=== PATIENT | female | born 1970 | race Caucasian/White ===

== ENCOUNTER 2018-10-23 14:30 | Emergency (ER) | payer MEDICAID, SELFPAY ==
[2018-10-23 14:30] VITALS: BP 123/98; PULSE 107; RESP 16; TEMP 37.1; O2SAT 98; BMI 29.2
--- NOTE | 2018-10-23 15:08 | RAD_ITS ---
STUDY: X-RAY - LEFT RADIUS AND ULNA REASON FOR EXAM: Female, 48 years old. Left forearm pain TECHNIQUE: 2 view(s) of the forearm. COMPARISON: None. FINDINGS: There is no demonstrated soft tissue swelling. Normal visualized radius. Normal visualized ulna. RAD/Forearm 2 Views IMPRESSION: Normal x-ray examination of the radius and ulna. Electronically Signed: Jerome Wisdom MD at 15:33 EST , Service support ,
--- NOTE | 2018-10-23 15:11 | ED.DCSUM_ITS ---
- ER Visit Summary Date of Service: 10/23/18 Chief Complaint: [Pain to left arm] History of Present Illness: The patient is a 48 F [presents the emergency department complaint of pain in her left arm that started about 2 weeks ago. Patient denies any trauma. 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 Patient is right-hand dominant. Patient has been seen by primary care physician and has x-rays ordered however she is been busy and unable to follow through with getting those done. Patient complains of pain starting at the elbow and alexia radiating towards the wrist. She denies any fevers.] Physical Examination: [HEENT-PERRLA, EOMI. Cranial nerves II through XII grossly intact. TMs clear. Mucous membranes moist. No adenopathy. Cardiovascular-regular rate and rhythm without murmur or ectopy Lungs-clear to auscultation, chest wall stable without crepitus or subcu emphysema Abdomen-normoactive bowel sounds, soft, nontender, no rebound or rigidity, no peritoneal signs. Extremities-intact ?4, normal range of motion, normal pulses. Left elbow-no erythema or warmth noted. No effusion noted. He has good range of motion flexion extension. Patient has pain with pronation and supination over the radial head. 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 Normal sensation.] Test Results: [X-rays of the left forearm and left elbow were obtained which were negative for fracture or bony lesions.] Emergency Department Course and Treatment: [Patient was given a sling] Treatment Plan: [Patient given a prescription for [place] and advised to follow-up with primary care physician within next 3-5 days.] Disposition: [Discharged home in stable condition] Impression: [Epicondylitis left elbow] This note was generated with [employer] dictation software. It may contain incorrect words, spelling, and punctuation that were not noted in review of the chart prior to signing Pain to the ED Disposition - Plan for ED Patient: Instructions: ED Epicondylitis Lateral Elbow Prescriptions: Hydrocodone Bitart/Apap 5-325 [[place] 5MG-325MG] 1 tab PO Q4H PRN PRN 2 Days #14 tab PRN Reason: Pain Referrals: Gabriel Alcantara DO [Primary Care Provider] - 3-5 Days
--- NOTE | 2018-10-23 15:19 | DCINST.ED_ITS ---
ED Disposition - Plan for ED Patient: Instructions: ED Epicondylitis Lateral Elbow Prescriptions: Hydrocodone Bitart/Apap 5-325 [[place] 5MG-325MG] 1 tab PO Q4H PRN PRN 2 Days #14 tab PRN Reason: Pain Referrals: Gabriel Alcantara DO [Primary Care Provider] - 3-5 Days
--- NOTE | 2018-10-23 15:20 | RAD_ITS ---
STUDY: X-RAY - LEFT ELBOW REASON FOR EXAM: Female, 48 years old. Left elbow pain TECHNIQUE: 3 view(s) of the elbow. COMPARISON: None. FINDINGS: Normal visualized humerus, radius and ulna. Normal radiocapitellar and ulnotrochlear articulations. The soft tissue structures are unremarkable. RAD/Elbow min 3 Views IMPRESSION: Normal x-ray examination of the elbow. Electronically Signed: Jerome Wisdom MD at 15:32 EST , Service support ,
[2018-10-23 15:45] VITALS: PULSE 94; RESP 17; O2SAT 97
== END 2018-10-23 15:46 | disposition home or self-care (01) ==
LOC: ED 15:18
PROVIDERS: Emergency Provider Emergency Medicine; Family Provider Student in an Organized Health Care Education/Training Program; PCP Student in an Organized Health Care Education/Training Program
DX: M77.12 Lateral epicondylitis, left elbow (principal); E78.00 Pure hypercholesterolemia, unspecified; E03.9 Hypothyroidism, unspecified; F32.9 Major depressive disorder, single episode, unspecified; Z72.0 Tobacco use; Z79.899 Other long term (current) drug therapy
CPT/HCPCS: 73080; 73090; 99283

== ENCOUNTER 2018-11-27 18:28 | Emergency (ER) | payer MEDICAID, SELFPAY ==
[2018-11-27 18:29] VITALS: BP 98/56; PULSE 92; RESP 16; TEMP 36.4; O2SAT 97; BMI 26.9
--- NOTE | 2018-11-27 19:01 | ED.VISSUMM ---
- ER Visit Summary Date of Service: 11/27/18 Chief Complaint: [place] eye History of Present Illness: The patient is a 48 F with pinkeye. Symptoms started yesterday. Patient reports red and irritated eyes as well as a goopy discharge. She does not wear contact lenses. Denies vision changes or systemic symptoms. Physical Examination: Patient has bilateral conjunctival injection and purulence, worse on the right. Pupils normal. Extraocular motion normal. Extraocular structures normal. Skin normal. Test Results: None Emergency Department Course and Treatment: Emycin ointment 4x a day for 5 days. Follow up with ophtho as needed. Treatment Plan: As above Disposition: Discharge Impression: 1. Bilateral conjunctivitis This note was generated with [employer] dictation software. It may contain incorrect words, spelling, and punctuation that were not noted in review of the chart prior to signing ED Disposition - Plan for ED Patient: Referrals: Gabriel Alcantara DO [Primary Care Provider] -
--- NOTE | 2018-11-27 19:04 | ED.DCSUM_ITS ---
- ER Visit Summary Date of Service: 11/27/18 Chief Complaint: [place] eye History of Present Illness: The patient is a 48 F with pinkeye. Symptoms started yesterday. Patient reports red and irritated eyes as well as a goopy discharge. She does not wear contact lenses. Denies vision changes or systemic symptoms. Physical Examination: Patient has bilateral conjunctival injection and purulence, worse on the right. Pupils normal. Extraocular motion normal. Extraocular structures normal. Skin normal. Test Results: None Emergency Department Course and Treatment: Emycin ointment 4x a day for 5 days. Follow up with ophtho as needed. Treatment Plan: As above Disposition: Discharge Impression: 1. Bilateral conjunctivitis This note was generated with [employer] dictation software. It may contain incorrect words, spelling, and punctuation that were not noted in review of the chart prior to signing ED Disposition - Plan for ED Patient: Referrals: Gabriel Alcantara DO [Primary Care Provider] -
--- NOTE | 2018-11-27 19:04 | ED.DEP ---
ED Disposition - Plan for ED Patient: Instructions: ED Conjunctivitis Bacterial Referrals: Gabriel Alcantara DO [Primary Care Provider] -
[2018-11-27] MEDS: Erythromycin Base 1 OPTH.TUBE 1 APPLIC EACH EYE (19:14)
== END 2018-11-27 19:15 | disposition home or self-care (01) ==
PROVIDERS: Emergency Provider Emergency Medicine; Family Provider Student in an Organized Health Care Education/Training Program; PCP Student in an Organized Health Care Education/Training Program
DX: H10.9 Unspecified conjunctivitis (principal); Z72.0 Tobacco use
CPT/HCPCS: 99282

== ENCOUNTER 2019-01-10 13:56 | Emergency (ER) | payer MEDICAID, SELFPAY ==
[2019-01-10 13:58] VITALS: BP 109/72; PULSE 61; RESP 16; TEMP 36.8; O2SAT 98; BMI 26.7
--- NOTE | 2019-01-10 14:58 | ED.VIS.GEN ---
History of Present Illness Chief Complaint: Upper Extremity Injury Informant: Patient Onset: Today Context: Sudden Onset Timing: Continuous Quality: Pain near the left scapular spine Location: Left scapular spine Current Severity: Mild Maximum Severity: Moderate Worsened by: Nothing per patient Relieved by: Better if she lies on it Associated Symptoms: No respiratory, cardiac or neurologic symptoms. Narrative: Patient is a middle-age woman who presents with acute onset of left scapular pain that started at 0500. She denies trauma. She denies cough, shortness of breath, difficulty breathing or pleuritic pain. She denies chest discomfort, orthopnea or PND. She denies history of PE or DVT. She denies leg pain, swelling or discoloration. She believes she may have pulled a muscle. She presents because she did not get relief after one ibuprofen tablet. She is a smoker. Prior similar symptoms: No Recent Illness/Hospitalization: No Past Medical History - Allergies and Home Meds Allergies/Adverse Reactions: Allergies Penicillins Allergy (Verified 01/10/19 14:00) Unknown adhesive tape Adverse Reaction (Verified 01/10/19 14:00) Rash Primary Care Physician: Gabriel Alcantara DO [Primary Care Provider] - Prior records reviewed: Yes - Medical history of depression, hypertension, hypercholesterolemia and hypot Surgical History: noncontributory Lives: Alone Smoking Status: Current every day smoker Alcohol: None Review of Systems General: Denies: Chills, Fever, Malaise, Subjective, Sweats, Weight loss, - ENT: Denies: Bilateral ear pain, Rhinorrhea, Sore throat Cardiovascular: Denies: Chest pain, Palpitations, Heart racing, -, - Respiratory: Denies: Dyspnea, Cough, Dyspnea on exertion Genitourinary: Denies: Dysuria, Hematuria, Frequency Musculoskeletal: Reports: Back pain, - - Reports she has history of tennis elbow on the left side and is wondering if it traveled up to her back.. Denies: Myalgias, Arthralgias, Neck pain, Swelling, Extremity Pain Skin: Denies: Rash, Wounds Neurological: Denies: Weakness, Parasthesia, Numbness Hematologic: Denies: Easy bruising, Easy bleeding Physical Exam Vital Signs/Narrative: Vital Signs Temp Pulse Resp BP Pulse Ox 01/10/19 13:58 98.2 F 61 16 109/72 98 Inital Vital Signs reviewed: Yes General: Well nourished, Well developed, No Acute Distress Head: Normocephalic, Atraumatic Eyes: Perrl, EOMI. Negative for: Pale conjunctiva, Scleral icterus, - ENT: Moist mucous membranes, No rhinorrhea Neck: Supple, Nontender, No lymphadenopathy, No JVD, - Cardiovascular: Regular rate, Regular rhythm, No murmurs, Normal S1, Normal S2 Respiratory: No distress, CTA bilaterally Back: Normal Inspection, - - There is pain to palpation medial aspect of the left scapula near this scapular spine.. Negative for: Nontender, CVA tenderness, Spinal tenderness Extremities: Nontender, No edema, - - Is no pain the patient of the shoulder, elbow, wrist or hand.. Negative for: Tenderness, Edema Skin: Normal color, No rash, No Trauma. Negative for: Cyanosis, Jaundice Neurological: Alert, Oriented x3, Cranial nerves II-XII grossly intact, Normal Strength, Normal Sensation, Normal DTR - Biceps, brachialis and triceps reflex are 1+. Excellent, median, radial and ulnar function are intact. Psychological: Normal affect Diagnostic/Tx/Re-eval - Medical Decision Making With reproducible pain and exacerbation with certain movements will treat as muscular pain. Patient's been instructed that her pain will not be alleviated after 1 ibuprofen. She will need to take ibuprofen for several days. Since pain is not pleuritic or exertional doubt pulmonary embolus, doubt cardiac etiology. There is no evidence of trauma. Will treat with anti-inflammatories since there is no contraindication. ED Disposition - Plan for ED Patient: Disposition: Home or Assisted Living Diagnosis: Upper back pain on left side Instructions: ED Spasm Back No Trauma Referrals: Gabriel Alcantara DO [Primary Care Provider] - 3-5 Days if not improving Additional Instructions: Apply ice 20 to 30 minutes per application 6-8 times a day. Take 1 ibuprofen tablet every 8 hours for the next 3 to 5 days. If no improvement follow-up with your primary care physician Dr. Alcantara.
[2019-01-10] MEDS: Ibuprofen 600 MG Tablet 800 MG PO (15:14)
== END 2019-01-10 15:15 | disposition home or self-care (01) ==
PROVIDERS: Emergency Provider Emergency Medicine; Family Provider Student in an Organized Health Care Education/Training Program; PCP Student in an Organized Health Care Education/Training Program
DX: M54.6 Pain in thoracic spine (principal); F17.200 Nicotine dependence, unspecified, uncomplicated
CPT/HCPCS: 99283

== ENCOUNTER 2019-10-10 15:10 | Emergency (ER) | payer MEDICAID, SELFPAY ==
[2019-10-10 15:12] VITALS: BP 120/79; PULSE 89; RESP 18; TEMP 36.6; O2SAT 97; BMI 29.6
--- NOTE | 2019-10-10 15:24 | ED.DCSUM_ITS ---
- ER Visit Summary Date of Service: 10/10/19 Chief Complaint: [Rash History of Present Illness: The patient is a 49 F [presents with a rash that started 3 days ago. Patient states that she woke up with itching to her chest. The rash is now on her wrists also. The rash is pruritic. She denies any new soaps or detergents. She denies any new medications. She denies recent illness. Patient has been to different friends homes but apparently none of them have bed bugs. Patient has had bedbugs in the past.] Physical Examination: [HEENT-PERRLA, EOMI. Cranial nerves II through XII grossly intact. TMs clear. Mucous membranes moist. No adenopathy. Cardiovascular-regular rate and rhythm without murmur or ectopy Lungs-clear to auscultation, chest wall stable without crepitus or subcu emphysema Abdomen-normoactive bowel sounds, soft, nontender, no rebound or rigidity, no p eritoneal signs. Skin exam-patient does have a erythematous papular rash over the central chest that is excoriated areas and inflamed. Patient also has similar-appearing rash on both volar wrists and on some of her fingers. Extremities-intact ?4, normal range of motion, normal pulses, atraumatic] Test Results: [None indicated] Emergency Department Course and Treatment: [We will start on prednisone.] Treatment Plan: [We will be treated with prednisone due to the inflammatory nature of the rash. Patient also will be treated with Elimite as I cannot rule out scabies.] Disposition: [Discharged home in stable condition. 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 It may contain incorrect words, spelling, and punctuation that were not noted in review of the chart prior to signing ED Disposition - Plan for ED Patient: Referrals: Gabriel Alcantara DO [Primary Care Provider] -
--- NOTE | 2019-10-10 15:27 | ED.DEP ---
ED Disposition - Plan for ED Patient: Instructions: Scabies, DERMATITIS, Non-Specific Prescriptions: Prednisone [Deltasone] 20 mg PO BID #10 tab Prescription Printed Permethrin [Elimite] 60 gm TP DAILY #1 cream..g. Prescription Printed Referrals: Gabriel Alcantara DO [Primary Care Provider] - 5-7 Days Villa Guevara MD [STAFF PHYSICIAN] - 5-7 Days
[2019-10-10] MEDS: predniSONE 20 MG Tablet 40 MG PO (16:00)
[2019-10-10 16:01] VITALS: PULSE 80; RESP 16; O2SAT 99
== END 2019-10-10 16:01 | disposition home or self-care (01) ==
LOC: ED 15:33
PROVIDERS: Emergency Provider Emergency Medicine; PCP Student in an Organized Health Care Education/Training Program
DX: L30.9 Dermatitis, unspecified (principal); Z72.0 Tobacco use
CPT/HCPCS: 99283

== ENCOUNTER 2019-12-23 09:32 | Emergency (ER) | payer MEDICAID, SELFPAY ==
[2019-12-23 09:34] VITALS: BP 135/67; PULSE 103; RESP 17; TEMP 36.8; O2SAT 98; BMI 30.1
--- NOTE | 2019-12-23 09:58 | ED.VIS.GEN ---
History of Present Illness Informant: Patient Onset: Weeks - 1 week Context: Gradual Onset Timing: Continuous Quality: inflamed Location: labia Current Severity: Mild Maximum Severity: Mild Worsened by: palpation Relieved by: nothing Associated Symptoms: denies Narrative: 49 year old female resents because she has a cyst on her labia. She noticed it a week ago. Had some mild bleeding. No drainage of purulent material. No fevers. No abdominal pain vomiting or diarrhea and no history of similar Prior similar symptoms: No Recent Illness/Hospitalization: No <Bereket Costello - Last Filed: 12/23/19 10:02> <Bhanu Vallejo - Last Filed: 12/23/19 15:14> Chief Complaint: Female C/O Past Medical History Prior records reviewed: Yes Past Medical History: None Surgical History: noncontributory Lives: Alone Smoking Status: Current every day smoker Alcohol: None Drugs: None <Bereket Costello - Last Filed: 12/23/19 10:02> <Bhanu Vallejo - Last Filed: 12/23/19 15:14> - Allergies and Home Meds Allergies/Adverse Reactions: Allergies Penicillins Allergy (Verified 12/23/19 09:34) Unknown adhesive tape Adverse Reaction (Verified 12/23/19 09:34) Rash Primary Care Physician: Gabriel Alcantara DO [Primary Care Provider] - Review of Systems All systems negative except as indicated General: Denies: Chills, Fever, Malaise Eyes: Denies: Visual changes - bilaterally, Blurred Vision - bilaterally, Diplopia ENT: Denies: Rhinorrhea, Sore throat Cardiovascular: Denies: Chest pain, Palpitations, Heart racing Respiratory: Denies: Dyspnea, Cough, Sputum Gastrointestinal: Denies: Abdominal pain, Nausea, Vomiting Genitourinary: Denies: Dysuria, Hematuria, Frequency Musculoskeletal: Denies: Myalgias, Arthralgias, Neck pain, Back pain Skin: Reports: Abscess. Denies: Rash, Abrasions, Wounds Neurological: Denies: Headache, Weakness, Parasthesia Psych: Denies: Depression, Anxiety <Bereket Costello - Last Filed: 12/23/19 10:02> Physical Exam Vital Signs/Narrative: Vital Signs Temp Pulse Resp BP Pulse Ox 12/23/19 09:34 98.2 F 103 H 17 135/67 H 98 Inital Vital Signs reviewed: Yes General: Well nourished, Well developed, No Acute Distress Head: Normocephalic, Atraumatic Eyes: Perrl, EOMI ENT: Moist mucous membranes Neck: Supple, Nontender, No lymphadenopathy, No JVD Cardiovascular: Regular rate, Regular rhythm, No murmurs Respiratory: No distress, CTA bilaterally, Chest nontender Abdomen: Soft, Nontender, Nondistended, Normal bowel sounds, No masses : - - Noninflamed or infected cyst on the left labia. No surrounding infection. No drainage or redness or abnormal skin changes Back: Nontender, Normal Inspection Extremities: Nontender, No edema Skin: Normal color, No rash, No Trauma Neurological: Alert, Oriented x3 Psychological: Normal affect, Normal Mood <Bereket Costello - Last Filed: 12/23/19 10:02> Diagnostic/Tx/Re-eval - Medical Decision Making Patient has a small cyst that is not infected or inflamed. She was reassured. Discussed proper wound care. Warm compresses were advised. Close follow-up with her doctor. She requested a prescription for Flagyl intravaginal which was provided. She declines an actual speculum exam. <Bereket Costello - Last Filed: 12/23/19 10:02> - Medical Decision Making Patient was seen with me. I did a [id number] examination with the patient. Patient presents with labial cyst. Patient states that she scratched it the other day and noted some bleeding from it. Currently, the patient denies any bleeding. Patient denies any fevers or chills. Patient admits to some dysuria but she thinks that is related to the scratched area. Patient states she has had a similar episode in the past and was given a prescription for Flagyl vaginal cream. Vital signs are stable. Patient is afebrile. Patient is in no acute distress. Oral mucosa is pink and moist. Heart was regular rate and rhythm. Lungs are clear and equal bilaterally. Abdomen is soft and nontender. Cranial nerves II through XII are intact. There are no focal motor or sensory deficits noted. Patient was given a prescription for Flagyl vaginal cream. Patient was instructed to follow-up with her primary care physician in 5 to 7 days. Patient understood and was agreeable with the plan. All questions were answered. <Bhanu Vallejo - Last Filed: 12/23/19 15:14> ED Disposition <Bereket Costello - Last Filed: 12/23/19 10:02> <Bhanu Vallejo - Last Filed: 12/23/19 15:14> - Plan for ED Patient: Disposition: Home or Assisted Living Diagnosis: Labial cyst Instructions: ED Bartholins Cyst No Infec Prescriptions: Mupirocin [Bactroban] 1 applic TOPICAL TID #1 tube Transmission Status: Received by [facility] [address] metroNIDAZOLE 0.75% [Metrogel Vaginal] 70 applic TOPICAL DAILY #1 tube Transmission Status: Received by [facility] [id number] Referrals: Gabriel Alcantara DO [Primary Care Provider] -
== END 2019-12-23 10:05 | disposition home or self-care (01) ==
LOC: ED 10:03
PROVIDERS: Emergency Provider Physician Assistant Medical; PCP Student in an Organized Health Care Education/Training Program
DX: N90.7 Vulvar cyst (principal); F17.200 Nicotine dependence, unspecified, uncomplicated
CPT/HCPCS: 99282

== ENCOUNTER → 2020-03-26 | Outpatient (CLI) | payer MEDICAID, SELFPAY ==
[2020-02-08 11:11] VITALS: BMI 30.1
--- NOTE | 2020-03-26 11:50 | NM_ITS ---
CLINICAL: 50-year-old female with reported history of right upper quadrant abdominal pain and nausea. RADIONUCLIDE HEPATOBILIARY SCINTIGRAPHY COMPARISON: None available FINDINGS: Following the intravenous administration of 5.4 mCi of 99m Tc Mebrofenin, hepatobiliary images reveal: 1. Relatively prompt and homogeneous radiopharmaceutical concentration is noted by a normal sized liver. No parenchymal defects are identified. 2. Gallbladder activity is identified at 15 minutes post radiopharmaceutical administration. 3. Small intestinal tract is observed at 10 minutes following tracer injection. 4. Washout of the radiopharmaceutical by the hepatic parenchyma appears qualitatively normal. Cholecystokinin (0.02 ug/kg) was administered intravenously over a 30-minute period. The post CCK gallbladder ejection fraction calculated at 20 minutes following Cholecystokinin administration was noted to be 9.0 % (normal greater than 35%). SD/Hepatobilliary Img w/Pharm Int IMPRESSION: 1. ABNORMAL 99m Tc Mebrofenin hepatobiliary imaging examination with Cholecystokinin. A. A gallbladder ejection fraction calculated to be less than 35% following the administration of Cholecystokinin is consistent with the presence of functional hepatobiliary disease (gallbladder and/or sphincter of Oddi dyskinesia) and/or organic hepatobiliary disease (chronic acalculous cholecystitis and/or cystic duct syndrome) in patients with intermediate to high pretest probabilities of hepatobiliary illness. (Addison Montenegro et al, Journal of Nuclear Medicine 32:1695, 1991). Electronically Signed: Travis Simpson DO at 22:43 EDT Tel , Service support ,
== END | disposition home or self-care (01) ==
PROVIDERS: PCP Student in an Organized Health Care Education/Training Program
DX: R10.11 Right upper quadrant pain (principal); R11.2 Nausea with vomiting, unspecified
CPT/HCPCS: 78227; A9537; J2805

== ENCOUNTER 2020-05-11 11:47 | Emergency (ER) | payer MEDICAID, SELFPAY ==
[2020-02-08 11:11] VITALS: BMI 30.1
[2020-05-11 11:49] VITALS: BP 150/124; PULSE 111; RESP 18; TEMP 36.9; O2SAT 98; BMI 30.8
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
--- NOTE | 2020-05-11 13:37 | ED.VISSUMM ---
- ER Visit Summary Date of Service: 05/11/20 Chief Complaint: Medication refill History of Present Illness: The patient is a 50 F who presents for medication refill. She has a history of depression and anxiety and takes Effexor and trazodone. She denies any suicidal or homicidal thoughts. She has been staying with her sister. She is able to take care of herself. She follows with the counseling center. Physical Examination: Afebrile and vital signs unremarkable except for heart rate of 111. Heart regular. Lungs clear. Abdomen soft. Skin appears normal. Patient is alert and oriented. Cranial nerves grossly intact. Good strength and sensation. Normal gait. Test Results: None performed Emergency Department Course and Treatment: We contacted the counseling center. The patient has prescriptions for Effexor and trazodone. They were recently refilled. She has 5 refills. On further discussion with the patient, she believes they are not strong enough and is requesting something stronger to help with her depression symptoms. We spoke with Britt at the counseling center. Apparently the patient had been staying there in the residential portion. She was evicted for inappropriate behavior with another female. She was recently started on her medications on April 19. They did not want to change her medications, but they want her to continue on the same medications and the same dosages. She is to do this until her appointment on 23 May. If she would like to be seen sooner, she should call to be on the cancellation list. Patient is not suicidal or homicidal. She exhibits forward thinking. She is alert and oriented. The social media intern agrees. Counseling center agrees. Patient will be discharged. After the patient was discharged, social work spoke to the patient's sister. She had mentioned something about inappropriate contact with a minor yesterday evening. On further discussion with the patient's sister, the patient was at a bar with several other people including the minor and the minors mother. There was no physical contact or inappropriate or illegal contact. Please see the social workers note for complete details. There is no indication to call law enforcement or child protective services. Treatment Plan: As above Disposition: Discharge Impression: Medication refill, history of mood disorder This note was generated with [employer] software. It may contain incorrect words, spelling, and punctuation that were not noted in review of the chart prior to signing ED Disposition - Plan for ED Patient: Disposition: Home or Assisted Living Instructions: ED Depression Referrals: Counseling,Center [GROUP OF PHYSICIANS] -
--- NOTE | 2020-05-11 13:40 | ED.DEP ---
ED Disposition - Plan for ED Patient: Instructions: ED Depression Referrals: Counseling,Center [GROUP OF PHYSICIANS] -
--- NOTE | 2020-05-11 13:49 | ED.RN ---
DISCHARGE INSTRUCTIONS GIVEN TO AND REVIEWED WITH PATIENT, PATIENT DENIES QUESTIONS OR CONCERNS AND VOICES UNDERSTANDING OF DISCHARGE INSTRUCTIONS. PT AMBULATES OUT OF ROOM WITHOUT DIFFICULTY.
--- NOTE | 2020-05-11 21:00 | ED.RN ---
[facility] called and asked out discharge medications. looking at patient records patient was not given any medications. Taggs made aware.
== END 2020-05-11 13:49 | disposition home or self-care (01) ==
PROVIDERS: Emergency Provider Emergency Medicine; PCP Student in an Organized Health Care Education/Training Program
DX: F41.9 Anxiety disorder, unspecified (principal); F32.9 Major depressive disorder, single episode, unspecified; Z76.0 Encounter for issue of repeat prescription; J44.9 Chronic obstructive pulmonary disease, unspecified; Z72.0 Tobacco use; E78.00 Pure hypercholesterolemia, unspecified; Z79.51 Long term (current) use of inhaled steroids; Z79.899 Other long term (current) drug therapy
CPT/HCPCS: 99284

== ENCOUNTER 2020-06-05 06:28 | Emergency (ER) | payer MEDICAID, SELFPAY ==
[2020-06-05 06:32] VITALS: BP 112/66; PULSE 76; RESP 16; TEMP 36.5; O2SAT 97; BMI 28.8
--- NOTE | 2020-06-05 06:57 | ED.VIS.GEN ---
History of Present Illness Chief Complaint: Other, Pain/Inj Narrative: Patient presenting for evaluation secondary to neck pain. Patient reports that she has intermittently been dealing with neck pain for quite some time now. She is under the care of a chiropractor for this. She typically sees him every . Patient states that her last chiropractic manipulation was on last week since Thursday she has been dealing with intermittent neck spasms. Patient reports that this typically occurs on the left side of her neck. Patient states that she was going to try to see if she could call her chiropractor to move up the appointment from until today, but she was continuing to have these paroxysms of pain so she decided come to the emergency department. Patient denies any presence of fevers. She denies any numbness or weakness or radiation of the pain to the arms. No recent injections or surgeries, no history of IV drug abuse. No fevers chills night sweats or unintended weight loss. View of systems otherwise negative. Past Medical History - Allergies and Home Meds Allergies/Adverse Reactions: Allergies Penicillins Allergy (Verified 06/05/20 06:30) Unknown adhesive tape Adverse Reaction (Verified 06/05/20 06:30) Rash Primary Care Physician: Gabriel Alcantara DO [Primary Care Provider] - Past Medical History: - - Schizophrenia, chronic neck pain Surgical History: noncontributory Smoking Status: Current every day smoker Review of Systems All systems negative except as indicated General: Denies: Chills, Fever, Sweats Eyes: Denies: Visual changes - bilaterally, Diplopia ENT: Denies: Rhinorrhea, Sore throat Cardiovascular: Denies: Chest pain, Palpitations Respiratory: Denies: Dyspnea, Cough, Dyspnea on exertion Gastrointestinal: Denies: Abdominal pain, Nausea, Vomiting, Diarrhea, Melena, Hematochezia Genitourinary: Denies: Dysuria, Hematuria, Frequency Musculoskeletal: Reports: Neck pain Skin: Denies: Rash, Wounds Neurological: Denies: Headache, Weakness, Numbness Physical Exam Vital Signs/Narrative: Vital Signs Temp Pulse Resp BP Pulse Ox 06/05/20 06:32 97.7 F L 76 16 112/66 97 Inital Vital Signs reviewed: Yes General: Well nourished, Well developed, No Acute Distress Head: Normocephalic, Atraumatic Eyes: Perrl, EOMI ENT: Moist mucous membranes, No rhinorrhea Neck: Supple, Nontender, - - Tenderness to palpation over the patient's left trapezius and sternocleidomastoid, no midline tenderness, normal range of motion. No carotid bruits. Cardiovascular: Regular rate, Regular rhythm, No murmurs Respiratory: No distress, CTA bilaterally, Chest nontender Abdomen: Soft, Nontender, Nondistended, Normal bowel sounds Back: Nontender, Normal Inspection Extremities: Nontender, No edema Skin: Normal color, No rash Neurological: Alert, Oriented x3, Cranial nerves II-XII grossly intact, Normal Strength, Normal Sensation, - - 5 out of 5 strength at shoulder elbow wrist and hand with normal sensation over all dermatomes, 2+ brachioradialis biceps and triceps reflexes. Psychological: Normal affect, Normal Mood Diagnostic/Tx/Re-eval - Medical Decision Making Patient is presenting with a history and physical consistent with neck spasms. She has a normal neurologic exam. I do not believe that imaging or laboratory work-up is indicated. Patient will be treated with a lidocaine patch in the emergency department, she will be discharged with a course of the same as well as Flexeril. She is instructed to follow-up with her chiropractor. ED Disposition - Plan for ED Patient: Disposition: Home or Assisted Living Diagnosis: Neck muscle spasm Instructions: ED SPASM Muscle Prescriptions: cycloBENZAPRine HCl [Flexeril] 10 mg PO TID PRN #20 tab PRN Reason: Muscle Spasm Prescription Printed Lidocaine [Lidoderm] 1 ea TP DAILY #10 adh..patch Prescription Printed Referrals: Gabriel Alcantara DO [Primary Care Provider] - As Needed
[2020-06-05] MEDS: Lidocaine 5% Patch 1 PATCH TOPICAL (07:19)
[2020-06-05 07:24] VITALS: PULSE 80; RESP 17; O2SAT 96
== END 2020-06-05 07:26 | disposition home or self-care (01) ==
PROVIDERS: Emergency Provider Emergency Medicine; PCP Student in an Organized Health Care Education/Training Program
DX: M62.838 Other muscle spasm (principal); M54.2 Cervicalgia; G89.29 Other chronic pain; F20.9 Schizophrenia, unspecified; F17.200 Nicotine dependence, unspecified, uncomplicated; Z79.899 Other long term (current) drug therapy
CPT/HCPCS: 99281

== ENCOUNTER 2021-02-05 15:50 | Emergency (ER) | payer MEDICAID, SELFPAY ==
[2021-02-05 15:50] VITALS: BP 109/73; PULSE 89; RESP 15; TEMP 36.8; O2SAT 98; BMI 31.1
--- NOTE | 2021-02-05 16:22 | ED.VIS.LOWEX ---
HPI History of Present Illness Chief Complaint: Lower Extremity Injury Informant: patient Narrative Narrative: Patient has left foot pain. She stepped in a hole yesterday. She has pain on the lateral part of the foot there is worse with movement and with walking. No previous fractures. She took Tylenol today which did help with the pain. She did notice some minimal swelling yesterday. [facility] Medical History (Updated 02/05/21 @ 17:[address] Isaiah Chavez MD) Asthma Back problem COPD (chronic obstructive pulmonary disease) Frequent headaches Hearing problem High cholesterol Thyroid cancer Home Medications levothyroxine 125 mcg PO DAILY 07/01/16 [History Last Taken Unknown] atorvastatin 40 mg PO DAILY 02/10/17 [History Last Taken Unknown] venlafaxine 75 mg PO BID 02/10/17 [History Last Taken Unknown] ciclesonide 160 mcg/actuation aerosol inhaler 1 puff INHALATION DAILY 02/09/20 [History Last Taken Unknown] oxybutynin chloride 10 mg tablet,extended release 24 hr 10 mg PO DAILY 02/09/20 [History Last Taken Unknown] cyclobenzaprine 10 mg PO TID PRN #20 tab 06/05/20 [Rx Last Taken Unknown] lidocaine 1 ea TP DAILY #10 adh..patch 06/05/20 [Rx Last Taken Unknown] quetiapine 50 mg PO QHS 06/05/20 [History Last Taken Unknown] Allergy/AdvReac Type Severity Reaction Status Date / Time Penicillins Allergy Unknown Verified 06/05/20 06:30 adhesive tape AdvReac Rash Verified 06/05/20 06:30 Family History Mother Anxiety and depression Brother AIDS (acquired immune deficiency syndrome) Surgical History History of bilateral breast reduction surgery Social History Smoking Status: Current every day smoker alcohol intake: never substance use type: does not use additional social history: DOES TAKE ASPIRIN DOES TAKE IBUPROFEN ROS ROS ED Constitutional Constitutional ED: Denies chills or fever(s) Eyes Eyes: Denies blurry vision, change in vision or diplopia ENT ENT ED: Denies ear pain, rhinorrhea or sore throat Cardiovascular Cardiovascular: Denies chest pain or palpitations Respiratory/Chest Respiratory/Chest: Denies cough, dyspnea or sputum Gastrointestinal Gastrointestinal: Denies abdominal pain, diarrhea, nausea or vomiting Genitourinary Genitourinary ED: Denies dysuria, hematuria or urinary frequency Musculoskeletal Musculoskeletal: Reports other Details: Left foot pain Integumentary Denies change in pigmentation or rash Neurologic Neurologic: Denies headache(s), numbness or weakness Psychiatric Psychiatric: Denies anxiety or depression Endocrine Endocrinology: Denies polydipsia or polyuria EXAM Physical Exam Const Vital Signs: 02/05/21 15:50 Temperature 98.3 F Temperature Source Temporal Pulse Rate 89 Respiratory Rate 15 Blood Pressure 109/73 Blood Pressure Mean 85 Pulse Ox 98 Oxygen Delivery Method Room Air Positive well nourished and well developed General Appearance ED: well developed HEENT normocephalic and atraumatic Eyes PERRL Extremity Extremity Narrative: Left foot is tender at the base of the fifth metatarsal. No swelling noted. No calcaneal or malleoli or tenderness. She has limited range of motion secondary to pain. She has a 2+ DP pulse. Neuro oriented x3 and CN's II-XII intact bilaterally Sensorium / Orientation: alert Motor Exam: strength 5/5 throughout Psych mental status grossly normal Skin Rashes: no rashes MDM MDM MDM Narrative Medical decision making narrative: Foot x-ray is obtained and shows no fractures. Patient will use ice and NSAIDs at home. Radiography Diagnostic Testing: Radiology Impression Foot X-Ray 02/05/21 16:35 IMPRESSION: Normal x-ray examination of the foot. Electronically Signed: Harish Moran MD at 17:31 EDT , Service support , Discharge Plan Triage Chief Complaint: Lower Extremity Injury ED Provider: Isaiah Chavez Dx/Rx/DC Orders Clinical Impression: Sprain of foot, left Instructions: ED Foot Sprain Prescriptions: No Action oxybutynin chloride 10 mg tablet extended release 24hr 10 mg PO DAILY RF: 0 Alvesco 160 mcg/actuation HFA aerosol inhaler 1 puff INHALATION DAILY RF: 0 levothyroxine 50 MCG tablet 125 mcg PO DAILY RF: 0 atorvastatin 40 MG tablet 40 mg PO DAILY RF: 0 venlafaxine 75 MG tablet 75 mg PO BID RF: 0 quetiapine 50 MG tablet 50 mg PO QHS RF: 0 cyclobenzaprine 10 MG tablet 10 mg PO TID PRN (Reason: Muscle Spasm) Qty: 20 RF: 0 lidocaine 1 EACH adhesive patch,medicated 1 ea TP DAILY Qty: 10 RF: 0 Primary Care Provider: Gabriel Alcantara Referrals: Gabriel Alcantara DO [Primary Care Provider] - Disposition Disposition: Home, self care
--- NOTE | 2021-02-05 16:35 | RAD_ITS ---
STUDY: X-RAY - LEFT FOOT CLINICAL: Female, 50 years old. fall in hole, foot pain TECHNIQUE: 3 view(s) of the foot. COMPARISON: None. FINDINGS: No visualized fracture. Normal talus, calcaneus, and tarsal bones. Normal visualized subtalar, talonavicular, calcaneocuboid, tarsal and tarsometatarsal articulations. Normal metatarsi. Normal metatarsophalangeal joint of the great toe. Normal tibial and fibular sesamoid bones. Normal interphalangeal joint of the great toe. Normal phalanges of the great toe. Normal second through fifth metatarsophalangeal joints. Normal interphalangeal joints and phalanges of the lesser toes. The soft tissue structures are unremarkable. RAD/Foot min 3 Views IMPRESSION: Normal x-ray examination of the foot. Electronically Signed: Harish Moran MD at 17:31 EDT , Service support ,
== END 2021-02-05 17:50 | disposition home or self-care (01) ==
PROVIDERS: Emergency Provider Emergency Medicine; PCP Student in an Organized Health Care Education/Training Program
DX: S93.602A Unspecified sprain of left foot, initial encounter (principal); J44.9 Chronic obstructive pulmonary disease, unspecified; E78.00 Pure hypercholesterolemia, unspecified; F17.200 Nicotine dependence, unspecified, uncomplicated; Z79.899 Other long term (current) drug therapy; X58.XXXA Exposure to other specified factors, initial encounter; Y93.89 Activity, other specified; Y92.89 Other specified places as the place of occurrence of the external cause; Y99.8 Other external cause status
CPT/HCPCS: 73630; 99282

== ENCOUNTER 2021-07-04 12:29 | Day surgery (SDC) | payer MEDICAID, SELFPAY ==
[2021-07-03 12:05] LABS: Hematocrit 41.3 % (37-47); Hemoglobin 13.2 g/dL (12.0-15.0); Mean Corpuscular Hgb 26.6 pg (27.0-32.0); Mean Corpuscular Volume 83.1 fL (81-99); Mean Platelet Vol. 12.7 fl (6.2-12.0); Platelet Count 165 K/mm3 (150-450); RBC Distribution Width CV 12.8 % (11.6-14.6); RBC Distribution Width SD 38.5 fl (35.1-43.9); Red Blood Count 4.97 M/mm3 (4.2-5.4); White Blood Count 3.8 K/mm3 (4.4-11.0)
--- NOTE | 2021-07-04 | EMB_PTH ---
PATIENT: KEVIN DIANE [place] [facility] [place][id number] AGE/SX: 51/F ROOM: RE07/04/[address]: Dr. Meagan Gonzales DO : 1970 BED: DIS: 07/04/2021 SPEC #: [id number] RECD: 07/05/21 09:52 STATUS: DEJUAN ELDON #: [id number] FLORINA: 07/04/21 00:[address]: Meagan Gonzales DEPT: SURGICAL PATHOLOGY RECD BY: Miguel Ray ENTERED: 07/05/21 09:53 SP TYPE: ENDOM BX/C ISMAEL DR: Dr. Gabriel Alcantara DO Tissues: Endometrium, NOS Procedures: Surgery Specimen Level IV HEADER OPERATION: Hysteroscopy, dilation and curettage PRE-OP DIAGNOSIS: Cystic changes with endometrium on US, postmenopausal bleeding TISSUE SUBMITTED: Endometrial curettings MICROSCOPIC DIAGNOSIS Endometrial curettings: Strips of benign endometrial epithelium and superficial fragments of benign endometrial tissue. Fragments of benign ecto- and endocervical epithelium, blood and mucous. See comment. DOMI:homero 07/08/2021 COMMENT The specimen predominantly consists of benign ecto- and endocervical epithelium, blood and mucous. Correlation with clinical findings and appropriate follow up are necessary. MICROSCOPIC DESCRIPTION Slides are reviewed. GROSS DESCRIPTION Received in fixative is one container labeled with the patient's name and designated endometrial curettings. The specimen consists of multiple fragments of hemorrhagic soft tissue that in aggregate measure 1.5 x 0.5 x 0.1 cm. The specimen is totally submitted in one cassette. / DOMI:homero 07/05/21 TC:4 CPT: 90034
[2021-07-04 13:03] VITALS: BP 103/60; PULSE 61; RESP 16; TEMP 36.5; O2SAT 98; BMI 28.9
[2021-07-04 13:07] LABS: Internal QC Validated? YES +Cl - CLEAR BKGD; Pregnancy, Urine Negative Negative
[2021-07-04] MEDS: Lactated Ringers 1,000 ML 15 ML IV ×2 (13:10→15:00)
--- NOTE | 2021-07-04 15:02 | PCM.DC ---
Discharge Instructions Diet Discharge Diet: No restrictions Activity Discharge Activity: May Drive (After 24 hours) and May Shower Return to work on:: 07/08/21 May resume sexual activity in: 1 week (No tampons, intercourse, hot tubs, tub baths, pools for 1 week) Weight Bearing Status: Weight bearing as tolerated Lifting Restrictions: None Dressing / Incision Call your doctor if you observe: Fever of 101 or Higher, Coldness, Increased Pain, Numbness or Tingling, Change in Color, Inability to urinate, Inability to have a bowel movement, Using more than 1 pad per hour, Shortness of breath, Dizziness, Fainting spells, Swelling in the ankles, Chest pain, Increased palpitations (irregular heartbeat), Calf discomfort and Uncontrolled pain Follow Up Care Please Follow Up With: Christian When: 1 week Test Results: Test results from this visit will be discussed in further detail at your follow-up appointment, if applicable. Discharge Plan Admission Attending Provider: Meagan Gonzales Primary Care Provider: Gabriel Alcantara Discharge Orders/Prescriptions Prescriptions: Continued oxybutynin chloride 10 mg tablet extended release 24hr 10 mg PO DAILY RF: 0 Alvesco 160 mcg/actuation HFA aerosol inhaler 1 puff INHALATION DAILY RF: 0 levothyroxine 50 MCG tablet 125 mcg PO DAILY RF: 0 atorvastatin 40 MG tablet 40 mg PO DAILY RF: 0 venlafaxine 75 MG tablet 75 mg PO BID RF: 0 quetiapine 50 MG tablet 50 mg PO QHS RF: 0 cyclobenzaprine 10 MG tablet 10 mg PO TID PRN (Reason: Muscle Spasm) Qty: 20 RF: 0 lansoprazole 15 mg Capsule,Delayed Release(Dr/Ec) 15 mg PO DAILY RF: 0 budesonide-formoterol [Symbicort] 160-4.5 mcg/actuation Hfa Aerosol Inhaler 1 puff INHALATION Q12H RF: 0 Linzess 145 mcg Capsule 145 mcg PO QODAY RF: 0 Referrals / Follow Up: Gabriel Alcantara DO [Primary Care Provider] - Disposition Disposition (needs filled in before D/C Order can be placed): Home, Self Care
--- NOTE | 2021-07-04 15:52 | OP.PCM_ITS ---
Problems Associated Problem List Diagnoses (1) PMB (postmenopausal bleeding): Report of Operation Date of Procedure: 07/04/21 Pre-Operative Diagnosis: PMB, thickened endometrium on pelvic ultrasound Post-Operative Diagnosis: As above, atrophic cervix, cervical stenosis, retroflexed uterus Surgery/Procedure Performed:: Attempted hysteroscopy D&C Description of Surgical Findings:: Narrow introitus and atrophic cervix noted. No descent of uterus and cervix. Significant cervical stenosis noted as well as a retroflexed uterus. Surgeon: Christian restaurant supervisor: None Type of Anesthesia: MAC Special Medications: None Specimen's removed: Endometrial curettings Drains: None Estimated Blood Loss (mL): < 50 cc Fluids Replaced: 0 cc fluid deficit Description of Procedure: The patient was taken to the operating room where MAC anesthesia was found to be adequate. She was prepped and draped in the dorsal lithotomy position using yellowfin stirrups. Visualization was poor with multiple retractors due to atrophy, a narrow introitus, and no uterine descent. A medium size speculum was placed for good visualization of the cervix. The cervix was atrophic and flush with the vagina. The anterior lip of the cervix was attempted to be grasped with a single-tooth tenaculum as well as an Allis clamp, but the tissue was atrophic and the instruments would pull through the anterior lip of the cervix. The 3-0 [address] was used to place a single interrupted stitch through the anterior lip of the cervix for traction. The cervix was stenotic and dilation was performed. The uterus was noted to be severely retroflexed. The hysteroscope was unable to be placed. Attempted to place the hysteroscope and dilate further using Bethel dissection- the cervical canal was dilated but on unable to make the turn posteriorly to enter into the uterine cavity. Hysteroscope was removed. The uterus sounded to 6 cm. No perforation noted and the fundus was palpated with the uterine sound. A sharp curettage was performed for a small amount of tissue. Endometrial curettings were sent to pathology for review. All instruments were removed from the vagi na. Bleeding was static. Instrument, sponge, needle counts were correct. Diagnostic was performed. Patient was taken to the prep room in stable condition. Grafts/Implants Used: None Procedure Start Time: 15:21 Procedure Stop Time: 15:51 Complications None Admit VTE Documentation VTE Present on Admission: No VTE Mechan Device Prophylaxis: SCD's VTE Pharm Prophylaxis ordered?: No
[2021-07-04 16:05] VITALS: BP 103/60; BP 120/96; PULSE 69; RESP 16; TEMP 35.9; O2SAT 99
[2021-07-04 16:10] VITALS: BP 103/60; BP 125/61; PULSE 62; RESP 18; O2SAT 95
[2021-07-04 16:15] VITALS: BP 103/60; BP 124/68; PULSE 50; RESP 18; O2SAT 97
[2021-07-04 16:20] VITALS: BP 103/60; BP 111/67; PULSE 50; RESP 18; TEMP 36.1; O2SAT 96
[2021-07-04 17:14] VITALS: BP 102/68; BP 103/60; PULSE 55; RESP 16; TEMP 36.8; O2SAT 97
== END 2021-07-04 17:17 | disposition home or self-care (01) ==
LOC: SDC 12:29 → AC 12:30
PROVIDERS: PCP Student in an Organized Health Care Education/Training Program; Referring Provider Obstetrics & Gynecology; Visit Provider Obstetrics & Gynecology
PROC: 0UDB8ZZ Extraction of Endometrium, Via Natural or Artificial Opening Endoscopic (ICD-10-PCS; CPT 58558; principal; 2021-07-04 13:45)
DX: N95.0 Postmenopausal bleeding (principal); R93.89 Abnormal findings on diagnostic imaging of other specified body structures; N88.2 Stricture and stenosis of cervix uteri; N88.8 Other specified noninflammatory disorders of cervix uteri; J45.909 Unspecified asthma, uncomplicated; F32.A Depression, unspecified; K21.9 Gastro-esophageal reflux disease without esophagitis; E78.2 Mixed hyperlipidemia; E66.9 Obesity, unspecified; E03.9 Hypothyroidism, unspecified; F17.210 Nicotine dependence, cigarettes, uncomplicated; Z68.29 Body mass index [BMI] 29.0-29.9, adult; Z79.51 Long term (current) use of inhaled steroids; Z79.899 Other long term (current) drug therapy
CPT/HCPCS: 00952; 58558; 36415; 81025; 85027; 86850; 86900; 86901; 87426; 88305; C9803; J7120

== ENCOUNTER 2021-09-13 15:02 | Emergency (ER) | payer MEDICAID, SELFPAY ==
[2021-09-13 15:02] VITALS: BP 127/73; PULSE 79; RESP 16; TEMP 36.3; O2SAT 97; BMI 31.7
--- NOTE | 2021-09-13 15:18 | EX.ED.GENINJ ---
HPI History of Present Illness Chief Complaint: Fall Informant: patient Onset/Context/Timing Onset: Today Mechanism/Context: Fall Location of pain/injuries: - (Right ribs) Quality of Pain: Aching Current Severity: Mild Maximum Severity: Mild Narrative Narrative: Patient presents after fall in her shower and striking her right ribs. Patient states she slipped as she was stepping over the edge of the tub. She grabbed a bar but still hit her right ribs against the edge of the shower/tub. Patient denies striking her head or loss of consciousness. She has pain along the lateral portion of her right ribs. She denies shortness of breath. [facility] Medical History (Updated 09/13/21 @ 15:[address] Randi Rebollar MD) Alcohol use Anxiety Arthritis Asthma Back pain Bipolar disorder Bite from insect Complete edentulism, class III COPD (chronic obstructive pulmonary disease) Depression Diarrhea Easy bruising Frequent headaches Gastric reflux Hearing problem High cholesterol History of irregular heartbeat Injury of head and neck Leg cramps Loss of hearing Marijuana use Schizophrenia Shortness of breath on exertion Smoker Syncope Thyroid disease Wears glasses Home Medications levothyroxine 125 mcg PO DAILY 07/01/16 [History Last Taken Unknown] atorvastatin 40 mg PO DAILY 02/10/17 [History Last Taken Unknown] venlafaxine 75 mg PO BID 02/10/17 [History Last Taken Unknown] ciclesonide 160 mcg/actuation aerosol inhaler 1 puff INHALATION DAILY 02/09/20 [History Last Taken Unknown] oxybutynin chloride 10 mg tablet,extended release 24 hr 10 mg PO DAILY 02/09/20 [History Last Taken Unknown] cyclobenzaprine 10 mg PO TID PRN #20 tab 06/05/20 [Rx Last Taken Unknown] quetiapine 50 mg PO QHS 06/05/20 [History Last Taken Unknown] Linzess 145 mcg PO QODAY 07/02/21 [History Last Taken Unknown] budesonide-formoterol [Symbicort] 1 puff INHALATION Q12H 07/02/21 [History Last Taken Unknown] lansoprazole 15 mg PO DAILY 07/02/21 [History Last Taken Unknown] Allergy/AdvReac Type Severity Reaction Status Date / Time Penicillins Allergy Unknown Verified 09/13/21 15:06 adhesive tape AdvReac Rash Verified 09/13/21 15:06 bee venom protein (honey bee) AdvReac RED RAISED Verified 09/13/21 15:06 SKIN Family History Mother Anxiety and depression Brother AIDS (acquired immune deficiency syndrome) Surgical History History of bilateral breast reduction surgery Hx laparoscopic cholecystectomy Hx of breast biopsy Hx of colonoscopy Social History Smoking Status: Current every day smoker tobacco type: cigarettes alcohol intake: never substance use type: does not use additional social history: DOES TAKE ASPIRIN DOES TAKE IBUPROFEN ROS ROS ED Constitutional Constitutional ED: Denies chills or fever(s) Eyes Eyes: Denies change in vision ENT ENT ED: Denies sore throat Cardiovascular Cardiovascular: Reports chest pain Respiratory/Chest Respiratory/Chest: Denies cough or dyspnea Gastrointestinal Gastrointestinal: Denies abdominal pain, diarrhea, nausea or vomiting Genitourinary Genitourinary ED: Denies dysuria Musculoskeletal Musculoskeletal: Denies back pain Integumentary Denies rash Neurologic Neurologic: Denies headache(s) or weakness Allergic/Immunologic Allergic/Immunologic ED: Denies urticaria EXAM Physical Exam Const Vital Signs: 09/13/21 15:02 09/13/21 15:16 Temperature 97.3 F L Temperature Source Temporal Pulse Rate 79 Respiratory Rate 16 Respiratory Effort Normal Non-Labored Respiratory Depth Normal Respiratory Pattern Normal Blood Pressure 127/73 H Blood Pressure Mean 91 Pulse Ox 97 Oxygen Delivery Method Room Air Room Air Positive well nourished and well developed General Appearance ED: well developed HEENT atraumatic Eyes PERRL and EOMs intact bilaterally Neck full ROM Chest Wall Chest Narrative: Mild tenderness along the right lateral chest wall. No crepitus. Small area of bruising noted. Resp normal respiratory effort and clear to auscultation bilaterally Cardio regular rhythm Rate: regular rate GI non-tender Palpation: soft Extremity normal to inspection Neuro oriented x3 Sensorium / Orientation: alert Psych mental status grossly normal Skin Skin Narrative: Ecchymosis as noted above. MDM MDM MDM Narrative Medical decision making narrative: Right rib series with chest x-ray obtained. Treatment and Re-Evaluation Comments:: Rib x-rays from interpretation but no acute fracture. No evidence of pneumothorax. No subcutaneous air. Patient be discharged with instructions to continue supportive care. Discharge Plan Triage Chief Complaint: Fall ED Provider: Randi Rebollar Dx/Rx/DC Orders Clinical Impression: Contusion of rib on right side Instructions: ED Contusion, Rib Prescriptions: No Action oxybutynin chloride 10 mg tablet extended release 24hr 10 mg PO DAILY RF: 0 Alvesco 160 mcg/actuation HFA aerosol inhaler 1 puff INHALATION DAILY RF: 0 levothyroxine 50 MCG tablet 125 mcg PO DAILY RF: 0 atorvastatin 40 MG tablet 40 mg PO DAILY RF: 0 venlafaxine 75 MG tablet 75 mg PO BID RF: 0 quetiapine 50 MG tablet 50 mg PO QHS RF: 0 cyclobenzaprine 10 MG tablet 10 mg PO TID PRN (Reason: Muscle Spasm) Qty: 20 RF: 0 lansoprazole 15 mg Capsule,Delayed Release(Dr/Ec) 15 mg PO DAILY RF: 0 budesonide-formoterol [Symbicort] 160-4.5 mcg/actuation Hfa Aerosol Inhaler 1 puff INHALATION Q12H RF: 0 Linzess 145 mcg Capsule 145 mcg PO QODAY RF: 0 Primary Care Provider: Gabriel Alcantara Referrals: Gabriel Alcantara DO [Primary Care Provider] - 1-2 Weeks Disposition Disposition: Home, Self Care
--- NOTE | 2021-09-13 15:25 | RAD_ITS ---
STUDY: X-RAY - UNILATERAL RIBS ( RIGHT ) WITH CHEST REASON FOR EXAM: Female, 51 years old. Injury TECHNIQUE - RIBS: 2 view(s) of the ribs. TECHNIQUE - CHEST: Single PA view of the chest. COMPARISON: Comparison is made with prior chest radiograph dated 04/08/2015. FINDINGS - RIBS: Normal visualized ribs without a demonstrated fracture. FINDINGS - CHEST: The lungs are clear and expanded. There is no demonstrated pleural abnormality. Normal size heart. Normal mediastinum and gt. Normal visualized pulmonary arteries. Normal visualized aortic arch and descending thoracic aorta. Normal visualized thoracic spine. Normal visualized ribs, clavicles, and shoulders. There is no demonstrated abnormality of the visualized soft tissue structures of the upper abdomen. RAD/Ribs Uni Min 3V w/PA Chest IMPRESSION: RIBS: Normal x-ray examination of the ribs. CHEST: Normal x-ray examination of the chest. Electronically Signed: Carlos Lennon MD at 15:40 EST , Service support ,
== END 2021-09-13 15:52 | disposition home or self-care (01) ==
PROVIDERS: Emergency Provider Emergency Medicine; PCP Student in an Organized Health Care Education/Training Program; Visit Provider Emergency Medicine
DX: S20.211A Contusion of right front wall of thorax, initial encounter (principal); F17.210 Nicotine dependence, cigarettes, uncomplicated; W01.0XXA Fall on same level from slipping, tripping and stumbling without subsequent striking against object, initial encounter
CPT/HCPCS: 71101; 99282

== ENCOUNTER 2021-11-04 19:51 | Emergency (ER) | payer MEDICAID, SELFPAY ==
[2021-11-04 19:52] VITALS: BP 142/82; PULSE 75; RESP 16; TEMP 36.2; O2SAT 98; BMI 31.7
--- NOTE | 2021-11-04 20:58 | EKG12_ITS ---
Test Reason : ABDOMINAL PAIN Blood Pressure : / mmHG Vent. Rate : 056 BPM Atrial Rate : 056 BPM P-R Int : 146 ms QRS Dur : 072 ms QT Int : 466 ms P-R-T Axes : 042 058 056 degrees QTc Int : 449 ms Sinus bradycardia Otherwise normal ECG Confirmed by SHERRELL MORRIS, RANDA ([id number]), editor map TONYA PAULA ([id number]) on 11/07/2021 10:02:39 AM Referred By: DR DELEON Confirmed By:RANDA WYNNE MD
--- NOTE | 2021-11-04 21:00 | EDS_ITS ---
HPI History of Present Illness Chief Complaint: Abd Pain Informant: patient Narrative Narrative: Patient's triage note says chest pain worried about pancreatic cancer. However, patient clearly shows that her pain is in the lower left chest and will radiate up This is been going on for between 1 or 2 weeks. It is worse if she coughs. She has no change in appetite. She has no jaundice. No back or flank pain. No change in bowel habits or bowel stool color. She has no pleuritic pain. She states she was treated about 3 weeks ago for bronchitis. She was given unknown antibiotics and prednisone. She was coughing a lot but the coughing is getting better now. She has her inhalers. Her wheezing is lessening. She has never had a DVT or PE. Her brother might of had a DVT. She has no travel surgery or immobilization. She has no leg pain or swelling. [facility] Medical History Alcohol use Anxiety Arthritis Asthma Back pain Bipolar disorder Bite from insect Complete edentulism, class III COPD (chronic obstructive pulmonary disease) Depression Diarrhea Easy bruising Frequent headaches Gastric reflux Hearing problem High cholesterol History of irregular heartbeat Injury of head and neck Leg cramps Loss of hearing Marijuana use Schizophrenia Shortness of breath on exertion Smoker Syncope Thyroid disease Wears glasses Home Medications levothyroxine 125 mcg PO DAILY 07/01/16 [History Last Taken Unknown] atorvastatin 40 mg PO DAILY 02/10/17 [History Last Taken Unknown] venlafaxine 75 mg PO BID 02/10/17 [History Last Taken Unknown] ciclesonide 160 mcg/actuation aerosol inhaler 1 puff INHALATION DAILY 02/09/20 [History Last Taken Unknown] oxybutynin chloride 10 mg tablet,extended release 24 hr 10 mg PO DAILY 02/09/20 [History Last Taken Unknown] cyclobenzaprine 10 mg PO TID PRN #20 tab 06/05/20 [Rx Last Taken Unknown] quetiapine [Seroquel] 50 mg PO QHS 06/05/20 [History Last Taken Unknown] Linzess 145 mcg PO QODAY 07/02/21 [History Last Taken Unknown] budesonide-formoterol [Symbicort] 1 puff INHALATION Q12H 07/02/21 [History Last Taken Unknown] lansoprazole [Prevacid 24Hr] 15 mg PO DAILY 07/02/21 [History Last Taken Unknown] cholecalciferol (vitamin D3) [Vitamin D3] 25 mcg PO DAILY 11/04/21 [History Last Taken Unknown] Allergy/AdvReac Type Severity Reaction Status Date / Time Penicillins Allergy Unknown Verified 11/04/21 19:53 adhesive tape AdvReac Rash Verified 11/04/21 19:53 bee venom protein (honey bee) AdvReac RED RAISED Verified 11/04/21 19:53 SKIN Family History Mother Anxiety and depression Brother AIDS (acquired immune deficiency syndrome) Surgical History History of bilateral breast reduction surgery Hx laparoscopic cholecystectomy Hx of breast biopsy Hx of colonoscopy Social History Smoking Status: Current every day smoker tobacco type: cigarettes alcohol intake: never substance use type: does not use additional social history: DOES TAKE ASPIRIN DOES TAKE IBUPROFEN ROS ROS ED Constitutional Constitutional ED: Denies chills or fever(s) Eyes Eyes: Denies blurry vision ENT ENT ED: Denies rhinorrhea or sore throat Cardiovascular Cardiovascular: Denies palpitations or racing heartbeat Respiratory/Chest Respiratory/Chest: Reports cough; Denies dyspnea or sputum Gastrointestinal Gastrointestinal: Denies abdominal pain, constipation, diarrhea, melena, nausea or vomiting Genitourinary Genitourinary ED: Denies dysuria Musculoskeletal Musculoskeletal: Denies arthralgias, back pain, myalgias or neck pain Integumentary Denies rash Neurologic Neurologic: Denies headache(s) or weakness Psychiatric Psychiatric: Reports anxiety and depression Endocrine Endocrinology: Denies polydipsia or polyuria Allergic/Immunologic Allergic/Immunologic ED: Denies urticaria EXAM Physical Exam Const Vital Signs: 11/04/21 19:52 11/04/21 21:31 Temperature 97.2 F L Temperature Source Temporal Pulse Rate 75 52 L Respiratory Rate 16 18 Blood Pressure 142/82 H Blood Pressure Mean 102 Pulse Ox 98 Oxygen Delivery Method Room Air Positive well nourished HEENT Negative for trauma or tenderness Eyes Eyes Narrative: No icterus seen at all General Eye ED: Negative for pale conjunctiva or scleral icterus Neck no JVD Chest Wall inspection of chest normal Chest Narrative: Mild left chest wall tenderness. No crepitance. No subcu air. Resp normal respiratory effort Resp Narrative: Patient has a wheeze only with forced expiration. No wheezing with normal breathing. She does not feel short of breath. Effort and Inspection: Negative for pain with movement Auscultation: wheezes; Negative for rales or rhonchi Cardio regular rate and regular rhythm GI normal to inspection, nondistended, normoactive bowel sounds and non-tender GI Narrative: Abdomen is soft, nontender. There is no mass. No epigastric or left upper quadrant tenderness. No CVA tenderness. No distended veins. No rashes Palpation: soft Back/Spine no CVA tenderness Extremity normal to inspection Extremity Narrative: No edema, cords, asymmetry, tenderness along the deep venous system or distended veins. General Extremety ED: Negative for edema or tenderness General Extremity: Negative for edema Neuro Sensorium / Orientation: alert Psych mental status grossly normal Skin no rashes or lesions noted General Skin Exam: Negative for jaundice MDM MDM MDM Narrative Medical decision making narrative: Chest x-ray shows no acute process. Patient's electrolytes liver function tests are all normal except for alk phos at 162. Lipase is normal. Troponin is negative. D-dimer is negative. CBC is negative. I think patient's okay to go home. She likely has discomfort from frequent coughing. This is improving. I explained that she can have outpatient CT or ultrasound if she is concerned about pancreatic cancer. However, her symptoms do not match this and there is no clinical indication of that at this time. We do not need to do that acutely. She should follow up with her primary physician regardless of recent resolution of her symptoms. Lab Data Attestation: I reviewed the patient's lab results. Labs: Laboratory Results - last 24 hr 11/04/21 11/04/21 11/04/21 20:45 20:45 21:03 WBC 9.3 RBC 5.08 Hgb 14.3 Hct 43.8 MCV 86.2 MCH 28.1 MCHC 32.6 RDW Std Deviation 44.0 H RDW Coeff of Luis 14.1 Plt Count 233 MPV 12.0 Immature Gran % (Auto) 0.300 Neut % (Auto) 48.4 Lymph % (Auto) 45.0 H Miner % (Auto) 4.7 Eos % (Auto) 1.3 Baso % (Auto) 0.3 Absolute Neuts (auto) 4.5 Absolute Lymphs (auto) 4.20 Nucleated RBC % 0 D-Dimer Quant (PE/DVT) 0.31 Sodium 139 Potassium 3.5 Chloride 106 Carbon Dioxide 28.0 Anion Gap 5 BUN 7 Creatinine 0.98 Estim Creat Clear Calc 78.07 Est GFR (MDRD) Af Amer 77 Est GFR (MDRD) Non-Af 64 BUN/Creatinine Ratio 7.1 L Glucose 93 Calcium 9.4 Total Bilirubin 0.40 AST 31 ALT 30 Alkaline Phosphatase 162 H Troponin I High Sens 8 Total Protein 7.1 Albumin 3.6 Globulin 3.5 Albumin/Globulin Ratio 1.0 Lipase 90 Radiography Diagnostic Testing: Clinical Impression(s) from Imaging Studies Chest X-Ray 11/04/21 21:12 IMPRESSION: 1. No radiographic evidence of acute cardiopulmonary disease. Electronically Signed: Lawson Schwartz DO at 22:16 EDT , EKG Initial EKG: Comments: EKG done for left-sided chest pain read by me shows sinus rhythm with slightly bradycardic rate at 58. No ectopy. No acute ST elevation or depression. Mild nonspecific changes. UT interval, QRS duration and QTc normal. Discharge Plan Triage Chief Complaint: Abd Pain ED Provider: Shen Mcginnis Dx/Rx/DC Orders Clinical Impression: Left-sided chest wall pain Instructions: ED Chest Pain, Uncertain Cause Prescriptions: No Action oxybutynin chloride 10 mg tablet extended release 24hr 10 mg PO DAILY RF: 0 Alvesco 160 mcg/actuation HFA aerosol inhaler 1 puff INHALATION DAILY RF: 0 levothyroxine 50 MCG tablet 125 mcg PO DAILY RF: 0 atorvastatin 40 MG tablet 40 mg PO DAILY RF: 0 venlafaxine 75 MG tablet 75 mg PO BID RF: 0 quetiapine [Seroquel] 50 MG tablet 50 mg PO QHS RF: 0 cyclobenzaprine 10 MG tablet 10 mg PO TID PRN (Reason: Muscle Spasm) Qty: 20 RF: 0 lansoprazole [Prevacid 24Hr] 15 mg Capsule,Delayed Release(Dr/Ec) 15 mg PO DAILY RF: 0 budesonide-formoterol [Symbicort] 160-4.5 mcg/actuation Hfa Aerosol Inhaler 1 puff INHALATION Q12H RF: 0 Linzess 145 mcg Capsule 145 mcg PO QODAY RF: 0 cholecalciferol (vitamin D3) [Vitamin D3] 25 mcg (1,000 unit) Tablet,Chewable 25 mcg PO DAILY RF: 0 Primary Care Provider: Gabriel Alcantara Referrals: Gabriel Alcantara DO [Primary Care Provider] - 3-5 Days Disposition Disposition: Home, Self Care
--- NOTE | 2021-11-04 21:12 | RAD_ITS ---
INDICATION: cough EXAMINATION/TECHNIQUE: X-RAY - XR Chest 1 View COMPARISON: Chest x-ray 09/13/2021. FINDINGS: LINES/DEVICES: None. LUNGS: Symmetric normal lung volumes. No airspace opacity or abnormal interstitial pattern. No nodule or mass. No pleural effusion or pneumothorax. MEDIASTINUM AND CARDIOVASCULAR STRUCTURES: Normal size and contour of the cardiomediastinal silhouette. No evidence of pulmonary vascular congestion. BONES AND SOFT TISSUES: No abnormality within limits of the exam. RAD/Chest 1 View (Portable) IMPRESSION: 1. No radiographic evidence of acute cardiopulmonary disease. Electronically Signed: Lawson Schwartz DO at 22:16 EDT ,
[2021-11-04 21:19] LABS: Absolute Neutrophil Count 4.5 X10^3/uL (2.0-7.7); Basophil# 0.03 X10^3/uL; Basophil% 0.3 % (0-1); Eosinophil# 0.12 X10^3/uL; Eosinophils% 1.3 % (0-5); Hematocrit 43.8 % (37-47); Hemoglobin 14.3 g/dL (12.0-15.0); Mean Corp Hgb Conc 32.6 g/dL (32-36); Mean Corpuscular Hgb 28.1 pg (27.0-32.0); Mean Corpuscular Volume 86.2 fL (81-99); Monocyte# 0.44 X10^3/uL; Monocyte% 4.7 % (0-10); NRBC Flagged by Analyzer 0 % (0-5); Neutrophil # 4.51 X10^3/uL (2.7-7.7); Neutrophil % 48.4 % (47-70); Platelet Count 233 K/mm3 (150-450); RBC Distribution Width CV 14.1 % (11.6-14.6); Red Blood Count 5.08 M/mm3 (4.2-5.4); White Blood Count 9.3 K/mm3 (4.4-11.0)
[2021-11-04 21:26] LABS: D-Dimer Quantitative (DVT/PE) 0.31 FEU/ug/m (0.27-0.49)
[2021-11-04] MEDS: Ipratropium/Albuterol Sulfate 3 ML AMPUL.NEB INHALATION (21:29)
[2021-11-04 21:31] VITALS: PULSE 52; RESP 18
[2021-11-04 21:31] LABS: AST(SGOT) 31 U/L (15-37); Alanine Aminotransfer ALT/SGPT 30 U/L (13-56); Albumin, Serum 3.6 g/dL (3.2-5.0); Alkaline Phosphatase 162 U/L (45-117); Anion Gap 5 (5-15); BUN 7 mg/dL (7-18); BUN/Creat Ratio 7.1 RATIO (10-20); Calcium,Total 9.4 mg/dL (8.5-10.1); Chloride 106 mmol/L (98-107); Creatinine, Serum 0.98 mg/dL (0.55-1.02); EST Glomerular Filtration Rate 64 mL/min (>60); Est Glom Filt Rate - Afr Amer 77 mL/min (>60); Estimated Creatinine Clearance 78.07 ml/min; Globulin 3.5 g/dL (2.2-4.2); Glucose 93 mg/dL (74-106); Lipase 90 U/L (73-393); Potassium 3.5 mmol/L (3.5-5.1); Protein, Total 7.1 g/dL (6.4-8.2); Sodium Level 139 mmol/L (136-145); Troponin-I HS 8 pg/mL (3.0-54.0)
== END 2021-11-04 22:32 | disposition home or self-care (01) ==
PROVIDERS: Emergency Provider Emergency Medicine; PCP Student in an Organized Health Care Education/Training Program; Visit Provider Emergency Medicine
DX: R07.89 Other chest pain (principal); J44.9 Chronic obstructive pulmonary disease, unspecified; F31.9 Bipolar disorder, unspecified; F41.9 Anxiety disorder, unspecified; E78.00 Pure hypercholesterolemia, unspecified; K21.9 Gastro-esophageal reflux disease without esophagitis; F17.210 Nicotine dependence, cigarettes, uncomplicated; Z79.899 Other long term (current) drug therapy
CPT/HCPCS: 71045; 80053; 83690; 84484; 85025; 85379; 93005; 94640; 99283; A4216

== ENCOUNTER 2021-12-19 16:11 | Emergency (ER) | payer MEDICAID, SELFPAY ==
[2021-12-19 16:12] VITALS: BP 142/78; PULSE 98; RESP 16; TEMP 36.6; O2SAT 98; BMI 30.1
--- NOTE | 2021-12-19 16:37 | EDS_ITS ---
HPI History of Present Illness Chief Complaint: Dizziness Informant: patient Onset/Context/Timing Onset: Today and Hours Context: Gradual Onset Timing: Continuous Current Severity: Gone Maximum Severity: Mild Narrative Narrative: 51-year-old female history of anxiety, COPD, bipolar and hypothyroidism. States that taking her psychiatric medications today she did not have much on her stomach. Said she felt lightheaded. She then later today within the last couple hours ate a cheese steak sandwich and says she feels much better now. She denies any headache or chest pain. She denies any abdominal pain. Last night she had 1 episode of vomiting. No diarrhea. No fever. No melena. States she feels much better currently. No dysuria. Prior similar symptoms: Yes Recent Illness/Hospitalization: No PFSH PFSH Medical History Alcohol use Anxiety Arthritis Asthma Back pain Bipolar disorder Bite from insect Complete edentulism, class III COPD (chronic obstructive pulmonary disease) Depression Diarrhea Easy bruising Frequent headaches Gastric reflux Hearing problem High cholesterol History of irregular heartbeat Injury of head and neck Leg cramps Loss of hearing Marijuana use Schizophrenia Shortness of breath on exertion Smoker Syncope Thyroid disease Wears glasses Home Medications levothyroxine 125 mcg PO DAILY 07/01/16 [History Last Taken Unknown] atorvastatin 40 mg PO DAILY 02/10/17 [History Last Taken Unknown] venlafaxine 75 mg PO BID 02/10/17 [History Last Taken Unknown] ciclesonide 160 mcg/actuation aerosol inhaler 1 puff INHALATION DAILY 02/09/20 [History Last Taken Unknown] oxybutynin chloride 10 mg tablet,extended release 24 hr 10 mg PO DAILY 02/09/20 [History Last Taken Unknown] cyclobenzaprine 10 mg PO TID PRN #20 tab 06/05/20 [Rx Last Taken Unknown] quetiapine [Seroquel] 50 mg PO QHS 06/05/20 [History Last Taken Unknown] Linzess 145 mcg PO QODAY 07/02/21 [History Last Taken Unknown] budesonide-formoterol [Symbicort] 1 puff INHALATION Q12H 07/02/21 [History Last Taken Unknown] lansoprazole [Prevacid 24Hr] 15 mg PO DAILY 07/02/21 [History Last Taken Un known] cholecalciferol (vitamin D3) [Vitamin D3] 25 mcg PO DAILY 11/04/21 [History Last Taken Unknown] Allergy/AdvReac Type Severity Reaction Status Date / Time Penicillins Allergy Unknown Verified 12/19/21 16:15 adhesive tape AdvReac Rash Verified 12/19/21 16:15 bee venom protein (honey bee) AdvReac RED RAISED Verified 12/19/21 16:15 SKIN Family History Mother Anxiety and depression Brother AIDS (acquired immune deficiency syndrome) Surgical History History of bilateral breast reduction surgery Hx laparoscopic cholecystectomy Hx of breast biopsy Hx of colonoscopy Social History Smoking Status: Current every day smoker tobacco type: cigarettes alcohol intake: never substance use type: does not use additional social history: DOES TAKE ASPIRIN DOES TAKE IBUPROFEN ROS ROS ED ROS Narrative Vomiting x1 last night. Review of Systems ROS Unobtainable: Denies due to encephalopathy Constitutional Constitutional ED: Denies chills or fever(s) Eyes Eyes: Denies change in vision ENT ENT ED: Denies ear pain, rhinorrhea or sore throat Cardiovascular Cardiovascular: Denies chest pain or palpitations Respiratory/Chest Respiratory/Chest: Denies cough or dyspnea Gastrointestinal Gastrointestinal: Reports nausea and vomiting; Denies abdominal pain or diarrhea Genitourinary Genitourinary ED: Denies dysuria or hematuria Musculoskeletal Musculoskeletal: Denies arthralgias or myalgias Integumentary Denies rash Neurologic Neurologic: Denies headache(s) Psychiatric Psychiatric: Denies depression Endocrine Endocrinology: Denies polyuria Allergic/Immunologic Allergic/Immunologic ED: Denies urticaria EXAM Physical Exam Narrative Exam Narrative: 51-year-old female no acute distress. Vital signs stable afebrile. H EENT exam unremarkable. Neck nontender. Lungs clear to auscultation bilaterally. Heart regular rhythm no murmur. Abdomen soft, nontender, nondistended normal bowel sounds no peritoneal signs. Moving all 4 extremities. Nontender no edema. Normal range of motion. Back nontender. Neurologic exam normal. NIH 0. 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 Bilateral fingertip to nose. Dorsi plantarflexion intact. Awake alert. Answering questions following commands. No facial droop. Normal speech. Get up out of bed and ambulate about the room without any difficulty. Const Vital Signs: 12/19/21 16:12 Temperature 98 F Temperature Source Temporal Pulse Rate 98 Respiratory Rate 16 Blood Pressure 142/78 H Blood Pressure Mean 99 Pulse Ox 98 Oxygen Delivery Method Room Air Positive well nourished, well developed and obese; Negative for cachectic, contractures or unkempt General Appearance ED: well developed and NAD; Negative for unkempt, cachectic, contractures, cyanotic, diaphoretic or pallor Nutritional Appearance: obese; Negative for cachectic HEENT Reports moist mucous membranes Negative for trauma or tenderness Eyes PERRL and EOMs intact bilaterally General Eye ED: Negative for pale conjunctiva or scleral icterus Neck no lymphadenopathy, supple and no JVD General: Negative for tenderness Chest Wall inspection of chest normal and palpation of chest normal Resp normal respiratory effort and clear to auscultation bilaterally Effort and Inspection: Negative for pain with movement Auscultation: Negative for rales, rhonchi or wheezes Cardio regular rate, regular rhythm, S1 normal heart sound, S2 normal heart sound and no murmurs GI normal to inspection, nondistended, normoactive bowel sounds, non-tender, non- distended and no masses Inspection: Negative for abdominal distention Auscultation: normoactive bowel sounds Palpation: soft; Negative for tender, guarding or rebound tenderness present Back/Spine no CVA tenderness General Back: Negative for CVA tenderness Cervical Spine: Negative for cervical spine tenderness Thoracic Spine / Upper Back: Negative for thoracic spinal tenderness Extremity normal to inspection General Extremety ED: Negative for edema or tenderness General Extremity: Negative for edema Neuro oriented x3 and CN's II-XII intact bilaterally Sensorium / Orientation: alert; Negative for orientation impaired, lethargic or stuporous Motor Exam: strength 5/5 throughout; Negative for general weakness Psych mental status grossly normal Appearance: Negative for unkempt Mood & Affect: Negative for depressed or tearful Skin no rashes or lesions noted and no wounds General Skin Exam: Negative for elasticity normal, jaundice or pallor MDM MDM MDM Narrative Medical decision making narrative: 51-year-old female with lightheadedness that resolved after she ate. Exam is normal. Her vital signs are normal. I do not think she needs any testing. She is comfortable being discharged to home. Discharge Plan Triage Chief Complaint: Dizziness ED Provider: Miguel Arechiga Dx/Rx/DC Orders Clinical Impression: Dizziness, History of bipolar disorder Instructions: ED Dizziness, Uncertain Cause Prescriptions: No Action oxybutynin chloride 10 mg tablet extended release 24hr 10 mg PO DAILY RF: 0 Alvesco 160 mcg/actuation HFA aerosol inhaler 1 puff INHALATION DAILY RF: 0 levothyroxine 50 MCG tablet 125 mcg PO DAILY RF: 0 atorvastatin 40 MG tablet 40 mg PO DAILY RF: 0 venlafaxine 75 MG tablet 75 mg PO BID RF: 0 quetiapine [Seroquel] 50 MG tablet 50 mg PO QHS RF: 0 cyclobenzaprine 10 MG tablet 10 mg PO TID PRN (Reason: Muscle Spasm) Qty: 20 RF: 0 lansoprazole [Prevacid 24Hr] 15 mg Capsule,Delayed Release(Dr/Ec) 15 mg PO DAILY RF: 0 budesonide-formoterol [Symbicort] 160-4.5 mcg/actuation Hfa Aerosol Inhaler 1 puff INHALATION Q12H RF: 0 Linzess 145 mcg Capsule 145 mcg PO QODAY RF: 0 cholecalciferol (vitamin D3) [Vitamin D3] 25 mcg (1,000 unit) Tablet,Chewable 25 mcg PO DAILY RF: 0 Primary Care Provider: Gabriel Alcantara Referrals: Gabriel Alcantara DO [Primary Care Provider] - 3-5 Days if not improving Activity Restrictions/Additional Instructions: Follow-up with your doctor if not improving. Make sure to drink plenty of flu ids a day and eat throughout the day. Disposition Disposition: Home, Self Care
== END 2021-12-19 16:55 | disposition home or self-care (01) ==
LOC: ED 16:51
PROVIDERS: Emergency Provider Emergency Medicine; PCP Student in an Organized Health Care Education/Training Program; Visit Provider Emergency Medicine
DX: R42 Dizziness and giddiness (principal); J44.9 Chronic obstructive pulmonary disease, unspecified; F31.9 Bipolar disorder, unspecified; F41.9 Anxiety disorder, unspecified; E78.00 Pure hypercholesterolemia, unspecified; E03.9 Hypothyroidism, unspecified; Z79.899 Other long term (current) drug therapy; M19.90 Unspecified osteoarthritis, unspecified site; K21.9 Gastro-esophageal reflux disease without esophagitis; Z79.890 Hormone replacement therapy
CPT/HCPCS: 99282

== ENCOUNTER 2022-01-10 11:29 | Emergency (ER) | payer MEDICAID, SELFPAY ==
[2022-01-10 11:31] VITALS: BP 147/110; PULSE 99; RESP 18; TEMP 37.1; O2SAT 95; BMI 30.2
== END 2022-01-10 11:45 | disposition left against medical advice (07) ==
LOC: ED 12:49
PROVIDERS: PCP Student in an Organized Health Care Education/Training Program
DX: R06.02 Shortness of breath (principal); Z53.21 Procedure and treatment not carried out due to patient leaving prior to being seen by health care provider

== ENCOUNTER 2022-02-27 13:41 | Emergency (ER) | payer MEDICAID, SELFPAY ==
[2022-02-27 13:42] VITALS: BP 126/56; PULSE 89; RESP 16; TEMP 36; O2SAT 98; BMI 27.6
--- NOTE | 2022-02-27 13:45 | RAD_ITS ---
STUDY: X-RAY - RIGHT ANKLE REASON FOR EXAM: Female, 51 years old. INJURY TECHNIQUE: 3 view(s) of the ankle. COMPARISON: Right ankle x-ray dated February 22, 2015 FINDINGS: Normal visualized distal tibia and fibula. Normal medial and lateral malleoli. Normal tibiotalar articulation and ankle mortise. Normal visualized talus and calcaneus. The visualized subtalar, talonavicular, calcaneocuboid and tarsal articulations are normal. There is no demonstrated fracture. The soft tissue structures are unremarkable. RAD/Ankle min 3 Views IMPRESSION: Normal x-ray examination of the ankle. Electronically Signed: Harish Moran MD at 14:38 EDT ,
--- NOTE | 2022-02-27 13:54 | EDS_ITS ---
HPI <BISMARK Hansen - Last Filed: 02/27/22 14:12> History of Present Illness Chief Complaint: Lower Extremity Injury Narrative Narrative: Prior to arrival patient tripped on uneven sidewalk and rolled her right ankle. She caught her self with her hands and knees. No head injury. There is swelling and pain over the lateral ankle but she is able to ambulate. PFSH <BISMARK Hansen - Last Filed: 02/27/22 14:12> [facility] Medical History Alcohol use Anxiety Arthritis Asthma Back pain Bipolar disorder Bite from insect Complete edentulism, class III COPD (chronic obstructive pulmonary disease) Depression Diarrhea Easy bruising Frequent headaches Gastric reflux Hearing problem High cholesterol History of irregular heartbeat Injury of head and neck Leg cramps Loss of hearing Marijuana use Schizophrenia Shortness of breath on exertion Smoker Syncope Thyroid disease Wears glasses Home Medications levothyroxine 50 mcg tablet 125 mcg PO DAILY 07/01/16 [History Last Taken Unknown] atorvastatin 40 mg tablet 40 mg PO DAILY 02/10/17 [History Last Taken Unknown] venlafaxine 75 mg tablet 75 mg PO BID 02/10/17 [History Last Taken Unknown] ciclesonide 160 mcg/actuation aerosol inhaler (Alvesco) 1 puff inhalation DAILY 02/09/20 [History Last Taken Unknown] oxybutynin chloride 10 mg tablet,extended release 24 hr 10 mg PO DAILY 02/09/20 [History Last Taken Unknown] cyclobenzaprine 10 mg tablet 10 mg PO TID PRN Muscle Spasm #20 tabs 06/05/20 [Rx Last Taken Unknown] quetiapine 50 mg tablet (Seroquel) 50 mg PO QHS 06/05/20 [History Last Taken Unknown] budesonide-formoterol HFA 160 mcg-4.5 mcg/actuation aerosol inhaler (Symbicort) 1 puff inhalation Q12H 07/02/21 [History Last Taken Unknown] lansoprazole 15 mg capsule,delayed release (Prevacid 24Hr) 15 mg PO DAILY 07/02/21 [History Last Taken Unknown] linaclotide 145 mcg capsule (Linzess) 145 mcg PO QODAY 07/02/21 [History Last Taken Unknown] cholecalciferol (vitamin D3) 25 mcg (1,000 unit) chewable tablet (Vitamin D3) 25 mcg PO DAILY 11/04/21 [History Last Taken Unknown] Allergy/AdvReac Type Severity Reaction Status Date / Time Penicillins Allergy Unknown Verified 01/10/22 11:31 adhesive tape AdvReac Rash Verified 01/10/22 11:31 bee venom protein (honey bee) AdvReac RED RAISED Verified 01/10/22 11:31 SKIN Family History Mother Anxiety and depression Brother AIDS (acquired immune deficiency syndrome) Surgical History History of bilateral breast reduction surgery Hx laparoscopic cholecystectomy Hx of breast biopsy Hx of colonoscopy Social History Smoking Status: Current every day smoker tobacco type: cigarettes alcohol intake: never substance use type: does not use additional social history: DOES TAKE ASPIRIN DOES TAKE IBUPROFEN ROS <BISMARK Hansen - Last Filed: 02/27/22 14:12> ROS ED ROS Narrative Constitutional: Negative for fever, chills, malaise. Eyes: Negative for visual change. ENT: Negative for sore throat, ear pain, rhinorrhea. CVS: Negative for palpitations, chest pain, syncope. Respiratory: Negative for shortness of breath, cough, orthopnea. GI: Negative for abdominal pain, nausea, vomiting, diarrhea, constipation, melena, hematochezia. : Negative for dysuria, hematuria or frequency. Neuro: Negative for headache, motor/sensory dysfunction. Skin: Negative for rash, abscess, or wound. Musc: Positive for ankle pain, swelling, trauma. Heme: Negative for easy bruising, bleeding, lymphadenopathy. EXAM <BISMARK Hansen - Last Filed: 02/27/22 14:12> Physical Exam Narrative Exam Narrative: CONST: Patient sitting in no acute distress. EYES: Normal inspection. NECK: Normal inspection. RESP: No respiratory distress, CTAB. CVS: Regular rate and rhythm, no murmur, no gallop. Back: Normal inspection, no CVA tenderness. SKIN: Color normal, no rash, warm, dry, intact. EXTREMITIES: Soft tissue swelling and tenderness over right lateral malleolus and ATFL, no deformity or crepitus. No tenderness of proximal fibula medial ankle or foot. Full range of motion, 2+ DP pulse, normal sensation. Achilles intact. NEURO: Oriented x4. PSYCH: Normal affect. Const Vital Signs: 02/27/22 13:42 Temperature 96.8 F L Temperature Source Temporal Pulse Rate 89 Respiratory Rate 16 Blood Pressure 126/56 H Blood Pressure Mean 79 Pulse Ox 98 Oxygen Delivery Method Room Air <Dr. Abhinav Crawford DO - Last Filed: 02/27/22 14:12> Physical Exam Const Vital Signs: 02/27/22 13:42 Temperature 96.8 F L Temperature Source Temporal Pulse Rate 89 Respiratory Rate 16 Blood Pressure 126/56 H Blood Pressure Mean 79 Pulse Ox 98 Oxygen Delivery Method Room Air MDM <BISMARK Hansen - Last Filed: 02/27/22 14:12> [facility] Narrative Medical decision making narrative: Patient rolled her right ankle and has soft tissue swelling and tenderness over the lateral malleolus. No other tenderness of the leg or foot, neurovascularly intact. X-ray shows no fracture or dislocation. Patient requested an Abraham wrap and is able to ambulate and we discussed RICE protocol and she was discharged in stable condition. 1. Right ankle pain 2. Right ankle sprain Radiography Diagnostic Testing: ED attending interpretation of right ankle shows no fracture or dislocation. <Dr. Abhinav Crawford, - Last Filed: 02/27/22 14:12> [facility] Narrative Medical decision making narrative: Patient rolled her right ankle and has soft tissue swelling and tenderness over the lateral malleolus. No other tenderness of the leg or foot, neurovascularly intact. X-ray shows no fracture or dislocation. Patient requested an Abraham wrap and is able to ambulate and we discussed RICE protocol and she was discharged in stable condition. 1. Right ankle pain 2. Right ankle sprain I performed a history and physical examination of the patient and discussed management plan with the physician staff physical therapy assistant. I reviewed the physician staff physical therapy assistant's note and agree with the documented findings and plan of care. Patient has pain and mild swelling to the lateral malleolus. No fifth metatarsal pain no fibular head pain no tibial shaft pain. Achilles is intact. My interpretation of plain films of the x-ray of the ankle is no acute fracture. Abhinav Crawford DO MS Discharge Plan Triage Chief Complaint: Lower Extremity Injury ED Midlevel Provider: Audrey Abebe ED Provider: Abhinav Crawford Dx/Rx/DC Orders Clinical Impression: Right ankle sprain Instructions: ED Ankle Sprain (Adult) Prescriptions: No Action oxybutynin chloride 10 mg tablet extended release 24hr 10 mg PO DAILY Alvesco 160 mcg/actuation HFA aerosol inhaler 1 puff INHALATION DAILY levothyroxine 50 MCG tablet 125 mcg PO DAILY atorvastatin 40 MG tablet 40 mg PO DAILY venlafaxine 75 MG tablet 75 mg PO BID quetiapine [Seroquel] 50 MG tablet 50 mg PO QHS cyclobenzaprine 10 MG tablet 10 mg PO TID PRN (Reason: Muscle Spasm) Qty: 20 0RF lansoprazole [Prevacid 24Hr] 15 mg Capsule,Delayed Release(Dr/Ec) 15 mg PO DAILY budesonide-formoterol [Symbicort] 160-4.5 mcg/actuation Hfa Aerosol Inhaler 1 puff INHALATION Q12H Linzess 145 mcg Capsule 145 mcg PO QODAY cholecalciferol (vitamin D3) [Vitamin D3] 25 mcg (1,000 unit) Tablet,Chewable 25 mcg PO DAILY Primary Care Provider: Gabriel Alcantara Referrals: Gabriel Alcantara DO [Primary Care Provider] - Activity Restrictions/Additional Instructions: You have an ankle sprain. Rest, ice, and elevate your leg and take tylenol or ibuprofen as needed. Disposition Disposition: Home, Self Care
[2022-02-27] MEDS: Ibuprofen 400 MG Tablet 800 MG PO (14:29)
== END 2022-02-27 14:30 | disposition home or self-care (01) ==
PROVIDERS: Emergency Provider Emergency Medicine; PCP Student in an Organized Health Care Education/Training Program; Visit Provider Emergency Medicine
DX: S93.401A Sprain of unspecified ligament of right ankle, initial encounter (principal); J44.9 Chronic obstructive pulmonary disease, unspecified; E78.00 Pure hypercholesterolemia, unspecified; S13.4XXA Sprain of ligaments of cervical spine, initial encounter; X58.XXXA Exposure to other specified factors, initial encounter; Y93.9 Activity, unspecified; Y99.9 Unspecified external cause status; Y92.480 Sidewalk as the place of occurrence of the external cause; E07.9 Disorder of thyroid, unspecified; Z79.899 Other long term (current) drug therapy; Z79.890 Hormone replacement therapy; K21.9 Gastro-esophageal reflux disease without esophagitis; F17.210 Nicotine dependence, cigarettes, uncomplicated
CPT/HCPCS: 72050; 73610; 99283

== ENCOUNTER 2022-02-27 14:41 | Outpatient (CLI) | payer MEDICAID, SELFPAY ==
--- NOTE | 2022-02-27 14:50 | RAD_ITS ---
EXAM: XR CERVICAL SPINE, 4 OR 5 VIEWS CLINICAL INDICATION: CERVICAL STRAIN TECHNIQUE: Frontal, lateral and bilateral oblique views of the cervical spine. This report was created using [employer] report generation technology. COMPARISON: None. FINDINGS: VERTEBRAE: Unremarkable. Preserved vertebral body height. No acute fracture. No spondylolisthesis. Preservation of the normal cervical lordosis. No significant facet arthropathy. DISC SPACES: Unremarkable. Disc spaces are maintained. SOFT TISSUES: Unremarkable. No prevertebral soft tissue widening. LUNG APICES: Clear. RAD/Cerv Spine 4 or 5 Views IMPRESSION: No evidence of acute fracture or spondylolisthesis. Electronically Signed: Joseph Lyons MD at 15:31 EDT ,
== END 2022-02-27 23:59 | disposition home or self-care (01) ==
LOC: RAD 14:44
PROVIDERS: PCP Student in an Organized Health Care Education/Training Program; Referring Provider Chiropractor; Visit Provider Chiropractor
DX: S13.4XXA Sprain of ligaments of cervical spine, initial encounter (principal); J44.9 Chronic obstructive pulmonary disease, unspecified; S93.401A Sprain of unspecified ligament of right ankle, initial encounter; E78.00 Pure hypercholesterolemia, unspecified; E07.9 Disorder of thyroid, unspecified; X58.XXXA Exposure to other specified factors, initial encounter; K21.9 Gastro-esophageal reflux disease without esophagitis; F17.210 Nicotine dependence, cigarettes, uncomplicated; Z79.899 Other long term (current) drug therapy; Z79.890 Hormone replacement therapy; Y92.480 Sidewalk as the place of occurrence of the external cause
CPT/HCPCS: 72050

== ENCOUNTER 2022-11-28 20:08 | Emergency (ER) | payer MEDICAID, SELFPAY ==
[2022-11-28 20:08] VITALS: BP 142/83; PULSE 103; RESP 15; TEMP 36.3; O2SAT 97; BMI 29.5
[2022-11-28 20:21] VITALS: BP 110/70; PULSE 98; RESP 16; TEMP 36.2; O2SAT 99
[2022-11-28] MEDS: Ondansetron ODT 4 MG Tablet PO (20:39)
--- NOTE | 2022-11-28 20:50 | EDS_ITS ---
HPI History of Present Illness Chief Complaint: Nausea/Vomiting Informant: patient Onset/Context/Timing Onset: Today Narrative Narrative: Patient presents secondary to nausea and vomiting today. She states has been in retirement for the past 29 days. She had no cigarettes or marijuana while she was in retirement. This morning after getting out of retirement she smoked several cigarettes and smoked marijuana. She states now anytime she tries to eat she vomits. [facility] Medical History Alcohol use Anxiety Arthritis Asthma Back pain Bipolar disorder Bite from insect Complete edentulism, class III COPD (chronic obstructive pulmonary disease) Depression Diarrhea Easy bruising Frequent headaches Gastric reflux Hearing problem High cholesterol History of irregular heartbeat Injury of head and neck Leg cramps Loss of hearing Marijuana use Schizophrenia Shortness of breath on exertion Smoker Syncope Thyroid disease Wears glasses Home Medications levothyroxine 50 mcg tablet 125 mcg PO DAILY 07/01/16 [History Last Taken Unknown] atorvastatin 40 mg tablet 40 mg PO DAILY 02/10/17 [History Last Taken Unknown] venlafaxine 75 mg tablet 75 mg PO BID 02/10/17 [History Last Taken Unknown] ciclesonide 160 mcg/actuation aerosol inhaler (Alvesco) 1 puff inhalation DAILY 02/09/20 [History Last Taken Unknown] oxybutynin chloride 10 mg tablet,extended release 24 hr 10 mg PO DAILY 02/09/20 [History Last Taken Unknown] cyclobenzaprine 10 mg tablet 10 mg PO TID PRN Muscle Spasm #20 tabs 06/05/20 [Rx Last Taken Unknown] quetiapine 50 mg tablet (Seroquel) 50 mg PO QHS 06/05/20 [History Last Taken Unknown] budesonide-formoterol HFA 160 mcg-4.5 mcg/actuation aerosol inhaler (Symbicort) 1 puff inhalation Q12H 07/02/21 [History Last Taken Unknown] lansoprazole 15 mg capsule,delayed release (Prevacid 24Hr) 15 mg PO DAILY 07/02/21 [History Last Taken Unknown] cholecalciferol (vitamin D3) 25 mcg (1,000 unit) chewable tablet (Vitamin D3) 25 mcg PO DAILY 11/04/21 [History Last Taken Unknown] Allergy/AdvReac Type Severity Reaction Status Date / Time Penicillins Allergy Unknown Verified 11/28/22 20:12 adhesive tape AdvReac Rash Verified 11/28/22 20:12 bee venom protein (honey bee) AdvReac RED RAISED Verified 11/28/22 20:12 SKIN Family History Mother Anxiety and depression Brother AIDS (acquired immune deficiency syndrome) Surgical History History of bilateral breast reduction surgery Hx laparoscopic cholecystectomy Hx of breast biopsy Hx of colonoscopy Social History Smoking Status: Current every day smoker tobacco type: cigarettes alcohol intake: never substance use type: does not use additional social history: DOES TAKE ASPIRIN DOES TAKE IBUPROFEN ROS ROS ED Constitutional Constitutional ED: Denies chills or fever(s) Eyes Eyes: Denies change in vision or discharge from eye(s) ENT ENT ED: Denies discharge from eye(s), rhinorrhea or sore throat Cardiovascular Cardiovascular: Denies chest pain or palpitations Respiratory/Chest Respiratory/Chest: Denies cough or dyspnea Gastrointestinal Gastrointestinal: Reports nausea and vomiting; Denies abdominal pain or diarrhea Genitourinary Genitourinary ED: Denies dysuria Musculoskeletal Musculoskeletal: Denies back pain or extremity pain Integumentary Denies Abrasions or rash Neurologic Neurologic: Denies headache(s) or weakness Psychiatric Psychiatric: Denies anxiety or depression Allergic/Immunologic Allergic/Immunologic ED: Denies lip swelling or urticaria EXAM Physical Exam Const Vital Signs: 11/28/22 20:08 11/28/22 20:21 Temperature 97.4 F L 97.1 F L Temperature Source Temporal Temporal Pulse Rate 103 H 98 Respiratory Rate 15 16 Blood Pressure 142/83 H 110/70 Blood Pressure Mean 102 83 Pulse Ox 97 99 Oxygen Delivery Method Room Air Room Air Positive well nourished and well developed General Appearance ED: well developed HEENT Reports normocephalic and head/scalp atraumatic Eyes PERRL and EOMs intact bilaterally Neck supple Chest Wall inspection of chest normal and palpation of chest normal Resp normal respiratory effort and clear to auscultation bilaterally Cardio regular rate and regular rhythm GI normal to inspection, nondistended, normoactive bowel sounds Palpation: soft Extremity normal to inspection Neuro oriented x3 and no sensory deficits noted Sensorium / Orientation: alert Motor Exam: strength 5/5 throughout Psych mental status grossly normal Skin no rashes or lesions noted MDM MDM MDM Narrative Medical decision making narrative: Patient was given oral Zofran for nausea. Patient was seen ambulating to the restroom in the back nicole. She never returned to her room. Nursing staff states that she eloped from the emergency room. Discharge Plan Triage Chief Complaint: Nausea/Vomiting ED Provider: Randi Rebollar Dx/Rx/DC Orders Clinical Impression: Vomiting Prescriptions: No Action oxybutynin chloride 10 mg tablet extended release 24hr 10 mg PO DAILY Alvesco 160 mcg/actuation HFA aerosol inhaler 1 puff INHALATION DAILY levothyroxine 50 MCG tablet 125 mcg PO DAILY atorvastatin 40 MG tablet 40 mg PO DAILY venlafaxine 75 MG tablet 75 mg PO BID quetiapine [Seroquel] 50 MG tablet 50 mg PO QHS cyclobenzaprine 10 MG tablet 10 mg PO TID PRN (Reason: Muscle Spasm) Qty: 20 0RF lansoprazole [Prevacid 24Hr] 15 mg Capsule,Delayed Release(Dr/Ec) 15 mg PO DAILY budesonide-formoterol [Symbicort] 160-4.5 mcg/actuation Hfa Aerosol Inhaler 1 puff INHALATION Q12H cholecalciferol (vitamin D3) [Vitamin D3] 25 mcg (1,000 unit) Tablet,Chewable 25 mcg PO DAILY Primary Care Provider: Gabriel Alcantara Referrals: Gabriel Alcantara DO [Primary Care Provider] - Disposition Disposition: Elopement Discharge Date/Time: 11/28/22 21:53
== END 2022-11-28 21:53 | disposition left against medical advice (07) ==
PROVIDERS: Emergency Provider Emergency Medicine; PCP Student in an Organized Health Care Education/Training Program; Visit Provider Emergency Medicine
DX: R11.2 Nausea with vomiting, unspecified (principal); J44.9 Chronic obstructive pulmonary disease, unspecified; E78.00 Pure hypercholesterolemia, unspecified; F17.210 Nicotine dependence, cigarettes, uncomplicated
CPT/HCPCS: 99283

== ENCOUNTER → 2024-05-11 | Outpatient (CLI) | payer MEDICAID, SELFPAY ==
[2024-05-11 13:11] LABS: Amphetamine Urine VISTA NEGATIVE (<1000 ng/mL); Barbiturate Urine VISTA NEGATIVE (< 200 ng/mL); Benzodiazepine Urine VISTA NEGATIVE (< 200 ng/mL); Cocaine Urine VISTA NEGATIVE (< 300 ng/mL); Ecstacy Urine VISTA NEGATIVE (< 500 ng/mL); Methadone Urine VISTA NEGATIVE (< 300 ng/mL); PCP Urine VISTA NEGATIVE (< 25 ng/mL); THC Urine VISTA POSITIVE (< 50 ng/mL); Vista UDS pH Range 5
== END | disposition home or self-care (01) ==
LOC: LAB 11:12
PROVIDERS: PCP Student in an Organized Health Care Education/Training Program; Referring Provider Psychiatry & Neurology Psychiatry; Visit Provider Psychiatry & Neurology Psychiatry
DX: F19.10 Other psychoactive substance abuse, uncomplicated (principal)
CPT/HCPCS: 80307

== ENCOUNTER 2025-04-13 21:35 | Emergency (ER) | payer MEDICAID, SELFPAY ==
[2025-04-13 21:35] VITALS: BP 136/81; PULSE 93; RESP 18; TEMP 36.7; O2SAT 99; BMI 30.5
[2025-04-13 21:47] VITALS: BP 138/81; PULSE 93; RESP 18; TEMP 36.7; O2SAT 99
--- OUTSIDE RECORDS SUMMARY | 2025-04-13 22:07 | XMS RPT_ITS | CCD ---
Author Organization [facility] Care Team Providers Care Inseam Leveler Name Role Phone Gabriel Alcantara DO Primary Care Provider Dorothea Ibanez NP Primary Care Provider Gabriel Alcantara DO Primary Care Provider DOROTHEA MEJIA~[id number] GILBERT Attending Unavailable DOROTHEA MEJIA~[id number] GILBERT Primary Care Unavailable DOROTHEA MEJIA~[id number] GILBERT Attending Unavailable DOROTHEA MEJIA~[id number] GILBERT Primary Care Unavailable DOROTHEA MEJIA~[id number] GILBERT Primary Care Unavailable DOROTHEA MEJIA~[id number] GILBERT Attending Unavailable Gabriel Alcantara DO Primary Care Provider Astreika, Vera Referring Unavailable Zeb, Vera Attending Unavailable Gabriel Alcantara Primary Care Unavailable Delarosa CORPORATE CONSULTANT.Miranda NIETO Unavailable Felix CORPORATE CONSULTANT.Stefan NIETO Unavailable Delarosa CORPORATE CONSULTANT.Miranda NIETO Unavailable Taylor CORPORATE CONSULTANT.Georgie NIETO Unavailable SELF Referring Unavailable GABRIEL ALCANTARA Attending Unavailable GABRIEL ALCANTARA Primary Care Unavailable GABRIEL ALCANTARA Referring Unavailable QUINTON GABRIEL Mark Primary Care Unavailable FELIX, STEFAN Attending Unavailable GABRIEL ALCANTARA L Primary Care Unavailable QUINTON GABRIEL L Primary Care Unavailable FELIX, STEFAN Attending Unavailable SELF Referring Unavailable QUINTON GABRIEL L Primary Care Unavailable FELIX, STEFAN Attending Unavailable SELF Referring Unavailable QUINTON GABRIEL L Primary Care Unavailable STEFAN WASHINGTON Referring Unavailable GABRIEL ALCANTARA Primary Care Unavailable GABRIEL ALCANTARA Primary Care Unavailable MARY SUBRAMANIAN Attending Unavailable GABRIEL ALCANTARA Primary Care Unavailable ОЛЬГА WHITAKER Attending Unavailable GABRIEL ALCANTARA Primary Care Unavailable Allergies Allergy Classification Reported Allergen(s) Allergy Type Date of Onset Reaction(s) Facility (20 sources) Adhesive Tape; Translations: [ADHESIVE TAPE (ROSINS)] Propensity to adverse reactions 02-02-20 10 [facility] Work Phone: (20 sources) Niacin; Translations: [NIACIN (ANTIHYPERLIPIDEMIC) ] Drug Allergy 12-23-19 06 [facility] Work Phone: (20 sources) Penicillins; Translations: [PENICILLINS] Propensity to adverse reactions 11-09-19 08 [facility] Work Phone: (20 sources) Sulfamethoxazole / Trimethoprim; Translations: [SULFAMETHOXAZOLE-TR IMETHOPRIM] Drug Allergy 03-09-20 07 [facility] Work Phone: (20 sources) Bee Venom Protein (Honey Bee); Translations: [BEE VENOM PROTEIN (HONEY BEE)] Drug Allergy 04-23-20 20 Itching [facility] (6 sources) Adhesive Tape; Translations: [adhesive tape] Propensity to adverse reactions 12-20-19 22 [facility] (20 sources) Penicillins Propensity to adverse reactions 11-09-19 08 [facility] Work Phone: (1 source) Penicillins Allergy to substance 11-29-19 23 Unknown [facility] (1 source) Penicillins Drug allergy (disorder) 12-13-19 23 [facility] (1 source) bee venom protein (honey bee) Drug allergy (disorder) 12-13-19 23 [facility] Repository (12 sources) Penicillins Propensity to adverse reactions 11-09-19 08 [facility] Work Phone: Medications Current Medications Medication Drug Class(es) Dates Sig (Normalized) Sig (Original) acetylcysteine 600 mg oral capsule (20 sources) Antidote, Mucolytic, Antidote for Acetaminophen Overdose Start: 08-04-2023 take 1 capsule by mouth twice daily acetylcysteine (NAC) 600 mg capsule Take 1 capsule by mouth two times a day. 180 capsule 3 08/04/2023 Active Comment on above: Take 1 capsule by mo uth two times a day. albuterol 0.83 mg/ml inhalation solution (20 sources) beta2-Adrenergic Agonist Start: 12-07-2023 End: 10-28-2024 albuterol (PROVENTIL) 2.5 mg /3 mL (0.083 %) nebulizer solution Indications: COPD with chronic bronchitis (HCC) Use 3 mL via nebulizer every 4 hours as needed for wheezing/shortness of breath. Use over 5-15minutes. 90 mL 2 10/28/2024 Active Start: 12-11-2022 End: 03-23-2024 take 2.5 mg by inhalation every eight hours as needed albuterol (PROVENTIL) 2.5 mg /3 mL (0.083 %) nebulizer solution Use 3 mL via nebulizer three times daily as needed for wheezing/shortness of breath. OVER 5-15 MINUTES. FOR WHEEZING AND SHORTNESS OF BREATH. 60 mL 1 12/11/2022 03/23/2024 Discontinued Start: 08-04-2022 take 2 puff(s) by in halation twice daily as needed albuterol (VENTOLIN HFA) 90 mcg/Actuation inhaler Indications: Panlobular emphysema Take 2 Puffs by inhalation Twice a day as needed. 1 Each 2 08/04/2022 Active Start: 01-09-2022 End: 12-04-2023 take 2.5 mg by inhalation every four hours as needed albuterol (PROVENTIL) 2.5 mg /3 mL (0.083 %) nebulizer solution Use 3 mL via nebulizer every 4 hours as needed for wheezing/shortness of breath. Use over 5-15minutes. 30 Vial 5 01/09/2022 12/04/2023 Discontinued Start: 01-09-2022 End: 12-08-2022 take 2.5 mg by inhalation every eight hours as needed albuterol (PROVENTIL) 2.5 mg /3 mL (0.083 %) nebulizer solution Use 3 mL via nebulizer three times daily as needed for wheezing/shortness of breath. OVER 5-15 MINUTES. FOR WHEEZING AND SHORTNESS OF BREATH. 60 Vial 3 01/09/2022 12/08/2022 Discontinued Start: 03-04-2021 End: 03-23-2024 take 2 puff(s) by inhalation every four hours as needed for wheezing albuterol HFA (VENTOLIN HFA) 90 mcg/actuation inhaler INHALE 2 PUFFS EVERY FOUR HOURS NEEDED FOR WHEEZING/SHORTNESS OF BREATH 18 g 5 03/23/2024 Active Comment on above: INHALE 2 PUFFS EVERY FOUR HOURS NEEDED FOR WHEEZING/SHORTNESS OF BREATH Use 3 mL via nebuliz er three times daily as needed for wheezing/shortness of breath. OVER 5-15 MINUTES. FOR WHEEZING AND SHORTNESS OF BREATH. Use 3 mL via nebuliz er every 4 hours as needed for wheezing/shortness of breath. Use over 5-15minutes. atorvastatin 40 mg oral tablet (20 sources) HMG-CoA Reductase Inhibitor Start: take 1 tablet by mouth once daily at bedtime atorvastatin (LIPITOR) 40 mg tablet Take 1 tablet by mouth daily at bedtime. 30 tablet 11 02/22/2025 Active Start: 02-10-2017 End: 02-20-2025 take 1 tablet by mouth once daily at bedtime atorvastatin (LIPITOR) 40 mg tablet Take 1 tablet by mouth daily at bedtime. 30 tablet 03/23/2024 02/20/2025 Discontinued Comment on above: Take 1 tablet by beltran once daily. benzonatate 100 mg oral capsule (2 sources) Non-narcotic Antitussive Start: 10-24-19 End: 11-23-19 take 1 capsule by mouth every eight hours as needed for cough and cough benzonatate (TESSALON PERLES) 100 mg capsule Indications: Cough Take 1 capsule by mouth three times daily as needed for cough. 90 capsule 0 10/23/2021 11/22/2021 Active Comment on above: Take 1 capsule by mo [facility] three times daily as needed for cough. Budesonide / formoterol (20 sources) Corticosteroid, beta2-Adrenergic Agonist Start: 01-28-20 25 take 2 puff(s) by inhalation twice daily budesonide-formoter ol (SYMBICORT) 160-4.5 mcg/actuation inhaler Indications: COPD with chronic bronchitis (HCC) Inhale 2 puffs as instructed two times a day. 10.2 g 3 01/27/2025 Active Start: 09-07-2024 End: 01-27-2025 take 2 puff(s) by inhalation twice daily budesonide-formoterol (SYMBICORT) 160-4.5 mcg/actuation inhaler Indications: COPD with chronic bronchitis (HCC) Inhale 2 Puffs as instructed two times a day. 10.2 g 3 09/07/2024 01/27/2025 Discontinued Start: 09-07-2024 take 2 puff(s) by in halation twice daily budesonide-formoterol (SYMBICORT) 160-4.5 mcg/actuation inhaler Indications: COPD with chronic bronchitis (HCC) Inhale 2 Puffs as instructed two times a day. 10.2 g 3 09/07/2024 Active Start: 03-23-2024 End: 09-07-2024 take 2 puff(s) by inhalation twice daily budesonide-formoterol (SYMBICORT) 160-4.5 mcg/actuation inhaler Indications: COPD with chronic bronchitis (HCC) Inhale 2 Puffs as instructed two times a day. 10.2 g 3 03/23/2024 09/07/2024 Discontinued Start: 03-23-2024 take 2 puff(s) by in halation twice daily budesonide-formoterol (SYMBICORT) 160-4.5 mcg/actuation inhaler Indications: COPD with chronic bronchitis (HCC) Inhale 2 Puffs as instructed two times a day. 10.2 g 3 03/23/2024 Active Start: 02-17-2024 End: 03-23-2024 take 2 puff(s) by inhalation twice daily budesonide-formoterol (SYMBICORT) 160-4.5 mcg/actuation inhaler Indications: COPD with chronic bronchitis (HCC) Inhale 2 Puffs as instructed two times a day. 10.2 g 3 02/17/2024 03/23/2024 Discontinued Start: 02-17-2024 take 2 puff(s) by in halation twice daily budesonide-formoterol (SYMBICORT) 160-4.5 mcg/actuation inhaler Indications: COPD with chronic bronchitis (HCC) Inhale 2 Puffs as instructed two times a day. 10.2 g 3 02/17/2024 Active Start: 08-04-2022 take 2 puff(s) by in halation twice daily Budesonide-Formoterol (SYMBICORT 160-4.5 MCG) 160-4.5 mcg/Actuation inhaler Indications: Panlobular emphysema Take 2 Puffs by inhalation Twice a day. 1 Each 3 08/04/2022 Active Start: 05-21-2022 End: 02-17-2024 take 2 puff(s) by inhalation twice daily budesonide-formoterol (SYMBICORT) 160-4.5 mcg/actuation inhaler Indications: COPD with chronic bronchitis (HCC) Inhale 2 Puffs as instructed twice daily. 10.2 g 3 05/21/2022 02/17/2024 Discontinued Start: 05-21-2022 take 2 puff(s) by in halation twice daily budesonide-formoterol (SYMBICORT) 160-4.5 mcg/actuation inhaler Indications: COPD with chronic bronchitis Inhale 2 Puffs as instructed twice daily. 10.2 g 3 05/21/2022 Active Start: 05-21-2022 take 2 puff(s) by in halation twice daily budesonide-formoterol (SYMBICORT) 160-4.5 mcg/actuation inhaler Indications: COPD with chronic bronchitis (HCC) Inhale 2 Puffs as instructed twice daily. 10.2 g 3 05/21/2022 Active Start: 01-01-2022 End: 05-21-2022 take 2 puff(s) by inhalation twice daily budesonide-formoterol (SYMBICORT) 160-4.5 mcg/actuation inhaler Indications: COPD with chronic bronchitis (HCC) Inhale 2 Puffs as instructed twice daily. 10.2 g 3 01/01/2022 05/21/2022 Discontinued Start: 01-01-2022 take 2 puff(s) by in halation twice daily budesonide-formoterol (SYMBICORT) 160-4.5 mcg/actuation inhaler Indications: COPD with chronic bronchitis (HCC) Inhale 2 Puffs as instructed twice daily. 10.2 g 3 01/01/2022 Active Start: 07-02-2021 take 1 puff(s) by in halation every twelve hours Budesonide-Formoterol (Symbicort) 160-4.5 mcg/actuation Hfa Aerosol Inhaler Active 1 PUFF INHALATION Q12H July 02, 2021 10:31am Start: 07-02-2021 take 1 puff(s) by in halation every twelve hours Budesonide-Formoterol (Symbicort) 160-4.5 mcg/actuation Hfa Aerosol Inhaler Active 1 PUFF INHALATION Q12H July 02, 2021 1:00am Start: 03-04-2021 End: 12-31-2021 take 2 puff(s) by inhalation twice daily budesonide-formoterol (SYMBICORT) 160-4.5 mcg/actuation inhaler Indications: COPD with chronic bronchitis (HCC) Inhale 2 Puffs as instructed twice daily. 10.2 g 3 03/04/2021 12/31/2021 Discontinued Start: 03-04-2021 take 2 puff(s) by in halation twice daily budesonide-formoterol (SYMBICORT) 160-4.5 mcg/actuation inhaler Indications: COPD with chronic bronchitis (HCC) Inhale 2 Puffs as instructed twice daily. 10.2 g 3 03/04/2021 Active Comment on above: Inhale 2 Puffs as in structed twice daily. cholecalciferol 0.125 mg oral capsule (20 sources) Vitamin D Start: 11-05-19 take 1 tablet by mouth once daily Cholecalciferol (Vitamin D3) (Vitamin D3) 25 mcg (1,000 unit) Tablet,Chewable Active 25 MCG PO DAILY November 04, 2021 12:00am Start: 09-25-2021 End: 05-23-2025 take 1 capsule by mouth once daily Cholecalciferol, Vitamin D3, 125 mcg (5,000 unit) cap Take 1 capsule by mouth once daily. 30 capsule 2 02/22/2025 05/23/2025 Active Comment on above: Take 1 capsule by [facility] once daily. 60 actuat ciclesonide 0.16 mg/actuat metered dose inhaler (5 sources) Start: 2019 take 1 puff(s) by inhalation once daily Ciclesonide (Alvesco) 160 mcg/actuation HFA aerosol inhaler Active 1 PUFF INHALATION DAILY February 09, 2020 12:00am ciprofloxacin 500 mg oral tablet (1 source) Quinolone Antimicrobial Start: 2024 End: 2024 take 1 tablet by mouth twice daily ciprofloxacin HCl (CIPRO) 500 mg tablet Indications: Burning with urination , Pelvic pain , Lower abdominal pain , Microscopic hematuria , Proteinuria, unspecified type , Acute cystitis with hematuria Take 1 tablet by mouth two times a day for 7 days. 14 tablet 04/06/2025 04/13/2025 Active cyclobenzaprine hydrochloride 10 mg oral tablet (5 sources) Muscle Relaxant Start: 2019 take 10 mg by mouth three times daily Cyclobenzaprine Active 10 MG PO THREE TIMES A DAY June 05, 2020 12:00am estradiol 0.1 mg/ml vaginal cream (5 sources) Estrogen Start: 2024 estradiol (ESTRACE) 0.01 % (0.1 mg/gram) vaginal cream Use 1 g vaginally three times a week. 42.5 g 2 03/07/2025 Active hydrocortisone 0.025 mg/mg topical ointment (7 sources) Corticosteroid Start: 2024 hydrocortisone 2.5 % ointment Indications: Prurigo nodularis Apply to affected areas on face twice daily M-F. Take weekends off. 28.35 g 2 01/12/2025 Active lansoprazole 15 mg delayed release oral capsule (20 sources) Proton Pump Inhibitor Start: 2024 take 2 capsules by mouth once daily lansoprazole (PREVACID) 15 mg capsule Take 2 capsules by mouth once daily. 60 capsule 11 02/22/2025 Active Start: 07-02-2021 take 1 capsule by mo uth once daily Lansoprazole (Prevacid 24hr) 15 mg Capsule,Delayed Release(Dr/Ec) Active 15 MG PO DAILY July 02, 2021 1:00am Start: 03-04-2021 End: 02-20-2025 take 2 capsules by mouth once daily lansoprazole (PREVACID) 15 mg capsule Take 2 capsules by mouth once daily. 60 capsule 03/23/2024 02/20/2025 Discontinued Comment on above: Take 2 capsules by m outh once daily. levothyroxine sodium 0.125 mg oral tablet (20 sources) l-Thyroxine Start: 12-12-19 End: 09-13-19 take 1 tablet by mouth every week for thyroid dysfunction, then take 0.5 tablet by mouth every week for thyroid dysfunction levothyroxine (SYNTHROID) 125 mcg tablet Indications: Well adult exam , Other specified hypothyroidism Take 1 tablet by mouth 6 days per week and a half tablet by mouth 1 day per week. Take on empty stomach. For Thyroid 30 tablet 5 09/13/2024 Active Start: 08-04-2022 take 1 tablet by beltran th once daily levothyroxine (SYNTHROID) 125 mcg tablet Indications: Other specified hypothyroidism Take 1 Tablet by mouth Once Daily. 30 Tablet 3 08/04/2022 Active Start: 09-23-2021 End: 12-08-2022 take 1 tablet by mouth every week for thyroid dysfunction, then take 0.5 tablet by mouth every week for thyroid dysfunction levothyroxine (SYNTHROID) 125 mcg tablet Indications: Other specified hypothyroidism , Well adult exam Take 1 tablet by mouth 6 days per week and a half tablet by mouth 1 day per week. Take on empty stomach. For Thyroid 30 tablet 3 03/05/2022 06/11/2022 Discontinued Start: 07-01-2016 take 125 ug by mouth once mary y Levothyroxine Active 125 MCG PO DAILY July 01, 2016 1:00am Comment on above: Take 1 tablet by beltran th 6 days per week and a half tablet by mouth 1 day per week. Take on empty stomach. For Thyroid methylPREDNISolone (1 source) Corticosteroid Start: 2022 End: 2022 methylPREDNISolone (MEDROL, ELISEO,) 4 mg Dose-Pack Indications: Subacute cough , SOB (shortness of breath) Follow dosing instructions, take with food. 21 tablet 0 02/17/2023 02/23/2023 Active Comment on above: Follow dosing instru ctions, take with food. metroNIDAZOLE 500 mg oral tablet (10 sources) Nitroimidazole Antimicrobial Start: 2022 End: 2022 take 1 tablet by mouth twice daily metroNIDAZOLE (FLAGYL) 500 mg tablet Indications: Bacterial vaginitis Take 1 tablet by mouth twice daily for 7 days. 14 tablet 0 12/08/2022 12/15/2022 Active Start: 11-13-2021 End: 11-20-2021 take 1 tablet by mouth every twelve hours metroNIDAZOLE (FLAGYL) 500 mg tablet Indications: BV (bacterial vaginosis) , Trichomonas infection Take 1 tablet by mouth every 12 hours for 7 days. 14 tablet 0 11/13/2021 11/20/2021 Active Start: 11-12-2021 End: 11-13-2021 take 1 tablet by mouth twice daily metroNIDAZOLE (FLAGYL) 500 mg tablet Take 1 tablet by mouth twice daily for 7 days. 14 tablet 0 11/12/2021 11/13/2021 Discontinued Start: 12-23-2019 End: 02-09-2020 Metronidazole Discontinued 7 0 APPLIC TOPICAL DAILY 1 December 23, 2019 12:00am February 09, 2020 10:52am 1 applicatorful daily for 5 days Comment on above: Take 1 tablet by beltran th every 12 hours for 7 days. Take 1 tablet by beltran th twice daily for 7 days. mupirocin 0.02 mg/mg topical ointment (4 sources) RNA Synthetase Inhibitor Antibacterial Start: 4 End: 4 mupirocin (BACTROBAN) 2 % ointment Indications: Abrasion, elbow w/o infection Apply 1 application to affected area once daily for 5 days. 22 g 04/08/2024 04/13/2024 Active naproxen 500 mg oral tablet (2 sources) Nonsteroidal Anti-inflammatory Drug Start: 3 End: 3 take 1 tablet by mouth twice daily as needed for pain naproxen (NAPROSYN) 500 mg tablet Indications: Left wrist pain Take 1 tablet by mouth twice daily as needed (for pain/inflammation). Take with food. 30 tablet 0 04/22/2023 05/22/2023 Active Comment on above: Take 1 tablet by beltran th twice daily as needed (for pain/inflammation). Take with food. Nebulizer and Compressor For Neb (20 sources) Start: 5 Nebulizer and Compressor For Neb Indications: COPD with chronic bronchitis (HCC) , Acute cough 1 Each every 4 hours as needed. 1 Each 11/16/2024 Active Start: 09-13-2024 End: 11-16-2024 Nebulizer and Compressor For Neb Indications: COPD with chronic bronchitis (HCC) , Acute cough 1 Each every 4 hours as needed. 1 Each 09/13/2024 11/16/2024 Discontinued Start: 09-13-2024 Nebulizer and Compressor For Neb Indications: COPD with chronic bronchitis (HCC) , Acute cough 1 Each every 4 hours as needed. 1 Each 09/13/2024 Active Start: 02-04-2023 End: 09-13-2024 Nebulizer and Compressor For Neb Indications: Acute cough , COPD with chronic bronchitis (HCC) 1 Each every 4 hours as needed. 1 Each 02/04/2023 09/13/2024 Discontinued Start: 02-04-2023 Nebulizer and Compressor For Neb Indications: Acute cough , COPD with chronic bronchitis (HCC) 1 Each every 4 hours as needed. 1 Each 02/04/2023 Active Start: 02-04-2023 Nebulizer and Compressor For Neb Indications: Acute cough , COPD with chronic bronchitis 1 Each every 4 hours as needed. 1 Each 0 02/04/2023 Active Start: 02-04-2023 Nebulizer and Compressor For Neb Indications: Acute cough , COPD with chronic bronchitis (HCC) 1 Each every 4 hours as needed. 1 Each 0 02/04/2023 Active Comment on above: 1 Each every 4 hours as needed. nystatin [id number] unt/ml oral suspension (5 sources) Polyene Antifungal Start: 02-14-20 End: 02-28-20 take 5 mL by mouth four times daily, then take 5 mL by mouth four times daily nystatin (MYCOSTATIN) 100,000 unit/mL suspension Take 5 mL by mouth four times daily for 14 days. SWISH AND SWALLOW 5 mL 4 TIMES PER DAY. 280 mL 0 02/13/2022 02/27/2022 Active Comment on above: Take 5 mL by mouth f our times daily for 14 days. SWISH AND SWALLOW 5 mL 4 TIMES PER DAY. 24 hr oxybutynin chloride 10 mg extended release oral tablet (20 sources) Cholinergic Muscarinic Antagonist Start: 02-09-20 End: 03-21-20 take 1 tablet by mouth once daily oxybutynin ER (DITROPAN XL) 10 mg 24 hr tablet Take 1 tablet by mouth once daily. 30 tablet 11 03/21/2025 Active Comment on above: TAKE 1 TABLET BY BELTRAN TH DAILY Take 1 tablet by beltran th once daily. polyethylene glycol 3350 [id number] mg / potassium chloride 2970 mg / sodium bicarbonate 6740 mg / sodium chloride 5860 mg / sodium sulfate 74851 mg powder for oral solution (1 source) Osmotic Laxative Start: 03-07-20 End: 03-07-20 peg 3350-Electrolytes (GOLYTELY) 236-22.74-6.74 -5.86 gram suspension Indications: Screening for colon cancer Take 4,000 mL by mouth one time only for 1 dose. Refer to printed prep instructions from your provider. 4000 mL 03/07/2025 03/07/2025 Active QUEtiapine 50 mg oral tablet (20 sources) Atypical Antipsychotic Start: 06-05-20 take 1 tablet by mouth at bedtime Quetiapine (Seroquel) 50 MG tablet Active 50 MG PO AT BEDTIME June 05, 2020 12:00am Comment on above: Take 50 mg by mouth twice daily. 10 actuat tiotropium 0.0025 mg/actuat inhalation spray (20 sources) Anticholinergic Start: 08-10-20 End: 11-05-19 take 2 puff(s) by mouth once daily tiotropium bromide (SPIRIVA RESPIMAT) 2.5 mcg/actuation inhaler Indications: COPD with chronic bronchitis (HCC) INHALE TWO PUFFS BY MOUTH EVERY DAY 4 g 3 11/04/2024 Active Start: 12-11-2022 End: 03-25-2023 take 2 puff(s) by mouth once daily tiotropium bromide (SPIRIVA RESPIMAT) 2.5 mcg/actuation inhaler Indications: COPD with chronic bronchitis (HCC) INHALE TWO PUFFS BY MOUTH EVERY DAY 4 g 3 12/11/2022 03/25/2023 Discontinued Start: 08-04-2022 take 2 puff(s) by in halation once daily tiotropium bromide (SPIRIVA RESPIMAT) 2.5 mcg/actuation inhaler Indications: Panlobular emphysema Take 2 Puffs by inhalation Once Daily. 1 Each 2 08/04/2022 Active Start: 02-27-2022 End: 12-08-2022 take 2 puff(s) by mouth once daily SPIRIVA RESPIMAT 2.5 mcg/actuation inhaler Indications: COPD with chronic bronchitis (HCC) INHALE TWO PUFFS BY MOUTH EVERY DAY 4 g 3 02/27/2022 06/16/2022 Discontinued Start: 11-08-2021 End: 02-27-2022 take 2 puff(s) by inhalation once daily tiotropium bromide (SPIRIVA RESPIMAT) 2.5 mcg/actuation inhaler Indications: COPD with chronic bronchitis (HCC) Inhale 2 Puffs as instructed once daily. 4 g 3 11/08/2021 02/27/2022 Discontinued Start: 10-23-2018 End: 02-09-2020 take 1 puff(s) by inhalation once daily Tiotropium [place] Discontinued 1 PUFF INHALATION DAILY October 23, 2018 1:00am February 09, 2020 10:58am Comment on above: Inhale 2 Puffs as in structed once daily. INHALE TWO PUFFS BY MOUTH EVERY DAY triamcinolone acetonide 1 mg/ml topical cream (20 sources) Corticosteroid Start: 01-12-2025 triamcinolone acetonide (KENALOG) 0.1 % cream Indications: Prurigo nodularis Apply to affected area on extremities twice daily Thursday-Thursday. Take weekends off. Do not use on face, armpits, neck, or groin. 80 g 3 01/12/2025 Active Start: 08-04-2023 End: 09-13-2024 triamcinolone acetonide (NAHOMI ALOG) 0.1 % cream Apply to affected areas twice daily up to 5 days per week, as needed for itching. Do not apply to face, armpits or groin. 453.6 g 1 08/04/2023 09/13/2024 Discontinued Comment on above: Apply to affected ar eas twice daily up to 5 days per week, as needed for itching. Do not apply to face, armpits or groin. Completed/Discontinued Medications Medication Drug Class(es) Dates Sig (Normalized) Sig (Original) acetaminophen 325 mg / HYDROcodone bitartrate 5 mg oral tablet (5 sources) Opioid Agonist Start: 10-23-2018 End: 10-25-2018 take 1 tablet by mouth every four hours as needed Hydrocodone-Acetami nophen Discontinued 1 TABLET PO EVERY 4 HOURS NEEDED 14 2 October 23, 2018 1:00am October 25, 2018 1:11am Arm Brace (WRIST BRACE LARGE) misc (20 sources) Start: 04-22-2023 End: 09-13-2024 Arm Brace (WRIST BRACE LARGE) [facility] [place] Indications: Left wrist pain 1 Each once daily. At bedtime 1 Each 04/22/2023 09/13/2024 Discontinued Start: 04-22-[address] Brace (WRI ST BRACE LARGE) misc Indications: Left wrist pain 1 Each once daily. At bedtime 1 Each 04/22/2023 Active Start: 04-22-[address]23 [address] Brace (WRI [facility] BRACE LARGE) misc Indications: Left wrist pain 1 Each once daily. At bedtime 1 Each 0 04/22/2023 Active Comment on above: 1 Each once daily. A t bedtime azithromycin 500 mg oral tablet (2 sources) Macrolide Antimicrobial Start: 11-12-19 End: 11-12-19 take 2 tablets by mouth once azithromycin (ZITHROMAX) 500 mg tablet Take 2 tablets by mouth one time only for 1 dose. 2 tablet 0 11/11/2021 11/11/2021 Discontinued (Duplicate Entry) Start: 11-11-2021 End: 11-11-2021 azithromycin 1,000 mg tab(s) (ZITHROMAX) Comment on above: Take 2 tablets by mo uth one time only for 1 dose. betamethasone 0.5 mg/ml / clotrimazole 10 mg/ml topical cream (15 sources) Azole Antifungal, Corticosteroid Start: 12-31-2022 End: 08-04-2023 clotrimazole-betamethas one (LOTRISONE) cream Indications: Lesion, skin Apply to affected area twice daily. 15 g 1 12/31/2022 08/04/2023 Discontinued Comment on above: Apply to affected ar ea twice daily. cefTRIAXone 500 mg injection (1 source) Cephalosporin Antibacterial Start: 11-11-2021 End: 11-11-2021 cefTRIAXone 500 mg intramuscular injection (ROCEPHIN) COMPOUNDED PRESCRIPTION (20 sources) Start: 10-18-2018 End: 09-13-2024 COMPOUNDED PRESCRIPTION Nebulizer Machine Dx: Asthma 493 1 Device 10/18/2018 09/13/2024 Discontinued Start: 10-18-2018 COMPOUNDED PRE SCRIPTION Nebulizer Machine Dx: Asthma 493 1 Device 10/18/2018 Active Start: 10-18-2018 COMPOUNDED PRE SCRIPTION Nebulizer Machine Dx: Asthma 493 1 Device 0 10/18/2018 Active Comment on above: Nebulizer Machine Dx : Asthma 493 doxycycline hyclate 100 mg oral tablet (2 sources) Tetracycline-class Drug Start: 2022 End: 2022 take 1 tablet by mouth twice daily doxycycline (VIBRA-TABS) 100 mg tablet Indications: Subacute cough , SOB (shortness of breath) Take 1 tablet by mouth twice daily for 10 days. 20 tablet 0 02/17/2023 02/27/2023 Comment on above: Take 1 tablet by beltran th twice daily for 10 days. 2 ml dupilumab 150 mg/ml auto-injector (20 sources) Interleukin-4 Receptor alpha Antagonist Start: 2022 End: 2024 inject 300 mg by subcutaneous injection every other week dupilumab (DUPIXENT PEN) 300 mg/2 mL pen injection Indications: Prurigo nodularis Inject 300mg (1 pen) subcutaneously every 2 weeks. 4 mL 5 01/12/2025 04/06/2025 Discontinued Comment on above: Inject 600 mg (2 pen s) for first dose (day 1), then 300 mg (1 pen) every 2 weeks (on day 15 and every 2 weeks thereafter) fluticasone propionate 0.05 mg/actuat metered dose nasal spray (20 sources) Corticosteroid Start: 2020 End: 2024 take 2 spray(s) by mouth once daily fluticasone (FLONASE) 50 mcg/actuation nasal spray Indications: Non-recurrent acute serous otitis media of both ears Use 2 Sprays in each nostril once daily. Rinse mouth after use. 1 Bottle 11 03/04/2021 09/13/2024 Discontinued Comment on above: Use 2 Sprays in each nostril once daily. Rinse mouth after use. hydrOXYzine hydrochloride 25 mg oral tablet (20 sources) Antihistamine Start: 2019 End: 2024 take 1 tablet by mouth every six hours as needed hydrOXYzine HCl (ATARAX) 25 mg tablet Indications: Dermatitis Take 1 tablet by mouth every 6 hours as needed for Itching/Rash. 60 tablet 2 05/28/2020 09/13/2024 Discontinued Comment on above: Take 1 tablet by beltran th every 6 hours as needed for Itching/Rash. ibuprofen 800 mg oral tablet (20 sources) Nonsteroidal Anti-inflammatory Drug Start: 2022 End: 2024 take 1 tablet by mouth every eight hours as needed ibuprofen (MOTRIN) 800 mg tablet Take 1 tablet by mouth every 8 hours as needed for pain. 30 tablet 5 12/11/2022 11/04/2024 Discontinued (Course of therapy completed) Start: 03-04-2021 End: 12-08-2022 take 1 tablet by mouth every eight hours as needed ibuprofen (MOTRIN) 800 mg tablet Take 1 tablet by mouth every 8 hours as needed (mild to moderate pain). 30 tablet 3 01/02/2022 04/23/2022 Discontinued Comment on above: Take 1 tablet by beltran th every 8 hours as needed (mild to moderate pain). TAKE ONE TABLET BY M OUTH EVERY 8 HOURS NEEDED FOR mild TO moderate pain Take 1 tablet by beltran th every 8 hours as needed for pain. iv contrast (will be provided with radiology test) (3 sources) Start: 12-04-2021 End: 12-05-2021 iv contrast (will be provided with radiology test) Indications: Fatty (change of) liver, not elsewhere classified , Abnormal liver ultrasound , Elevated LFTs MRI Liver Inject, intravenously, once for 1 dose. No IV access, insert saline lock prior to the beginning of sedation, infusion, injection of imaging exam. Discontinue saline lock post exam. If Pt. has a central line or IVAD, may access for administration according to line specific nursing protocol. Once exam is complete flush line and de-access according to line specific nursing protocol in the MR contrast administration guidelines link. 1 Each 0 12/04/2021 12/05/2021 Start: 12-04-2021 End: 12-05-2021 iv contrast (will be provide d with radiology test) Indications: Fatty (change of) liver, not elsewhere classified , Abnormal liver ultrasound , Elevated LFTs MRI Liver Inject, intravenously, once for 1 dose. No IV access, insert saline lock prior to the beginning of sedation, infusion, injection of imaging exam. Discontinue saline lock post exam. If Pt. has a central line or IVAD, may access for administration according to line specific nursing protocol. Once exam is complete flush line and de-access according to line specific nursing protocol in the MR contrast administration guidelines link. 1 Each 0 12/04/2021 12/05/2021 Active Comment on above: MRI Liver Inject, in travenously, once for 1 dose. No IV access, insert saline lock prior to the beginning of sedation, infusion, injection of imaging exam. Discontinue saline lock post exam. If Pt. has a central line or IVAD, may access for administration according to line specific nursing protocol. Once exam is complete flush line and de-access according to line specific nursing protocol in the MR contrast administration guidelines link. L. acidophilus-L. rhamnosus 15 billion cell cap (20 sources) Start: End: take 1 capsule by mouth once daily L. acidophilus-L. rhamnosus 15 billion cell cap Take 1 capsule by mouth once daily. Keep in the refrigerator. 30 capsule 11 05/13/2021 11/04/2024 Discontinued (Discontinued by Patient) Start: 05-13-2021 take 1 capsule by mo ut once daily L. acidophilus-L. rhamnosus 15 billion cell cap Take 1 capsule by mouth once daily. Keep in the refrigerator. 30 capsule 11 05/13/2021 Active Comment on above: Take 1 capsule by mo ut once daily. Keep in the refrigerator. linaclotide 0.145 mg oral capsule (20 sources) Guanylate Cyclase-C Agonist Start: 09-17-19 22 End: 04-21-20 23 take 1 capsule by mouth once daily, then take 6 capsules by mouth in the morning linaclotide (LINZESS) 145 mcg capsule Indications: Other constipation Take 1 capsule by mouth DAILY (6 AM). 30 capsule 5 09/17/2021 04/21/2023 Discontinued Start: 07-02-2021 take 1 capsule by mo uth every other day Linaclotide (Linzess) 145 mcg Capsule Active 145 MCG PO EVERY OTHER DAY July 02, 2021 1:00am Comment on above: Take 1 capsule by mo ut DAILY (6 AM). miSOPROStol 0.2 mg oral tablet (4 sources) Prostaglandin E1 Analog Start: 05-23-20 21 miSOPROStol (CYTOTEC) 200 mcg tablet Indications: PMB (postmenopausal bleeding) Insert 2 tablets vaginally night prior to procedure and 2 tablets morning of procedure. Each dose should be in vagina for 6-8 hours. 4 tablet 0 06/17/2021 Active Comment on above: Insert 2 tablets vag inally night prior to procedure and 2 tablets morning of procedure. Each dose should be in vagina for 6-8 hours. nitrofurantoin, macrocrystals 25 mg / nitrofurantoin, monohydrate 75 mg oral capsule (8 sources) Nitrofuran Antibacterial Start: 11-05-19 End: 11-10-19 take 1 capsule by mouth twice daily nitrofurantoin monohydrate and macrocrystal (MACROBID) 100 mg capsule Indications: Urinary frequency Take 1 capsule by mouth two times a day for 5 days. 10 capsule 11/04/2024 11/09/2024 Start: 04-08-2024 End: 04-15-2024 take 1 capsule by mouth twice daily at mealtime nitrofurantoin monohydrate and macrocrystal (MACROBID) 100 mg capsule Indications: Dysuria Take 1 capsule by mouth two times a day with meals for 7 days. 14 capsule 04/08/2024 04/15/2024 Active Start: 10-28-2023 End: 11-04-2023 take 1 capsule by mouth twice daily at mealtime nitrofurantoin monohydrate and macrocrystal (MACROBID) 100 mg capsule Indications: UTI symptoms Take 1 capsule by mouth two times a day with meals for 7 days. 14 capsule 0 10/28/2023 11/04/2023 Active Start: 07-20-2023 End: 07-27-2023 take 1 capsule by mouth twice daily at mealtime nitrofurantoin monohydrate and macrocrystal (MACROBID) 100 mg capsule Indications: Acute cystitis with hematuria Take 1 capsule by mouth two times a day with meals for 7 days. 14 capsule 0 07/20/2023 07/27/2023 Active Comment on above: Take 1 capsule by nh ut two times a day with meals for 7 days. permethrin 50 mg/ml topical cream (5 sources) Pyrethroid Start: End: Permethrin Discontinued 60 GM TP DAILY October 10, 2019 1:00am February 09, 2020 10:55am apply to entire body over night and repeat in 24 hrs phenazopyridine hydrochloride 200 mg oral tablet (20 sources) Start: End: take 1 tablet by mouth three times daily as needed phenazopyridine (PYRIDIUM) 200 mg tablet Indications: UTI symptoms Take 1 tablet by mouth three times a day as needed. 21 tablet 10/28/2023 09/13/2024 Discontinued Comment on above: Take 1 tablet by beltran three times a day as needed. polyethylene glycol 3350 97126 mg powder for oral solution (20 sources) Osmotic Laxative Start: End: take 1 dose by mouth once daily as needed polyethylene glycol 3350 (MIRALAX) 17 gram/dose powder Indications: Other constipation Take 17 g by mouth as needed. Take 1 dose daily PO 595 g 1 03/04/2021 09/13/2024 Discontinued Comment on above: Take 17 g by mouth a s needed. Take 1 dose daily PO predniSONE 20 mg oral tablet (5 sources) Start: End: take 20 mg by mouth twice daily at mealtime Prednisone Discontinued 20 MG PO TWICE A DAY October 10, 2019 1:00am February 09, 2020 10:56am With food 24 hr venlafaxine 75 mg extended release oral capsule (20 sources) Serotonin and Norepinephrine Reuptake Inhibitor Start: End: take 1 capsule by mouth twice daily venlafaxine ER (EFFEXOR XR) 75 mg 24 hr capsule Take 1 capsule by mouth twice daily. 60 capsule 3 03/04/2021 09/13/2024 Discontinued Start: 02-09-2020 End: 02-09-2020 take 75 mg by mouth once daily Venlafaxine Discontinue d 75 MG PO DAILY February 09, 2020 12:00am February 09, 2020 11:08am Start: 02-10-2017 take 75 mg by mouth twice daily Venlafaxine Active 75 MG PO TWICE A DAY February 10, 2017 12:00am Comment on above: Take 1 capsule by mo [facility] twice daily. Problems Active Problems Problem Classification Problem Date Documented Da te Episodic/Chronic Abdominal pain (20 sources) Upper abdominal pain; Translations: [Right upper quadrant pain] Onset: 4 Resolved: 7 Episodic Allergic reactions (5 sources) Eruption due to drug; Translations: [Generalized skin eruption due to drugs and medicaments taken internally] 02-11-2017 Episodic Asthma (20 sources) Unspecified asthma, uncomplicated; Translations: [Asthma, unspecified type, unspecified] Onset: 6 Resolved: 3 01-22-2006 Chronic Chronic obstructive pulmonary disease and bronchiectasis (20 sources) Emphysematous bronchitis; Translations: [Chronic obstructive pulmonary disease, unspecified] Onset: 2 Chronic Chronic obstructive pulmonary disease and bronchiectasis (1 source) Chronic obstructive pulmonary disease and bronchiectasis; Translations: [COPD with chronic bronchitis (HCC)] Onset: 3 Conditions associated with dizziness or vertigo (5 sources) Dizziness; Translations: [Dizziness and giddiness] 12-27-2021 Episodic Disorders of lipid metabolism (20 sources) Dyslipidemia; Translations: [Hyperlipidemia, unspecified] Onset: 5 04-25-2015 Chronic Esophageal disorders (1 source) Gastroesophageal reflux disease; Translations: [Gastro-esophageal reflux disease without esophagitis] Chronic Genitourinary symptoms and ill-defined conditions (20 sources) Genuine stress incontinence; Translations: [Stress incontinence (female) (male)] Onset: 2 Chronic Genitourinary symptoms and ill-defined conditions (20 sources) Urinary symptoms ; Translations: [Unspecified symptoms and signs involving the genitourinary system] Onset: 7 03-12-2017 Episodic Inflammatory diseases of female pelvic organs (2 sources) Bacterial vaginosis; Translations: [Acute vaginitis] Episodic Menopausal disorders (5 sources) Postmenopausal bleeding; Translations: [Postmenopausal bleeding] 07-04-2021 Chronic Miscellaneous mental health disorders (1 source) Primary insomnia; Translations: [Primary insomnia] Onset: 2 08-04-2022 Chronic Mood disorders (20 sources) Dysthymia; Translations: [Dysthymic disorder] Onset: 2 05-20-2019 Chronic Mycoses (2 sources) Candidiasis of mouth; Translations: [Candidal stomatitis] Episodic Neoplasms of unspecified nature or uncertain behavior (5 sources) Neoplasm of skin of breast; Translations: [Neoplasm of unspecified behavior of bone, soft tissue, and skin] 06-05-2020 Episodic Nonspecific chest pain (5 sources) Chest wall pain; Translations: [Other chest pain] 11-12-2021 Episodic Nutritional deficiencies (20 sources) Vitamin D deficiency; Translations: [Vitamin D deficiency, unspecified] Onset: 2 11-27-2021 Chronic Osteoarthritis (1 source) Inflammation of joint of foot; Translations: [Primary osteoarthritis, unspecified ankle and foot] 04-21-2023 Chronic Other connective tissue disease (5 sources) Muscle spasm of cervical muscle of neck; Translations: [Other muscle spasm] 06-06-2020 Episodic Other connective tissue disease (2 sources) Pain in left foot; Translations: [Pain in left foot] Episodic Other connective tissue disease (1 source) Pain in right foot; Translations: [Pain in right foot] Episodic Other connective tissue disease (1 source) Dysfunction of posterior tibial tendon; Translations: [Posterior tibial tendinitis, unspecified leg] 04-21-2023 Episodic Other female genital disorders (6 sources) Pain in female genitalia on intercourse; Translations: [Unspecified dyspareunia] Onset: 5 03-07-2025 Chronic Other female genital disorders (1 source) Pruritus of vagina; Translations: [Other specified noninflammatory disorders of vagina] Episodic Other female genital disorders (1 source) Vaginal discharge; Translations: [Other specified noninflammatory disorders of vagina] Episodic Other female genital disorders (5 sources) Labial cyst; Translations: [Vulvar cyst] 12-24-2019 Episodic Other female genital disorders (1 source) Disorder of female genital organs; Translations: [Unspecified condition associated with female genital organs and menstrual cycle] Episodic Other gastrointestinal disorders (1 source) Dysphagia; Translations: [Dysphagia, unspecified] Episodic Other inflammatory condition of skin (16 sources) Prurigo nodularis; Translations: [Prurigo nodularis] 08-04-2023 Episodic Other liver diseases (1 source) Steatosis of liver; Translations: [Fatty (change of) liver, not elsewhere classified] Chronic Other lower respiratory disease (5 sources) Dyspnea; Translations: [Shortness of breath] Episodic Other lower respiratory disease (1 source) Multiple nodules of lung; Translations: [Other nonspecific abnormal finding of lung field] Episodic Other lower respiratory disease (4 sources) Cough; Translations: [Acute cough] Episodic Other lower respiratory disease (2 sources) Cough; Translations: [Acute cough] 09-13-2024 Episodic Other nervous system disorders (2 sources) Paresthesia of hand ; Translations: [Anesthesia of skin] Episodic Other non-traumatic joint disorders (1 source) Arthralgia of the ankle and/or foot; Translations: [Pain in unspecified ankle and joints of unspecified foot] 04-21-2023 Episodic Other non-traumatic joint disorders (1 source) Pain of left wrist; Translations: [Pain in left wrist] 04-22-2023 Episodic Other nutritional; endocrine; and metabolic disorders (6 sources) Overweight in adulthood with body mass index of 25 or more but less than 30; Translations: [Overweight] Onset: 5 03-07-2025 Episodic Other screening for suspected conditions (not mental disorders or infectious disease) (18 sources) Ultrasonography of liver abnormal; Translations: [Abnormal findings on diagnostic imaging of liver and biliary tract] Onset: 5 Episodic Other skin disorders (2 sources) Foot callus; Translations: [Corns and callosities] Episodic Other skin disorders (2 sources) Lesion of face; Translations: [Disorder of the skin and subcutaneous tissue, unspecified] Episodic Other skin disorders (2 sources) Skin lesion; Translations: [Disorder of the skin and subcutaneous tissue, unspecified] Episodic Residual codes; unclassified (7 sources) Postmenopausal state; Translations: [Asymptomatic menopausal state] Onset: 5 03-07-2025 Episodic Residual codes; unclassified (1 source) Asymptomatic menopausal state; Translations: [Asymptomatic postmenopausal status] Onset: 5 Episodic Substance-related disorders (7 sources) Smoker; Translations: [Nicotine dependence, unspecified, uncomplicated] Onset: 4 Chronic Superficial injury; contusion (6 sources) Contusion of rib; Translations: [Contusion of right front wall of thorax, initial encounter] 09-21-2021 Episodic Thyroid disorders (20 sources) Hypothyroidism; Translations: [Hypothyroidism, unspecified] Onset: 5 07-25-2015 Chronic Unclassified (3 sources) Patient encounter status 03-07-2025 Unclassified (1 source) Acute cough; Translations: [Acute cough] Onset: 5 Urinary tract infections (20 sources) Acute cystitis; Translations: [Acute cystitis with hematuria] Onset: 4 Resolved: 7 07-20-2023 Episodic Past or Other Problems Problem Classification Problem Date Documented Date Episodic/Chronic Diabetes mellitus without complication (20 sources) Impaired fasting glycemia; Translations: [Impaired fasting glucose] Onset: 01-22-2023 02-19-2023 Episodic Heart valve disorders (20 sources) Heart murmur; Translations: [Cardiac murmur, unspecified] Onset: 04-25-2015 04-25-2015 Episodic Immunizations and screening for infectious disease (4 sources) At risk of sexually transmitted infection ; Translations: [Contact with and (suspected) exposure to infections with a predominantly sexual mode of transmission] Onset: 09-13-2024 Episodic Malaise and fatigue (20 sources) Fatigue; Translations: [Other fatigue] Onset: 02-17-2023 Episodic Nonmalignant breast conditions (20 sources) Hypertrophy of breast; Translations: [Hypertrophy of breast] Onset: 12-17-2009 Resolved: 06-21-2013 06-21-2013 Episodic Other connective tissue disease (20 sources) Pain in left arm; Translations: [Pain in left arm] Onset: 10-25-2018 10-25-2018 Episodic Other infections; including parasitic (20 sources) Infection by Trichomonas; Translations: [Trichomoniasis, unspecified] Onset: 11-27-2021 Episodic Other inflammatory condition of skin (1 source) Prurigo nodularis; Translations: [Prurigo nodularis] Onset: 09-13-2024 Episodic Other liver diseases (20 sources) Alkaline phosphatase raised; Translations: [Abnormal levels of other serum enzymes] Onset: 11-27-2021 11-27-2021 Episodic Other nutritional; endocrine; and metabolic disorders (20 sources) Obesity; Translations: [Obesity, unspecified] Onset: 12-22-2005 Resolved: 03-28-2013 03-28-2013 Chronic Other nutritional; endocrine; and metabolic disorders (20 sources) Body mass index 30+ - obesity; Translations: [Obesity, unspecified] Onset: 03-28-2013 Resolved: 03-12-2017 03-12-2017 Chronic Other nutritional; endocrine; and metabolic disorders (20 sources) Cholesterol level - finding; Translations: [Lipoprotein deficiency] Onset: 03-30-2013 Resolved: 03-12-2017 03-12-2017 Chronic Residual codes; unclassified (20 sources) Tobacco user; Translations: [Tobacco use] Onset: 08-04-2013 08-04-2013 Episodic Residual codes; unclassified (20 sources) Tobacco use and exposure - finding; Translations: [Tobacco use] Onset: 08-04-2013 Episodic Screening and history of mental health and substance abuse codes (7 sources) H/O: manic depressive disorder; Translations: [Personal history of other mental and behavioral disorders] Onset: 09-13-2024 12-27-2021 Episodic Spondylosis; intervertebral disc disorders; other back problems (20 sources) Neck pain; Translations: [Cervicalgia] Onset: 08-04-2013 Resolved: 03-12-2017 02-22-2019 Episodic Sprains and strains (20 sources) Sprain of foot; Translations: [Unspecified sprain of left foot, initial encounter] Onset: 09-20-2007 Resolved: 09-30-2012 03-07-2022 Episodic Substance-related disorders (20 sources) Marijuana user; Translations: [Cannabis use, unspecified, uncomplicated] Onset: 02-17-2023 Episodic Unclassified (1 source) Acute cough 11-16-2024 Results Test Name Value Interpretation Reference Range Facil ity Bacteria Ur Culton Bacteria identified Cx Nom (U) ORGANISM ID: 1 10,000 -<50,000 CFU/ml Normal urogenital juan Normal [facility] Comment on above: Performed By: #### 6 30-4 #### [facility] CLIA [id number] [address] [place] [address] [place] CNOVon 04-06-2025 CNOV Office Visit (FAMPWS ) KEVIN POST ([id number]) 1970 F Date Time Provider Department 04/06/25 10:40 AM STEFAN WASHINGTON During your visit today, we recorded the following information about you: Temperature Pulse Blood pressure Weight 98.1 degrees 90/minute 124/82 65.9 kg Stefan Washington APRN.CNP 04/06/2025 3:21 PM Signed 04/06/2025 Recording using ambient AI software for draft documentation of the visit was discussed with the patient/authorized pharmacy sales representative; all questions welcomed and answered. Patient/authorized pharmacy sales representative agreed to proceed HPI: Kevin Post is a 55-year-old female presenting for evaluation of abdominal pain and weight loss. Abdominal Pain: - Reports belly ache but does not provide further details. Weight Loss: - Lost 14 lbs since the beginning of the year. - Actively trying to lose weight, but states, It doesn't feel like it though. Urinary Tract Infection: - Recent UTI diagnosis. Social History: - Celebrated 55rd birthday recently; plans to have a green party on the . - Has a boyfriend, Avery, for almost 3 months. - Avery has a history of methamphetamine use and legal issues but has been clean for 3 years. - Kevin smokes marijuana occasionally with Avery. 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 - Reports a history of family trauma and legal issues involving siblings. PAST MEDICAL HISTORY Diagnosis Date Abdominal pain, other specified site 10/13/2013 Asthma since early twenties Depressive disorder, not elsewhere classified Counseling center, Dr. Mancuso GERD (gastroesophageal reflux disease) IFG (impaired fasting glucose) 01/2023 Low back pain 08/04/2013 Marijuana use 06/2016 Mixed hyperlipidemia Hyperlipidemia Obesity (BMI 30-39.9) 03/28/2013 Thoracic back pain 08/04/2013 Unspecified hypothyroidism UTI (lower urinary tract infection) 05/04/2014 Current Outpatient Medications on File Prior to Visit Medication Sig oxybutynin ER (DITROPAN XL) 10 mg 24 hr tablet Take 1 tablet by mouth once daily. estradiol (ESTRACE) 0.01 % (0.1 mg/gram) vaginal cream Use 1 g vaginally three times a week. lansoprazole (PREVACID) 15 mg capsule Take 2 capsules by mouth once daily. atorvastatin (LIPITOR) 40 mg tablet Take 1 tablet by mouth daily at bedtime. Cholecalciferol, Vitamin D3, 125 mcg (5,000 unit) cap Take 1 capsule by mouth once daily. budesonide-formoterol (SYMBICORT) 160-4.5 mcg/actuation inhaler Inhale 2 puffs as instructed two times a day. hydrocortisone 2.5 % ointment Apply to affected areas on face twice daily -. Take weekends off. triamcinolone acetonide (KENALOG) 0.1 % cream Apply to affected area on extremities twice daily Thursday-Thursday. Take weekends off. Do not use on face, armpits, neck, or groin. Nebulizer and Compressor For Neb 1 Each every 4 hours as needed. tiotropium bromide (SPIRIVA RESPIMAT) 2.5 mcg/actuation inhaler INHALE TWO PUFFS BY MOUTH EVERY DAY albuterol (PROVENTIL) 2.5 mg /3 mL (0.083 %) nebulizer solution Use 3 mL via nebulizer every 4 hours as needed for wheezing/shortness of breath. Use over 5-15minutes. levothyroxine (SYNTHROID) 125 mcg tablet Take 1 tablet by mouth 6 days per week and a half tablet by mouth 1 day per week. Take on empty stomach. For Thyroid albuterol HFA (VENTOLIN HFA) 90 mcg/actuation inhaler INHALE 2 PUFFS EVERY FOUR HOURS NEEDED FOR WHEEZING/SHORTNESS OF BREATH acetylcysteine (NAC) 600 mg capsule Take 1 capsule by mouth two times a day. QUEtiapine (SEROQUEL) 50 mg tablet Take 50 mg by mouth twice daily. No current facility-administered medications on file prior to visit. Review of Systems: Gastrointestinal: (+) abdominal pain Physical Exam: BP 124/82 (BP Site: Left Arm, BP Position: Sitting, BP Cuff Size: Regular Adult) Pulse 90 Temp 36.7 ?C (98.1 ?F) Wt 65.9 kg (145 lb 3.2 oz) LMP 06/21/2018 SpO2 98% BMI 29.33 kg/m? GENERAL: NAD, alert and oriented, disheveled SKIN: unremarkable, no rash or skin lesions. HEAD: normocephalic LUNGS: Clear to auscultation bilaterally, no wheezes/rhonchi/rales . HEART: Regular rate and rhythm, no murmurs. No ectopy. EXTREMITIES: Normal, No deformities, No skin discoloration, No edema. NEURO: Awake, alert and oriented x3, cranial nerves II-XII grossly intact, normal gait, no involuntary motions ABDOMEN: WNL Diagnostics Reviewed: Labs: - Urinalysis: Positive for infection, consistent with a urinary tract infection Assessment/Plan: 1. Acute cystitis with hematuria (N30.01) 2. Burning with urination (R30.0) 3. Pelvic pain (R10.2) 4. Lower abdominal pain (R10.30) 5. Microscopic hematuria (R31.29) 6. Proteinuria, unspecified type (R80.9) - Acute cystitis with hematuria confirmed; associated symptoms include burning with urination, pelvic pain, and lower abdominal pain. (more content not included)... Normal [facility] UA DIP, URINE (POC)on 2024 BILIRUBIN UA (POCT) Negative Negative [facility] CLARITY UA (POCT) Clear [facility] COLOR UA (POCT) Yellow [facility] GLUCOSE UA (POCT) Negative Negative mg/dL [facility] Hemoglobin Ql (U) Moderate Abnormal Negative [facility] Interpretation and review of laboratory results Abnormal [facility] KETONE UA (POCT) Negative Negative mg/dL [facility] LEUKOCYTES UA (POCT) Negative Negative [facility] NITRITE UA (POCT) Negative Negative [facility] PH UA (POCT) 5.5 4.5 - 8.0 [facility] Protein Ql (U) 30 mg/dL Abnormal Negative [facility] SPECIFIC GRAVITY UA (POCT) 1.020 1.005 - 1.030 [facility] UROBILINOGEN UA (POCT) 0.2 Normal E.U./dL [facility] Location:Formerly [facility], [address] [place] [address], [place], [address] [facility] POINT OF CARE [facility] CNPLulú 03-16-2025 CNPN Telephone (FAMPWS) KEVIN POST ([id number]) 1970 F Date Time Provider Department 03/16/25 GABRIEL ALCANTARAPCAIRRA During your visit today, we recorded the following information about you: Hattie Miranda LPN 03/16/2025 9:51 AM Signed Patient calling asking for her lab results. Aware PCP is out of the office this week. Please advise Latest Ref Rng 03/13/2025 WBC 3.70 - 11.00 k/uL 8.67 RBC 3.90 - 5.20 m/uL 5.51 (H) Hemoglobin 11.5 - 15.5 g/dL 15.3 Hematocrit 36.0 - 46.0 % 46.6 (H) MCV 80.0 - 100.0 fL 84.6 MCH 26.0 - 34.0 pg 27.8 MCHC 30.5 - 36.0 g/dL 32.8 RDW-CV 11.5 - 15.0 % 15.8 (H) Platelet Count 150 - 400 k/uL 213 MPV 9.0 - 12.7 fL 12.2 Neut% % 50.6 Abs Neut (ANC) 1.45 - 7.50 k/uL 4.38 Lymph% % 42.4 Abs Lymph 1.00 - 4.00 k/uL 3.68 [place]% % 5.2 Abs [place] <0.87 k/uL 0.45 Eosin% % 0.7 Abs Eosin <0.46 k/uL 0.06 Baso% % 0.8 Abs Baso <0.11 k/uL 0.07 Immature Gran % % 0.3 IMMATURE GRANS (ABS) <0.10 k/uL 0.03 NRBC /100 WBC 0.0 Absolute nRBC <0.01 k/uL <0.01 DTYPE Auto Protein, Total 6.3 - 8.0 g/dL 7.2 Albumin 3.9 - 4.9 g/dL 4.3 Calcium 8.5 - 10.2 mg/dL 9.7 Bilirubin, Total 0.2 - 1.3 mg/dL 0.3 Alkaline Phosphatase 34 - 123 U/L 175 (H) AST 13 - 35 U/L 27 ALT 7 - 38 U/L 17 Glucose 74 - 99 mg/dL 129 (H) BUN 7 - 21 mg/dL 14 Creatinine 0.58 - 0.96 mg/dL 0.94 Sodium 136 - 144 mmol/L 142 Potassium 3.7 - 5.1 mmol/L 3.7 Chloride 98 - 107 mmol/L 106 CO2 22 - 30 mmol/L 22 Anion Gap 8 - 15 mmol/L 14 eGFR >=60 mL/min/1.73m? 73 Hemoglobin A1C 4.3 - 5.6 % 5.8 (H) Estimated Average Glucose mg/dL 120 TSH 0.270 - 4.200 mIU/L 48.300 (H) Legend: (H) High Miranda Delarosa APRN.VINEYARDIST 03/16/2025 10:07 AM Signed Refer to other telephone encounter that I just sent. Closing this one. Thank you, Miranda Delarosa APRN.VINEYARDIST Allergies As of Date: 03/16/2025 Noted Allergy Reaction ADHESIVE TAPE (ROSINS) 02/01/2010 2 - Rash BACTRIM DS (SULFAMETHOXAZOLE-TRI M*03/09/2007 4 - Hives BEE VENOM PROTEIN (HONEY BEE) 04/23/2020 9 - Itching NIASPAN (NIACIN (ANTIHYPERLIPIDEM*08/2005 4 - Hives PENICILLINS 11/09/2007 2 - Rash Date Reviewed: 03/07/2025 Reviewed by: Rafia Valadez LPN - Fully Assessed Reason for Visit: Results, Lab [1201] Prescriptions as of 03/16/2025 - estradiol (ESTRACE) 0.01 % (0.1 mg/gram) vaginal cream Use 1 g vaginally three times a week. - lansoprazole (PREVACID) 15 mg capsule Take 2 capsules by mouth once daily. - atorvastatin (LIPITOR) 40 mg tablet Take 1 tablet by mouth daily at bedtime. - Cholecalciferol, Vitamin D3, 125 mcg (5,000 unit) cap Take 1 capsule by mouth once daily. - budesonide-formoterol (SYMBICORT) 160-4.5 mcg/actuation inhaler Inhale 2 puffs as instructed two times a day. - dupilumab (DUPIXENT PEN) 300 mg/2 mL pen injection Inject 300mg (1 pen) subcutaneously every 2 weeks. - hydrocortisone 2.5 % ointment Apply to affected areas on face twice daily M-F. Take weekends off. - triamcinolone acetonide (KENALOG) 0.1 % cream Apply to affected area on extremities twice daily Thursday-Thursday. Take weekends off. Do not use on face, armpits, neck, or groin. - Nebulizer and Compressor For Neb 1 Each every 4 hours as needed. - tiotropium bromide (SPIRIVA RESPIMAT) 2.5 mcg/actuation inhaler INHALE TWO PUFFS BY MOUTH EVERY DAY - albuterol (PROVENTIL) 2.5 mg /3 mL (0.083 %) nebulizer solution Use 3 mL via nebulizer every 4 hours as needed for wheezing/shortness of breath. Use over 5-15minutes. - levothyroxine (SYNTHROID) 125 mcg tablet Take 1 tablet by mouth 6 days per week and a half tablet by mouth 1 day per week. Take on empty stomach. For Thyroid - albuterol HFA (VENTOLIN HFA) 90 mcg/actuation inhaler INHALE 2 PUFFS EVERY FOUR HOURS NEEDED FOR WHEEZING/SHORTNESS OF BREATH - oxybutynin ER (DITROPAN XL) 10 mg 24 hr tablet Take 1 tablet by mouth once daily. - acetylcysteine (NAC) 600 mg capsule Take 1 capsule by mouth two times a day. - QUEtiapine (SEROQUEL) 50 mg tablet Take 50 mg by mouth twice daily. Meds Comments as of 07/15/2016: Problem List As Of Date 03/16/2025 Noted Resolved Hypothyroidism [E03.9] Dysthymia [F34.1] OBESITY [E66.9] 12/22/2005 03/28/2013 ASTHMA UNSPECIFIED [J45.909] 01/22/2006 Sprain of ankle, unspecified site [S93.409A] 09/20/2007 09/30/2012 Hypertrophy of breast [N62] 12/17/2009 06/21/2013 Extrinsic asthma, unspecified [J45.909] 04/08/2010 03/28/2013 Obesity (BMI 30-39.9) [E66.9] 03/28/2013 03/12/2017 Low HDL (under 40) [E78.6] 03/30/2013 03/12/2017 Tobacco use [Z72.0] 08/04/2013 Thoracic back pain [M54.6] 08/04/2013 03/12/2017 Low back pain [M54.50] 08/04/2013 03/12/2017 Abdominal pain, other specified site [R10.9] 10/13/2013 03/12/2017 UTI (lower urinary tract infection) [N39.0] 05/04/2014 03/12/2017 Heart murmur [R01.1] 04/25/2015 Dyslipidemia [E78.5] (more content not included)... Normal [facility] CBC W Auto Differential pane l (Bld)on 03-13-2025 Basophils (Bld) [#/Vol] 0.07 10*3/uL Normal <0.11 [facility] Comment on above: Order Comment: Speci men Type: BLOOD SPECIMENOrdering Facility: [facility] Address: [address] [place] [address] Performed By: #### 6 30-4 #### [facility] CLIA [id number] [address] [place] [address] [place] Basophils/100 WBC (Bld) 0.8 % Normal [facility] Comment on above: Order Comment: Speci men Type: BLOOD SPECIMENOrdering Facility: [facility] Address: [address] [place] [address] Performed By: #### 6 30-4 #### [facility] CLIA [id number] [address] [place] [address] [place] Differential cell count method Nom (Bld) Auto Normal [facility] Comment on above: Order Comment: Speci men Type: BLOOD SPECIMENOrdering Facility: [facility] Address: [address] [place] [address] Performed By: #### 6 30-4 #### [facility] CLIA [id number] [address] [place] [address] [place] Eosinophils (Bld) [#/Vol] 0.06 10*3/uL Normal <0.46 [facility] Comment on above: Order Comment: Speci men Type: BLOOD SPECIMENOrdering Facility: [facility] Address: [address] [place] [address] Performed By: #### 6 30-4 #### [facility] CLIA [id number] [address] [place] [address] [place] Eosinophils/100 WBC (Bld) 0.7 % Normal [facility] Comment on above: Order Comment: Speci men Type: BLOOD SPECIMENOrdering Facility: [facility] Address: [address] [place] [address] Performed By: #### 6 30-4 #### [facility] CLIA [id number] [address] [place] [address] [place] Erythrocyte distribution width (RBC) [Ratio] 15.8 % High 11.5-15.0 [facility] Comment on above: Order Comment: Speci men Type: BLOOD SPECIMENOrdering Facility: [facility] Address: [address] [place] [address] Performed By: #### 6 30-4 #### [facility] CLIA [id number] [address] [place] [address] [place] Hematocrit (Bld) [Volume fraction] 46.6 % High 36.0-46.0 [facility] Comment on above: Order Comment: Speci men Type: BLOOD SPECIMENOrdering Facility: [facility] Address: [address] [place] [address] Performed By: #### 6 30-4 #### [facility] CLIA [id number] [address] [place] [address] [place] Hemoglobin (Bld) [Mass/Vol] 15.3 g/dL Normal 11.5-15.5 [facility] Comment on above: Order Comment: Speci men Type: BLOOD SPECIMENOrdering Facility: [facility] Address: [address] [place] [address] Performed By: #### 6 30-4 #### [facility] CLIA [id number] [address] [id number] [address] [place] Immature granulocytes (Bld) [#/Vol] 0.03 10*3/uL Normal <0.10 [facility] Comment on above: Order Comment: Speci men Type: BLOOD SPECIMENOrdering Facility: [facility] Address: [address] [place] [address] Performed By: #### 6 30-4 #### [facility] CLIA [id number] [address] [place] [address] [place] Immature granulocytes/100 WBC (Bld) 0.3 % Normal [facility] Comment on above: Order Comment: Speci men Type: BLOOD SPECIMENOrdering Facility: [facility] Address: [address] [place] [address] Performed By: #### 6 30-4 #### [facility] CLIA [id number] [address] [place] [address] [place] Lymphocytes (Bld) [#/Vol] 3.68 10*3/uL Normal 1.00-4.00 [facility] Comment on above: Order Comment: Speci men Type: BLOOD SPECIMENOrdering Facility: [facility] Address: [address] [place] [address] Performed By: #### 6 30-4 #### [facility] CLIA [id number] [address] [place] [address] [place] Lymphocytes/100 WBC (Bld) 42.4 % Normal [facility] Comment on above: Order Comment: Speci men Type: BLOOD SPECIMENOrdering Facility: [facility] Address: [address] [place] [address] Performed By: #### 6 30-4 #### [facility] CLIA [id number] [address] [place] [address] [place] MCH (RBC) [Entitic mass] 27.8 pg Normal 26.0-34.0 [facility] Comment on above: Order Comment: Speci men Type: BLOOD SPECIMENOrdering Facility: [facility] Address: [address] [place] [address] Performed By: #### 6 30-4 #### [facility] CLIA [id number] [address] [place] [address] [place] MCHC (RBC) [Mass/Vol] 32.8 g/dL Normal 30.5-36.0 [facility] Comment on above: Order Comment: Speci men Type: BLOOD SPECIMENOrdering Facility: [facility] Address: [address] [place] [address] Performed By: #### 6 30-4 #### [facility] CLIA [id number] [address] [place] [address] [place] MCV (RBC) [Entitic vol] 84.6 fL Normal 80.0-100.0 [facility] Comment on above: Order Comment: Speci men Type: BLOOD SPECIMENOrdering Facility: [facility] Address: [address] [place] [address] Performed By: #### 6 30-4 #### [facility] CLIA [id number] [address] [place] [address] [place] Monocytes (Bld) [#/Vol] 0.45 10*3/uL Normal <0.87 [facility] Comment on above: Order Comment: Speci men Type: BLOOD SPECIMENOrdering Facility: [facility] Address: [address] [place] [address] Performed By: #### 6 30-4 #### [facility] CLIA [id number] [address] [place] [address] [place] Monocytes/100 WBC (Bld) 5.2 % Normal [facility] Comment on above: Order Comment: Speci men Type: BLOOD SPECIMENOrdering Facility: [facility] Address: [address] [place] [address] Performed By: #### 6 30-4 #### [facility] CLIA [id number] [address] [place] [address] [place] Neutrophils (Bld) [#/Vol] 4.38 10*3/uL Normal 1.45-7.50 [facility] Comment on above: Order Comment: Speci men Type: BLOOD SPECIMENOrdering Facility: [facility] Address: [address] [place] [address] Performed By: #### 6 30-4 #### [facility] CLIA [id number] [address] [place] [address] [place] Neutrophils/100 WBC (Bld) 50.6 % Normal [facility] Comment on above: Order Comment: Speci men Type: BLOOD SPECIMENOrdering Facility: [facility] Address: [address] [place] [address] Performed By: #### 6 30-4 #### [facility] CLIA [id number] [address] [place] [address] [place] Nucleated RBC (Bld) [#/Vol] 10*3/uL Normal <0.01 [facility] Comment on above: Order Comment: Speci men Type: BLOOD SPECIMENOrdering Facility: [facility] Address: [address] [place] [address] Performed By: #### 6 30-4 #### [facility] CLIA [id number] [address] [place] [address] [place] Nucleated RBC/100 WBC (Bld) [Ratio] 0.0 /100 WBC Normal [facility] Comment on above: Order Comment: Speci men Type: BLOOD SPECIMENOrdering Facility: [facility] Address: [address] [place] [address] Performed By: #### 6 30-4 #### [facility] CLIA [id number] [address] [place] [address] [place] Platelet mean volume (Bld) [Entitic vol] 12.2 fL Normal 9.0-12.7 [facility] Comment on above: Order Comment: Speci men Type: BLOOD SPECIMENOrdering Facility: [facility] Address: [address] [place] [address] Performed By: #### 6 30-4 #### [facility] CLIA [id number] [address] [place] [address] [place] Platelets (Bld) [#/Vol] 213 10*3/uL Normal 150-400 [facility] Comment on above: Order Comment: Speci men Type: BLOOD SPECIMENOrdering Facility: [facility] Address: [address] [place] [address] Performed By: #### 6 30-4 #### [facility] CLIA [id number] [address] [place] [address] [place] RBC (Bld) [#/Vol] 5.51 10*6/uL High 3.90-5.20 [facility] Comment on above: Order Comment: Speci men Type: BLOOD SPECIMENOrdering Facility: [facility] Address: [address] [place] [address] Performed By: #### 6 30-4 #### [facility] CLIA [id number] [address] [place] [address] [place] WBC (Bld) [#/Vol] 8.67 10*3/uL Normal 3.70-11.00 [facility] Comment on above: Order Comment: Speci men Type: BLOOD SPECIMENOrdering Facility: [facility] Address: [address] [place] [address] Performed By: #### 6 30-4 #### [facility] CLIA [id number] [address] [place] [address] [place] Comprehensive metabolic 2000 panelon 03-13-2025 Albumin [Mass/Vol] 4.3 g/dL Normal 3.9-4.9 [facility] Comment on above: Order Comment: Speci men Type: BLOOD SPECIMENOrdering Facility: [facility] Address: [address] [place] [address] Performed By: #### 6 30-4 #### [facility] CLIA [id number] [address] [place] [address] [place] ALP [Catalytic activity/Vol] 175 U/L High 34-123 [facility] Comment on above: Order Comment: Speci men Type: BLOOD SPECIMENOrdering Facility: [facility] Address: [address] [place] [address] Performed By: #### 6 30-4 #### [facility] CLIA [id number] [address] [place] [address] [place] ALT [Catalytic activity/Vol] 17 U/L Normal 7-38 [facility] Comment on above: Order Comment: Speci men Type: BLOOD SPECIMENOrdering Facility: [facility] Address: [address] [place] [address] Performed By: #### 6 30-4 #### [facility] CLIA [id number] [address] [place] [address] [place] Anion gap [Moles/Vol] 14 mmol/L Normal 8-15 [facility] Comment on above: Order Comment: Speci men Type: BLOOD SPECIMENOrdering Facility: [facility] Address: [address] [place] [address] Performed By: #### 6 30-4 #### [facility] CLIA [id number] [address] [place] [address] [place] AST [Catalytic activity/Vol] 27 U/L Normal 13-35 [facility] Comment on above: Order Comment: Speci men Type: BLOOD SPECIMENOrdering Facility: [facility] Address: [address] [place] [address] Performed By: #### 6 30-4 #### [facility] CLIA [id number] [address] [place], [place] [id number] [place] Bilirubin [Mass/Vol] 0.3 mg/dL Normal 0.2-1.3 [facility] Comment on above: Order Comment: Speci men Type: BLOOD SPECIMENOrdering Facility: [facility] Address: [address] [place] [address] Performed By: #### 6 30-4 #### [facility] CLIA [id number] [address] [place] [address] [place] Calcium [Mass/Vol] 9.7 mg/dL Normal 8.5-10.2 [facility] Comment on above: Order Comment: Speci men Type: BLOOD SPECIMENOrdering Facility: [facility] Address: [address] [place] [address] Performed By: #### 6 30-4 #### [facility] CLIA [id number] [address] [place] [address] [place] Chloride [Moles/Vol] 106 mmol/L Normal 98-107 [facility] Comment on above: Order Comment: Speci men Type: BLOOD SPECIMENOrdering Facility: [facility] Address: [address] [place] [address] Performed By: #### 6 30-4 #### [facility] CLIA [id number] [address] [place] [address] [place] CO2 [Moles/Vol] 22 mmol/L Normal 22-30 [facility] Comment on above: Order Comment: Speci men Type: BLOOD SPECIMENOrdering Facility: [facility] Address: [address] [place] [address] Performed By: #### 6 30-4 #### [facility] CLIA [id number] [address] [place], [place] [address] [place] Creatinine [Mass/Vol] 0.94 mg/dL Normal 0.58-0.96 [facility] Comment on above: Order Comment: Speci men Type: BLOOD SPECIMENOrdering Facility: [facility] Address: [address] [place], [place] [id number] Performed By: #### 6 30-4 #### [facility] CLIA [id number] [address] [place] [address] [place] eGFRcr SerPlBld CKD-EPI 2020 73 mL/min/1.73m??? Normal >=60 [facility] Comment on above: Order Comment: Damon abarca Type: BLOOD SPECIMENOrdering Facility: [facility] Address: [address] [place] [address] Result Comment: Opal mated Glomerular Filtration Rate (eGFR) is calculated using the 2020 CKD-EPI creatinine equation. This equation utilizes serum creatinine, sex, and age as parameters. The creatinine assay has traceable calibration to isotope dilution-mass spectrometry. Refer to KDIGO guidelines for clinical interpretation. In patients with unstable renal function, e.g. those with acute kidney injury, the eGFR may not accurately reflect actual GFR. Performed By: #### 6 30-4 #### [facility] CLIA [id number] [address] [place] [address] [place] Glucose [Mass/Vol] 129 mg/dL High 74-99 [facility] Comment on above: Order Comment: Damon abarca Type: BLOOD SPECIMENOrdering Facility: [facility] Address: [address] [place] [address] Result Comment: The [place] [employer] (ADA) provides guidance for cutoff values for fasting glucose and random glucose. The ADA defines fasting as no caloric intake for at least 8 hours. Fasting plasma glucose results between 100 to 125 mg/dL indicate increased risk for diabetes (prediabetes). Fasting plasma glucose results greater than or equal to 126 mg/dL meet the criteria for diagnosis of diabetes. In the absence of unequivocal hyperglycemia, results should be confirmed by repeat testing. In a patient with classic symptoms of hyperglycemia or hyperglycemic crisis, random plasma glucose results greater than or equal to 200 mg/dL meet the criteria for diagnosis of diabetes. Reference: Standards of Medical Care in Diabetes 2016, [place] [employer]. Diabetes Care. 2016.39(Suppl 1). Performed By: #### 6 30-4 #### [facility] CLIA [id number] [address] [place] [address] [place] Potassium [Moles/Vol] 3.7 mmol/L Normal 3.7-5.1 [facility] Comment on above: Order Comment: Speci men Type: BLOOD SPECIMENOrdering Facility: [facility] Address: [address] [place] [address] Performed By: #### 6 30-4 #### [facility] CLIA [id number] [address] [place] [address] [place] Protein [Mass/Vol] 7.2 g/dL Normal 6.3-8.0 [facility] Comment on above: Order Comment: Speci men Type: BLOOD SPECIMENOrdering Facility: [facility] Address: [address] [place] [address] Performed By: #### 6 30-4 #### [facility] CLIA [id number] [address] [place] [address] [place] Sodium [Moles/Vol] 142 mmol/L Normal 136-144 [facility] Comment on above: Order Comment: Speci men Type: BLOOD SPECIMENOrdering Facility: [facility] Address: [address] [place] [address] Performed By: #### 6 30-4 #### [facility] CLIA [id number] [address] [place] [address] [place] Urea nitrogen [Mass/Vol] 14 mg/dL Normal 7-21 [facility] Comment on above: Order Comment: Speci men Type: BLOOD SPECIMENOrdering Facility: [facility] Address: [address] [place] [address] Performed By: #### 6 30-4 #### [facility] CLIA [id number] [address] [place], [place] [id number] [place] HbA1c (Bld)on 03-13-2025 Average glucose Estimated from glycated hemoglobin (Bld) [Mass/Vol] 120 mg/dL Normal [facility] Comment on above: Order Comment: Speci men Type: BLOOD SPECIMENOrdering Facility: [facility] [facility] Address: [address] [place] [address] Result Comment: eAG: (Estimated average glucose) is a calculated value from HgbA1c and is pharmacy sales representative of the average blood glucose level in the last 2-3 month period. Performed By: #### 6 30-4 #### [facility] CLIA [id number] [address] [place] [address] [place] HbA1c (Bld) [Mass fraction] 5.8 % High 4.3-5.6 [facility] Comment on above: Order Comment: Damon abarca Type: BLOOD SPECIMENOrdering Facility: [facility] Address: [address] [place] [address] Result Comment: [place] Diabetes Association guidelines indicate that patients with HgbA1c in the range 5.7-6.4% are at increased risk for development of diabetes, and intervention by lifestyle modification may be beneficial. HgbA1c greater or equal to 6.5% is considered diagnostic of diabetes. Performed By: #### 6 30-4 #### [facility] CLIA [id number] [address] [place] [address] [place] TSH SerPl-aCncon 03-13-2025 TSH Qn 48.300 m[IU]/L High 0.270-4.200 [facility] Comment on above: Order Comment: Damon abarca Type: BLOOD SPECIMENOrdering Facility: [facility] Address: [address] [place] [address] Performed By: #### 2 4323-8, 3016-3 ####[facility] [id number] [address] [place] CNOVon 03-07-2025 CNOV Office Visit (FAMPWS ) KEVIN [id number]) 1970 F IPA Date Time Provider Department 03/07/25 12:00 PM GABRIEL ALCANTARA FAMPWS During your visit today, we recorded the following information about you: Temperature Pulse Respiration Blood pressure 97.1 degrees 75/minute 16/minute 116/80 Weight 66.7 kg Gabriel Alcantara, DO 03/07/2025 5:39 PM Signed CC: Kevin Post is a 54 year old female who presents to the office for follow up HPI: Pain with vaginal intercourse. Only at initial intercourse/penetrati on, has vaginal dryness Is post menopausal Not better with use of lubricant She hasn't tried vaginal ointments otherwise No pain or vaginal bleeding otherwise Interested in colonoscopy, asymptomatic Interested in mammogram IFG, diet controlled, admits that she isn't always consistent with her diet since she is living with her sister at this time Hemoglobin A1C Date Value Ref Range Status 09/13/2024 5.8 (H) 4.3 - 5.6 % Final Comment: [place] Diabetes Association guidelines indicate that patients with HgbA1c in the range 5.7-6.4% are at increased risk for development of diabetes, and intervention by lifestyle modification may be beneficial. HgbA1c greater or equal to 6.5% is considered diagnostic of diabetes. 04/08/2024 5.9 (H) 4.3 - 5.6 % Final Comment: [place] Diabetes Association guidelines indicate that patients with HgbA1c in the range 5.7-6.4% are at increased risk for development of diabetes, and intervention by lifestyle modification may be beneficial. HgbA1c greater or equal to 6.5% is considered diagnostic of diabetes. 08/25/2023 5.6 4.3 - 5.6 % Final Comment: [place] Diabetes Association guidelines indicate that patients with HgbA1c in the range 5.7-6.4% are at increased risk for development of diabetes, and intervention by lifestyle modification may be beneficial. HgbA1c greater or equal to 6.5% is considered diagnostic of diabetes. 02/17/2023 5.9 (H) 4.3 - 5.6 % Final Comment: [place] Diabetes Association guidelines indicate that patients with HgbA1c in the range 5.7-6.4% are at increased risk for development of diabetes, and intervention by lifestyle modification may be beneficial. HgbA1c greater or equal to 6.5% is considered diagnostic of diabetes. 09/23/2021 5.6 4.3 - 5.6 % Final Comment: [place] Diabetes Association guidelines indicate that patients with HgbA1c in the range 5.7-6.4% are at increased risk for development of diabetes, and intervention by lifestyle modification may be beneficial. HgbA1c greater or equal to 6.5% is considered diagnostic of diabetes. PAST MEDICAL HISTORY Diagnosis Date Abdominal pain, other specified site 10/13/2013 Asthma since early twenties Depressive disorder, not elsewhere classified Counseling center, Dr. Mancuso GERD (gastroesophageal reflux disease) IFG (impaired fasting glucose) 01/2023 Low back pain 08/04/2013 Marijuana use 06/2016 Mixed hyperlipidemia Hyperlipidemia Obesity (BMI 30-39.9) 03/28/2013 Thoracic back pain 08/04/2013 Unspecified hypothyroidism UTI (lower urinary tract infection) 05/04/2014 PAST SURGICAL HISTORY Procedure Laterality Date BREAST SURGERY PROCEDURE UNLISTED 08/19/2010 nonhealing ulcer right breast, skin graft, MRSA + COLONOSCOPY 02/12/2010 [facility], + internal hemorrhoids LAPAROSCOPY SURG CHOLECYSTECTOMY 04/26/2020 Cholecystectomy, lap LUMPECTOMY/RADIOTHERA PY DIAG MAMM/A10 05/11/2012 left breast, Dr. Silva LUMPECTOMY/RADIOTHERA PY DIAG MAMM/A10 09/11/2011 right breast, Dr. Silva PAST SURGICAL HISTORY OF teeth extraction REDUCTION OF LARGE BREAST 04/26/10 Performed by SHRUTHI ALBARRAN at [facility] Current Outpatient Medications Medication Sig lansoprazole (PREVACID) 15 mg capsule Take 2 capsules by mouth once daily. atorvastatin (LIPITOR) 40 mg tablet Take 1 tablet by mouth daily at bedtime. Cholecalciferol, Vitamin D3, 125 mcg (5,000 unit) cap Take 1 capsule by mouth once daily. budesonide-formoterol (SYMBICORT) 160-4.5 mcg/actuation inhaler Inhale 2 puffs as instructed two times a day. dupilumab (DUPIXENT PEN) 300 mg/2 mL pen injection Inject 300mg (1 pen) subcutaneously every 2 weeks. hydrocortisone 2.5 % ointment Apply to affected areas on face twice daily M-F. Take weekends off. triamcinolone acetonide (KENALOG) 0.1 % cream Apply to affected area on extremities twice daily Thursday-Thursday. Take weekends off. Do not use on face, armpits, neck, or groin. Nebulizer and Compressor For Neb 1 Each every 4 hours as needed. tiotropium bromide (SPIRIVA RESPIMAT) 2.5 mcg/actuation inhaler INHALE TWO PUFFS BY MOUTH EVERY DAY albuterol (PROVENTIL) 2.5 mg /3 mL (0.083 %) nebulizer solution Use 3 mL via nebulizer every 4 hours as needed for wheezing/shortness of breath. Use over 5-15minutes. levothyroxine (SYNTHROID) 125 mcg tablet Take (more content not included)... Normal [facility] CNOVon 01-12-2025 CNOV Office Visit (DERMST ) KEVIN POST ([id number]) 1970 F IPA Date Time Provider Department 01/12/25 2:20 PM ОЛЬГА WHITAKER During your visit today, we recorded the following information about you: Ольга Whitaker PA-C 01/12/2025 2:41 PM Addendum -Hydrocortisone 2.5% ointment. Apply twice daily to affected area(s) on face for up to 5 days per week as needed. Do not apply more than 21 days per month. -Triamcinolone 0.1% cream. Apply twice daily to affected area(s) on extremities for up to 5 days per week as needed. Do not apply more than 21 days per month. Anti-itch Lotions -Look for ingredient: Pramoxine [email or web address] Ольга Whitaker PA-C 01/12/2025 2:41 PM Signed ESTABLISHED PATIENT 01/11/2025 Last Visit in Dermatology: 08/04/2023 with Ca Arvizu MS, SONIA Chief Complaint: Derm Problem HPI: Kevin Post is a 54 year old female. Patient presents with: Derm Problem #1 Prurigo nodularis follow-up Location: generalized throughout trunk and extremities Symptoms/Course: improvement noticed while on Dupixent Current Treatment: Dupixent (last injection was ~ 3 weeks ago) Past Treatment: hydroxyzine, clotrimazole, betamethasone, hydrocortisone, cocoa butter formula Patient requesting refills of Dupixent; tolerating medication well Denies adverse reactions or side effects Pertinent History: History of skin cancer: No History of atypical nevi: No History of blistering sunburns / tanning bed use: No Organ transplant / Immunosuppression: No Pacemaker / Defibrillator / Heart Valve Replacement: No / : No Family history of skin cancer: No PAST MEDICAL HISTORY Diagnosis Date Abdominal pain, other specified site 10/13/2013 Asthma since early twenties Depressive disorder, not elsewhere classified Counseling center, Dr. Mancuso GERD (gastroesophageal reflux disease) IFG (impaired fasting glucose) 01/2023 Low back pain 08/04/2013 Marijuana use 06/2016 Mixed hyperlipidemia Hyperlipidemia Obesity (BMI 30-39.9) 03/28/2013 Thoracic back pain 08/04/2013 Unspecified hypothyroidism UTI (lower urinary tract infection) 05/04/2014 Social History Tobacco Use Smoking status: Every Day Current packs/day: 0.50 Average packs/day: 0.5 packs/day for 30.0 years (15.0 ttl pk-yrs) Types: Cigarettes Smokeless tobacco: Never Vaping Use Vaping status: Never Used Substance Use Topics Alcohol use: Yes Comment: occasional 1-2 drinks Drug use: Yes Types: Marijuana Comment: In the past ALLERGIES Allergen Reactions Adhesive Tape (Rosa Isela* Rash Bactrim Ds [Sulfame* Hives Bee Venom Protein (* Itching Niaspan [Niacin (An* Hives Penicillins Rash Current Outpatient Medications Medication Sig Cholecalciferol, Vitamin D3, 125 mcg (5,000 unit) cap Take 1 capsule by mouth once daily. levothyroxine (SYNTHROID) 125 mcg tablet Take 1 tablet by mouth 6 days per week and a half tablet by mouth 1 day per week. Take on empty stomach. For Thyroid lansoprazole (PREVACID) 15 mg capsule Take 2 capsules by mouth once daily. atorvastatin (LIPITOR) 40 mg tablet Take 1 tablet by mouth daily at bedtime. oxybutynin ER (DITROPAN XL) 10 mg 24 hr tablet Take 1 tablet by mouth once daily. acetylcysteine (NAC) 600 mg capsule Take 1 capsule by mouth two times a day. QUEtiapine (SEROQUEL) 50 mg tablet Take 50 mg by mouth twice daily. dupilumab (DUPIXENT PEN) 300 mg/2 mL pen injection Inject 300mg (1 pen) subcutaneously every 2 weeks. hydrocortisone 2.5 % ointment Apply to affected areas on face twice daily -. Take weekends off. triamcinolone acetonide (KENALOG) 0.1 % cream Apply to affected area on extremities twice daily Thursday-Thursday. Take weekends off. Do not use on face, armpits, neck, or groin. Nebulizer and Compressor For Neb 1 Each every 4 hours as needed. tiotropium bromide (SPIRIVA RESPIMAT) 2.5 mcg/actuation inhaler INHALE TWO PUFFS BY MOUTH EVERY DAY albuterol (PROVENTIL) 2.5 mg /3 mL (0.083 %) nebulizer solution Use 3 mL via nebulizer every 4 hours as needed for wheezing/shortness of breath. Use over 5-15minutes. budesonide-formoterol (SYMBICORT) 160-4.5 mcg/actuation inhaler Inhale 2 Puffs as instructed two times a day. albuterol HFA (VENTOLIN HFA) 90 mcg/actuation inhaler INHALE 2 PUFFS EVERY FOUR HOURS NEEDED FOR WHEEZING/SHORTNESS OF BREATH ROS: Skin as above. PHYSICAL EXAM: Participation of a fellow, resident, medical student, or advanced practice provider student in performing the sensitive examination was discussed with the patient or authorized pharmacy sales representative. The patient or authorized pharmacy sales representative has agreed to proceed with the sensitive examination. Zuniga Skin Type: II The patient is a pleasant female in no apparent distress. Alert and oriented x 3. Appears well developed, well nourished, and in otherwise (more content not included)... Normal [facility] [place] 12-29-[address] [facility] Telephone (FAMPWS) KEVIN POST ([id number]) 1970 F IPA Date Time Provider Department 12/29/24 GABRIEL ALCANTARA During your visit today, we recorded the following information about you: Rebekah Cao RN 12/29/2024 12:02 PM Signed Patient calls to request a letter for [employer] stating that she is unable to work. Patient reports that she reapplied for assistance and they will renew her application if she signs up for the work program. Patient reports that she has an open case with disability and because of that she is unable to work. Patient requesting to have letter as soon as possible as the deadline is January 05. Patient scheduled to see Kayla Corral on 01/03/2025. Patient asking if PCP office can review before then. Noted 12/05/2023 that patient requested release of medical records for social security/disability but nothing after that. MICHELLE Eli Rebekah, APRN.EMILIA 12/29/2024 1:34 PM Signed This is something she needs to discuss in person at an appointment. Stefan Washington APRN.Stephy Thompson 12/29/2024 1:51 PM Signed Left message for patient to return call to PCP Team. When patient calls, please advise provider's message in telephone encounter dated 12/29/24. Allergies As of Date: 12/29/2024 Noted Allergy Reaction ADHESIVE TAPE (ROSINS) 02/01/2010 2 - Rash BACTRIM DS (SULFAMETHOXAZOLE-TRI M*03/09/2007 4 - Hives BEE VENOM PROTEIN (HONEY BEE) 04/23/2020 9 - Itching NIASPAN (NIACIN (ANTIHYPERLIPIDEM*08/2005 4 - Hives PENICILLINS 11/09/2007 2 - Rash Date Reviewed: 11/04/2024 Reviewed by: Audrey Mendoza MA - Fully Assessed Reason for Visit: Letter [264] Prescriptions as of 12/30/2024 - dupilumab (DUPIXENT PEN) 300 mg/2 mL pen injection Inject 300mg (1 pen) subcutaneously every 2 weeks. - Cholecalciferol, Vitamin D3, 125 mcg (5,000 unit) cap Take 1 capsule by mouth once daily. - Nebulizer and Compressor For Neb 1 Each every 4 hours as needed. - tiotropium bromide (SPIRIVA RESPIMAT) 2.5 mcg/actuation inhaler INHALE TWO PUFFS BY MOUTH EVERY DAY - albuterol (PROVENTIL) 2.5 mg /3 mL (0.083 %) nebulizer solution Use 3 mL via nebulizer every 4 hours as needed for wheezing/shortness of breath. Use over 5-15minutes. - levothyroxine (SYNTHROID) 125 mcg tablet Take 1 tablet by mouth 6 days per week and a half tablet by mouth 1 day per week. Take on empty stomach. For Thyroid - budesonide-formoterol (SYMBICORT) 160-4.5 mcg/actuation inhaler Inhale 2 Puffs as instructed two times a day. - lansoprazole (PREVACID) 15 mg capsule Take 2 capsules by mouth once daily. - albuterol HFA (VENTOLIN HFA) 90 mcg/actuation inhaler INHALE 2 PUFFS EVERY FOUR HOURS NEEDED FOR WHEEZING/SHORTNESS OF BREATH - atorvastatin (LIPITOR) 40 mg tablet Take 1 tablet by mouth daily at bedtime. - oxybutynin ER (DITROPAN XL) 10 mg 24 hr tablet Take 1 tablet by mouth once daily. - acetylcysteine (NAC) 600 mg capsule Take 1 capsule by mouth two times a day. - QUEtiapine (SEROQUEL) 50 mg tablet Take 50 mg by mouth twice daily. Meds Comments as of 07/15/2016: Problem List As Of Date 12/29/2024 Noted Resolved Hypothyroidism [E03.9] Dysthymia [F34.1] OBESITY [E66.9] 12/22/2005 03/28/2013 ASTHMA UNSPECIFIED [J45.909] 01/22/2006 Sprain of ankle, unspecified site [S93.409A] 09/20/2007 09/30/2012 Hypertrophy of breast [N62] 12/17/2009 06/21/2013 Extrinsic asthma, unspecified [J45.909] 04/08/2010 03/28/2013 Obesity (BMI 30-39.9) [E66.9] 03/28/2013 03/12/2017 Low HDL (under 40) [E78.6] 03/30/2013 03/12/2017 Tobacco use [Z72.0] 08/04/2013 Thoracic back pain [M54.6] 08/04/2013 03/12/2017 Low back pain [M54.50] 08/04/2013 03/12/2017 Abdominal pain, other specified site [R10.9] 10/13/2013 03/12/2017 UTI (lower urinary tract infection) [N39.0] 05/04/2014 03/12/2017 Heart murmur [R01.1] 04/25/2015 Dyslipidemia [E78.5] 04/25/2015 Symptoms involving urinary system [R39.9] 03/12/2017 Left arm pain [M79.602] 10/25/2018 Neck pain on left side [M54.2] 02/22/2019 Trichomonas infection [A59.9] 11/27/2021 Alkaline phosphatase elevation [R74.8] 11/27/2021 Vitamin D deficiency [E55.9] 11/27/2021 Stress incontinence of urine [N39.3] 01/09/2022 Fatigue [R53.83] 02/17/2023 Routine physical examination [Z00.00] 02/17/2023 Marijuana use [F12.90] 02/17/2023 IFG (impaired fasting glucose) [R73.01] 01/2023 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 KEVIN POST ([id number]) 1970 F IPA Date Time Provider Department 12/26/24 [facility] During your visit today, we recorded the following information about you: Kenya Mccann RN 12/26/2024 10:10 AM Signed Prior authorization requested for the following medication: Medication: dupilumab (Dupixent Pen) 300 mg/2 mL Provider: ordered by Elmira Delarosa CNP Insurance Company Name: [facility]/ Medicaid-see record for insurance details Pharmacy Name: [facility] Telephone number: [phone] MICHELLE Douglas Janice, LPN 12/26/2024 10:23 AM Signed PA already completed and denied. It says they didn't get notes and dx but this was sent. Will ask for an appeal. Jailyn Larry LPN 12/26/2024 10:51 AM Signed Called [facility] to see why this was denied 12/14/24. Reviewed the office note from 09/13/24 did not note a positive clinical response and pt will be monitored routinely and review any negative or or side effects. Pt has appt with 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 01/03/25. Can this be reviewed then? Kayla Corral APRN.CNP 12/26/2024 8:42 PM Signed I do not order dupixent. Per the 09/13/24 note: Missed her appt with derm, she has it rescheduled for next month. States her diver helper recommended her PCP send in her Dupixent for the month until she is able to see them. Requesting this today. She has an appt with derm on 01/12/25. Recommend that she keeps this appt. Kayla Corral APRN.Jailyn Mendez LPN 12/27/2024 8:09 AM Signed Thank you, I'll let the pt know. Jailyn Larry LPN 12/27/2024 10:16 AM Signed CALLED PT'S HOME NUMBER THIS IS NOT CORRECT. MESSAGE LEFT TO PT'S SISTER TO ASK PT TO CALL THE OFFICE. SEE KAYLA'S RESPONSE. THIS NEED REFILLED AND MANAGED WITH DERM. SHE CAN REVIEW THIS AT HER APPT THIS MONTH Stephy Salguero RN 12/27/2024 12:29 PM Signed Patient calls and notified of below. Patient voices understanding. Stephy Salguero RN Allergies As of Date: 12/26/2024 Noted Allergy Reaction ADHESIVE TAPE (ROSINS) 02/01/2010 2 - Rash BACTRIM DS (SULFAMETHOXAZOLE-TRI M*03/09/2007 4 - Hives BEE VENOM PROTEIN (HONEY BEE) 04/23/2020 9 - Itching NIASPAN (NIACIN (ANTIHYPERLIPIDEM*08/2005 4 - Hives PENICILLINS 11/09/2007 2 - Rash Date Reviewed: 11/04/2024 Reviewed by: Audrey Mendoza MA - Fully Assessed Reason for Visit: Prior Authorization Request [Other] Prescriptions as of 12/27/2024 - dupilumab (DUPIXENT PEN) 300 mg/2 mL pen injection Inject 300mg (1 pen) subcutaneously every 2 weeks. - Cholecalciferol, Vitamin D3, 125 mcg (5,000 unit) cap Take 1 capsule by mouth once daily. - Nebulizer and Compressor For Neb 1 Each every 4 hours as needed. - tiotropium bromide (SPIRIVA RESPIMAT) 2.5 mcg/actuation inhaler INHALE TWO PUFFS BY MOUTH EVERY DAY - albuterol (PROVENTIL) 2.5 mg /3 mL (0.083 %) nebulizer solution Use 3 mL via nebulizer every 4 hours as needed for wheezing/shortness of breath. Use over 5-15minutes. - levothyroxine (SYNTHROID) 125 mcg tablet Take 1 tablet by mouth 6 days per week and a half tablet by mouth 1 day per week. Take on empty stomach. For Thyroid - budesonide-formoterol (SYMBICORT) 160-4.5 mcg/actuation inhaler Inhale 2 Puffs as instructed two times a day. - lansoprazole (PREVACID) 15 mg capsule Take 2 capsules by mouth once daily. - albuterol HFA (VENTOLIN HFA) 90 mcg/actuation inhaler INHALE 2 PUFFS EVERY FOUR HOURS NEEDED FOR WHEEZING/SHORTNESS OF BREATH - atorvastatin (LIPITOR) 40 mg tablet Take 1 tablet by mouth daily at bedtime. - oxybutynin ER (DITROPAN XL) 10 mg 24 hr tablet Take 1 tablet by mouth once daily. - acetylcysteine (NAC) 600 mg capsule Take 1 capsule by mouth two times a day. - QUEtiapine (SEROQUEL) 50 mg tablet Take 50 mg by mouth twice daily. Meds Comments as of 07/15/2016: Problem List As Of Date 12/26/2024 Noted Resolved Hypothyroidism [E03.9] Dysthymia [F34.1] OBESITY [E66.9] 12/22/2005 03/28/2013 ASTHMA UNSPECIFIED [J45.909] 01/22/2006 Sprain of ankle, unspecified site [S93.409A] 09/20/2007 09/30/2012 Hypertrophy of breast [N62] 12/17/2009 06/21/2013 Extrinsic asthma, unspecified [J45.909] 04/08/2010 03/28/2013 Obesity (BMI 30-39.9) [E66.9] 03/28/2013 03/12/2017 Low HDL (under 40) [E78.6] 03/30/2013 03/12/2017 Tobacco use [Z72.0] 08/04/2013 Thoracic back pain [M54.6] 08/04/2013 03/12/2017 Low back pain [M54.50] 08/04/2013 03/12/2017 Abdominal pain, other specified site [R10.9] 10/13/2013 03/12/2017 UTI (lower urinary tract infection) [N39.0] 05/04/2014 03/12/2017 Heart murmur [R01.1] 04/25/2015 Dyslipidemia [E78.5] 04/25/2015 Symptoms involving urinary system [R39.9] 03/12/2017 Left arm pain [M79.602] 10/25/2018 Neck pain on left side [M54.2] 02/22/2019 Trichomonas infection [A59.9] 11/27/2021 Alkaline phosphatase elevation [R74.8] 11/27/2021 Vitamin D deficiency [E55 (more content not included)... Normal [facility] CNCOon 11-08-2024 CNCO Letter Text Normal [facility] Bacteria Ur Culton Bacteria identified Cx Nom (U) ORGANISM ID: 1 >=100,000 CFU/ml Escherichia coli ORGANISM ID: 1 (ESCHERICHIA COLI) ------ ANTIBIOTIC INTERPRETATION VIK STATUS REFERENCE RANGE ------ Ampicillin S <=2 F Susceptible <=8 , Intermediate >8 , Resistant >16 Cefazolin S <=4 F Susceptible 0-16 , Intermediate <0 or >16 , Resistant >16 For uncomplicated urinary tract infections, cefazolin results can be used to predict susceptibility or resistance to cephalexin. Ceftriaxone S <=1 F Susceptible <=1 , Intermediate >1 , Resistant >=4 Cefepime S <=1 F Susceptible <=2 , Susceptible-Dose Dependent >2 , Resistant >=16 Ertapenem S <=0.5 F Susceptible <=0.5 , Intermediate >.5 , Resistant >1 Meropenem S <=0.25 F Susceptible <=1 , Intermediate >1 , Resistant >2 Ampicillin/Sulbact S <=2 F Susceptible <=8 , Intermediate >8 , Resistant >16 Piperacillin/Tazobac S <=4 F Susceptible <16 , Susceptible-Dose Dependent >=16 , Resistant >=32 Gentamicin S <=1 F Susceptible <=2 , Intermediate >2 , Resistant >=8 Tobramycin S <=1 F Susceptible <4 , Intermediate >=4 , Resistant >=8 Trimeth sulfameth S <=20 F Susceptible <=40 , Resistant >40 Ciprofloxacin S <=0.25 F Susceptible <0.5 , Intermediate >=.5 , Resistant >=1 Nitrofurantoin S <=16 F Susceptible <=32 , Intermediate >32 , Resistant >64 Abnormal [facility] Comment on above: Performed By: #### 6 30-4 #### [facility] CLIA [id number] [address] [place] [address] [place] [facility] CNOVon 11-04-2024 CNOV Office Visit (FAMPWS ) POSTKEVIN Britney ([id number]) 1970 F IPA Date Time Provider Department 11/04/24 1:20 PM MARY SUBRAMANIAN FAMPWS During your visit today, we recorded the following information about you: Temperature Pulse Blood pressure 98 degrees 84/minute 114/64 Mary Subramanian, CORPORATE CONSULTANT.VINEYARDIST 11/04/2024 2:01 PM Signed This is a 54 year old female who presents today with: Patient presents with: UTI: Urinary frequency x 1 week, hurts when urinating HISTORY OF PRESENT ILLNESS: Kevin Britney Sincere is a 54 year old female. Patient presents with: UTI: Urinary frequency x 1 week, hurts when urinating No fever- + chills with menopause Thought she saw blood in urine Hurting with urination Started 1 week ago No N/V PAST MEDICAL HISTORY: PAST MEDICAL HISTORY Diagnosis Date Abdominal pain, other specified site 10/13/2013 Asthma since early twenties Depressive disorder, not elsewhere classified Counseling center, Dr. Mancuso GERD (gastroesophageal reflux disease) IFG (impaired fasting glucose) 01/2023 Low back pain 08/04/2013 Marijuana use 06/2016 Mixed hyperlipidemia Hyperlipidemia Obesity (BMI 30-39.9) 03/28/2013 Thoracic back pain 08/04/2013 Unspecified hypothyroidism UTI (lower urinary tract infection) 05/04/2014 PAST SURGICAL HISTORY Procedure Laterality Date BREAST SURGERY PROCEDURE UNLISTED 08/19/2010 nonhealing ulcer right breast, skin graft, MRSA + COLONOSCOPY 02/12/2010 [facility], + internal hemorrhoids LAPAROSCOPY SURG CHOLECYSTECTOMY 04/26/2020 Cholecystectomy, lap LUMPECTOMY/RADIOTHERA PY DIAG MAMM/A10 05/11/2012 left breast, Dr. Silva LUMPECTOMY/RADIOTHERA PY DIAG MAMM/A10 09/11/2011 right breast, Dr. Silva PAST SURGICAL HISTORY OF teeth extraction REDUCTION OF LARGE BREAST 04/26/10 Performed by SHRUTHI ALBARRAN at [facility] ALLERGIES Adhesive Tape (Rosins), Bactrim Ds [Sulfamethoxazole-Tri methoprim], Bee Venom Protein (Honey Bee), Niaspan [Niacin (Antihyperlipidemic)] , and Penicillins MEDICATIONS Current Outpatient Medications Medication Sig tiotropium bromide (SPIRIVA RESPIMAT) 2.5 mcg/actuation inhaler INHALE TWO PUFFS BY MOUTH EVERY DAY albuterol (PROVENTIL) 2.5 mg /3 mL (0.083 %) nebulizer solution Use 3 mL via nebulizer every 4 hours as needed for wheezing/shortness of breath. Use over 5-15minutes. levothyroxine (SYNTHROID) 125 mcg tablet Take 1 tablet by mouth 6 days per week and a half tablet by mouth 1 day per week. Take on empty stomach. For Thyroid dupilumab (DUPIXENT PEN) 300 mg/2 mL pen injection Inject 300mg (1 pen) subcutaneously every 2 weeks. Nebulizer and Compressor For Neb 1 Each every 4 hours as needed. Cholecalciferol, Vitamin D3, 125 mcg (5,000 unit) cap Take 1 capsule by mouth once daily. budesonide-formoterol (SYMBICORT) 160-4.5 mcg/actuation inhaler Inhale 2 Puffs as instructed two times a day. lansoprazole (PREVACID) 15 mg capsule Take 2 capsules by mouth once daily. albuterol HFA (VENTOLIN HFA) 90 mcg/actuation inhaler INHALE 2 PUFFS EVERY FOUR HOURS NEEDED FOR WHEEZING/SHORTNESS OF BREATH atorvastatin (LIPITOR) 40 mg tablet Take 1 tablet by mouth daily at bedtime. oxybutynin ER (DITROPAN XL) 10 mg 24 hr tablet Take 1 tablet by mouth once daily. acetylcysteine (NAC) 600 mg capsule Take 1 capsule by mouth two times a day. ibuprofen (MOTRIN) 800 mg tablet Take 1 tablet by mouth every 8 hours as needed for pain. L. acidophilus-L. rhamnosus 15 billion cell cap Take 1 capsule by mouth once daily. Keep in the refrigerator. QUEtiapine (SEROQUEL) 50 mg tablet Take 50 mg by mouth twice daily. No current facility-administered medications for this visit. FAMILY HISTORY Problem Relation Age of Onset Stroke Mother Emphysema Mother Heart Father 50 Diabetes Father Asthma Sister Hypertension Maternal Grandmother Stroke Maternal Grandmother Heart Maternal Grandfather Diabetes Maternal Grandfather Social History Tobacco Use Smoking status: Every Day Current packs/day: 0.50 Average packs/day: 0.5 packs/day for 30.0 years (15.0 ttl pk-yrs) Types: Cigarettes Smokeless tobacco: Never Vaping Use Vaping status: Never Used Substance Use Topics Alcohol use: Yes Comment: occasional 1-2 drinks Drug use: Yes Types: Marijuana Comment: In the past EXAM: BP 114/64 Pulse 84 Temp 36.7 ?C (98 ?F) (Right Tympanic) LMP 06/21/2018 SpO2 97% PHYSICAL EXAM: Physical Exam Vitals reviewed. Constitutional: Appearance: Normal appearance. Cardiovascular: Rate and Rhythm: Normal rate and regular rhythm. Pulses: Normal pulses. Heart sounds: Normal heart sounds. Pulmonary: Effort: Pulmonary effort is normal. Breath sounds: Normal breath sounds. Musculoskeletal: Comments: Moves all ext. And walks w/o assistive device Skin: General: Skin is warm and dry. Comments: (more content not included)... Normal [facility] UA DIP, URINE (POC)on 2024 BILIRUBIN UA (POCT) Negative Negative [facility] CLARITY UA (POCT) Cloudy [facility] COLOR UA (POCT) Yellow [facility] GLUCOSE UA (POCT) Negative Negative mg/dL [facility] Hemoglobin Ql (U) Moderate Abnormal Negative [facility] Interpretation and review of laboratory results Abnormal [facility] KETONE UA (POCT) Negative Negative mg/dL [facility] LEUKOCYTES UA (POCT) Large Abnormal Negative [facility] NITRITE UA (POCT) Positive Abnormal Negative [facility] PH UA (POCT) 6 4.5 - 8.0 [facility] Protein Ql (U) Negative Negative mg/dL [facility] SPECIFIC GRAVITY UA (POCT) 1.01 1.005 - 1.030 [facility] UROBILINOGEN UA (POCT) 0.2 Normal E.U./dL [facility] Location:Formerly [facility], [address] [place] [address], [place], [place], [id number] [place] [address] POINT OF CARE [facility] CNPLulú 11-03-2024 [facility] POSTKEVIN ([id number]) 1970 F IPA Date Time Provider Department 11/03/24 GABRIEL ALCANTARA During your visit today, we recorded the following information about you: Emanuel Coughlin RN 11/03/2024 11:04 AM Signed Faxed nebulizer order to Emanuel Torres, per pt request. Allergies As of Date: 11/03/2024 Noted Allergy Reaction ADHESIVE TAPE (ROSINS) 02/01/2010 2 - Rash BACTRIM DS (SULFAMETHOXAZOLE-TRI M*03/09/2007 4 - Hives BEE VENOM PROTEIN (HONEY BEE) 04/23/2020 9 - Itching NIASPAN (NIACIN (ANTIHYPERLIPIDEM*08/2005 4 - Hives PENICILLINS 11/09/2007 2 - Rash Date Reviewed: 09/13/2024 Reviewed by: Stefan Washington APRN.VINEYARDIST - Fully Assessed Reason for Visit: Faxed to [facility] [Other] Prescriptions as of 11/03/2024 - tiotropium bromide (SPIRIVA RESPIMAT) 2.5 mcg/actuation inhaler INHALE TWO PUFFS BY MOUTH EVERY DAY - albuterol (PROVENTIL) 2.5 mg /3 mL (0.083 %) nebulizer solution Use 3 mL via nebulizer every 4 hours as needed for wheezing/shortness of breath. Use over 5-15minutes. - levothyroxine (SYNTHROID) 125 mcg tablet Take 1 tablet by mouth 6 days per week and a half tablet by mouth 1 day per week. Take on empty stomach. For Thyroid - dupilumab (DUPIXENT PEN) 300 mg/2 mL pen injection Inject 300mg (1 pen) subcutaneously every 2 weeks. - Nebulizer and Compressor For Neb 1 Each every 4 hours as needed. - Cholecalciferol, Vitamin D3, 125 mcg (5,000 unit) cap Take 1 capsule by mouth once daily. - budesonide-formoterol (SYMBICORT) 160-4.5 mcg/actuation inhaler Inhale 2 Puffs as instructed two times a day. - lansoprazole (PREVACID) 15 mg capsule Take 2 capsules by mouth once daily. - albuterol HFA (VENTOLIN HFA) 90 mcg/actuation inhaler INHALE 2 PUFFS EVERY FOUR HOURS NEEDED FOR WHEEZING/SHORTNESS OF BREATH - atorvastatin (LIPITOR) 40 mg tablet Take 1 tablet by mouth daily at bedtime. - oxybutynin ER (DITROPAN XL) 10 mg 24 hr tablet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 [facility] Comment on above: Order Comment: Speci men Type: BLOOD SPECIMENOrdering Facility: [facility] Address: [address] [place] [address] Performed By: #### 6 30-4 #### [facility] CLIA [id number] [address] [place] [address] [place] ALP [Catalytic activity/Vol] 171 U/L High 34-123 [facility] Comment on above: Order Comment: Speci men Type: BLOOD SPECIMENOrdering Facility: [facility] Address: [address] [place] [address] Performed By: #### 6 30-4 #### [facility] CLIA [id number] [address] [place] [address] [place] ALT [Catalytic activity/Vol] 19 U/L Normal 7-38 [facility] Comment on above: Order Comment: Speci men Type: BLOOD SPECIMENOrdering Facility: [facility] Address: [address] [place] [address] Performed By: #### 6 30-4 #### [facility] CLIA [id number] [address] [place] [address] [place] Anion gap [Moles/Vol] 14 mmol/L Normal 8-15 [facility] Comment on above: Order Comment: Speci men Type: BLOOD SPECIMENOrdering Facility: [facility] Address: [address] [place] [address] Performed By: #### 6 30-4 #### [facility] CLIA [id number] [address] [place] [address] [place] AST [Catalytic activity/Vol] 24 U/L Normal 13-35 [facility] Comment on above: Order Comment: Speci men Type: BLOOD SPECIMENOrdering Facility: [facility] Address: [address] [place] [address] Performed By: #### 6 30-4 #### [facility] CLIA [id number] [address] [place] [address] [place] Bilirubin [Mass/Vol] 0.3 mg/dL Normal 0.2-1.3 [facility] Comment on above: Order Comment: Speci men Type: BLOOD SPECIMENOrdering Facility: [facility] Address: [address] [place] [address] Performed By: #### 6 30-4 #### [facility] CLIA [id number] [address] [place] [address] [place] Calcium [Mass/Vol] 10.2 mg/dL Normal 8.5-10.2 [facility] Comment on above: Order Comment: Speci men Type: BLOOD SPECIMENOrdering Facility: [facility] Address: [address] [place] [address] Performed By: #### 6 30-4 #### [facility] CLIA [id number] [address] [place] [address] [place] Chloride [Moles/Vol] 103 mmol/L Normal 98-107 [facility] Comment on above: Order Comment: Speci men Type: BLOOD SPECIMENOrdering Facility: [facility] Address: [address] [place] [address] Performed By: #### 6 30-4 #### [facility] CLIA [id number] [address] [place] [address] [place] CO2 [Moles/Vol] 26 mmol/L Normal 22-30 [facility] Comment on above: Order Comment: Speci men Type: BLOOD SPECIMENOrdering Facility: [facility] Address: [address] [place] [address] Performed By: #### 6 30-4 #### [facility] CLIA [id number] [address] [place] [address] [place] Creatinine [Mass/Vol] 0.88 mg/dL Normal 0.58-0.96 [facility] Comment on above: Order Comment: Damon abarca Type: BLOOD SPECIMENOrdering Facility: [facility] Address: [address] [place] [address] Performed By: #### 6 30-4 #### [facility] CLIA [id number] [address] [place] [address] [place] Creatinine and Glomerular filtration rate.predicted panel (S/P/Bld) 79 mL/min/1.73m??? Normal >=60 [facility] Comment on above: Order Comment: Damon abarca Type: BLOOD SPECIMENOrdering Facility: [facility] Address: [address] [place] [address] Result Comment: Opal mated Glomerular Filtration Rate (eGFR) is calculated using the 2020 CKD-EPI creatinine equation. This equation utilizes serum creatinine, sex, and age as parameters. The creatinine assay has traceable calibration to isotope dilution-mass spectrometry. Refer to KDIGO guidelines for clinical interpretation. In patients with unstable renal function, e.g. those with acute kidney injury, the eGFR may not accurately reflect actual GFR. Performed By: #### 6 30-4 #### [facility] CLIA [id number] [address] [place] [address] [place] Glucose [Mass/Vol] 87 mg/dL Normal 74-99 [facility] Comment on above: Order Comment: Damon abarca Type: BLOOD SPECIMENOrdering Facility: [facility] Address: [address] [place] [address] Result Comment: The [place] Diabetes Association (ADA) provides guidance for cutoff values for fasting glucose and random glucose. The ADA defines fasting as no caloric intake for at least 8 hours. Fasting plasma glucose results between 100 to 125 mg/dL indicate increased risk for diabetes (prediabetes). Fasting plasma glucose results greater than or equal to 126 mg/dL meet the criteria for diagnosis of diabetes. In the absence of unequivocal hyperglycemia, results should be confirmed by repeat testing. In a patient with classic symptoms of hyperglycemia or hyperglycemic crisis, random plasma glucose results greater than or equal to 200 mg/dL meet the criteria for diagnosis of diabetes. Reference: Standards of Medical Care in Diabetes 2016, [place] Diabetes Association. Diabetes Care. 2016.39(Suppl 1). Performed By: #### 6 30-4 #### [facility] CLIA [id number] [address] [place] [address] [place] Potassium [Moles/Vol] 4.3 mmol/L Normal 3.7-5.1 [facility] Comment on above: Order Comment: Speci men Type: BLOOD SPECIMENOrdering Facility: [facility] Address: [address] [place] [address] Performed By: #### 6 30-4 #### [facility] CLIA [id number] [address] [place] [address] [place] Protein [Mass/Vol] 7.4 g/dL Normal 6.3-8.0 [facility] Comment on above: Order Comment: Speci men Type: BLOOD SPECIMENOrdering Facility: [facility] Address: [address] [place] [address] Performed By: #### 6 30-4 #### [facility] CLIA [id number] [address] [place] [address] [place] Sodium [Moles/Vol] 143 mmol/L Normal 136-144 [facility] Comment on above: Order Comment: Speci men Type: BLOOD SPECIMENOrdering Facility: [facility] Address: [address] [place] [address] Performed By: #### 6 30-4 #### [facility] CLIA [id number] [address] [place], [place] [id number] [place] Urea nitrogen [Mass/Vol] 8 mg/dL Normal 7-21 [facility] Comment on above: Order Comment: Speci men Type: BLOOD SPECIMENOrdering Facility: [facility] Address: [address] [place] [address] Performed By: #### 6 30-4 #### [facility] CLIA [id number] [id number] [place] HbA1c (Bld)on 09-13-2024 Average glucose Estimated from glycated hemoglobin (Bld) [Mass/Vol] 120 mg/dL Normal [facility] Comment on above: Order Comment: Damon abarca Type: BLOOD SPECIMENOrdering Facility: [facility] Address: [address] [place] [address] Result Comment: eAG: (Estimated average glucose) is a calculated value from HgbA1c and is pharmacy sales representative of the average blood glucose level in the last 2-3 month period. Performed By: #### 5 5454-3 ####[facility] [id number] [place] [address] [place] HbA1c (Bld) [Mass fraction] 5.8 % High 4.3-5.6 [facility] Comment on above: Order Comment: Damon abarca Type: BLOOD SPECIMENOrdering Facility: [facility] Address: [address] [place] [address] Result Comment: [place] Diabetes Association guidelines indicate that patients with HgbA1c in the range 5.7-6.4% are at increased risk for development of diabetes, and intervention by lifestyle modification may be beneficial. HgbA1c greater or equal to 6.5% is considered diagnostic of diabetes. Performed By: #### 5 5454-3 ####[facility] [id number] [place] [address] [place] Lipid 1996 panelon 5 Cholesterol [Mass/Vol] 215 mg/dL High <200 [facility] Comment on above: Order Comment: Damon abarca Type: BLOOD SPECIMENOrdering Facility: [facility] Address: [address] [place] [address] Result Comment: <200 mg/dL, Desirable 200-239 mg/dL, Borderline high >239 mg/dL, High Performed By: #### 6 30-4 #### [facility] CLIA [id number] [address] [place] [address] [place] Cholesterol in HDL [Mass/Vol] 37 mg/dL Low >39 [facility] Comment on above: Order Comment: Kimmielibrado abarca Type: BLOOD SPECIMENOrdering Facility: [facility] Address: [address] [place] [address] Result Comment: 40-5 9 mg/dL, Acceptable >59 mg/dL, High: Negative risk factor for coronary heart disease <40 mg/dL, Low: Positive risk factor for coronary heart disease Performed By: #### 6 30-4 #### [facility] CLIA [id number] [address] [place] [address] [place] Cholesterol in LDL [Mass/Vol] 136 mg/dL High <100 [facility] Comment on above: Order Comment: Kimmielibrado abarca Type: BLOOD SPECIMENOrdering Facility: [facility] Address: [address] [place] [address] Result Comment: <100 mg/dL, Optimal 100-129 mg/dL, Near optimal/above optimal 130-159 mg/dL, Borderline high 160-189 mg/dL, High >189 mg/dL, Very high Secondary prevention optimal LDL Cholesterol levels are recommended to be < 70 mg/dL Performed By: #### 6 30-4 #### [facility] CLIA [id number] [address] [place] [address] [place] Cholesterol in LDL/Cholesterol in HDL [Mass ratio] 3.68 {ratio} High <2.54 [facility] Comment on above: Order Comment: Damon abarca Type: BLOOD SPECIMENOrdering Facility: [facility] Address: [address] [place] [address] Result Comment: Refe rence: 1. National Cholesterol Education Program ATP III Guideline At-A-Glance Quick Desk Reference: National Heart, Lung, and Blood [place]. National Institutes of Health. 2001: NIH Publication No. 01-3305. 2. An International Atherosclerosis Society position paper: global recommendations for the management of dyslipidemia: executive summary, Atherosclerosis. 2014: 232(2):410-413. Performed By: #### 6 30-4 #### [facility] CLIA [id number] [address] [id number] [address] [place] Cholesterol in VLDL [Mass/Vol] 42 mg/dL High <30 [facility] Comment on above: Order Comment: Speci men Type: BLOOD SPECIMENOrdering Facility: [facility] Address: [address] [place] [address] Performed By: #### 6 30-4 #### [facility] CLIA [id number] [address] [place] [address] [place] Cholesterol non HDL [Mass/Vol] 178 mg/dL High <130 [facility] Comment on above: Order Comment: Speci men Type: BLOOD SPECIMENOrdering Facility: [facility] Address: [address] [place] [address] Result Comment: <130 mg/dL, Optimal 130-159 mg/dL, Near optimal/above optimal 160-189 mg/dL, Borderline high 190-219 mg/dL, High >219 mg/dL, Very high Secondary prevention optimal non HDL Cholesterol levels are recommended to be <100 mg/dL Performed By: #### 6 30-4 #### [facility] CLIA [id number] [address] [place] [address] [place] Cholesterol.total/C holesterol in HDL [Mass ratio] 5.81 {ratio} High <5.10 [facility] Comment on above: Order Comment: Speci men Type: BLOOD SPECIMENOrdering Facility: [facility] Address: [address] [place] [address] Performed By: #### 6 30-4 #### [facility] CLIA [id number] [address] [place] [address] [place] FASTING TIME 12 hrs Normal [facility] Comment on above: Order Comment: Speci men Type: BLOOD SPECIMENOrdering Facility: [facility] Address: [address] [place] [address] Performed By: #### 6 30-4 #### [facility] CLIA [id number] [address] [place] [address] [place] Triglyceride [Mass/Vol] 208 mg/dL High <150 [facility] Comment on above: Order Comment: Speci men Type: BLOOD SPECIMENOrdering Facility: [facility] Address: [address] [place] [address] Result Comment: <150 mg/dL, Normal 150-199 mg/dL, Borderline high 200-499 mg/dL, High >499 mg/dL, Very high Performed By: #### 6 30-4 #### [facility] CLIA [id number] [address] [place] [address] [place] T4 Free SerPl-mCncon 025 Free T4 [Mass/Vol] 1.4 ng/dL Normal 0.9-1.7 [facility] Comment on above: Order Comment: Speci men Type: BLOOD SPECIMENOrdering Facility: [facility] Address: [address] [place] [address] Performed By: #### 6 30-4 #### [facility] CLIA [id number] [address] [place] [address] [place] TSH SerPl-aCncon 09-13-2024 TSH Qn 0.953 m[IU]/L Normal 0.270-4.200 [facility] Comment on above: Order Comment: Speci men Type: BLOOD SPECIMENOrdering Facility: [facility] Address: [address] [place] [address] Performed By: #### 6 30-4 #### [facility] CLIA [id number] [address] [place] [address] [place] CNPLulú 08-10-2024 CNPN Telephone (DERMST) KEVIN POST ([id number]) 1970 F Date Time Provider Department 08/10/24 JERRI WHITAKER During your visit today, we recorded the following information about you: Federico LoboEllenCeli 08/10/2024 3:17 PM Signed Prescription Refill Information The patient has been identified by name and date of : Yes Caregiver verified no other encounters exist for this prescription request: Yes Caregiver confirmed with patient/requestor that no other refills are due, in the near future, with this provider at this time: Yes The last office visit in the department: Does the patient have a future office visit with this provider/department: Yes Requested Prescriptions Pending Prescriptions Disp Refills dupilumab (DUPIXENT PEN) 300 mg/2 mL pen injection 4 mL 2 Sig: Inject 300mg (1 pen) subcutaneously every 2 weeks. Patient asking for a short term refill until she is seen.please call her at [phone] Celi Lobo August 10, 2024 3:15 PM Grace Borrego LPN 08/10/2024 3:24 PM Signed We are unable to refill the patient's prescription at this time for the following reason: [facility] Dermatology: 08/04/23. The patient has not been seen by a currently practicing prescriber in dermatology at [facility] in the last 12 months and does not have an upcoming appointment. Options include: The patient may be able to request an appointment / refill from her PCP. Alternately, the patient can call for a next available appointment with a provider in dermatology at [facility]. The patient may also call for cancellations. The patient may request from schedulers a department wide search for the next available [facility] diver helper. GR PhamPenelopee 08/26/2024 9:37 AM Signed Patient is requesting if PCP will order this medication as she is scheduled with Dermatology for 10/17/24 she missed last appointment due to being in the fdc. Stefan Washington APRN.CNP 08/26/2024 2:36 PM Signed Unfortunately this is not a medication we prescribe in family medicine. AL De La Vega Jazzmin, MA 08/26/2024 4:03 PM Signed Attempted to contact pt with number below and it's not patients number. 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 - Cholecalciferol, Vitamin D3, 125 mcg (5,000 unit) cap Take 1 capsule by mouth once daily. - levothyroxine (SYNTHROID) 125 mcg tablet Take 1 tablet by mouth 6 days per week and a half tablet by mouth 1 day per week. Take on empty stomach. For Thyroid - lansoprazole (PREVACID) 15 mg capsule Take 2 capsules by mouth once daily. - albuterol HFA (VENTOLIN HFA) 90 mcg/actuation inhaler INHALE 2 PUFFS EVERY FOUR HOURS NEEDED FOR WHEEZING/SHORTNESS OF BREATH - budesonide-formoterol (SYMBICORT) 160-4.5 mcg/actuation inhaler Inhale 2 Puffs as instructed two times a day. - atorvastatin (LIPITOR) 40 mg tablet Take 1 tablet by mouth daily at bedtime. - tiotropium bromide (SPIRIVA RESPIMAT) 2.5 mcg/actuation inhaler INHALE TWO PUFFS BY MOUTH EVERY DAY - oxybutynin ER (DITROPAN XL) 10 mg 24 hr tablet Take 1 tablet by mouth once daily. - albuterol (PROVENTIL) 2.5 mg /3 mL (0.083 %) nebulizer solution Use 3 mL via nebulizer every 4 hours as needed for wheezing/shortness of breath. Use over 5-15minutes. - phenazopyridine (PYRIDIUM) 200 mg tablet Take 1 tablet by mouth three times a day as needed. - triamcinolone acetonide (KENALOG) 0.1 % cream Apply to affected areas twice daily up to 5 days per week, as needed for itching. Do not apply to face, armpits or groin. - acetylcysteine (NAC) 600 mg capsule Take 1 capsule by mouth two times a day. - Arm Brace (WRIST BRACE LARGE) misc 1 Each once daily. At bedtime - Nebulizer and Compressor For Neb 1 Each every 4 hours as needed. - ibuprofen (MOTRIN) 800 mg tablet Take 1 tablet by mouth every 8 hours as needed for pain. - L. acidophilus-L. rhamnosus 15 billion cell cap Take 1 capsule by mouth once daily. Keep in the refrigerator. - venlafaxine ER (EFFEXOR XR) 75 mg 24 hr capsule Take 1 capsule by mouth twice daily. - polyethylene glycol 3350 (MIRALAX) 17 gram/dose powder Take 17 g by mouth as needed. Take 1 dose daily PO - fluticasone (FLONASE) 50 mcg/actuation nasal (more content not included)... Normal [facility] CNCOon 05-18-2024 CNCO Letter Text Normal [facility] Urine Drug Screen (VISTA)on 05-11-2024 AMPHETAMINES Negative Normal <1000 ng/mL [facility] Comment on above: Order Comment: MED T OX Performed By: #### L [id number] #### [facility] [address] [place], [place], [id number] BARBITIURATES Negative Normal < 200 ng/mL [facility] Comment on above: Order Comment: MED T OX Performed By: #### L [id number] #### [facility] [address] [place], [place], [id number] BENZODIAZIPINE Negative Normal < 200 ng/mL [facility] Comment on above: Order Comment: MED T OX Performed By: #### L [id number] #### [facility] [address] [place], [place], [id number] COCAINE Negative Normal < 300 ng/mL [facility] Comment on above: Order Comment: MED T OX Performed By: #### L [id number] #### [facility] [address] [place], [address] ECSTACY Negative Normal < 500 ng/mL [facility] Comment on above: Order Comment: MED T OX Performed By: #### L [id number] #### [facility] [address] [place], [place], [phone] METHADONE Negative Normal < 300 ng/mL [facility] Comment on above: Order Comment: MED T OX Performed By: #### L [id number] #### [facility] [address] [place], [address] OPIATES Negative Normal < 300 ng/mL [facility] Comment on above: Order Comment: MED T OX Performed By: #### L [id number] #### [facility] [address] [facility] [address] PCP Negative Normal < 25 ng/mL [facility] Comment on above: Order Comment: MED T OX Performed By: #### L [id number] #### [facility] [address] [place], [address] THC Positive Abnormal < 50 ng/mL [facility] Comment on above: Order Comment: MED T OX Performed By: #### L [id number] #### [facility] [address] [place], [address] VISTA UDS PH 5 Normal [facility] Comment on above: Order Comment: MED T OX Performed By: #### L [id number] #### [facility] [address] [place], [address] CNCOon 04-15-2024 CNCO Letter Text Normal [facility] Keenan 04-11-2024 CNPN Telephone (FAMPWS) KEVIN POST ([id number]) 1970 F Date Time Provider Department 04/11/24 MARY SUBRAMANIAN During your visit today, we recorded the following information about you: Audrey Mendoza MA 04/11/2024 12:24 PM Signed ----- Message from Mary Subramanian sent at 04/11/2024 12:18 PM EDT ----- Urine culture showed mixed organisms meaning that there is no infection. Specimen was contaminated but no bacterial infection. Audrey Mendoza MA 04/11/2024 3:16 PM Signed Patient was made aware of the results. Patient verbalizes understanding. Audrey Mendoza Ma Allergies As of Date: 04/11/2024 Noted Allergy Reaction ADHESIVE TAPE (ROSINS) 02/01/2010 2 - Rash BACTRIM DS (SULFAMETHOXAZOLE-TRI M*03/09/2007 4 - Hives BEE VENOM PROTEIN (HONEY BEE) 04/23/2020 9 - Itching NIASPAN (NIACIN (ANTIHYPERLIPIDEM*08/2005 4 - Hives PENICILLINS 11/09/2007 2 - Rash Date Reviewed: 04/08/2024 Reviewed by: Mary Subramanian APRN.VINEYARDIST - Fully Assessed Reason for Visit: Results [95] Prescriptions as of 04/11/2024 - mupirocin (BACTROBAN) 2 % ointment Apply 1 application to affected area once daily for 5 days. - nitrofurantoin monohydrate and macrocrystal (MACROBID) 100 mg capsule Take 1 capsule by mouth two times a day with meals for 7 days. - Cholecalciferol, Vitamin D3, 125 mcg (5,000 unit) cap Take 1 capsule by mouth once daily. - lansoprazole (PREVACID) 15 mg capsule Take 2 capsules by mouth once daily. - albuterol HFA (VENTOLIN HFA) 90 mcg/actuation inhaler INHALE 2 PUFFS EVERY FOUR HOURS NEEDED FOR WHEEZING/SHORTNESS OF BREATH - budesonide-formoterol (SYMBICORT) 160-4.5 mcg/actuation inhaler Inhale 2 Puffs as instructed two times a day. - atorvastatin (LIPITOR) 40 mg tablet Take 1 tablet by mouth daily at bedtime. - tiotropium bromide (SPIRIVA RESPIMAT) 2.5 mcg/actuation inhaler INHALE TWO PUFFS BY MOUTH EVERY DAY - levothyroxine (SYNTHROID) 125 mcg tablet Take 1 tablet by mouth 6 days per week and a half tablet by mouth 1 day per week. Take on empty stomach. For Thyroid - oxybutynin ER (DITROPAN XL) 10 mg 24 hr tablet Take 1 tablet by mouth once daily. - dupilumab (DUPIXENT PEN) 300 mg/2 mL pen injection Inject 300mg (1 pen) subcutaneously every 2 weeks. - albuterol (PROVENTIL) 2.5 mg /3 mL (0.083 %) nebulizer solution Use 3 mL via nebulizer every 4 hours as needed for wheezing/shortness of breath. Use over 5-15minutes. - phenazopyridine (PYRIDIUM) 200 mg tablet Take 1 tablet by mouth three times a day as needed. - triamcinolone acetonide (KENALOG) 0.1 % cream Apply to affected areas twice daily up to 5 days per week, as needed for itching. Do not apply to face, armpits or groin. - acetylcysteine (NAC) 600 mg capsule Take 1 capsule by mouth two times a day. - Arm Brace (WRIST BRACE LARGE) misc 1 Each once daily. At bedtime - Nebulizer and Compressor For Neb 1 Each every 4 hours as needed. - ibuprofen (MOTRIN) 800 mg tablet Take 1 tablet by mouth every 8 hours as needed for pain. - L. acidophilus-L. rhamnosus 15 billion cell cap Take 1 capsule by mouth once daily. Keep in the refrigerator. - venlafaxine ER (EFFEXOR XR) 75 mg 24 hr capsule Take 1 capsule by mouth twice daily. - polyethylene glycol 3350 (MIRALAX) 17 gram/dose powder Take 17 g by mouth as needed. Take 1 dose daily PO - fluticasone (FLONASE) 50 mcg/actuation nasal spray Use 2 Sprays in each nostril once daily. Rinse mouth after use. - QUEtiapine (SEROQUEL) 50 mg tablet Take 50 mg by mouth twice daily. - hydrOXYzine HCl (ATARAX) 25 mg tablet Take 1 tablet by mouth every 6 hours as needed for Itching/Rash. - COMPOUNDED PRESCRIPTION Nebulizer Machine Dx: Asthma 493 Meds Comments as of 07/15/2016: Problem List As Of Date 04/11/2024 Noted Resolved Hypothyroidism [E03.9] Dysthymia [F34.1] OBESITY [E66.9] 12/22/2005 03/28/2013 ASTHMA UNSPECIFIED [J45.909] 01/22/2006 Sprain of ankle, unspecified site [S93.409A] 09/20/2007 09/30/2012 Hypertrophy of breast [N62] 12/17/2009 06/21/2013 Extrinsic asthma, unspecified [J45.909] 04/08/2010 03/28/2013 Obesity (BMI 30-39.9) [E66.9] 03/28/2013 03/12/2017 Low HDL (under 40) [E78.6] 03/30/2013 03/12/2017 Tobacco use [Z72.0] 08/04/2013 Thoracic back pain [M54.6] 08/04/2013 03/12/2017 Low back pain [M54.50] 08/04/2013 03/12/2017 Abdominal pain, other specified site [R10.9] 10/13/2013 03/12/2017 UTI (lower urinary tract infection) [N39.0] 05/04/2014 03/12/2017 Heart murmur [R01.1] 04/25/2015 Dyslipidemia [E78.5] 04/25/2015 Symptoms involving urinary system [R39.9] 03/12/2017 Left arm pain [M79.602] 10/25/2018 Neck pain on left side [M54.2] 02/22/2019 Trichomonas infection [A59.9] 11/27/2021 Alkaline phosphatase elevation [R74.8] 11/27/2021 Vitamin D deficiency [E55.9] 11/27/2021 Stress incontinence of urine [N39.3] 01/09/2022 Fatigue [R53.83] 02/17/ more content not included)... [facility], [facility] (POC)on 2023 BILIRUBIN UA (POCT) Negative Negative [facility] CLARITY UA (POCT) Clear [facility] COLOR UA (POCT) Yellow [facility] GLUCOSE UA (POCT) Negative Negative mg/dL [facility] Hemoglobin Ql (U) Moderate Abnormal Negative [facility] Interpretation and review of laboratory results Abnormal [facility] KETONE UA (POCT) Negative Negative mg/dL [facility] LEUKOCYTES UA (POCT) Large Abnormal Negative [facility] NITRITE UA (POCT) Negative Negative [facility] PH UA (POCT) 6.0 4.5 - 8.0 [facility] Protein Ql (U) 30 mg/dL Abnormal Negative [facility] SPECIFIC GRAVITY UA (POCT) 1.015 1.005 - 1.030 [facility] UROBILINOGEN UA (POCT) 0.2 Normal E.U./dL [facility] Location:[address], [place], [place], [id number] [place] [address] POINT OF CARE [facility] UA DIP, URINE (POC)on 2023 BILIRUBIN UA (POCT) Negative Negative [facility] CLARITY UA (POCT) Clear [facility] COLOR UA (POCT) Yellow [facility] GLUCOSE UA (POCT) Negative Negative mg/dL [facility] Hemoglobin Ql (U) Trace-intact Abnormal Negative [facility] KETONE UA (POCT) Negative Negative mg/dL [facility] LEUKOCYTES UA (POCT) Negative Negative [facility] NITRITE UA (POCT) Negative Negative [facility] PH UA (POCT) 6.0 4.5 - 8.0 [facility] Protein Ql (U) Negative Negative mg/dL [facility] SPECIFIC GRAVITY UA (POCT) <=1.005 Abnormal 1.005 - 1.030 [facility] UROBILINOGEN UA (POCT) 0.2 E.U./dL Normal E.U./dL [facility] URINE CULTUREon 07-21-2023 Bacteria identified Cx Nom (U) 10,000 -<50,000 CFU/ml Normal urogenital juan [facility] UA DIP, URINE (POC)on 2022 BILIRUBIN UA (POCT) Negative Negative [facility] CLARITY UA (POCT) Clear [facility] COLOR UA (POCT) Yellow [facility] GLUCOSE UA (POCT) Negative Negative mg/dL [facility] Hemoglobin Ql (U) Small Abnormal Negative [facility] KETONE UA (POCT) Negative Negative mg/dL [facility] LEUKOCYTES UA (POCT) Negative Negative [facility] NITRITE UA (POCT) Negative Negative [facility] PH UA (POCT) 6.0 4.5 - 8.0 [facility] Protein Ql (U) Negative Negative mg/dL [facility] SPECIFIC GRAVITY UA (POCT) <=1.005 Abnormal 1.005 - 1.030 [facility] UROBILINOGEN UA (POCT) 0.2 E.U./dL Normal E.U./dL [facility] CT CHEST WO IVCONon 02-27-20 [facility] XR CHEST 2V FRONTAL/LATon [facility] XR Chest PA and Lateralon IMPRESSION: No acute radiographic abnormality. [facility]: [place] Transcribe Date/Time: Feb 04 2023 10:48A Dictated by : ANNE JAMES MD This examination was interpreted and the report reviewed and electronically signed by: ANNE JAMES MD on Feb 04 2023 10:49AM [facility] DIVISION OF RADIOLOGY * * *Final Report* * * DATE OF EXAM: Feb 04 2023 10:40AM WOX [id number] - XR CHEST 2V FRONTAL/LAT / PROCEDURE REASON: multiple diagnoses * * * * Physician Interpretation * * * * EXAMINATION: CHEST RADIOGRAPH (2 VIEW FRONTAL & LATERAL) CLINICAL HISTORY: Acute cough COPD with chronic bronchitis (HCC) MQ: XC2_6 EXAM DATE/TIME: 02/04/2023 10:40 AM COMPARISON: Chest x-ray dated March 21, 2022 RESULT: Lines, tubes, and devices: None. Lungs and pleura: No consolidation. No lung mass. No pleural effusion. No pneumothorax. Cardiomediastinal silhouette: Stable cardiomediastinal silhouette. Bones and soft tissues: No acute abnormality DIVISION OF RADIOLOGY Provider, [facility] - 02/04/2023 * * *Final Report* * * DATE OF EXAM: Feb 04 2023 10:40AM WOX [id number] - XR CHEST 2V FRONTAL/LAT / PROCEDURE REASON: multiple diagnoses * * * * Physician Interpretation * * * * EXAMINATION: CHEST RADIOGRAPH (2 VIEW FRONTAL & LATERAL) CLINICAL HISTORY: Acute cough COPD with chronic bronchitis (HCC) MQ: XC2_6 EXAM DATE/TIME: 02/04/2023 10:40 AM COMPARISON: Chest x-ray dated March 21, 2022 RESULT: Lines, tubes, and devices: None. Lungs and pleura: No consolidation. No lung mass. No pleural effusion. No pneumothorax. Cardiomediastinal silhouette: Stable cardiomediastinal silhouette. Bones and soft tissues: No acute abnormality IMPRESSION IMPRESSION: No acute radiographic abnormality. [facility]: [place] Transcribe Date/Time: Feb 04 2023 10:48A Dictated by : ANNE JAMES MD This examination was interpreted and the report reviewed and electronically signed by: ANNE JAMES MD on Feb 04 2023 10:49AM [facility] Radiology Study observation (narrative) [facility] XR Chest PA and LateralOrder ed By: Ccf Provider on 02-04-2023 [facility] XR Foot - left AP and Latera l and obliqueon 12-29-2022 IMPRESSION: Miniscule dorsal calcaneal enthesophyte. [facility]: [place] Transcribe Date/Time: Dec 29 2022 2:58P Dictated by : ANNE JAMES MD This examination was interpreted and the report reviewed and electronically signed by: ANNE JAMES MD on Dec 29 2022 2:59PM [facility] DIVISION OF RADIOLOGY * * *Final Report* * * DATE OF EXAM: Dec 24 2022 4:14PM WOX [id number] - XR FOOT 3V AP/LAT/OBL LT / PROCEDURE REASON: Pain in left foot * * * * Physician Interpretation * * * * TITLE: XR FOOT 3V AP/LAT/OBL LT CLINICAL INDICATION: Pain TECHNIQUE: 3 view radiographic study of the left foot COMPARISON: Radiograph dated May 30, 2015 FINDINGS: No acute fracture or dislocation identified. Miniscule dorsal calcaneal enthesophyte. DIVISION OF RADIOLOGY Provider, Divina Holloway - 12/29/2022 * * *Final Report* * * DATE OF EXAM: Dec 24 2022 4:14PM WOX [id number] - XR FOOT 3V AP/LAT/OBL LT / PROCEDURE REASON: Pain in left foot * * * * Physician Interpretation * * * * TITLE: XR FOOT 3V AP/LAT/OBL LT CLINICAL INDICATION: Pain TECHNIQUE: 3 view radiographic study of the left foot COMPARISON: Radiograph dated May 30, 2015 FINDINGS: No acute fracture or dislocation identified. Miniscule dorsal calcaneal enthesophyte. IMPRESSION IMPRESSION: Miniscule dorsal calcaneal enthesophyte. [facility]: [facility] Transcribe Date/Time: Dec 29 2022 2:58P Dictated by : ANNE JAMES MD This examination was interpreted and the report reviewed and electronically signed by: ANNE JAMES MD on Dec 29 2022 2:59PM EST [facility] XR Foot - left AP and Latera l and obliqueOrdered By: Ccf Provider on 12-29-2022 [facility] XR Foot - left AP and Latera l and obliqueon 12-24-2022 Radiology Study observation (narrative) [facility] C. trachomatis+N. gonorrhoea e DNA JEANNA+probe Ql (Unsp spec)on 12-06-2022 C. trachomatis DNA JEANNA+probe Ql (Unsp spec) Negative Negative for Chlamydia trachomatis by amplificaton [facility] N. gonorrhoeae DNA JEANNA+probe Ql (Unsp spec) Negative Negative for Neisseria gonorrhoeae by amplification [facility] HCG QUAL UR B/Oon 12-05-2022 status Negative neg - pos [facility] Quality Check Yes [facility] TOX SCREEN ROUT URon 023 Amphetamines Confirm (U) [Mass/Vol] Negative Negative [facility] Barbiturates Urine Negative Negative [facility] Benzodiazepines Urine Negative Negative [facility] Cannabinoids, Urine Positive Abnormal Negative [facility] Cocaine Ql (U) Negative Negative [facility] Ethanol (U) [Mass/Vol] <11 mg/dL [facility] Opiates Screen Ql (U) Negative Negative [facility] oxyCODONE cutoff Screen (U) [Mass/Vol] Negative Negative [facility] Phencyclidine Ql (U) Negative Negative [facility] UA DIP, URINE (POC)on 2022 BILIRUBIN UA (POCT) Negative Negative [facility] CLARITY UA (POCT) Clear [facility] COLOR UA (POCT) Yellow [facility] GLUCOSE UA (POCT) Negative Negative mg/dL [facility] HEMOGLOBIN/BLOOD UA (POCT) Trace-lysed Abnormal Negative [facility] KETONE UA (POCT) Negative Negative mg/dL [facility] LEUKOCYTES UA (POCT) Negative Negative [facility] NITRITE UA (POCT) Negative Negative [facility] PH UA (POCT) 6.5 4.5 - 8.0 [facility] Protein Ql (U) Negative Negative mg/dL [facility] SPECIFIC GRAVITY UA (POCT) 1.010 1.005 - 1.030 [facility] UROBILINOGEN UA (POCT) 0.2 E.U./dL Normal E.U./dL [facility] Free T4on 08-22-2022 Free T4 [Mass/Vol] 0.31 ng/dL Low 0.61 - 1.12 ng/dL [facility] Comment on above: Updated 04/15/19, Free T4 assays can have false high results when the concentration of biotin in the patient sample is 10 ng/mL or greater. Interpretation and review of laboratory results Abnormal [facility] TSH, High Sensitivityon 12- Interpretation and review of laboratory results Abnormal [facility] TSH Qn 27.54 m[IU]/L High 0.30 - 5.60 u[iU]/mL [facility] CT CHEST WO IVCONon 03-21-20 Radiology Result ACTIONABLE Abnormal [facility] XR CHEST 2V FRONTAL/LATon [facility] XR HAND GENERAL 3V PA/LAT/OB L BILATERALon 03-13-2022 [facility] XR Hand - bilateral PA and L ateral and Obliqueon 03-13-2022 IMPRESSION: Unremarkable bilateral hand x-ray. [facility]: [facility] Transcribe Date/Time: Mar 13 2022 3:26P Dictated by : VANESSA COLÓN MD This examination was interpreted and the report reviewed and electronically signed by: VANESSA COLÓN MD on Mar 13 2022 3:37PM EST [email or web address] E_DIVISION OF RADIOLOGY * * *Final Report* * * DATE OF EXAM: Mar 13 2022 1:36PM WOX [id number] - XR HAND 3V PA/LAT/OBL ELEANOR / PROCEDURE REASON: multiple diagnoses * * * * Physician Interpretation * * * * EXAM TITLE: XR HAND 3V PA/LAT/OBL ELEANOR EXAM DATE/TIME: 03/13/2022 1:36 PM COMPARISON: None. CLINICAL INDICATION/HISTORY: Bilateral hand pain. TECHNIQUE: PA, lateral and oblique views of both hands are presented. FINDINGS: No acute fractures or subluxations are noted. No obvious osteophyte formation. The joint spaces are preserved. The mineralization of the bones is normal. There is no significant soft tissue swelling. [email or web address] E_DIVISION OF RADIOLOGY Provider, [facility] - 03/13/2022 * * *Final Report* * * DATE OF EXAM: Mar 13 2022 1:36PM WOX [id number] - XR HAND 3V PA/LAT/OBL ELEANOR / PROCEDURE REASON: multiple diagnoses * * * * Physician Interpretation * * * * EXAM TITLE: XR HAND 3V PA/LAT/OBL ELEANOR EXAM DATE/TIME: 03/13/2022 1:36 PM COMPARISON: None. CLINICAL INDICATION/HISTORY: Bilateral hand pain. TECHNIQUE: PA, lateral and oblique views of both hands are presented. FINDINGS: No acute fractures or subluxations are noted. No obvious osteophyte formation. The joint spaces are preserved. The mineralization of the bones is normal. There is no significant soft tissue swelling. IMPRESSION IMPRESSION: Unremarkable bilateral hand x-ray. [facility]: [facility] Transcribe Date/Time: Mar 13 2022 3:26P Dictated by : VANESSA COLÓN MD This examination was interpreted and the report reviewed and electronically signed by: VANESSA COLÓN MD on Mar 13 2022 3:37PM EST [facility] Radiology Study observation (narrative) [facility] XR Hand - bilateral PA and L ateral and ObliqueOrdered By: Ccf Provider on 03-13-2022 [facility] SPIROMETRY WITH DILATOR IF O BSTRUCTEDon 01-15-2022 DLCO (ml/min/mmHg) 12.26 ml/min/mmHg [facility] DLCO/VA (ml/min/mmHg/L) 3.30 ml/min/mmHg/L [facility] ERV BOX (L) 1.17 L [facility] BNQ28-19% PRE (L/S) 2.19 L/S [facility] FEV1 PRE (L) 2.17 L [facility] FEV1/FVC PRE (%) 0.80 % [facility] FRC Box (L) 2.40 L [facility] FVC PRE (L) 2.71 L [facility] IC BOX (L) 1.35 L [facility] PEF PRE (L/S) 4.06 L/S [facility] RV Box (L) 1.36 L [facility] RV/TLC Box (%) 36 % [facility] TLC Box (L) 3.80 L [facility] VA (L) 3.71 L [facility] VC (L) BOX 2.56 L [facility] UA DIP, URINE (POC)on 2021 BILIRUBIN UA (POCT) Negative Negative [facility] CLARITY UA (POCT) Clear [facility] COLOR UA (POCT) Yellow [facility] GLUCOSE UA (POCT) Negative Negative mg/dL [facility] HEMOGLOBIN/BLOOD UA (POCT) Small Abnormal Negative [facility] KETONE UA (POCT) Negative Negative mg/dL [facility] LEUKOCYTES UA (POCT) Negative Negative [facility] NITRITE UA (POCT) Negative Negative [facility] PH UA (POCT) 6.0 4.5 - 8.0 [facility] Protein Ql (U) Negative Negative mg/dL [facility] SPECIFIC GRAVITY UA (POCT) <=1.005 Abnormal 1.005 - 1.030 [facility] UROBILINOGEN UA (POCT) 0.2 E.U./dL Normal E.U./dL [facility] No Panel Informationon 12-04 [facility] Absolute lymphocyte counton 11-04-2021 Lymphocytes Auto (Unsp spec) [#/Vol] 4.20 10*3/uL 0.83-4.51 [facility] Work Phone: Basophil percentageon 2021 Basophils/100 WBC (Bld) 0.3 % 0-1 [facility] Work Phone: Bilirubin [Mass/Vol] 0.40 mg/dL 0.20-1.00 [facility] Work Phone: Comment on above: For patients on eltr ombopag therapy, use of Dimension [place] TBIL is not recommended. Chloride [Moles/Vol] 106 mmol/L 98-107 [facility] Work Phone: [phone] Eosinophils/100 WBC (Bld) 1.3 % 0-5 [facility] Work Phone: [phone] Glucose [Mass/Vol] 93 mg/dL 74-106 [facility] Work Phone: [phone] Neutrophils (Bld) [#/Vol] 4.5 10*3/uL 2.0-7.7 [facility] Work Phone: [phone] Neutrophils/100 WBC (Bld) 48.4 % 47-70 [facility] Work Phone: [phone] Potassium [Moles/Vol] 3.5 mmol/L 3.5-5.1 [facility] Work Phone: [phone] Protein [Mass/Vol] 7.1 g/dL 6.4-8.2 [facility] Work Phone: [phone] Sodium [Moles/Vol] 139 mmol/L 136-145 [facility] Work Phone: [phone] WBC (Bld) [#/Vol] 9.3 10*3/uL 4.4-11.0 [facility] Work Phone: Blood erythrocytes count (nu mber/volume)on 11-04-2021 RBC (Bld) [#/Vol] 5.08 10*6/uL 4.2-5.4 [facility] Work Phone: [phone] Blood hemoglobin measurement (mass/volume)on 11-04-2021 Hemoglobin (Bld) [Mass/Vol] 14.3 g/dL 12.0-15.0 [facility] [facility] Work Phone: Blood lymphocytes/100 leukoc yteson 11-04-2021 Lymphocytes/100 WBC (Bld) 45.0 % 19-41 [facility] Work Phone: [phone] Blood monocytes/100 leukocyt eson 11-04-2021 Monocytes/100 WBC (Bld) 4.7 % 0-10 [facility] Work Phone: Blood platelet mean volumeon 11-04-2021 Platelet mean volume (Bld) [Entitic vol] 12.0 fL 6.2-12.0 [facility] Work Phone: Determination of erythrocyte mean corpuscular volume (MCV)on 11-04-2021 MCV (RBC) [Entitic vol] 86.2 fL 81-99 [facility] Work Phone: Hematocrit Auto (Bld) [Volum e fraction]on 11-04-2021 Hematocrit (Bld) [Volume fraction] 43.8 % 37-47 [facility] Work Phone: Laboratory - Chemistry and C hemistry - challengeon 11-04-2021 ALP [Catalytic activity/Vol] 162 U/L 45-117 [facility] Work Phone: ALT [Catalytic activity/Vol] 30 U/L 13-56 [facility] Work Phone: CO2 [Moles/Vol] 28.0 mmol/L 21.0-32.0 [facility] Work Phone: Globulin (S) [Mass/Vol] 3.5 g/dL 2.2-4.2 [facility] Work Phone: Lipase [Catalytic activity/Vol] 90 U/L 73-393 [facility] Work Phone: Urea nitrogen/Creatinine [Mass ratio] 7.1 mg/mg 10-20 [facility] Work Phone: Laboratory - Hematology and Cell countson 11-04-2021 Erythrocyte distribution width (RBC) [Entitic vol] 44.0 fL 35.1-43.9 [facility] Work Phone: Erythrocyte distribution width (RBC) [Ratio] 14.1 % 11.6-14.6 [facility] Work Phone: Immature granulocytes/100 WBC (Bld) 0.300 % 0.0-0.9 [facility] Work Phone: Comment on above: IG% - Immature Granu locytes (promyelocytes, myelocytes and metamyelocytes) > 1% indicates that a LEFT SHIFT is Present. MCH (RBC) [Entitic mass] 28.1 pg 27.0-32.0 [facility] Work Phone: Nucleated RBC/100 WBC (Bld) [Ratio] 0 % 0-5 [facility] Work Phone: MCHC Auto (RBC) [Mass/Vol]on 11-04-2021 MCHC (RBC) [Mass/Vol] 32.6 g/dL 32-36 [facility] Work Phone: No Panel Informationon 11-04 D-Dimer Quantitative (PE/DVT) 0.31 FEU/ug/m 0.27-0.49 [facility] Work Phone: Comment on above: NORMAL D-Dimer level (<0.50) indicates no DVT or PE. Estimated Creatinine Clearance Calc 78.07 ml/min [facility] Work Phone: Estimated GFR (MDRD) Amer 77 mL/min >60 [facility] Work Phone: Comment on above: GFR Calc Estimated GFR (MDRD) Non-Af Amer 64 mL/min >60 [facility] Work Phone: Comment on above: Non- GFR Calc Troponin I High Sensitivity 8 pg/mL 3.0-54.0 [facility] Work Phone: Comment on above: Please Note: New [place] t Units and Gender Specific Reference Ranges. For more information see Policy Stat Procedure [place] High Sensitivity Troponin (TNIH) and attachments. Platelets bldon 11-04-2021 Platelets (Bld) [#/Vol] 233 10*3/uL 150-450 [facility] Work Phone: Serum or plasma albumin farhan urement (mass/volume)on 11-04-2021 Albumin [Mass/Vol] 3.6 g/dL 3.2-5.0 [facility] Work Phone: Serum or plasma albumin/glob ulin mass ratioon 11-04-2021 Albumin/Globulin [Mass ratio] 1.0 {ratio} 0.9-2.4 [facility] Work Phone: Serum or plasma calcium farhan urement (mass/volume)on 11-04-2021 Calcium [Mass/Vol] 9.4 mg/dL 8.5-10.1 [facility] Work Phone: Serum or plasma creatinine m easurement (mass/volume)on 11-04-2021 Creatinine [Mass/Vol] 0.98 mg/dL 0.55-1.02 [facility] Work Phone: Comment on above: The validity of the calculated GFR & GFRAA in patients over 70 years has not been determined. Clinical correlation is essential. Serum or plasma urea nitroge n measurement (mass/volume)on 11-04-2021 Urea nitrogen [Mass/Vol] 7 mg/dL 7-18 [facility] Work Phone: Thin prep Papanicolaou smear with manual screeningon 11-04-2021 Thin prep Papanicolaou smear with manual screening 31 U/L 15-37 [facility] Work Phone: Thin prep Papanicolaou smear with manual screening 5 5-15 [facility] Work Phone: XR CHOLANGIOGRAM INTRAOPon 0 04-27-2020 Cholesterol [Mass/Vol] Final Report DATE OF EXAM: Apr 27 2020 8:00PM LDX 5421 - XR CHOLANGIOGRAM INTRAOP / PROCEDURE REASON: Abnormal Biliary Hida scan Physician Interpretation EXAM TITLE: INTRAOPERATIVE CHOLANGIOGRAM COMPARISON: CT abdomen and pelvis 03/06/2020 CLINICAL INDICATION/HISTORY: The patient is a 50-year-old female with an abnormal biliary HIDA scan. TECHNIQUE: 2 spot films from an intraoperative cholangiogram are presented for interpretation. Fluoroscopy radiation summary: Fluoroscopy time: 0:05 (min:sec). Air kerma: No Dose Reported. FINDINGS: There is excellent opacification of the cystic duct, common bile duct, intrahepatic biliary radicles, and duodenum. There is no filling defect, stricture, dilation, mucosal abnormality, or extrinsic compression. IMPRESSION: No significant abnormality on intraoperative cholangiogram. [facility]: [facility] Transcribe Date/Time: Apr 29 2020 7:57A Dictated by : DAVID HERNÁNDEZ MD This examination was interpreted and the report reviewed and electronically signed by: DAVID HERNÁNDEZ MD on Apr 29 2020 8:01AM EST Normal [facility] Surgical Tissue Examon 04-26 Surgical Tissue Exam Test performed at [place] [address] NAME: KEVIN POST REQUESTING: ROSARIO LUKE MD FINAL DIAGNOSIS: GALLBLADDER (LAPAROSCOPIC CHOLECYSTECTOMY) - CHRONIC CHOLECYSTITIS. OPERATIVE PROCEDURE: Laparoscopic cholecystectomy with cholangiogram CLINICAL INFORMATION: Abnormal biliary HIDA scan GROSS DESCRIPTION: Gallbladder Received in formalin labeled gallbladder is a gallbladder measuring 7 x 2.3 x 2 cm. The serosa is cazares, smooth and glistening. A defect is not present. The lumen contains moderate green viscous bile. No calculi are present within the lumen or container. The mucosa is green and velvety. Sectioning reveals a wall thickness of 0.2 cm. Palpation does not reveal a palpable lymph node. Filleter sections are submitted in 1 cassette. SHABBIR/tima HORTON M.D. (Electronic signature on file) Signed out: 05/01/2020 17:18 PRINTED: 05/01/2020 Page 1 of 1 Normal [facility] Comment on above: Performed By: #### S URG #### [place] [address] Coronavirus 2019on 0 COVID 19 Result 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 Negative Normal [facility] Comment on above: Result Comment: Nega tive for COVID19 (SARS CoV2) by PCR. This test was developed and its performance characteristics determined by [facility] Pathology and Laboratory Medicine [place]. This test has been authorized by FDA under an Emergency Use Authorization (EUA). This test has been validated in accordance with the FDA's Guidance Document Policy for Diagnostics Testing in Laboratories Certified to Perform High Complexity Testing under CLIA prior to Emergency use Authorization for Coronavirus Disease 2019 during the Public Health Emergency issued on October 22, 2019. Performing Laboratory: [facility] [address] [place] [address] Performed By: #### C [id number] #### [facility] [address] [place] [id number] Vital Signs Date Time Vital Sign Value Performing Clinician Surendra travis 04-06-2025 10:51-0400 Body mass index (BMI) [Ratio] 29.33 kg/m2 Stefan Felix CORPORATE CONSULTANT.VINEYARDIST Work Phone: [facility] 04-06-2025 10:51-0400 Body temperature 98.1 [degF] Stefan Felix CORPORATE CONSULTANT.VINEYARDIST Work Phone: [facility] 04-06-2025 10:51-0400 Body weight 65.86 kg Stefan Felix CORPORATE CONSULTANT.VINEYARDIST Work Phone: [facility] 04-06-2025 10:51-0400 Diastolic blood pressure 82 mm[Hg] Stefan Felix CORPORATE CONSULTANT.VINEYARDIST Work Phone: [facility] 04-06-2025 10:51-0400 Heart rate 90 /min Stefan Felix CORPORATE CONSULTANT.VINEYARDIST Work Phone: [facility] 04-06-2025 10:51-0400 SaO2% (BldA) [Mass fraction] 98 % Stefan Felix CORPORATE CONSULTANT.VINEYARDIST Work Phone: [facility] 04-06-2025 10:51-0400 Systolic blood pressure 124 mm[Hg] Stefan Felix CORPORATE CONSULTANT.VINEYARDIST Work Phone: [facility] 03-07-2025 11:55-0400 Body mass index (BMI) [Ratio] 29.69 kg/m2 Gabriel Alcantara DO Work Phone: [facility] 03-07-2025 11:55-0400 Body temperature 97.11 [degF] Gabriel Alcantara DO Work Phone: [facility] 03-07-2025 11:55-0400 Body weight 66.68 kg Gabriel Alcantara DO Work Phone: [facility] 03-07-2025 11:55-0400 Diastolic blood pressure 80 mm[Hg] Gabriel Alcantara DO Work Phone: [facility] 03-07-2025 11:55-0400 Heart rate 75 /min Gabriel Alcantara DO Work Phone: [facility] 03-07-2025 11:55-0400 Respiratory rate 16 /min Gabriel Alcantara DO Work Phone: [facility] 03-07-2025 11:55-0400 Systolic blood pressure 116 mm[Hg] Gabriel Alcantara DO Work Phone: [facility] 11-04-2024 13:27-0400 Body temperature 98.01 [degF] Mary Suppan CORPORATE CONSULTANT.VINEYARDIST Work Phone: [facility] 11-04-2024 13:27-0400 Diastolic blood pressure 64 mm[Hg] Mary Suppan CORPORATE CONSULTANT.VINEYARDIST Work Phone: [facility] 11-04-2024 13:27-0400 Heart rate 84 /min Mary Suppan CORPORATE CONSULTANT.VINEYARDIST Work Phone: [facility] 11-04-2024 13:27-0400 SaO2% (BldA) [Mass fraction] 97 % Mary Suppan CORPORATE CONSULTANT.VINEYARDIST Work Phone: [facility] 11-04-2024 13:27-0400 Systolic blood pressure 114 mm[Hg] Mary Suppan CORPORATE CONSULTANT.VINEYARDIST Work Phone: [facility] 09-13-2024 10:13-0500 Body mass index (BMI) [Ratio] 32.24 kg/m2 Stefan Washington CORPORATE CONSULTANT.VINEYARDIST Work Phone: [facility] 09-13-2024 10:13-0500 Body weight 72.39 kg Stefan Washington CORPORATE CONSULTANT.VINEYARDIST Work Phone: [facility] 09-13-2024 10:13-0500 Diastolic blood pressure 68 mm[Hg] Stefan Felix CORPORATE CONSULTANT.VINEYARDIST Work Phone: [facility] 09-13-2024 10:13-0500 Heart rate 83 /min Stefan Felix CORPORATE CONSULTANT.VINEYARDIST Work Phone: [facility] 09-13-2024 10:13-0500 Respiratory rate 16 /min Stefan Felix CORPORATE CONSULTANT.VINEYARDIST Work Phone: [facility] 09-13-2024 10:13-0500 SaO2% (BldA) [Mass fraction] 98 % Stefan Felix CORPORATE CONSULTANT.VINEYARDIST Work Phone: [facility] 09-13-2024 10:13-0500 Systolic blood pressure 112 mm[Hg] Stefan Felix CORPORATE CONSULTANT.VINEYARDIST Work Phone: [facility] 04-08-2024 09:42-0400 Body mass index (BMI) [Ratio] 33.93 kg/m2 Mary Suppan CORPORATE CONSULTANT.VINEYARDIST Work Phone: [facility] 04-08-2024 09:42-0400 Body temperature 97.81 [degF] Mary Suppan CORPORATE CONSULTANT.VINEYARDIST Work Phone: [facility] 04-08-2024 09:42-0400 Body weight 76.2 kg Mary Suppan CORPORATE CONSULTANT.VINEYARDIST Work Phone: [facility] 04-08-2024 09:42-0400 Diastolic blood pressure 64 mm[Hg] Mary Suppan CORPORATE CONSULTANT.VINEYARDIST Work Phone: [facility] 04-08-2024 09:42-0400 Heart rate 72 /min Mary Suppan CORPORATE CONSULTANT.VINEYARDIST Work Phone: [facility] 04-08-2024 09:42-0400 Systolic blood pressure 104 mm[Hg] Mary Suppan CORPORATE CONSULTANT.VINEYARDIST Work Phone: [facility] 10-28-2023 11:13-0500 Body weight 75.3 kg Stefan Felix CORPORATE CONSULTANT.VINEYARDIST Work Phone: [facility] 10-28-2023 11:13-0500 Diastolic blood pressure 80 mm[Hg] Stefan Felix CORPORATE CONSULTANT.VINEYARDIST Work Phone: [facility] 10-28-2023 11:13-0500 Heart rate 72 /min Stefan Felix CORPORATE CONSULTANT.VINEYARDIST Work Phone: [facility] 10-28-2023 11:13-0500 Respiratory rate 16 /min Stefan Felix CORPORATE CONSULTANT.VINEYARDIST Work Phone: [facility] 10-28-2023 11:13-0500 Systolic blood pressure 108 mm[Hg] Stefan Felix CORPORATE CONSULTANT.VINEYARDIST Work Phone: [facility] 07-20-2023 11:27-0500 Body height 149.9 cm Stefan Felix CORPORATE CONSULTANT.VINEYARDIST Work Phone: [facility] 07-20-2023 11:27-0500 Body temperature 98.01 [degF] Stefan Felix CORPORATE CONSULTANT.VINEYARDIST Work Phone: [facility] 07-20-2023 11:27-0500 Body weight 69.85 kg Stefan Felix CORPORATE CONSULTANT.VINEYARDIST Work Phone: [facility] 07-20-2023 11:27-0500 Diastolic blood pressure 56 mm[Hg] Stefan Felix CORPORATE CONSULTANT.VINEYARDIST Work Phone: [facility] 07-20-2023 11:27-0500 Heart rate 75 /min Stefan Felix CORPORATE CONSULTANT.VINEYARDIST Work Phone: [facility] 07-20-2023 11:27-0500 Respiratory rate 12 /min Steafn Felix CORPORATE CONSULTANT.VINEYARDIST Work Phone: [facility] 07-20-2023 11:27-0500 SaO2% (BldA) [Mass fraction] 98 % Stefan Felix CORPORATE CONSULTANT.VINEYARDIST Work Phone: [facility] 07-20-2023 11:27-0500 Systolic blood pressure 112 mm[Hg] Stefan Felix CORPORATE CONSULTANT.VINEYARDIST Work Phone: [facility] 04-22-2023 15:31-0400 Body weight 64.14 kg Miranda Delarosa CORPORATE CONSULTANT.VINEYARDIST Work Phone: [facility] 04-22-2023 15:31-0400 Diastolic blood pressure 60 mm[Hg] Miranda Delarosa CORPORATE CONSULTANT.VINEYARDIST Work Phone: [facility] 04-22-2023 15:31-0400 Heart rate 68 /min Miranda Delarosa CORPORATE CONSULTANT.VINEYARDIST Work Phone: [facility] 04-22-2023 15:31-0400 Respiratory rate 12 /min Miranda Delarosa CORPORATE CONSULTANT.VINEYARDIST Work Phone: [facility] 04-22-2023 15:31-0400 Systolic blood pressure 102 mm[Hg] Miranda Delarosa CORPORATE CONSULTANT.VINEYARDIST Work Phone: [facility] 02-17-2023 07:43-0400 Body height 155 cm Gabriel Alcantara DO Work Phone: [facility] 02-17-2023 07:43-0400 Body temperature 96.49 [degF] Gabriel Alcantara DO Work Phone: [facility] 02-17-2023 07:43-0400 Body weight 67.13 kg Gabriel Alcantara DO Work Phone: [facility] 02-17-2023 07:43-0400 Diastolic blood pressure 76 mm[Hg] Gabriel Alcantara DO Work Phone: [facility] 02-17-2023 07:43-0400 Heart rate 64 /min Gabriel Alcantara DO Work Phone: [facility] 02-17-2023 07:43-0400 Respiratory rate 16 /min Gabriel Alcantara DO Work Phone: [facility] 02-17-2023 07:43-0400 Systolic blood pressure 124 mm[Hg] Gabriel Alcantara DO Work Phone: [facility] 02-04-2023 10:11-0400 Body temperature 97.3 [degF] Nel Podlogar CORPORATE CONSULTANT.VINEYARDIST Work Phone: [facility] 02-04-2023 10:11-0400 Body weight 67.59 kg Nel Podlogar CORPORATE CONSULTANT.VINEYARDIST Work Phone: [facility] 02-04-2023 10:11-0400 Diastolic blood pressure 64 mm[Hg] Nel Podlogar CORPORATE CONSULTANT.VINEYARDIST Work Phone: [facility] 02-04-2023 10:11-0400 Heart rate 88 /min Nel Podlogar CORPORATE CONSULTANT.VINEYARDIST Work Phone: [facility] 02-04-2023 10:11-0400 Respiratory rate 18 /min Nel Podlogar CORPORATE CONSULTANT.VINEYARDIST Work Phone: [facility] 02-04-2023 10:11-0400 SaO2% (BldA) [Mass fraction] 97 % Nel Podlogar CORPORATE CONSULTANT.VINEYARDIST Work Phone: [facility] 02-04-2023 10:11-0400 Systolic blood pressure 106 mm[Hg] Nel Podlogar CORPORATE CONSULTANT.VINEYARDIST Work Phone: [facility] 12-24-2022 09:44-0400 Body weight 70.31 kg Stefan Felix CORPORATE CONSULTANT.VINEYARDIST Work Phone: [facility] 12-24-2022 09:44-0400 Diastolic blood pressure 70 mm[Hg] Stefan Felix CORPORATE CONSULTANT.VINEYARDIST Work Phone: [facility] 12-24-2022 09:44-0400 Heart rate 79 /min Stefan Felix CORPORATE CONSULTANT.VINEYARDIST Work Phone: [facility] 12-24-2022 09:44-0400 Respiratory rate 16 /min Stefan Felix CORPORATE CONSULTANT.VINEYARDIST Work Phone: [facility] 12-24-2022 09:44-0400 SaO2% (BldA) [Mass fraction] 97 % Stefan Felix CORPORATE CONSULTANT.VINEYARDIST Work Phone: [facility] 12-24-2022 09:44-0400 Systolic blood pressure 102 mm[Hg] Stefan Felix CORPORATE CONSULTANT.VINEYARDIST Work Phone: [facility] 12-05-2022 11:00-0400 Body weight 67.44 kg Stefan Felix CORPORATE CONSULTANT.VINEYARDIST Work Phone: [facility] 12-05-2022 11:00-0400 Diastolic blood pressure 76 mm[Hg] Stefan Felix CORPORATE CONSULTANT.VINEYARDIST Work Phone: [facility] 12-05-2022 11:00-0400 Heart rate 95 /min Stefan Felix CORPORATE CONSULTANT.VINEYARDIST Work Phone: [facility] 12-05-2022 11:00-0400 Respiratory rate 18 /min Stefan Felix CORPORATE CONSULTANT.VINEYARDIST Work Phone: [facility] 12-05-2022 11:00-0400 SaO2% (BldA) [Mass fraction] 98 % Stefan Felix CORPORATE CONSULTANT.VINEYARDIST Work Phone: [facility] 12-05-2022 11:00-0400 Systolic blood pressure 120 mm[Hg] Stefan Felix CORPORATE CONSULTANT.VINEYARDIST Work Phone: [facility] 11-28-2022 20:21-0400 Body temperature 97.1 [degF] [facility] 11-28-2022 20:21-0400 Diastolic blood pressure 70 mm[Hg] [facility] 11-28-2022 20:21-0400 Heart rate 98 /min [facility] 11-28-2022 20:21-0400 Respiratory rate 16 /min [facility] 11-28-2022 20:21-0400 SaO2% (BldA) [Mass fraction] 99 % [facility] 11-28-2022 20:21-0400 Systolic blood pressure 110 mm[Hg] [facility] 11-28-2022 20:08-0400 Body height 149.86 cm [facility] 11-28-2022 20:08-0400 Body mass index (BMI) [Ratio] 29.5 kg/m2 [facility] 11-28-2022 20:08-0400 Body weight 66.22 kg [facility] 03-13-2022 12:09-0400 Body weight 61.74 kg Stefan Felix CORPORATE CONSULTANT.VINEYARDIST Work Phone: [facility] 03-13-2022 12:09-0400 Diastolic blood pressure 58 mm[Hg] Stefan Felix CORPORATE CONSULTANT.VINEYARDIST Work Phone: [facility] 03-13-2022 12:09-0400 Heart rate 75 /min Stefantheodore Washington CORPORATE CONSULTANT.VINEYARDIST Work Phone: [facility] 03-13-2022 12:09-0400 Respiratory rate 16 /min Stefan Felix CORPORATE CONSULTANT.VINEYARDIST Work Phone: [facility] 03-13-2022 12:09-0400 SaO2% (BldA) [Mass fraction] 98 % Stefantheodore Allredman CORPORATE CONSULTANT.VINEYARDIST Work Phone: [facility] 03-13-2022 12:09-0400 Systolic blood pressure 90 mm[Hg] Stefan Felix CORPORATE CONSULTANT.VINEYARDIST Work Phone: [facility] 02-27-2022 13:42-0400 Body height 149.86 cm [facility] Work Phone: 02-27-2022 13:42-0400 Body mass index (BMI) [Ratio] 27.6 kg/m2 [facility] Work Phone: 02-27-2022 13:42-0400 Body temperature 96.8 [degF] [facility] Work Phone: 02-27-2022 13:42-0400 Body weight 62.14 kg [facility] Work Phone: 02-27-2022 13:42-0400 Diastolic blood pressure 56 mm[Hg] [facility] Work Phone: 02-27-2022 13:42-0400 Heart rate 89 /min [facility] Work Phone: 02-27-2022 13:42-0400 Respiratory rate 16 /min [facility] Work Phone: 02-27-2022 13:42-0400 SaO2% (BldA) [Mass fraction] 98 % [facility] Work Phone: 02-27-2022 13:42-0400 Systolic blood pressure 126 mm[Hg] [facility] Work Phone: 02-13-2022 15:06-0400 Body weight 62.6 kg Lizbeth Mistry MD Work Phone: [facility] 02-13-2022 15:06-0400 Diastolic blood pressure 60 mm[Hg] Lizbeth Mistry MD Work Phone: [facility] 02-13-2022 15:06-0400 Heart rate 74 /min Lizbeth Mistry MD Work Phone: [facility] 02-13-2022 15:06-0400 Respiratory rate 18 /min Lizbeth Mistry MD Work Phone: [facility] 02-13-2022 15:06-0400 SaO2% (BldA) [Mass fraction] 99 % Lizbeth Mistry MD Work Phone: [facility] 02-13-2022 15:06-0400 Systolic blood pressure 106 mm[Hg] Lizbeth Mistry MD Work Phone: [facility] 01-15-2022 11:21-0400 Body height 151.9 cm Respiratory Wstr Work Phone: [facility] 01-15-2022 11:21-0400 Body weight 67.13 kg Respiratory Wstr Work Phone: [facility] 01-14-2022 13:30-0400 Body height 149.9 cm Jerri Sands PA-C Work Phone: [facility] 01-14-2022 13:30-0400 Body temperature 97.7 [degF] Jerri Wicho PA-C Work Phone: [facility] 01-14-2022 13:30-0400 Body weight 68.22 kg Jerri Sands PA-C Work Phone: [facility] 01-14-2022 13:30-0400 Diastolic blood pressure 86 mm[Hg] Jerri Watkinsf PA-C Work Phone: [facility] 01-14-2022 13:30-0400 Heart rate 86 /min Jerri Sands PA-C Work Phone: [facility] 01-14-2022 13:30-0400 SaO2% (BldA) [Mass fraction] 98 % Jerri Sands PA-C Work Phone: [facility] 01-14-2022 13:30-0400 Systolic blood pressure 138 mm[Hg] Jerri Sands PA-C Work Phone: [facility] 01-10-2022 11:31-0400 Body height 149.86 cm [facility] Work Phone: 01-10-2022 11:31-0400 Body mass index (BMI) [Ratio] 30.2 kg/m2 [facility] Work Phone: 01-10-2022 11:31-0400 Body temperature 98.7 [degF] [facility] Work Phone: 01-10-2022 11:31-0400 Body weight 68.03 kg [facility] Work Phone: 01-10-2022 11:31-0400 Diastolic blood pressure 110 mm[Hg] [facility] Work Phone: 01-10-2022 11:31-0400 Heart rate 99 /min [facility] Work Phone: 01-10-2022 11:31-0400 Respiratory rate 18 /min [facility] Work Phone: 01-10-2022 11:31-0400 SaO2% (BldA) [Mass fraction] 95 % [facility] Work Phone: 01-10-2022 11:31-0400 Systolic blood pressure 147 mm[Hg] [facility] Work Phone: 01-09-2022 14:10-0400 Body weight 68.49 kg NA Templeton PA-C Work Phone: [facility] 01-09-2022 14:10-0400 Diastolic blood pressure 68 mm[Hg] NA Templeton PA-C Work Phone: [facility] 01-09-2022 14:10-0400 Heart rate 88 /min NA Templeton PA-C Work Phone: [facility] 01-09-2022 14:10-0400 SaO2% (BldA) [Mass fraction] 94 % NA Templeton PA-C Work Phone: [facility] 01-09-2022 14:10-0400 Systolic blood pressure 116 mm[Hg] NA Templeton PA-C Work Phone: [facility] 12-19-2021 16:12-0400 Body height 149.86 cm [facility] Work Phone: 12-19-2021 16:12-0400 Body mass index (BMI) [Ratio] 30.1 kg/m2 [facility] Work Phone: 12-19-2021 16:12-0400 Body temperature 98 [degF] [facility] Work Phone: 12-19-2021 16:12-0400 Body weight 67.58 kg [facility] Work Phone: 12-19-2021 16:12-0400 Diastolic blood pressure 78 mm[Hg] [facility] Work Phone: 12-19-2021 16:12-0400 Heart rate 98 /min [facility] Work Phone: 12-19-2021 16:12-0400 Respiratory rate 16 /min [facility] Work Phone: 12-19-2021 16:12-0400 SaO2% (BldA) [Mass fraction] 98 % [facility] Work Phone: 12-19-2021 16:12-0400 Systolic blood pressure 142 mm[Hg] [facility] Work Phone: 11-11-2021 09:22-0400 Body temperature 98.29 [degF] Geeta Laska CORPORATE CONSULTANT.VINEYARDIST Work Phone: [facility] 11-11-2021 09:22-0400 Body weight 70.31 kg Geeta Laska CORPORATE CONSULTANT.VINEYARDIST Work Phone: [facility] 11-11-2021 09:22-0400 Diastolic blood pressure 60 mm[Hg] Geeta Laska CORPORATE CONSULTANT.VINEYARDIST Work Phone: [facility] 11-11-2021 09:22-0400 Heart rate 61 /min Geeta Laska CORPORATE CONSULTANT.VINEYARDIST Work Phone: [facility] 11-11-2021 09:22-0400 Respiratory rate 16 /min Geeta Laska CORPORATE CONSULTANT.VINEYARDIST Work Phone: [facility] 11-11-2021 09:22-0400 SaO2% (BldA) [Mass fraction] 97 % Geeta Laska CORPORATE CONSULTANT.VINEYARDIST Work Phone: [facility] 11-11-2021 09:22-0400 Systolic blood pressure 94 mm[Hg] Geeta Laska CORPORATE CONSULTANT.VINEYARDIST Work Phone: [facility] 11-04-2021 21:31-0400 Heart rate 52 /min [facility] Work Phone: 11-04-2021 21:31-0400 Respiratory rate 18 /min [facility] Work Phone: 11-04-2021 19:52-0400 Body mass index (BMI) [Ratio] 31.7 kg/m2 [facility] Work Phone: 11-04-2021 19:52-0400 Body temperature 97.2 [degF] [facility] Work Phone: 11-04-2021 19:52-0400 Body weight 71.21 kg [facility] Work Phone: 11-04-2021 19:52-0400 Diastolic blood pressure 82 mm[Hg] [facility] Work Phone: 11-04-2021 19:52-0400 SaO2% (BldA) [Mass fraction] 98 % [facility] Work Phone: 11-04-2021 19:52-0400 Systolic blood pressure 142 mm[Hg] [facility] Work Phone: 09-13-2021 14:02-0500 Body mass index (BMI) [Ratio] 31.7 kg/m2 [facility] Work Phone: 09-13-2021 14:02-0500 Body temperature 97.3 [degF] [facility] Work Phone: 09-13-2021 14:02-0500 Body weight 71.3 kg [facility] Work Phone: 09-13-2021 14:02-0500 Diastolic blood pressure 73 mm[Hg] [facility] Work Phone: 09-13-2021 14:02-0500 Heart rate 79 /min [facility] Work Phone: 09-13-2021 14:02-0500 Respiratory rate 16 /min [facility] Work Phone: 09-13-2021 14:02-0500 SaO2% (BldA) [Mass fraction] 97 % [facility] Work Phone: 09-13-2021 14:02-0500 Systolic blood pressure 127 mm[Hg] [facility] Work Phone: Encounters Encounter Date Encounter Type Care Provider Facility Start: 04-06-2025 End: [facility] Start: 04-06-2025 End: 04-06-2025 Office outpatient visit 25 minutes Stefan Washington CORPORATE CONSULTANT.VINEYARDIST Work Phone: [facility] [place] Comment on above: Acute cystitis with hematuria (Primary Dx); Burning with urination; Pelvic pain; Lower abdominal pain; Microscopic hematuria; Proteinuria, unspecified type Start: 03-21-2025 End: 03-21-2025 Refill Gabriel L Alcantara DO Work Phone: [facility] [place] Comment on above: Refill Request Start: 03-16-2025 End: 03-22-2025 Follow-up encounter Miranda Silvanikkie SHANNON.VINEYARDIST Work Phone: [facility] [place] Comment on above: Results Start: 03-16-2025 End: 03-16-2025 Telephone encounter Gabriel L Alcantara DO Work Phone: [facility] [place] Comment on above: Results, Lab Start: 03-13-2025 End: 03-13-2025 ambulatory GABRIEL L ALCANTARA Facility:[facility] Start: 03-07-2025 End: 03-07-2025 Patient encounter procedure Gabriel L Alcantara DO Work Phone: [facility] [place] Comment on above: IFG (impaired fastin g glucose) (Primary Dx); Encounter for screening mammogram for malignant neoplasm of breast; Screening for colon cancer; Encounter for screening for osteoporosis; Asymptomatic postmenopausal status; Dyslipidemia; Other specified hypothyroidism; Dyspareunia in female; Overweight with body mass index (BMI) of 29 to 29.9 in adult; Tobacco use Start: 03-07-2025 End: 03-07-2025 ambulatory SELF Facility:[facility] Start: 02-20-2025 End: 02-22-2025 Refill Gabriel L Alcantara DO Work Phone: [facility] [place] Comment on above: Refill Request Start: 01-27-2025 End: 01-27-2025 Refill Gabriel L Alcantara DO Work Phone: [facility] [place] Comment on above: Refill Request Start: 01-12-2025 End: 01-12-2025 ambulatory ОЛЬГА WHITAKER Facility:[facility] Start: 12-29-2024 End: 12-30-2024 Telephone encounter Gabriel Alcantara DO Work Phone: [facility] [place] Comment on above: Letter Start: 12-26-2024 End: 12-27-2024 Telephone encounter Gabriel Markhamon DO Work Phone: [facility] [place] Comment on above: Prior Authorization Request Start: 12-05-2024 End: 12-05-2024 Refill Gabriel Alcantara DO Work Phone: [facility] [place] Comment on above: Refill Request Start: 11-29-2024 End: 11-29-2024 Refill Gabriel Markhamon DO Work Phone: [facility] [place] Comment on above: Refill Request Start: 11-16-2024 End: 11-16-2024 Refill Gabriel Markhamon DO Work Phone: [facility] [place] Comment on above: Refill Request Start: 11-07-2024 End: 01-07-2025 Follow-up encounter Mary Subramanian CORPORATE CONSULTANT.VINEYARDIST Work Phone: [facility] [place] Comment on above: Results Start: 11-04-2024 End: 11-04-2024 Office outpatient visit 15 minutes Mary Subramanian CORPORATE CONSULTANT.VINEYARDIST Work Phone: [facility] [place] Comment on above: Urinary frequency (P rimary Dx) Start: 11-04-2024 End: 11-04-2024 Refill Stefan Washington CORPORATE CONSULTANT.VINEYARDIST Work Phone: [facility] [place] Comment on above: Refill Request Start: 11-03-2024 End: 11-03-2024 Telephone encounter Gabriel Markhamon DO Work Phone: [facility] [place] Comment on above: Faxed to [facility] Start: 11-01-2024 End: 11-01-2024 Refill Gabriel Markhamon DO Work Phone: [facility] [place] Comment on above: Refill Request Start: 10-28-2024 End: 10-28-2024 Telephone encounter Gabriel Alcantara DO Work Phone: [facility] [place] Start: 10-18-2024 End: 10-18-2024 ambulatory GABRIEL ALCANTARA Facility:[facility] Start: 09-14-2024 End: 09-19-2024 Telephone encounter Stefan Washington APRN.VINEYARDIST Work Phone: [facility] [place] Comment on above: Results Start: 09-13-2024 End: 11-08-2024 Telephone encounter Gabriel Alcantara DO Work Phone: [facility] [place] Start: 09-13-2024 End: 09-13-2024 ambulatory [facility] Facility:[facility] Start: 09-13-2024 End: 09-13-2024 Office outpatient visit 40 minutes Stefan Washington APRN.VINEYARDIST Work Phone: [facility] [place] Comment on above: Well adult exam (Marsha luz Dx); Other specified hypothyroidism; COPD with chronic bronchitis (HCC); Dyslipidemia; IFG (impaired fasting glucose); Marijuana use; Prurigo nodularis; Acute cough; Encounter for immunization; Encounter for screening examination for other mental health and behavioral disorders; Screening for colon cancer Start: 09-13-2024 End: 09-13-2024 Patient encounter status Stefan Washington APRN.VINEYARDIST Work Phone: [facility] Work Phone: Start: 09-13-2024 End: 09-13-2024 ambulatory STEFAN WASHINGTON Facility:[facility] Start: 09-13-2024 Encounter for genera l adult medical examination without abnormal findings STEFAN WASHINGTON [facility] Start: 09-08-2024 End: 09-09-2024 Refill Gabriel Alcantara DO Work Phone: [facility] [place] Comment on above: Refill Request Start: 09-07-2024 End: 09-07-2024 Refill Gabriel Alcantara DO Work Phone: [facility] [place] Comment on above: Refill Request Start: 09-06-2024 End: 09-06-2024 [facility] Start: 08-10-2024 End: 08-10-2024 Refill Jerrialysia Whitaker PT Work Phone: Dermatology Comment on above: Refill Request Start: 07-14-2024 End: 07-14-2024 Specialty Pharmacy Amelia Oreilly [facility] Comment on above: SPP Inflammatory Con ditions - Medication Refill (Dupixent) Start: 07-06-2024 End: 07-11-2024 ambulatory Gabriel Alcantara DO Work Phone: Internal Medicine [place] [id number] Start: 06-23-2024 End: 06-23-2024 Specialty Pharmacy Amelia Oreilly [facility] Comment on above: SPP Inflammatory Con ditions - Medication Refill (Dupixent) Start: 06-22-2024 End: 06-22-2024 Refill Ольга Whitaker PA-C Work Phone: Dermatology Start: 06-16-2024 End: 06-16-2024 Refill Gabriel Alcantara DO Work Phone: [facility] Comment on above: Refill Request Start: 05-11-2024 End: 05-11-2024 ambulatory [facility] Facility:[facility] Start: 04-21-2024 End: 04-21-2024 Refill Ольга Whitaker PA-C Work Phone: [facility] Comment on above: Refill Request Start: 04-20-2024 End: 04-20-2024 Patient encounter status Gabriel Alcantara DO Work Phone: [facility] Start: 04-20-2024 End: 04-20-2024 ambulatory Amelia Oreilly [facility] Comment on above: SPP Inflammatory Con ditions - Discontinuation (Dupixent) Refill Request Start: 04-19-2024 End: 04-19-2024 Refill Ольга Whitaker PA-C Work Phone: Dermatology Comment on above: Refill Request Start: 04-12-2024 End: 04-12-2024 Refill Gabriel Alcantara DO Work Phone: [facility] [place] Comment on above: Opened In Error Start: 04-11-2024 End: 04-11-2024 Telephone encounter Mary Subramanian CORPORATE CONSULTANT.VINEYARDIST Work Phone: [facility] [place] Comment on above: Results Start: 04-08-2024 End: 04-08-2024 Office outpatient visit 15 minutes Mary Subramanian APRN.VINEYARDIST Work Phone: [facility] [place] Comment on above: Dysuria (Primary Dx) ; Abrasion, elbow w/o infection Start: 04-01-2024 Telephone encounter Gabriel cavazos DO Work Phone: [facility] [place] Comment on above: Orders Refill Request Start: 03-29-2024 Refill Gabriel lundy DO Work Phone: [facility] [place] Comment on above: Erroneous encounter- disregard Start: 03-23-2024 Patient encounter status Christiano javier Alcantara DO Work Phone: [facility] Start: 03-23-2024 Telephone encounter Gabriel cavazos DO Work Phone: [facility] [place] Comment on above: medcation refills/me ds no longer on Start: 03-09-2024 Specialty Pharmacy Amelia Oreilly [facility] Comment on above: SPP Inflammatory Con ditions - Medication Refill (Dupixent - [facility] 01/2024) Start: 02-26-2024 Refill Gabriel lundy DO Work Phone: [facility] [place] Comment on above: Refill Request Start: 02-17-2024 Refill Gabriel lundy DO Work Phone: [facility] [place] Comment on above: Refill Request Start: 01-26-2024 Refill Ca Regan Work Phone: Dermatology Comment on above: Refill Request Start: 01-26-2024 Refill Miranda Delarosa APRN.VINEYARDIST Work Phone: [facility] [place] Comment on above: Refill Request Start: 01-13-2024 Patient encounter status Aviva Washington CORPORATE CONSULTANT.VINEYARDIST Work Phone: [facility] Work Phone: Start: 01-13-2024 Refill Gabriel lundy DO Work Phone: [facility] [place] Comment on above: Refill Request Lab Orders Start: 01-01-2024 Refill Gabriel lundy DO Work Phone: [facility] [place] Comment on above: Refill Request Start: 12-29-2023 [facility] Comment on above: SPP Inflammatory Con ditions - Medication Refill (Dupixent ) Start: 12-04-2023 Refill Gabriel lundy DO Work Phone: [facility] [place] Comment on above: Refill Request Start: 11-25-2023 Refill Gabriel lundy DO Work Phone: [facility] [place] Comment on above: Refill Request Start: 11-17-2023 [facility] Comment on above: SPP Inflammatory Con ditions - Medication Refill (Dupixent) Start: 10-28-2023 End: 10-28-2023 Patient encounter procedure Stefan Washington MIRTHA.VINEYARDIST Work Phone: [facility] [place] Comment on above: UTI symptoms (Primar y Dx); Urinary frequency; Frequent urination; Screening for colon cancer Start: 10-27-2023 ambulatory Luz Garcia RN NURSE [employer]KER Comment on above: UTI Start: 10-20-2023 [facility] Comment on above: SPP Inflammatory Con ditions - Medication Refill (Dupixent) Start: 10-14-2023 Patient encounter status Christiano Alcantara DO Work Phone: [facility] Start: 10-14-2023 Refill Gabriel lundy DO Work Phone: [facility] [place] Comment on above: Refill Request Start: 09-29-2023 Refill Gabriel lundy DO Work Phone: [facility] [place] Comment on above: Refill Request Start: 09-22-2023 ambulatory DOROTHEA~[id number] [facility] Start: 08-04-2023 ambulatory Amelia [facility] Start: 08-04-2023 End: 08-04-2023 Patient encounter procedure Ca Arvizu PA-C Work Phone: Dermatology Comment on above: Prurigo nodularis (P rimary Dx) SPP Inflammatory Con ditions - Treatment Referral (Dupixent); Insurance Authorization ([place] Submission Pending) Start: 07-29-2023 ambulatory Gabriel lundy DO Work Phone: [facility] [place] Start: 07-20-2023 End: 07-20-2023 Patient encounter procedure Stefan Washington CORPORATE CONSULTANT.VINEYARDIST Work Phone: [facility] [place] Comment on above: Dysuria (Primary Dx) ; Fatigue, unspecified type; COPD with chronic bronchitis; Neck pain on left side; Acute cystitis with hematuria; Marijuana use Start: 07-01-2023 ambulatory DOROTHEA~[id number] G NAUN IBANEZ [facility] Start: 04-23-2023 Telephone encounter Evert Clifford Work Phone: Podiatry Comment on above: Orders Start: 04-22-2023 End: 04-22-2023 Patient encounter procedure Miranda Delarosa CORPORATE CONSULTANT.VINEYARDIST Work Phone: [facility] [place] Comment on above: Left wrist pain (Marsha luz Dx) Start: 04-21-2023 End: 04-21-2023 Patient encounter procedure Evert Rosa Work Phone: Podiatry Comment on above: Pain in joint involv ing ankle and foot, unspecified laterality (Primary Dx); Arthritis of midfoot; Posterior tibial tendon dysfunction; Callus of foot Start: 03-25-2023 Refill Gabriel Perales son DO Work Phone: [facility] [place] Comment on above: Refill Request Start: 03-24-2023 Refill Gabriel Perales son DO Work Phone: [facility] Comment on above: Refill Request Start: 02-26-2023 End: 02-26-2023 Subsequent hospital visit by physician Alexsandra [facility] (I-Stat) Work Phone: Cat Scan Comment on above: Subacute cough [R05. 2] Start: 02-17-2023 End: 02-17-2023 Patient encounter procedure Gabriel Alcantara DO Work Phone: [facility] Comment on above: Routine physical exa mination (Primary Dx); Other specified hypothyroidism; Fatigue, unspecified type; Dyslipidemia; Vitamin D deficiency; Need for pneumococcal 20-valent conjugate vaccination; Subacute cough; SOB (shortness of breath); Tobacco use; Marijuana use Start: 02-17-2023 End: 02-17-2023 Physical examination Gabriel Alcantara DO Work Phone: [facility] [place] Start: 02-04-2023 Telephone encounter Nel redmond APRN.VINEYARDIST Work Phone: [facility] Comment on above: Results Start: 02-04-2023 End: 02-04-2023 Subsequent hospital visit by physician Amie [facility] [place] Work Phone: Radiology Comment on above: Acute cough [R05.1] Start: 02-04-2023 End: 02-04-2023 Patient encounter procedure Nel Pino APRN.VINEYARDIST Work Phone: [facility] Comment on above: Acute cough (Primary Dx); COPD with chronic bronchitis (HCC) Start: 01-28-2023 Orders Only Evert merlos Work Phone: Podiatry Comment on above: Pain in right foot ( Primary Dx) Start: 12-31-2022 Telephone encounter Gabriel cavazos DO Work Phone: [facility] Comment on above: Patient Update Start: 12-24-2022 End: 12-24-2022 Subsequent hospital visit by physician Amie [facility] [place] Work Phone: Radiology Comment on above: Pain in left foot [M 79.672] Start: 12-24-2022 End: 12-24-2022 Patient encounter procedure Stefan Washington CORPORATE CONSULTANT.VINEYARDIST Work Phone: [facility] Comment on above: Foot pain, left (Marsha luz Dx); Lesion of face; Recreational drug use; Skin lesion Start: 12-22-2022 Telephone encounter Maria Del Carmen Coleman MD Work Phone: OB/Gynecology Comment on above: Patient Update Start: 12-16-2022 Telephone encounter Evert Clifford Work Phone: Podiatry Comment on above: Left foot pain Start: 12-10-2022 Telephone encounter Stefantheodore [place] CORPORATE CONSULTANT.VINEYARDIST Work Phone: [facility] Comment on above: Orders Start: 12-08-2022 Patient encounter status Christiano Alcantara DO Work Phone: [facility] Start: 12-08-2022 Telephone encounter Stefan [place] CORPORATE CONSULTANT.VINEYARDIST Work Phone: [facility] Comment on above: Results Refill Request Start: 12-05-2022 End: 12-05-2022 Patient encounter procedure Stefan Washington CORPORATE CONSULTANT.VINEYARDIST Work Phone: [facility] Comment on above: Urinary frequency (P rimary Dx); Possible exposure to STD; Marijuana use; Recreational drug use; Lesion of face; Female genital lesion Start: 11-28-2022 End: 11-28-2022 Emergency department patient visit [facility] Start: 09-26-2022 ambulatory [id number] Deb MENCHACA [facility] Start: 08-27-2022 ambulatory Gabriel Perales son DO Work Phone: Internal Medicine [facility] [place] Start: 08-22-2022 End: 08-22-2022 Subsequent hospital visit by physician Dorothea Ibanez 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 Work 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: [facility] Comment on above: Hyperthyroidism Start: 07-15-2022 Refill Gabriel Perales son DO Work Phone: [facility] Comment on above: Refill Request Start: 06-16-2022 Refill Gabriel lundy DO Work Phone: [facility] [place] Comment on above: Refill Request Start: 06-11-2022 Patient encounter status Christiano Alcantara DO Work Phone: [facility] [place] Start: 06-11-2022 Refill Gabriel lundy DO Work Phone: [facility] [place] Comment on above: Refill Request Start: 05-21-2022 Refill Gabriel lundy DO Work Phone: [facility] [place] Comment on above: Refill Request Start: 04-18-2022 End: 04-18-2022 Patient encounter procedure Evert Rosa Work Phone: Podiatry Comment on above: Callus of foot (Prim claudia Dx); Onychomycosis Start: 04-09-2022 Telephone encounter Gabriel cavazos DO Work Phone: [facility] [place] Comment on above: Patient Question; Colon EGD [facility] Start: 03-27-2022 Telephone encounter Gabriel cavazos DO Work Phone: [facility] [place] Comment on above: Patient Question Start: 03-25-2022 Telephone encounter Lizbeth Mistry MD Work Phone: Pulmonary Medicine Comment on above: Results (Chest CT) Start: 03-21-2022 End: 03-21-2022 Subsequent hospital visit by physician Ct [facility] (I-Stat) Work Phone: Cat Scan Comment on above: Abnormal diffusion c apacity determined by pulmonary function test [R94.2] SOB (shortness of br eath) [R06.02] Start: 03-13-2022 Telephone encounter Stefan [place] APRN.CNP Work Phone: [facility] [place] Comment on above: Results Start: 03-13-2022 End: 03-13-2022 Subsequent hospital visit by physician Xr [facility] [place] Work Phone: Radiology Comment on above: Numbness and tinglin g in both hands [R20.0, R20.2] Start: 03-13-2022 End: 03-13-2022 Patient encounter procedure Stefan Felix OGDENN.VINEYARDIST Work Phone: [facility] Comment on above: Numbness and tinglin g in both hands (Primary Dx) Start: 03-05-2022 Patient encounter status Christiano Alcantara DO Work Phone: [facility] Start: 03-05-2022 Refill Gabriel lundy DO Work Phone: [facility] Comment on above: Refill Request Start: 02-27-2022 End: 02-27-2022 Patient encounter procedure [facility], [facility] Start: 02-27-2022 Refill Miranda Jarvistorsten jarek CORPORATE CONSULTANT.VINEYARDIST Work Phone: [facility] Comment on above: Refill Request Start: 02-27-2022 Refill Gabriel lundy DO Work Phone: [facility] Comment on above: Refill Request Start: 02-27-2022 End: 02-27-2022 Emergency department patient visit [facility]Emergency Department Start: 02-17-2022 Orders Only Lizbeth Mistry MD Work Phone: Pulmonary Medicine Comment on above: SOB (shortness of br eath) (Primary Dx) Abnormal diffusion c apacity determined by pulmonary function test (Primary Dx); Dyspnea and respiratory abnormalities Start: 02-13-2022 End: 02-13-2022 Patient encounter procedure Lizbeth Mistry MD Work Phone: Pulmonary Medicine Comment on above: Mild intermittent as thma without complication (Primary Dx); Abnormal diffusion capacity determined by pulmonary function test; Cigarette smoker; Thrush Start: 01-15-2022 Telephone encounter Lizbeth Mistry MD Work Phone: Pulmonary Medicine Comment on above: Results Patient Question Start: 01-15-2022 End: 01-15-2022 ambulatory Respiratory Therapist [facility] Work Phone: Pulmonary Medicine Comment on above: Spirometry Start: 01-15-2022 End: 01-15-2022 Patient encounter procedure Respiratory Therapist [facility] Work Phone[facility] Start: 01-14-2022 Telephone encounter Jerri quiñones PA-C Work Phone: General Surgery Comment on above: 04-11-2022 COLON EGD [facility] Start: 01-14-2022 End: 01-14-2022 Patient encounter procedure Jerri Sands PA-C Work Phone: General Surgery Comment on above: Encounter for screen ing for malignant neoplasm of colon (Primary Dx); Gastroesophageal reflux disease, unspecified whether esophagitis present; Dysphagia, unspecified type Start: 01-10-2022 End: 01-10-2022 [facility] Start: 01-09-2022 End: 01-09-2022 Patient encounter procedure Emanuel Slaughter Jareth SCOTT Work Phone: [facility] Comment on above: Asthma with COPD wit h exacerbation (HCC) (Primary Dx); Stress incontinence of urine Start: 01-02-2022 Refill Gabriel Perales son DO Work Phone: [facility] Comment on above: Refill Request Start: 12-31-2021 Refill Gabriel lundy DO Work Phone: [facility] Comment on above: Prescription Refills Start: 12-19-2021 End: 12-19-2021 [facility] Start: 12-05-2021 Telephone encounter Gabriel cavazos DO Work Phone: [facility] Comment on above: Appointment Cancelle d Start: 12-04-2021 Telephone encounter Stefan [place] APRN.CNP Work Phone: [facility] Comment on above: Results Start: 12-04-2021 End: 12-04-2021 Subsequent hospital visit by physician [facility] Work Phone: Radiology Comment on above: Alkaline phosphatase elevation [R74.8] Start: 11-29-2021 Telephone encounter Gabriel cavazos DO Work Phone: Family Medicine [place] Comment on above: Results Start: 11-12-2021 Telephone encounter Geeta acevedo CORPORATE CONSULTANT.VINEYARDIST Work Phone: [place] [employer] [facility] Comment on above: Results; Geraldo Start: 11-11-2021 End: 11-11-2021 Patient encounter procedure Geeta Chow CORPORATE CONSULTANT.VINEYARDIST Work Phone: [place] [employer] [facility] Comment on above: Vaginal itching (Marsha luz Dx); Vaginal discharge Start: 11-04-2021 End: 11-04-2021 Emergency department patient visit [facility] Start: 09-13-2021 End: 09-13-2021 Emergency department patient visit [facility] Procedures Date Procedure Procedure Detail Performing Clinician Start: 04-06-2025 Urnls dip stick/tabl et rgnt auto w/o microscopy Stefan Washington CORPORATE CONSULTANT.VINEYARDIST Work Phone: Start: 11-04-2024 Urnls dip stick/tabl et rgnt auto w/o microscopy Mary A Suppan CORPORATE CONSULTANT.VINEYARDIST Work Phone: Start: 09-13-2024 Lipid 1995 panel - S rishabh or Plasma Stefan Washington CORPORATE CONSULTANT.VINEYARDIST Work Phone: Start: 04-08-2024 Urnls dip stick/tabl et rgnt auto w/o microscopy Mary A Suppan CORPORATE CONSULTANT.VINEYARDIST Work Phone: Start: 04-08-2024 Lipid 1995 panel - S rishabh or Plasma Mary Suppan CORPORATE CONSULTANT.VINEYARDIST Work Phone: Start: 10-28-2023 Urnls dip stick/tabl et rgnt auto w/o microscopy Stefan Washington CORPORATE CONSULTANT.VINEYARDIST Work Phone: Start: 08-25-2023 Lipid 1995 panel - S rishabh or Plasma Gabriel Alcantara DO Work Phone: Start: 07-20-2023 Culture bacterial quanttative colony count urine Stefan Washington CORPORATE CONSULTANT.VINEYARDIST Work Phone: Start: 07-20-2023 Urnls dip stick/tabl et rgnt auto w/o microscopy [facility] CORPORATE CONSULTANT.VINEYARDIST Work Phone: Start: 02-26-2023 Ct thorax w/o contra st material Gabriel Alcantara DO Work Phone: Start: 02-17-2023 Lipid 1996 panel - S rishabh or Plasma Ct (I-Stat) Work Phone: Start: 02-04-2023 Radiologic exam ches t 2 views Nel Podlogar CORPORATE CONSULTANT.VINEYARDIST Work Phone: Start: 12-24-2022 Radex foot complete minimum 3 views Evert Rosa Work Phone: Start: 12-05-2022 Drug tst prsmv instr mnt chem analyzers pr date [facility] CORPORATE CONSULTANT.[facility] Work Phone: Start: 12-05-2022 Iadna chlamydia trac homatis amplified probe tq [facility] CORPORATE CONSULTANT.VINEYARDIST Work Phone: Start: 12-05-2022 End: 12-05-2022 Urnls dip stick/tablet rgnt auto w/o microscopy [facility] CORPORATE CONSULTANT.[facility] Work Phone: Start: 08-22-2022 Thyroxine (T4) free [Mass/volume] in Serum or Plasma Dorothea Ibanez NP Work Phone: Start: 08-22-2022 TSH, HIGH SENSITIVITY J jazmin Ibanez 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 Work Phone: Start: 03-21-2022 Radiologic exam ches t 2 views Lizbeth Mistry MD Work Phone: Start: 03-21-2022 Ct thorax w/o contra st material Lizbeth Mistry MD Work Phone: Start: 03-13-2022 Radex hand minimum 3 views [facility] CORPORATE CONSULTANT.VINEYARDIST Work Phone: Start: 02-27-2022 X-ray of cervical spine Start: 02-27-2022 Radiography of ankle Start: 01-15-2022 Brncdilat rspse spmt ry pre&post-brncdilat admn M Sukhjinder Templeton PA-C Work Phone: Start: 01-09-2022 Urnls dip stick/tabl et rgnt auto w/o microscopy M Sukhjinder Templeton PA-C Work Phone: Start: 12-04-2021 Us abdominal real ti me w/image limited Gabriel L Alcantara DO Work Phone: Start: 11-04-2021 Plain chest X-ray Start: 09-13-2021 X-ray of chest posteroanterior view Start: 08-22-2020 Mammography Geeta Las ka CORPORATE CONSULTANT.VINEYARDIST Work Phone: Plan of Treatment Date Care Activity Detail Author Start: 09-13-2029 Lipid panel Lipid Screening [facility] Start: 04-08-2029 Lipid panel Lipid Screening [facility] Start: 08-25-2028 Lipid panel Lipid Screening [facility] Start: 03-13-2028 [facility] Start: 02-18-2028 Lipid 1996 panel - S rishabh or Plasma Lipid Screening [facility] Start: 02-18-2028 Lipid panel Lipid Screening [facility] Start: 02-18-2028 LIPID SCREEN LIPID SCREEN [facility] Start: 12-06-2027 HPV TESTING HPV TESTING [facility] Start: 12-06-2027 PAP TESTING PAP TESTING [facility] Start: 12-06-2027 Screening for malign ant neoplasm of cervix [facility] Start: 09-13-2027 Diabetes Screening [facility] Start: 08-05-2027 LIPID SCREEN LIPID SCREEN [facility] Start: 04-08-2027 Diabetes Screening [facility] Start: 09-23-2026 LIPID SCREEN LIPID SCREEN [facility] Start: 08-25-2026 Diabetes Screening Diabetes Screenin g [facility] Start: 04-06-2026 Annual PCP Team Matrix Inspector cassandra Disease Visit Annual PCP Team Chronic Disease Visit [facility] Start: 03-07-2026 Annual PCP Team Matrix Inspector cassandra Disease Visit Annual PCP Team Chronic Disease Visit [facility] Start: 02-17-2026 DIABETES SCREEN [facility]ES SCREEN [facility] Start: 02-17-2026 Diabetes Screening Diabetes Screenin g [facility] Start: 11-04-2025 Annual PCP Team Matrix Inspector cassandra Disease Visit Annual PCP Team Chronic Disease Visit [facility] Start: 09-13-2025 Annual PCP Team Matrix Inspector cassandra Disease Visit Annual PCP Team Chronic Disease Visit [facility] Start: 09-13-2025 Anxiety Screening Anxiety Screening [facility] Start: 09-13-2025 Covid-19 Vaccine ( season) Covid-19 Vaccine () [facility] Comment on above: Postponed from 04/24 (Declined at this time) Start: 09-13-2025 Hepatitis B Vaccine (1 of 3 - 19+ 3-dose series) Hepatitis B Vaccine (1 of 3 - 19+ 3-dose series) [facility] Comment on above: Postponed from 03/26 (Declined at this time) Start: 09-13-2025 Shingrix Vaccine (1 of 2) Ramirez grix Vaccine (1 of 2) [facility] Comment on above: Postponed from 03/26 (Declined at this time) Start: 09-13-2025 Urine microalbumin profile DTaP,Tdap,Td Vaccine (3 - Td or Tdap) [facility] Comment on above: Postponed from 03/30 (Declined at this time) Start: 06-09-2025 End: 06-09-2025 Patient encounter procedure 06/09/2025 11:15 AM EDT Appointment Radiology [address] [place] [address] Encounter for screening for osteoporosis [Z13.820]; Asymptomatic postmenopausal status [Z78.0] Radiology Comment on above: Encounter for screen ing for osteoporosis [Z13.820]; Asymptomatic postmenopausal status [Z78.0] Start: 05-19-2025 End: 05-19-2025 Patient encounter procedure 05/19/2025 3:00 PM EDT Office Visit Dermatology [address] [place] [address] Ольга Whitaker, PA-C [address] [place] [address] Prurigo Nodularis follow up Dermatology Comment on above: Prurigo Nodularis fo llow up Start: 05-04-2025 PAP TESTING PAP TESTING [facility] Start: 04-24-2025 Influenza vaccination [facility] Start: 04-20-2025 End: 07-20-2025 Thyrotropin [Units/volume] in Serum or Plasma THYROID STIMULATING HORMONE Lab Routine Hypothyroidism, unspecified type Expected: 04/20/2025, Expires: 07/20/2025 [facility] Work Phone: Comment on above: Expected: 04/20/2025 , Expires: 07/20/2025 Start: 04-20-2025 End: 04-20-2025 Patient encounter procedure 04/20/2025 11:00 AM EDT Office Visit [facility] [place] [address] [place], [place] [id number] Stefan Washington APRN.VINEYARDIST [address] [place], [place] [phone] pap test [facility] Comment on above: pap test Start: 04-13-2025 End: 04-13-2025 Patient encounter procedure 04/13/2025 2:20 PM EDT Office Visit Dermatology [address] [place] [address] Ольга Whitaker PA-C [address] [place] [address] 3 months follow up Dermatology Comment on above: 3 months follow up Start: 04-11-2025 End: 04-11-2025 Patient encounter procedure 04/11/2025 9:15 AM EDT Appointment Ambulatory Surgery [address] [place], [place] [phone] Rosario Luke MD [address] [place] [phone] Screening for colon cancer [Z12.11] Ambulatory Surgery Comment on above: Screening for colon cancer [Z12.11] Start: 04-10-2025 End: 04-10-2025 Patient encounter procedure 04/10/2025 12:50 PM EDT Appointment Mammogram [address] [place] [address] Dx: Encounter for screening mammogram for malignant neoplasm of breast [Z12.31] Mammogram Comment on above: Dx: Encounter for sc reening mammogram for malignant neoplasm of breast [Z12.31] Start: 04-08-2025 Annual PCP Team Matrix Inspector cassandra Disease Visit Annual PCP Team Chronic Disease Visit [facility] Start: 03-16-2025 End: 03-16-2025 Patient encounter procedure 03/16/2025 4:20 PM EDT Office Visit Dermatology [address] [place] [address] Ольга Whitaker PA-C [address] [place] [address] Prurigo Nodularis follow up Dermatology Comment on above: Prurigo Nodularis fo llow up Start: 03-15-2025 End: 03-15-2025 Patient encounter procedure 03/15/2025 1:10 PM EDT Appointment Mammogram [address] [place] [address] Encounter for screening mammogram for malignant neoplasm of breast [Z12.31] Mammogram Comment on above: Encounter for screen ing mammogram for malignant neoplasm of breast [Z12.31] Start: 03-07-2025 End: 06-06-2025 CBC W Auto Differential panel - Blood COMPLETE BLOOD COUNT AND DIFFERENTIAL Lab Routine IFG (impaired fasting glucose) Dyslipidemia Expected: 03/07/2025, Expires: 06/06/2025 [facility] Comment on above: Expected: 03/07/2025 , Expires: 06/06/2025 Start: 03-07-2025 End: 06-06-2025 Comprehensive metabolic 2000 panel - Serum or Plasma COMPREHENSIVE METABOLIC PANEL Lab Routine IFG (impaired fasting glucose) Dyslipidemia Expected: 03/07/2025, Expires: 06/06/2025 [facility] Comment on above: Expected: 03/07/2025 , Expires: 06/06/2025 Start: 03-07-2025 End: 06-06-2025 Hemoglobin A1c in Blood HEMOGLOBIN A1C Lab Routine IFG (impaired fasting glucose) Expected: 03/07/2025, Expires: 06/06/2025 [facility] Comment on above: Expected: 03/07/2025 , Expires: 06/06/2025 Start: 03-07-2025 End: 06-06-2025 Thyrotropin [Units/volume] in Serum or Plasma THYROID STIMULATING HORMONE Lab Routine Other specified hypothyroidism Expected: 03/07/2025, Expires: 06/06/2025 [facility] Comment on above: Expected: 03/07/2025 , Expires: 06/06/2025 Start: 03-07-2025 End: 03-07-2025 Patient encounter procedure 03/07/2025 12:00 PM EDT Office Visit [facility] [place] [address] [place], [place] [phone] Gabriel Alcantara DO [address] [place], [place] [phone] 6 mo follow up [facility] Comment on above: 6 mo follow up Start: 02-20-2025 Influenza vaccination Influenza Vacc ine (#1) [facility] Comment on above: Postponed from 04/24 (Declined at this time) Start: 01-12-2025 End: 01-12-2025 Patient encounter procedure 01/12/2025 2:20 PM EDT Office Visit Dermatology [address] [place] [address] Ольга Whitaker PA-C [address] [place] [address] Skin Exam - Annual Full Body Dermatology Comment on above: Skin Exam - Annual F ull Body Start: 01-03-2025 End: 01-03-2025 Patient encounter procedure 01/03/2025 2:00 PM EDT Office Visit [facility] [address] [place] [address] Kayla Corral, CORPORATE CONSULTANT.VINEYARDIST [address] [place], [place] [phone] annual [facility] Comment on above: annual Start: 11-27-2024 DIABETES SCREEN DIABETES SCREEN [facility] Start: 11-14-2024 End: 02-13-2025 Bacteria identified in Urine by Culture BACTERIAL CULTURE, URINE Microbiology Routine Recurrent UTI (urinary tract infection) Expected: 11/14/2024, Expires: 02/13/2025 [facility] Work Phone: Comment on above: Expected: 11/14/2024 , Expires: 02/13/2025 Start: 10-27-2024 Annual PCP Team Matrix Inspector cassandra Disease Visit Annual PCP Team Chronic Disease Visit [facility] Start: 10-18-2024 End: 10-18-2024 Specialty Pharmacy 10/18/2024 8:00 AM EST Specialty Pharmacy [facility] [place], [place] [phone] Pharmacist, [facility] [address] [place] [phone] REFILL - Dupixent - *PAx 10/28/23, need OV notes for renewal, OV 09/2024 - ND 07/22 - attempted to call pt 07/14, 07/22, 07/27 [facility] Comment on above: REFILL - Dupixent - *PAx 10/28/23, need OV notes for renewal, OV 09/2024 - ND 07/22 - attempted to call pt 07/14, 07/22, 07/27 Start: 10-17-2024 End: 10-17-2024 Patient encounter procedure 10/17/2024 1:20 PM EST Office Visit Dermatology [address] [place] [address] Albertina Guevara, MIRTHA.VINEYARDIST [address] [place] [address] prigo nodularus Dermatology Comment on above: prigo nodularus Start: 09-23-2024 DIABETES SCREEN DIABETES SCREEN [facility] Start: 09-13-2024 End: 12-13-2024 Comprehensive metabolic 2000 panel - Serum or Plasma [facility] Comment on above: Expected: 09/13/2024 , Expires: 12/13/2024 Start: 09-13-2024 End: 12-13-2024 Hemoglobin A1c in Blood [facility] Comment on above: Expected: 09/13/2024 , Expires: 12/13/2024 Start: 09-13-2024 End: 12-13-2024 Lipid 1996 panel - Serum or Plasma [facility] Comment on above: Expected: 09/13/2024 , Expires: 12/13/2024 Start: 09-13-2024 End: 12-13-2024 Thyrotropin [Units/volume] in Serum or Plasma [facility] Work Phone: Comment on above: Expected: 09/13/2024 , Expires: 12/13/2024 Start: 09-13-2024 End: 12-13-2024 Thyroxine (T4) free [Mass/volume] in Serum or Plasma [facility] Comment on above: Expected: 09/13/2024 , Expires: 12/13/2024 Start: 09-13-2024 End: 09-13-2024 Patient encounter procedure 09/13/2024 10:00 AM EST Office Visit [facility] [place] [address] [place], [place] [address] Stefan Washington, MIRTHA.VINEYARDIST [address] [facility] [place] [address] 6 month follow up-reschedule from 09/06/2024 [facility] Comment on above: 6 month follow up-re schedule from 09/06/2024 Start: 09-08-2024 End: 09-08-2024 Patient encounter procedure 09/08/2024 11:20 AM EST Office Visit [facility] [address] [place] [address] Stefan Washington, MIRTHA.VINEYARDIST [address] [place] [address] 6 month follow up-reschedule from 09/06/2024 Family [facility] Comment on above: 6 month follow up-re schedule from 09/06/2024 Start: 08-31-2024 Annual PCP Team Matrix Inspector cassandra Disease Visit Annual PCP Team Chronic Disease Visit [facility] Start: 08-31-2024 End: 08-31-2024 Specialty Pharmacy 08/31/2024 8:00 AM EST Specialty Pharmacy [facility] [id number] [place] [address] Pharmacist, [facility] [address] [place] [phone] REFILL - Dupixent - *PAx 10/28/23, need OV notes for renewal, OV 09/2024 - ND 07/22 - attempted to call pt 07/14, 07/22, 07/27 [facility] Comment on above: REFILL - Dupixent - *PAx 10/28/23, need OV notes for renewal, OV 09/2024 - ND 07/22 - attempted to call pt 07/14, 07/22, 07/27 Start: 08-21-2024 Hepatitis B Vaccine (1 of 3 - 19+ 3-dose series) Hepatitis B Vaccine (1 of 3 - 19+ 3-dose series) [facility] Comment on above: Postponed from 03/26 (Declined at this time) Start: 08-21-2024 Hepatitis B Vaccine (1 of 3 - 3-dose series) Hepatitis B Vaccine (1 of 3 - 3-dose series) [facility] Comment on above: Postponed from 03/26 (Declined at this time) Start: 08-11-2024 End: 08-11-2024 Patient encounter procedure 08/11/2024 1:00 PM EST Office Visit [facility] [address] [place] [address] Stefan Washington APRN.VINEYARDIST [address] [place], [place] [address] 6 mo follow up [facility] Comment on above: 6 mo follow up Start: 07-20-2024 Annual PCP Team Matrix Inspector cassandra Disease Visit Annual PCP Team Chronic Disease Visit [facility] Start: 07-18-2024 End: 07-18-2024 Specialty Pharmacy 07/18/2024 7:45 AM EST Specialty Pharmacy [facility] [address] [place] [address] [place] [address] Pharmacist, [facility] [address] [place] [address] [place] [address] REFILL - Dupixent - *PAx 10/28/23, sub renewal after OV 07/15, so we can use those notes - 07/22 - attempted to call pt 07/14 [facility] Comment on above: REFILL - Dupixent - *PAx 10/28/23, sub renewal after OV 07/15, so we can use those notes - 07/22 - attempted to call pt 07/14 Start: 07-15-2024 End: 07-15-2024 Patient encounter procedure 07/15/2024 2:00 PM EST Office Visit Dermatology [address] [place] [address] Ольга Whitaker PA-C [address] [place], [place] [phone] prigo nodularus Dermatology Comment on above: prigo nodularus Start: 07-13-2024 End: 07-13-2024 Patient encounter procedure 07/13/2024 10:40 AM EST Office Visit [facility] [place] [address] [place], [place] [phone] Stefan Washington APRN.VINEYARDIST [address] [place], [place] [phone] physical [facility] [place] Comment on above: physical Start: 07-12-2024 End: 07-12-2024 Specialty Pharmacy 07/12/2024 8:00 AM EST Specialty Pharmacy [facility] [address] [place], [place] [id number] [place] [address] Pharmacist, [facility] [address] [place] [address] [place] [address] REFILL - Dupixent - *PAx 10/28/23, sub renewal after OV 07/15, so we can use those notes - 07/22 [facility] Comment on above: REFILL - Dupixent - *PAx 10/28/23, sub renewal after OV 07/15, so we can use those notes - ND 07/22 Start: 07-01-2024 End: 07-01-2024 Patient encounter procedure 07/01/2024 9:20 AM EST Office Visit [facility] [address] [place] [address] Stefan Washington, MIRTHA.VINEYARDIST [address] [place] [address] physical [facility] [place] Comment on above: physical Start: 05-18-2024 End: 05-18-2024 Patient encounter procedure 05/18/2024 11:20 AM EDT Office Visit [facility] [address] [place] [address] Stefan Washington, CORPORATE CONSULTANT.VINEYARDIST [address] [place] [address] reschedule [facility] Comment on above: reschedule Start: 04-29-2024 End: 04-29-2024 Patient encounter procedure 04/29/2024 10:40 AM EDT Office Visit [facility] [address] [place] [address] Gabriel Alcantara, [address] [place] [address] 6 month follow up [facility] Comment on above: 6 month follow up Start: 04-24-2024 Covid-19 Vaccine ( season) Covid-19 Vaccine ( season) [facility] Start: 04-24-2024 Covid-19 Vaccine ( season) Covid-19 Vaccine ( season) [facility] Start: 04-24-2024 Influenza vaccination [facility] Start: 04-22-2024 ANNUAL PCP TEAM INSPECTOR PLATING CASSANDRA DISEASE VISIT ANNUAL PCP TEAM CHRONIC DISEASE VISIT [facility] Start: 04-22-2024 SHINGRIX VACCINE (1 of 2) RAMIREZ GRIX VACCINE (1 of 2) [facility] Comment on above: Postponed from 03/26 (Declined at this time) Start: 04-22-2024 Urine microalbumin profile [facility] Comment on above: Postponed from 03/30 (Declined at this time) Start: 04-20-2024 End: 04-20-2024 Specialty Pharmacy 04/20/2024 8:15 AM EDT Specialty Pharmacy [facility] [address] [place] [address] Pharmacist, [facility] [address] [place] [address] [place] [address] REFILL - Dupixent. PAx 10/28/23 [NCA 02/14] - 04/29 *pt is currently in fdc, can call [phone] to coordinate refill* - Pending Refill Request [facility] Comment on above: REFILL - Dupixent. P Ax 10/28/23 [NCA 02/14] - 04/29 *pt is currently in fdc, can call [phone] to coordinate refill* - Pending Refill Request Start: 04-19-2024 End: 04-19-2024 Specialty Pharmacy 04/19/2024 8:00 AM EDT Specialty Pharmacy [facility] [address] [place] [id number] Pharmacist, [facility] [address] [place] [address] [place] [address] REFILL - Dupixent. PAx 10/28/23 [NCA 02/14] - 04/29 *pt is currently in fdc, can call [phone] to coordinate refill* [facility] Comment on above: REFILL - Dupixent. P Ax 10/28/23 [NCA 02/14] - 04/29 *pt is currently in fdc, can call [phone] to coordinate refill* Start: 03-30-2024 End: 03-30-2024 Specialty Pharmacy 03/30/2024 8:00 AM EDT Specialty Pharmacy [facility] [address] [place] [address] [id number] [place] [address] Pharmacist, [facility] [address] [place] [address] [place] [address] REFILL - Dupixent. PAx 10/28/23 [NCA 02/14] - 02/04 *patient does not have a working phone, she will have to call us* [facility] Comment on above: REFILL - Dupixent. P Ax 10/28/23 [NCA 02/14] - 02/04 *patient does not have a working phone, she will have to call us* Start: 03-02-2024 End: 03-02-2024 Specialty Pharmacy 03/02/2024 8:00 AM EDT Specialty Pharmacy [facility] [address] [place], [place] [id number] [place] [address] Pharmacist, [facility] [address] [place] [address] [place] [address] REFILL - Dupixent. PAx 10/28/23 [NCA 02/14] - 02/04 *patient does not have a working phone, she will have to call us* [facility] Comment on above: REFILL - Dupixent. P Ax 10/28/23 [NCA 02/14] - 02/04 *patient does not have a working phone, she will have to call us* Start: 02-27-2024 Influenza vaccination LUNG CANCER [facility] Start: 02-26-2024 End: 02-26-2024 Patient encounter procedure 02/26/2024 11:00 AM EDT Office Visit Dermatology [address] [place] [id number] Sheyla Ramirez, CORPORATE CONSULTANT.VINEYARDIST [address] [place] [address] rash follow up Dermatology Comment on above: rash follow up Start: 02-24-2024 End: 02-24-2024 Specialty Pharmacy 02/24/2024 8:00 AM EDT Specialty Pharmacy [facility] [address] [place], [place] [id number] [place] [address] Pharmacist, [facility] [address] [place] [address] [place] [address] REFILL - Dupixent. PAx 10/28/23 [NCA 02/14] - 02/04 *patient does not have a working phone, she will have to call us* [facility] Comment on above: REFILL - Dupixent. P Ax 10/28/23 [NCA 02/14] - 02/04 *patient does not have a working phone, she will have to call us* Start: 02-23-2024 End: 02-23-2024 Patient encounter procedure 02/23/2024 10:40 AM EDT Office Visit [facility] [address] [place], [place] [address] Stefan Washington APRN.VINEYARDIST [address] [place], [place] [address] 6m f/u [facility] [place] Comment on above: 6m f/u Start: 02-21-2024 Influenza vaccination Influenza Vacc ine (#1) [facility] Comment on above: Postponed from 04/24 (Declined at this time) Start: 02-18-2024 ANNUAL PCP TEAM INSPECTOR PLATING CASSANDRA DISEASE VISIT ANNUAL PCP TEAM CHRONIC DISEASE VISIT [facility] Start: 02-18-2024 COVID-19 VACCINE (#1) COVID-19 VACCI NE (#1) [facility] Comment on above: Postponed from 09/26 (Declined at this time) Start: 02-13-2024 End: 05-14-2024 CBC panel - Blood by Automated count COMPLETE BLOOD COUNT Lab Routine Well adult exam IFG (impaired fasting glucose) Expected: 02/13/2024, Expires: 05/14/2024 [facility] Work Phone: Comment on above: Expected: 02/13/2024 , Expires: 05/14/2024 Start: 02-13-2024 End: 05-14-2024 Comprehensive metabolic 2000 panel - Serum or Plasma COMPREHENSIVE METABOLIC PANEL Lab Routine Well adult exam IFG (impaired fasting glucose) Expected: 02/13/2024, Expires: 05/14/2024 [facility] Comment on above: Expected: 02/13/2024 , Expires: 05/14/2024 Start: 02-13-2024 End: 05-14-2024 Hemoglobin A1c in Blood HEMOGLOBIN A1C Lab Routine Well adult exam IFG (impaired fasting glucose) Expected: 02/13/2024, Expires: 05/14/2024 [facility] Comment on above: Expected: 02/13/2024 , Expires: 05/14/2024 Start: 02-13-2024 End: 05-14-2024 Lipid 1996 panel - Serum or Plasma LIPID PANEL BASIC Lab Routine Dyslipidemia IFG (impaired fasting glucose) Expected: 02/13/2024, Expires: 05/14/2024 [facility] Comment on above: Expected: 02/13/2024 , Expires: 05/14/2024 Start: 02-13-2024 End: 05-14-2024 Thyrotropin [Units/volume] in Serum or Plasma THYROID STIMULATING HORMONE Lab Routine Well adult exam Other specified hypothyroidism Expected: 02/13/2024, Expires: 05/14/2024 [facility] Comment on above: Expected: 02/13/2024 , Expires: 05/14/2024 Start: 02-13-2024 End: 05-14-2024 Thyroxine (T4) free [Mass/volume] in Serum or Plasma T4 FREE/FREE THYROXINE Lab Routine Well adult exam Other specified hypothyroidism Expected: 02/13/2024, Expires: 05/14/2024 [facility] Comment on above: Expected: 02/13/2024 , Expires: 05/14/2024 Start: 02-13-2024 End: 05-14-2024 Triiodothyronine (T3) [Mass/volume] in Serum or Plasma T3 Lab Routine Well adult exam Other specified hypothyroidism Expected: 02/13/2024, Expires: 05/14/2024 [facility] Comment on above: Expected: 02/13/2024 , Expires: 05/14/2024 Start: 02-05-2024 ANNUAL PCP TEAM INSPECTOR PLATING CASSANDRA DISEASE VISIT ANNUAL PCP TEAM CHRONIC DISEASE VISIT [facility] Start: 01-27-2024 End: 01-27-2024 Specialty Pharmacy 01/27/2024 8:00 AM EDT Specialty Pharmacy [facility] [address] [place] [id number] [place] [address] Pharmacist, [facility] [address] [place] [address] [place] [address] REFILL - Dupixent. PAx 10/28/23 [NCA 02/14] - 02/04 *patient does not have a working phone, she will have to call us* [facility] Comment on above: REFILL - Dupixent. P Ax 10/28/23 [NCA 02/14] - 02/04 *patient does not have a working phone, she will have to call us* Start: 01-26-2024 End: 01-26-2024 Specialty Pharmacy 01/26/2024 8:00 AM EDT Specialty Pharmacy [facility] [address] [place], [place] [id number] [address] Pharmacist, [facility] [address] [place] [address] [place] [address] REFILL - Dupixent. PAx 10/28/23 [NCA 02/14] - 02/04 *patient does not have a working phone, she will have to call us* [facility] Comment on above: REFILL - Dupixent. P Ax 10/28/23 [NCA 02/14] - 02/04 *patient does not have a working phone, she will have to call us* Start: 12-30-2023 End: 12-30-2023 Specialty Pharmacy 12/30/2023 8:15 AM EDT Specialty Pharmacy [facility] [address] [place] [address]-[address] [place] [id number] Pharmacist, [facility] [address] [place] [address] [place] [address] REFILL - Dupixent. PAx 10/28/23 [NCA 02/14] - ND 12/31 *patient does not have a working phone, she will have to call us* [facility] Comment on above: REFILL - Dupixent. P Ax 10/28/23 [NCA 02/14] - ND 12/31 *patient does not have a working phone, she will have to call us* Start: 12-25-2023 ANNUAL PCP TEAM INSPECTOR PLATING CASSANDRA DISEASE VISIT ANNUAL PCP TEAM CHRONIC DISEASE VISIT [facility] Start: 12-06-2023 ANNUAL PCP TEAM INSPECTOR PLATING CASSANDRA DISEASE VISIT ANNUAL PCP TEAM CHRONIC DISEASE VISIT [facility] Start: 12-06-2023 Screening for malign ant neoplasm of cervix Cervical Cancer Screening [facility] Start: 08-25-2023 Screening for malign ant neoplasm of breast Mammogram Screening [facility] Start: 04-24-2023 Covid-19 Vaccine () Covid-19 Vaccine () [facility] Start: 04-24-2023 Influenza vaccination [facility] Start: 03-30-2023 Urine microalbumin profile [facility] Start: 03-25-2023 End: 04-24-2023 Ct thorax w/o contrast material CT CHEST WO IVCON Radiology Routine Lung nodules Expected: 03/25/2023, Expires: 04/24/2023 [facility] Work Phone: Comment on above: Expected: 03/25/2023 , Expires: 04/24/2023 Start: 03-21-2023 Influenza vaccination LUNG CANCER SC MARYNING [facility] Start: 03-13-2023 ANNUAL PCP TEAM INSPECTOR PLATING CASSANDRA DISEASE VISIT ANNUAL PCP TEAM CHRONIC DISEASE VISIT [facility] Start: 02-20-2023 Influenza vaccination INFLUENZA VACC INE (#1) [facility] Comment on above: Postponed from 04/24 (Patient Refused) Start: 02-17-2023 End: 04-19-2023 25-hydroxyvitamin D3 [Mass/volume] in Serum or Plasma [facility] Work Phone: Comment on above: Expected: 02/17/2023 , Expires: 04/19/2023 Start: 02-17-2023 End: 04-19-2023 Alpha 1 antitrypsin [Mass/volume] in Serum or Plasma [facility] Work Phone: Comment on above: Expected: 02/17/2023 , Expires: 04/19/2023 Start: 02-17-2023 End: 04-19-2023 CBC W Auto Differential panel - Blood [facility] Work Phone: Comment on above: Expected: 02/17/2023 , Expires: 04/19/2023 Start: 02-17-2023 End: 04-19-2023 Cobalamin (Vitamin B12) [Mass/volume] in Serum or Plasma [facility] Work Phone: Comment on above: Expected: 02/17/2023 , Expires: 04/19/2023 Start: 02-17-2023 End: 04-19-2023 Comprehensive metabolic 2000 panel - Serum or Plasma [facility] Work Phone: Comment on above: Expected: 02/17/2023 , Expires: 04/19/2023 Start: 02-17-2023 End: 04-19-2023 Hemoglobin A1c in Blood [facility] Work Phone: Comment on above: Expected: 02/17/2023 , Expires: 04/19/2023 Start: 02-17-2023 End: 04-19-2023 Lipid 1996 panel - Serum or Plasma [facility] Work Phone: Comment on above: Expected: 02/17/2023 , Expires: 04/19/2023 Start: 02-17-2023 End: 04-19-2023 Thyrotropin [Units/volume] in Serum or Plasma [facility] Work Phone: Comment on above: Expected: 02/17/2023 , Expires: 04/19/2023 Start: 02-17-2023 End: 04-19-2023 Thyroxine (T4) free [Mass/volume] in Serum or Plasma [facility] Work Phone: Comment on above: Expected: 02/17/2023 , Expires: 04/19/2023 Start: 01-09-2023 ANNUAL PCP TEAM INSPECTOR PLATING CASSANDRA DISEASE VISIT ANNUAL PCP TEAM CHRONIC DISEASE VISIT [facility] Start: 12-05-2022 End: 02-04-2023 Herpes simplex virus+Varicella zoster virus DNA [Presence] in Unspecified specimen by JEANNA with probe detection [facility] Work Phone: Comment on above: Expected: 12/05/2022 , Expires: 02/04/2023 Start: 11-27-2022 ANNUAL PCP TEAM INSPECTOR PLATING CASSANDRA DISEASE VISIT ANNUAL PCP TEAM CHRONIC DISEASE VISIT [facility] Start: 11-03-2022 End: 11-03-2022 Patient encounter procedure 11/03/2022 Office Visit Family Medicine Dorothea Ibanez NP [address] [place] [address] [facility] Start: 10-23-2022 ANNUAL PCP TEAM INSPECTOR PLATING CASSANDRA DISEASE VISIT ANNUAL PCP TEAM CHRONIC DISEASE VISIT [facility] Start: 09-10-2022 HPV TESTING HPV TESTING [facility] Start: 08-25-2022 End: 08-25-2022 Patient encounter procedure 08/25/2022 Appointment Radiology Dorothea Ibanez NP [address] [place] [address] [facility] Start: 04-24-2022 Influenza vaccination [facility] Start: 2022 SHINGRIX VACCINE (1 of 2) RAMIREZ GRIX VACCINE (1 of 2) [facility] Start: 03-04-2022 COVID-19 VACCINE (#1) COVID-19 VACCI NE (#1) [facility] Comment on above: Postponed from 03/26 (Declined at this time) Postponed from 09/26 (Declined at this time) Start: 03-04-2022 COVID-19 VACCINE (1) COVID-19 VACCIN E (1) [facility] Comment on above: Postponed from 03/26 (Declined at this time) Start: 02-27-2022 Radex spine cervical 4 or 5 views X-RAY EXAM NECK SPINE 4/5VWS [facility] Work Phone: Start: 02-27-2022 Radiography of ankle Ankle min 3 Vie ws [facility] Work Phone: Start: 02-27-2022 XR Ankle GE 3 Views [facility] Work Phone: Start: 02-20-2022 Influenza vaccination INFLUENZA (#1) [facility] Comment on above: Postponed from 04/24 (Declined at this time) Start: 08-22-2021 Mammography [facility] Start: 08-22-2021 Screening for malign ant neoplasm of breast Mammogram Screening [facility] Start: 2017 COLOGUARD (FIT-DNA) COLOGUARD (FIT-D NA) [facility] Start: 2017 Colonoscopy COLONOSCOPY [facility] Start: 2017 COLORECTAL CANCER SCREENING COLORECTAL CANCER SCREENING [facility] Start: [address] COLONOGRAPHY [facility] Start: 2017 FECAL OCCULT BLOOD FECAL OCCULT BLOO D [facility] Start: 2017 Screening for malign ant neoplasm of colon [facility] Start: 2017 SIGMOIDOSCOPY SIGMOIDOSCOPY [facility] Start: 03-30-2014 PNEUMOCOCCAL (2 - PCV) PNEUMOCOCCAL (2 - PCV) [facility] Start: 04-27-2013 DTAP/TDAP/TD VACCINE (2 - Td or Tdap) DTAP/TDAP/TD VACCINE (2 - Td or Tdap) [facility] Start: 2012 Screening for malign ant neoplasm of breast ANNUAL MAMMOGRAM [facility] Start: 2002 Zoledronic acid therapy ALPHA- 1 ANTITRYPSIN DEFICIENCY SCREENING [facility] Start: 1991 Hepatitis B Vaccine (1 of 3 - 19+ 3-dose series) Hepatitis B Vaccine (1 of 3 - 19+ 3-dose series) [facility] Start: 1990 Anxiety Screening Anxiety Screening [facility] Start: 1975 ANNUAL WELLNESS EXAM ANNUAL WELLNESS EXAM [facility] Start: 1972 COVID-19 VACCINE (#1) COVID-19 VACCI NE (#1) [facility] Start: 1972 HEPATITIS B (1 of 3 - 3-dose series) HEPATITIS B (1 of 3 - 3-dose series) [facility] Start: 1972 Hepatitis B Vaccine (1 of 3 - 3-dose series) Hepatitis B Vaccine (1 of 3 - 3-dose series) [facility] Start: 1972 Screening for malign ant neoplasm of cervix PAP SMEAR EVERY 3 YR (Cervical Cancer Screen) [facility] Start: 1972 Screening for malign ant neoplasm of colon [facility] Bacteria identified in Urine by Culture URINE CULTURE Microbiology Routine Urinary frequency 12/05/2022 12:03 PM [facility] Work Phone: Bacteria identified in Urine by Culture URINE CULTURE Microbiology Routine UTI symptoms 10/28/2023 11:59 AM [facility] Work Phone: Bacteria identified in Urine by Culture URINE CULTURE Microbiology Routine Dysuria 04/08/2024 10:06 AM EDT [facility] Bacteria identified in Urine by Culture BACTERIAL CULTURE, URINE Microbiology Routine Urinary frequency 11/04/2024 2:20 PM [facility] Work Phone: Bacteria identified in Urine by Culture BACTERIAL CULTURE, URINE Microbiology Routine Burning with urination Pelvic pain Lower abdominal pain Microscopic hematuria Proteinuria, unspecified type 04/06/2025 12:56 PM [facility] Work Phone: BACTERIAL VAGINOSIS AMPLIFICATION BACTERIAL VAGINOSIS AMPLIFICATION Lab Routine Vaginal itching Vaginal discharge Ordered: 11/11/2021 [facility] Work Phone: Comment on above: Ordered: 11/11/2021 BACTERIAL VAGINOSIS AMPLIFICATION BACTERIAL VAGINOSIS AMPLIFICATION Lab Routine Possible exposure to STD 12/05/2022 11:54 AM [facility] Work Phone: SAMMIE / TRICHOMONA S AMPLIFICATION SAMMIE / TRICHOMONAS AMPLIFICATION Lab Routine Vaginal itching Vaginal discharge Ordered: 11/11/2021 [facility] Work Phone: Comment on above: Ordered: 11/11/2021 SAMMIE / TRICHOMONA S AMPLIFICATION SAMMIE / TRICHOMONAS AMPLIFICATION Microbiology Routine Possible exposure to STD 12/05/2022 11:54 AM [facility] Work Phone: Chlamydia trachomatis+Neisseria gonorrhoeae DNA [Presence] in Unspecified specimen by JEANNA with probe detection GC/CHLAMYDIA DNA DET Lab Routine Vaginal itching Vaginal discharge Ordered: 11/11/2021 [facility] Work Phone: Comment on above: Ordered: 11/11/2021 COLOGUARD COLOGUARD Lab Ro utine Screening for colon cancer Ordered: 10/28/2023 [facility] Work Phone: Comment on above: Ordered: 10/28/2023 COLOGUARD COLOGUARD Lab Ro utine Screening for colon cancer Ordered: 09/13/2024 [facility] Comment on above: Ordered: 09/13/2024 End: 03-15-2023 Ct thorax w/o contrast material CT CHEST WO IVCON Radiology Routine Abnormal diffusion capacity determined by pulmonary function test 1 Occurrences starting 02/13/2022 until 03/15/2023 [facility] Work Phone: Comment on above: 1 Occurrences starti ng 02/13/2022 until 03/15/2023 End: 03-18-2024 Ct thorax w/o contrast material CT CHEST WO IVCON Radiology Routine Subacute cough SOB (shortness of breath) 1 Occurrences starting 02/17/2023 until 03/18/2024 [facility] Work Phone: Comment on above: 1 Occurrences starti ng 02/17/2023 until 03/18/2024 End: 08-05-2025 DBT Breast - bilateral screening NAREN SCREENING W ZAIRA Radiology Routine Encounter for screening mammogram for breast cancer 1 Occurrences starting 07/06/2024 until 08/05/2025 [facility] Work Phone: Comment on above: 1 Occurrences starti ng 07/06/2024 until 08/05/2025 End: 04-06-2026 DBT Breast - bilateral screening NAREN SCREENING W ZAIRA Radiology Routine Encounter for screening mammogram for malignant neoplasm of breast 1 Occurrences starting 03/07/2025 until 04/06/2026 [facility] Work Phone: Comment on above: 1 Occurrences starti ng 03/07/2025 until 04/06/2026 End: 04-06-2026 DXA Skeletal system.axial Views for bone density DXA-AXIAL SKELETON Radiology Routine Encounter for screening for osteoporosis Asymptomatic postmenopausal status 1 Occurrences starting 03/07/2025 until 04/06/2026 [facility] Comment on above: 1 Occurrences starti ng 03/07/2025 until 04/06/2026 End: 01-14-2023 EGD DIAGNOSTIC EGD DIAGNOSTIC Endoscopy Routine Bilateral upper abdominal pain Tobacco use 1 Occurrences starting 01/21/2022 until 01/14/2023 [facility] Work Phone: Comment on above: 1 Occurrences starti ng 01/21/2022 until 01/14/2023 End: 03-13-2023 EMG(NEURO/NI) EMG(NEURO/NI) EMG Routine Numbness and tingling in both hands 1 Occurrences starting 03/13/2022 until 03/13/2023 [facility] Work Phone: Comment on above: 1 Occurrences starti ng 03/13/2022 until 03/13/2023 End: 02-08-2023 LUNG DIFFUSION CAPACITY (DLCO) LUNG DIFFUSION CAPACITY (DLCO) PFT Routine Asthma with COPD with exacerbation (HCC) 1 Occurrences starting 01/09/2022 until 02/08/2023 [facility] Work Phone: Comment on above: 1 Occurrences starti ng 01/09/2022 until 02/08/2023 End: 02-08-2023 LUNG VOLUMES LUNG VOLUMES PFT Routine Asthma with COPD with exacerbation (HCC) 1 Occurrences starting 01/09/2022 until 02/08/2023 [facility] Work Phone: Comment on above: 1 Occurrences starti ng 01/09/2022 until 02/08/2023 End: 09-26-2023 NAREN SCREENING NAREN SCREENING Radiology Routine Encounter for screening mammogram for breast cancer 1 Occurrences starting 08/27/2022 until 09/26/2023 [facility] Work Phone: Comment on above: 1 Occurrences starti ng 08/27/2022 until 09/26/2023 End: 08-27-2024 NAREN SCREENING NAREN SCREENING Radiology Routine Encounter for screening mammogram for breast cancer 1 Occurrences starting 07/29/2023 until 08/27/2024 [facility] Work Phone: Comment on above: 1 Occurrences starti ng 07/29/2023 until 08/27/2024 End: 01-03-2023 Mri abdomen w/o & w/contrast material MRI LIVER WO/W IVCON Radiology Routine Fatty (change of) liver, not elsewhere classified Abnormal liver ultrasound Elevated LFTs 1 Occurrences starting 12/04/2021 until 01/03/2023 [facility] Work Phone: Comment on above: 1 Occurrences starti ng 12/04/2021 until 01/03/2023 PAIN PANEL, UR QUANT PAIN PANEL, UR QUANT Lab Routine Marijuana use Recreational drug use Lesion of face Female genital lesion 12/05/2022 11:54 AM EDT [facility] Work Phone: PAIN PANEL, UR QUANT PAIN PANEL, UR QUANT Lab Routine Marijuana use Recreational drug use Lesion of face Female genital lesion 12/05/2022 11:54 AM EDT [facility] Work Phone: PAP TEST PAP TEST Lab Russ burnham Possible exposure to STD 12/05/2022 11:54 AM EDT [facility] Work Phone: Patient Education [facility] Work Phone: Patient referral [facility] Work Phone: Physical performance test/farhan w/reprt ea 15 min PHYSICAL PERFORMANCE TEST Procedures Routine Fatigue, unspecified type COPD with chronic bronchitis Neck pain on left side Ordered: 07/20/2023 [facility] Work Phone: Comment on above: Ordered: 07/20/2023 End: 03-19-2023 Radiologic exam chest 2 views XR CHEST 2V FRONTAL/LAT Radiology Routine SOB (shortness of breath) 1 Occurrences starting 02/17/2022 until 03/19/2023 [facility] Work Phone: Comment on above: 1 Occurrences starti ng 02/17/2022 until 03/19/2023 End: 01-14-2023 Screening colonoscopy COLONOSCOPY SCREENING Endoscopy Routine Screening for colon cancer 1 Occurrences starting 01/21/2022 until 01/14/2023 [facility] Work Phone: Comment on above: 1 Occurrences starti ng 01/21/2022 until 01/14/2023 End: 03-07-2026 Screening colonoscopy COLONOSCOPY SCREENING Endoscopy Routine Screening for colon cancer 1 Occurrences starting 03/07/2025 until 03/07/2026 [facility] Comment on above: 1 Occurrences starti ng 03/07/2025 until 03/07/2026 SPECIMEN VALIDITY, URINE SPECIME N VALIDITY, URINE Lab Routine Marijuana use Recreational drug use Lesion of face Female genital lesion Ordered: 12/05/2022 [facility] Work Phone: Comment on above: Ordered: 12/05/2022 End: 02-08-2023 SPIROMETRY WITH DILATOR IF OBSTRUCTED SPIROMETRY WITH DILATOR IF OBSTRUCTED PFT Routine Asthma with COPD with exacerbation (HCC) 1 Occurrences starting 01/09/2022 until 02/08/2023 [facility] Work Phone: Comment on above: 1 Occurrences starti ng 01/09/2022 until 02/08/2023 UA DIP B/O UA DIP B/O Lab R outine Dysuria Ordered: 04/08/2024 [facility] Work Phone: Comment on above: Ordered: 04/08/2024 UA DIP, URINE (POC) UA DIP, URIN E (POC) Lab Routine Dysuria Acute cystitis with hematuria Ordered: 07/20/2023 [facility] Work Phone: Comment on above: Ordered: 07/20/2023 Urinalysis complete panel - Urine URINALYSIS, WITH MICROSCOPIC Lab Routine Stress incontinence of urine Ordered: 01/09/2022 [facility] Work Phone: Comment on above: Ordered: 01/09/2022 Urinalysis complete panel - Urine URINALYSIS WITH MICROSCOPIC, REFLEX CULTURE Lab Routine Urinary frequency Possible exposure to STD Ordered: 12/05/2022 [facility] Work Phone: Comment on above: Ordered: 12/05/2022 End: 01-17-2024 XR FOOT GENERAL 3V AP/LAT/OBL LEFT XR FOOT GENERAL 3V AP/LAT/OBL LEFT Radiology Routine Pain in left foot 1 Occurrences starting 12/18/2022 until 01/17/2024 [facility] Work Phone: Comment on above: 1 Occurrences starti ng 12/18/2022 until 01/17/2024 End: 02-27-2024 XR FOOT GENERAL 3V AP/LAT/OBL RIGHT XR FOOT GENERAL 3V AP/LAT/OBL RIGHT Radiology Routine Pain in right foot 1 Occurrences starting 01/28/2023 until 02/27/2024 [facility] Work Phone: Comment on above: 1 Occurrences starti ng 01/28/2023 until 02/27/2024 [facility] Immunizations Immunization Date Immunization Notes Care Provider Todd michel 02-17-2023 pneumococcal (PCV20) vaccine, 20 valent (PREVNAR 20) Gabriel Alcantara DO Work Phone: [facility] Work Phone: 02-17-2023 pneumococcal Conjuga te, unspecified formulation Gabriel Alcantara DO Work Phone: [facility] Work Phone: 05-20-2019 influenza virus vacc ine, unspecified formulation Ct (I-Stat) Work Phone: [facility] 03-30-2013 pneumococcal polysaccharide vaccine, 23 valent Geeta Laska CORPORATE CONSULTANT.VINEYARDIST Work Phone: [facility] Work Phone: 03-30-2013 tetanus toxoid, redu bhupendra diphtheria toxoid, and acellular pertussis vaccine, adsorbed Geeta Laska CORPORATE CONSULTANT.VINEYARDIST Work Phone: [facility] Work Phone: 08-24-1997 diphtheria and tetan us toxoids, adsorbed for pediatric use Geeta Chow MIRTHA.VINEYARDIST Work Phone: [facility] Work Phone: Payers Date Payer Category Payer Self-pay [id number] 2018 Medicaid [facility] MED[facility] A[facility] MEDICAID [id number] 2018-Present [phone] [address] [place] [address] Medicaid [id number] 2018 Medicaid [id number] 2014 [id number] 2014 Unknown [id number] Unknown [id number] Social History Date Type Detail Facility Start: 01-15-2012 End: 09-13-2024 Tobacco smoking status NCIS Smokes tobacco daily [facility] History of tobacco use Cigarette Smoker [facility] Start: 01-15-2012 End: 04-06-2025 Cigarettes smoked current (pack per day) - Reported 0.3 [facility] Start: 01-15-2012 End: 09-13-2024 Tobacco use and exposure Smokeless tobacco non-user [facility] Start: 11-11-2021 End: 04-06-2025 Alcohol intake Current drinker of alcohol (finding) [facility] Start: 02-20-2015 History SDOH Alcohol Comment occasional 1-2 drinks [facility] Start: 07-27-2014 Tobacco Comment 8-10 cigarettes per day [facility] Start: 1970 Sex Assigned At Not on file [facility] Start: 11-01-2021 End: 07-07-2022 Exposure to SARS-CoV-2 (event) Not sure [facility] Start: 12-19-2021 End: 11-28-2022 Tobacco smoking status NHIS Unknown if ever smoked [facility] Start: 12-23-2019 None [facility] Start: 12-23-2019 Alone [facility] Start: 06-05-2020 Cigarettes [facility] Start: 1970 Sex Assigned At Female W [facility] Start: 01-03-2022 End: 01-13-2022 Exposure to SARS-CoV-2 (event) Unable to assess [facility] Work Phone: Start: 02-13-2022 Tobacco Comment /ppd currently 01/23 11/12 [facility] Start: 08-04-2022 Tobacco use and exposure User of smokeless tobacco [facility] History of tobacco use Chews Tobacco [facility] Start: 08-04-2022 Alcohol Comment ocassionally [facility] Start: 02-19-2023 End: 04-06-2025 Tobacco use panel [facility] Start: 07-25-2012 Adult Depression Screening Assessment 2 [facility] Functional Status Date Assessment Result Facility 03-13-2015 Are you deaf, or do you have serious difficulty hearing No 03/13/2015 10:38 AM Rafia Pacheco LPN No [facility] 03-13-2015 Are you blind, or do you have serious difficulty seeing, even when wearing glasses No 03/13/2015 10:38 AM Rafia Pacheco LPN No [facility] 03-13-2015 Do you have serious difficulty walking or climbing stairs No 03/13/2015 10:38 AM Rafia Pacheco LPN No [facility] 03-13-2015 Do you have difficul ty dressing or bathing No 03/13/2015 10:38 AM Rafia Pacheco LPN No [facility] 03-13-2015 Because of a physica l, mental, or emotional condition, do you have difficulty doing errands alone such as visiting a physician's office or shopping No 03/13/2015 10:38 AM EDT Rafia Valadez LPN No [facility] Mental Status Date Assessment Result Facility 12-19-2021 Cognitive function Level Of Cons ciousness Awake;Alert;Appropriate;Fol lows Commands [facility] Work Phone: 03-13-2015 Because of a physica l, mental, or emotional condition, do you have serious difficulty concentrating, remembering, or making decisions No 03/13/2015 10:38 AM EDT Rafia Valadez LPN No [facility] Clinical Notes 05-04-2014 to 04-06-2025 Stefan Washington APRN.VINEYARDIST - 04/06/2025 3:18 PM EDTTelephone Encounter - Rosario Acosta LPN - 03/22/2025 9:18 AM EDTTelephone Encounter - Rosario Acosta LPN - 03/22/2025 9:18 AM EDT Note Date & Type Note Facility 04-06-2025 Note HNO ID: [id number] Author: STEFAN WASHINGTON APRN.EMILIA Service: ? Author Type: Nurse Practitioner Type: Progress Notes Filed: 04/06/2025 15:21 Note Text: 04/06/2025 Recording using [employer] software for draft documentation of the visit was discussed with the patient/authorized pharmacy sales representative; all questions welcomed and answered. Patient/authorized pharmacy sales representative agreed to proceed HPI: Kevin Post is a 55-year-old female presenting for evaluation of abdominal pain and weight loss. Abdominal Pain: - Reports belly ache but does not provide further details. Weight Loss: - Lost 14 lbs since the beginning of the year. - Actively trying to lose weight, but states, It doesn't feel like it though. Urinary Tract Infection: - Recent UTI diagnosis. Social History: - Celebrated 55rd birthday recently; plans to have a green party on the . - Has a boyfriend, Avery, for almost 3 months. - Avery has a history of methamphetamine use and legal issues but has been clean for 3 years. - Kevin smokes marijuana occasionally with Avery. 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 - Reports a history of family trauma and legal issues involving siblings. PAST MEDICAL HISTORY Diagnosis Date Abdominal pain, other specified site 10/13/2013 Asthma since early twenties Depressive disorder, not elsewhere classified Counseling center, Dr. Mancuso GERD (gastroesophageal reflux disease) IFG (impaired fasting glucose) 01/2023 Low back pain 08/04/2013 Marijuana use 06/2016 Mixed hyperlipidemia Hyperlipidemia Obesity (BMI 30-39.9) 03/28/2013 Thoracic back pain 08/04/2013 Unspecified hypothyroidism UTI (lower urinary tract infection) 05/04/2014 Current Outpatient Medications on File Prior to Visit Medication Sig oxybutynin ER (DITROPAN XL) 10 mg 24 hr tablet Take 1 tablet by mouth once daily. estradiol (ESTRACE) 0.01 % (0.1 mg/gram) vaginal cream Use 1 g vaginally three times a week. lansoprazole (PREVACID) 15 mg capsule Take 2 capsules by mouth once daily. atorvastatin (LIPITOR) 40 mg tablet Take 1 tablet by mouth daily at bedtime. Cholecalciferol, Vitamin D3, 125 mcg (5,000 unit) cap Take 1 capsule by mouth once daily. budesonide-formoterol (SYMBICORT) 160-4.5 mcg/actuation inhaler Inhale 2 puffs as instructed two times a day. hydrocortisone 2.5 % ointment Apply to affected areas on face twice daily -. Take weekends off. triamcinolone acetonide (KENALOG) 0.1 % cream Apply to affected area on extremities twice daily Thursday-Thursday. Take weekends off. Do not use on face, armpits, neck, or groin. Nebulizer and Compressor For Neb 1 Each every 4 hours as needed. tiotropium bromide (SPIRIVA RESPIMAT) 2.5 mcg/actuation inhaler INHALE TWO PUFFS BY MOUTH EVERY DAY albuterol (PROVENTIL) 2.5 mg /3 mL (0.083 %) nebulizer solution Use 3 mL via nebulizer every 4 hours as needed for wheezing/shortness of breath. Use over 5-15minutes. levothyroxine (SYNTHROID) 125 mcg tablet Take 1 tablet by mouth 6 days per week and a half tablet by mouth 1 day per week. Take on empty stomach. For Thyroid albuterol HFA (VENTOLIN HFA) 90 mcg/actuation inhaler INHALE 2 PUFFS EVERY FOUR HOURS NEEDED FOR WHEEZING/SHORTNESS OF BREATH acetylcysteine (NAC) 600 mg capsule Take 1 capsule by mouth two times a day. QUEtiapine (SEROQUEL) 50 mg tablet Take 50 mg by mouth twice daily. No current facility-administered medications on file prior to visit. Review of Systems: Gastrointestinal: (+) abdominal pain Physical Exam: BP 124/82 (BP Site: Left Arm, BP Position: Sitting, BP Cuff Size: Regular Adult) Pulse 90 Temp 36.7 ?C (98.1 ?F) Wt 65.9 kg (145 lb 3.2 oz) LMP 06/21/2018 SpO2 98% BMI 29.33 kg/m? GENERAL: NAD, alert and oriented, disheveled SKIN: unremarkable, no rash or skin lesions. HEAD: normocephalic LUNGS: Clear to auscultation bilaterally, no wheezes/rhonchi/rales. HEART: Regular rate and rhythm, no murmurs. No ectopy. EXTREMITIES: Normal, No deformities, No skin discoloration, No edema. NEURO: Awake, alert and oriented x3, cranial nerves II-XII grossly intact, normal gait, no involuntary motions ABDOMEN: WNL Diagnostics Reviewed: Labs: - Urinalysis: Positive for infection, consistent with a urinary tract infection Assessment/Plan: 1. Acute cystitis with hematuria (N30.01) 2. Burning with urination (R30.0) 3. Pelvic pain (R10.2) 4. Lower abdominal pain (R10.30) 5. Microscopic hematuria (R31.29) 6. Proteinuria, unspecified type (R80.9) - Acute cystitis with hematuria confirmed; associated symptoms include burning with urination, pelvic pain, and lower abdominal pain. - Discussed that UTI could be contributing to abdominal discomfort. - 7-day course of Cipro given The patient indicates understanding of these issues and agrees with the plan. Red flag symptoms reviewed as needed. Follow up: Stefan Washington APRN.[facility] 04-06-2025 History of Present illness Narrative 04/06/2025 Recording using [employer] software for draft documentation of the visit was discussed with the patient/authorized pharmacy sales representative; all questions welcomed and answered. Patient/authorized pharmacy sales representative agreed to proceed HPI: Kevin Post is a 55-year-old female presenting for evaluation of abdominal pain and weight loss. Abdominal Pain: - Reports belly ache but does not provide further details. Weight Loss: - Lost 14 lbs since the beginning of the year. - Actively trying to lose weight, but states, It doesn't feel like it though. Urinary Tract Infection: - Recent UTI diagnosis. Social History: - Celebrated 55rd birthday recently; plans to have a green party on the . - Has a boyfriend, Avery, for almost 3 months. - Avery has a history of methamphetamine use and legal issues but has been clean for 3 years. - Kevin smokes marijuana occasionally with Avery. 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 - Reports a history of family trauma and legal issues involving siblings. PAST MEDICAL HISTORY Diagnosis Date Abdominal pain, other specified site 10/13/2013 Asthma since early twenties Depressive disorder, not elsewhere classified Counseling center, Dr. Mancuso GERD (gastroesophageal reflux disease) IFG (impaired fasting glucose) 01/2023 Low back pain 08/04/2013 Marijuana use 06/2016 Mixed hyperlipidemia Hyperlipidemia Obesity (BMI 30-39.9) 03/28/2013 Thoracic back pain 08/04/2013 Unspecified hypothyroidism UTI (lower urinary tract infection) 05/04/2014 Current Outpatient Medications on File Prior to Visit Medication Sig oxybutynin ER (DITROPAN XL) 10 mg 24 hr tablet Take 1 tablet by mouth once daily. estradiol (ESTRACE) 0.01 % (0.1 mg/gram) vaginal cream Use 1 g vaginally three times a week. lansoprazole (PREVACID) 15 mg capsule Take 2 capsules by mouth once daily. atorvastatin (LIPITOR) 40 mg tablet Take 1 tablet by mouth daily at bedtime. Cholecalciferol, Vitamin D3, 125 mcg (5,000 unit) cap Take 1 capsule by mouth once daily. budesonide-formoterol (SYMBICORT) 160-4.5 mcg/actuation inhaler Inhale 2 puffs as instructed two times a day. hydrocortisone 2.5 % ointment Apply to affected areas on face twice daily -. Take weekends off. triamcinolone acetonide (KENALOG) 0.1 % cream Apply to affected area on extremities twice daily Thursday-Thursday. Take weekends off. Do not use on face, armpits, neck, or groin. Nebulizer and Compressor For Neb 1 Each every 4 hours as needed. tiotropium bromide (SPIRIVA RESPIMAT) 2.5 mcg/actuation inhaler INHALE TWO PUFFS BY MOUTH EVERY DAY albuterol (PROVENTIL) 2.5 mg /3 mL (0.083 %) nebulizer solution Use 3 mL via nebulizer every 4 hours as needed for wheezing/shortness of breath. Use over 5-15minutes. levothyroxine (SYNTHROID) 125 mcg tablet Take 1 tablet by mouth 6 days per week and a half tablet by mouth 1 day per week. Take on empty stomach. For Thyroid albuterol HFA (VENTOLIN HFA) 90 mcg/actuation inhaler INHALE 2 PUFFS EVERY FOUR HOURS NEEDED FOR WHEEZING/SHORTNESS OF BREATH acetylcysteine (NAC) 600 mg capsule Take 1 capsule by mouth two times a day. QUEtiapine (SEROQUEL) 50 mg tablet Take 50 mg by mouth twice daily. No current facility-administered medications on file prior to visit. Review of Systems: Gastrointestinal: (+) abdominal pain Physical Exam: BP 124/82 (BP Site: Left Arm, BP Position: Sitting, BP Cuff Size: Regular Adult) Pulse 90 Temp 36.7 C (98.1 F) Wt 65.9 kg (145 lb 3.2 oz) LMP 06/21/2018 SpO2 98% BMI 29.33 kg/m GENERAL: NAD, alert and oriented, disheveled SKIN: unremarkable, no rash or skin lesions. HEAD: normocephalic LUNGS: Clear to auscultation bilaterally, no wheezes/rhonchi/rales. HEART: Regular rate and rhythm, no murmurs. No ectopy. EXTREMITIES: Normal, No deformities, No skin discoloration, No edema. NEURO: Awake, alert and oriented x3, cranial nerves II-XII grossly intact, normal gait, no involuntary motions ABDOMEN: WNL Diagnostics Reviewed: Labs: - Urinalysis: Positive for infection, consistent with a urinary tract infection Assessment/Plan: 1. Acute cystitis with hematuria (N30.01) 2. Burning with urination (R30.0) 3. Pelvic pain (R10.2) 4. Lower abdominal pain (R10.30) 5. Microscopic hematuria (R31.29) 6. Proteinuria, unspecified type (R80.9) - Acute cystitis with hematuria confirmed; associated symptoms include burning with urination, pelvic pain, and lower abdominal pain. - Discussed that UTI could be contributing to abdominal discomfort. - 7-day course of Cipro given The patient indicates understanding of these issues and agrees with the plan. Red flag symptoms reviewed as needed. Follow up: Stefan Washington APRN.[facility] documented in this encounter [facility] 03-22-2025 Telephone encounter Note Spoke with pt gave information provided. Pt voices understanding. [facility] 03-22-2025 Miscellaneous Notes Spoke with pt gave information provided. Pt voices understanding. Please have her restart prior regimen and make sure to be consistent with it. Repeat labs in 6 weeks and see where we are at. Orders are in. Let me know if she needs new rx sent somewhere else. Thank you, Miranda Delarosa APRN.[facility] Pt called and is notified of providers results and instructions. Pt voices understanding. She states she was getting her medications sent to a friends house and at the time it was really hot and she missed about 2 weeks of her thyroid medication right before she had her labs done. Please call and advise. Jerri Garg RN Called number in chart and patients sister answered. The sister will have pt contact office. Mel Palmer MA Please call patient and let her know lab results show an extremely elevated TSH. Is she taking her synthroid regimen? All other labs are stable. Thank you, Miranda Delarosa APRN.[facility] documented in this encounter [facility] 03-21-2025 Telephone encounter Note Prescription Refill Information The patient has been identified by name and date of : Yes Caregiver verified no other encounters exist for this prescription request: Yes Caregiver confirmed with patient/requestor that no other refills are due, in the near future, with this provider at this time: Yes The last office visit in the department: 03/07/25 Does the patient have a future office visit with this provider/department: No Requested Prescriptions Pending Prescriptions Disp Refills oxybutynin ER (DITROPAN XL) 10 mg 24 hr tablet 30 tablet 11 Sig: Take 1 tablet by mouth once daily. Destiny Crandall LPN March 21, 2025 10:03 AM [facility] 03-21-2025 Miscellaneous Notes Prescription Refill Information The patient has been identified by name and date of : Yes Caregiver verified no other encounters exist for this prescription request: Yes Caregiver confirmed with patient/requestor that no other refills are due, in the near future, with this provider at this time: Yes The last office visit in the department: 03/07/25 Does the patient have a future office visit with this provider/department: No Requested Prescriptions Pending Prescriptions Disp Refills oxybutynin ER (DITROPAN XL) 10 mg 24 hr tablet 30 tablet 11 Sig: Take 1 tablet by mouth once daily. Destiny Crandall LPN March 21, 2025 10:03 AM documented in this encounter [facility] 03-20-2025 Telephone encounter Note Please have her restart prior regimen and make sure to be consistent with it. Repeat labs in 6 weeks and see where we are at. Orders are in. Let me know if she needs new rx sent somewhere else. Thank you, Miranda Delarosa APRN.[facility] 03-17-2025 Telephone encounter Note Pt called and is notified of providers results and instructions. Pt voices understanding. She states she was getting her medications sent to a friends house and at the time it was really hot and she missed about 2 weeks of her thyroid medication right before she had her labs done. Please call and advise. Jerri Garg RN [facility] 03-17-2025 Telephone encounter Note Called number in chart and patients sister answered. The sister will have pt contact office. Mel Palmre MA [facility] 03-16-2025 Telephone encounter Note Refer to other telephone encounter that I just sent. Closing this one. Thank you, Miranda Delarosa APRN.[facility] 03-16-2025 Miscellaneous Notes Refer to other telephone encounter that I just sent. Closing this one. Thank you, Miranda Delarosa APRN.[facility] Patient calling asking for her lab results. Aware PCP is out of the office this week. Please advise Latest Ref Rng 03/13/2025 WBC 3.70 - 11.00 k/uL 8.67 RBC 3.90 - 5.20 m/uL 5.51 (H) Hemoglobin 11.5 - 15.5 g/dL 15.3 Hematocrit 36.0 - 46.0 % 46.6 (H) MCV 80.0 - 100.0 fL 84.6 MCH 26.0 - 34.0 pg 27.8 MCHC 30.5 - 36.0 g/dL 32.8 RDW-CV 11.5 - 15.0 % 15.8 (H) Platelet Count 150 - 400 k/uL 213 MPV 9.0 - 12.7 fL 12.2 Neut% % 50.6 Abs Neut (ANC) 1.45 - 7.50 k/uL 4.38 Lymph% % 42.4 Abs Lymph 1.00 - 4.00 k/uL 3.68 Huntington% % 5.2 Abs Huntington <0.87 k/uL 0.45 Eosin% % 0.7 Abs Eosin <0.46 k/uL 0.06 Baso% % 0.8 Abs Baso <0.11 k/uL 0.07 Immature Gran % % 0.3 IMMATURE GRANS (ABS) <0.10 k/uL 0.03 NRBC /100 WBC 0.0 Absolute nRBC <0.01 k/uL <0.01 DTYPE Auto Protein, Total 6.3 - 8.0 g/dL 7.2 Albumin 3.9 - 4.9 g/dL 4.3 Calcium 8.5 - 10.2 mg/dL 9.7 Bilirubin, Total 0.2 - 1.3 mg/dL 0.3 Alkaline Phosphatase 34 - 123 U/L 175 (H) AST 13 - 35 U/L 27 ALT 7 - 38 U/L 17 Glucose 74 - 99 mg/dL 129 (H) BUN 7 - 21 mg/dL 14 Creatinine 0.58 - 0.96 mg/dL 0.94 Sodium 136 - 144 mmol/L 142 Potassium 3.7 - 5.1 mmol/L 3.7 Chloride 98 - 107 mmol/L 106 CO2 22 - 30 mmol/L 22 Anion Gap 8 - 15 mmol/L 14 eGFR >=60 mL/min/1.73m 73 Hemoglobin A1C 4.3 - 5.6 % 5.8 (H) Estimated Average Glucose mg/dL 120 TSH 0.270 - 4.200 mIU/L 48.300 (H) Legend: (H) High documented in this encounter [facility] 03-16-2025 Telephone encounter Note Please call patient and let her know lab results show an extremely elevated TSH. Is she taking her synthroid regimen? All other labs are stable. Thank you, Miranda Delarosa APRN.[facility] 03-16-2025 Telephone encounter Note Patient calling asking for her lab results. Aware PCP is out of the office this week. Please advise Latest Ref Rng 03/13/2025 WBC 3.70 - 11.00 k/uL 8.67 RBC 3.90 - 5.20 m/uL 5.51 (H) Hemoglobin 11.5 - 15.5 g/dL 15.3 Hematocrit 36.0 - 46.0 % 46.6 (H) MCV 80.0 - 100.0 fL 84.6 MCH 26.0 - 34.0 pg 27.8 MCHC 30.5 - 36.0 g/dL 32.8 RDW-CV 11.5 - 15.0 % 15.8 (H) Platelet Count 150 - 400 k/uL 213 MPV 9.0 - 12.7 fL 12.2 Neut% % 50.6 Abs Neut (ANC) 1.45 - 7.50 k/uL 4.38 Lymph% % 42.4 Abs Lymph 1.00 - 4.00 k/uL 3.68 Huntington% % 5.2 Abs Huntington <0.87 k/uL 0.45 Eosin% % 0.7 Abs Eosin <0.46 k/uL 0.06 Baso% % 0.8 Abs Baso <0.11 k/uL 0.07 Immature Gran % % 0.3 IMMATURE GRANS (ABS) <0.10 k/uL 0.03 NRBC /100 WBC 0.0 Absolute nRBC <0.01 k/uL <0.01 DTYPE Auto Protein, Total 6.3 - 8.0 g/dL 7.2 Albumin 3.9 - 4.9 g/dL 4.3 Calcium 8.5 - 10.2 mg/dL 9.7 Bilirubin, Total 0.2 - 1.3 mg/dL 0.3 Alkaline Phosphatase 34 - 123 U/L 175 (H) AST 13 - 35 U/L 27 ALT 7 - 38 U/L 17 Glucose 74 - 99 mg/dL 129 (H) BUN 7 - 21 mg/dL 14 Creatinine 0.58 - 0.96 mg/dL 0.94 Sodium 136 - 144 mmol/L 142 Potassium 3.7 - 5.1 mmol/L 3.7 Chloride 98 - 107 mmol/L 106 CO2 22 - 30 mmol/L 22 Anion Gap 8 - 15 mmol/L 14 eGFR >=60 mL/min/1.73m 73 Hemoglobin A1C 4.3 - 5.6 % 5.8 (H) Estimated Average Glucose mg/dL 120 TSH 0.270 - 4.200 mIU/L 48.300 (H) Legend: (H) High [facility] 03-07-2025 Instructions Gabriel Alcantara, DO - 03/07/2025 12:14 PM EDT COLONOSCOPY BOWEL PREPARATION INSTRUCTIONS GOLYTELY/NULYTELY/TRILYTE/COLYTE Your doctor has scheduled you for a colonoscopy. To have a successful colonoscopy, you must have a clean colon, that is empty. A clean colon allows your doctor to see the entire colon & diagnose issues like polyps or cancer. For doctors, a clean colon is like driving on a feng day; a dirty colon like driving in a storm. It is very important that you follow these instructions exactly, or your colonoscopy might not be as effective, could be canceled, and you may need to do the bowel prep and the colonoscopy again. TRANSPORTATION REQUIREMENTS You are receiving IV sedation. For your safety, a responsible adult escort must accompany you to and from your procedure: Your adult escort MUST be present with you at check-in for your colonoscopy. Your adult escort MUST remain in the endoscopy area until you are discharged. Your adult escort MUST transport you home once you are discharged. You are NOT allowed to operate any form of transportation (i.e. drive a car, bicycle, etc.) or leave the Endoscopy Center ALONE. It is not safe to do so. If you cannot meet these requirements, your procedure will be canceled. MEDICATION REQUIREMENTS For your safety, certain medications will need to be stopped or adjusted before you can have your procedure: BLOOD THINNERS: If you take blood thinners, such as Coumadin (warfarin), Plavix (clopidogrel), Ticlid (ticlopidine hydrochloride), Agrylin (anagrelide), Xarelto (Rivaroxaban), Pradaxa (Dabigatran), Eliquis (Apixaban), or Effient (Prasugrel), contact the physician who is prescribing these medications at least 2 weeks prior to your procedure to discuss any necessary adjustments. DIABETES: If you take medications for diabetes, your dosage may need to be adjusted. If you are being treated for diabetes with insulin, diabetic pills, or other injectable medications do not take your REGULAR dose after midnight on the day of your procedure. If you are taking any other types of insulin such as Lantus, Humalog, NPH (long-acting insulin), or 70/30 insulin, take half your normal dose the day before your procedure. DIABETES/WEIGHT MANAGEMENT: If you take medications for weight-loss, your dosage may need to be adjusted Contact the doctor who prescribes this medication for further instructions. If you take medications for weight-loss like semaglutide (Ozempic, Wegovy, Rybelsus), dulaglutide (Trulicity), liraglutide (Victoza, Saxenda), exenatide (Byetta, Bydureon), or lixisenatide (Adylyxin), stop your medication 1 week prior to your procedure. If you take medications like canagliflozin (Invokana), dapagliflozin (Farxiga, Forxiga), empagliflozin (Jardiance), stop your medication 3 days prior to your procedure. If you take ertugliflozin (Steglatro) stop your medication 4 days prior to your procedure. IRON: If you take iron pills, STOP them 1 week BEFORE your procedure, may resume after. OTHER MEDS: May take all other medications (including aspirin, antibiotics, water pills / diuretics like Lasix or Metolozone, blood pressure meds, etc.) at their usual scheduled time with a sip of water. DIET REQUIREMENTS The day before your colonoscopy, you may have a clear liquid diet (see below). The day of your colonoscopy, you may continue a clear liquid diet until 3 hours before your colonoscopy. Within 3 hours of your colonoscopy, take only any medications (as above) with a sip of water. Clear Liquid Diet Broth (chicken, beef or vegetable broth or bullion. Just the broth, no solids). Water Coffee or Tea (NO milk or creamer), but sugar and sugar substitutes are allowed. Clear liquids including clear, yellow, green, blue (NO red, NO orange, NO purple) Sodas / soft drinks Gatorade or other sports drinks Kurt-Aid or flavored drinks Plain Jell-O or other gelatins Fruit juice (strained; no-pulp) Popsicles or hard candy BOWEL PREPARATION (GOLYTELY/NULYTELY/TRILYTE/COLYTE ) Split Dosing Bowel Prep: This means drinking your bowel prep in two doses. Split dosing helps clean your colon better and makes it less likely that your procedure will be canceled. Fill your prescription for Golytely/Nulytely/Trilyte/Colyte: The afternoon before your colonoscopy, mix the solution and refrigerate. You may add the flavor pack (if present) that came with the bowel preparation. Do not add ice, sugar, or other flavorings to the solution. You will drink your prep in two doses, by several hours. On the evening before your colonoscopy: 1. 6 PM drink the first half of the bowel preparation solution. Drink one 8-ounce glass every 15 minutes. 2. Six hours before your colonoscopy, drink the second half of the solution. Drink one 8-ounce glass every 15 minutes. 3. You may continue a clear liquid diet until 3 hours before your colonoscopy. Bowel prep can work differently from person to person. Some people's bowels move slowly and they may need different instructions. Please see your doctor in office or virtually for personalized bowel prep instructions if you have: Medical condition that needs special accommodations Had a poor bowel prep results or failed bowel prep attempts in the past. Had difficulty with anesthesia during the procedure. FREQUENTLY ASKED QUESTIONS Q: What if I suffer from constipation? A: Recommend taking extra laxatives to resolve your constipation days prior to entering the bowel prep day. Q: What if have had prior poor preps results in past? A: Contact your physician as you will likely need additional bowel prep instructions. Q: What if I have motility issues like Parkinson's, MS (multiple sclerosis), wheelchair dependent, etc.? or on medications that slow bowel emptying (narcotics, gabapentin, anticholinergic medications etc.) A: Contact your physician as you will likely need extra time and additional laxatives to complete your bowel prep. Q: What if I cannot drink large volume of liquid? A: Start your prep 2-3 hours earlier to allow yourself more time to complete the entire prep. Q: What if I can't finish my bowel prep? A: If you cannot finish your entire bowel prep, it is likely that your colonoscopy will need to be rescheduled due to poor prep quality. Q: What if I had bariatric surgery? Do I still have to complete the entire prep? A: Yes, gastric bypass surgery involves the stomach & small bowel. You may need to drink smaller amounts, slower (may need more time to complete your bowel prep). Gastric bypass does not alter the length of your colon so you will need to complete the entire bowel prep, it may just take longer time to complete it. Q: What if I am on dialysis? A: Please consult your line construction supervisor prior to scheduling to get instructions pertinent to you. In general, dialysis patients take the [employer] bowel prep and have the procedure same day of their dialysis (colonoscopy in AM, dialysis in PM). Q: How do I know if something is considered as clear liquid diet? A: If you can pour it in a glass and you can see through it, it is considered clear liquid Q: Can I eat nuts, seeds, beans, popcorn, dried fruits, vegetables & fruits that have skin peel? A: No, you will need to not eat these items starting 3 days prior to procedure. Q: Can I take Uber/Lyft/taxi/bus home? A: An adult MUST be present with you at check-in for your colonoscopy and remain in the endoscopy area until you are discharged. You can take Uber home only if this adult escort is with you at check in, remain in the endoscopy area until you are discharged, and takes the Uber with you to home. Q: Can I sleep it off here and drive myself home? A: No, you must have an adult with you at time of procedure check in, remain in the endoscopy center during your procedure, and drive you home. You cannot drive a vehicle after your procedure the rest of the day. BONE MINERAL DENSITY PATIENT INSTRUCTIONS ======== Bone mineral density testing measures the amount of calcium in certain parts of your bones. This information determines how strong your bones are. The test is used to detect osteoporosis, a disease in which the bone's mineral content and density are low, increasing a person's risk of fractures. The lumbar spine (lower back) and the hip are the skeletal sites usually examined. For the test, remember that: 1. You cannot take this test if you are . 2. Eat a normal diet on the day of the test. 3. Take your medications as you normally would. 4. DO NOT take calcium supplements (such as Tums) for 24 hours before the test. 5. On the day of the test, leave valuables (jewelry or credit cards) at home. 6. The test should be performed prior to oral, rectal or IV contrast studies, or at least 7 days after any of these studies. For the test, you may be asked to wear a hospital gown. You will lie on your back, on a padded table, in a comfortable position. Generally, you can resume your usual activities immediately. documented in this encounter [facility] 03-07-2025 Note HNO ID: [id number] Author: GABRIEL ALCANTARA DO Service: ? Author Type: Physician Type: Progress Notes Filed: 03/07/2025 17:39 Note Text: CC: Kevin Post is a 54 year old female who presents to the office for follow up HPI: Pain with vaginal intercourse. Only at initial intercourse/penetration, has vaginal dryness Is post menopausal Not better with use of lubricant She hasn't tried vaginal ointments otherwise No pain or vaginal bleeding otherwise Interested in colonoscopy, asymptomatic Interested in mammogram IFG, diet controlled, admits that she isn't always consistent with her diet since she is living with her sister at this time Hemoglobin A1C Date Value Ref Range Status 09/13/2024 5.8 (H) 4.3 - 5.6 % Final Comment: [place] [employer] guidelines indicate that patients with HgbA1c in the range 5.7-6.4% are at increased risk for development of diabetes, and intervention by lifestyle modification may be beneficial. HgbA1c greater or equal to 6.5% is considered diagnostic of diabetes. 04/08/2024 5.9 (H) 4.3 - 5.6 % Final Comment: [employer] guidelines indicate that patients with HgbA1c in the range 5.7-6.4% are at increased risk for development of diabetes, and intervention by lifestyle modification may be beneficial. HgbA1c greater or equal to 6.5% is considered diagnostic of diabetes. 08/25/2023 5.6 4.3 - 5.6 % Final Comment: [employer] guidelines indicate that patients with HgbA1c in the range 5.7-6.4% are at increased risk for development of diabetes, and intervention by lifestyle modification may be beneficial. HgbA1c greater or equal to 6.5% is considered diagnostic of diabetes. 02/17/2023 5.9 (H) 4.3 - 5.6 % Final Comment: [employer] guidelines indicate that patients with HgbA1c in the range 5.7-6.4% are at increased risk for development of diabetes, and intervention by lifestyle modification may be beneficial. HgbA1c greater or equal to 6.5% is considered diagnostic of diabetes. 09/23/2021 5.6 4.3 - 5.6 % Final Comment: [employer] guidelines indicate that patients with HgbA1c in the range 5.7-6.4% are at increased risk for development of diabetes, and intervention by lifestyle modification may be beneficial. HgbA1c greater or equal to 6.5% is considered diagnostic of diabetes. PAST MEDICAL HISTORY Diagnosis Date Abdominal pain, other specified site 10/13/2013 Asthma since early twenties Depressive disorder, not elsewhere classified Counseling center, Dr. Mancuso GERD (gastroesophageal reflux disease) IFG (impaired fasting glucose) 01/2023 Low back pain 08/04/2013 Marijuana use 06/2016 Mixed hyperlipidemia Hyperlipidemia Obesity (BMI 30-39.9) 03/28/2013 Thoracic back pain 08/04/2013 Unspecified hypothyroidism UTI (lower urinary tract infection) 05/04/2014 PAST SURGICAL HISTORY Procedure Laterality Date BREAST SURGERY PROCEDURE UNLISTED 08/19/2010 nonhealing ulcer right breast, skin graft, MRSA + COLONOSCOPY 02/12/2010 [facility], + internal hemorrhoids LAPAROSCOPY SURG CHOLECYSTECTOMY 04/26/2020 Cholecystectomy, lap LUMPECTOMY/RADIOTHERAPY DIAG MAMM/A10 05/11/2012 left breast, Dr. Silva LUMPECTOMY/RADIOTHERAPY DIAG MAMM/A10 09/11/2011 right breast, Dr. Silva PAST SURGICAL HISTORY OF teeth extraction REDUCTION OF LARGE BREAST 04/26/10 Performed by SHRUT[facility] ALBARRAN at [facility] Current Outpatient Medications Medication Sig lansoprazole (PREVACID) 15 mg capsule Take 2 capsules by mouth once daily. atorvastatin (LIPITOR) 40 mg tablet Take 1 tablet by mouth daily at bedtime. Cholecalciferol, Vitamin D3, 125 mcg (5,000 unit) cap Take 1 capsule by mouth once daily. budesonide-formoterol (SYMBICORT) 160-4.5 mcg/actuation inhaler Inhale 2 puffs as instructed two times a day. dupilumab (DUPIXENT PEN) 300 mg/2 mL pen injection Inject 300mg (1 pen) subcutaneously every 2 weeks. hydrocortisone 2.5 % ointment Apply to affected areas on face twice daily -. Take weekends off. triamcinolone acetonide (KENALOG) 0.1 % cream Apply to affected area on extremities twice daily Thursday-Thursday. Take weekends off. Do not use on face, armpits, neck, or groin. Nebulizer and Compressor For Neb 1 Each every 4 hours as needed. tiotropium bromide (SPIRIVA RESPIMAT) 2.5 mcg/actuation inhaler INHALE TWO PUFFS BY MOUTH EVERY DAY albuterol (PROVENTIL) 2.5 mg /3 mL (0.083 %) nebulizer solution Use 3 mL via nebulizer every 4 hours as needed for wheezing/shortness of breath. Use over 5-15minutes. levothyroxine (SYNTHROID) 125 mcg tablet Take 1 tablet by mouth 6 days per week and a half tablet by mouth 1 day per week. Take on empty stomach. For Thyroid albuterol HFA (VENTOLIN HFA) 90 mcg/actuation inhaler INHALE 2 PUFFS EVERY FOUR HOURS NEEDED FOR WHEEZING/SHORTNESS OF BREATH oxybutynin ER (DITROPAN XL) 10 mg 24 hr tablet Take 1 tablet (more content not included)... [facility] 03-07-2025 History of Present illness Narrative CC: Kevin Post is a 54 year old female who presents to the office for follow up HPI: Pain with vaginal intercourse. Only at initial intercourse/penetration, has vaginal dryness Is post menopausal Not better with use of lubricant She hasn't tried vaginal ointments otherwise No pain or vaginal bleeding otherwise Interested in colonoscopy, asymptomatic Interested in mammogram IFG, diet controlled, admits that she isn't always consistent with her diet since she is living with her sister at this time Hemoglobin A1C Date Value Ref Range Status 09/13/2024 5.8 (H) 4.3 - 5.6 % Final Comment: [employer] guidelines indicate that patients with HgbA1c in the range 5.7-6.4% are at increased risk for development of diabetes, and intervention by lifestyle modification may be beneficial. HgbA1c greater or equal to 6.5% is considered diagnostic of diabetes. 04/08/2024 5.9 (H) 4.3 - 5.6 % Final Comment: [employer] guidelines indicate that patients with HgbA1c in the range 5.7-6.4% are at increased risk for development of diabetes, and intervention by lifestyle modification may be beneficial. HgbA1c greater or equal to 6.5% is considered diagnostic of diabetes. 08/25/2023 5.6 4.3 - 5.6 % Final Comment: [employer] guidelines indicate that patients with HgbA1c in the range 5.7-6.4% are at increased risk for development of diabetes, and intervention by lifestyle modification may be beneficial. HgbA1c greater or equal to 6.5% is considered diagnostic of diabetes. 02/17/2023 5.9 (H) 4.3 - 5.6 % Final Comment: [employer] guidelines indicate that patients with HgbA1c in the range 5.7-6.4% are at increased risk for development of diabetes, and intervention by lifestyle modification may be beneficial. HgbA1c greater or equal to 6.5% is considered diagnostic of diabetes. 09/23/2021 5.6 4.3 - 5.6 % Final Comment: [employer] guidelines indicate that patients with HgbA1c in the range 5.7-6.4% are at increased risk for development of diabetes, and intervention by lifestyle modification may be beneficial. HgbA1c greater or equal to 6.5% is considered diagnostic of diabetes. PAST MEDICAL HISTORY Diagnosis Date Abdominal pain, other specified site 10/13/2013 Asthma since early twenties Depressive disorder, not elsewhere classified Counseling center, Dr. Mancuso GERD (gastroesophageal reflux disease) IFG (impaired fasting glucose) 01/2023 Low back pain 08/04/2013 Marijuana use 06/2016 Mixed hyperlipidemia Hyperlipidemia Obesity (BMI 30-39.9) 03/28/2013 Thoracic back pain 08/04/2013 Unspecified hypothyroidism UTI (lower urinary tract infection) 05/04/2014 PAST SURGICAL HISTORY Procedure Laterality Date BREAST SURGERY PROCEDURE UNLISTED 08/19/2010 nonhealing ulcer right breast, skin graft, MRSA + COLONOSCOPY 02/12/2010 [facility], + internal hemorrhoids LAPAROSCOPY SURG CHOLECYSTECTOMY 04/26/2020 Cholecystectomy, lap LUMPECTOMY/RADIOTHERAPY DIAG MAMM/A10 05/11/2012 left breast, Dr. Silva LUMPECTOMY/RADIOTHERAPY DIAG MAMM/A10 09/11/2011 right breast, Dr. Silva PAST SURGICAL HISTORY OF teeth extraction REDUCTION OF LARGE BREAST 04/26/10 Performed by SH[facility]UT[facility] ALBARRAN at [facility] Current Outpatient Medications Medication Sig lansoprazole (PREVACID) 15 mg capsule Take 2 capsules by mouth once daily. atorvastatin (LIPITOR) 40 mg tablet Take 1 tablet by mouth daily at bedtime. Cholecalciferol, Vitamin D3, 125 mcg (5,000 unit) cap Take 1 capsule by mouth once daily. budesonide-formoterol (SYMBICORT) 160-4.5 mcg/actuation inhaler Inhale 2 puffs as instructed two times a day. dupilumab (DUPIXENT PEN) 300 mg/2 mL pen injection Inject 300mg (1 pen) subcutaneously every 2 weeks. hydrocortisone 2.5 % ointment Apply to affected areas on face twice daily M-F. Take weekends off. triamcinolone acetonide (KENALOG) 0.1 % cream Apply to affected area on extremities twice daily Thursday-Thursday. Take weekends off. Do not use on face, armpits, neck, or groin. Nebulizer and Compressor For Neb 1 Each every 4 hours as needed. tiotropium bromide (SPIRIVA RESPIMAT) 2.5 mcg/actuation inhaler INHALE TWO PUFFS BY MOUTH EVERY DAY albuterol (PROVENTIL) 2.5 mg /3 mL (0.083 %) nebulizer solution Use 3 mL via nebulizer every 4 hours as needed for wheezing/shortness of breath. Use over 5-15minutes. levothyroxine (SYNTHROID) 125 mcg tablet Take 1 tablet by mouth 6 days per week and a half tablet by mouth 1 day per week. Take on empty stomach. For Thyroid albuterol HFA (VENTOLIN HFA) 90 mcg/actuation inhaler INHALE 2 PUFFS EVERY FOUR HOURS NEEDED FOR WHEEZING/SHORTNESS OF BREATH oxybutynin ER (DITROPAN XL) 10 mg 24 hr tablet Take 1 tablet by mouth once daily. acetylcysteine (NAC) 600 mg capsule Take 1 capsule by mouth two times a day. QUEtiapine (SEROQUEL) 50 mg tablet Take 50 mg by mouth twice daily. No current facility-administered medications for this visit. ALLERGIES Allergen Reactions Adhesive Tape (Rosa Isela* Rash Bactrim Ds [Sulfame* Hives Bee Venom Protein (* Itching Niaspan [Niacin (An* Hives Penicillins Rash Social History Tobacco Use Smoking status: Every Day Current packs/day: 0.50 Average packs/day: 0.5 packs/day for 30.0 years (15.0 ttl pk-yrs) Types: Cigarettes Smokeless tobacco: Never Vaping Use Vaping status: Never Used Substance Use Topics Alcohol use: Yes Comment: occasional 1-2 drinks Drug use: Yes Types: Marijuana Comment: In the past ROS: See HPI PE: BP 116/80 Pulse 75 Temp (Src) 97.1 (Left Tympanic) Resp 16 Wt 147 lb (66.7kg) LMP 06/21/2018 Gen: A&OX3, NAD, non-toxic appearing HEENT: PERRLA, EOMs intact b/l, nares without drainage, pharynx without erythema, exudate, lesions, or drainage. Uvula midline. Neck: No LAD, no thyromegaly, no meningismus. CV: RRR, no murmur Lungs: CTA b/l, no wheezing Skin: No rashes, lesions, or wounds on exposed skin. No edema legs, normal peripheral pulses Overweight Smells of tobacco ASSESSMENT/PLAN: 1. IFG (impaired fasting glucose) - ICD9: 790.21, ICD10: R73.01 (primary diagnosis) Labs as ordered Need for dietary changes and weight loss as d/w her today - HEMOGLOBIN A1C - COMPREHENSIVE METABOLIC PANEL - COMPLETE BLOOD COUNT AND DIFFERENTIAL 2. Encounter for screening mammogram for malignant neoplasm of breast - ICD9: V76.12, ICD10: Z12.31 - Set up for mammogram, yearly mammogram recommended - Encouraged monthly BSE - Follow up for annual exam in one year. - f/u for GRIT BLASTER examination in the office here or in GRIT BLASTER office at [facility] - NAREN SCREENING W ZAIRA 3. Screening for colon cancer - ICD9: V76.51, ICD10: Z12.11 She is willing to do colonoscopy at this time - COLONOSCOPY SCREENING - PEG 3350-ELECTROLYTES 236 GRAM-22.74 GRAM-6.74 GRAM-5.86 GRAM SOLUTION 4. Encounter for screening for osteoporosis - ICD9: V82.81, ICD10: Z13.820 - DXA-AXIAL SKELETON 5. Asymptomatic postmenopausal status - ICD9: V49.81, ICD10: Z78.0 - DXA-AXIAL SKELETON 6. Dyslipidemia - ICD9: 272.4, ICD10: E78.5 - Control undetermined, due for labs - Continue current medications - Counseled on healthy diet and regular exercise - COMPREHENSIVE METABOLIC PANEL - COMPLETE BLOOD COUNT AND DIFFERENTIAL 7. Other specified hypothyroidism - ICD9: 244.8, ICD10: E03.8 - Instructed patient on importance of taking on an empty stomach either first thing in the morning or at bedtime. - continue current dose of Synthroid - THYROID STIMULATING HORMONE 8. Dyspareunia in female - ICD9: 625.0, ICD10: N94.10 - f/u for GRIT BLASTER examination in the office here or in GRIT BLASTER office at [facility] Start on trial of estradiol and she needs to make GRIT BLASTER appt 9. Overweight with body mass index (BMI) of 29 to 29.9 in adult - ICD9: 278.02, V85.25, ICD10: E66.3, Z68.29 - Lengthy discussion in office today regarding diet and exercise. Discussed use of small plate to eat meals from, drink 1 glass of water 10-15 minutes prior to eating meal, drink 8 glasses of water daily, eat fresh fruit and vegetable during meal first then lean protein such as grilled/baked chicken breast or fish, limit carbohydrate intake (less pasta, breads, rice and snack foods) as well as limiting sugars (desserts etc). Important to count / track your calories and exercise as well. 10. Tobacco use - ICD9: 305.1, ICD10: Z72.0 - Cessation encouraged. - Physiologic and physical aspects of tobacco addiction as well as strategies for quitting were discussed. - Counseling was given focusing on the harmful effects of this addiction especially given the patient's medical condition(s) which will be worsened because of the chemicals in tobacco. Gabriel Alcantara DO Return if no improvement. Follow up with Gabriel Alcantara DO. To ER if develops chest pain, shortness of breath. Discussed risks, benefits, alternatives, and potential side effects of medications. Patient/Guardian expressed understanding and agreed with the plan. See patient instructions. Gabriel Alcantara DO [address] [place] [address] documented in this encounter [facility] 02-20-2025 Telephone encounter Note The patient has been identified by name and date of : Yes Caregiver verified no other encounters exist for this prescription request: Yes Caregiver confirmed with patient/requestor that no other refills are due, in the near future, with this provider at this time: Yes The last office visit in the department: 11/04/2024 Does the patient have a future office visit with this provider/department: Yes 03/07/2025 Requested Prescriptions Pending Prescriptions Disp Refills lansoprazole (PREVACID) 15 mg capsule 60 capsule 11 Sig: Take 2 capsules by mouth once daily. atorvastatin (LIPITOR) 40 mg tablet 30 tablet 11 Sig: Take 1 tablet by mouth daily at bedtime. Cholecalciferol, Vitamin D3, 125 mcg (5,000 unit) cap 30 capsule 2 Sig: Take 1 capsule by mouth once daily. Kenya Mccann RN [facility] 02-20-2025 Miscellaneous Notes The patient has been identified by name and date of : Yes Caregiver verified no other encounters exist for this prescription request: Yes Caregiver confirmed with patient/requestor that no other refills are due, in the near future, with this provider at this time: Yes The last office visit in the department: 11/04/2024 Does the patient have a future office visit with this provider/department: Yes 03/07/2025 Requested Prescriptions Pending Prescriptions Disp Refills lansoprazole (PREVACID) 15 mg capsule 60 capsule 11 Sig: Take 2 capsules by mouth once daily. atorvastatin (LIPITOR) 40 mg tablet 30 tablet 11 Sig: Take 1 tablet by mouth daily at bedtime. Cholecalciferol, Vitamin D3, 125 mcg (5,000 unit) cap 30 capsule 2 Sig: Take 1 capsule by mouth once daily. Kenya Mccann RN documented in this encounter [facility] 01-27-2025 Telephone encounter Note Prescription Refill Information The patient has been identified by name and date of : Yes Caregiver verified no other encounters exist for this prescription request: Yes Caregiver confirmed with patient/requestor that no other refills are due, in the near future, with this provider at this time: Yes The last office visit in the department: 11-04-24 Does the patient have a future office visit with this provider/department: Yes Requested Prescriptions Pending Prescriptions Disp Refills budesonide-formoterol (SYMBICORT) 160-4.5 mcg/actuation inhaler 10.2 g 3 Sig: Inhale 2 puffs as instructed two times a day. Shauna Lobo January 27, 2025 8:52 AM [facility] 01-27-2025 Miscellaneous Notes Prescription Refill Information The patient has been identified by name and date of : Yes Caregiver verified no other encounters exist for this prescription request: Yes Caregiver confirmed with patient/requestor that no other refills are due, in the near future, with this provider at this time: Yes The last office visit in the department: 11-04-24 Does the patient have a future office visit with this provider/department: Yes Requested Prescriptions Pending Prescriptions Disp Refills budesonide-formoterol (SYMBICORT) 160-4.5 mcg/actuation inhaler 10.2 g 3 Sig: Inhale 2 puffs as instructed two times a day. Shauna Lobo January 27, 2025 8:52 AM documented in this encounter [facility] 01-12-2025 Note HNO ID: [id number] Author: ОЛЬГА WHITAKER PA-C Service: ? Author Type: Physician Nurse Reviewer Type: Progress Notes Filed: 01/12/2025 14:41 Note Text: ESTABLISHED PATIENT 01/11/2025 Last Visit in Dermatology: 08/04/2023 with Ca Arvizu MS, SONIA Chief Complaint: Derm Problem HPI: Kevin Post is a 54 year old female. Patient presents with: Derm Problem #1 Prurigo nodularis follow-up Location: generalized throughout trunk and extremities Symptoms/Course: improvement noticed while on Dupixent Current Treatment: Dupixent (last injection was ~ 3 weeks ago) Past Treatment: hydroxyzine, clotrimazole, betamethasone, hydrocortisone, cocoa butter formula Patient requesting refills of Dupixent; tolerating medication well Denies adverse reactions or side effects Pertinent History: History of skin cancer: No History of atypical nevi: No History of blistering sunburns / tanning bed use: No Organ transplant / Immunosuppression: No Pacemaker / Defibrillator / Heart Valve Replacement: No / : No Family history of skin cancer: No PAST MEDICAL HISTORY Diagnosis Date Abdominal pain, other specified site 10/13/2013 Asthma since early twenties Depressive disorder, not elsewhere classified Counseling center, Dr. Mancuso GERD (gastroesophageal reflux disease) IFG (impaired fasting glucose) 01/2023 Low back pain 08/04/2013 Marijuana use 06/2016 Mixed hyperlipidemia Hyperlipidemia Obesity (BMI 30-39.9) 03/28/2013 Thoracic back pain 08/04/2013 Unspecified hypothyroidism UTI (lower urinary tract infection) 05/04/2014 Social History Tobacco Use Smoking status: Every Day Current packs/day: 0.50 Average packs/day: 0.5 packs/day for 30.0 years (15.0 ttl pk-yrs) Types: Cigarettes Smokeless tobacco: Never Vaping Use Vaping status: Never Used Substance Use Topics Alcohol use: Yes Comment: occasional 1-2 drinks Drug use: Yes Types: Marijuana Comment: In the past ALLERGIES Allergen Reactions Adhesive Tape (Rosa Isela* Rash Bactrim Ds [Sulfame* Hives Bee Venom Protein (* Itching Niaspan [Niacin (An* Hives Penicillins Rash Current Outpatient Medications Medication Sig Cholecalciferol, Vitamin D3, 125 mcg (5,000 unit) cap Take 1 capsule by mouth once daily. levothyroxine (SYNTHROID) 125 mcg tablet Take 1 tablet by mouth 6 days per week and a half tablet by mouth 1 day per week. Take on empty stomach. For Thyroid lansoprazole (PREVACID) 15 mg capsule Take 2 capsules by mouth once daily. atorvastatin (LIPITOR) 40 mg tablet Take 1 tablet by mouth daily at bedtime. oxybutynin ER (DITROPAN XL) 10 mg 24 hr tablet Take 1 tablet by mouth once daily. acetylcysteine (NAC) 600 mg capsule Take 1 capsule by mouth two times a day. QUEtiapine (SEROQUEL) 50 mg tablet Take 50 mg by mouth twice daily. dupilumab (DUPIXENT PEN) 300 mg/2 mL pen injection Inject 300mg (1 pen) subcutaneously every 2 weeks. hydrocortisone 2.5 % ointment Apply to affected areas on face twice daily -. Take weekends off. triamcinolone acetonide (KENALOG) 0.1 % cream Apply to affected area on extremities twice daily Thursday-Thursday. Take weekends off. Do not use on face, armpits, neck, or groin. Nebulizer and Compressor For Neb 1 Each every 4 hours as needed. tiotropium bromide (SPIRIVA RESPIMAT) 2.5 mcg/actuation inhaler INHALE TWO PUFFS BY MOUTH EVERY DAY albuterol (PROVENTIL) 2.5 mg /3 mL (0.083 %) nebulizer solution Use 3 mL via nebulizer every 4 hours as needed for wheezing/shortness of breath. Use over 5-15minutes. budesonide-formoterol (SYMBICORT) 160-4.5 mcg/actuation inhaler Inhale 2 Puffs as instructed two times a day. albuterol HFA (VENTOLIN HFA) 90 mcg/actuation inhaler INHALE 2 PUFFS EVERY FOUR HOURS NEEDED FOR WHEEZING/SHORTNESS OF BREATH ROS: Skin as above. PHYSICAL EXAM: Participation of a fellow, resident, medical student, or advanced practice provider student in performing the sensitive examination was discussed with the patient or authorized pharmacy sales representative. The patient or authorized pharmacy sales representative has agreed to proceed with the sensitive examination. Zuniga Skin Type: II The patient is a pleasant female in no apparent distress. Alert and oriented x 3. Appears well developed, well nourished, and in otherwise good health. A skin exam of the face, bilateral upper extremities, and bilateral lower extremities was performed. IMPRESSION Firm hyperpigmented nodule (s) ASSESSMENT AND PLAN PRURIGO NODULARIS Generalized Medical Complexity: Chronic, not at treatment goal -Discussed etiology, educated and reassured benign nature of this condition -Informed patient the goal is to relieve pruritus and stop the itch-scratch cycle -Discussed treatment options including topicals, ILK, light therapy, NAC, etc. Plan: -Hydrocortisone 2.5% ointment. Apply twice daily to affected area(s) for up to 5 days per week as needed. Do (more content not included)... [facility] 12-29-2024 Telephone encounter Note Left message for patient to return call to PCP Team. When patient calls, please advise provider's message in telephone encounter dated 12/29/24. [facility] 12-29-2024 Miscellaneous Notes Left message for patient to return call to PCP Team. When patient calls, please advise provider's message in telephone encounter dated 12/29/24. This is something she needs to discuss in person at an appointment. Stefan [place] APRN.CNP Patient calls to request a letter for [employer] stating that she is unable to work. Patient reports that she reapplied for assistance and they will renew her application if she signs up for the work program. Patient reports that she has an open case with disability and because of that she is unable to work. Patient requesting to have letter as soon as possible as the deadline is January 05. Patient scheduled to see Kayla Corral on 01/03/2025. Patient asking if PCP office can review before then. Noted 12/05/2023 that patient requested release of medical records for social security/disability but nothing after that. Rebekah Cao RN documented in this encounter [facility] 12-29-2024 Telephone encounter Note This is something she needs to discuss in person at an appointment. Stefan [place] APRN.CNP [facility] 12-29-2024 Telephone encounter Note Patient calls to request a letter for [employer] stating that she is unable to work. Patient reports that she reapplied for assistance and they will renew her application if she signs up for the work program. Patient reports that she has an open case with disability and because of that she is unable to work. Patient requesting to have letter as soon as possible as the deadline is January 05. Patient scheduled to see Kayla Corral on 01/03/2025. Patient asking if PCP office can review before then. Noted 12/05/2023 that patient requested release of medical records for social security/disability but nothing after that. Rebekah Cao RN [facility] 12-27-2024 Telephone encounter Note Patient calls and notified of below. Patient voices understanding. Stephy Salguero RN [facility] 12-27-2024 Miscellaneous Notes Patient calls and notified of below. Patient voices understanding. Stephy Salguero RN CALLED PT'S HOME NUMBER THIS IS NOT CORRECT. MESSAGE LEFT TO PT'S SISTER TO ASK PT TO CALL THE OFFICE. SEE KAYLA'S RESPONSE. THIS NEED REFILLED AND MANAGED WITH DERM. SHE CAN REVIEW THIS AT HER APPT THIS MONTH Thank you, I'll let the pt know. I do not order dupixent. Per the 09/13/24 note: Missed her appt with derm, she has it rescheduled for next month. States her diver helper recommended her PCP send in her Dupixent for the month until she is able to see them. Requesting this today. She has an appt with derm on 01/12/25. Recommend that she keeps this appt. Kayla Corral APRN.VINEYARDIST Called [facility] to see why this was denied 12/14/24. Reviewed the office note from 09/13/24 did not note a positive clinical response and pt will be monitored routinely and review any negative or or side effects. Pt has appt with 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 01/03/25. Can this be reviewed then? PA already completed and denied. It says they didn't get notes and dx but this was sent. Will ask for an appeal. Prior authorization requested for the following medication: Medication: dupilumab (Dupixent Pen) 300 mg/2 mL Provider: ordered by Elmira Delarosa CNP [place] [facility] [place]see record for insurance details Pharmacy Name: [facility] Telephone number: [phone] Kenya Mccann RN documented in this encounter [facility] 12-27-2024 Telephone encounter Note CALLED PT'S HOME NUMBER THIS IS NOT CORRECT. MESSAGE LEFT TO PT'S SISTER TO ASK PT TO CALL THE OFFICE. SEE KAYLA'S RESPONSE. THIS NEED REFILLED AND MANAGED WITH DERM. SHE CAN REVIEW THIS AT HER APPT THIS MONTH [facility] 12-27-2024 Telephone encounter Note Thank you, I'll let the pt know. [facility] 12-26-2024 Telephone encounter Note I do not order dupixent. Per the 09/13/24 note: Missed her appt with derm, she has it rescheduled for next month. States her diver helper recommended her PCP send in her Dupixent for the month until she is able to see them. Requesting this today. She has an appt with derm on 01/12/25. Recommend that she keeps this appt. Kayla Corral APRN.EMILIA [facility] Work Phone: 12-26-2024 Telephone encounter Note Called [facility] to see why this was denied 12/14/24. Reviewed the office note from 09/13/24 did not note a positive clinical response and pt will be monitored routinely and review any negative or or side effects. Pt has appt with 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 01/03/25. Can this be reviewed then? [facility] 12-26-2024 Telephone encounter Note PA already completed and denied. It says they didn't get notes and dx but this was sent. Will ask for an appeal. [facility] 12-26-2024 Telephone encounter Note Prior authorization requested for the following medication: Medication: dupilumab (Dupixent Pen) 300 mg/2 mL Provider: ordered by Elmira Delarosa CNP [facility] [place]-see record for insurance details Pharmacy Name: [facility] Telephone number: [phone] Kenya Mccann RN [facility] 12-05-2024 Telephone encounter Note The patient has been identified by name and date of : Yes, pharmacy Caregiver verified no other encounters exist for this prescription request: Yes Caregiver confirmed with patient/requestor that no other refills are due, in the near future, with this provider at this time: Yes The last office visit in the department: 11/04/2024 Does the patient have a future office visit with this provider/department: Yes 03/07/2025 Requested Prescriptions Pending Prescriptions Disp Refills dupilumab (DUPIXENT PEN) 300 mg/2 mL pen injection 4 mL 2 Sig: Inject 300mg (1 pen) subcutaneously every 2 weeks. Hattie Miranda LPN December 05, 2024 2:10 PM [facility] 12-05-2024 Miscellaneous Notes The patient has been identified by name and date of : Yes, pharmacy Caregiver verified no other encounters exist for this prescription request: Yes Caregiver confirmed with patient/requestor that no other refills are due, in the near future, with this provider at this time: Yes The last office visit in the department: 11/04/2024 Does the patient have a future office visit with this provider/department: Yes 03/07/2025 Requested Prescriptions Pending Prescriptions Disp Refills dupilumab (DUPIXENT PEN) 300 mg/2 mL pen injection 4 mL 2 Sig: Inject 300mg (1 pen) subcutaneously every 2 weeks. Hattie Miranda LPN December 05, 2024 2:10 PM documented in this encounter [facility] 11-29-2024 Telephone encounter Note Prescription Refill Information The patient has been identified by name and date of : Yes Caregiver verified no other encounters exist for this prescription request: Yes Caregiver confirmed with patient/requestor that no other refills are due, in the near future, with this provider at this time: Yes The last office visit in the department: 11-04-24 Does the patient have a future office visit with this provider/department: Yes Requested Prescriptions Pending Prescriptions Disp Refills Cholecalciferol, Vitamin D3, 125 mcg (5,000 unit) cap 30 capsule 2 Sig: Take 1 capsule by mouth once daily. Shauna Lobo November 29, 2024 8:47 AM [facility] 11-29-2024 Miscellaneous Notes Prescription Refill Information The patient has been identified by name and date of : Yes Caregiver verified no other encounters exist for this prescription request: Yes Caregiver confirmed with patient/requestor that no other refills are due, in the near future, with this provider at this time: Yes The last office visit in the department: 11-04-24 Does the patient have a future office visit with this provider/department: Yes Requested Prescriptions Pending Prescriptions Disp Refills Cholecalciferol, Vitamin D3, 125 mcg (5,000 unit) cap 30 capsule 2 Sig: Take 1 capsule by mouth once daily. Shauna Lobo November 29, 2024 8:47 AM documented in this encounter [facility] 11-16-2024 Telephone encounter Note Please resend order to [facility] was initially sent to [facility]. Someone faxed order to [facility] on 11/03/24, but Pt states they never received it. The patient has been identified by name and date of : Yes Caregiver verified no other encounters exist for this prescription request: Yes Caregiver confirmed with patient/requestor that no other refills are due, in the near future, with this provider at this time: Yes The last office visit in the department: 11/04/2024 Does the patient have a future office visit with this provider/department: Yes 03/07/2025 Requested Prescriptions Pending Prescriptions Disp Refills Nebulizer and Compressor For Neb 1 Each 0 Si Each every 4 hours as needed. Jerri Garg RN November 16, 2024 10:27 AM [facility] 11-16-2024 Miscellaneous Notes Please resend order to [facility] was initially sent to [facility]. Someone faxed order to [facility] on 11/03/24, but Pt states they never received it. The patient has been identified by name and date of : Yes Caregiver verified no other encounters exist for this prescription request: Yes Caregiver confirmed with patient/requestor that no other refills are due, in the near future, with this provider at this time: Yes The last office visit in the department: 11/04/2024 Does the patient have a future office visit with this provider/department: Yes 03/07/2025 Requested Prescriptions Pending Prescriptions Disp Refills Nebulizer and Compressor For Neb 1 Each 0 Si Each every 4 hours as needed. Jerri Garg RN November 16, 2024 10:27 AM documented in this encounter [facility] 11-08-2024 Telephone encounter Note Sent pt letter asking her to contact office. Please update number in chart. Mel Palmer MA [facility] 11-08-2024 Miscellaneous Notes Sent pt letter asking her to contact office. Please update number in chart. Mel Palmer MA Attempted to contact pt with no answer. Mel Palmer MA Left additional message Mel Palmer MA Tried calling patient at mobile number listed in chart and cat driver of phone advised not associated with patient so contact removed. Left vm on home and friend phillip mcgraw for patient to call office back. Submitted PA for injections as requested in office. Used office note from derm and today and insurance denied coverage. States denied due to no documentation showing positive response. Patient will need to wait till she sees dermatology for them to document detailed information and re-submit PA from specialist. Lizbeth Amaral MA documented in this encounter [facility] 11-08-2024 Telephone encounter Note An unknown male phoned in, stating [facility] has called patient several times at the [phone] number, and this number belongs to him. He only knew patient's 1st name from the messages that were left. States he assumes the message for her is very important or he would not have received so many calls in the last couple days. Thanked the man for calling in to let us know. (Was able to pull up patient's chart with his phone number). This nurse phoned Keiry dutton's number, and it is not correct either, as the states the number belongs to a Mallorie. This nurse phoned brotherMauricio's number and received message this is not a working number. This nurse [facility]oned [facility]. [facility] gave patient's current phone number. Updated chart. [facility] also gave phone number for sister Keiry. Updated chart. [facility] reports they did deliver the macrobid to patient and she did receive it. [facility] gave patient's new address also. Updated chart. This nurse phoned the number [facility] gave- [phone]- and a man named Dominik answered. States the number belongs to him, and he knows patient and does get calls for her sometimes. Asked Dominik to let patient know to call her doctor's office. Dominik states the only way he can reach her is through facebook, and he will try to get a message to her. [facility] 11-08-2024 Miscellaneous Notes An unknown male phoned in, stating [facility] has called patient several times at the [phone] number, and this number belongs to him. He only knew patient's 1st name from the messages that were left. States he assumes the message for her is very important or he would not have received so many calls in the last couple days. Thanked the man for calling in to let us know. (Was able to pull up patient's chart with his phone number). This nurse phoned sisterKeiry's number, and it is not correct either, as the vm states the number belongs to a Mallorie. This nurse phoned brothMauricio hernandez's number and received message this is not a working number. This nurse phoned [facility]. [facility] gave patient's current phone number. Updated chart. [facility] also gave phone number for sister Keiry. Updated chart. [facility] reports they did deliver the macrobid to patient and she did receive it. [facility] gave patient's new address also. Updated chart. This nurse phoned the number Derrick gave- [phone]- and a man named Dominik answered. States the number belongs to him, and he knows patient and does get calls for her sometimes. Asked Dominik to let patient know to call her doctor's office. Dominik states the only way he can reach her is through [employer], and he will try to get a message to her. Left message for patient to return call. Audrey Mendoza Ma Left message for patient to return call. Audrey Mendoza Ma Tried to reach pt, wrong number. Phone number needs updated. Yola Hernandez MA ----- Message from Mary Subramanian sent at 11/07/2024 7:56 AM EDT ----- Please let patient know that she does have an E. coli infection in her urine. The nitrofurantoin that I gave her should be effective. Please recheck a urine culture once antibiotic is finished so that we know it has resolved. Please let patient know that she does have an E. coli infection in her urine. The nitrofurantoin that I gave her should be effective. Please recheck a urine culture once antibiotic is finished so that we know it has resolved. documented in this encounter [facility] 11-08-2024 Telephone encounter Note Left message for patient to return call. Audrey Mendoza Ma [facility] 11-07-2024 Telephone encounter Note Left message for patient to return call. Audrey Mendoza Ma [facility] 11-07-2024 Telephone encounter Note Tried to reach pt, wrong number. Phone number needs updated. Yola Hernandez MA [facility] 11-07-2024 Telephone encounter Note ----- Message from Mary Subramanian sent at 11/07/2024 7:56 AM EDT ----- Please let patient know that she does have an E. coli infection in her urine. The nitrofurantoin that I gave her should be effective. Please recheck a urine culture once antibiotic is finished so that we know it has resolved. [facility] 11-07-2024 Progress note Formatting of t his note might be different from the original. Please let patient know that she does have an E. coli infection in her urine. The nitrofurantoin that I gave her should be effective. Please recheck a urine culture once antibiotic is finished so that we know it has resolved. [facility] 11-04-2024 Instructions Mary Subramanian APRN.CNP - 11/04/2024 1:58 PM EDT 1) See Dr. Alcantara in February 2) Start Macrobid 2 x day for 5 days 3) Will send urine for culture documented in this encounter [facility] 11-04-2024 Note HNO ID: [id number] Author: MARY SUBRAMANIAN APRN.CNP Service: ? Author Type: Nurse Practitioner Type: Progress Notes Filed: 11/04/2024 14:01 Note Text: This is a 54 year old female who presents today with: Patient presents with: UTI: Urinary frequency x 1 week, hurts when urinating HISTORY OF PRESENT ILLNESS: Kevin Post is a 54 year old female. Patient presents with: UTI: Urinary frequency x 1 week, hurts when urinating No fever- + chills with menopause Thought she saw blood in urine Hurting with urination Started 1 week ago No N/V PAST MEDICAL HISTORY: PAST MEDICAL HISTORY Diagnosis Date Abdominal pain, other specified site 10/13/2013 Asthma since early twenties Depressive disorder, not elsewhere classified Counseling center, Dr. Mancuso GERD (gastroesophageal reflux disease) IFG (impaired fasting glucose) 01/2023 Low back pain 08/04/2013 Marijuana use 06/2016 Mixed hyperlipidemia Hyperlipidemia Obesity (BMI 30-39.9) 03/28/2013 Thoracic back pain 08/04/2013 Unspecified hypothyroidism UTI (lower urinary tract infection) 05/04/2014 PAST SURGICAL HISTORY Procedure Laterality Date BREAST SURGERY PROCEDURE UNLISTED 08/19/2010 nonhealing ulcer right breast, skin graft, MRSA + COLONOSCOPY 02/12/2010 [facility], + internal hemorrhoids LAPAROSCOPY SURG CHOLECYSTECTOMY 04/26/2020 Cholecystectomy, lap LUMPECTOMY/RADIOTHERAPY DIAG MAMM/A10 05/11/2012 left breast, Dr. Silva LUMPECTOMY/RADIOTHERAPY DIAG MAMM/A10 09/11/2011 right breast, Dr. Silva PAST SURGICAL HISTORY OF teeth extraction REDUCTION OF LARGE BREAST 04/26/10 Performed by SHRUTHI ALBARRAN at [facility] Adhesive Tape (Rosins), Bactrim Ds [Sulfamethoxazole-Trimethoprim], Bee Venom Protein (Honey Bee), Niaspan [Niacin (Antihyperlipidemic)], and Penicillins MEDICATIONS Current Outpatient Medications Medication Sig tiotropium bromide (SPIRIVA RESPIMAT) 2.5 mcg/actuation inhaler INHALE TWO PUFFS BY MOUTH EVERY DAY albuterol (PROVENTIL) 2.5 mg /3 mL (0.083 %) nebulizer solution Use 3 mL via nebulizer every 4 hours as needed for wheezing/shortness of breath. Use over 5-15minutes. levothyroxine (SYNTHROID) 125 mcg tablet Take 1 tablet by mouth 6 days per week and a half tablet by mouth 1 day per week. Take on empty stomach. For Thyroid dupilumab (DUPIXENT PEN) 300 mg/2 mL pen injection Inject 300mg (1 pen) subcutaneously every 2 weeks. Nebulizer and Compressor For Neb 1 Each every 4 hours as needed. Cholecalciferol, Vitamin D3, 125 mcg (5,000 unit) cap Take 1 capsule by mouth once daily. budesonide-formoterol (SYMBICORT) 160-4.5 mcg/actuation inhaler Inhale 2 Puffs as instructed two times a day. lansoprazole (PREVACID) 15 mg capsule Take 2 capsules by mouth once daily. albuterol HFA (VENTOLIN HFA) 90 mcg/actuation inhaler INHALE 2 PUFFS EVERY FOUR HOURS NEEDED FOR WHEEZING/SHORTNESS OF BREATH atorvastatin (LIPITOR) 40 mg tablet Take 1 tablet by mouth daily at bedtime. oxybutynin ER (DITROPAN XL) 10 mg 24 hr tablet Take 1 tablet by mouth once daily. acetylcysteine (NAC) 600 mg capsule Take 1 capsule by mouth two times a day. ibuprofen (MOTRIN) 800 mg tablet Take 1 tablet by mouth every 8 hours as needed for pain. L. acidophilus-L. rhamnosus 15 billion cell cap Take 1 capsule by mouth once daily. Keep in the refrigerator. QUEtiapine (SEROQUEL) 50 mg tablet Take 50 mg by mouth twice daily. No current facility-administered medications for this visit. FAMILY HISTORY Problem Relation Age of Onset Stroke Mother Emphysema Mother Heart Father 50 Diabetes Father Asthma Sister Hypertension Maternal Grandmother Stroke Maternal Grandmother Heart Maternal Grandfather Diabetes Maternal Grandfather Social History Tobacco Use Smoking status: Every Day Current packs/day: 0.50 Average packs/day: 0.5 packs/day for 30.0 years (15.0 ttl pk-yrs) Types: Cigarettes Smokeless tobacco: Never Vaping Use Vaping status: Never Used Substance Use Topics Alcohol use: Yes Comment: occasional 1-2 drinks Drug use: Yes Types: Marijuana Comment: In the past EXAM: BP 114/64 Pulse 84 Temp 36.7 ?C (98 ?F) (Right Tympanic) LMP 06/21/2018 SpO2 97% PHYSICAL EXAM: Physical Exam Vitals reviewed. Constitutional: Appearance: Normal appearance. Cardiovascular: Rate and Rhythm: Normal rate and regular rhythm. Pulses: Normal pulses. Heart sounds: Normal heart sounds. Pulmonary: Effort: Pulmonary effort is normal. Breath sounds: Normal breath sounds. Musculoskeletal: Comments: Moves all ext. And walks w/o assistive device Skin: General: Skin is warm and dry. Comments: Multiple scabbed over sores widespread likely from picking Neurological: Mental Status: She is alert and oriented to person, place, and time. LABS: urine culture send; urine positive for nitrates and leukocytes, moderate blood ASSESSMENT/PLAN: 1. U (more content not included)... [facility] 11-04-2024 History of Present illness Narrative This is a 54 year old female who presents today with: Patient presents with: UTI: Urinary frequency x 1 week, hurts when urinating HISTORY OF PRESENT ILLNESS: Kevin Post is a 54 year old female. Patient presents with: UTI: Urinary frequency x 1 week, hurts when urinating No fever- + chills with menopause Thought she saw blood in urine Hurting with urination Started 1 week ago No N/V PAST MEDICAL HISTORY: PAST MEDICAL HISTORY Diagnosis Date Abdominal pain, other specified site 10/13/2013 Asthma since early twenties Depressive disorder, not elsewhere classified Counseling center, Dr. Mancuso GERD (gastroesophageal reflux disease) IFG (impaired fasting glucose) 01/2023 Low back pain 08/04/2013 Marijuana use 06/2016 Mixed hyperlipidemia Hyperlipidemia Obesity (BMI 30-39.9) 03/28/2013 Thoracic back pain 08/04/2013 Unspecified hypothyroidism UTI (lower urinary tract infection) 05/04/2014 PAST SURGICAL HISTORY Procedure Laterality Date BREAST SURGERY PROCEDURE UNLISTED 08/19/2010 nonhealing ulcer right breast, skin graft, MRSA + COLONOSCOPY 02/12/2010 [facility], + internal hemorrhoids LAPAROSCOPY SURG CHOLECYSTECTOMY 04/26/2020 Cholecystectomy, lap LUMPECTOMY/RADIOTHERAPY DIAG MAMM/A10 05/11/2012 left breast, Dr. Silva LUMPECTOMY/RADIOTHERAPY DIAG MAMM/A10 09/11/2011 right breast, Dr. Silva PAST SURGICAL HISTORY OF teeth extraction REDUCTION OF LARGE BREAST 04/26/10 Performed by SHRUTHI ALBARRAN at [facility] Adhesive Tape (Rosins), Bactrim Ds [Sulfamethoxazole-Trimethoprim], Bee Venom Protein (Honey Bee), Niaspan [Niacin (Antihyperlipidemic)], and Penicillins MEDICATIONS Current Outpatient Medications Medication Sig tiotropium bromide (SPIRIVA RESPIMAT) 2.5 mcg/actuation inhaler INHALE TWO PUFFS BY MOUTH EVERY DAY albuterol (PROVENTIL) 2.5 mg /3 mL (0.083 %) nebulizer solution Use 3 mL via nebulizer every 4 hours as needed for wheezing/shortness of breath. Use over 5-15minutes. levothyroxine (SYNTHROID) 125 mcg tablet Take 1 tablet by mouth 6 days per week and a half tablet by mouth 1 day per week. Take on empty stomach. For Thyroid dupilumab (DUPIXENT PEN) 300 mg/2 mL pen injection Inject 300mg (1 pen) subcutaneously every 2 weeks. Nebulizer and Compressor For Neb 1 Each every 4 hours as needed. Cholecalciferol, Vitamin D3, 125 mcg (5,000 unit) cap Take 1 capsule by mouth once daily. budesonide-formoterol (SYMBICORT) 160-4.5 mcg/actuation inhaler Inhale 2 Puffs as instructed two times a day. lansoprazole (PREVACID) 15 mg capsule Take 2 capsules by mouth once daily. albuterol HFA (VENTOLIN HFA) 90 mcg/actuation inhaler INHALE 2 PUFFS EVERY FOUR HOURS NEEDED FOR WHEEZING/SHORTNESS OF BREATH atorvastatin (LIPITOR) 40 mg tablet Take 1 tablet by mouth daily at bedtime. oxybutynin ER (DITROPAN XL) 10 mg 24 hr tablet Take 1 tablet by mouth once daily. acetylcysteine (NAC) 600 mg capsule Take 1 capsule by mouth two times a day. ibuprofen (MOTRIN) 800 mg tablet Take 1 tablet by mouth every 8 hours as needed for pain. L. acidophilus-L. rhamnosus 15 billion cell cap Take 1 capsule by mouth once daily. Keep in the refrigerator. QUEtiapine (SEROQUEL) 50 mg tablet Take 50 mg by mouth twice daily. No current facility-administered medications for this visit. FAMILY HISTORY Problem Relation Age of Onset Stroke Mother Emphysema Mother Heart Father 50 Diabetes Father Asthma Sister Hypertension Maternal Grandmother Stroke Maternal Grandmother Heart Maternal Grandfather Diabetes Maternal Grandfather Social History Tobacco Use Smoking status: Every Day Current packs/day: 0.50 Average packs/day: 0.5 packs/day for 30.0 years (15.0 ttl pk-yrs) Types: Cigarettes Smokeless tobacco: Never Vaping Use Vaping status: Never Used Substance Use Topics Alcohol use: Yes Comment: occasional 1-2 drinks Drug use: Yes Types: Marijuana Comment: In the past EXAM: BP 114/64 Pulse 84 Temp 36.7 C (98 F) (Right Tympanic) LMP 06/21/2018 SpO2 97% PHYSICAL EXAM: Physical Exam Vitals reviewed. Constitutional: Appearance: Normal appearance. Cardiovascular: Rate and Rhythm: Normal rate and regular rhythm. Pulses: Normal pulses. Heart sounds: Normal heart sounds. Pulmonary: Effort: Pulmonary effort is normal. Breath sounds: Normal breath sounds. Musculoskeletal: Comments: Moves all ext. And walks w/o assistive device Skin: General: Skin is warm and dry. Comments: Multiple scabbed over sores widespread likely from picking Neurological: Mental Status: She is alert and oriented to person, place, and time. LABS: urine culture send; urine positive for nitrates and leukocytes, moderate blood ASSESSMENT/PLAN: 1. Urinary frequency - ICD9: 788.41, ICD10: R35.0 acute - Send urine for culture - Patient education for prevention given Treat with macrobid - UA DIP, URINE (POC) - NITROFURANTOIN MONOHYDRATE & MACROCRYSTAL 100 MG ORAL CAP - BACTERIAL CULTURE, URINE Discussed treatment plan and patient voices understanding. Patient's questions answered appropriately. Medications and potential side effects were discussed and patient voices understanding. Return to the office as scheduled or as needed for worsening/no improvement. Mary Subramanian APRN.EMILIA documented in this encounter [facility] 11-04-2024 Telephone encounter Note The patient has been identified by name and date of : Yes, pharmacy Caregiver verified no other encounters exist for this prescription request: Yes Caregiver confirmed with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 [facility] Dermatology: 08/04/23. The patient has not been seen by a currently practicing prescriber in dermatology at [facility] in the last 12 months and does not have an upcoming appointment. Options include: The patient may be able to request an appointment / refill from her PCP. Alternately, the patient can call for a next available appointment with a provider in dermatology at [facility]. The patient may also call for cancellations. The patient may request from schedulers a department wide search for the next available [facility] diver helper. Grace Borrego LPN Prescription Refill Information The patient has been identified by name and date of : Yes Caregiver verified no other encounters exist for this prescription request: Yes Caregiver confirmed with patient/requestor that no other refills are due, in the near future, with this provider at this time: Yes The last office visit in the department: Does the patient have a future office visit with this provider/department: Yes Requested Prescriptions Pending Prescriptions Disp Refills dupilumab (DUPIXENT PEN) 300 mg/2 mL pen injection 4 mL 2 Sig: Inject 300mg (1 pen) subcutaneously every 2 weeks. Patient asking for a short term refill until she is seen.please call her at [phone] Celi Caballero [facility] August 10, 2024 3:15 PM documented in this encounter [facility] 08-10-2024 Telephone encounter Note Prescription Refill Information The patient has been identified by name and date of : Yes Caregiver verified no other encounters exist for this prescription request: Yes Caregiver confirmed with patient/requestor that no other refills are due, in the near future, with this provider at this time: Yes The last office visit in the department: Does the patient have a future office visit with this provider/department: Yes Requested Prescriptions Pending Prescriptions Disp Refills dupilumab (DUPIXENT PEN) 300 mg/2 mL pen injection 4 mL 2 Sig: Inject 300mg (1 pen) subcutaneously every 2 weeks. Patient asking for a short term refill until she is seen.please call her at [phone] Celi Caballero [facility] August 10, 2024 3:15 PM [facility] 07-14-2024 Note HNO ID: [id number] Author: AMELIA OREILLY RPh Service: ? Author Type: ? Type: Progress Notes Filed: 10/18/2024 17:21 Note Text: [facility] Discontinuation Assessment: Disease group: Inflammatory Medication: DUPILUMAB 300 MG/2 ML SUBCUTANEOUS PEN INJECTOR Discontinue reason: Unable to reach patient Zamzam Marshall [facility] Amelia Oreilly, PharmD Clinical Pharmacist [facility] Pool: P [facility] Pool #: [id number] [facility] 07-06-2024 Note Patient Outreach (IN TMMN) KEVIN POST ([id number]) 1970 F Date Time Provider Department 07/06/24 GABRIEL ALCANTARA During your visit today, we recorded the following information about you: Allergies As of Date: 07/06/2024 Noted Allergy Reaction ADHESIVE TAPE (ROSINS) 02/01/2010 2 - Rash BACTRIM DS (SULFAMETHOXAZOLE-TRIM*03/09/2007 4 - Hives BEE VENOM PROTEIN (HONEY BEE) 04/23/2020 9 - Itching NIASPAN (NIACIN (ANTIHYPERLIPIDEM*12/22/2005 4 - Hives PENICILLINS 11/09/2007 2 - Rash Date Reviewed: 04/08/2024 Reviewed by: Mary Subramanian APRN.VINEYARDIST - Fully Assessed Visit Diagnosis:Encounter for screening mammogram for breast cancer [Z12.31] Order(s):[facility] [[id number]] Order #: [id number] FUTURE Prescriptions as of 07/11/2024 - dupilumab (DUPIXENT PEN) 300 mg/2 mL pen injection Inject 300mg (1 pen) subcutaneously every 2 weeks. - Cholecalciferol, Vitamin D3, 125 mcg (5,000 unit) cap Take 1 capsule by mouth once daily. - levothyroxine (SYNTHROID) 125 mcg tablet Take 1 tablet by mouth 6 days per week and a half tablet by mouth 1 day per week. Take on empty stomach. For Thyroid - lansoprazole (PREVACID) 15 mg capsule Take 2 capsules by mouth once daily. - albuterol HFA (VENTOLIN HFA) 90 mcg/actuation inhaler INHALE 2 PUFFS EVERY FOUR HOURS NEEDED FOR WHEEZING/SHORTNESS OF BREATH - budesonide-formoterol (SYMBICORT) 160-4.5 mcg/actuation inhaler Inhale 2 Puffs as instructed two times a day. - atorvastatin (LIPITOR) 40 mg tablet Take 1 tablet by mouth daily at bedtime. - tiotropium bromide (SPIRIVA RESPIMAT) 2.5 mcg/actuation inhaler INHALE TWO PUFFS BY MOUTH EVERY DAY - oxybutynin ER (DITROPAN XL) 10 mg 24 hr tablet Take 1 tablet by mouth once daily. - albuterol (PROVENTIL) 2.5 mg /3 mL (0.083 %) nebulizer solution Use 3 mL via nebulizer every 4 hours as needed for wheezing/shortness of breath. Use over 5-15minutes. - phenazopyridine (PYRIDIUM) 200 mg tablet Take 1 tablet by mouth three times a day as needed. - triamcinolone acetonide (KENALOG) 0.1 % cream Apply to affected areas twice daily up to 5 days per week, as needed for itching. Do not apply to face, armpits or groin. - acetylcysteine (NAC) 600 mg capsule Take 1 capsule by mouth two times a day. - Arm Brace (WRIST BRACE LARGE) misc 1 Each once daily. At bedtime - Nebulizer and Compressor For Neb 1 Each every 4 hours as needed. - ibuprofen (MOTRIN) 800 mg tablet Take 1 tablet by mouth every 8 hours as needed for pain. - L. acidophilus-L. rhamnosus 15 billion cell cap Take 1 capsule by mouth once daily. Keep in the refrigerator. - venlafaxine ER (EFFEXOR XR) 75 mg 24 hr capsule Take 1 capsule by mouth twice daily. - polyethylene glycol 3350 (MIRALAX) 17 gram/dose powder Take 17 g by mouth as needed. Take 1 dose daily PO - fluticasone (FLONASE) 50 mcg/actuation nasal spray Use 2 Sprays in each nostril once daily. Rinse mouth after use. - QUEtiapine (SEROQUEL) 50 mg tablet Take 50 mg by mouth twice daily. - hydrOXYzine HCl (ATARAX) 25 mg tablet Take 1 tablet by mouth every 6 hours as needed for Itching/Rash. - COMPOUNDED PRESCRIPTION Nebulizer Machine Dx: Asthma 493 Meds Comments as of 07/15/2016: Problem List As Of Date 07/06/2024 Noted Resolved Hypothyroidism [E03.9] Dysthymia [F34.1] OBESITY [E66.9] 12/22/2005 03/28/2013 ASTHMA UNSPECIFIED [J45.909] 01/22/2006 Sprain of ankle, unspecified site [S93.409A] 09/20/2007 09/30/2012 Hypertrophy of breast [N62] 12/17/2009 06/21/2013 Extrinsic asthma, unspecified [J45.909] 04/08/2010 03/28/2013 Obesity (BMI 30-39.9) [E66.9] 03/28/2013 03/12/2017 Low HDL (under 40) [E78.6] 03/30/2013 03/12/2017 Tobacco use [Z72.0] 08/04/2013 Thoracic back pain [M54.6] 08/04/2013 03/12/2017 Low back pain [M54.50] 08/04/2013 03/12/2017 Abdominal pain, other specified site [R10.9] 10/13/2013 03/12/2017 UTI (lower urinary tract infection) [N39.0] 05/04/2014 03/12/2017 Heart murmur [R01.1] 04/25/2015 Dyslipidemia [E78.5] 04/25/2015 Symptoms involving urinary system [R39.9] 03/12/2017 Left arm pain [M79.602] 10/25/2018 Neck pain on left side [M54.2] 02/22/2019 Trichomonas infection [A59.9] 11/27/2021 Alkaline phosphatase elevation [R74.8] 11/27/2021 Vitamin D deficiency [E55.9] 11/27/2021 Stress incontinence of urine [N39.3] 01/09/2022 Fatigue [R53.83] 02/17/2023 Routine physical examination [Z00.00] 02/17/2023 Marijuana use [F12.90] 02/17/2023 IFG (impaired fasting glucose) [R73.01] 01/2023 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. Encounter will be updated once prior authorization has been submitted by [facility]. Carmita Belcher ([facility]) [facility] FAX: [facility] Refill Assessment Medication(s): Dupixent Patient's current medication list and adherence status to current therapy were reviewed by Specialty Pharmacy clinical pharmacist to identify any new drug interactions or non-compliance to therapy. Therapy continues to be appropriate for disease, patient response, and medical condition. Verification of therapeutic benefit and effectiveness with current therapy was completed. Adverse events, barriers in adherence, and side effects were assessed and addressed if applicable. Will proceed with refill with no changes in therapy - patient progressing towards achieving therapeutic goals based on medication-specific laboratory parameters, disease state markers and outcomes. Office/provider notes have been reviewed prior to dispensing the medication. Amelia Oreilly, PharmD Clinical Pharmacist [facility] Pool: P [facility] Pool #: [id number] Practice Managers Assessment Patient confirmed: Yes Med/dose confirmed: Yes Supplies needed: Alcohol swabs, Bandages Estimated days supply on hand: 0 Next cycle/dose due: 06/24/24 Copay amount: 0 Delivery method: FedEx Signature required: Required (, Medicaid, patient preference) (patient is aware signature is required upon delivery) Delivery address: [address] [place] [address] Delivery date: 06/24/24 Questions or concerns for the pharmacist?: No Did you have any side effects believed to be related to this medication, that resulted in hospitalization?: No Current Outpatient Medications on File Prior to Visit Medication Sig dupilumab (DUPIXENT PEN) 300 mg/2 mL pen injection Inject 300mg (1 pen) subcutaneously every 2 weeks. Cholecalciferol, Vitamin D3, 125 mcg (5,000 unit) cap Take 1 capsule by mouth once daily. levothyroxine (SYNTHROID) 125 mcg tablet Take 1 tablet by mouth 6 days per week and a half tablet by mouth 1 day per week. Take on empty stomach. For Thyroid lansoprazole (PREVACID) 15 mg capsule Take 2 capsules by mouth once daily. albuterol HFA (VENTOLIN HFA) 90 mcg/actuation inhaler INHALE 2 PUFFS EVERY FOUR HOURS NEEDED FOR WHEEZING/SHORTNESS OF BREATH budesonide-formoterol (SYMBICORT) 160-4.5 mcg/actuation inhaler Inhale 2 Puffs as instructed two times a day. atorvastatin (LIPITOR) 40 mg tablet Take 1 tablet by mouth daily at bedtime. tiotropium bromide (SPIRIVA RESPIMAT) 2.5 mcg/actuation inhaler INHALE TWO PUFFS BY MOUTH EVERY DAY oxybutynin ER (DITROPAN XL) 10 mg 24 hr tablet Take 1 tablet by mouth once daily. albuterol (PROVENTIL) 2.5 mg /3 mL (0.083 %) nebulizer solution Use 3 mL via nebulizer every 4 hours as needed for wheezing/shortness of breath. Use over 5-15minutes. phenazopyridine (PYRIDIUM) 200 mg tablet Take 1 tablet by mouth three times a day as needed. triamcinolone acetonide (KENALOG) 0.1 % cream Apply to affected areas twice daily up to 5 days per week, as needed for itching. Do not apply to face, armpits or groin. acetylcysteine (NAC) 600 mg capsule Take 1 capsule by mouth two times a day. Arm Brace (WRIST BRACE LARGE) misc 1 Each once daily. At bedtime Nebulizer and Compressor For Neb 1 Each every 4 hours as needed. ibuprofen (MOTRIN) 800 mg tablet Take 1 tablet by mouth every 8 hours as needed for pain. L. acidophilus-L. rhamnosus 15 billion cell cap Take 1 capsule by mouth once daily. Keep in the refrigerator. venlafaxine ER (EFFEXOR XR) 75 mg 24 hr capsule Take 1 capsule by mouth twice daily. (Patient taking differently: Take 150 mg by mouth two times a day.) polyethylene glycol 3350 (MIRALAX) 17 gram/dose powder Take 17 g by mouth as needed. Take 1 dose daily PO fluticasone (FLONASE) 50 mcg/actuation nasal spray Use 2 Sprays in each nostril once daily. Rinse mouth after use. QUEtiapine (SEROQUEL) 50 mg tablet Take 50 mg by mouth twice daily. hydrOXYzine HCl (ATARAX) 25 mg tablet Take 1 tablet by mouth every 6 hours as needed for Itching/Rash. COMPOUNDED PRESCRIPTION Nebulizer Machine Dx: Asthma 493 (Patient taking differently: as needed. Nebulizer Machine Dx: Asthma 493) No current facility-administered medications on file prior to visit. [facility] SPECIALTY CLINICAL ASSESSMENT - INFLAMMATORY CONDITIONS V6: Ivent complete: No Assessment to use: Refill Assessment of injection issues: Yes Infection screening, including annual TB assessment when applicable to medication: Yes Current medication list (including drug interaction assessment): Yes Experience of adverse reactions to the medication: Yes Date of influenza vaccination reminder: 08/07/2023 Date of most recent vaccination assessment: 08/07/2023 Treatment Plan Information: Dupixent 300mg/2mL pens Inject 600 mg (2 pens) for first dose (day 1), then 300 mg (1 pen) every 2 weeks (on day 15 and every 2 weeks thereafter) Est. Tx Plan Start Date: No information available Estimated Start Date Info: No information available Est. Estimated Treatment Duration: Until loss of efficacy and/or no longer tolerated. Zamzam Marshall (Loss Prevention Representative) documented in this encounter [facility] 06-23-2024 Note HNO ID: [id number] Author: AMELIA OREILLY RPh Service: ? Author Type: ? Type: Progress Notes Filed: 06/23/2024 11:55 Note Text: [facility] Refill Assessment Medication(s): Dupixent Patient's current medication list and adherence status to current therapy were reviewed by Specialty Pharmacy clinical pharmacist to identify any new drug interactions or non-compliance to therapy. Therapy continues to be appropriate for disease, patient response, and medical condition. Verification of therapeutic benefit and effectiveness with current therapy was completed. Adverse events, barriers in adherence, and side effects were assessed and addressed if applicable. Will proceed with refill with no changes in therapy - patient progressing towards achieving therapeutic goals based on medication-specific laboratory parameters, disease state markers and outcomes. Office/provider notes have been reviewed prior to dispensing the medication. Amelia Oreilly, AmbreenD Clinical Pharmacist [facility] Pool: P [facility] Pool #: [id number] Practice Managers Assessment Patient confirmed: Yes Med/dose confirmed: Yes Supplies needed: Alcohol swabs, Bandages Estimated days supply on hand: 0 Next cycle/dose due: 06/24/24 Copay amount: 0 Delivery method: FedEx Signature required: Required (, Medicaid, patient preference) (patient is aware signature is required upon delivery) Delivery address: [address] [place] [id number] Delivery date: 06/24/24 Questions or concerns for the pharmacist?: No Did you have any side effects believed to be related to this medication, that resulted in hospitalization?: No Current Outpatient Medications on File Prior to Visit Medication Sig dupilumab (DUPIXENT PEN) 300 mg/2 mL pen injection Inject 300mg (1 pen) subcutaneously every 2 weeks. Cholecalciferol, Vitamin D3, 125 mcg (5,000 unit) cap Take 1 capsule by mouth once daily. levothyroxine (SYNTHROID) 125 mcg tablet Take 1 tablet by mouth 6 days per week and a half tablet by mouth 1 day per week. Take on empty stomach. For Thyroid lansoprazole (PREVACID) 15 mg capsule Take 2 capsules by mouth once daily. albuterol HFA (VENTOLIN HFA) 90 mcg/actuation inhaler INHALE 2 PUFFS EVERY FOUR HOURS NEEDED FOR WHEEZING/SHORTNESS OF BREATH budesonide-formoterol (SYMBICORT) 160-4.5 mcg/actuation inhaler Inhale 2 Puffs as instructed two times a day. atorvastatin (LIPITOR) 40 mg tablet Take 1 tablet by mouth daily at bedtime. tiotropium bromide (SPIRIVA RESPIMAT) 2.5 mcg/actuation inhaler INHALE TWO PUFFS BY MOUTH EVERY DAY oxybutynin ER (DITROPAN XL) 10 mg 24 hr tablet Take 1 tablet by mouth once daily. albuterol (PROVENTIL) 2.5 mg /3 mL (0.083 %) nebulizer solution Use 3 mL via nebulizer every 4 hours as needed for wheezing/shortness of breath. Use over 5-15minutes. phenazopyridine (PYRIDIUM) 200 mg tablet Take 1 tablet by mouth three times a day as needed. triamcinolone acetonide (KENALOG) 0.1 % cream Apply to affected areas twice daily up to 5 days per week, as needed for itching. Do not apply to face, armpits or groin. acetylcysteine (NAC) 600 mg capsule Take 1 capsule by mouth two times a day. Arm Brace (WRIST BRACE LARGE) misc 1 Each once daily. At bedtime Nebulizer and Compressor For Neb 1 Each every 4 hours as needed. ibuprofen (MOTRIN) 800 mg tablet Take 1 tablet by mouth every 8 hours as needed for pain. L. acidophilus-L. rhamnosus 15 billion cell cap Take 1 capsule by mouth once daily. Keep in the refrigerator. venlafaxine ER (EFFEXOR XR) 75 mg 24 hr capsule Take 1 capsule by mouth twice daily. (Patient taking differently: Take 150 mg by mouth two times a day.) polyethylene glycol 3350 (MIRALAX) 17 gram/dose powder Take 17 g by mouth as needed. Take 1 dose daily PO fluticasone (FLONASE) 50 mcg/actuation nasal spray Use 2 Sprays in each nostril once daily. Rinse mouth after use. QUEtiapine (SEROQUEL) 50 mg tablet Take 50 mg by mouth twice daily. hydrOXYzine HCl (ATARAX) 25 mg tablet Take 1 tablet by mouth every 6 hours as needed for Itching/Rash. COMPOUNDED PRESCRIPTION Nebulizer Machine Dx: Asthma 493 (Patient taking differently: as needed. Nebulizer Machine Dx: Asthma 493) No current facility-administered medications on file prior to visit. [facility] RX SPECIALTY CLINICAL ASSESSMENT - INFLAMMATORY CONDITIONS V6: Ivent complete: No Assessment to use: Refill Assessment of injection issues: Yes Infection screening, including annual TB assessment when applicable to medication: Yes Current medication list (including drug interaction assessment): Yes Experience of adverse reactions to the medication: Yes Date of influenza vaccination reminder: 08/07/2023 Date of most recent vaccination assessment: 08/07/2023 Treatment Plan Information: Dupixent 300mg/2mL pens Inject 600 mg (2 pens) for first dose (day 1), then 300 mg (1 pen) every 2 weeks (more content not included)... [facility] 06-23-2024 Note HNO ID: [id number] Author: ?, ?, ? Service: ? Author Type: ? Type: Progress Notes Filed: 06/23/2024 08:04 Note Text: Dupixent PA RENEWAL is required by patient's insurance plan [facility]. Encounter will be updated once prior authorization has been submitted by [facility]. Carmita Belcher ([facility]) [facility] FAX: [facility] 06-22-2024 Telephone encounter Note MERY 07/2023 Upcoming appointment 07/15/2024 [facility] 06-22-2024 Miscellaneous Notes MERY 07/2023 Upcoming appointment 07/15/2024 [facility] contacted. Per pharmacy, Dupixent has never been filled at [facility]. Summary: Dupilumab Injection Question Patient called and states she has been getting the dupilumap (DUPIXENT PEN) 300 mg refilled through [facility], but they are no longer filling it. She wasn't sure if a PA was needed, but [facility] and was told my [facility] it needed to be from a specialty pharmacy. Would someone be able to look into this for her and call her with an update? Thanks, Isra documented in this encounter [facility] 06-22-2024 Telephone encounter Note [facility] contacted. Per pharmacy, Dupixent has never been filled at [facility]. [facility] 06-22-2024 Telephone encounter Note Summary: Dupilumab Injection Question Patient called and states she has been getting the dupilumap (DUPIXENT PEN) 300 mg refilled through [facility], but they are no longer filling it. She wasn't sure if a PA was needed, but she did use [facility] before and was told my [facility] it needed to be from a specialty pharmacy. Would someone be able to look into this for her and call her with an update? Thanks, Isra T [facility] 06-16-2024 Telephone encounter Note The patient has been identified by name and date of : Yes Caregiver verified no other encounters exist for this prescription request: Yes Caregiver confirmed with patient/requestor that no other refills are due, in the near future, with this provider at this time: Yes The last office visit in the department: 04/08/2024 Does the patient have a future office visit with this provider/department: No Visit date not found Requested Prescriptions Pending Prescriptions Disp Refills Cholecalciferol, Vitamin D3, 125 mcg (5,000 unit) cap 30 capsule 2 Sig: Take 1 capsule by mouth once daily. Jerri Garg RN June 16, 2024 1:25 PM T [facility] 06-16-2024 Miscellaneous Notes The patient has been identified by name and date of : Yes Caregiver verified no other encounters exist for this prescription request: Yes Caregiver confirmed with patient/requestor that no other refills are due, in the near future, with this provider at this time: Yes The last office visit in the department: 04/08/2024 Does the patient have a future office visit with this provider/department: No Visit date not found Requested Prescriptions Pending Prescriptions Disp Refills Cholecalciferol, Vitamin D3, 125 mcg (5,000 unit) cap 30 capsule 2 Sig: Take 1 capsule by mouth once daily. Jerri Garg RN June 16, 2024 1:25 PM documented in this encounter [facility] 04-21-2024 Telephone encounter Note Please sign these orders to [facility] pharmacy per patient request. They do all the prescription servicing for patient's fdc residence. Requested Prescriptions Pending Prescriptions Disp Refills dupilumab (DUPIXENT PEN) 300 mg/2 mL pen injection 4 mL 5 Sig: Inject 300mg (1 pen) subcutaneously every 2 weeks. Please review and advise. Amelia Oreilly RPh [facility] 04-21-2024 Miscellaneous Notes Please sign these orders to [facility] pharmacy per patient request. They do all the prescription servicing for patient's fdc residence. Requested Prescriptions Pending Prescriptions Disp Refills dupilumab (DUPIXENT PEN) 300 mg/2 mL pen injection 4 mL 5 Sig: Inject 300mg (1 pen) subcutaneously every 2 weeks. Please review and advise. Amelia Oreilly RPh documented in this encounter [facility] 04-20-2024 Telephone encounter Note Prescription Refill Information The patient has been identified by name and date of : Yes Caregiver verified no other encounters exist for this prescription request: Yes Caregiver confirmed with patient/requestor that no other refills are due, in the near future, with this provider at this time: Yes The last office visit in the department: 04-08-24 Does the patient have a future office visit with this provider/department: Yes Requested Prescriptions Pending Prescriptions Disp Refills levothyroxine (SYNTHROID) 125 mcg tablet 30 tablet 5 Sig: Take 1 tablet by mouth 6 days per week and a half tablet by mouth 1 day per week. Take on empty stomach. For Thyroid Shauna Lobo April 20, 2024 1:50 PM [facility] 04-20-2024 Miscellaneous Notes Prescription Refill Information The patient has been identified by name and date of : Yes Caregiver verified no other encounters exist for this prescription request: Yes Caregiver confirmed with patient/requestor that no other refills are due, in the near future, with this provider at this time: Yes The last office visit in the department: 04-08-24 Does the patient have a future office visit with this provider/department: Yes Requested Prescriptions Pending Prescriptions Disp Refills levothyroxine (SYNTHROID) 125 mcg tablet 30 tablet 5 Sig: Take 1 tablet by mouth 6 days per week and a half tablet by mouth 1 day per week. Take on empty stomach. For Thyroid Shauna Lobo April 20, 2024 1:50 PM documented in this encounter [facility] 04-20-2024 History of Present illness Narrative [facility] Discontinuation Assessment: Disease group: Inflammatory Medication: DUPIXENT 300 MG/2 ML SUBCUTANEOUS PEN INJECTOR Discontinue reason: Change of pharmacy Patient would like Dupixent filled with [facility]. Zamzam Marshall [facility] documented in this encounter [facility] 04-20-2024 Note HNO ID: [id number] Author: ?, ?, ? Service: ? Author Type: ? Type: Progress Notes Filed: 04/20/2024 10:23 Note Text: [facility] Discontinuation Assessment: Disease group: Inflammatory Medication: DUPIXENT 300 MG/2 ML SUBCUTANEOUS PEN INJECTOR Discontinue reason: Change of pharmacy Patient would like Dupixent filled with [facility]. Zamzam Marshall [facility] [facility] 04-19-2024 Telephone encounter Note Patient needs refill of Dupixent Date of Kevin Post's last Dermatology office visit: 08/04/23 Next appointment date: 07/15/24 Last TB test: No results found for: TBGRES Requested Prescriptions Pending Prescriptions Disp Refills dupilumab (DUPIXENT PEN) 300 mg/2 mL pen injection 4 mL 0 Sig: Inject 300mg (1 pen) subcutaneously every 2 weeks. Dupilnumab (Dupixent) - IL-4 Inhibitor Monitor for signs/symptoms of hypersensitivity reactions and ocular adverse effects (consider eye exam in patients with signs/symptoms of keratitis or unresolved conjunctivitis); signs of infection (particularly parasitic [helminth] in pediatric patients <12 years); signs/symptoms of arthralgia (consider rheumatological evaluation if occurs); pulmonary function in patients treated for asthma. Spirometry Data: Latest Ref Rng & Units 01/15/2022 Spirometry Data FVC PRE (L) L 2.71 FEV1 PRE (L) L 2.17 FEV1/FVC PRE (%) % 0.80 UES81-01% PRE (L/S) L/S 2.19 PEF PRE (L/S) L/S 4.06 VC (L) BOX L 2.56 IC BOX (L) L 1.35 ERV BOX (L) L 1.17 DLCO (ml/min/mmHg) ml/min/mmHg 12.26 FRC Box (L) L 2.40 RV Box (L) L 1.36 TLC Box (L) L 3.80 RV/TLC Box (%) % 36 VA (L) L 3.71 DLCO/VA (ml/min/mmHg/L) ml/min/mmHg/L 3.30 Current Outpatient Medications on File Prior to Visit Medication Sig Cholecalciferol, Vitamin D3, 125 mcg (5,000 unit) cap Take 1 capsule by mouth once daily. lansoprazole (PREVACID) 15 mg capsule Take 2 capsules by mouth once daily. albuterol HFA (VENTOLIN HFA) 90 mcg/actuation inhaler INHALE 2 PUFFS EVERY FOUR HOURS NEEDED FOR WHEEZING/SHORTNESS OF BREATH budesonide-formoterol (SYMBICORT) 160-4.5 mcg/actuation inhaler Inhale 2 Puffs as instructed two times a day. atorvastatin (LIPITOR) 40 mg tablet Take 1 tablet by mouth daily at bedtime. tiotropium bromide (SPIRIVA RESPIMAT) 2.5 mcg/actuation inhaler INHALE TWO PUFFS BY MOUTH EVERY DAY levothyroxine (SYNTHROID) 125 mcg tablet Take 1 tablet by mouth 6 days per week and a half tablet by mouth 1 day per week. Take on empty stomach. For Thyroid oxybutynin ER (DITROPAN XL) 10 mg 24 hr tablet Take 1 tablet by mouth once daily. dupilumab (DUPIXENT PEN) 300 mg/2 mL pen injection Inject 300mg (1 pen) subcutaneously every 2 weeks. albuterol (PROVENTIL) 2.5 mg /3 mL (0.083 %) nebulizer solution Use 3 mL via nebulizer every 4 hours as needed for wheezing/shortness of breath. Use over 5-15minutes. phenazopyridine (PYRIDIUM) 200 mg tablet Take 1 tablet by mouth three times a day as needed. triamcinolone acetonide (KENALOG) 0.1 % cream Apply to affected areas twice daily up to 5 days per week, as needed for itching. Do not apply to face, armpits or groin. acetylcysteine (NAC) 600 mg capsule Take 1 capsule by mouth two times a day. Arm Brace (WRIST BRACE LARGE) misc 1 Each once daily. At bedtime Nebulizer and Compressor For Neb 1 Each every 4 hours as needed. ibuprofen (MOTRIN) 800 mg tablet Take 1 tablet by mouth every 8 hours as needed for pain. L. acidophilus-L. rhamnosus 15 billion cell cap Take 1 capsule by mouth once daily. Keep in the refrigerator. venlafaxine ER (EFFEXOR XR) 75 mg 24 hr capsule Take 1 capsule by mouth twice daily. (Patient taking differently: Take 150 mg by mouth two times a day.) polyethylene glycol 3350 (MIRALAX) 17 gram/dose powder Take 17 g by mouth as needed. Take 1 dose daily PO fluticasone (FLONASE) 50 mcg/actuation nasal spray Use 2 Sprays in each nostril once daily. Rinse mouth after use. QUEtiapine (SEROQUEL) 50 mg tablet Take 50 mg by mouth twice daily. hydrOXYzine HCl (ATARAX) 25 mg tablet Take 1 tablet by mouth every 6 hours as needed for Itching/Rash. COMPOUNDED PRESCRIPTION Nebulizer Machine Dx: Asthma 493 (Patient taking differently: as needed. Nebulizer Machine Dx: Asthma 493) No current facility-administered medications on file prior to visit. ALLERGIES Allergen Reactions Adhesive Tape (Rosa Isela* Rash Bactrim Ds [Sulfame* Hives Bee Venom Protein (* Itching Niaspan [Niacin (An* Hives Penicillins Rash Future Appointments(Up to 10) Date and Time Provider Department Dept Phone Center 04/29/2024 10:40 AM Gabriel Alcantara [facility] [phone] [facility] [place] 07/15/2024 2:00 PM Ольга Whitaker [facility] [phone] [facility] Patient prefers: [facility] Thank you! Britany De Anda, PharmD PGY-1 Community[facility] Residency (Specialty) P: [phone] F: [phone] [facility] 04-19-2024 Miscellaneous Notes Patient needs refill of Dupixent Date of Kevin Post's last Dermatology office visit: 08/04/23 Next appointment date: 07/15/24 Last TB test: No results found for: TBGRES Requested Prescriptions Pending Prescriptions Disp Refills dupilumab (DUPIXENT PEN) 300 mg/2 mL pen injection 4 mL 0 Sig: Inject 300mg (1 pen) subcutaneously every 2 weeks. Dupilnumab (Dupixent) - IL-4 Inhibitor Monitor for signs/symptoms of hypersensitivity reactions and ocular adverse effects (consider eye exam in patients with signs/symptoms of keratitis or unresolved conjunctivitis); signs of infection (particularly parasitic [helminth] in pediatric patients <12 years); signs/symptoms of arthralgia (consider rheumatological evaluation if occurs); pulmonary function in patients treated for asthma. Spirometry Data: Latest Ref Rng & Units 01/15/2022 Spirometry Data FVC PRE (L) L 2.71 FEV1 PRE (L) L 2.17 FEV1/FVC PRE (%) % 0.80 [id number]% PRE (L/S) L/S 2.19 PEF PRE (L/S) L/S 4.06 VC (L) BOX L 2.56 IC BOX (L) L 1.35 ERV BOX (L) L 1.17 DLCO (ml/min/mmHg) ml/min/mmHg 12.26 FRC Box (L) L 2.40 RV Box (L) L 1.36 TLC Box (L) L 3.80 RV/TLC Box (%) % 36 VA (L) L 3.71 DLCO/VA (ml/min/mmHg/L) ml/min/mmHg/L 3.30 Current Outpatient Medications on File Prior to Visit Medication Sig Cholecalciferol, Vitamin D3, 125 mcg (5,000 unit) cap Take 1 capsule by mouth once daily. lansoprazole (PREVACID) 15 mg capsule Take 2 capsules by mouth once daily. albuterol HFA (VENTOLIN HFA) 90 mcg/actuation inhaler INHALE 2 PUFFS EVERY FOUR HOURS NEEDED FOR WHEEZING/SHORTNESS OF BREATH budesonide-formoterol (SYMBICORT) 160-4.5 mcg/actuation inhaler Inhale 2 Puffs as instructed two times a day. atorvastatin (LIPITOR) 40 mg tablet Take 1 tablet by mouth daily at bedtime. tiotropium bromide (SPIRIVA RESPIMAT) 2.5 mcg/actuation inhaler INHALE TWO PUFFS BY MOUTH EVERY DAY levothyroxine (SYNTHROID) 125 mcg tablet Take 1 tablet by mouth 6 days per week and a half tablet by mouth 1 day per week. Take on empty stomach. For Thyroid oxybutynin ER (DITROPAN XL) 10 mg 24 hr tablet Take 1 tablet by mouth once daily. dupilumab (DUPIXENT PEN) 300 mg/2 mL pen injection Inject 300mg (1 pen) subcutaneously every 2 weeks. albuterol (PROVENTIL) 2.5 mg /3 mL (0.083 %) nebulizer solution Use 3 mL via nebulizer every 4 hours as needed for wheezing/shortness of breath. Use over 5-15minutes. phenazopyridine (PYRIDIUM) 200 mg tablet Take 1 tablet by mouth three times a day as needed. triamcinolone acetonide (KENALOG) 0.1 % cream Apply to affected areas twice daily up to 5 days per week, as needed for itching. Do not apply to face, armpits or groin. acetylcysteine (NAC) 600 mg capsule Take 1 capsule by mouth two times a day. Arm Brace (WRIST BRACE LARGE) misc 1 Each once daily. At bedtime Nebulizer and Compressor For Neb 1 Each every 4 hours as needed. ibuprofen (MOTRIN) 800 mg tablet Take 1 tablet by mouth every 8 hours as needed for pain. L. acidophilus-L. rhamnosus 15 billion cell cap Take 1 capsule by mouth once daily. Keep in the refrigerator. venlafaxine ER (EFFEXOR XR) 75 mg 24 hr capsule Take 1 capsule by mouth twice daily. (Patient taking differently: Take 150 mg by mouth two times a day.) polyethylene glycol 3350 (MIRALAX) 17 gram/dose powder Take 17 g by mouth as needed. Take 1 dose daily PO fluticasone (FLONASE) 50 mcg/actuation nasal spray Use 2 Sprays in each nostril once daily. Rinse mouth after use. QUEtiapine (SEROQUEL) 50 mg tablet Take 50 mg by mouth twice daily. hydrOXYzine HCl (ATARAX) 25 mg tablet Take 1 tablet by mouth every 6 hours as needed for Itching/Rash. COMPOUNDED PRESCRIPTION Nebulizer Machine Dx: Asthma 493 (Patient taking differently: as needed. Nebulizer Machine Dx: Asthma 493) No current facility-administered medications on file prior to visit. ALLERGIES Allergen Reactions Adhesive Tape (Rosa Isela* Rash Bactrim Ds [Sulfame* Hives Bee Venom Protein (* Itching Niaspan [Niacin (An* Hives Penicillins Rash Future Appointments(Up to 10) Date and Time Provider Department Dept Phone Center 04/29/2024 10:40 AM Gabriel Alcantara FAMP [facility] [phone] [facility] [place] 07/15/2024 2:00 PM Ольга Whitaker DERM [facility] [phone] [facility] Patient prefers: [facility] Thank you! Ambreen HankinsD PGY-1 Community[facility]Based Pharmacy Residency (Specialty) P: [phone] F: [phone] documented in this encounter [facility] 04-12-2024 Telephone encounter Note Opened in error [facility] 04-12-2024 Miscellaneous Notes Opened in error documented in this encounter [facility] 04-11-2024 Telephone encounter Note Patient was made aware of the results. Patient verbalizes understanding. Audrey Mendoza Ma [facility] 04-11-2024 Miscellaneous Notes Patient was made aware of the results. Patient verbalizes understanding. Audrey Mendoza Ma ----- Message from Mary Subramanian sent at 04/11/2024 12:18 PM EDT ----- Urine culture showed mixed organisms meaning that there is no infection. Specimen was contaminated but no bacterial infection. documented in this encounter [facility] 04-11-2024 Telephone encounter Note ----- Message from Mary Subramanian sent at 04/11/2024 12:18 PM EDT ----- Urine culture showed mixed organisms meaning that there is no infection. Specimen was contaminated but no bacterial infection. [facility] 04-08-2024 Instructions Mary Subramanian APRN.CNP - 04/08/2024 9:59 AM EDT - Nitrofurantoin 2 x day for 7 days - Mupirocin ointment daily to right elbow - See Dr. Alcantara as scheduled - Check labs today documented in this encounter [facility] 04-08-2024 History of Present illness Narrative This is a 54 year old female who presents today with: Patient presents with: Pain (Elbow Pain) UTI: Pain worse since yesterday HISTORY OF PRESENT ILLNESS: Kevin Post is a 54 year old female. Patient presents with: Pain (Elbow Pain) UTI: Pain worse since yesterday Pain with urination. Living in a fdc now. Right elbow pain, fell on it. Has an abrasion. Some swelling. Hurts only to bump it. No fever or chills. Back ache- normal for her. No headache. PAST MEDICAL HISTORY: PAST MEDICAL HISTORY 10/13/2013: Abdominal pain, other specified site No date: Asthma Comment: since early twenties No date: Depressive disorder, not elsewhere classified Comment: Counseling center, Dr. Mancuso No date: GERD (gastroesophageal reflux disease) 01/2023: IFG (impaired fasting glucose) 08/04/2013: Low back pain 06/2016: Marijuana use No date: Mixed hyperlipidemia Comment: Hyperlipidemia 03/28/2013: Obesity (BMI 30-39.9) 08/04/2013: Thoracic back pain No date: Unspecified hypothyroidism 05/04/2014: UTI (lower urinary tract infection) PAST SURGICAL HISTORY 08/19/2010: BREAST SURGERY PROCEDURE UNLISTED Comment: nonhealing ulcer right breast, skin graft, MRSA + 02/12/2010: COLONOSCOPY Comment: [facility], + internal hemorrhoids 04/26/2020: LAPAROSCOPY SURG CHOLECYSTECTOMY Comment: Cholecystectomy, lap 05/11/2012: LUMPECTOMY/RADIOTHERAPY DIAG MAMM/A10 Comment: left breast, Dr. Silva 09/11/2011: LUMPECTOMY/RADIOTHERAPY DIAG MAMM/A10 Comment: right breast, Dr. Silva No date: PAST SURGICAL HISTORY OF Comment: teeth extraction 04/26/10: REDUCTION OF LARGE BREAST Comment: Performed by SHRUTHI ALBARRAN at [facility] ALLERGIES Adhesive Tape (Rosins), Bactrim Ds [Sulfamethoxazole-Trimethoprim], Bee Venom Protein (Honey Bee), Niaspan [Niacin (Antihyperlipidemic)], and Penicillins MEDICATIONS Current Outpatient Medications Medication Sig Cholecalciferol, Vitamin D3, 125 mcg (5,000 unit) cap Take 1 capsule by mouth once daily. lansoprazole (PREVACID) 15 mg capsule Take 2 capsules by mouth once daily. albuterol HFA (VENTOLIN HFA) 90 mcg/actuation inhaler INHALE 2 PUFFS EVERY FOUR HOURS NEEDED FOR WHEEZING/SHORTNESS OF BREATH budesonide-formoterol (SYMBICORT) 160-4.5 mcg/actuation inhaler Inhale 2 Puffs as instructed two times a day. atorvastatin (LIPITOR) 40 mg tablet Take 1 tablet by mouth daily at bedtime. tiotropium bromide (SPIRIVA RESPIMAT) 2.5 mcg/actuation inhaler INHALE TWO PUFFS BY MOUTH EVERY DAY levothyroxine (SYNTHROID) 125 mcg tablet Take 1 tablet by mouth 6 days per week and a half tablet by mouth 1 day per week. Take on empty stomach. For Thyroid oxybutynin ER (DITROPAN XL) 10 mg 24 hr tablet Take 1 tablet by mouth once daily. dupilumab (DUPIXENT PEN) 300 mg/2 mL pen injection Inject 300mg (1 pen) subcutaneously every 2 weeks. albuterol (PROVENTIL) 2.5 mg /3 mL (0.083 %) nebulizer solution Use 3 mL via nebulizer every 4 hours as needed for wheezing/shortness of breath. Use over 5-15minutes. phenazopyridine (PYRIDIUM) 200 mg tablet Take 1 tablet by mouth three times a day as needed. triamcinolone acetonide (KENALOG) 0.1 % cream Apply to affected areas twice daily up to 5 days per week, as needed for itching. Do not apply to face, armpits or groin. acetylcysteine (NAC) 600 mg capsule Take 1 capsule by mouth two times a day. Arm Brace (WRIST BRACE LARGE) misc 1 Each once daily. At bedtime Nebulizer and Compressor For Neb 1 Each every 4 hours as needed. ibuprofen (MOTRIN) 800 mg tablet Take 1 tablet by mouth every 8 hours as needed for pain. L. acidophilus-L. rhamnosus 15 billion cell cap Take 1 capsule by mouth once daily. Keep in the refrigerator. venlafaxine ER (EFFEXOR XR) 75 mg 24 hr capsule Take 1 capsule by mouth twice daily. (Patient taking differently: Take 150 mg by mouth two times a day.) polyethylene glycol 3350 (MIRALAX) 17 gram/dose powder Take 17 g by mouth as needed. Take 1 dose daily PO fluticasone (FLONASE) 50 mcg/actuation nasal spray Use 2 Sprays in each nostril once daily. Rinse mouth after use. QUEtiapine (SEROQUEL) 50 mg tablet Take 50 mg by mouth twice daily. hydrOXYzine HCl (ATARAX) 25 mg tablet Take 1 tablet by mouth every 6 hours as needed for Itching/Rash. COMPOUNDED PRESCRIPTION Nebulizer Machine Dx: Asthma 493 (Patient taking differently: as needed. Nebulizer Machine Dx: Asthma 493) No current facility-administered medications for this visit. FAMILY HISTORY Problem Relation Age of Onset Stroke Mother Emphysema Mother Heart Father 50 Diabetes Father Asthma Sister Hypertension Maternal Grandmother Stroke Maternal Grandmother Heart Maternal Grandfather Diabetes Maternal Grandfather Social History Tobacco Use Smoking status: Every Day Packs/day: 0.50 Years: 30.00 Additional pack years: 0.00 Total pack years: 15.00 Types: Cigarettes Smokeless tobacco: Never Vaping Use Vaping Use: Never used Substance Use Topics Alcohol use: Yes Comment: occasional 1-2 drinks Drug use: Yes Types: Marijuana Comment: In the past EXAM: BP 104/64 Pulse 72 Temp 36.6 C (97.8 F) Wt 76.2 kg (168 lb) LMP 06/21/2018 BMI 33.93 kg/m PHYSICAL EXAM: Physical Exam Vitals reviewed. Constitutional: Appearance: Normal appearance. HENT: Head: Normocephalic. Cardiovascular: Rate and Rhythm: Normal rate and regular rhythm. Pulses: Normal pulses. Heart sounds: Normal heart sounds. Pulmonary: Effort: Pulmonary effort is normal. Breath sounds: Normal breath sounds. Abdominal: Palpations: Abdomen is soft. Musculoskeletal: Comments: Right elbow with an abrasion that is dime sized, granulating. Scab formation. Mild amount of edema, no drainage. Rawlins, not red. Neurological: Mental Status: She is alert. LABS: urine with blood and leukocytes ASSESSMENT/PLAN: 1. Dysuria - ICD9: 788.1, ICD10: R30.0 acute - Patient education for prevention given - UA DIP B/O - Send culture - Nitrofurantoin 2 x day for 7 days 2. Abrasion, elbow w/o infection - ICD9: 913.0, ICD10: S50.319A mending - MUPIROCIN 2 % TOPICAL OINTMENT Discussed treatment plan and patient voices understanding. Patient's questions answered appropriately. Medications and potential side effects were discussed and patient voices understanding. Return to the office as scheduled or as needed for worsening/no improvement. Mary Subramanian APRN.CNP documented in this encounter [facility] 04-01-2024 Telephone encounter Note [facility] calls to request a refill of levothyroxine. Patient has active refills at [facility]. Will wait to hear from patient if she has any needs. [facility] 04-01-2024 Miscellaneous Notes [facility] calls to request a refill of levothyroxine. Patient has active refills at [facility]. Will wait to hear from patient if she has any needs. documented in this encounter [facility] 04-01-2024 Telephone encounter Note Patient calls to request a copy of order be faxed to [facility]. Patient is currently residing in a fdc. Verified with [facility] (fdc staff) that for them to be able to allow patient to administer medication in the home they need a copy of the order. Faxed order to [facility] as requested. Rebekah Cao RN [facility] 04-01-2024 Miscellaneous Notes Patient calls to request a copy of order be faxed to [facility]. Patient is currently residing in a fdc. Verified with [facility] (fdc staff) that for them to be able to allow patient to administer medication in the home they need a copy of the order. Faxed order to [facility] as requested. Rebekah Cao RN documented in this encounter [facility] 03-23-2024 Telephone encounter Note The following approved medication requests have been transmitted electronically. Requested Prescriptions Signed Prescriptions Disp Refills Cholecalciferol, Vitamin D3, 125 mcg (5,000 unit) cap 30 capsule 2 Sig: Take 1 capsule by mouth once daily. Authorizing Provider: MIRANDA DELAROSA lansoprazole (PREVACID) 15 mg capsule 60 capsule 11 Sig: Take 2 capsules by mouth once daily. Authorizing Provider: MIRANDA DELAROSA albuterol HFA (VENTOLIN HFA) 90 mcg/actuation inhaler 18 g 5 Sig: INHALE 2 PUFFS EVERY FOUR HOURS NEEDED FOR WHEEZING/SHORTNESS OF BREATH Authorizing Provider: MIRANDA DELAROSA budesonide-formoterol (SYMBICORT) 160-4.5 mcg/actuation inhaler 10.2 g 3 Sig: Inhale 2 Puffs as instructed two times a day. Authorizing Provider: MIRANDA DELAROSA atorvastatin (LIPITOR) 40 mg tablet 30 tablet 11 Sig: Take 1 tablet by mouth daily at bedtime. Authorizing Provider: MIRANDA DELAROSA tiotropium bromide (SPIRIVA RESPIMAT) 2.5 mcg/actuation inhaler 4 g 3 Sig: INHALE TWO PUFFS BY MOUTH EVERY DAY Authorizing Provider: MIRANDA DELAROSA levothyroxine (SYNTHROID) 125 mcg tablet 30 tablet 5 Sig: Take 1 tablet by mouth 6 days per week and a half tablet by mouth 1 day per week. Take on empty stomach. For Thyroid Authorizing Provider: MIRANDA DELAROSA oxybutynin ER (DITROPAN XL) 10 mg 24 hr tablet 30 tablet 11 Sig: Take 1 tablet by mouth once daily. Authorizing Provider: MIRANDA DELAROSA APRN.CNP [facility] 03-23-2024 Miscellaneous Notes The following approved medication requests have been transmitted electronically. Requested Prescriptions Signed Prescriptions Disp Refills Cholecalciferol, Vitamin D3, 125 mcg (5,000 unit) cap 30 capsule 2 Sig: Take 1 capsule by mouth once daily. Authorizing Provider: MIRANDA DELAROSA lansoprazole (PREVACID) 15 mg capsule 60 capsule 11 Sig: Take 2 capsules by mouth once daily. Authorizing Provider: MIRANDA DELAROSA albuterol HFA (VENTOLIN HFA) 90 mcg/actuation inhaler 18 g 5 Sig: INHALE 2 PUFFS EVERY FOUR HOURS NEEDED FOR WHEEZING/SHORTNESS OF BREATH Authorizing Provider: MIRANDA DELAROSA budesonide-formoterol (SYMBICORT) 160-4.5 mcg/actuation inhaler 10.2 g 3 Sig: Inhale 2 Puffs as instructed two times a day. Authorizing Provider: MIRANDA DELAROSA atorvastatin (LIPITOR) 40 mg tablet 30 tablet 11 Sig: Take 1 tablet by mouth daily at bedtime. Authorizing Provider: MIRANDA DELAROSA tiotropium bromide (SPIRIVA RESPIMAT) 2.5 mcg/actuation inhaler 4 g 3 Sig: INHALE TWO PUFFS BY MOUTH EVERY DAY Authorizing Provider: MIRANDA DELAROSA levothyroxine (SYNTHROID) 125 mcg tablet 30 tablet 5 Sig: Take 1 tablet by mouth 6 days per week and a half tablet by mouth 1 day per week. Take on empty stomach. For Thyroid Authorizing Provider: MIRANDA DELAROSA oxybutynin ER (DITROPAN XL) 10 mg 24 hr tablet 30 tablet 11 Sig: Take 1 tablet by mouth once daily. Authorizing Provider: MIRANDA DELAROSA APRN.VINEYARDIST Received a call from [facility]. Pt is now in a fdc (PH: [phone]). Arelis requesting medications below to all be sent to [facility] for pre packing. (30) days at a time with refills. Meds to be removed from med list per Arelis/Kevin who was with Arelis. Acetylcysteine - did not work Albuterol nebulizer solution - on list twice Flonase Atarax Motrin Acidophilus Nebulizer Phenazopyridine Miralax Kenalog Changes to med - Dr. Day made changes and prescribes Quetiapine 50 mg taking 1 at bedtime Venlafaxine ER 75 taking 1 per day Venlafaxine 150 mg taking 1 per day The patient has been identified by name and date of : Yes Caregiver verified no other encounters exist for this prescription request: Yes Caregiver confirmed with patient/requestor that no other refills are due, in the near future, with this provider at this time: Yes The last office visit in the department: 10/28/2023 Does the patient have a future office visit with this provider/department: Yes 04/29/2024 Requested Prescriptions Pending Prescriptions Disp Refills Cholecalciferol, Vitamin D3, 125 mcg (5,000 unit) cap 30 capsule 2 Sig: Take 1 capsule by mouth once daily. lansoprazole (PREVACID) 15 mg capsule 60 capsule 11 Sig: Take 2 capsules by mouth once daily. albuterol HFA (VENTOLIN HFA) 90 mcg/actuation inhaler 18 g 5 Sig: INHALE 2 PUFFS EVERY FOUR HOURS NEEDED FOR WHEEZING/SHORTNESS OF BREATH budesonide-formoterol (SYMBICORT) 160-4.5 mcg/actuation inhaler 10.2 g 3 Sig: Inhale 2 Puffs as instructed two times a day. atorvastatin (LIPITOR) 40 mg tablet 30 tablet 11 Sig: Take 1 tablet by mouth daily at bedtime. tiotropium bromide (SPIRIVA RESPIMAT) 2.5 mcg/actuation inhaler 4 g 3 Sig: INHALE TWO PUFFS BY MOUTH EVERY DAY levothyroxine (SYNTHROID) 125 mcg tablet 30 tablet 5 Sig: Take 1 tablet by mouth 6 days per week and a half tablet by mouth 1 day per week. Take on empty stomach. For Thyroid oxybutynin ER (DITROPAN XL) 10 mg 24 hr tablet 30 tablet 11 Sig: Take 1 tablet by mouth once daily. Arlin Vargas LPN March 23, 2024 11:19 AM documented in this encounter [facility] 03-23-2024 Telephone encounter Note Received a call from Arelis Morales LPN with [facility]. Pt is now in a fdc (PH: [phone]). Arelis requesting medications below to all be sent to [facility] for pre packing. (30) days at a time with refills. Meds to be removed from med list per Arelis/Kevin who was with Arelis. Acetylcysteine - did not work Albuterol nebulizer solution - on list twice Flonase Atarax Motrin Acidophilus Nebulizer Phenazopyridine Miralax Kenalog Changes to med - Dr. Day made changes and prescribes Quetiapine 50 mg taking 1 at bedtime Venlafaxine ER 75 taking 1 per day Venlafaxine 150 mg taking 1 per day The patient has been identified by name and date of : Yes Caregiver verified no other encounters exist for this prescription request: Yes Caregiver confirmed with patient/requestor that no other refills are due, in the near future, with this provider at this time: Yes The last office visit in the department: 10/28/2023 Does the patient have a future office visit with this provider/department: Yes 04/29/2024 Requested Prescriptions Pending Prescriptions Disp Refills Cholecalciferol, Vitamin D3, 125 mcg (5,000 unit) cap 30 capsule 2 Sig: Take 1 capsule by mouth once daily. lansoprazole (PREVACID) 15 mg capsule 60 capsule 11 Sig: Take 2 capsules by mouth once daily. albuterol HFA (VENTOLIN HFA) 90 mcg/actuation inhaler 18 g 5 Sig: INHALE 2 PUFFS EVERY FOUR HOURS NEEDED FOR WHEEZING/SHORTNESS OF BREATH budesonide-formoterol (SYMBICORT) 160-4.5 mcg/actuation inhaler 10.2 g 3 Sig: Inhale 2 Puffs as instructed two times a day. atorvastatin (LIPITOR) 40 mg tablet 30 tablet 11 Sig: Take 1 tablet by mouth daily at bedtime. tiotropium bromide (SPIRIVA RESPIMAT) 2.5 mcg/actuation inhaler 4 g 3 Sig: INHALE TWO PUFFS BY MOUTH EVERY DAY levothyroxine (SYNTHROID) 125 mcg tablet 30 tablet 5 Sig: Take 1 tablet by mouth 6 days per week and a half tablet by mouth 1 day per week. Take on empty stomach. For Thyroid oxybutynin ER (DITROPAN XL) 10 mg 24 hr tablet 30 tablet 11 Sig: Take 1 tablet by mouth once daily. Arlin Vargas LPN March 23, 2024 11:19 AM [facility] 02-26-2024 Telephone encounter Note Prescription Refill Information The patient has been identified by name and date of : Yes Caregiver verified no other encounters exist for this prescription request: Yes Caregiver confirmed with patient/requestor that no other refills are due, in the near future, with this provider at this time: Yes The last office visit in the department: 10/28/23 Does the patient have a future office visit with this provider/department: Yes 72 Requested Prescriptions Pending Prescriptions Disp Refills lansoprazole (PREVACID) 15 mg capsule 60 capsule 11 Sig: Take 2 capsules by mouth once daily. Cholecalciferol, Vitamin D3, 125 mcg (5,000 unit) cap 30 capsule 2 Sig: Take 1 capsule by mouth once daily. Arlin Vargas LPN February 26, 2024 2:31 PM [facility] 02-26-2024 Miscellaneous Notes Prescription Refill Information The patient has been identified by name and date of : Yes Caregiver verified no other encounters exist for this prescription request: Yes Caregiver confirmed with patient/requestor that no other refills are due, in the near future, with this provider at this time: Yes The last office visit in the department: 10/28/23 Does the patient have a future office visit with this provider/department: Yes 72 Requested Prescriptions Pending Prescriptions Disp Refills lansoprazole (PREVACID) 15 mg capsule 60 capsule 11 Sig: Take 2 capsules by mouth once daily. Cholecalciferol, Vitamin D3, 125 mcg (5,000 unit) cap 30 capsule 2 Sig: Take 1 capsule by mouth once daily. Arlin Vargas LPN February 26, 2024 2:31 PM documented in this encounter [facility] 02-17-2024 Telephone encounter Note Pt requesting this be sent to the pharmacy before Thursday. She gets her medications delivered on Thursday. Arlin Vargas LPN The patient has been identified by name and date of : Yes Caregiver verified no other encounters exist for this prescription request: Yes Caregiver confirmed with patient/requestor that no other refills are due, in the near future, with this provider at this time: Yes The last office visit in the department: 10/28/2023 Does the patient have a future office visit with this provider/department: Yes 02/23/2024 Requested Prescriptions Pending Prescriptions Disp Refills albuterol HFA (VENTOLIN HFA) 90 mcg/actuation inhaler 18 g 5 Sig: INHALE 2 PUFFS EVERY FOUR HOURS NEEDED FOR WHEEZING/SHORTNESS OF BREATH budesonide-formoterol (SYMBICORT) 160-4.5 mcg/actuation inhaler 10.2 g 3 Sig: Inhale 2 Puffs as instructed two times a day. tiotropium bromide (SPIRIVA RESPIMAT) 2.5 mcg/actuation inhaler 4 g 3 Sig: INHALE TWO PUFFS BY MOUTH EVERY DAY Arlin Vargas LPN February 17, 2024 10:52 AM [facility] 02-17-2024 Miscellaneous Notes Pt requesting this be sent to the pharmacy before Thursday. She gets her medications delivered on Thursday. Arlin Vargas LPN The patient has been identified by name and date of : Yes Caregiver verified no other encounters exist for this prescription request: Yes Caregiver confirmed with patient/requestor that no other refills are due, in the near future, with this provider at this time: Yes The last office visit in the department: 10/28/2023 Does the patient have a future office visit with this provider/department: Yes 02/23/2024 Requested Prescriptions Pending Prescriptions Disp Refills albuterol HFA (VENTOLIN HFA) 90 mcg/actuation inhaler 18 g 5 Sig: INHALE 2 PUFFS EVERY FOUR HOURS NEEDED FOR WHEEZING/SHORTNESS OF BREATH budesonide-formoterol (SYMBICORT) 160-4.5 mcg/actuation inhaler 10.2 g 3 Sig: Inhale 2 Puffs as instructed two times a day. tiotropium bromide (SPIRIVA RESPIMAT) 2.5 mcg/actuation inhaler 4 g 3 Sig: INHALE TWO PUFFS BY MOUTH EVERY DAY Arlin Vargas LPN February 17, 2024 10:52 AM documented in this encounter [facility] 01-26-2024 Telephone encounter Note 1 month refill provided for patient. Patient has follow up scheduled with Sheyla Ramirez APRN.CNP. on 02/26/2024 for further refills. Ольга Whitaker PA-C [facility] 01-26-2024 Miscellaneous Notes 1 month refill provided for patient. Patient has follow up scheduled with Sheyla Ramirez APRN.CNP. on 02/26/2024 for further refills. Ольга Whitaker PA-C Patient needs refill of Dupixent Date of Kevin Post's last Dermatology office visit: 08/04/23 Next appointment date: 02/26/24 Last labs: 08/25/23 Requested Prescriptions Pending Prescriptions Disp Refills dupilumab (DUPIXENT PEN) 300 mg/2 mL pen injection 4 mL 5 Sig: Inject 300 mg subcutaneously every 2 weeks. Patient prefers: [facility] Thank you! Mary Hatch, PharmD Clinical Pharmacist, [employer] [facility] ; Pool: P [facility] Pool #: [id number] documented in this encounter [facility] 01-26-2024 Telephone encounter Note Patient needs refill of Dupixent Date of Kevin Post's last Dermatology office visit: 08/04/23 Next appointment date: 02/26/24 Last labs: 08/25/23 Requested Prescriptions Pending Prescriptions Disp Refills dupilumab (DUPIXENT PEN) 300 mg/2 mL pen injection 4 mL 5 Sig: Inject 300 mg subcutaneously every 2 weeks. Patient prefers: [facility] Thank you! Ambreen MorenoD Clinical Pharmacist, [employer] [facility] ; Pool: P [facility] Pool #: [id number] [facility] 01-26-2024 Telephone encounter Note Patient has been identified by name and date of : Yes, Patient phones for refill(s): Requested Prescriptions Pending Prescriptions Disp Refills atorvastatin (LIPITOR) 40 mg tablet [Pharmacy Med Name: atorvastatin 40 mg tablet] 90 tablet 3 Sig: take one tablet by mouth at bedtime Date of last office visit in primary care: 10/28/2023 Date of next office visit in primary care: 02/23/2024 Please advise. Thank you. Mary Chen LPN. [facility] 01-26-2024 Miscellaneous Notes Patient has been identified by name and date of : Yes, Patient phones for refill(s): Requested Prescriptions Pending Prescriptions Disp Refills atorvastatin (LIPITOR) 40 mg tablet [Pharmacy Med Name: atorvastatin 40 mg tablet] 90 tablet 3 Sig: take one tablet by mouth at bedtime Date of last office visit in primary care: 10/28/2023 Date of next office visit in primary care: 02/23/2024 Please advise. Thank you. Mary Chen LPN. documented in this encounter [facility] 01-14-2024 Telephone encounter Note Pt informed, verbalized understanding. Mel Palmer MA [facility] 01-14-2024 Miscellaneous Notes Pt informed, verbalized understanding. Mel Palmer MA Please let her know that I placed her lab orders. Please let her know that I would like her to have these completed 1-2 weeks prior to her appointment in February, not right now. Stefan Washington APRN.CNP Kevin is calling Stefan Washington APRN.CNP today to request Lab Orders. She states she has been back on her medications for over a month and needs her blood work done. Patient has been identified by name and birthdate. Duration of symptoms: N/A Person calling: self Call patient at: at home [phone] (home) [phone] (cell) Was an appointment scheduled: No Closing statement: Randi Lobo documented in this encounter [facility] 01-13-2024 Telephone encounter Note Please let her know that I placed her lab orders. Please let her know that I would like her to have these completed 1-2 weeks prior to her appointment in February, not right now. Stefan Washington APRN.CNP [facility] 01-13-2024 Telephone encounter Note Kevin is calling Stefan Washington APRN.CNP today to request Lab Orders. She states she has been back on her medications for over a month and needs her blood work done. Patient has been identified by name and birthdate. Duration of symptoms: N/A Person calling: self Call patient at: at home [phone] (home) [phone] (cell) Was an appointment scheduled: No Closing statement: Randi Lobo [facility] Work Phone: 01-13-2024 Telephone encounter Note Patient has been identified by name and date of : Yes, Provider Dr. Quinton Patricio 01-13-24 Time 10:49A Patient phones for refill(s): Requested Prescriptions Pending Prescriptions Disp Refills albuterol HFA (VENTOLIN HFA) 90 mcg/actuation inhaler 18 g 5 Sig: INHALE 2 PUFFS EVERY FOUR HOURS NEEDED FOR WHEEZING/SHORTNESS OF BREATH Date of last office visit in primary care: 10/28/2023 Date of next office visit in primary care: 02/23/2024 Please advise. Thank you. Randi Lobo. [facility] Work Phone: 01-13-2024 Miscellaneous Notes Patient has been identified by name and date of : Yes, Provider Dr. Quinton Patricio 01-13-24 Time 10:49A Patient phones for refill(s): Requested Prescriptions Pending Prescriptions Disp Refills albuterol HFA (VENTOLIN HFA) 90 mcg/actuation inhaler 18 g 5 Sig: INHALE 2 PUFFS EVERY FOUR HOURS NEEDED FOR WHEEZING/SHORTNESS OF BREATH Date of last office visit in primary care: 10/28/2023 Date of next office visit in primary care: 02/23/2024 Please advise. Thank you. Randi Lobo. documented in this encounter [facility] 01-01-2024 Telephone encounter Note Pt martin a refill last February for a years supply. Refill was refused and pt was notified of such. She will call pharmacy for refill. [facility] 01-01-2024 Miscellaneous Notes Pt martin a refill last February for a years supply. Refill was refused and pt was notified of such. She will call pharmacy for refill. Patient has been identified by name and date of : Yes, Provider [facility] phones for refill(s): Requested Prescriptions Pending Prescriptions Disp Refills lansoprazole (PREVACID) 15 mg capsule 60 capsule 11 Sig: Take 2 capsules by mouth once daily. Date of last office visit in primary care: 10/28/2023 Date of next office visit in primary care: 02/23/2024 Please advise. Thank you. Rafia Lobo. documented in this encounter [facility] 01-01-2024 Telephone encounter Note Patient has been identified by name and date of : Yes, Provider [facility] phones for refill(s): Requested Prescriptions Pending Prescriptions Disp Refills lansoprazole (PREVACID) 15 mg capsule 60 capsule 11 Sig: Take 2 capsules by mouth once daily. Date of last office visit in primary care: 10/28/2023 Date of next office visit in primary care: 02/23/2024 Please advise. Thank you. Rafia Lobo. [facility] 12-29-2023 History of Present illness Narrative [facility] Refill Assessment Medication(s): Dupixent Patient's current medication list and adherence status to current therapy were reviewed by Specialty Pharmacy clinical pharmacist to identify any new drug interactions or non-compliance to therapy. Therapy continues to be appropriate for disease, patient response, and medical condition. Verification of therapeutic benefit and effectiveness with current therapy was completed. Adverse events, barriers in adherence, and side effects were assessed and addressed if applicable. Will proceed with refill with no changes in therapy - patient progressing towards achieving therapeutic goals based on medication-specific laboratory parameters, disease state markers and outcomes. Practice Managers Assessment Patient confirmed: Yes Med/dose confirmed: Yes Supplies needed: No supplies needed Missed doses: No Estimated days supply on hand: 0 Next cycle/dose due: 01/08/24 (injected last dose 12/24) Copay amount: 0 Delivery method: FedEx Signature required: Waived on patient request Delivery address: [address] [place] [id number] Delivery date: 01/05/24 Questions or concerns for the pharmacist?: No Current Outpatient Medications on File Prior to Visit Medication Sig Cholecalciferol, Vitamin D3, 125 mcg (5,000 unit) cap Take 1 capsule by mouth once daily. albuterol (PROVENTIL) 2.5 mg /3 mL (0.083 %) nebulizer solution Use 3 mL via nebulizer every 4 hours as needed for wheezing/shortness of breath. Use over 5-15minutes. tiotropium bromide (SPIRIVA RESPIMAT) 2.5 mcg/actuation inhaler INHALE TWO PUFFS BY MOUTH EVERY DAY phenazopyridine (PYRIDIUM) 200 mg tablet Take 1 tablet by mouth three times a day as needed. levothyroxine (SYNTHROID) 125 mcg tablet Take 1 tablet by mouth 6 days per week and a half tablet by mouth 1 day per week. Take on empty stomach. For Thyroid oxybutynin ER (DITROPAN XL) 10 mg 24 hr tablet Take 1 tablet by mouth once daily. triamcinolone acetonide (KENALOG) 0.1 % cream Apply to affected areas twice daily up to 5 days per week, as needed for itching. Do not apply to face, armpits or groin. acetylcysteine (NAC) 600 mg capsule Take 1 capsule by mouth two times a day. dupilumab 300 mg/2 mL subcutaneous pen injector (Register My Info) Inject 600 mg (2 pens) for first dose (day 1), then 300 mg (1 pen) every 2 weeks (on day 15 and every 2 weeks thereafter) Arm Brace (WRIST BRACE LARGE) misc 1 Each once daily. At bedtime albuterol HFA (VENTOLIN HFA) 90 mcg/actuation inhaler INHALE 2 PUFFS EVERY FOUR HOURS NEEDED FOR WHEEZING/SHORTNESS OF BREATH atorvastatin (LIPITOR) 40 mg tablet Take 1 tablet by mouth once daily. lansoprazole (PREVACID) 15 mg capsule Take 2 capsules by mouth once daily. Nebulizer and Compressor For Neb 1 Each every 4 hours as needed. ibuprofen (MOTRIN) 800 mg tablet Take 1 tablet by mouth every 8 hours as needed for pain. budesonide-formoterol (SYMBICORT) 160-4.5 mcg/actuation inhaler Inhale 2 Puffs as instructed twice daily. L. acidophilus-L. rhamnosus 15 billion cell cap Take 1 capsule by mouth once daily. Keep in the refrigerator. venlafaxine ER (EFFEXOR XR) 75 mg 24 hr capsule Take 1 capsule by mouth twice daily. (Patient taking differently: Take 150 mg by mouth two times a day.) polyethylene glycol 3350 (MIRALAX) 17 gram/dose powder Take 17 g by mouth as needed. Take 1 dose daily PO fluticasone (FLONASE) 50 mcg/actuation nasal spray Use 2 Sprays in each nostril once daily. Rinse mouth after use. QUEtiapine (SEROQUEL) 50 mg tablet Take 50 mg by mouth twice daily. hydrOXYzine HCl (ATARAX) 25 mg tablet Take 1 tablet by mouth every 6 hours as needed for Itching/Rash. COMPOUNDED PRESCRIPTION Nebulizer Machine Dx: Asthma 493 (Patient taking differently: as needed. Nebulizer Machine Dx: Asthma 493) No current facility-administered medications on file prior to visit. [facility] Visit Assessment - Inflammatory Conditions: Assessment to use: Refill Vaccination Assessment: Date of influenza vaccination reminder: 08/07/2023 Date of most recent vaccination assessment: 08/07/2023 Treatment Plan Information: Treatment Plan Information: Dupixent 300mg/2mL pens Inject 600 mg (2 pens) for first dose (day 1), then 300 mg (1 pen) every 2 weeks (on day 15 and every 2 weeks thereafter) Estimated Treatment Duration: Until loss of efficacy and/or no longer tolerated. Hailee Donnelly CPhT [facility] Cardiology, [facility] Infectious Disease P: [phone] F: [phone] documented in this encounter [facility] 12-04-2023 Miscellaneous Notes Patient has been identified by name and date of : Patient phones for refill(s): Requested Prescriptions Pending Prescriptions Disp Refills albuterol (PROVENTIL) 2.5 mg /3 mL (0.083 %) nebulizer solution Sig: Use 3 mL via nebulizer every 4 hours as needed for wheezing/shortness of breath. Use over 5-15minutes. Date of last office visit in primary care: 10/28/2023 Date of next office visit in primary care: 02/23/2024 Please advise. Thank you. Katherine Garcia. documented in this encounter [facility] 12-04-2023 Miscellaneous Notes Patient has been identified by name and date of : Patient phones for refill(s): Requested Prescriptions Pending Prescriptions Disp Refills Cholecalciferol, Vitamin D3, 125 mcg (5,000 unit) cap 30 capsule 2 Sig: Take 1 capsule by mouth once daily. Date of last office visit in primary care: 10/28/2023 Date of next office visit in primary care: 02/23/2024 Please advise. Thank you. Katherine Garcia. documented in this encounter [facility] 11-30-2023 History of Present illness Narrative 3rd Attempt to schedule consult for GS. LVM 2 nd attempt left message to return call to arrange consult for colonoscopy 04-03 .. First failed attempt to schedule colon consult. LVM to return. Rachel Lr COLONOSCOPY PATIENT OUTREACH Action/ Colonoscopy Recall Patient identified by Name and : Yes. OUTREACH OUTCOME ACTION: Consult- Telephone Call- Pt is overdue for screening colonoscopy. Pt needs consult due to medical history and/or medications. Please call patient and schedule appointment with General Surgery Provider. Taylor Her RN documented in this encounter [facility] 11-25-2023 Miscellaneous Notes Patient has been identified by name and date of : Pharmacy phones for refill(s): Requested Prescriptions Pending Prescriptions Disp Refills tiotropium bromide (SPIRIVA RESPIMAT) 2.5 mcg/actuation inhaler 4 g 3 Sig: INHALE TWO PUFFS BY MOUTH EVERY DAY Date of last office visit in primary care: 10/28/2023 Date of next office visit in primary care: 02/23/2024 Please advise. Thank you. Stephy Salguero RN. documented in this encounter [facility] 10-28-2023 History of Present illness Narrative Chief Complaint Patient presents with: Acute Visit: UTI symptoms- frequent urination, urgency to urinate x2 weeks; no pain with urination, no discharge HPI Kevin Post is a 53 year old female who presents here today for Above Complaints. Currently: Urinary sx x2 weeks. Urgency and frequency. No burning or discharge, no blood in urine. Denies fevers. Has been drinking quite a bit of Pepsi-between herself and brother went through a 12-pack yesterday. Past medical history, appointments, medications, allergies reviewed. Previous Medical History PAST MEDICAL HISTORY Diagnosis Date Abdominal pain, other specified site 10/13/2013 Asthma since early twenties Depressive disorder, not elsewhere classified Counseling center, Dr. Mancuso GERD (gastroesophageal reflux disease) IFG (impaired fasting glucose) 01/2023 Low back pain 08/04/2013 Marijuana use 06/2016 Mixed hyperlipidemia Hyperlipidemia Obesity (BMI 30-39.9) 03/28/2013 Thoracic back pain 08/04/2013 Unspecified hypothyroidism UTI (lower urinary tract infection) 05/04/2014 Previous Surgical History PAST SURGICAL HISTORY Procedure Laterality Date BREAST SURGERY PROCEDURE UNLISTED 08/19/2010 nonhealing ulcer right breast, skin graft, MRSA + COLONOSCOPY 02/12/2010 [facility], + internal hemorrhoids LAPAROSCOPY SURG CHOLECYSTECTOMY 04/26/2020 Cholecystectomy, lap LUMPECTOMY/RADIOTHERAPY DIAG MAMM/A10 05/11/2012 left breast, Dr. Silva LUMPECTOMY/RADIOTHERAPY DIAG MAMM/A10 09/11/2011 right breast, Dr. Silva PAST SURGICAL HISTORY OF teeth extraction REDUCTION OF LARGE BREAST 04/26/10 Performed by SHRUTHI ALBARRAN at [facility] Family History FAMILY HISTORY Problem Relation Age of Onset Stroke Mother Emphysema Mother Heart Father 50 Diabetes Father Asthma Sister Hypertension Maternal Grandmother Stroke Maternal Grandmother Heart Maternal Grandfather Diabetes Maternal Grandfather Patient Allergies ALLERGIES Allergen Reactions Adhesive Tape (Rosa Isela* Rash Bactrim Ds [Sulfame* Hives Bee Venom Protein (* Itching Niaspan [Niacin (An* Hives Penicillins Rash Current Medications Current Outpatient Medications on File Prior to Visit Medication Sig levothyroxine (SYNTHROID) 125 mcg tablet Take 1 tablet by mouth 6 days per week and a half tablet by mouth 1 day per week. Take on empty stomach. For Thyroid Cholecalciferol, Vitamin D3, 125 mcg (5,000 unit) cap Take 1 capsule by mouth once daily. tiotropium bromide (SPIRIVA RESPIMAT) 2.5 mcg/actuation inhaler INHALE TWO PUFFS BY MOUTH EVERY DAY oxybutynin ER (DITROPAN XL) 10 mg 24 hr tablet Take 1 tablet by mouth once daily. triamcinolone acetonide (KENALOG) 0.1 % cream Apply to affected areas twice daily up to 5 days per week, as needed for itching. Do not apply to face, armpits or groin. acetylcysteine (NAC) 600 mg capsule Take 1 capsule by mouth two times a day. dupilumab 300 mg/2 mL subcutaneous pen injector (Register My Info) Inject 600 mg (2 pens) for first dose (day 1), then 300 mg (1 pen) every 2 weeks (on day 15 and every 2 weeks thereafter) Arm Brace (WRIST BRACE LARGE) misc 1 Each once daily. At bedtime albuterol HFA (VENTOLIN HFA) 90 mcg/actuation inhaler INHALE 2 PUFFS EVERY FOUR HOURS NEEDED FOR WHEEZING/SHORTNESS OF BREATH atorvastatin (LIPITOR) 40 mg tablet Take 1 tablet by mouth once daily. lansoprazole (PREVACID) 15 mg capsule Take 2 capsules by mouth once daily. Nebulizer and Compressor For Neb 1 Each every 4 hours as needed. albuterol (PROVENTIL) 2.5 mg /3 mL (0.083 %) nebulizer solution Use 3 mL via nebulizer three times daily as needed for wheezing/shortness of breath. OVER 5-15 MINUTES. FOR WHEEZING AND SHORTNESS OF BREATH. ibuprofen (MOTRIN) 800 mg tablet Take 1 tablet by mouth every 8 hours as needed for pain. budesonide-formoterol (SYMBICORT) 160-4.5 mcg/actuation inhaler Inhale 2 Puffs as instructed twice daily. albuterol (PROVENTIL) 2.5 mg /3 mL (0.083 %) nebulizer solution Use 3 mL via nebulizer every 4 hours as needed for wheezing/shortness of breath. Use over 5-15minutes. L. acidophilus-L. rhamnosus 15 billion cell cap Take 1 capsule by mouth once daily. Keep in the refrigerator. venlafaxine ER (EFFEXOR XR) 75 mg 24 hr capsule Take 1 capsule by mouth twice daily. (Patient taking differently: Take 150 mg by mouth two times a day.) polyethylene glycol 3350 (MIRALAX) 17 gram/dose powder Take 17 g by mouth as needed. Take 1 dose daily PO fluticasone (FLONASE) 50 mcg/actuation nasal spray Use 2 Sprays in each nostril once daily. Rinse mouth after use. QUEtiapine (SEROQUEL) 50 mg tablet Take 50 mg by mouth twice daily. hydrOXYzine HCl (ATARAX) 25 mg tablet Take 1 tablet by mouth every 6 hours as needed for Itching/Rash. COMPOUNDED PRESCRIPTION Nebulizer Machine Dx: Asthma 493 (Patient taking differently: as needed. Nebulizer Machine Dx: Asthma 493) No current facility-administered medications on file prior to visit. Social History Social History Tobacco Use Smoking status: Every Day Packs/day: 0.50 Years: 30.00 Additional pack years: 0.00 Total pack years: 15.00 Types: Cigarettes Smokeless tobacco: Never Vaping Use Vaping Use: Never used Substance Use Topics Alcohol use: Yes Comment: occasional 1-2 drinks Drug use: Yes Types: Marijuana Comment: In the past Review of Symptoms REVIEW OF SYSTEMS See HPI, otherwise negative EXAM: BP 108/80 Pulse 72 Resp 16 Wt 75.3 kg (166 lb) LMP 06/21/2018 BMI 33.53 kg/m General Appearance: Well appearing, alert, in no acute distress, well-hydrated, well nourished.. Lungs: Lungs clear to auscultation. No wheezing, rhonchi, rales.. Heart: RRR without murmur, gallop, or rubs. No ectopy. Abdomen: Normal abdominal exam, Abdomen soft, non-tender. Bowel sounds normal. No masses, organomegaly, Negative CVA tenderness. Psychiatric: pleasant, cooperative, hyperactive. Health Maintenance List Colorectal Cancer Screening due on 2017 Mammogram Screening due on 08/25/2023 Covid-19 Vaccine(1) due on 02/18/2024 Influenza Vaccine(1) due on 02/21/2024 DTaP,Tdap,Td Vaccine(3 - Td or Tdap) due on 04/22/2024 Shingrix Vaccine(1 of 2) due on 04/22/2024 Hepatitis B Vaccine(1 of 3 - 3-dose series) due on 08/21/2024 Annual PCP Team Chronic Disease Visit due on 08/31/2024 Diabetes Screening due on 08/25/2026 Pap Testing due on 12/06/2027 HPV Testing due on 12/06/2027 Lipid Screening due on 08/25/2028 Alpha-1 Antitrypsin Deficiency Screening Completed Spirometry Completed Hepatitis C Screening Completed HIV Screening Completed Pneumococcal Vaccine Completed Data reviewed Previous records, office notes ASSESSMENT/PLAN: 1. UTI symptoms - ICD9: 788.99, ICD10: R39.9 (primary diagnosis) - UA DIP, URINE (POC) - NITROFURANTOIN MONOHYDRATE & MACROCRYSTAL 100 MG ORAL CAP - URINE CULTURE - PHENAZOPYRIDINE 200 MG TABLET 2. Urinary frequency - ICD9: 788.41, ICD10: R35.0 - UA DIP, URINE (POC) - NITROFURANTOIN MONOHYDRATE & MACROCRYSTAL 100 MG ORAL CAP - URINE CULTURE - PHENAZOPYRIDINE 200 MG TABLET 3. Frequent urination - ICD9: 788.41, ICD10: R35.0 - UA DIP, URINE (POC) - NITROFURANTOIN MONOHYDRATE & MACROCRYSTAL 100 MG ORAL CAP - URINE CULTURE - PHENAZOPYRIDINE 200 MG TABLET 4. Screening for colon cancer - ICD9: V76.51, ICD10: Z12.11 - COLOGUAYUAN Washington APRN.VINEYARDIST documented in this encounter [facility] 10-27-2023 Miscellaneous Notes Reason for Call: suspected UTI Outcome: Patient was conferenced to [facility] for PCP scheduling within 24 hours and was advised to go to [facility], if needed. Reason for Disposition Urinating more frequently than usual (i.e., frequency) Answer Assessment - Initial Assessment Questions 1. SYMPTOM: urinary frequency and then it is small amounts 2. ONSET: 2 weeks ago 3. PAIN: none 4. CAUSE: UTI; last episode was 1 year ago 5. OTHER SYMPTOMS: none 6. : no; LMP 12 years ago Protocols used: Urinary [id number] documented in this encounter [facility] 10-20-2023 History of Present illness Narrative [facility] Refill Assessment Medication(s): Dupixent Patient's current medication list and adherence status to current therapy were reviewed by Specialty Pharmacy clinical pharmacist to identify any new drug interactions or non-compliance to therapy. Therapy continues to be appropriate for disease, patient response, and medical condition. Verification of therapeutic benefit and effectiveness with current therapy was completed. Adverse events, barriers in adherence, and side effects were assessed and addressed if applicable. Will proceed with refill with no changes in therapy - patient progressing towards achieving therapeutic goals based on medication-specific laboratory parameters, disease state markers and outcomes. Practice Managers Assessment Patient confirmed: Yes Med/dose confirmed: Yes Supplies needed: No supplies needed Missed doses: No Estimated days supply on hand: 0 Next cycle/dose due: 10/30/23 Copay amount: 0 Delivery method: FedEx Signature required: Waived on patient request Delivery address: [address] [place] [id number] (patient asked that we remove previous address and update to this one (patient's oriental orthodox).) Delivery date: 10/29/23 Questions or concerns for the pharmacist?: No [facility] Visit Assessment - Inflammatory Conditions: Assessment to use: Refill Vaccination Assessment: Date of influenza vaccination reminder: 08/07/2023 Date of most recent vaccination assessment: 08/07/2023 Treatment Plan Information: Treatment Plan Information: Dupixent 300mg/2mL pens Inject 600 mg (2 pens) for first dose (day 1), then 300 mg (1 pen) every 2 weeks (on day 15 and every 2 weeks thereafter) Estimated Treatment Duration: Until loss of efficacy and/or no longer tolerated. Zamzam Marshall ([place] [employer]) documented in this encounter [facility] 10-14-2023 Miscellaneous Notes Patient has been identified by name and date of : Pharmacy phones for refill(s): Requested Prescriptions Pending Prescriptions Disp Refills levothyroxine (SYNTHROID) 125 mcg tablet 30 tablet 5 Sig: Take 1 tablet by mouth 6 days per week and a half tablet by mouth 1 day per week. Take on empty stomach. For Thyroid Date of last office visit in primary care: 08/31/2023 Date of next office visit in primary care: 02/23/2024 Please advise. Thank you. Hattie Miranda LPN. documented in this encounter [facility] 09-29-2023 Miscellaneous Notes Patient has been identified by name and date of : Yes, Provider Dr. Alcantara Date 09/29/23 Time 4:11 pm Pharmacy phones for refill(s): Requested Prescriptions Pending Prescriptions Disp Refills Cholecalciferol, Vitamin D3, 125 mcg (5,000 unit) cap 90 capsule 2 Sig: Take 1 capsule by mouth once daily. Date of last office visit in primary care: 08/31/2023 Date of next office visit in primary care: 02/22/2024 Thank you. Arlin Vargas LPN. documented in this encounter [facility] 08-04-2023 History of Present illness Narrative [facility] received prescription(s) for Dupixent from Dr. Ca Arvizu's office. Benefits investigation was conducted, indicating that a prior authorization is required by patient's insurance plan with [employer]. Encounter will be updated once prior authorization has been submitted by [facility]. Crys Alex [facility] Gathering Worker, Specialty Pharmacy [facility] [address] / [id number] [place] [address] Email: [email or web address] documented in this encounter [facility] 08-04-2023 History of Present illness Narrative NEW PATIENT Chief Complaint: Patient presents with: Rash HPI: Kevin Post is a 53 year old female who presents today for:Patient presents with: Rash #1 Rash Location: Generalized, entire body Duration: years Symptoms: itchy bumps - patient admits to picking lesions/bumps Current Treatment: Hydroxyzine Past Treatment: Clotrimazole, Betamethasone, Hydrocortisone, Lerma's cocoa butter formula Pertinent History: History of skin cancer or atypical nevi: No Family history of skin cancer: No Organ transplant or immunosuppression: No or : No Past Medical History is reviewed. Seroquel Hydroxyzine Medication List is reviewed. ROS: Skin as above. Physical Exam: Zuniga skin type: II The patient is a pleasant female in no apparent distress. Alert and oriented x 3. A skin exam performed of the face, chest, back, abdomen, bilateral upper extremities, bilateral lower extremities, and buttocks is significant for: - multiple hypertrophic and excoriated, lichenified papules and nodules to face, trunk, and bilateral upper and lower extremities BSA: 50% Assessment and Plan: Prurigo nodularis Discussed etiology, course, prognosis and treatment options Discussed using gentle, fragrance-free skin care and frequent application of emollients. Advised NAC 600mg BID TAC 0.1% BID as directed Discussed Dupixent due to diffuse involvement and difficult managing with topicals; patient elects to proceed Follow up in 3 months R/b/a for the medication(s) including possible side effects discussed and reviewed with patient. Follow up as noted in plan or as needed. Intake: Grace Borrego LPN I have reviewed and agree with the Chief Complaint, patient-reported HPI, ROS, and Past Histories independently gathered by the clinical support service tech and the remaining scribed note accurately describes my personal service to the patient. Ca Arvizu MS, PA-C documented in this encounter [facility] 08-03-2023 Instructions Ca Arvizu PA-C - 08/03/2023 3:50 PM EST Gentle Skin Care Recommendations Bathing - limit showers to once daily, 15 minutes or less, with warm water - use gentle soaps that are free of colors and scents and are not too strong of cleansers - consider limiting soap to only the 'dirty' areas, like the armpits and groin as much as possible to prevent stripping your skin in other areas of their natural moisture - do not vigorously scrub when cleansing - avoid any soaps with microbeads - after showering, pat your skin gently dry with a towel - make sure you are applying a good moisturizer after bathing every time (see below) - do not take bubble baths Examples of Gentle Cleansers: - Dove Unscented Sensitive Bar Soap - CeraVe Hydrating Body Wash - Vanicream Cleansing Bar - Cetaphil Cleanser - Aquaphor 2 in1 Gentle Wash and Shampoo Moisturizing It is important to moisturize at least twice per day to the whole body. IMMEDIATELY after getting out of the shower, apply a moisturizer (preferably from the list below) to the entire body. If you have been prescribed any medications, apply those med ications to the skin first and then you can apply the moisturizer on top. Moisturizers come in a variety of types some of which are greasier, heavier, or guardian ad litem. The heaviest moisturizers are ointments, which are greasy like vaseline. The next best are creams, which are usually white and thick but absorb into the skin a l ittle better. The lightest are lotions which are typically thin and contain more ingredients which can be irritating to your skin. For this reason, we do NOT recommend lotions. Examples of Good Moisturizers: - Ointments: Plain Vaseline, Cerave Healing Ointment, Aquaphor, La Demetrius Posay Cicaplast Baume B5 - Creams: Cerave, Vanicream, Eucerin, Aveeno Baby Eczema - Oils: [place] seed oil Laundry Be sure to use laundry products that are free of dyes and fragrances--many laundry products that claim to be fragrance-free actually are not free of these! Do not use laundry softeners or dryer sheets. Examples of Good Laundry Products: - All Free & Clear - Cheer Free - 7th generation Natural Laundry Detergent Liquid Other Gentle Skin Recommendations - Do not use products such as powders, perfumes, or colognes on your skin - Avoid saunas and steam baths - these temperatures are too hot - Avoid tight or scratchy clothing such as wool - Always wash new clothing before wearing them for the first time - Sometimes a humidifier or vaporizer, used at night can help the dry skin - but remember to keep it clean to void mold growth. - Avoid applying essential oils to the skin or diffusing in the home. documented in this encounter [facility] 07-20-2023 History of Present illness Narrative Chief Complaint Patient presents with: Same Day Appointment: urinary frequency x 1.5weeks no burning HPI Kevin Post is a 53 year old female who presents here today for Above Complaints.. Today: Feels like she has to go to the [facility] just has a little bit come out, sometimes will go normal amount. No itching, burning, odor, blood. Recently did a week in [place]. Had some high quality marijuana when she was let out and almost blacked out and was really weak and lightheaded. Wondering if this happened because she hadn't had any for several days while in [place] or because it was high quality. Only gets her daily marijuana from 2 different sources because she knows she can trust them. Past medical history, appointments, medications, allergies reviewed. Previous Medical History PAST MEDICAL HISTORY Diagnosis Date Abdominal pain, other specified site 10/13/2013 Asthma since early twenties Depressive disorder, not elsewhere classified Counseling center, Dr. Mancuso GERD (gastroesophageal reflux disease) IFG (impaired fasting glucose) 01/2023 Low back pain 08/04/2013 Marijuana use 06/2016 Mixed hyperlipidemia Hyperlipidemia Obesity (BMI 30-39.9) 03/28/2013 Thoracic back pain 08/04/2013 Unspecified hypothyroidism UTI (lower urinary tract infection) 05/04/2014 Previous Surgical History PAST SURGICAL HISTORY Procedure Laterality Date BREAST SURGERY PROCEDURE UNLISTED 08/19/2010 nonhealing ulcer right breast, skin graft, MRSA + COLONOSCOPY 02/12/2010 [facility], + internal hemorrhoids LAPAROSCOPY SURG CHOLECYSTECTOMY 04/26/2020 Cholecystectomy, lap LUMPECTOMY/RADIOTHERAPY DIAG MAMM/A10 05/11/2012 left breast, Dr. Silva LUMPECTOMY/RADIOTHERAPY DIAG MAMM/A10 09/11/2011 right breast, Dr. Silva PAST SURGICAL HISTORY OF teeth extraction REDUCTION OF LARGE BREAST 04/26/10 Performed by SH[facility] ALBARRAN at [facility] Family History FAMILY HISTORY Problem Relation Age of Onset Stroke Mother Emphysema Mother Heart Father 50 Diabetes Father Asthma Sister Hypertension Maternal Grandmother Stroke Maternal Grandmother Heart Maternal Grandfather Diabetes Maternal Grandfather Patient Allergies ALLERGIES Allergen Reactions Adhesive Tape (Rosa Isela* Rash Bactrim Ds [Sulfame* Hives Bee Venom Protein (* Itching Niaspan [Niacin (An* Hives Penicillins Rash Current Medications Current Outpatient Medications on File Prior to Visit Medication Sig levothyroxine (SYNTHROID) 125 mcg tablet Take 1 tablet by mouth 6 days per week and a half tablet by mouth 1 day per week. Take on empty stomach. For Thyroid Arm Brace (WRIST BRACE LARGE) misc 1 Each once daily. At bedtime albuterol HFA (VENTOLIN HFA) 90 mcg/actuation inhaler INHALE 2 PUFFS EVERY FOUR HOURS NEEDED FOR WHEEZING/SHORTNESS OF BREATH atorvastatin (LIPITOR) 40 mg tablet Take 1 tablet by mouth once daily. tiotropium bromide (SPIRIVA RESPIMAT) 2.5 mcg/actuation inhaler INHALE TWO PUFFS BY MOUTH EVERY DAY lansoprazole (PREVACID) 15 mg capsule Take 2 capsules by mouth once daily. Nebulizer and Compressor For Neb 1 Each every 4 hours as needed. Cholecalciferol, Vitamin D3, 125 mcg (5,000 unit) cap Take 1 capsule by mouth once daily. clotrimazole-betamethasone (LOTRISONE) cream Apply to affected area twice daily. albuterol (PROVENTIL) 2.5 mg /3 mL (0.083 %) nebulizer solution Use 3 mL via nebulizer three times daily as needed for wheezing/shortness of breath. OVER 5-15 MINUTES. FOR WHEEZING AND SHORTNESS OF BREATH. ibuprofen (MOTRIN) 800 mg tablet Take 1 tablet by mouth every 8 hours as needed for pain. oxybutynin ER (DITROPAN XL) 10 mg 24 hr tablet Take 1 tablet by mouth once daily. budesonide-formoterol (SYMBICORT) 160-4.5 mcg/actuation inhaler Inhale 2 Puffs as instructed twice daily. albuterol (PROVENTIL) 2.5 mg /3 mL (0.083 %) nebulizer solution Use 3 mL via nebulizer every 4 hours as needed for wheezing/shortness of breath. Use over 5-15minutes. L. acidophilus-L. rhamnosus 15 billion cell cap Take 1 capsule by mouth once daily. Keep in the refrigerator. venlafaxine ER (EFFEXOR XR) 75 mg 24 hr capsule Take 1 capsule by mouth twice daily. (Patient taking differently: Take 150 mg by mouth twice daily.) polyethylene glycol 3350 (MIRALAX) 17 gram/dose powder Take 17 g by mouth as needed. Take 1 dose daily PO fluticasone (FLONASE) 50 mcg/actuation nasal spray Use 2 Sprays in each nostril once daily. Rinse mouth after use. QUEtiapine (SEROQUEL) 50 mg tablet Take 50 mg by mouth twice daily. hydrOXYzine HCl (ATARAX) 25 mg tablet Take 1 tablet by mouth every 6 hours as needed for Itching/Rash. COMPOUNDED PRESCRIPTION Nebulizer Machine Dx: Asthma 493 (Patient taking differently: as needed. Nebulizer Machine Dx: Asthma 493) No current facility-administered medications on file prior to visit. Social History Social History Tobacco Use Smoking status: Every Day Packs/day: 0.50 Years: 30.00 Additional pack years: 0.00 Total pack years: 15.00 Types: Cigarettes Smokeless tobacco: Never Vaping Use Vaping Use: Never used Substance Use Topics Alcohol use: Yes Comment: occasional 1-2 drinks Drug use: Yes Types: Marijuana Comment: In the past Review of Symptoms REVIEW OF SYSTEMS See HPI, otherwise negative EXAM: BP 112/56 (BP Site: Left Arm, BP Position: Sitting, BP Cuff Size: Large Adult) Pulse 75 Temp 36.7 C (98 F) Resp 12 Ht 149.9 cm (4' 11) Wt 69.9 kg (154 lb) LMP 06/21/2018 SpO2 98% BMI 31.10 kg/m General Appearance: Well appearing, alert, in no acute distress, well-hydrated, well nourished. and mildly disheveled. Lungs: Lungs clear to auscultation. No wheezing, rhonchi, rales.. Heart: RRR without murmur, gallop, or rubs. No ectopy. Psychiatric: pleasant, cooperative. Health Maintenance List Hepatitis B Vaccine(1 of 3 - 3-dose series) Never done Colorectal Cancer Screening due on 2017 Mammogram Screening due on 08/22/2021 Influenza Vaccine(1) due on 04/24/2023 Covid-19 Vaccine(1) due on 02/18/2024 DTaP,Tdap,Td Vaccine(3 - Td or Tdap) due on 04/22/2024 Shingrix Vaccine(1 of 2) due on 04/22/2024 Annual PCP Team Chronic Disease Visit due on 07/20/2024 Diabetes Screening due on 02/17/2026 Pap Testing due on 12/06/2027 HPV Testing due on 12/06/2027 Lipid Screening due on 02/18/2028 Alpha-1 Antitrypsin Deficiency Screening Completed Spirometry Completed Hepatitis C Screening Completed HIV Screening Completed Pneumococcal Vaccine Completed Data reviewed Previous records, office notes ASSESSMENT/PLAN: 1. Dysuria - ICD9: 788.1, ICD10: R30.0 (primary diagnosis) acute - Send urine for culture - Patient education for prevention given - UA DIP, URINE (POC) - URINE CULTURE 2. Fatigue, unspecified type - ICD9: 780.79, ICD10: R53.83 Requesting disability paperwork to be completed. - PHYSICAL PERFORMANCE TEST 3. 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 - PHYSICAL PERFORMANCE TEST 4. Neck pain on left side - ICD9: 723.1, ICD10: M54.2 Requesting disability paperwork to be completed. - PHYSICAL PERFORMANCE TEST 5. Acute cystitis with hematuria - ICD9: 595.0, ICD10: N30.01 - UA DIP, URINE (POC) - NITROFURANTOIN MONOHYDRATE & MACROCRYSTAL 100 MG ORAL CAP - URINE CULTURE 6. Marijuana use - ICD9: 305.20, ICD10: F12.90 Discussed safe use and limiting use. Stefan Washington APRN.VINEYARDIST documented in this encounter [facility] 04-23-[address] [facility] 04/21/23, Dr. Rosa was to send order for inserts to [employer]. Pt states company has not received order. This RN obtained order and faxed to [phone]. documented in this encounter [facility] 04-22-2023 History of Present illness Narrative Chief Complaint Patient presents with: Pain: Lft thumb pain started about 2 weeks ago. No injury noted. HPI Kevin Post is a 53 year old female who presents here today for Above Complaints. Kevin is an established patient of Dr. Quinton DO. She is a new patient to me today. Concerns today... Thumb pain --- Pt reports L thumb pain x 2 weeks. No fall or injury. No swelling or discoloration per pt. Numbness and tingling sensation to thumb. Sometimes shooting pain sensation from wrist to thumb. Pt also reports symptoms to index and middle finger of the same hand occasionally. Symptoms seems worse at night. Family hx of carpal tunnel syndrome. No other concerns or complaints. Past medical history, appointments, medications, allergies reviewed. Previous Medical History PAST MEDICAL HISTORY Diagnosis Date Abdominal pain, other specified site 10/13/2013 Asthma since early twenties Depressive disorder, not elsewhere classified Counseling center, Dr. Mancuso GERD (gastroesophageal reflux disease) IFG (impaired fasting glucose) 01/2023 Low back pain 08/04/2013 Marijuana use 06/2016 Mixed hyperlipidemia Hyperlipidemia Obesity (BMI 30-39.9) 03/28/2013 Thoracic back pain 08/04/2013 Unspecified hypothyroidism UTI (lower urinary tract infection) 05/04/2014 Previous Surgical History PAST SURGICAL HISTORY Procedure Laterality Date BREAST SURGERY PROCEDURE UNLISTED 08/19/2010 nonhealing ulcer right breast, skin graft, MRSA + COLONOSCOPY 02/12/2010 [facility], + internal hemorrhoids LAPAROSCOPY SURG CHOLECYSTECTOMY 04/26/2020 Cholecystectomy, lap LUMPECTOMY/RADIOTHERAPY DIAG MAMM/A10 05/11/2012 left breast, Dr. Silva LUMPECTOMY/RADIOTHERAPY DIAG MAMM/A10 09/11/2011 right breast, Dr. Silva PAST SURGICAL HISTORY OF teeth extraction REDUCTION OF LARGE BREAST 04/26/10 Performed by SH[facility]HI ALBARRAN at [facility] Family History FAMILY HISTORY Problem Relation Age of Onset Stroke Mother Emphysema Mother Heart Father 50 Diabetes Father Asthma Sister Hypertension Maternal Grandmother Stroke Maternal Grandmother Heart Maternal Grandfather Diabetes Maternal Grandfather Patient Allergies ALLERGIES Allergen Reactions Adhesive Tape (Rosa Isela* Rash Bactrim Ds [Sulfame* Hives Bee Venom Protein (* Itching Niaspan [Niacin (An* Hives Penicillins Rash Current Medications Current Outpatient Medications on File Prior to Visit Medication Sig albuterol HFA (VENTOLIN HFA) 90 mcg/actuation inhaler INHALE 2 PUFFS EVERY FOUR HOURS NEEDED FOR WHEEZING/SHORTNESS OF BREATH atorvastatin (LIPITOR) 40 mg tablet Take 1 tablet by mouth once daily. tiotropium bromide (SPIRIVA RESPIMAT) 2.5 mcg/actuation inhaler INHALE TWO PUFFS BY MOUTH EVERY DAY lansoprazole (PREVACID) 15 mg capsule Take 2 capsules by mouth once daily. Nebulizer and Compressor For Neb 1 Each every 4 hours as needed. Cholecalciferol, Vitamin D3, 125 mcg (5,000 unit) cap Take 1 capsule by mouth once daily. clotrimazole-betamethasone (LOTRISONE) cream Apply to affected area twice daily. albuterol (PROVENTIL) 2.5 mg /3 mL (0.083 %) nebulizer solution Use 3 mL via nebulizer three times daily as needed for wheezing/shortness of breath. OVER 5-15 MINUTES. FOR WHEEZING AND SHORTNESS OF BREATH. ibuprofen (MOTRIN) 800 mg tablet Take 1 tablet by mouth every 8 hours as needed for pain. levothyroxine (SYNTHROID) 125 mcg tablet Take 1 tablet by mouth 6 days per week and a half tablet by mouth 1 day per week. Take on empty stomach. For Thyroid oxybutynin ER (DITROPAN XL) 10 mg 24 hr tablet Take 1 tablet by mouth once daily. budesonide-formoterol (SYMBICORT) 160-4.5 mcg/actuation inhaler Inhale 2 Puffs as instructed twice daily. albuterol (PROVENTIL) 2.5 mg /3 mL (0.083 %) nebulizer solution Use 3 mL via nebulizer every 4 hours as needed for wheezing/shortness of breath. Use over 5-15minutes. L. acidophilus-L. rhamnosus 15 billion cell cap Take 1 capsule by mouth once daily. Keep in the refrigerator. venlafaxine ER (EFFEXOR XR) 75 mg 24 hr capsule Take 1 capsule by mouth twice daily. (Patient taking differently: Take 150 mg by mouth twice daily.) polyethylene glycol 3350 (MIRALAX) 17 gram/dose powder Take 17 g by mouth as needed. Take 1 dose daily PO fluticasone (FLONASE) 50 mcg/actuation nasal spray Use 2 Sprays in each nostril once daily. Rinse mouth after use. QUEtiapine (SEROQUEL) 50 mg tablet Take 50 mg by mouth twice daily. hydrOXYzine HCl (ATARAX) 25 mg tablet Take 1 tablet by mouth every 6 hours as needed for Itching/Rash. COMPOUNDED PRESCRIPTION Nebulizer Machine Dx: Asthma 493 (Patient taking differently: as needed. Nebulizer Machine Dx: Asthma 493) No current facility-administered medications on file prior to visit. Social History Social History Tobacco Use Smoking status: Every Day Packs/day: 0.50 Years: 30.00 Additional pack years: 0.00 Total pack years: 15.00 Types: Cigarettes Smokeless tobacco: Never Vaping Use Vaping Use: Never used Substance Use Topics Alcohol use: Yes Comment: occasional 1-2 drinks Drug use: Yes Types: Marijuana Comment: In the past REVIEW OF SYSTEMS: as above Reviewed relevant PMHx, PSHx, Social Hx, current medications and allergies. Review of Symptoms REVIEW OF SYSTEMS See HPI. EXAM: BP 102/60 (BP Site: Left Arm, BP Position: Sitting, BP Cuff Size: Regular Adult) Pulse 68 Resp 12 Wt 64.1 kg (141 lb 6.4 oz) LMP 06/21/2018 BMI 26.70 kg/m General Appearance: Well appearing, alert, in no acute distress, well-hydrated, well nourished.. Skin: Skin color, texture, turgor normal, no suspicious rashes or lesions. Head: Normocephalic, no masses, lesions, tenderness or abnormalities. Lungs: Lungs clear to auscultation. No wheezing, rhonchi, rales.. Heart: RRR without murmur, gallop, or rubs. No ectopy. Extremities: No deformities, edema, skin discoloration, clubbing or cyanosis. Good capillary refill. . Musculoskeletal: No joint swelling, deformity, or tenderness. Peripheral Pulses: Normal. Health Maintenance List HEPATITIS B(1 of 3 - 3-dose series) Never done COLORECTAL CANCER SCREENING due on 2017 MAMMOGRAM due on 08/22/2021 SHINGRIX VACCINE(1 of 2) Never done DTAP,TDAP,TD(3 - Td or Tdap) due on 03/30/2023 COVID-19 VACCINE(1) due on 02/18/2024 INFLUENZA(1) due on 04/24/2023 ANNUAL PCP TEAM CHRONIC DISEASE VISIT due on 02/18/2024 DIABETES SCREEN due on 02/17/2026 PAP TESTING due on 12/06/2027 HPV TESTING due on 12/06/2027 LIPID SCREEN due on 02/18/2028 ALPHA-1 ANTITRYPSIN DEFICIENCY SCREENING Completed SPIROMETRY Completed HEPATITIS C SCREENING Completed HIV SCREENING Completed PNEUMOCOCCAL Completed ASSESSMENT/PLAN: 1. Left wrist pain - ICD9: 719.43, ICD10: M25.532 Likely carpal tunnel. Wrist brace to wear at bedtime. Naproxen BID as needed for discomfort. Discussed EMG diagnostic to confirm if symptoms worsen. - WRIST BRACE LARGE - NAPROXEN 500 MG TABLET RTO as needed. Prescription instructions reviewed with patient as applicable. Potential red flag symptoms discussed with the patient. Reviewed appropriate action plan to take if red flag symptoms occur. Patient agreeable to treatment plan. Miranda Larsen APRN.VINEYARDIST [address] [place] [address] documented in this encounter [facility] 04-21-2023 History of Present illness Narrative Chief Complaint: This 53 year old female who presents with chief complaint:b/l foot pain HPI Patient presents to clinic for evaluation of b/l foot. Patient has intermittent pain to the top of both feet. She does wear orthotics and these do help. She currently uses powerstep inserts and these help. She is here to discuss getting new orthotics. PAIN EVALUATION No data found in the last 1 encounters. Hemoglobin A1C (%) Date Value 02/17/2023 5.9 09/23/2021 5.6 05/20/2019 5.2 01/16/2017 5.3 11/02/2013 5.6 04/04/2013 5.3 PCP: Gabriel Alcantara DO PAST MEDICAL HISTORY Diagnosis Date Abdominal pain, other specified site 10/13/2013 Asthma since early twenties Depressive disorder, not elsewhere classified Counseling center, Dr. Mancuso GERD (gastroesophageal reflux disease) IFG (impaired fasting glucose) 01/2023 Low back pain 08/04/2013 Marijuana use 06/2016 Mixed hyperlipidemia Hyperlipidemia Obesity (BMI 30-39.9) 03/28/2013 Thoracic back pain 08/04/2013 Unspecified hypothyroidism UTI (lower urinary tract infection) 05/04/2014 Current Outpatient Medications Medication Sig albuterol HFA (VENTOLIN HFA) 90 mcg/actuation inhaler INHALE 2 PUFFS EVERY FOUR HOURS NEEDED FOR WHEEZING/SHORTNESS OF BREATH atorvastatin (LIPITOR) 40 mg tablet Take 1 tablet by mouth once daily. tiotropium bromide (SPIRIVA RESPIMAT) 2.5 mcg/actuation inhaler INHALE TWO PUFFS BY MOUTH EVERY DAY lansoprazole (PREVACID) 15 mg capsule Take 2 capsules by mouth once daily. Nebulizer and Compressor For Neb 1 Each every 4 hours as needed. Cholecalciferol, Vitamin D3, 125 mcg (5,000 unit) cap Take 1 capsule by mouth once daily. clotrimazole-betamethasone (LOTRISONE) cream Apply to affected area twice daily. ibuprofen (MOTRIN) 800 mg tablet Take 1 tablet by mouth every 8 hours as needed for pain. levothyroxine (SYNTHROID) 125 mcg tablet Take 1 tablet by mouth 6 days per week and a half tablet by mouth 1 day per week. Take on empty stomach. For Thyroid oxybutynin ER (DITROPAN XL) 10 mg 24 hr tablet Take 1 tablet by mouth once daily. budesonide-formoterol (SYMBICORT) 160-4.5 mcg/actuation inhaler Inhale 2 Puffs as instructed twice daily. albuterol (PROVENTIL) 2.5 mg /3 mL (0.083 %) nebulizer solution Use 3 mL via nebulizer every 4 hours as needed for wheezing/shortness of breath. Use over 5-15minutes. L. acidophilus-L. rhamnosus 15 billion cell cap Take 1 capsule by mouth once daily. Keep in the refrigerator. venlafaxine ER (EFFEXOR XR) 75 mg 24 hr capsule Take 1 capsule by mouth twice daily. (Patient taking differently: Take 150 mg by mouth twice daily.) polyethylene glycol 3350 (MIRALAX) 17 gram/dose powder Take 17 g by mouth as needed. Take 1 dose daily PO fluticasone (FLONASE) 50 mcg/actuation nasal spray Use 2 Sprays in each nostril once daily. Rinse mouth after use. QUEtiapine (SEROQUEL) 50 mg tablet Take 50 mg by mouth twice daily. hydrOXYzine HCl (ATARAX) 25 mg tablet Take 1 tablet by mouth every 6 hours as needed for Itching/Rash. albuterol (PROVENTIL) 2.5 mg /3 mL (0.083 %) nebulizer solution Use 3 mL via nebulizer three times daily as needed for wheezing/shortness of breath. OVER 5-15 MINUTES. FOR WHEEZING AND SHORTNESS OF BREATH. COMPOUNDED PRESCRIPTION Nebulizer Machine Dx: Asthma 493 (Patient taking differently: as needed. Nebulizer Machine Dx: Asthma 493) No current facility-administered medications for this visit. ALLERGIES Allergen Reactions Adhesive Tape (Rosa Isela* Rash Bactrim Ds [Sulfame* Hives Bee Venom Protein (* Itching Niaspan [Niacin (An* Hives Penicillins Rash PAST SURGICAL HISTORY Procedure Laterality Date BREAST SURGERY PROCEDURE UNLISTED 08/19/2010 nonhealing ulcer right breast, skin graft, MRSA + COLONOSCOPY 02/12/2010 [facility], + internal hemorrhoids LAPAROSCOPY SURG CHOLECYSTECTOMY 04/26/2020 Cholecystectomy, lap LUMPECTOMY/RADIOTHERAPY DIAG MAMM/A10 05/11/2012 left breast, Dr. Silva LUMPECTOMY/RADIOTHERAPY DIAG MAMM/A10 09/11/2011 right breast, Dr. Silva PAST SURGICAL HISTORY OF teeth extraction REDUCTION OF LARGE BREAST 04/26/10 Performed by SHRUTHI LABARRAN at [facility] FAMILY HISTORY Problem Relation Age of Onset Stroke Mother Emphysema Mother Heart Father 50 Diabetes Father Asthma Sister Hypertension Maternal Grandmother Stroke Maternal Grandmother Heart Maternal Grandfather Diabetes Maternal Grandfather Social History Tobacco Use Smoking status: Every Day Packs/day: 0.50 Years: 30.00 Additional pack years: 0.00 Total pack years: 15.00 Types: Cigarettes Smokeless tobacco: Never Vaping Use Vaping Use: Never used Substance Use Topics Alcohol use: Yes Comment: occasional 1-2 drinks Drug use: Yes Types: Marijuana Comment: In the past REVIEW OF SYSTEMS GENERAL: Negative for Malaise, significant weight loss, fever RESPIRATORY: Negative for cough, wheezing and shortness of breath CARDIOVASCULAR: Negative for chest pain, leg swelling and palpitations GI: Negative for abdominal discomfort, blood in stools or black stools and change in bowel habits : Negative for dysuria, frequency and incontinence MUSCULOSKELETAL: Negative for joint pain or swelling, back pain, and muscle pain. SKIN: Negative for lesions, rash, and itching. HEMATOLOGY/LYMPHOLOGY Negative for prolonged bleeding, bruising easily, and swollen nodes. ENDOCRINE: Negative for cold or heat intolerance, polyuria, polydipsia and goiter. NEURO: negative Physical Exam: Constitutional: Pt is a well developed 53 year old female who is alert, oriented and cooperative Eyes: Following during examination. No redness or drainage. Respiratory: RR normal and nonlabored. Even breathing. No evidence of distress or shortness of breath. Psychology: Patient is engaged during conversation. Normal affect and mood. Does not appear depressed or anxious during encounter. Vascular: Dorsalis pedis and posterior tibial pulses palpable as b/l Capillary Fill time < 5 seconds to digits 1-5 b/l Skin temperature warm to warm proximal to distal b/l Hair growth present to digits Neurological: intact light touch/epicritic sensation b/l intact protective sensation no significant neurological deficits Dermatological: Nails 1-5 b/l appear normal. Webspaces clean and dry 1-4 b/l. Skin appears well hydrated and supple. good color, texture, turgor. No open lesions present. Callus present to right 1st metatarsal Musculoskeletal/Orthopaedic: Patient has pain to palpation of b/l midfoot Foot type is pronated structurally AJ ROM is full with knee extended and flexed 1st MPJ is full when loaded and no pain or crepitus are noted with ROM. MTJ, STJ are full and free of pain and crepitus. +5/5 muscle strength dorsiflexion, plantarflexion, inversion, eversion b/l Radiographs: n/a ASSESSMENT: (M25.579) Pain in joint involving ankle and foot, unspecified laterality (primary encounter diagnosis) (M19.079) Arthritis of midfoot (M76.829) Posterior tibial tendon dysfunction (L84) Callus of foot PLAN: 1. History and physical examination performed. 2. Discussed pain in midfoot combined with flatfoot. Powerstep inserts seem to help. Will order custom orthotics. Custom orthotics will be of benefit to a patient who has fallen arches, midfoot arthritis and callus 3. Callus was reduced to right foot with willie Rosa DPM Podiatry [address] [facility] [address] Dept: [phone] Dept AMB ROOMING INTAKE FLOWSHEET DATA Patient presents with: Left Foot - Established Patient, consult for inserts Right Foot - consult for inserts Patient is requesting new inserts. Meli Caballero LPN documented in this encounter [facility] 03-25-2023 Miscellaneous Notes Last Office Visit: 02/17/2023 Future Office Visit: 2023 Requested Prescriptions Pending Prescriptions Disp Refills atorvastatin (LIPITOR) 40 mg tablet 90 tablet 3 Sig: Take 1 tablet by mouth once daily. tiotropium bromide (SPIRIVA RESPIMAT) 2.5 mcg/actuation inhaler 4 g 3 Sig: INHALE TWO PUFFS BY MOUTH EVERY DAY Date of Last Labs: 02/17/2023 documented in this encounter [facility] 03-24-2023 Miscellaneous Notes Patient called to request medication refill in previous message. After verifying the pharmacy that the patient would prefer the refill to be sent to, I notified her that per [facility] policy providers have up to 72 hours to respond to patient's requests. I notified the patient that I would be sending the request as high priority but am instructed to inform patients about the potential of the medication not being filled the same day. The patient became agitated and tried to argue that the order did not need to be signed and it should be sent right now. She stated that she lost her last refill and had an episode early today where she needed it. I apologized and again informed her that refill must be signed by an appropriate provider within her PCP's office prior to being sent to pharmacy. She repeatedly stated she needed it today and said that if she were to have another asthma attack that she will be suing the [facility]. I advised her to call 911, report to Hospital, or contact PCP's office again if she were to experience another asthma attack. She then became quiet for a period of time. I asked if there was anything else I could assist her with, she stated no, then hung up the phone. Patient has been identified by name and date of : Yes, Provider QUINTON Patient phones for refill(s): Requested Prescriptions Pending Prescriptions Disp Refills albuterol HFA (VENTOLIN HFA) 90 mcg/actuation inhaler 18 g 5 Sig: INHALE 2 PUFFS EVERY FOUR HOURS NEEDED FOR WHEEZING/SHORTNESS OF BREATH PATIENT IS CURRENTLY OUT OF MEDICATION SHE HAS MISPLACED HER MOST RECENT REFILL. Date of last office visit in primary care: 02/17/23 Last 2 Encounter Wt Readings: Date: Wt: 02/17/2023 67.1 kg (148 lb) 02/04/2023 67.6 kg (149 lb) Previous labs/tests for medication: Not applicable Please advise. Thank you. Rachna Jimenez documented in this encounter [facility] 02-26-2023 History of Present illness Narrative Radiology Service Progress Note PATIENT NAME: Kevin Post DATE OF SERVICE: February 26, 2023 TIME: 1:12 PM PATIENT IDENTITY VERIFICATION COMPLETED USING TWO (2) IDENTIFIERS: Name and Date of confirmed by patient verbally. FALL SCREENING: Has the patient had 2 falls in the last year or 1 fall with injury or currently using an Ambulatory Assistive Device (Walker, Cane, Wheelchair, Crutches, etc.)? No PATIENT GENDER DATA: Female. status: : No status: NO. PATIENT RELEVANT IMPLANT DATA REVIEWED: Yes RADIOLOGY DEPARTMENT: CT; Exam(s) Completed: Chest PERIPHERAL IV DATA: Not applicable SIGNED BY: RT Toney(R) February 26, 2023 1:12 PM documented in this encounter [facility] 02-17-2023 History of Present illness Narrative CC: Kevin Post is a 52 year old female who presents to the office for physical HPI: Chronic cough now for about 3-4 weeks, was seen by provider in family medicine [facility] on 02/04 and told likely viral. Still is coughing, intermittent yellow and green sputum. Is a long time tobacco user. Doesn't see Pulm until Apr [address] Dr. Mistry. No hemoptysis. No fevers or chills. Using her inhaler as prescribed. Hx of asthma. HPL, taking lipitor, trying to be more consistent with regular use. Hasn't had fasting labs recently. Willing to get these done Hasn't had pneumonia vaccine since 2012, willing to get booster dose today Hypothyroidism, taking levothyroxine 125 mcg 6 days a week and 1/2 tablet 1 day a week, willing to have labs rechecked Still with chronic fatigue symptoms. Obesity, knows need for weight loss, working on this now. Has recently lost 6-7 lbs. PAST MEDICAL HISTORY Diagnosis Date Abdominal pain, other specified site 10/13/2013 Asthma since early twent Depressive disorder, not elsewhere classified Counseling center, Dr. Mancuso GERD (gastroesophageal reflux disease) Low back pain 08/04/2013 Marijuana use 06/2016 Mixed hyperlipidemia Hyperlipidemia Obesity (BMI 30-39.9) 03/28/2013 Thoracic back pain 08/04/2013 Unspecified hypothyroidism UTI (lower urinary tract infection) 05/04/2014 PAST SURGICAL HISTORY Procedure Laterality Date BREAST SURGERY PROCEDURE UNLISTED 08/19/2010 nonhealing ulcer right breast, skin graft, MRSA + COLONOSCOPY 02/12/2010 [facility], + internal hemorrhoids LAPAROSCOPY SURG CHOLECYSTECTOMY 04/26/2020 Cholecystectomy, lap LUMPECTOMY/RADIOTHERAPY DIAG MAMM/A10 05/11/2012 left breast, Dr. Silva LUMPECTOMY/RADIOTHERAPY DIAG MAMM/A10 09/11/2011 right breast, Dr. Silva PAST SURGICAL HISTORY OF teeth extraction REDUCTION OF LARGE BREAST 04/26/10 Performed by SHRUTHI ALBARRAN at [facility] Social History: Social History Tobacco Use Smoking status: Every Day Packs/day: 2.00 Years: 30.00 Pack years: 60.00 Types: Cigarettes Smokeless tobacco: Never Vaping Use Vaping Use: Never used Substance Use Topics Alcohol use: Yes Comment: occasional 1-2 drinks Drug use: Yes Types: Marijuana Comment: In the past FAMILY HISTORY Problem Relation Age of Onset Stroke Mother Emphysema Mother Heart Father 50 Diabetes Father Asthma Sister Hypertension Maternal Grandmother Stroke Maternal Grandmother Heart Maternal Grandfather Diabetes Maternal Grandfather Current Outpatient prescriptions: Nebulizer and Compressor For Neb 1 Each every 4 hours as needed. Cholecalciferol, Vitamin D3, 125 mcg (5,000 unit) cap Take 1 capsule by mouth once daily. clotrimazole-betamethasone (LOTRISONE) cream Apply to affected area twice daily. albuterol (PROVENTIL) 2.5 mg /3 mL (0.083 %) nebulizer solution Use 3 mL via nebulizer three times daily as needed for wheezing/shortness of breath. OVER 5-15 MINUTES. FOR WHEEZING AND SHORTNESS OF BREATH. ibuprofen (MOTRIN) 800 mg tablet Take 1 tablet by mouth every 8 hours as needed for pain. levothyroxine (SYNTHROID) 125 mcg tablet Take 1 tablet by mouth 6 days per week and a half tablet by mouth 1 day per week. Take on empty stomach. For Thyroid tiotropium bromide (SPIRIVA RESPIMAT) 2.5 mcg/actuation inhaler INHALE TWO PUFFS BY MOUTH EVERY DAY oxybutynin ER (DITROPAN XL) 10 mg 24 hr tablet Take 1 tablet by mouth once daily. budesonide-formoterol (SYMBICORT) 160-4.5 mcg/actuation inhaler Inhale 2 Puffs as instructed twice daily. lansoprazole (PREVACID) 15 mg capsule Take 2 capsules by mouth once daily. atorvastatin (LIPITOR) 40 mg tablet Take 1 tablet by mouth once daily. albuterol HFA (VENTOLIN HFA) 90 mcg/actuation inhaler INHALE 2 PUFFS EVERY FOUR HOURS NEEDED FOR WHEEZING/SHORTNESS OF BREATH albuterol (PROVENTIL) 2.5 mg /3 mL (0.083 %) nebulizer solution Use 3 mL via nebulizer every 4 hours as needed for wheezing/shortness of breath. Use over 5-15minutes. L. acidophilus-L. rhamnosus 15 billion cell cap Take 1 capsule by mouth once daily. Keep in the refrigerator. venlafaxine ER (EFFEXOR XR) 75 mg 24 hr capsule Take 1 capsule by mouth twice daily. (Patient taking differently: Take 150 mg by mouth twice daily.) polyethylene glycol 3350 (MIRALAX) 17 gram/dose powder Take 17 g by mouth as needed. Take 1 dose daily PO fluticasone (FLONASE) 50 mcg/actuation nasal spray Use 2 Sprays in each nostril once daily. Rinse mouth after use. QUEtiapine (SEROQUEL) 50 mg tablet Take 50 mg by mouth twice daily. hydrOXYzine HCl (ATARAX) 25 mg tablet Take 1 tablet by mouth every 6 hours as needed for Itching/Rash. COMPOUNDED PRESCRIPTION Nebulizer Machine Dx: Asthma 493 (Patient taking differently: as needed. Nebulizer Machine Dx: Asthma 493) doxycycline (VIBRA-TABS) 100 mg tablet Take 1 tablet by mouth twice daily for 10 days. methylPREDNISolone (MEDROL, ELISEO,) 4 mg Dose-Pack Follow dosing instructions, take with food. linaclotide (LINZESS) 145 mcg capsule Take 1 capsule by mouth DAILY (6 AM). Allergies: ALLERGIES Allergen Reactions Adhesive Tape (Rosa Isela* Rash Bactrim Ds [Sulfame* Hives Bee Venom Protein (* Itching Niaspan [Niacin (An* Hives Penicillins Rash ROS: See HPI PE: 02/17/23 0743 BP: 124/76 Pulse: 64 Resp: 16 Temp: (!) 35.8 C (96.5 F) TempSrc: Right Tympanic Weight: 67.1 kg (148 lb) Height: 155 cm (5' 1.02) Gen: A&O, NAD, non-toxic appearing, cooperative HEENT: NT/AC, PERRLA, EOMs intact b/l, nares clear and patent b/l, pharynx without erythema, exudate or lesions. Missing teeth, MMM, Uvula midline. EACs without erythema or debris. TMs pearly malagon with intact landmarks b/l. Neck: supple, No cervical LAD, no thyromegaly, no carotid bruits CV: RRR, normal S1 and S2, no murmurs, no gallops, no rubs, Pulses 2+ and symmetric in UE and LE b/l Lungs: normal respiratory effort, coughing, scattered wheezing at bases, no distress Abd: soft, overweight, NT, ND, +BS, no hepatosplenomegaly MS: FROM all 4 extremities Neuro: CN II-XII intact b/l No edema, normal pulses Skin: warm, dry, intact, No rashes or lesions on exposed skin. ASSESSMENT/PLAN: 1. Routine physical examination - ICD9: V70.0, ICD10: Z00.00 (primary diagnosis) - Counseled on healthy diet and regular exercise - Calcium intake with supplements or by diet of 1000 mg/day for under 50, 8104-2690 mg/day for 50+ - Discussed need and benefit for weight loss. BMI 27.94 kg/(m^2) - Colorectal cancer screening recommended - screening declined 2. Other specified hypothyroidism - ICD9: 244.8, ICD10: E03.8 - Instructed patient on importance of taking on an empty stomach either first thing in the morning or at bedtime. - TSH BLD - T4 FREE/FREE THYROX - COMP METABOLIC PANEL - CBC + DIFF 3. Fatigue, unspecified type - ICD9: 780.79, ICD10: R53.83 Recheck labs as ordered, likely multifactorial - CBC + DIFF - HGB A1C - VITAMIN B12 BLOOD 4. Dyslipidemia - ICD9: 272.4, ICD10: E78.5 - Control undetermined, due for labs - Continue current medications - Counseled on healthy diet and regular exercise - CBC + DIFF - LIPID PANEL BASIC 5. Vitamin D deficiency - ICD9: 268.9, ICD10: E55.9 Recheck labs as ordered, continue supplement - VITAMIN D 25 HYDROXY 6. Need for pneumococcal 20-valent conjugate vaccination - ICD9: V03.82, ICD10: Z23 - PNEUMOCOCCAL VACCINE (PREVNAR 20) 7. Subacute cough - ICD9: 786.2, ICD10: R05.2 CXR was normal on 02/04/23, symptoms continue, hx of asthma, + tobacco use,need for CT chest and labs as ordered - CT CHEST WO IVCON - DOXYCYCLINE HYCLATE 100 MG TABLET - METHYLPREDNISOLONE 4 MG TABLETS IN A DOSE PACK - [id number] BL 8. SOB (shortness of breath) - ICD9: 786.05, ICD10: R06.02 CXR was normal on 02/04/23, symptoms continue, hx of asthma, + tobacco use,need for CT chest and labs as ordered - CT CHEST WO IVCON - DOXYCYCLINE HYCLATE 100 MG TABLET - METHYLPREDNISOLONE 4 MG TABLETS IN A DOSE PACK - [id number] BL 9. Tobacco use - ICD9: 305.1, ICD10: Z72.0 CXR was normal on 02/04/23, symptoms continue, hx of asthma, + tobacco use,need for CT chest and labs as ordered Advised her to quit, she isn't willing to - [id number] BL 10. Marijuana use - ICD9: 305.20, ICD10: F12.90 CXR was normal on 02/04/23, symptoms continue, hx of asthma, + tobacco use,need for CT chest and labs as ordered Advised her to quit, she isn't willing to Gabriel Alcantara DO To ER if develops chest pain, shortness of breath, or severe worsening of symptoms. Discussed risks, benefits, alternatives, and potential side effects of medications. Patient expressed understanding and agreed with the plan. Gabriel Alcantara DO [address] [place] [address] documented in this encounter [facility] 02-04-2023 Miscellaneous Notes Phoned patient and left detailed message on voicemail with results below from Nel Pino 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. ----- Message from Nel Pino APRN.EMILIA sent at 02/04/2023 10:53 AM EDT ----- Please let patient know chest xray is normal. Nel Pino APRN.CNP documented in this encounter [facility] 02-04-2023 History of Present illness Narrative Radiology Service Progress Note PATIENT NAME: Kevin Post DATE OF SERVICE: February 04, 2023 TIME: 10:32 AM PATIENT IDENTITY VERIFICATION COMPLETED USING TWO (2) IDENTIFIERS: Name and Date of confirmed by patient verbally. FALL SCREENING: Has the patient had 2 falls in the last year or 1 fall with injury or currently using an Ambulatory Assistive Device (Walker, Cane, Wheelchair, Crutches, etc.)? No PATIENT GENDER DATA: Female. status: : No status: NO. PATIENT RELEVANT IMPLANT DATA REVIEWED: Yes RADIOLOGY DEPARTMENT: General X-ray: Exam(s) Completed: Chest X-Ray PERIPHERAL IV DATA: Not applicable SIGNED BY: RT Anita(R) February 04, 2023 10:32 AM documented in this encounter [facility] 02-04-2023 History of Present illness Narrative 02/04/2023 Patient presents with: Cough: X3 weeks with phlegm that is yellow/green SUBJECTIVE: This is a 52 year old that is here today for Above Complaints. For the last 3 weeks has been coughing up yellow/green phlegm. Mainly in the morning in when she wakes up. Admits to wheezing at times. Using her albuterol inhaler 4-5 times a day. Needs order for new nebulizer. Reports she has a hx of COPD and asthma. Denies fevers, nasal congestion, rhinorrhea, SOB, dyspnea or orthopnea. PAST MEDICAL HISTORY Diagnosis Date Abdominal pain, other specified site 10/13/2013 Asthma since early twenties Depressive disorder, not elsewhere classified Counseling center, Dr. Mancuso GERD (gastroesophageal reflux disease) Low back pain 08/04/2013 Marijuana use 06/2016 Mixed hyperlipidemia Hyperlipidemia Obesity (BMI 30-39.9) 03/28/2013 Thoracic back pain 08/04/2013 Unspecified hypothyroidism UTI (lower urinary tract infection) 05/04/2014 ALLERGIES Adhesive Tape (Rosins), Bactrim Ds [Sulfamethoxazole-Trimethoprim], Bee Venom Protein (Honey Bee), Niaspan [Niacin (Antihyperlipidemic)], and Penicillins MEDICATIONS Current Outpatient Medications Medication Sig Cholecalciferol, Vitamin D3, 125 mcg (5,000 unit) cap Take 1 capsule by mouth once daily. clotrimazole-betamethasone (LOTRISONE) cream Apply to affected area twice daily. albuterol (PROVENTIL) 2.5 mg /3 mL (0.083 %) nebulizer solution Use 3 mL via nebulizer three times daily as needed for wheezing/shortness of breath. OVER 5-15 MINUTES. FOR WHEEZING AND SHORTNESS OF BREATH. ibuprofen (MOTRIN) 800 mg tablet Take 1 tablet by mouth every 8 hours as needed for pain. levothyroxine (SYNTHROID) 125 mcg tablet Take 1 tablet by mouth 6 days per week and a half tablet by mouth 1 day per week. Take on empty stomach. For Thyroid tiotropium bromide (SPIRIVA RESPIMAT) 2.5 mcg/actuation inhaler INHALE TWO PUFFS BY MOUTH EVERY DAY oxybutynin ER (DITROPAN XL) 10 mg 24 hr tablet Take 1 tablet by mouth once daily. budesonide-formoterol (SYMBICORT) 160-4.5 mcg/actuation inhaler Inhale 2 Puffs as instructed twice daily. lansoprazole (PREVACID) 15 mg capsule Take 2 capsules by mouth once daily. atorvastatin (LIPITOR) 40 mg tablet Take 1 tablet by mouth once daily. albuterol HFA (VENTOLIN HFA) 90 mcg/actuation inhaler INHALE 2 PUFFS EVERY FOUR HOURS NEEDED FOR WHEEZING/SHORTNESS OF BREATH albuterol (PROVENTIL) 2.5 mg /3 mL (0.083 %) nebulizer solution Use 3 mL via nebulizer every 4 hours as needed for wheezing/shortness of breath. Use over 5-15minutes. linaclotide (LINZESS) 145 mcg capsule Take 1 capsule by mouth DAILY (6 AM). (Patient not taking: No sig reported) L. acidophilus-L. rhamnosus 15 billion cell cap Take 1 capsule by mouth once daily. Keep in the refrigerator. venlafaxine ER (EFFEXOR XR) 75 mg 24 hr capsule Take 1 capsule by mouth twice daily. (Patient taking differently: Take 150 mg by mouth twice daily.) polyethylene glycol 3350 (MIRALAX) 17 gram/dose powder Take 17 g by mouth as needed. Take 1 dose daily PO fluticasone (FLONASE) 50 mcg/actuation nasal spray Use 2 Sprays in each nostril once daily. Rinse mouth after use. QUEtiapine (SEROQUEL) 50 mg tablet Take 50 mg by mouth twice daily. hydrOXYzine HCl (ATARAX) 25 mg tablet Take 1 tablet by mouth every 6 hours as needed for Itching/Rash. COMPOUNDED PRESCRIPTION Nebulizer Machine Dx: Asthma 493 (Patient taking differently: as needed. Nebulizer Machine Dx: Asthma 493) No current facility-administered medications for this visit. Medications and allergies reviewed by this provider. SOCIAL HISTORY Social History Tobacco Use Smoking status: Every Day Packs/day: 0.75 Years: 30.00 Pack years: 22.50 Types: Cigarettes Smokeless tobacco: Never Vaping Use Vaping Use: Never used Substance Use Topics Alcohol use: Yes Comment: occasional 1-2 drinks Drug use: Not Currently Comment: In the past REVIEW OF SYSTEMS All other reviewed and negative other than HPI. OBJECTIVE: BP 106/64 Pulse 88 Temp 36.3 C (97.3 F) Resp 18 Wt 67.6 kg (149 lb) LMP 06/21/2018 SpO2 97% BMI 29.29 kg/m . Vital signs reviewed by this provider. APPEARANCE Well appearing, alert, in no acute distress, well-hydrated, well nourished. EYES conjunctiva and sclera normal. HEART RRR with normal S1 and S2, no murmurs, no gallops, no JVD appreciated LUNG clear to auscultation. No wheezes, rhonchi or rales HEPATITIS B(1 of 3 - 3-dose series) Never done COVID-19 VACCINE(1) Never done ALPHA-1 ANTITRYPSIN DEFICIENCY SCREENING Never done PNEUMOCOCCAL(2 - PCV) due on 03/30/2014 COLORECTAL CANCER SCREENING due on 2017 MAMMOGRAM due on 08/22/2021 SHINGRIX VACCINE(1 of 2) Never done LUNG CANCER SCREENING due on 03/21/2023 DTAP,TDAP,TD(3 - Td or Tdap) due on 03/30/2023 INFLUENZA(Season Ended) due on 04/24/2023 ANNUAL PCP TEAM CHRONIC DISEASE VISIT due on 12/25/2023 DIABETES SCREEN due on 11/27/2024 LIPID SCREEN due on 08/05/2027 PAP TESTING due on 12/06/2027 HPV TESTING due on 12/06/2027 SPIROMETRY Completed HEPATITIS C SCREENING Completed HIV SCREENING Completed ASSESSMENT/PLAN: 1. Acute cough - ICD9: 786.2, ICD10: R05.1 (primary diagnosis) - possible related to smoking - no red flag symptoms or exam findings - red flag symptoms discussed, verbalizes understanding - NEBULIZER AND COMPRESSOR - XR CHEST 2V FRONTAL/LAT - recommend smoking cessation - follow-up pending chest xray 2. COPD with chronic bronchitis (HCC) - ICD9: 491.20, ICD10: J44.9 - needs to make yearly follow-up with her clerical car checker - NEBULIZER AND COMPRESSOR - XR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 [facility] 04-18-2022 History of Present illness Narrative Images from the original note were not included. Chief Complaint: This 52 year old female who presents with chief complaint:painful callus of b/l feet. Also complains of ingrowing toenail of left 5th toe HPI Patient presents to clinic with complaint of callus. She has callus to the medial aspect of b/l great toes and first metatarsal. She uses rafael butter. She is here to discuss options for the callus. She also has thickening of left 5th toenail. She pulled the nail out recently and is concerned she may have ingrowing toenail of left 5th toe. PAIN EVALUATION 04/18/2022 0915 Pain Level: 10 Pain Location: Foot-Right Description: Cramping Duration Amount of Time: -- pt states it has been ongoing since she was 18 Duration Units: Years Frequency: Intermittent Intervention/Comfort measure: Relaxation;Reposition Hemoglobin A1C (%) Date Value 09/23/2021 5.6 05/20/2019 5.2 01/16/2017 5.3 11/02/2013 5.6 04/04/2013 5.3 PCP: Gabriel Alcantara DO PAST MEDICAL HISTORY Diagnosis Date Abdominal pain, other specified site 10/13/2013 Asthma since early twenties Depressive disorder, not elsewhere classified Counseling center, Dr. Mancuso GERD (gastroesophageal reflux disease) Low back pain 08/04/2013 Marijuana use 06/2016 Mixed hyperlipidemia Hyperlipidemia Obesity (BMI 30-39.9) 03/28/2013 Thoracic back pain 08/04/2013 Unspecified hypothyroidism UTI (lower urinary tract infection) 05/04/2014 Current Outpatient Medications Medication Sig levothyroxine (SYNTHROID) 125 mcg tablet Take 1 tablet by mouth 6 days per week and a half tablet by mouth 1 day per week. Take on empty stomach. For Thyroid lansoprazole (PREVACID) 15 mg capsule Take 2 capsules by mouth once daily. SPIRIVA RESPIMAT 2.5 mcg/actuation inhaler INHALE TWO PUFFS BY MOUTH EVERY DAY atorvastatin (LIPITOR) 40 mg tablet Take 1 tablet by mouth once daily. albuterol HFA (VENTOLIN HFA) 90 mcg/actuation inhaler INHALE 2 PUFFS EVERY FOUR HOURS NEEDED FOR WHEEZING/SHORTNESS OF BREATH albuterol (PROVENTIL) 2.5 mg /3 mL (0.083 %) nebulizer solution Use 3 mL via nebulizer three times daily as needed for wheezing/shortness of breath. OVER 5-15 MINUTES. FOR WHEEZING AND SHORTNESS OF BREATH. albuterol (PROVENTIL) 2.5 mg /3 mL (0.083 %) nebulizer solution Use 3 mL via nebulizer every 4 hours as needed for wheezing/shortness of breath. Use over 5-15minutes. ibuprofen (MOTRIN) 800 mg tablet Take 1 tablet by mouth every 8 hours as needed (mild to moderate pain). budesonide-formoterol (SYMBICORT) 160-4.5 mcg/actuation inhaler Inhale 2 Puffs as instructed twice daily. oxybutynin ER (DITROPAN XL) 10 mg 24 hr tablet TAKE 1 TABLET BY MOUTH DAILY L. acidophilus-L. rhamnosus 15 billion cell cap Take 1 capsule by mouth once daily. Keep in the refrigerator. venlafaxine ER (EFFEXOR XR) 75 mg 24 hr capsule Take 1 capsule by mouth twice daily. (Patient taking differently: Take 150 mg by mouth twice daily.) polyethylene glycol 3350 (MIRALAX) 17 gram/dose powder Take 17 g by mouth as needed. Take 1 dose daily PO fluticasone (FLONASE) 50 mcg/actuation nasal spray Use 2 Sprays in each nostril once daily. Rinse mouth after use. QUEtiapine (SEROQUEL) 50 mg tablet Take 50 mg by mouth twice daily. hydrOXYzine HCl (ATARAX) 25 mg tablet Take 1 tablet by mouth every 6 hours as needed for Itching/Rash. Cholecalciferol, Vitamin D3, 125 mcg (5,000 unit) cap Take 1 capsule by mouth once daily. linaclotide (LINZESS) 145 mcg capsule Take 1 capsule by mouth DAILY (6 AM). (Patient not taking: Reported on 04/18/2022) COMPOUNDED PRESCRIPTION Nebulizer Machine Dx: Asthma 493 (Patient taking differently: as needed. Nebulizer Machine Dx: Asthma 493 ) No current facility-administered medications for this visit. ALLERGIES Allergen Reactions Adhesive Tape (Rosa Isela* Rash Bactrim Ds [Sulfame* Hives Bee Venom Protein (* Itching Niaspan [Niacin (An* Hives Penicillins Rash PAST SURGICAL HISTORY Procedure Laterality Date BREAST SURGERY PROCEDURE UNLISTED 08/19/2010 nonhealing ulcer right breast, skin graft, MRSA + COLONOSCOPY 02/12/2010 [facility], + internal hemorrhoids LAPAROSCOPY SURG CHOLECYSTECTOMY 04/26/2020 Cholecystectomy, lap LUMPECTOMY/RADIOTHERAPY DIAG MAMM/A10 05/11/2012 left breast, Dr. Silva LUMPECTOMY/RADIOTHERAPY DIAG MAMM/A10 09/11/2011 right breast, Dr. Silva PAST SURGICAL HISTORY OF teeth extraction REDUCTION OF LARGE BREAST 04/26/10 Performed by SH[facility]ARRAN at [facility] FAMILY HISTORY Problem Relation Age of Onset Stroke Mother Emphysema Mother Heart Father 50 Diabetes Father Asthma Sister Hypertension Maternal Grandmother Stroke Maternal Grandmother Heart Maternal Grandfather Diabetes Maternal Grandfather Social History Tobacco Use Smoking status: Every Day Packs/day: 0.75 Years: 30.00 Pack years: 22.50 Types: Cigarettes Smokeless tobacco: Never Vaping Use Vaping Use: Never used Substance Use Topics Alcohol use: Yes Comment: occasional 1-2 drinks Drug use: Not Currently Comment: In the past REVIEW OF SYSTEMS GENERAL: Negative for Malaise, significant weight loss, fever RESPIRATORY: Negative for cough, wheezing and shortness of breath CARDIOVASCULAR: Negative for chest pain, leg swelling and palpitations GI: Negative for abdominal discomfort, blood in stools or black stools and change in bowel habits : Negative for dysuria, frequency and incontinence MUSCULOSKELETAL: Negative for joint pain or swelling, back pain, and muscle pain. SKIN: Negative for lesions, rash, and itching. HEMATOLOGY/LYMPHOLOGY Negative for prolonged bleeding, bruising easily, and swollen nodes. ENDOCRINE: Negative for cold or heat intolerance, polyuria, polydipsia and goiter. NEURO: negative Physical Exam: Constitutional: Pt is a well developed 52 year old female who is alert, oriented and cooperative Eyes: Following during examination. No redness or drainage. Respiratory: RR normal and nonlabored. Even breathing. No evidence of distress or shortness of breath. Psychology: Patient is engaged during conversation. Normal affect and mood. Does not appear depressed or anxious during encounter. Vascular: Dorsalis pedis and posterior tibial pulses palpable as b/l Capillary Fill time < 5 seconds to digits 1-5 b/l Skin temperature warm to warm proximal to distal b/l Hair growth present to digits Neurological: intact light touch/epicritic sensation b/l intact protective sensation no significant neurological deficits Dermatological: Left 5th toenail is thick but no ingrown noted. Patient has already trimmed most of the lateral nail border out. Webspaces clean and dry 1-4 b/l. Skin appears well hydrated and supple. good color, texture, turgor. No open lesions present. Callus present to b/l hallux, b/l 1st metatarsal and b/l 5th metatarsal Musculoskeletal/Orthopaedic: Patient has pain to palpation of callus of b/l feet Foot type is neutral structurally AJ ROM is full with knee extended and flexed 1st MPJ is full when loaded and no pain or crepitus are noted with ROM. MTJ, STJ are full and free of pain and crepitus. +5/5 muscle strength dorsiflexion, plantarflexion, inversion, eversion b/l Radiographs: n/a ASSESSMENT: (L84) Callus of foot (primary encounter diagnosis) (B35.1) Onychomycosis PLAN: 1. History and physical examination performed. 2. Discussed callus of b/l feet. Callus was sharply debrided to b/l hallux, b/l 1st metataral and b/l 5th metatarsal with 15 blade. Will order her topica cream for callus. Recommend gel inserts to help provide cushion in shoes 3. On exam, no ingrown noted. She does have thick toenail and if this bothers her, could consider removal. Discussed risk of slow healing due to smoking. She has elected to monitor. Evert Rosa DPM Podiatry [address] [facility] [address] Dept: [phone] Dept AMB ROOMING INTAKE FLOWSHEET DATA Risk Screening Do you have concerns about personal safety or safety in the home?: No Pain Pain Level: 10 Pain Location: Foot-Right Description: Cramping Duration Amount of Time: (pt states it has been ongoing since she was 18) Duration Units: Years Frequency: Intermittent Intervention/Comfort measure: Relaxation, Reposition Patient presents with: Left Foot - Established Patient, Callous Right Foot - Established Patient, Callous documented in this encounter [facility] 04-10-2022 Miscellaneous Notes 06-23-2022 Colon EGD [facility] Patient was scheduled for [facility] Colonoscopy /EGD on 04-11-2022. Patient was not able to get prep , cancelled procedure in [place] scheduled with Dr payton to better accomodates patients needs. patient will be seen in the office for an update H&P. patient was very pleasant and understanding and agreed to cancel and reschedule locally Trevor Masterson Attempt to contact patient,. no answer, no voice mail set up and patient does not have mychart. If patient calls back please transfer to Trevor at [phone]. Patient calling with questions about upcoming Colonoscopy. She started cussing at me when I asked when/where was procedure? I asked her to speak to me respectfully and attempted to find out what questions she had. She continued to cuss and was upset that I did not immediately know the answer to her question about her prep. I did not see an order in the MAR. She stated Since you don't seem to know anything, just cancel the procedure and abruptly ended the call. Lisandra Lara RN documented in this encounter [facility] 03-28-2022 Miscellaneous Notes Tried calling department and was transferred to an employee who stated the ordering provider will have to order numbing cream if needed. I've tried multiple times to get transferred to the correct department and was transferred to the call center multiple times and they couldn't provide correct number. Mel Blanca Ma Please find out from this department if it is ok to give a numbing cream prior to this procedure. Stefan Washington APRN.EMILIA Pt called in and reports she has an EMG in [place] scheduled for 04/14 and was asking if the providers could ask if they could numb her hands before the procedure. She states she freaks out with her hands when it comes to needles. Please call and advise. documented in this encounter [facility] 03-25-2022 Miscellaneous Notes Spoke with patient regarding results of her chest CT. No evidence of emphysema noted. CT obtained due to smoking history and mild reduction in diffusing capacity noted on pulmonary function test. She did have incidental note of small less than 3 mm nodules. Based on her smoking history, would recommend repeat CT in 1 year. documented in this encounter [facility] 03-24-2022 Miscellaneous Notes Thanks, please forward to [facility] as well Images from the original note were not included. MD Trevor Baldwin She is okay for colonoscopy from pulmonary standpoint. Pulmonary clearance requested Trevor Masterson Yes, she should complete all testing that was ordered by PCP. It appears she was seen in ED yesterday, so should also have follow-up visit with PCP prior to any elective procedure. Should also have [facility] review as will ultimately be up to anesthesia if she may proceed with endoscopy. Patient did not get CT complete. Do you want all pulmonary testing complete before patient has procedure? CT chest scheduled 02-26-2022 can not get pulmonary clearance till after CT patient cancelled pulm appointment and not rescheduled till 02-13-2022 will obtain pulm clearance at that time Trevor Masterson Patient is needing pulm clearance prior to procedure on 04/11 with Reynaldo Patient is coming 01/15 to preform breathing tests and has an appointment with the pulm 01/23 Thank you 04-11-2022 COLON EGD [facility] documented in this encounter [facility] 03-21-2022 History of Present illness Narrative Radiology Service Progress Note PATIENT NAME: Kevin Post DATE OF SERVICE: March 21, 2022 TIME: 10:47 AM PATIENT IDENTITY VERIFICATION COMPLETED USING TWO (2) IDENTIFIERS: Name and Date of confirmed by patient verbally. FALL SCREENING: Has the patient had 2 falls in the last year or 1 fall with injury or currently using an Ambulatory Assistive Device (Walker, Cane, Wheelchair, Crutches, etc.)? No PATIENT GENDER DATA: Female. status: : No status: NO. PATIENT RELEVANT IMPLANT DATA REVIEWED: Yes RADIOLOGY DEPARTMENT: General X-ray: Exam(s) Completed: Chest X-Ray PERIPHERAL IV DATA: Not applicable SIGNED BY: RT Anita(R) March 21, 2022 10:47 AM documented in this encounter [facility] 03-21-2022 History of Present illness Narrative Radiology Service Progress Note PATIENT NAME: Kevin Post DATE OF SERVICE: March 21, 2022 TIME: 12:15 PM PATIENT IDENTITY VERIFICATION COMPLETED USING TWO (2) IDENTIFIERS: Name and Date of confirmed by patient verbally. FALL SCREENING: Has the patient had 2 falls in the last year or 1 fall with injury or currently using an Ambulatory Assistive Device (Walker, Cane, Wheelchair, Crutches, etc.)? No PATIENT GENDER DATA: Female. status: : No status: NO. PATIENT RELEVANT IMPLANT DATA REVIEWED: Not Applicable RADIOLOGY DEPARTMENT: CT; Exam(s) Completed: Chest PERIPHERAL IV DATA: Not applicable SIGNED BY: RT Toney(R) March 21, 2022 12:15 PM documented in this encounter [facility] 03-17-2022 Miscellaneous Notes Patient returned call and given provider's message below with verbalized understanding. Patient reports she is scheduled in [place] for EMG on 03-28-22. Spoke to Jamie who has no idea where patient is at or where she is even staying. Patient is staying multiple locations and has no phone to be reached at. Friend said is she does talk to her will request to call in for results Lizbeth Amaral Ma Please let Kevin know that the xrays of her hands look good. We'll see what results we get after she has the nerve testing completed. Stefan Washington APRN.VINEYARDIST documented in this encounter [facility] 03-13-2022 History of Present illness Narrative Radiology Service Progress Note PATIENT NAME: Kevin Post DATE OF SERVICE: March 13, 2022 TIME: 1:28 PM PATIENT IDENTITY VERIFICATION COMPLETED USING TWO (2) IDENTIFIERS: Name and Date of confirmed by patient verbally. FALL SCREENING: Has the patient had 2 falls in the last year or 1 fall with injury or currently using an Ambulatory Assistive Device (Walker, Cane, Wheelchair, Crutches, etc.)? No PATIENT GENDER DATA: Female. status: : No status: NO. PATIENT RELEVANT IMPLANT DATA REVIEWED: Yes RADIOLOGY DEPARTMENT: General X-ray: Exam(s) Completed: Upper Extremity X-Ray(s): Hand, bilateral PERIPHERAL IV DATA: Not applicable SIGNED BY: RT Anita(R) March 13, 2022 1:28 PM documented in this encounter [facility] 03-13-2022 History of Present illness Narrative Chief Complaint Patient presents with: Numbness: Bilateral hands, restless leg syndrome HPI Kevin Post is a 51 year old female who presents here today for Above Complaints. Today: For the past 6 months: all fingers except thumbs on both hands have been intermittently numb and tingly. Sometimes her pinky fingers will get in a locked position and she will need to manually release the finger. Is right handed. Occasional pain in her wrists. No known injury. Has not tried any interventions such as pain relief, splinting, icing. Occasional neck pain. 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 Goes to see him every 2 weeks. Occasional pain to bilateral shoulders when carrying things. Past medical history, appointments, medications, allergies reviewed. Previous Medical History PAST MEDICAL HISTORY Diagnosis Date Abdominal pain, other specified site 10/13/2013 Asthma since early twenties Depressive disorder, not elsewhere classified Counseling [place], Dr. Mancuso GERD (gastroesophageal reflux disease) Low back pain 08/04/2013 Marijuana use 06/2016 Mixed hyperlipidemia Hyperlipidemia Obesity (BMI 30-39.9) 03/28/2013 Thoracic back pain 08/04/2013 Unspecified hypothyroidism UTI (lower urinary tract infection) 05/04/2014 Previous Surgical History PAST SURGICAL HISTORY Procedure Laterality Date BREAST SURGERY PROCEDURE UNLISTED 08/19/2010 nonhealing ulcer right breast, skin graft, MRSA + COLONOSCOPY 02/12/2010 [facility], + internal hemorrhoids LAPAROSCOPY SURG CHOLECYSTECTOMY 04/26/2020 Cholecystectomy, lap LUMPECTOMY/RADIOTHERAPY DIAG MAMM/A10 05/11/2012 left breast, Dr. Silva LUMPECTOMY/RADIOTHERAPY DIAG MAMM/A10 09/11/2011 right breast, Dr. Silva PAST SURGICAL HISTORY OF teeth extraction REDUCTION OF LARGE BREAST 04/26/10 Performed by SHRUTHI ALBARRAN at [facility] Family History FAMILY HISTORY Problem Relation Age of Onset Stroke Mother Emphysema Mother Heart Father 50 Diabetes Father Asthma Sister Hypertension Maternal Grandmother Stroke Maternal Grandmother Heart Maternal Grandfather Diabetes Maternal Grandfather Patient Allergies ALLERGIES Allergen Reactions Adhesive Tape (Rosa Isela* Rash Bactrim Ds [Sulfame* Hives Bee Venom Protein (* Itching Niaspan [Niacin (An* Hives Penicillins Rash Current Medications Current Outpatient Medications on File Prior to Visit Medication Sig levothyroxine (SYNTHROID) 125 mcg tablet Take 1 tablet by mouth 6 days per week and a half tablet by mouth 1 day per week. Take on empty stomach. For Thyroid lansoprazole (PREVACID) 15 mg capsule Take 2 capsules by mouth once daily. SPIRIVA RESPIMAT 2.5 mcg/actuation inhaler INHALE TWO PUFFS BY MOUTH EVERY DAY atorvastatin (LIPITOR) 40 mg tablet Take 1 tablet by mouth once daily. albuterol HFA (VENTOLIN HFA) 90 mcg/actuation inhaler INHALE 2 PUFFS EVERY FOUR HOURS NEEDED FOR WHEEZING/SHORTNESS OF BREATH albuterol (PROVENTIL) 2.5 mg /3 mL (0.083 %) nebulizer solution Use 3 mL via nebulizer three times daily as needed for wheezing/shortness of breath. OVER 5-15 MINUTES. FOR WHEEZING AND SHORTNESS OF BREATH. albuterol (PROVENTIL) 2.5 mg /3 mL (0.083 %) nebulizer solution Use 3 mL via nebulizer every 4 hours as needed for wheezing/shortness of breath. Use over 5-15minutes. ibuprofen (MOTRIN) 800 mg tablet Take 1 tablet by mouth every 8 hours as needed (mild to moderate pain). budesonide-formoterol (SYMBICORT) 160-4.5 mcg/actuation inhaler Inhale 2 Puffs as instructed twice daily. linaclotide (LINZESS) 145 mcg capsule Take 1 capsule by mouth DAILY (6 AM). oxybutynin ER (DITROPAN XL) 10 mg 24 hr tablet TAKE 1 TABLET BY MOUTH DAILY L. acidophilus-L. rhamnosus 15 billion cell cap Take 1 capsule by mouth once daily. Keep in the refrigerator. venlafaxine ER (EFFEXOR XR) 75 mg 24 hr capsule Take 1 capsule by mouth twice daily. polyethylene glycol 3350 (MIRALAX) 17 gram/dose powder Take 17 g by mouth as needed. Take 1 dose daily PO fluticasone (FLONASE) 50 mcg/actuation nasal spray Use 2 Sprays in each nostril once daily. Rinse mouth after use. QUEtiapine (SEROQUEL) 50 mg tablet Take 50 mg by mouth twice daily. hydrOXYzine HCl (ATARAX) 25 mg tablet Take 1 tablet by mouth every 6 hours as needed for Itching/Rash. COMPOUNDED PRESCRIPTION Nebulizer Machine Dx: Asthma 493 (Patient taking differently: as needed. Nebulizer Machine Dx: Asthma 493 ) Cholecalciferol, Vitamin D3, 125 mcg (5,000 unit) cap Take 1 capsule by mouth once daily. No current facility-administered medications on file prior to visit. Social History Social History Tobacco Use Smoking status: Current Every Day Smoker Packs/day: 0.75 Years: 30.00 Pack years: 22.50 Types: Cigarettes Smokeless tobacco: Never Used Tobacco comment: 3/4ppd currently 02/13/22 Vaping Use Vaping Use: Never used Substance Use Topics Alcohol use: Yes Comment: occasional 1-2 drinks Drug use: Not Currently Comment: In the past Review of Symptoms REVIEW OF SYSTEMS see HPI, otherwise negative EXAM: BP 90/58 (BP Site: Left Arm, BP Position: Sitting, BP Cuff Size: Regular Adult) Pulse 75 Resp 16 Wt 61.7 kg (136 lb 1.9 oz) LMP 06/21/2018 SpO2 98% BMI 26.76 kg/m General Appearance: Well appearing, alert, in no acute distress, well-hydrated, well nourished. and moderately disheveled. Lungs: Lungs clear to auscultation. No wheezing, rhonchi, rales.. Heart: RRR without murmur, gallop, or rubs. No ectopy. Musculoskeletal: bilateral hands, wrists WNL with examination. Pulses and sensation grossly intact. + phalen's test Health Maintenance List COVID-19 VACCINE(1) Never done ALPHA-1 ANTITRYPSIN DEFICIENCY SCREENING Never done PNEUMOCOCCAL(2 - PCV) due on 03/30/2014 COLORECTAL CANCER SCREENING due on 2017 MAMMOGRAM due on 08/22/2021 HPV TESTING due on 09/10/2022 INFLUENZA(1) due on 04/24/2022 ANNUAL PCP TEAM CHRONIC DISEASE VISIT due on 03/13/2023 DTAP,TDAP,TD(3 - Td or Tdap) due on 03/30/2023 DIABETES SCREEN due on 11/27/2024 PAP TESTING due on 05/04/2025 LIPID SCREEN due on 09/23/2026 SPIROMETRY Completed HEPATITIS C SCREENING Completed HIV SCREENING Completed Data reviewed Previous records, office notes ASSESSMENT/PLAN: 1. Numbness and tingling in both hands - ICD9: 782.0, ICD10: R20.0, R20.2 Concern for carpal tunnel vs other etiology. Encouraged bracing to both wrists, especially at nighttime. Ice, analgesics prn. Voltaren gel prn. - XR HAND GENERAL 3V PA/LAT/OBL BILATERAL - EMG(NEURO/NI) Stefan Washington APRN.CNP documented in this encounter [facility] 03-05-2022 Miscellaneous Notes Patient last visit with PCP 01/09/22 Follow up appointment scheduled 05/05/22 Lizbeth Amaral Ma Patient has been identified by name and date of : Yes Pending Prescriptions Disp Refills LEVOTHYROXINE 125 MCG TABLET 30 tablet 3 Sig: Take 1 tablet by mouth 6 days per week and a half tablet by mouth 1 day per week. Take on empty stomach. For Thyroid RADHA: No RX INSTRUCTIONS: Patient aware RX will be sent to pharmacy. No need to notify patient. Katherine Garcia documented in this encounter [facility] 02-27-2022 Miscellaneous Notes Patient has been identified by name and date of : Yes Patient phones for refill(s): Pending Prescriptions Disp Refills ATORVASTATIN 40 MG TABLET 90 tablet 3 Sig: Take 1 tablet by mouth once daily. RADHA: No LANSOPRAZOLE 15 MG CAPSULE,DELAYED RELEASE 60 capsule 11 Sig: Take 2 capsules by mouth once daily. RADHA: No Date of last office visit in primary care: 11/27/21 Please advise. Thank you. Mary Chen LPN documented in this encounter [facility] 02-27-2022 Miscellaneous Notes Patient has been identified by name and date of : Yes Patient phones for refill(s): Pending Prescriptions Disp Refills SPIRIVA RESPIMAT 2.5 MCG/ACTUATION SOLUTION FOR INHALATION 4 g 3 Sig: INHALE TWO PUFFS BY MOUTH EVERY DAY RADHA: Yes Date of last office visit in primary care: 01/09/22 Please advise. Thank you. Mary Chen LPN documented in this encounter [facility] 02-13-2022 History of Present illness Narrative Images from the original note were not included. . [facility] [place] Note Patient name: Kevin Post PCP: Gabriel Alcantara DO Referring Physician: same Consultation requested by Dr. Alcantara for an opinion regarding asthma. My final recommendations will be communicated back to the requesting physician by way of shared Medical record or letter to requesting physician via US mail. CC: Asthma/COPD HPI: Kevin Post 51 year old female current smoker with PMH significant for asthma, GERD, hypothyroidism who presents for evaluation of her obstructive lung disease. She was first diagnosed with asthma in her 20s. She initially did not require controller inhaler therapy but more recently has been on Symbicort and Spiriva. No associated atopic component. Shortness of breath worsened by exposure to heat and humidity, cold air and certain scents or odors. No nocturnal awakenings. She was told that she had COPD in the past but her current pulmonary function tests show no airflow obstruction. She does have a significant smoking history. Current pulmonary function tests are pertinent for a slightly decreased diffusing capacity which may represent early emphysema. From a respiratory standpoint, she has persistent shortness of breath. No audible wheezing. She uses her albuterol inhaler regularly which does improve her dyspnea. She has a cough productive of phlegm mainly in the morning. She is a regular marijuana smoker. Has noted a white coating on her tongue no soreness or difficulty swallowing. DATA: PFT 12/2021: Review of pulmonary function test shows no obstruction, lung volumes are within normal limits, diffusing capacity is slightly reduced Labs: Component Ref Range & Units 4 mo ago WBC 3.70 - 11.00 k/uL 9.61 RBC 3.90 - 5.20 m/uL 5.36 High Hemoglobin 11.5 - 15.5 g/dL 14.6 Hematocrit 36.0 - 46.0 % 47.2 High MCV 80.0 - 100.0 fL 88.1 MCH 26.0 - 34.0 pG 27.2 MCHC 30.5 - 36.0 g/dL 30.9 RDW-CV 11.5 - 15.0 % 15.1 High Platelet Count 150 - 400 k/uL 247 MPV 9.0 - 12.7 fL 12.0 Absolute nRBC <0.01 k/uL <0.01 WBC Imaging / Diagnostic Studies: No recent chest imaging Reviewed images of abdominal CT from February 2020. Lower lung cuts normal PAST MEDICAL HISTORY Diagnosis Date Abdominal pain, other specified site 10/13/2013 Asthma since early twenties Depressive disorder, not elsewhere classified Counseling center, Dr. Mancuso GERD (gastroesophageal reflux disease) Low back pain 08/04/2013 Marijuana use 06/2016 Mixed hyperlipidemia Hyperlipidemia Obesity (BMI 30-39.9) 03/28/2013 Thoracic back pain 08/04/2013 Unspecified hypothyroidism UTI (lower urinary tract infection) 05/04/2014 ALLERGIES Allergen Reactions Adhesive Tape (Rosa Isela* Rash Bactrim Ds [Sulfame* Hives Bee Venom Protein (* Itching Niaspan [Niacin (An* Hives Penicillins Rash albuterol HFA (VENTOLIN HFA) 90 mcg/actuation inhaler INHALE 2 PUFFS EVERY FOUR HOURS NEEDED FOR WHEEZING/SHORTNESS OF BREATH albuterol (PROVENTIL) 2.5 mg /3 mL (0.083 %) nebulizer solution Use 3 mL via nebulizer three times daily as needed for wheezing/shortness of breath. OVER 5-15 MINUTES. FOR WHEEZING AND SHORTNESS OF BREATH. albuterol (PROVENTIL) 2.5 mg /3 mL (0.083 %) nebulizer solution Use 3 mL via nebulizer every 4 hours as needed for wheezing/shortness of breath. Use over 5-15minutes. budesonide-formoterol (SYMBICORT) 160-4.5 mcg/actuation inhaler Inhale 2 Puffs as instructed twice daily. tiotropium bromide (SPIRIVA RESPIMAT) 2.5 mcg/actuation inhaler Inhale 2 Puffs as instructed once daily. nystatin (MYCOSTATIN) 100,000 unit/mL suspension Take 5 mL by mouth four times daily for 14 days. SWISH AND SWALLOW 5 mL 4 TIMES PER DAY. ibuprofen (MOTRIN) 800 mg tablet Take 1 tablet by mouth every 8 hours as needed (mild to moderate pain). Cholecalciferol, Vitamin D3, 125 mcg (5,000 unit) cap Take 1 capsule by mouth once daily. levothyroxine (SYNTHROID) 125 mcg tablet Take 1 tablet by mouth 6 days per week and a half tablet by mouth 1 day per week. Take on empty stomach. For Thyroid linaclotide (LINZESS) 145 mcg capsule Take 1 capsule by mouth DAILY (6 AM). oxybutynin ER (DITROPAN XL) 10 mg 24 hr tablet TAKE 1 TABLET BY MOUTH DAILY L. acidophilus-L. rhamnosus 15 billion cell cap Take 1 capsule by mouth once daily. Keep in the refrigerator. venlafaxine ER (EFFEXOR XR) 75 mg 24 hr capsule Take 1 capsule by mouth twice daily. polyethylene glycol 3350 (MIRALAX) 17 gram/dose powder Take 17 g by mouth as needed. Take 1 dose daily PO atorvastatin (LIPITOR) 40 mg tablet Take 1 tablet by mouth once daily. lansoprazole (PREVACID) 15 mg capsule Take 2 capsules by mouth once daily. fluticasone (FLONASE) 50 mcg/actuation nasal spray Use 2 Sprays in each nostril once daily. Rinse mouth after use. QUEtiapine (SEROQUEL) 50 mg tablet Take 50 mg by mouth twice daily. hydrOXYzine HCl (ATARAX) 25 mg tablet Take 1 tablet by mouth every 6 hours as needed for Itching/Rash. COMPOUNDED PRESCRIPTION Nebulizer Machine Dx: Asthma 493 Social History Tobacco Use Smoking status: Current Every Day Smoker Packs/day: 0.75 Years: 30.00 Pack years: 22.50 Types: Cigarettes Smokeless tobacco: Never Used Tobacco comment: 3/4ppd currently 02/13/22 Vaping Use Vaping Use: Never used Substance Use Topics Alcohol use: Yes Comment: occasional 1-2 drinks Drug use: Not Currently Comment: In the past Pets: Dog. No previous occupational exposures. No IV drug abuse. FAMILY HISTORY Problem Relation Age of Onset Stroke Mother Emphysema Mother Heart Father 50 Diabetes Father Asthma Sister Hypertension Maternal Grandmother Stroke Maternal Grandmother Heart Maternal Grandfather Diabetes Maternal Grandfather PAST SURGICAL HISTORY Procedure Laterality Date BREAST SURGERY PROCEDURE UNLISTED 08/19/2010 nonhealing ulcer right breast, skin graft, MRSA + COLONOSCOPY 02/12/2010 [facility], + internal hemorrhoids LAPAROSCOPY SURG CHOLECYSTECTOMY 04/26/2020 Cholecystectomy, lap LUMPECTOMY/RADIOTHERAPY DIAG MAMM/A10 05/11/2012 left breast, Dr. Silva LUMPECTOMY/RADIOTHERAPY DIAG MAMM/A10 09/11/2011 right breast, Dr. Silva PAST SURGICAL HISTORY OF teeth extraction REDUCTION OF LARGE BREAST 04/26/10 Performed by SHRUTHI ALBARRAN at [facility] PMH, Social history, family history and surgical history reviewed and updated in EMR REVIEW OF SYSTEMS: CONSTITUTIONAL: No fevers, chills, nightsweats, unintended weight loss HEENT: Denies headaches, nasal congestion/sinus symptoms, allergy problems, postnasal drip. EYES: No diplopia or blurry vision, itchy eyes. CARDIOVASCULAR: No chest pain,palpitations, orthopnea, PND, edema. PULM: See HPI GI: No dysphagia/odynophagia, problematic reflux, changes in stool habits. : No urinary complaints, including dysuria, gross hematuria or pyuria. NEURO: No new balance problems, peripheral weakness/paresthesias or numbness of concern. MUSC-SKEL: No new joint pain, swelling, or erythema. PSY: No concerns regarding depression, anxiety INTEGUMENTARY: No new skin changes, rashes or history of eczema PHYSICAL EXAMINATION: BP 106/60 Pulse 74 Resp 18 Wt 138 lb (62.6kg) SpO2 99% LMP 06/21/2018 General Appearance: Age-appropriate female no acute distress Skin: Skin color, texture, turgor normal, no suspicious rashes or lesions. Head: Normocephalic, no masses, lesions, tenderness or abnormalities. Eyes: Sclera, conjunctiva normal Oropharynx: Edentulous, white coating on tongue, no posterior pharyngeal thrush Neck: No JVD, no masses, no palpable thyroid Back: Chest configuration normal, nontender Lungs: Not labored, normal to percussion, no wheezes or crackles Heart: Regular rate and rhythm, no murmurs or gallops Extremities: No edema or clubbing Musculoskeletal: No joint deformities or joint effusions Neurologic: Alert and oriented, no focal findings Lymph Nodes: No cervical or supraclavicular adenopathy Assessment/Plan: 1. Mild intermittent asthma without complication -Most recent pulmonary function tests do not show fixed airflow obstruction which would suggest COPD, however, low diffusing capacity could represent early emphysema. -She will continue on her current inhaled therapy 2. Abnormal diffusing capacity on pulmonary function test -Chest CT to evaluate for emphysema 3. Cigarette smoker -Current 1/2 pack/day smoker -Smoking cessation recommended 4. Thrush -Nystatin swish and swallow -Reviewed oral hygiene with use of inhaled corticosteroids -Patient given a spacing device Lizbeth Mistry MD [facility] [place] documented in this encounter [facility] 01-17-2022 Miscellaneous Notes Called Alin They tell me the pt needs to take the script to a [employer] company and they need to call for prior auth. Pt notified. Called and spoke with pt. She has lost her insurance card. So we do have one scanned called insurance sat on hold for 15 minutes. Will have to try again later Specimen slightly hemolyzed. States we need to get an over ride for this so insurance will pay for it. Prior Auth is only for medication not medical equipment/supplies. Would recommend calling patient to see what medical supply company gave her the machine [employer], ect. Than contact them to see when machine was last issued and if patient can get new may just need order faxed to them. Lizbeth Amaral Ma MAYBE A PRIOR AUTH? Patient Kevin called, she stated insurance will not technical spec new nebulizer breathing machine until next year, she said our office needs to contact [facility] for overide to technical spec the machine this year, she didn't have ph# to call you guys have that information, she lost her card. Then hung up. documented in this encounter [facility] 01-15-2022 Miscellaneous Notes PFTs were not ordered by Dr. Mistry, but by Cyrus Templeton PA-C. There is a result note under kentrell order. Patient was notified of results at 1:11PM Cassidy Kellogg LPN Patient called to r/s appt from Nicolás Nava to Dr. Mistry per office request. Patient is asking if she could have PFT results before 02/13 appt. Please call patient at [phone] (sister phone). Her phone is currently not working. documented in this encounter [facility] 01-15-2022 History of Present illness Narrative PULM FUNCTION SMARTBLOCK: Provider: Emanuel Templeton PA-C Assisting Tech: Charley Hines RRT Spirometry: 1 DLCO: 1 LV - Box: 1 System: [id number] documented in this encounter [facility] 01-14-2022 Nurse Note REVIEW OF SYSTEMS: General: The patient denies fatigue, denies weight loss, denies weight gain, NOTES feeling hot, and NOTES feelings of cold. Eyes: The patient denies glaucoma, denies eye injury/surgery, wears glasses or contacts. Ear/Nose/Throat: The patient denies allergies, denies hayfever, denies ear infections, and denies bloody noses. Cardiovascular: The patient NOTES chest pain, denies heart disease, denies high blood pressure,denies cardiac stent, denies prior heart attack, denies irregular heart beat, NOTES high cholesterol, NOTES poor circulation, denies heart failure, other cardiac issues, denies claudication, denies cold feet, denies peripheral arterial stent. Respiratory: The patient denies tuberculosis, denies pneumonia, denies frequent cough, denies pulmonary embolism, denies shortness of breath, and denies coughing up blood. Gastrointestinal: The patient denies difficulty swallowing, denies acid reflux, denies ulcers, denies vomiting, denies jaundice/hepatitis, denies gallbladder problems, denies black or tarry stools, denies hemorrhoids, denies bleeding from rectum, denies diverticulitis, denies constipation, denies diarrhea, denies loss of stool control, and denies hernias. Kidney/Bladder: The patient denies kidney stones, NOTES urine infections, and denies bloody urine. Skin: The patient denies a history of skin cancer, denies bleeding/changing moles, and NOTES a history of skin rash. Neurologic: The patient denies a history of epilepsy/convulsions, NOTES headaches, NOTES head/spinal injuries, and denies stroke/TIA. Psychiatric: The patient denies psychiatric medications, denies depression, and denies voices, denies substance abuse. Endocrine: The patient NOTES thyroid disorders, denies diabetes, and denies hormonal problems. Hematologic: The patient NOTES a history of bruising, denies bleeding, and denies anemia, denies blood clots. Infections: The patient NOTES a history of measles and mumps, denies rheumatic fever, and NOTES sexually transmitted diseases. Musculoskeletal: The patient NOTES back pain/injury, NOTES back problems, denies sciatica, NOTES knee/foot trouble, denies arthritis, or denies gout. When was patient's last Mammogram screening? 2019 Last Colonoscopy: 2009 Rhianna Garcia RN documented in this encounter [facility] 01-14-2022 History of Present illness Narrative HISTORY AND PHYSICAL Kevin Britney Post 1970 REFERRING PHYSICIAN: Gabriel Alcantara DO CHIEF COMPLAINT: No chief complaint on file. HPI: The patient is a 51 year old female referred for endoscopy. Kevin notes no colon complaints. Patient denies any change in bowel habits, weight changes, blood in stools, black tarry stools or abdominal pain. Denies family history of colon issues. The patient NOTES history of acid reflux and occasional discomfort with swallowing. She is a current everyday smoker. Denies having EGD previously. Kevin has undergone prior endoscopy in 2009 with finding of hemorrhoids per history in Epic. Patient had recent emergency department visit 12/19/21 at [facility], records reviewed. Patient was evaluated for episode of lightheadedness which resolved after eating. PCP notes from 01/09/22 mention patient called squad the previous night for shortness of breath, no ED records found. Per patient she declined transport to ED stating I just needed a breathing treatment. Patient had pulmonary testing ordered by PCP but has not yet completed or scheduled these. Patient's past medical history is significant for asthma, COPD, depression, marijuana use, back pain, hypothyroidism.. She follows with Dr. Alcantara in primary care for her chronic medical conditions. Denies problems with sedation in the past, PAST MEDICAL HISTORY Diagnosis Date Abdominal pain, other specified site 10/13/2013 Asthma Depressive disorder, not elsewhere classified Counseling center, Dr. Mancuso GERD (gastroesophageal reflux disease) Low back pain 08/04/2013 Marijuana use 06/2016 Mixed hyperlipidemia Hyperlipidemia Obesity (BMI 30-39.9) 03/28/2013 Thoracic back pain 08/04/2013 Unspecified hypothyroidism UTI (lower urinary tract infection) 05/04/2014 PAST SURGICAL HISTORY Procedure Laterality Date BREAST SURGERY PROCEDURE UNLISTED 08/19/2010 nonhealing ulcer right breast, skin graft, MRSA + COLONOSCOPY 02/12/2010 [facility], + internal hemorrhoids LAPAROSCOPY SURG CHOLECYSTECTOMY 04/26/2020 Cholecystectomy, lap LUMPECTOMY/RADIOTHERAPY DIAG MAMM/A10 05/11/2012 left breast, Dr. Silva LUMPECTOMY/RADIOTHERAPY DIAG MAMM/A10 09/11/2011 right breast, Dr. Silva PAST SURGICAL HISTORY OF teeth extraction REDUCTION OF LARGE BREAST 04/26/10 Performed by SHRUTHI ALBARRAN at [facility] Current Outpatient Medications Medication Sig albuterol HFA (VENTOLIN HFA) 90 mcg/actuation inhaler INHALE 2 PUFFS EVERY FOUR HOURS NEEDED FOR WHEEZING/SHORTNESS OF BREATH albuterol (PROVENTIL) 2.5 mg /3 mL (0.083 %) nebulizer solution Use 3 mL via nebulizer three times daily as needed for wheezing/shortness of breath. OVER 5-15 MINUTES. FOR WHEEZING AND SHORTNESS OF BREATH. albuterol (PROVENTIL) 2.5 mg /3 mL (0.083 %) nebulizer solution Use 3 mL via nebulizer every 4 hours as needed for wheezing/shortness of breath. Use over 5-15minutes. ibuprofen (MOTRIN) 800 mg tablet Take 1 tablet by mouth every 8 hours as needed (mild to moderate pain). budesonide-formoterol (SYMBICORT) 160-4.5 mcg/actuation inhaler Inhale 2 Puffs as instructed twice daily. tiotropium bromide (SPIRIVA RESPIMAT) 2.5 mcg/actuation inhaler Inhale 2 Puffs as instructed once daily. Cholecalciferol, Vitamin D3, 125 mcg (5,000 unit) cap Take 1 capsule by mouth once daily. levothyroxine (SYNTHROID) 125 mcg tablet Take 1 tablet by mouth 6 days per week and a half tablet by mouth 1 day per week. Take on empty stomach. For Thyroid linaclotide (LINZESS) 145 mcg capsule Take 1 capsule by mouth DAILY (6 AM). (Patient not taking: Reported on 01/09/2022 ) oxybutynin ER (DITROPAN XL) 10 mg 24 hr tablet TAKE 1 TABLET BY MOUTH DAILY L. acidophilus-L. rhamnosus 15 billion cell cap Take 1 capsule by mouth once daily. Keep in the refrigerator. venlafaxine ER (EFFEXOR XR) 75 mg 24 hr capsule Take 1 capsule by mouth twice daily. polyethylene glycol 3350 (MIRALAX) 17 gram/dose powder Take 17 g by mouth as needed. Take 1 dose daily PO atorvastatin (LIPITOR) 40 mg tablet Take 1 tablet by mouth once daily. lansoprazole (PREVACID) 15 mg capsule Take 2 capsules by mouth once daily. fluticasone (FLONASE) 50 mcg/actuation nasal spray Use 2 Sprays in each nostril once daily. Rinse mouth after use. QUEtiapine (SEROQUEL) 50 mg tablet Take 50 mg by mouth twice daily. hydrOXYzine HCl (ATARAX) 25 mg tablet Take 1 tablet by mouth every 6 hours as needed for Itching/Rash. COMPOUNDED PRESCRIPTION Nebulizer Machine Dx: Asthma 493 (Patient taking differently: as needed. Nebulizer Machine Dx: Asthma 493 ) No current facility-administered medications for this visit. ALLERGIES: Adhesive Tape (Rosins), Bactrim Ds [Sulfamethoxazole-Trimethoprim], Bee Venom Protein (Honey Bee), Niaspan [Niacin (Antihyperlipidemic)], and Penicillins PERSONAL HISTORY: Social History Tobacco Use Smoking status: Current Every Day Smoker Packs/day: 0.30 Years: 30.00 Pack years: 9.00 Types: Cigarettes Smokeless tobacco: Never Used Tobacco comment: 8-10 cigarettes per day Vaping Use Vaping Use: Never used Substance Use Topics Alcohol use: Yes Comment: occasional 1-2 drinks Drug use: Not Currently Comment: In the past FAMILY HISTORY: FAMILY HISTORY Problem Relation Age of Onset Stroke Mother Heart Father 50 Diabetes Father Heart Maternal Grandfather Diabetes Maternal Grandfather Hypertension Maternal Grandmother Stroke Maternal Grandmother REVIEW OF SYMPTOMS: The review of systems data was entered by the nurse and reviewed by ak Nursing Notes: Rhianna Garcia RN 01/14/2022 1:41 PM Signed REVIEW OF SYSTEMS: General: The patient denies fatigue, denies weight loss, denies weight gain, NOTES feeling hot, and NOTES feelings of cold. Eyes: The patient denies glaucoma, denies eye injury/surgery, wears glasses or contacts. Ear/Nose/Throat: The patient denies allergies, denies hayfever, denies ear infections, and denies bloody noses. Cardiovascular: The patient NOTES chest pain, denies heart disease, denies high blood pressure,denies cardiac stent, denies prior heart attack, denies irregular heart beat, NOTES high cholesterol, NOTES poor circulation, denies heart failure, other cardiac issues, denies claudication, denies cold feet, denies peripheral arterial stent. Respiratory: The patient denies tuberculosis, denies pneumonia, denies frequent cough, denies pulmonary embolism, denies shortness of breath, and denies coughing up blood. Gastrointestinal: The patient denies difficulty swallowing, denies acid reflux, denies ulcers, denies vomiting, denies jaundice/hepatitis, denies gallbladder problems, denies black or tarry stools, denies hemorrhoids, denies bleeding from rectum, denies diverticulitis, denies constipation, denies diarrhea, denies loss of stool control, and denies hernias. Kidney/Bladder: The patient denies kidney stones, NOTES urine infections, and denies bloody urine. Skin: The patient denies a history of skin cancer, denies bleeding/changing moles, and NOTES a history of skin rash. Neurologic: The patient denies a history of epilepsy/convulsions, NOTES headaches, NOTES head/spinal injuries, and denies stroke/TIA. Psychiatric: The patient denies psychiatric medications, denies depression, and denies voices, denies substance abuse. Endocrine: The patient NOTES thyroid disorders, denies diabetes, and denies hormonal problems. Hematologic: The patient NOTES a history of bruising, denies bleeding, and denies anemia, denies blood clots. Infections: The patient NOTES a history of measles and mumps, denies rheumatic fever, and NOTES sexually transmitted diseases. Musculoskeletal: The patient NOTES back pain/injury, NOTES back problems, denies sciatica, NOTES knee/foot trouble, denies arthritis, or denies gout. When was patient's last Mammogram screening? 2019 Last Colonoscopy: 2009 Rhianna Garcia RN I have confirmed and edited as necessary, the PFSH and ROS obtained by others. Jerri Sands PA-C PHYSICAL EXAMINATION: General: The patient is 51 year old female, well nourished, well hydrated in no acute distress. The patient is oriented to time, place, and person. VITALS: Blood pressure 138/86, pulse 86, temperature 36.5 C (97.7 F), height 149.9 cm (4' 11), weight 68.2 kg (150 lb 6.4 oz), last menstrual period 06/21/2018, SpO2 98 %. Body mass index is 30.38 kg/m . HEENT: Normal cephalic, ataumatic, pupils are equally round, sclera are anicteric, mucous membranes are moist, oropharynx is clear. Neck has no masses, asymmetry or lymphadenopathy. Respiratory: Clear to auscultation and percussion. Normal respiratory excursion and pattern. Cardiac: Examination is regular rate and rhythm. Normal S1/S2 Abdominal exam: Soft, nontender, with no palpable masses. No hepatosplenomegaly. No palpable hernias. Extremities: no clubbing, cyanosis or edema. No adenopathy. LABORATORY VALUES: As Noted RADIOLOGIC STUDIES: As Noted Assessment IMPRESSION: encounter for screening colonoscopy. GERD. History of COPD and asthma, currently being worked up for worsening shortness of breath PLAN: I have reviewed my findings with the surgeon. Will plan for upper and lower endoscopy after completion of pulmonary testing/workup for shortness of breath. We discussed the risks and benefits of the planned endoscopy. I have informed the patient that complications can occur including failure to complete the endoscopy and perforation. The patient had the opportunity to ask questions concerning the planned endoscopy. My staff has also explained the procedure to the patient in understandable terms and has given the patient printed material concerning the procedure. The patient freely consents to surgery. The patient was offered a surgery/procedure at a [facility] facility. I have counseled the patient regarding the risk of exposure to and/or potential harm posed by the COVID-19 virus with having a surgery/procedure at this time versus the risk of delaying the surgery/procedure. It is not possible to know either the risk of delaying the surgery or procedure or chance of getting an infection with perfect accuracy, but a joint decision was made between the patient and myself to proceed at this time with endoscopy. I plan to use Golytely bowel preparation The patient has medical comorbidities for which we will plan for the procedure to be performed under [facility]. Patient will need to complete pulmonary testing as ordered and be medically cleared prior to elective procedures Patient verbalized understanding of all above and agreed with the plan. Diagnoses: (Z12.11) Encounter for screening for malignant neoplasm of colon (primary encounter diagnosis) (K21.9) Gastroesophageal reflux disease, unspecified whether esophagitis present (R13.10) Dysphagia, unspecified type Consultation requested by Dr. Alcantara for an opinion regarding screening colonoscopy. My final recommendations will be communicated back to the requesting physician by way of shared Medical record or letter to requesting physician via US mail. Jerri Sands PA-C documented in this encounter [facility] 01-09-2022 Instructions M Sukhjinder Templeton PA-C - 01/09/2022 2:29 PM EDT Pelvic Muscle (Kegel) Exercises Pelvic muscle exercises strengthen the pelvic muscles needed to help you regain urinary control. This card will give you information about them. How Do I Identify the Pelvic Muscles? To identify the pelvic muscles: Voluntarily stop the stream of urine. Tighten the muscles that are used to hold back gas when you don't want to pass it. How Do I Know I Am Using the Correct Muscles? Begin by urinating. While stream is flowing, voluntarily stop the stream and count to five; then begin to urinate again. Repeat the steps twice. Never use your stomach, leg, or buttocks muscles. Exercising these muscles will not help you to regain urinary control. To find out if you are also nayla your stomach muscle, place your hand on your abdomen while you squeeze your pelvic muscle. If you feel your abdomen move, you are using the wrong muscles. If you are having difficulty identifying these muscles, contact your doctor or nurse. How Often Should I Do the Exercise? Exercise these muscles throughout the day, not just when you urinate. Do ten exercises at least every hour while you are awake for a total of 120-200 a day. Tighten the pelvic muscle completely for ten seconds. The muscle may start to tire after six to eight exercises. If this happens, stop and go back to exercising later. Where Should I Do the Exercise? The exercises can be practiced anywhere and anytime. Most people seem to prefer exercising lying down on the bed or sitting in a chair. However, you should be able to do them in any position. To avoid urine leakage, tighten the muscle before you walk, before you sneeze, on the way to the bathroom, during urination, and when you stand up. When Will I Notice a Change? After six to eight weeks of consistent daily exercise, you will have fewer urinary accidents. After three to four months, you will notice an even bigger difference with better urinary control. Can These Exercises Harm Me? No, these exercises cannot harm you in any way. Most people find them relaxing and easy. If you get back pain or stomach pain after you exercise, you are probably trying too hard and using stomach or back muscles. If you experience headaches, you are also tensing your chest muscles and probably holding your breath. documented in this encounter [facility] 01-09-2022 History of Present illness Narrative 51 year old female with c/o Trouble breathing Feels needs an aerosol. Smoking 2 ppd Current medications: Budesonide-formoterol 160-4.5mcg/actuation 2 puffs twice a day Tiotropium bromide 2.5mcg/actuation Albuterol HFA 90mcg/actuation Has patches but hasn't started. No fever or chills. No illness. Called squad last night due to SOB. Concerned about incontinence which has occurred twice. Sometimes a tinkle, sometimes a gush. No pain, urgency, fever, chills, nausea. Drinking a lot of fluids. Last pelvic end of October- no issues. P1 SAB1 G0 HISTORIES FAMILY HISTORY Problem Relation Age of Onset Stroke Mother Heart Father 50 Diabetes Father Heart Maternal Grandfather Diabetes Maternal Grandfather Hypertension Maternal Grandmother Stroke Maternal Grandmother PAST MEDICAL HISTORY Diagnosis Date Abdominal pain, other specified site 10/13/2013 Asthma Depressive disorder, not elsewhere classified Counseling center, Dr. Mancuso GERD (gastroesophageal reflux disease) Low back pain 08/04/2013 Marijuana use 06/2016 Mixed hyperlipidemia Hyperlipidemia Obesity (BMI 30-39.9) 03/28/2013 Thoracic back pain 08/04/2013 Unspecified hypothyroidism UTI (lower urinary tract infection) 05/04/2014 PAST SURGICAL HISTORY Procedure Laterality Date BREAST SURGERY PROCEDURE UNLISTED 08/19/2010 nonhealing ulcer right breast, skin graft, MRSA + COLONOSCOPY 02/12/2010 [facility], + internal hemorrhoids LAPAROSCOPY SURG CHOLECYSTECTOMY 04/26/2020 Cholecystectomy, lap LUMPECTOMY/RADIOTHERAPY DIAG MAMM/A10 05/11/2012 left breast, Dr. Silva LUMPECTOMY/RADIOTHERAPY DIAG MAMM/A10 09/11/2011 right breast, Dr. Silva PAST SURGICAL HISTORY OF teeth extraction REDUCTION OF LARGE BREAST 04/26/10 Performed by SHRUTHI ALBARRAN at [facility] Social History Tobacco Use Smoking status: Current Every Day Smoker Packs/day: 0.30 Years: 30.00 Pack years: 9.00 Types: Cigarettes Smokeless tobacco: Never Used Tobacco comment: 8-10 cigarettes per day Vaping Use Vaping Use: Never used Substance Use Topics Alcohol use: Yes Comment: occasional 1-2 drinks Drug use: Not Currently Comment: In the past ACTIVE PROBLEM LIST Hypothyroidism Dysthymia Unspecified Asthma(493.90) Tobacco Abuse Heart Murmur Dyslipidemia (High Ldl; Low Hdl) Symptoms Involving Urinary System Left Arm Pain Neck Pain On Left Side Trichomonas Infection Alkaline Phosphatase Elevation Vitamin D Deficiency Current Outpatient Medications Medication Sig Dispense Refill ibuprofen (MOTRIN) 800 mg tablet Take 1 tablet by mouth every 8 hours as needed (mild to moderate pain). 30 tablet 3 budesonide-formoterol (SYMBICORT) 160-4.5 mcg/actuation inhaler Inhale 2 Puffs as instructed twice daily. 10.2 g 3 tiotropium bromide (SPIRIVA RESPIMAT) 2.5 mcg/actuation inhaler Inhale 2 Puffs as instructed once daily. 4 g 3 Cholecalciferol, Vitamin D3, 125 mcg (5,000 unit) cap Take 1 capsule by mouth once daily. 90 capsule 2 levothyroxine (SYNTHROID) 125 mcg tablet Take 1 tablet by mouth 6 days per week and a half tablet by mouth 1 day per week. Take on empty stomach. For Thyroid 30 tablet 3 oxybutynin ER (DITROPAN XL) 10 mg 24 hr tablet TAKE 1 TABLET BY MOUTH DAILY 30 tablet 11 L. acidophilus-L. rhamnosus 15 billion cell cap Take 1 capsule by mouth once daily. Keep in the refrigerator. 30 capsule 11 venlafaxine ER (EFFEXOR XR) 75 mg 24 hr capsule Take 1 capsule by mouth twice daily. 60 capsule 3 albuterol HFA (VENTOLIN HFA) 90 mcg/actuation inhaler INHALE 2 PUFFS EVERY FOUR HOURS NEEDED FOR WHEEZING/SHORTNESS OF BREATH 18 g 5 polyethylene glycol 3350 (MIRALAX) 17 gram/dose powder Take 17 g by mouth as needed. Take 1 dose daily PO 595 g 1 atorvastatin (LIPITOR) 40 mg tablet Take 1 tablet by mouth once daily. 90 tablet 3 lansoprazole (PREVACID) 15 mg capsule Take 2 capsules by mouth once daily. 60 capsule 11 fluticasone (FLONASE) 50 mcg/actuation nasal spray Use 2 Sprays in each nostril once daily. Rinse mouth after use. 1 Bottle 11 QUEtiapine (SEROQUEL) 50 mg tablet Take 50 mg by mouth twice daily. hydrOXYzine HCl (ATARAX) 25 mg tablet Take 1 tablet by mouth every 6 hours as needed for Itching/Rash. 60 tablet 2 linaclotide (LINZESS) 145 mcg capsule Take 1 capsule by mouth DAILY (6 AM). (Patient not taking: Reported on 01/09/2022 ) 30 capsule 5 COMPOUNDED PRESCRIPTION Nebulizer Machine Dx: Asthma 493 (Patient taking differently: as needed. Nebulizer Machine Dx: Asthma 493 ) 1 Device 0 No current facility-administered medications for this visit. COLORECTAL CANCER SCREENING due on 2017 MAMMOGRAM due on 08/22/2021 EXAM: BP 116/68 Pulse 88 Wt 68.5 kg (151 lb) LMP 06/21/2018 SpO2 94% BMI 29.49 kg/m Pleasant overweight adult woman in no acute distress. Alert and oriented all spheres. Normal affect and cognition. Speech normal. No deficits to learning or comprehension. Skin warm, dry, pink to lips and nailbeds. Normal turgor. Respirations regular and unlabored. HEENT: NCAT. No scleral icterus or conjunctival injection. TM's clear. Nose and oropharynx free from injection or lesion. Oral membranes moist and pink. No cervical lymph nodes. Thyroid non-tender, no masses, or enlargement. Carotids pulses 2+/4+ without bruits. No JVD with HOB at 30 degrees. Chest is normal shape. Lungs are clear to all mcmullen with good air exchange through out. HRRR without murmur or gallop. No lifts, heaves, or rubs. Abdomen: active bowel sounds throughout, soft, nontender, no masses or organomegaly. No CVAT. Extrem: no clubbing or cyanosis. Edema: none. Extremities are warm and pink with prompt capillary refill. Component Latest Ref Rng & Units 01/09/2022 GLUCOSE UA (POCT) Negative mg/dL Negative BILIRUBIN UA (POCT) Negative Negative KETONE UA (POCT) Negative mg/dL Negative SPECIFIC GRAVITY UA (POCT) 1.005 - 1.030 <=1.005 (A) HEMOGLOBIN/BLOOD UA (POCT) Negative Small (A) PH UA (POCT) 4.5 - 8.0 6.0 PROTEIN UA (POCT) Negative mg/dL Negative UROBILINOGEN UA (POCT) Normal E.U./dL 0.2 NITRITE UA (POCT) Negative Negative LEUKOCYTES UA (POCT) Negative Negative COLOR UA (POCT) Yellow CLARITY UA (POCT) Clear ASSESSMENT/PLAN: 1. Asthma with COPD with exacerbation (HCC) - ICD9: 493.22, ICD10: J44.1, J45.901 (primary diagnosis) Moderate persistent Asthma stable - Continue current meds - Avoidance of triggers recommended - NEBULIZER - SPIROMETRY WITH DILATOR IF OBSTRUCTED - LUNG VOLUMES - LUNG DIFFUSION CAPACITY (DLCO) - NEBULIZER ADMINISTRATION SET 2. Stress incontinence of urine - ICD9: [id number], ICD10: N39.3 Low suspicion UTI Needs further evaluation if persistent Seems to be mostly stress induced but infrequent Encouraged pelvic floor exercises Discussed PT consult but she will wait. - UA DIP, URINE (POC) - URINALYSIS, WITH MICROSCOPIC Emanuel Templeton PA-C documented in this encounter [facility] 01-02-2022 Miscellaneous Notes Patient has been identified by name and date of : Yes Pending Prescriptions Disp Refills IBUPROFEN 800 MG TABLET 30 tablet 3 Sig: Take 1 tablet by mouth every 8 hours as needed (mild to moderate pain). RADHA: No MERY-11/27/21 Labs-11/27/21 NOV-02/26/22 med filled 03/04/21 RX INSTRUCTIONS: Pharmacy initiated this request. No need to notify patient. Sofia Lares documented in this encounter [facility] 12-31-2021 Miscellaneous Notes Patient has been identified by name and date of : Yes Pending Prescriptions Disp Refills BUDESONIDE-FORMOTEROL HFA 160 MCG-4.5 MCG/ACTUATION AEROSOL INHALER 10.2 g 3 Sig: Inhale 2 Puffs as instructed twice daily. RADHA: No RX INSTRUCTIONS: Patient aware RX will be sent to pharmacy. No need to notify patient. Shauna Vargas Pss documented in this encounter [facility] 12-05-2021 Miscellaneous Notes Patient was scheduled for her colonoscopy with Dr. Payton, from the call center 12-12-2021. The office requested a consult prior to colonoscopy, an appointment has been set for 12/09/21 @ 8:30 am with Jerri Sands. Patient called back stating she needs to reschedule the appointment to an afternoon which is not until 01/14 Colonoscopy has been cancelled for now Rachel Lr PSS documented in this encounter [facility] 12-04-2021 Miscellaneous Notes Pt returned call & was notified of results & instructions. Pt was transferred to appt desk to schedule MRI. Mery Drummond LPN vm left with patient to contact office for results Mel Blanca Ma Please let Kevin know that we've received her RUQ ultrasound results. It does show increased echotexture of the liver. This means basically that it is not smooth. This can be related to a few things, which may be fatty liver, or possibly cirrhosis. I'm ordering her an MRI to take a closer look at her liver. Please assist her to schedule this test. Stefan Washington APRN.EMILIA documented in this encounter [facility] 11-29-2021 Miscellaneous Notes Pt notified and verbalized understanding Mel Blanca Ma Please let her know that her liver function tests remain elevated, but stable. We will know more following her liver ultrasound that she has scheduled. Stefan Washington APRN.EMILIA Pt calls requesting results of labs done on 11/27/21. Please advise. Trevor Zaman LPN documented in this encounter [facility] 11-13-2021 Miscellaneous Notes Called and spoke with patient. Notified of negative yeast, GCC, positive BV and trich. Metronidazole had been sent in by provider yesterday but to incorrect pharmacy, cancelled that RX to send to patient new pharmacy, the pharmacy patient requests is not recognized in the system and patient requests the medication to be sent to original [facility] in [place]. Medication sent. Discussed no alcohol while on this medication due to side effects. Abstain from sexual activity X 7 days after completion of medication. Rose Lemus PA-C November 13, 2021 10:07 AM Pt is returning call. Please advise. Pt returning phone call from this morning. Please call pt at [phone] documented in this encounter [facility] 11-11-2021 Instructions Geeta Chow APRN.VINEYARDIST - 11/11/2021 9:54 AM EDT Follow up with your (a) Family doctor within the next 2-3 days. If you do not have a Family doctor, please contact the physician (s) listed in these discharge papers first thing in the AM to at least schedule an appointment. If you are unable to be seen within 2-3 days, and your symptoms worsen or if you develop any new symptoms, immediately report back to an emergency department to be re-evaluated. Follow the below discharge instructions in the meantime. IF YOU ARE UNABLE TO BE SEEN BY YOUR FAMILY DOCTOR OR THE FAMILY DOCTOR WE HAVE REFERRED YOU TO IN THE GIVEN TIME FRAME ABOVE, PLEASE CALL THE BELOW PHONE NUMBER TO SCHEDULE AN APPOINTMENT WITH A [facility] FAMILY CARE PHYSICIAN: [facility] [phone] Vaginal Discharge You have been diagnosed with a vaginal discharge. Discharge (drainage) from the vagina often means there is an inflammation in the vagina. This is called vaginitis. Some other vaginitis symptoms are: Itching, burning and odor. Urinating (peeing) may be uncomfortable. The most common causes were checked during the evaluation today. However, other possible causes may need further evaluation by your family doctor or bore mill operator. Vaginal discharge and vaginitis have many causes. Some are: Hormonal changes from menopause in older women. Yeast Infections (Sammie vaginitis): This happens when yeast normally living in the vagina grows out of control. The normal (good) bacteria living in the vagina can be killed or weakened. This allows the yeast to overgrow. This can happen if you used an antibiotic recently. Recent illness and long-term diabetes can weaken the immune system. This means your body may not be able to keep the yeast under control. Nonspecific vaginitis: This results from abnormal bacterial overgrowth of the bacteria that usually live in the vagina. This may be caused by recent illness. It can also be caused by some medicines and douching. Gardnerella vaginitis (also called Bacterial Vaginosis) is a common infection that may result from overgrowth. Rarely, Gardnerella may be a sexually transmitted disease. Sexually Transmitted Diseases: Some STDs cause a lot of frothy discharge that smells very bad and is green. Trichomoniasis (trich) is one such STD. Chlamydia can also cause discharge. However, it may have little or no symptoms of which you are aware. Chlamydia may cause a severe (serious) disease called Pelvic Inflammatory Disease (PID). It may also cause the reproductive organs to scar, which causes chronic (ongoing) pelvic pain and infertility (the inability to have babies). Gonorrhea GC may cause heavy purulent (pus-like) discharge. It can also cause PID. Most STDs pass easily between sexual partners. You and your sexual partner(s) would need to be treated. Viral vaginitis: Herpes Simplex is often the cause. This causes a thin, watery discharge. It is linked with painful blisters on the vagina and swelling of the vaginal lips. Urination and sexual intercourse (sex) may be painful. It is a very infectious STD. Symptoms can be treated but there is no cure. Allergic vaginitis: The vagina gets irritated from coming into contact with certain substances. These include latex condoms, spermicidal jellies, soaps and bubble baths. It also includes vaginal douche products. If it is confirmed or suspected that you have an STD, tell your sexual partner(s). Then your partner can be checked by a doctor or the local health department. To protect yourself and your sexual partner from STDs, use a condom during intercourse (sex), especially if your diagnosis is uncertain and you are waiting for the results of pelvic cultures done during this visit. The health care provider who saw you feels it is OK to send you home. You may need to return here or go to the nearest Emergency Department if more symptoms develop. This might mean that you are having complications like worsening infection or bleeding. There could also be some other undiagnosed problem. It is important to have a follow-up. See your bore mill operator or family doctor in the next few days. The medical staff may have told your doctor about this visit. If not, be sure to do so yourself. If you don t have the right follow-up care available, tell members of the medical staff before you go. They can help make arrangements for you. YOU SHOULD SEEK MEDICAL ATTENTION IMMEDIATELY, EITHER HERE OR AT THE NEAREST EMERGENCY DEPARTMENT, IF ANY OF THE FOLLOWING OCCURS: Increasing pain in the abdomen (belly), pelvis or back. Large amounts of vaginal discharge or bleeding, passing large blood clots. Fever (temperature higher than 100.4 F / 38 C), chills, nausea, vomiting (throwing up). You are dizzy, lightheaded, or pass out. documented in this encounter [facility] 11-11-2021 History of Present illness Narrative Images from the original note were not included. This note was created using Trivnetter. Subjective Kevin Post is a 51 year old female. This is a 51-year-old female who presents to the [facility] with a chief complaint of vaginal irritation. Patient reports symptoms of vaginal irritation and vaginal discharge over the past couple of weeks. She was previously treated a month ago for trichomonas and yeast with no relief of symptoms. Patient reports she is sexually active and does not use any form of control. Denies fever, abdominal pain, rash, joint pain, back pain. The history is provided by the patient. Vaginal Problem This is a new problem. The current episode started in the past 7 days. The problem occurs constantly. The problem has been unchanged. Pertinent negatives include no abdominal pain, chest pain, chills, fever, headaches, nausea, neck pain, rash or vomiting. Nothing aggravates the symptoms. She has tried nothing for the symptoms. The treatment provided no relief. Review of Systems Constitutional: Negative for chills and fever. Respiratory: Negative for shortness of breath and wheezing. Cardiovascular: Negative for chest pain and palpitations. Gastrointestinal: Negative for abdominal pain, nausea and vomiting. Genitourinary: Positive for vaginal discharge. Negative for dysuria, frequency, urgency, vaginal bleeding and vaginal pain. Vaginal itching and irritation Musculoskeletal: Negative for neck pain. Skin: Negative for rash. Neurological: Negative for headaches. Objective BP 94/60 Pulse 61 Temp 36.8 C (98.3 F) (Oral) Resp 16 Wt 70.3 kg (155 lb) LMP 06/21/2018 SpO2 97% BMI 30.27 kg/m Physical Exam Vitals and nursing note reviewed. Exam conducted with a globe cleaner present. Constitutional: General: She is not in acute distress. Appearance: Normal appearance. She is not ill-appearing, toxic-appearing or diaphoretic. Cardiovascular: Rate and Rhythm: Normal rate and regular rhythm. Pulses: Normal pulses. Heart sounds: Normal heart sounds. Pulmonary: Effort: Pulmonary effort is normal. Breath sounds: Normal breath sounds. Abdominal: General: Abdomen is flat. Bowel sounds are normal. Palpations: Abdomen is soft. Tenderness: There is no abdominal tenderness. Genitourinary: Exam position: Knee-chest position. Pubic Area: No rash or pubic lice. Labia: Right: No rash, tenderness, lesion or injury. Left: No rash, tenderness, lesion or injury. Vagina: No foreign body. Vaginal discharge present. No erythema, tenderness or bleeding. Cervix: Friability present. No cervical motion tenderness, discharge, lesion, erythema, cervical bleeding or eversion. Uterus: Normal. Not deviated, not fixed and not tender. Adnexa: Right adnexa normal and left adnexa normal. Right: No tenderness. Left: No tenderness. Musculoskeletal: Cervical back: Normal range of motion and neck supple. Lymphadenopathy: Lower Body: No right inguinal adenopathy. No left inguinal adenopathy. Neurological: Mental Status: She is alert and oriented to person, place, and time. Assessment and Plan ASSESSMENT/PLAN: Green vaginal discharge present on exam. No signs of PID. GC/CAT/TV, BV, sammie cultures pending at this time. Pt reports no dysuria, frequency or urgency . Pt to follow up with PCP/appropriate clinician in [place] where her PCP is located. 1. Vaginal itching - ICD9: 698.1, ICD10: N89.8 (primary diagnosis) - as above - SAMMIE / TRICHOMONAS AMPLIFICATION - BACTERIAL VAGINOSIS AMPLIFICATION - GC/CHLAMYDIA DNA DET 2. Vaginal discharge - ICD9: 623.5, ICD10: N89.8 - Treated in Office with Ceftriaxone and Azithromycin - SAMMIE / TRICHOMONAS AMPLIFICATION - BACTERIAL VAGINOSIS AMPLIFICATION - GC/CHLAMYDIA DNA DET - CEFTRIAXONE 500 MG SOLUTION FOR INJECTION - AZITHROMYCIN 500 MG TABLET Geeta Chow APRN.EMILIA documented in this encounter [facility] 05-04-2014 History of Past i llness Narrative Problem Noted Date Resolved Date UTI (lower urinary tract infection) 05/04/2014 03/12/2017 Abdominal pain, other specified site 10/13/2013 03/12/2017 Thoracic back pain 08/04/2013 03/12/2017 Low back pain 08/04/2013 03/12/2017 Low HDL (under 40) 03/30/2013 03/12/2017 Obesity (BMI 30-39.9) 03/28/2013 03/12/2017 Extrinsic asthma, unspecified 04/08/2010 Hypertrophy of breast 12/17/2009 06/21/2013 Sprain of ankle, unspecified site 09/20/2007 09/30/2012 OBESITY 12/22/2005 03/28/2013 documented as of this encounter (statuses as of 11/11/2021) [facility] History of Past illness Narrative* Problem Noted Date Resolved Date UTI (lower urinary tract infection) 05/04/2014 03/12/2017 Abdominal pain, other specified site 10/13/2013 03/12/2017 Thoracic back pain 08/04/2013 03/12/2017 Low back pain 08/04/2013 03/12/2017 Low HDL (under 40) 03/30/2013 03/12/2017 Obesity (BMI 30-39.9) 03/28/2013 03/12/2017 Extrinsic asthma, unspecified 04/08/2010 Hypertrophy of breast 12/17/2009 06/21/2013 Sprain of ankle, unspecified site 09/20/2007 09/30/2012 OBESITY 12/22/2005 03/28/2013 documented as of this encounter (statuses as of 11/13/2021) [facility] History of Past illness Narrative* Problem Noted Date Resolved Date UTI (lower urinary tract infection) 05/04/2014 03/12/2017 Abdominal pain, other specified site 10/13/2013 03/12/2017 Thoracic back pain 08/04/2013 03/12/2017 Low back pain 08/04/2013 03/12/2017 Low HDL (under 40) 03/30/2013 03/12/2017 Obesity (BMI 30-39.9) 03/28/2013 03/12/2017 Extrinsic asthma, unspecified 04/08/2010 Hypertrophy of breast 12/17/2009 06/21/2013 Sprain of ankle, unspecified site 09/20/2007 09/30/2012 OBESITY 12/22/2005 03/28/2013 documented as of this encounter (statuses as of 11/29/2021) [facility] History of Past illness Narrative* Problem Noted Date Resolved Date UTI (lower urinary tract infection) 05/04/2014 03/12/2017 Abdominal pain, other specified site 10/13/2013 03/12/2017 Thoracic back pain 08/04/2013 03/12/2017 Low back pain 08/04/2013 03/12/2017 Low HDL (under 40) 03/30/2013 03/12/2017 Obesity (BMI 30-39.9) 03/28/2013 03/12/2017 Extrinsic asthma, unspecified 04/08/2010 Hypertrophy of breast 12/17/2009 06/21/2013 Sprain of ankle, unspecified site 09/20/2007 09/30/2012 OBESITY 12/22/2005 03/28/2013 documented as of this encounter (statuses as of 12/05/2021) [facility] History of Past illness Narrative* Problem Noted Date Resolved Date UTI (lower urinary tract infection) 05/04/2014 03/12/2017 Abdominal pain, other specified site 10/13/2013 03/12/2017 Thoracic back pain 08/04/2013 03/12/2017 Low back pain 08/04/2013 03/12/2017 Low HDL (under 40) 03/30/2013 03/12/2017 Obesity (BMI 30-39.9) 03/28/2013 03/12/2017 Extrinsic asthma, unspecified 04/08/2010 Hypertrophy of breast 12/17/2009 06/21/2013 Sprain of ankle, unspecified site 09/20/2007 09/30/2012 OBESITY 12/22/2005 03/28/2013 documented as of this encounter (statuses as of 12/05/2021) [facility]09-11-2014 History of Past illness Narrative* Problem Noted Date Resolved Date UTI (lower urinary tract infection) 05/04/2014 03/12/2017 Abdominal pain, other specified site 10/13/2013 03/12/2017 Thoracic back pain 08/04/2013 03/12/2017 Low back pain 08/04/2013 03/12/2017 Low HDL (under 40) 03/30/2013 03/12/2017 Obesity (BMI 30-39.9) 03/28/2013 03/12/2017 Extrinsic asthma, unspecified 04/08/2010 Hypertrophy of breast 12/17/2009 06/21/2013 Sprain of ankle, unspecified site 09/20/2007 09/30/2012 OBESITY 12/22/2005 03/28/2013 documented as of this encounter (statuses as of 12/25/2021) [facility] History of Past illness Narrative* Problem Noted Date Resolved Date UTI (lower urinary tract infection) 05/04/2014 03/12/2017 Abdominal pain, other specified site 10/13/2013 03/12/2017 Thoracic back pain 08/04/2013 03/12/2017 Low back pain 08/04/2013 03/12/2017 Low HDL (under 40) 03/30/2013 03/12/2017 Obesity (BMI 30-39.9) 03/28/2013 03/12/2017 Extrinsic asthma, unspecified 04/08/2010 Hypertrophy of breast 12/17/2009 06/21/2013 Sprain of ankle, unspecified site 09/20/2007 09/30/2012 OBESITY 12/22/2005 03/28/2013 documented as of this encounter (statuses as of 01/01/2022) [facility] History of Past illness Narrative* Problem Noted Date Resolved Date UTI (lower urinary tract infection) 05/04/2014 03/12/2017 Abdominal pain, other specified site 10/13/2013 03/12/2017 Thoracic back pain 08/04/2013 03/12/2017 Low back pain 08/04/2013 03/12/2017 Low HDL (under 40) 03/30/2013 03/12/2017 Obesity (BMI 30-39.9) 03/28/2013 03/12/2017 Extrinsic asthma, unspecified 04/08/2010 Hypertrophy of breast 12/17/2009 06/21/2013 Sprain of ankle, unspecified site 09/20/2007 09/30/2012 OBESITY 12/22/2005 03/28/2013 documented as of this encounter (statuses as of 01/02/2022) [facility] History of Past illness Narrative* Problem Noted Date Resolved Date UTI (lower urinary tract infection) 05/04/2014 03/12/2017 Abdominal pain, other specified site 10/13/2013 03/12/2017 Thoracic back pain 08/04/2013 03/12/2017 Low back pain 08/04/2013 03/12/2017 Low HDL (under 40) 03/30/2013 03/12/2017 Obesity (BMI 30-39.9) 03/28/2013 03/12/2017 Extrinsic asthma, unspecified 04/08/2010 Hypertrophy of breast 12/17/2009 06/21/2013 Sprain of ankle, unspecified site 09/20/2007 09/30/2012 OBESITY 12/22/2005 03/28/2013 documented as of this encounter (statuses as of 01/09/2022) [facility] History of Past illness Narrative* Problem Noted Date Resolved Date UTI (lower urinary tract infection) 05/04/2014 03/12/2017 Abdominal pain, other specified site 10/13/2013 03/12/2017 Thoracic back pain 08/04/2013 03/12/2017 Low back pain 08/04/2013 03/12/2017 Low HDL (under 40) 03/30/2013 03/12/2017 Obesity (BMI 30-39.9) 03/28/2013 03/12/2017 Extrinsic asthma, unspecified 04/08/2010 Hypertrophy of breast 12/17/2009 06/21/2013 Sprain of ankle, unspecified site 09/20/2007 09/30/2012 OBESITY 12/22/2005 03/28/2013 documented as of this encounter (statuses as of 01/15/2022) [facility] History of Past illness Narrative* Problem Noted Date Resolved Date UTI (lower urinary tract infection) 05/04/2014 03/12/2017 Abdominal pain, other specified site 10/13/2013 03/12/2017 Thoracic back pain 08/04/2013 03/12/2017 Low back pain 08/04/2013 03/12/2017 Low HDL (under 40) 03/30/2013 03/12/2017 Obesity (BMI 30-39.9) 03/28/2013 03/12/2017 Extrinsic asthma, unspecified 04/08/2010 Hypertrophy of breast 12/17/2009 06/21/2013 Sprain of ankle, unspecified site 09/20/2007 09/30/2012 OBESITY 12/22/2005 03/28/2013 documented as of this encounter (statuses as of 01/15/2022) [facility] History of Past illness Narrative* Problem Noted Date Resolved Date UTI (lower urinary tract infection) 05/04/2014 03/12/2017 Abdominal pain, other specified site 10/13/2013 03/12/2017 Thoracic back pain 08/04/2013 03/12/2017 Low back pain 08/04/2013 03/12/2017 Low HDL (under 40) 03/30/2013 03/12/2017 Obesity (BMI 30-39.9) 03/28/2013 03/12/2017 Extrinsic asthma, unspecified 04/08/2010 Hypertrophy of breast 12/17/2009 06/21/2013 Sprain of ankle, unspecified site 09/20/2007 09/30/2012 OBESITY 12/22/2005 03/28/2013 documented as of this encounter (statuses as of 01/15/2022) [facility] History of Past illness Narrative* Problem Noted Date Resolved Date UTI (lower urinary tract infection) 05/04/2014 03/12/2017 Abdominal pain, other specified site 10/13/2013 03/12/2017 Thoracic back pain 08/04/2013 03/12/2017 Low back pain 08/04/2013 03/12/2017 Low HDL (under 40) 03/30/2013 03/12/2017 Obesity (BMI 30-39.9) 03/28/2013 03/12/2017 Extrinsic asthma, unspecified 04/08/2010 Hypertrophy of breast 12/17/2009 06/21/2013 Sprain of ankle, unspecified site 09/20/2007 09/30/2012 OBESITY 12/22/2005 03/28/2013 documented as of this encounter (statuses as of 01/17/2022) [facility] History of Past illness Narrative* Problem Noted Date Resolved Date UTI (lower urinary tract infection) 05/04/2014 03/12/2017 Abdominal pain, other specified site 10/13/2013 03/12/2017 Thoracic back pain 08/04/2013 03/12/2017 Low back pain 08/04/2013 03/12/2017 Low HDL (under 40) 03/30/2013 03/12/2017 Obesity (BMI 30-39.9) 03/28/2013 03/12/2017 Extrinsic asthma, unspecified 04/08/2010 Hypertrophy of breast 12/17/2009 06/21/2013 Sprain of ankle, unspecified site 09/20/2007 09/30/2012 OBESITY 12/22/2005 03/28/2013 documented as of this encounter (statuses as of 02/13/2022) [facility] History of Past illness Narrative* Problem Noted Date Resolved Date UTI (lower urinary tract infection) 05/04/2014 03/12/2017 Abdominal pain, other specified site 10/13/2013 03/12/2017 Thoracic back pain 08/04/2013 03/12/2017 Low back pain 08/04/2013 03/12/2017 Low HDL (under 40) 03/30/2013 03/12/2017 Obesity (BMI 30-39.9) 03/28/2013 03/12/2017 Extrinsic asthma, unspecified 04/08/2010 Hypertrophy of breast 12/17/2009 06/21/2013 Sprain of ankle, unspecified site 09/20/2007 09/30/2012 OBESITY 12/22/2005 03/28/2013 documented as of this encounter (statuses as of 02/17/2022) [facility] History of Past illness Narrative* Problem Noted Date Resolved Date UTI (lower urinary tract infection) 05/04/2014 03/12/2017 Abdominal pain, other specified site 10/13/2013 03/12/2017 Thoracic back pain 08/04/2013 03/12/2017 Low back pain 08/04/2013 03/12/2017 Low HDL (under 40) 03/30/2013 03/12/2017 Obesity (BMI 30-39.9) 03/28/2013 03/12/2017 Extrinsic asthma, unspecified 04/08/2010 Hypertrophy of breast 12/17/2009 06/21/2013 Sprain of ankle, unspecified site 09/20/2007 09/30/2012 OBESITY 12/22/2005 03/28/2013 documented as of this encounter (statuses as of 02/17/2022) [facility] History of Past illness Narrative* Problem Noted Date Resolved Date UTI (lower urinary tract infection) 05/04/2014 03/12/2017 Abdominal pain, other specified site 10/13/2013 03/12/2017 Thoracic back pain 08/04/2013 03/12/2017 Low back pain 08/04/2013 03/12/2017 Low HDL (under 40) 03/30/2013 03/12/2017 Obesity (BMI 30-39.9) 03/28/2013 03/12/2017 Extrinsic asthma, unspecified 04/08/2010 Hypertrophy of breast 12/17/2009 06/21/2013 Sprain of ankle, unspecified site 09/20/2007 09/30/2012 OBESITY 12/22/2005 03/28/2013 documented as of this encounter (statuses as of 02/27/2022) [facility] History of Past illness Narrative* Problem Noted Date Resolved Date UTI (lower urinary tract infection) 05/04/2014 03/12/2017 Abdominal pain, other specified site 10/13/2013 03/12/2017 Thoracic back pain 08/04/2013 03/12/2017 Low back pain 08/04/2013 03/12/2017 Low HDL (under 40) 03/30/2013 03/12/2017 Obesity (BMI 30-39.9) 03/28/2013 03/12/2017 Extrinsic asthma, unspecified 04/08/2010 Hypertrophy of breast 12/17/2009 06/21/2013 Sprain of ankle, unspecified site 09/20/2007 09/30/2012 OBESITY 12/22/2005 03/28/2013 documented as of this encounter (statuses as of 02/27/2022) [facility] History of Past illness Narrative* Problem Noted Date Resolved Date UTI (lower urinary tract infection) 05/04/2014 03/12/2017 Abdominal pain, other specified site 10/13/2013 03/12/2017 Thoracic back pain 08/04/2013 03/12/2017 Low back pain 08/04/2013 03/12/2017 Low HDL (under 40) 03/30/2013 03/12/2017 Obesity (BMI 30-39.9) 03/28/2013 03/12/2017 Extrinsic asthma, unspecified 04/08/2010 Hypertrophy of breast 12/17/2009 06/21/2013 Sprain of ankle, unspecified site 09/20/2007 09/30/2012 OBESITY 12/22/2005 03/28/2013 documented as of this encounter (statuses as of 03/05/2022) [facility] History of Past illness Narrative* Problem Noted Date Resolved Date UTI (lower urinary tract infection) 05/04/2014 03/12/2017 Abdominal pain, other specified site 10/13/2013 03/12/2017 Thoracic back pain 08/04/2013 03/12/2017 Low back pain 08/04/2013 03/12/2017 Low HDL (under 40) 03/30/2013 03/12/2017 Obesity (BMI 30-39.9) 03/28/2013 03/12/2017 Extrinsic asthma, unspecified 04/08/2010 Hypertrophy of breast 12/17/2009 06/21/2013 Sprain of ankle, unspecified site 09/20/2007 09/30/2012 OBESITY 12/22/2005 03/28/2013 documented as of this encounter (statuses as of 03/13/2022) [facility]2014 History of Past illness Narrative* Problem Noted Date Resolved Date UTI (lower urinary tract infection) 05/04/2014 03/12/2017 Abdominal pain, other specified site 10/13/2013 03/12/2017 Thoracic back pain 08/04/2013 03/12/2017 Low back pain 08/04/2013 03/12/2017 Low HDL (under 40) 03/30/2013 03/12/2017 Obesity (BMI 30-39.9) 03/28/2013 03/12/2017 Extrinsic asthma, unspecified 04/08/2010 Hypertrophy of breast 12/17/2009 06/21/2013 Sprain of ankle, unspecified site 09/20/2007 09/30/2012 OBESITY 12/22/2005 03/28/2013 documented as of this encounter (statuses as of 03/17/2022) [facility] History of Past illness Narrative* Problem Noted Date Resolved Date UTI (lower urinary tract infection) 05/04/2014 03/12/2017 Abdominal pain, other specified site 10/13/2013 03/12/2017 Thoracic back pain 08/04/2013 03/12/2017 Low back pain 08/04/2013 03/12/2017 Low HDL (under 40) 03/30/2013 03/12/2017 Obesity (BMI 30-39.9) 03/28/2013 03/12/2017 Extrinsic asthma, unspecified 04/08/2010 Hypertrophy of breast 12/17/2009 06/21/2013 Sprain of ankle, unspecified site 09/20/2007 09/30/2012 OBESITY 12/22/2005 03/28/2013 documented as of this encounter (statuses as of 03/22/2022) [facility] History of Past illness Narrative* Problem Noted Date Resolved Date UTI (lower urinary tract infection) 05/04/2014 03/12/2017 Abdominal pain, other specified site 10/13/2013 03/12/2017 Thoracic back pain 08/04/2013 03/12/2017 Low back pain 08/04/2013 03/12/2017 Low HDL (under 40) 03/30/2013 03/12/2017 Obesity (BMI 30-39.9) 03/28/2013 03/12/2017 Extrinsic asthma, unspecified 04/08/2010 Hypertrophy of breast 12/17/2009 06/21/2013 Sprain of ankle, unspecified site 09/20/2007 09/30/2012 OBESITY 12/22/2005 03/28/2013 documented as of this encounter (statuses as of 03/22/2022) [facility] History of Past illness Narrative* Problem Noted Date Resolved Date UTI (lower urinary tract infection) 05/04/2014 03/12/2017 Abdominal pain, other specified site 10/13/2013 03/12/2017 Thoracic back pain 08/04/2013 03/12/2017 Low back pain 08/04/2013 03/12/2017 Low HDL (under 40) 03/30/2013 03/12/2017 Obesity (BMI 30-39.9) 03/28/2013 03/12/2017 Extrinsic asthma, unspecified 04/08/2010 Hypertrophy of breast 12/17/2009 06/21/2013 Sprain of ankle, unspecified site 09/20/2007 09/30/2012 OBESITY 12/22/2005 03/28/2013 documented as of this encounter (statuses as of 03/25/2022) [facility]2014 History of Past illness Narrative* Problem Noted Date Resolved Date UTI (lower urinary tract infection) 05/04/2014 03/12/2017 Abdominal pain, other specified site 10/13/2013 03/12/2017 Thoracic back pain 08/04/2013 03/12/2017 Low back pain 08/04/2013 03/12/2017 Low HDL (under 40) 03/30/2013 03/12/2017 Obesity (BMI 30-39.9) 03/28/2013 03/12/2017 Extrinsic asthma, unspecified 04/08/2010 Hypertrophy of breast 12/17/2009 06/21/2013 Sprain of ankle, unspecified site 09/20/2007 09/30/2012 OBESITY 12/22/2005 03/28/2013 documented as of this encounter (statuses as of 04/10/2022) [facility] History of Past illness Narrative* Problem Noted Date Resolved Date UTI (lower urinary tract infection) 05/04/2014 03/12/2017 Abdominal pain, other specified site 10/13/2013 03/12/2017 Thoracic back pain 08/04/2013 03/12/2017 Low back pain 08/04/2013 03/12/2017 Low HDL (under 40) 03/30/2013 03/12/2017 Obesity (BMI 30-39.9) 03/28/2013 03/12/2017 Extrinsic asthma, unspecified 04/08/2010 Hypertrophy of breast 12/17/2009 06/21/2013 Sprain of ankle, unspecified site 09/20/2007 09/30/2012 OBESITY 12/22/2005 03/28/2013 documented as of this encounter (statuses as of 04/18/2022) [facility] History of Past illness Narrative* Problem Noted Date Resolved Date UTI (lower urinary tract infection) 05/04/2014 03/12/2017 Abdominal pain, other specified site 10/13/2013 03/12/2017 Thoracic back pain 08/04/2013 03/12/2017 Low back pain 08/04/2013 03/12/2017 Low HDL (under 40) 03/30/2013 03/12/2017 Obesity (BMI 30-39.9) 03/28/2013 03/12/2017 Extrinsic asthma, unspecified 04/08/2010 Hypertrophy of breast 12/17/2009 06/21/2013 Sprain of ankle, unspecified site 09/20/2007 09/30/2012 OBESITY 12/22/2005 03/28/2013 documented as of this encounter (statuses as of 05/01/2022) [facility] History of Past illness Narrative* Problem Noted Date Resolved Date UTI (lower urinary tract infection) 05/04/2014 03/12/2017 Abdominal pain, other specified site 10/13/2013 03/12/2017 Thoracic back pain 08/04/2013 03/12/2017 Low back pain 08/04/2013 03/12/2017 Low HDL (under 40) 03/30/2013 03/12/2017 Obesity (BMI 30-39.9) 03/28/2013 03/12/2017 Extrinsic asthma, unspecified 04/08/2010 Hypertrophy of breast 12/17/2009 06/21/2013 Sprain of ankle, unspecified site 09/20/2007 09/30/2012 OBESITY 12/22/2005 03/28/2013 documented as of this encounter (statuses as of 05/21/2022) [facility] History of Past illness Narrative* Problem Noted Date Resolved Date UTI (lower urinary tract infection) 05/04/2014 03/12/2017 Abdominal pain, other specified site 10/13/2013 03/12/2017 Thoracic back pain 08/04/2013 03/12/2017 Low back pain 08/04/2013 03/12/2017 Low HDL (under 40) 03/30/2013 03/12/2017 Obesity (BMI 30-39.9) 03/28/2013 03/12/2017 Extrinsic asthma, unspecified 04/08/2010 Hypertrophy of breast 12/17/2009 06/21/2013 Sprain of ankle, unspecified site 09/20/2007 09/30/2012 OBESITY 12/22/2005 03/28/2013 documented as of this encounter (statuses as of 06/11/2022) [facility] History of Past illness Narrative* Problem Noted Date Resolved Date UTI (lower urinary tract infection) 05/04/2014 03/12/2017 Abdominal pain, other specified site 10/13/2013 03/12/2017 Thoracic back pain 08/04/2013 03/12/2017 Low back pain 08/04/2013 03/12/2017 Low HDL (under 40) 03/30/2013 03/12/2017 Obesity (BMI 30-39.9) 03/28/2013 03/12/2017 Extrinsic asthma, unspecified 04/08/2010 Hypertrophy of breast 12/17/2009 06/21/2013 Sprain of ankle, unspecified site 09/20/2007 09/30/2012 OBESITY 12/22/2005 03/28/2013 documented as of this encounter (statuses as of 06/16/2022) [facility] History of Past illness Narrative* Problem Noted Date Resolved Date UTI (lower urinary tract infection) 05/04/2014 03/12/2017 Abdominal pain, other specified site 10/13/2013 03/12/2017 Thoracic back pain 08/04/2013 03/12/2017 Low back pain 08/04/2013 03/12/2017 Low HDL (under 40) 03/30/2013 03/12/2017 Obesity (BMI 30-39.9) 03/28/2013 03/12/2017 Extrinsic asthma, unspecified 04/08/2010 Hypertrophy of breast 12/17/2009 06/21/2013 Sprain of ankle, unspecified site 09/20/2007 09/30/2012 OBESITY 12/22/2005 03/28/2013 documented as of this encounter (statuses as of 07/15/2022) [facility] History of Past illness Narrative* Problem Noted Date Resolved Date UTI (lower urinary tract infection) 05/04/2014 03/12/2017 Abdominal pain, other specified site 10/13/2013 03/12/2017 Thoracic back pain 08/04/2013 03/12/2017 Low back pain 08/04/2013 03/12/2017 Low HDL (under 40) 03/30/2013 03/12/2017 Obesity (BMI 30-39.9) 03/28/2013 03/12/2017 Extrinsic asthma, unspecified 04/08/2010 Hypertrophy of breast 12/17/2009 06/21/2013 Sprain of ankle, unspecified site 09/20/2007 09/30/2012 OBESITY 12/22/2005 03/28/2013 documented as of this encounter (statuses as of 08/17/2022) [facility] History of Past illness Narrative* Problem Noted Date Resolved Date UTI (lower urinary tract infection) 05/04/2014 03/12/2017 Abdominal pain, other specified site 10/13/2013 03/12/2017 Thoracic back pain 08/04/2013 03/12/2017 Low back pain 08/04/2013 03/12/2017 Low HDL (under 40) 03/30/2013 03/12/2017 Obesity (BMI 30-39.9) 03/28/2013 03/12/2017 Extrinsic asthma, unspecified 04/08/2010 Hypertrophy of breast 12/17/2009 06/21/2013 Sprain of ankle, unspecified site 09/20/2007 09/30/2012 OBESITY 12/22/2005 03/28/2013 documented as of this encounter (statuses as of 09/01/2022) [facility] History of Past illness Narrative* Problem Noted Date Resolved Date UTI (lower urinary tract infection) 05/04/2014 03/12/2017 Abdominal pain, other specified site 10/13/2013 03/12/2017 Thoracic back pain 08/04/2013 03/12/2017 Low back pain 08/04/2013 03/12/2017 Low HDL (under 40) 03/30/2013 03/12/2017 Obesity (BMI 30-39.9) 03/28/2013 03/12/2017 Extrinsic asthma, unspecified 04/08/2010 Hypertrophy of breast 12/17/2009 06/21/2013 Sprain of ankle, unspecified site 09/20/2007 09/30/2012 OBESITY 12/22/2005 03/28/2013 documented as of this encounter (statuses as of 12/06/2022) [facility] History of Past illness Narrative* Problem Noted Date Resolved Date UTI (lower urinary tract infection) 05/04/2014 03/12/2017 Abdominal pain, other specified site 10/13/2013 03/12/2017 Thoracic back pain 08/04/2013 03/12/2017 Low back pain 08/04/2013 03/12/2017 Low HDL (under 40) 03/30/2013 03/12/2017 Obesity (BMI 30-39.9) 03/28/2013 03/12/2017 Extrinsic asthma, unspecified 04/08/2010 Hypertrophy of breast 12/17/2009 06/21/2013 Sprain of ankle, unspecified site 09/20/2007 09/30/2012 OBESITY 12/22/2005 03/28/2013 documented as of this encounter (statuses as of 12/09/2022) [facility] History of Past illness Narrative* Problem Noted Date Resolved Date UTI (lower urinary tract infection) 05/04/2014 03/12/2017 Abdominal pain, other specified site 10/13/2013 03/12/2017 Thoracic back pain 08/04/2013 03/12/2017 Low back pain 08/04/2013 03/12/2017 Low HDL (under 40) 03/30/2013 03/12/2017 Obesity (BMI 30-39.9) 03/28/2013 03/12/2017 Extrinsic asthma, unspecified 04/08/2010 Hypertrophy of breast 12/17/2009 06/21/2013 Sprain of ankle, unspecified site 09/20/2007 09/30/2012 OBESITY 12/22/2005 03/28/2013 documented as of this encounter (statuses as of 12/11/2022) [facility] History of Past illness Narrative* Problem Noted Date Resolved Date UTI (lower urinary tract infection) 05/04/2014 03/12/2017 Abdominal pain, other specified site 10/13/2013 03/12/2017 Thoracic back pain 08/04/2013 03/12/2017 Low back pain 08/04/2013 03/12/2017 Low HDL (under 40) 03/30/2013 03/12/2017 Obesity (BMI 30-39.9) 03/28/2013 03/12/2017 Extrinsic asthma, unspecified 04/08/2010 Hypertrophy of breast 12/17/2009 06/21/2013 Sprain of ankle, unspecified site 09/20/2007 09/30/2012 OBESITY 12/22/2005 03/28/2013 documented as of this encounter (statuses as of 12/11/2022) [facility] History of Past illness Narrative* Problem Noted Date Resolved Date UTI (lower urinary tract infection) 05/04/2014 03/12/2017 Abdominal pain, other specified site 10/13/2013 03/12/2017 Thoracic back pain 08/04/2013 03/12/2017 Low back pain 08/04/2013 03/12/2017 Low HDL (under 40) 03/30/2013 03/12/2017 Obesity (BMI 30-39.9) 03/28/2013 03/12/2017 Extrinsic asthma, unspecified 04/08/2010 Hypertrophy of breast 12/17/2009 06/21/2013 Sprain of ankle, unspecified site 09/20/2007 09/30/2012 OBESITY 12/22/2005 03/28/2013 documented as of this encounter (statuses as of 12/18/2022) [facility] History of Past illness Narrative* Problem Noted Date Resolved Date UTI (lower urinary tract infection) 05/04/2014 03/12/2017 Abdominal pain, other specified site 10/13/2013 03/12/2017 Thoracic back pain 08/04/2013 03/12/2017 Low back pain 08/04/2013 03/12/2017 Low HDL (under 40) 03/30/2013 03/12/2017 Obesity (BMI 30-39.9) 03/28/2013 03/12/2017 Extrinsic asthma, unspecified 04/08/2010 Hypertrophy of breast 12/17/2009 06/21/2013 Sprain of ankle, unspecified site 09/20/2007 09/30/2012 OBESITY 12/22/2005 03/28/2013 documented as of this encounter (statuses as of 12/31/2022) [facility] History of Past illness Narrative* Problem Noted Date Resolved Date UTI (lower urinary tract infection) 05/04/2014 03/12/2017 Abdominal pain, other specified site 10/13/2013 03/12/2017 Thoracic back pain 08/04/2013 03/12/2017 Low back pain 08/04/2013 03/12/2017 Low HDL (under 40) 03/30/2013 03/12/2017 Obesity (BMI 30-39.9) 03/28/2013 03/12/2017 Extrinsic asthma, unspecified 04/08/2010 Hypertrophy of breast 12/17/2009 06/21/2013 Sprain of ankle, unspecified site 09/20/2007 09/30/2012 OBESITY 12/22/2005 03/28/2013 documented as of this encounter (statuses as of 01/01/2023) [facility] History of Past illness Narrative* Problem Noted Date Resolved Date UTI (lower urinary tract infection) 05/04/2014 03/12/2017 Abdominal pain, other specified site 10/13/2013 03/12/2017 Thoracic back pain 08/04/2013 03/12/2017 Low back pain 08/04/2013 03/12/2017 Low HDL (under 40) 03/30/2013 03/12/2017 Obesity (BMI 30-39.9) 03/28/2013 03/12/2017 Extrinsic asthma, unspecified 04/08/2010 Hypertrophy of breast 12/17/2009 06/21/2013 Sprain of ankle, unspecified site 09/20/2007 09/30/2012 OBESITY 12/22/2005 03/28/2013 documented as of this encounter (statuses as of 01/01/2023) [facility] History of Past illness Narrative* Problem Noted Date Resolved Date UTI (lower urinary tract infection) 05/04/2014 03/12/2017 Abdominal pain, other specified site 10/13/2013 03/12/2017 Thoracic back pain 08/04/2013 03/12/2017 Low back pain 08/04/2013 03/12/2017 Low HDL (under 40) 03/30/2013 03/12/2017 Obesity (BMI 30-39.9) 03/28/2013 03/12/2017 Extrinsic asthma, unspecified 04/08/2010 Hypertrophy of breast 12/17/2009 06/21/2013 Sprain of ankle, unspecified site 09/20/2007 09/30/2012 OBESITY 12/22/2005 03/28/2013 documented as of this encounter (statuses as of 01/29/2023) [facility] History of Past illness Narrative* Problem Noted Date Resolved Date UTI (lower urinary tract infection) 05/04/2014 03/12/2017 Abdominal pain, other specified site 10/13/2013 03/12/2017 Thoracic back pain 08/04/2013 03/12/2017 Low back pain 08/04/2013 03/12/2017 Low HDL (under 40) 03/30/2013 03/12/2017 Obesity (BMI 30-39.9) 03/28/2013 03/12/2017 Extrinsic asthma, unspecified 04/08/2010 Hypertrophy of breast 12/17/2009 06/21/2013 Sprain of ankle, unspecified site 09/20/2007 09/30/2012 OBESITY 12/22/2005 03/28/2013 documented as of this encounter (statuses as of 02/04/2023) [facility] History of Past illness Narrative* Problem Noted Date Resolved Date UTI (lower urinary tract infection) 05/04/2014 03/12/2017 Abdominal pain, other specified site 10/13/2013 03/12/2017 Thoracic back pain 08/04/2013 03/12/2017 Low back pain 08/04/2013 03/12/2017 Low HDL (under 40) 03/30/2013 03/12/2017 Obesity (BMI 30-39.9) 03/28/2013 03/12/2017 Extrinsic asthma, unspecified 04/08/2010 Hypertrophy of breast 12/17/2009 06/21/2013 Sprain of ankle, unspecified site 09/20/2007 09/30/2012 OBESITY 12/22/2005 03/28/2013 documented as of this encounter (statuses as of 02/05/2023) [facility] History of Past illness Narrative* Problem Noted Date Resolved Date UTI (lower urinary tract infection) 05/04/2014 03/12/2017 Abdominal pain, other specified site 10/13/2013 03/12/2017 Thoracic back pain 08/04/2013 03/12/2017 Low back pain 08/04/2013 03/12/2017 Low HDL (under 40) 03/30/2013 03/12/2017 Obesity (BMI 30-39.9) 03/28/2013 03/12/2017 Extrinsic asthma, unspecified 04/08/2010 Hypertrophy of breast 12/17/2009 06/21/2013 Sprain of ankle, unspecified site 09/20/2007 09/30/2012 OBESITY 12/22/2005 03/28/2013 documented as of this encounter (statuses as of 02/17/2023) [facility]2014 History of Past illness Narrative* Problem Noted Date Diagnosed Date Resolved Date UTI (lower urinary tract infection) 05/04/2014 03/12/2017 Abdominal pain, other specified site 10/13/2013 03/12/2017 Thoracic back pain 08/04/2013 7 Low back pain 08/04/2013 03/12/2017 Low HDL (under 40) 03/30/2013 7 Obesity (BMI 30-39.9) 03/28/20132016 Extrinsic asthma, unspecified 04/08/2010 03/28/2013 Hypertrophy of breast 12/17/20092012 Sprain of ankle, unspecified site 09/20/2007 09/30/2012 OBESITY 12/22/2005 03/28/2013 documented as of this encounter (statuses as of 03/25/2023) [facility] History of Past illness Narrative* Problem Noted Date Diagnosed Date Resolved Date UTI (lower urinary tract infection) 05/04/2014 03/12/2017 Abdominal pain, other specified site 10/13/2013 03/12/2017 Thoracic back pain 08/04/2013 7 Low back pain 08/04/2013 03/12/2017 Low HDL (under 40) 03/30/2013 7 Obesity (BMI 30-39.9) 03/28/20132016 Extrinsic asthma, unspecified 04/08/2010 03/28/2013 Hypertrophy of breast 12/17/20092012 Sprain of ankle, unspecified site 09/20/2007 09/30/2012 OBESITY 12/22/2005 03/28/2013 documented as of this encounter (statuses as of 03/25/2023) [facility] History of Past illness Narrative* Problem Noted Date Diagnosed Date Resolved Date UTI (lower urinary tract infection) 05/04/2014 03/12/2017 Abdominal pain, other specified site 10/13/2013 03/12/2017 Thoracic back pain 08/04/2013 7 Low back pain 08/04/2013 03/12/2017 Low HDL (under 40) 03/30/2013 7 Obesity (BMI 30-39.9) 03/28/20132016 Extrinsic asthma, unspecified 04/08/2010 03/28/2013 Hypertrophy of breast 12/17/20092012 Sprain of ankle, unspecified site 09/20/2007 09/30/2012 OBESITY 12/22/2005 03/28/2013 documented as of this encounter (statuses as of 04/21/2023) [facility] History of Past illness Narrative* Problem Noted Date Diagnosed Date Resolved Date UTI (lower urinary tract infection) 05/04/2014 03/12/2017 Abdominal pain, other specified site 10/13/2013 03/12/2017 Thoracic back pain 08/04/2013 7 Low back pain 08/04/2013 03/12/2017 Low HDL (under 40) 03/30/2013 7 Obesity (BMI 30-39.9) 03/28/20132016 Extrinsic asthma, unspecified 04/08/2010 03/28/2013 Hypertrophy of breast 12/17/20092012 Sprain of ankle, unspecified site 09/20/2007 09/30/2012 OBESITY 12/22/2005 03/28/2013 documented as of this encounter (statuses as of 04/23/2023) [facility] History of Past illness Narrative* Problem Noted Date Diagnosed Date Resolved Date UTI (lower urinary tract infection) 05/04/2014 03/12/2017 Abdominal pain, other specified site 10/13/2013 03/12/2017 Thoracic back pain 08/04/2013 7 Low back pain 08/04/2013 03/12/2017 Low HDL (under 40) 03/30/2013 7 Obesity (BMI 30-39.9) 03/28/20132016 Extrinsic asthma, unspecified 04/08/2010 03/28/2013 Hypertrophy of breast 12/17/20092012 Sprain of ankle, unspecified site 09/20/2007 09/30/2012 OBESITY 12/22/2005 03/28/2013 documented as of this encounter (statuses as of 04/23/2023) [facility] History of Past illness Narrative* Problem Noted Date Diagnosed Date Resolved Date UTI (lower urinary tract infection) 05/04/2014 03/12/2017 Abdominal pain, other specified site 10/13/2013 03/12/2017 Thoracic back pain 08/04/2013 7 Low back pain 08/04/2013 03/12/2017 Low HDL (under 40) 03/30/2013 7 Obesity (BMI 30-39.9) 03/28/20132016 Extrinsic asthma, unspecified 04/08/2010 03/28/2013 Hypertrophy of breast 12/17/20092012 Sprain of ankle, unspecified site 09/20/2007 09/30/2012 OBESITY 12/22/2005 03/28/2013 documented as of this encounter (statuses as of 06/28/2023) [facility] History of Past illness Narrative* Problem Noted Date Diagnosed Date Resolved Date UTI (lower urinary tract infection) 05/04/2014 03/12/2017 Abdominal pain, other specified site 10/13/2013 03/12/2017 Thoracic back pain 08/04/2013 7 Low back pain 08/04/2013 03/12/2017 Low HDL (under 40) 03/30/2013 7 Obesity (BMI 30-39.9) 03/28/20132016 Extrinsic asthma, unspecified 04/08/2010 03/28/2013 Hypertrophy of breast 12/17/20092012 Sprain of ankle, unspecified site 09/20/2007 09/30/2012 OBESITY 12/22/2005 03/28/2013 documented as of this encounter (statuses as of 07/24/2023) [facility] History of Past illness Narrative* Problem Noted Date Diagnosed Date Resolved Date UTI (lower urinary tract infection) 05/04/2014 03/12/2017 Abdominal pain, other specified site 10/13/2013 03/12/2017 Thoracic back pain 08/04/2013 7 Low back pain 08/04/2013 03/12/2017 Low HDL (under 40) 03/30/2013 7 Obesity (BMI 30-39.9) 03/28/20132016 Extrinsic asthma, unspecified 04/08/2010 03/28/2013 Hypertrophy of breast 12/17/20092012 Sprain of ankle, unspecified site 09/20/2007 09/30/2012 OBESITY 12/22/2005 03/28/2013 documented as of this encounter (statuses as of 08/03/2023) [facility] History of Past illness Narrative* Problem Noted Date Diagnosed Date Resolved Date UTI (lower urinary tract infection) 05/04/2014 03/12/2017 Abdominal pain, other specified site 10/13/2013 03/12/2017 Thoracic back pain 08/04/2013 7 Low back pain 08/04/2013 03/12/2017 Low HDL (under 40) 03/30/2013 7 Obesity (BMI 30-39.9) 03/28/20132016 Extrinsic asthma, unspecified 04/08/2010 03/28/2013 Hypertrophy of breast 12/17/20092012 Sprain of ankle, unspecified site 09/20/2007 09/30/2012 OBESITY 12/22/2005 03/28/2013 documented as of this encounter (statuses as of 08/04/2023) [facility] History of Past illness Narrative* Problem Noted Date Diagnosed Date Resolved Date UTI (lower urinary tract infection) 05/04/2014 03/12/2017 Abdominal pain, other specified site 10/13/2013 03/12/2017 Thoracic back pain 08/04/2013 7 Low back pain 08/04/2013 03/12/2017 Low HDL (under 40) 03/30/2013 7 Obesity (BMI 30-39.9) 03/28/20132016 Extrinsic asthma, unspecified 04/08/2010 03/28/2013 Hypertrophy of breast 12/17/20092012 Sprain of ankle, unspecified site 09/20/2007 09/30/2012 OBESITY 12/22/2005 03/28/2013 documented as of this encounter (statuses as of 08/05/2023) [facility] History of Past illness Narrative* Problem Noted Date Diagnosed Date Resolved Date UTI (lower urinary tract infection) 05/04/2014 03/12/2017 Abdominal pain, other specified site 10/13/2013 03/12/2017 Thoracic back pain 08/04/2013 7 Low back pain 08/04/2013 03/12/2017 Low HDL (under 40) 03/30/2013 7 Obesity (BMI 30-39.9) 03/28/20132016 Extrinsic asthma, unspecified 04/08/2010 03/28/2013 Hypertrophy of breast 12/17/20092012 Sprain of ankle, unspecified site 09/20/2007 09/30/2012 OBESITY 12/22/2005 03/28/2013 documented as of this encounter (statuses as of 09/30/2023) [facility] History of Past illness Narrative* Problem Noted Date Diagnosed Date Resolved Date UTI (lower urinary tract infection) 05/04/2014 03/12/2017 Abdominal pain, other specified site 10/13/2013 03/12/2017 Thoracic back pain 08/04/2013 7 Low back pain 08/04/2013 03/12/2017 Low HDL (under 40) 03/30/2013 7 Obesity (BMI 30-39.9) 03/28/20132016 Extrinsic asthma, unspecified 04/08/2010 03/28/2013 Hypertrophy of breast 12/17/20092012 Sprain of ankle, unspecified site 09/20/2007 09/30/2012 OBESITY 12/22/2005 03/28/2013 documented as of this encounter (statuses as of 10/14/2023) [facility] History of Past illness Narrative* Problem Noted Date Diagnosed Date Resolved Date UTI (lower urinary tract infection) 05/04/2014 03/12/2017 Abdominal pain, other specified site 10/13/2013 03/12/2017 Thoracic back pain 08/04/2013 7 Low back pain 08/04/2013 03/12/2017 Low HDL (under 40) 03/30/2013 7 Obesity (BMI 30-39.9) 03/28/20132016 Extrinsic asthma, unspecified 04/08/2010 03/28/2013 Hypertrophy of breast 12/17/20092012 Sprain of ankle, unspecified site 09/20/2007 09/30/2012 OBESITY 12/22/2005 03/28/2013 documented as of this encounter (statuses as of 10/21/2023) [facility] History of Past illness Narrative* Problem Noted Date Diagnosed Date Resolved Date UTI (lower urinary tract infection) 05/04/2014 03/12/2017 Abdominal pain, other specified site 10/13/2013 03/12/2017 Thoracic back pain 08/04/2013 7 Low back pain 08/04/2013 03/12/2017 Low HDL (under 40) 03/30/2013 7 Obesity (BMI 30-39.9) 03/28/20132016 Extrinsic asthma, unspecified 04/08/2010 03/28/2013 Hypertrophy of breast 12/17/20092012 Sprain of ankle, unspecified site 09/20/2007 09/30/2012 OBESITY 12/22/2005 03/28/2013 documented as of this encounter (statuses as of 10/27/2023) [facility] History of Past illness Narrative* Problem Noted Date Diagnosed Date Resolved Date UTI (lower urinary tract infection) 05/04/2014 03/12/2017 Abdominal pain, other specified site 10/13/2013 03/12/2017 Thoracic back pain 08/04/2013 7 Low back pain 08/04/2013 03/12/2017 Low HDL (under 40) 03/30/2013 7 Obesity (BMI 30-39.9) 03/28/20132016 Extrinsic asthma, unspecified 04/08/2010 03/28/2013 Hypertrophy of breast 12/17/20092012 Sprain of ankle, unspecified site 09/20/2007 09/30/2012 OBESITY 12/22/2005 03/28/2013 documented as of this encounter (statuses as of 10/28/2023) [facility] History of Past illness Narrative* Problem Noted Date Diagnosed Date Resolved Date UTI (lower urinary tract infection) 05/04/2014 03/12/2017 Abdominal pain, other specified site 10/13/2013 03/12/2017 Thoracic back pain 08/04/2013 7 Low back pain 08/04/2013 03/12/2017 Low HDL (under 40) 03/30/2013 7 Obesity (BMI 30-39.9) 03/28/20132016 Extrinsic asthma, unspecified 04/08/2010 03/28/2013 Hypertrophy of breast 12/17/20092012 Sprain of ankle, unspecified site 09/20/2007 09/30/2012 OBESITY 12/22/2005 03/28/2013 documented as of this encounter (statuses as of 11/17/2023) [facility] History of Past illness Narrative* Problem Noted Date Diagnosed Date Resolved Date UTI (lower urinary tract infection) 05/04/2014 03/12/2017 Abdominal pain, other specified site 10/13/2013 03/12/2017 Thoracic back pain 08/04/2013 7 Low back pain 08/04/2013 03/12/2017 Low HDL (under 40) 03/30/2013 7 Obesity (BMI 30-39.9) 03/28/20132016 Extrinsic asthma, unspecified 04/08/2010 03/28/2013 Hypertrophy of breast 12/17/20092012 Sprain of ankle, unspecified site 09/20/2007 09/30/2012 OBESITY 12/22/2005 03/28/2013 documented as of this encounter (statuses as of 11/26/2023) [facility] History of Past illness Narrative* Problem Noted Date Diagnosed Date Resolved Date UTI (lower urinary tract infection) 05/04/2014 03/12/2017 Abdominal pain, other specified site 10/13/2013 03/12/2017 Thoracic back pain 08/04/2013 7 Low back pain 08/04/2013 03/12/2017 Low HDL (under 40) 03/30/2013 7 Obesity (BMI 30-39.9) 03/28/20132016 Extrinsic asthma, unspecified 04/08/2010 03/28/2013 Hypertrophy of breast 12/17/20092012 Sprain of ankle, unspecified site 09/20/2007 09/30/2012 OBESITY 12/22/2005 03/28/2013 documented as of this encounter (statuses as of 12/07/2023) [facility] History of Past illness Narrative* Problem Noted Date Diagnosed Date Resolved Date UTI (lower urinary tract infection) 05/04/2014 03/12/2017 Abdominal pain, other specified site 10/13/2013 03/12/2017 Thoracic back pain 08/04/2013 7 Low back pain 08/04/2013 03/12/2017 Low HDL (under 40) 03/30/2013 7 Obesity (BMI 30-39.9) 03/28/20132016 Extrinsic asthma, unspecified 04/08/2010 03/28/2013 Hypertrophy of breast 12/17/20092012 Sprain of ankle, unspecified site 09/20/2007 09/30/2012 OBESITY 12/22/2005 03/28/2013 documented as of this encounter (statuses as of 12/07/2023) [facility] note* Diagnosis Vaginal itching- Primary Pruritus of genital organs Vaginal discharge Leukorrhea, not specified as infective [facility]* Diagnosis BV (bacterial vaginosis)- Primary Vaginitis and vulvovaginitis, unspecified Trichomonas infection Trichomoniasis, unspecified [facility]* Diagnosis Alkaline phosphatase elevation Other nonspecific abnormal serum enzyme levels [facility] noteNo assessment information availableWC[facility] Work Phone: Evaluation note* Diagnosis Abnormal liver ultrasound- Primary Nonspecific (abnormal) findings on radiological and other examination of biliary tract Fatty (change of) liver, not elsewhere classified Elevated LFTs Other abnormal blood chemistry [facility]* Diagnosis COPD with chronic bronchitis (HCC) Obstructive chronic bronchitis without exacerbation [facility]* Diagnosis Asthma with COPD with exacerbation (HCC)- Primary Chronic obstructive asthma with exacerbation Stress incontinence of urine [facility] Diagnosis Asthma with COPD with exacerbation (HCC) Chronic obstructive asthma with exacerbation [facility]* Diagnosis Encounter for screening for malignant neoplasm of colon- Primary Special screening for malignant neoplasms, colon Gastroesophageal reflux disease, unspecified whether esophagitis present Dysphagia, unspecified type [facility]* Diagnosis Asthma with COPD with exacerbation (HCC) Chronic obstructive asthma with exacerbation [facility]* Diagnosis Mild intermittent asthma without complication- Primary Unspecified asthma Abnormal diffusion capacity determined by pulmonary function test Cigarette smoker Tobacco use disorder Thrush Candidiasis of mouth [facility]* Diagnosis SOB (shortness of breath)- Primary Shortness of breath [facility]* Diagnosis Abnormal diffusion capacity determined by pulmonary function test- Primary Dyspnea and respiratory abnormalities Other dyspnea and respiratory abnormality [facility]* Diagnosis COPD with chronic bronchitis (HCC) Obstructive chronic bronchitis without exacerbation [facility]* Diagnosis Other specified hypothyroidism Well adult exam Routine general medical examination at a health care facility [facility]* Diagnosis Numbness and tingling in both hands- Primary [facility]* Diagnosis Abnormal diffusion capacity determined by pulmonary function test [facility]* Diagnosis SOB (shortness of breath) Shortness of breath [facility]* Diagnosis Lung nodules- Primary Other nonspecific abnormal finding of lung field [facility]* Diagnosis Callus of foot- Primary Corns and callosities Onychomycosis Dermatophytosis of nail [facility]* Diagnosis Bilateral upper abdominal pain- Primary Abdominal pain, right upper quadrant Tobacco use Tobacco use disorder Screening for colon cancer Special screening for malignant neoplasms, colon [facility]* Diagnosis COPD with chronic bronchitis (HCC) Obstructive chronic bronchitis without exacerbation [facility]* Diagnosis Other specified hypothyroidism Well adult exam Routine general medical examination at a health care facility [facility]* Diagnosis COPD with chronic bronchitis (HCC) Obstructive chronic bronchitis without exacerbation [facility]* Diagnosis Hyperthyroidism Thyrotoxicosis without mention of goiter or other cause, without mention of thyrotoxic crisis or storm [facility] Encounter for screening mammogram for breast cancer [facility]* Diagnosis Urinary frequency- Primary Possible exposure to STD Other specified personal history presenting hazards to health Marijuana use Cannabis abuse, unspecified Recreational drug use Other, mixed, or unspecified nondependent drug abuse, unspecified Lesion of face Female genital lesion Other specified disorders of female genital organs [facility] Bacterial vaginitis- Primary Vaginitis and vulvovaginitis, unspecified [facility] Diagnosis Other specified hypothyroidism Well adult exam Routine general medical examination at a health care facility COPD with chronic bronchitis (HCC) Obstructive chronic bronchitis without exacerbation [facility] Pain in left foot- Primary Pain in limb [facility] Diagnosis Lesion, skin- Primary [facility] Diagnosis Foot pain, left- Primary Pain in limb Lesion of face Recreational drug use Other, mixed, or unspecified nondependent drug abuse, unspecified Skin lesion Unspecified disorder of skin and subcutaneous tissue [facility] Pain in right foot- Primary Pain in limb [facility] Diagnosis Acute cough- Primary COPD with chronic bronchitis (HCC) Obstructive chronic bronchitis without exacerbation [facility] Diagnosis Routine physical examination- Primary Routine general medical examination at a health care facility Other specified hypothyroidism Fatigue, unspecified type Dyslipidemia Other and unspecified hyperlipidemia Vitamin D deficiency Unspecified vitamin D deficiency Need for pneumococcal 20-valent conjugate vaccination Subacute cough Cough SOB (shortness of breath) Shortness of breath Tobacco use Tobacco use disorder Marijuana use Cannabis abuse, unspecified [facility] COPD with chronic bronchitis (HCC) Obstructive chronic bronchitis without exacerbation [facility] Pain in joint involving ankle and foot, unspecified laterality- Primary Arthritis of midfoot Unspecified arthropathy, ankle and foot Posterior tibial tendon dysfunction Other disorders of synovium, tendon, and bursa Callus of foot Corns and callosities [facility] Diagnosis Left wrist pain- Primary Pain in joint, forearm [facility] Diagnosis Subacute cough Cough SOB (shortness of breath) Shortness of breath [facility] Diagnosis Dysuria- Primary Fatigue, unspecified type COPD with chronic bronchitis Obstructive chronic bronchitis without exacerbation Neck pain on left side Cervicalgia Acute cystitis with hematuria Acute cystitis Marijuana use Cannabis abuse, unspecified [facility] Diagnosis Encounter for screening mammogram for breast cancer [facility] Diagnosis Prurigo nodularis- Primary Lichenification and lichen simplex chronicus [facility] Diagnosis Prurigo nodularis- Primary Lichenification and lichen simplex chronicus [facility] Diagnosis Other specified hypothyroidism Well adult exam Routine general medical examination at a health care facility [facility] Diagnosis Prurigo nodularis- Primary Lichenification and lichen simplex chronicus [facility] Diagnosis UTI symptoms- Primary Other symptoms involving urinary system Urinary frequency Frequent urination Urinary frequency Screening for colon cancer Special screening for malignant neoplasms, colon [facility] Diagnosis Prurigo nodularis- Primary Lichenification and lichen simplex chronicus [facility]* Diagnosis Prurigo nodularis- Primary Lichenification and lichen simplex chronicus [facility]* Diagnosis Well adult exam- Primary Routine general medical examination at a health care facility Other specified hypothyroidism Dyslipidemia Other and unspecified hyperlipidemia IFG (impaired fasting glucose) Impaired fasting glucose [facility]* Diagnosis Prurigo nodularis- Primary Lichenification and lichen simplex chronicus [facility]* Diagnosis COPD with chronic bronchitis (HCC) Obstructive chronic bronchitis without exacerbation [facility]* Diagnosis Prurigo nodularis- Primary Lichenification and lichen simplex chronicus [facility]* Diagnosis COPD with chronic bronchitis (HCC) Obstructive chronic bronchitis without exacerbation Other specified hypothyroidism Well adult exam Routine general medical examination at a health care facility [facility] Diagnosis Dysuria- Primary Abrasion, elbow w/o infection Elbow, forearm, and wrist, abrasion or friction burn, without mention of infection [facility] Diagnosis Prurigo nodularis Lichenification and lichen simplex chronicus [facility] Diagnosis Other specified hypothyroidism Well adult exam Routine general medical examination at a health care facility [facility] Diagnosis Prurigo nodularis Lichenification and lichen simplex chronicus [facility]* Diagnosis Acute cough COPD with chronic bronchitis (HCC) Obstructive chronic bronchitis without exacerbation [facility]* Diagnosis Numbness and tingling in both hands [facility]* Diagnosis Prurigo nodularis Lichenification and lichen simplex chronicus [facility] Diagnosis Prurigo nodularis- Primary Lichenification and lichen simplex chronicus [facility]* Diagnosis Encounter for screening mammogram for breast cancer documented [facility]* Diagnosis COPD with chronic bronchitis (HCC) Obstructive chronic bronchitis without exacerbation [facility]* Diagnosis Well adult exam- Primary Routine general medical examination at a health care facility Other specified hypothyroidism COPD with chronic bronchitis (HCC) Obstructive chronic bronchitis without exacerbation Dyslipidemia Other and unspecified hyperlipidemia IFG (impaired fasting glucose) Impaired fasting glucose Marijuana use Cannabis abuse, unspecified Prurigo nodularis Lichenification and lichen simplex chronicus Acute cough Encounter for immunization Need for other specified prophylactic vaccination against single bacterial disease Encounter for screening examination for other mental health and behavioral disorders Screening for colon cancer Special screening for malignant neoplasms, colon documented [facility] this [facility]* Diagnosis COPD with chronic bronchitis (HCC)- Primary Obstructive chronic bronchitis without exacerbation [facility]* Diagnosis COPD with chronic bronchitis (HCC) Obstructive chronic bronchitis without exacerbation [facility]* Diagnosis Urinary frequency- Primary [facility]* Diagnosis COPD with chronic bronchitis (HCC) Obstructive chronic bronchitis without exacerbation Acute cough [facility]* Diagnosis Prurigo nodularis Lichenification and lichen simplex chronicus documented [facility]* Diagnosis Recurrent UTI (urinary tract infection)- Primary Urinary tract infection, site not specified documented [facility]* Diagnosis COPD with chronic bronchitis (HCC) Obstructive chronic bronchitis without exacerbation [facility]* Diagnosis IFG (impaired fasting glucose)- Primary Impaired fasting glucose Encounter for screening mammogram for malignant neoplasm of breast Other screening mammogram Screening for colon cancer Special screening for malignant neoplasms, colon Encounter for screening for osteoporosis Special screening for osteoporosis Asymptomatic postmenopausal status Dyslipidemia Other and unspecified hyperlipidemia Other specified hypothyroidism Dyspareunia in female Overweight with body mass index (BMI) of 29 to 29.9 in adult Tobacco use Tobacco use disorder documented [facility] this [facility]* Diagnosis Hypothyroidism, unspecified type- Primary [facility]* Diagnosis Acute cystitis with hematuria- Primary Acute cystitis Burning with urination Dysuria Pelvic pain Lower abdominal pain Abdominal pain, other specified site Microscopic hematuria Proteinuria, unspecified type documented in this encounter [facility] for referral (narrative)* Diagnostic Procedure Only (Routine) - Closed Specialty Diagnoses / Procedures Referred By Contac t Referred To Contact US IMAGING Diagnoses Alkaline phosphatase elevation Procedures US ABD RT UPPER QUADRANT US ABDOMINAL REAL TIME W/IMAGE LIMITED Gabriel Alcantara DO [address] [place] [address] Us Imaging Referral ID Status Reason Start Date Expiration Date V isits Requested Visits Authorized [id number] Closed Auto-Generate d Referral 11/27/2021 12/27/2022 1 1 [facility] for referral (narrative)* Outpatient Procedure (Routine) - Pending Review Specialty Diagnoses / Procedures Referred By Contmarlyn t Referred To Contact [facility] Diagnoses Asthma with COPD with exacerbation (HCC) Procedures LUNG DIFFUSION CAPACITY (DLCO) DIFFUSING CAPACITY Emanuel Templeton PA-C [address] [place] [address] [facility] [place] [address] [place] [address] Referral ID Status Reason Start Date Expiration Date Visits Requested Visits Authorized [id number] Pending Review Auto-Generat ed Referral 01/09/2022 02/08/2023 1 1 * Outpatient Procedure (Routine) - Pending Review Specialty Diagnoses / Procedures Referred By Contac t Referred To Contact [facility] Diagnoses Asthma with COPD with exacerbation (HCC) Procedures LUNG VOLUMES Emanuel Templeton PA-C [address] [place] [address] [address] Referral ID Status Reason Start Date Expiration Date Visits Requested Visits Authorized [id number] Pending Review Auto-Generat ed Referral 01/09/2022 02/08/2023 1 1 * Outpatient Procedure (Routine) - Pending Review Specialty Diagnoses / Procedures Referred By Contac t Referred To Contact [facility] Diagnoses Asthma with COPD with exacerbation (HCC) Procedures SPIROMETRY WITH DILATOR IF OBSTRUCTED BRNCDILAT RSPSE SPMTRY PRE&POST-BRNCDILAT ADMEmanuel Laureano PA-C [address] [place] [address] [address] Referral ID Status Reason Start Date Expiration Date Visits Requested Visits Authorized [id number] Pending Review Auto-Generat ed Referral 01/09/2022 02/08/2023 1 1 * Medication Prior Authorization - Closed Specialty Diagnoses / Procedures Referred By Contmarlyn t Referred To Contact Emanuel Templeton PA-C [address] [place] [address] Referral ID Status Reason Start Date Expiration Date Visits Re quested Visits Authorized [id number] Closed 1 1 * Medication Prior Authorization - Closed Specialty Diagnoses / Procedures Referred By Contmarlyn t Referred To Contact Emanuel Templeton PA-C [address] [place] [address] Referral ID Status Reason Start Date Expiration Date Visits Re quested Visits Authorized [id number] Closed 1 1 [facility] for referral (narrative)* Outpatient Procedure (Routine) - Authorized Specialty Diagnoses / Procedures Referred By Contac t Referred To Contact [facility] Diagnoses Numbness and tingling in both hands Procedures EMG(NEURO/NI) NERVE CONDUCTION STUDIES 9-10 STUDIES Stefan Washington APRN.VINEYARDIST [address] [place] [address] [facility] [place] [address] [place] [address] Referral ID Status Reason Start Date Expiration Date Visits Requested Visits Authorized [id number] Authorized Auto-Generat ed Referral 03/13/2022 08/23/2022 1 1 * Diagnostic Procedure Only (Routine) - Closed Specialty Diagnoses / Procedures [facility] X[facility] Diagnoses Numbness and tingling in both hands Procedures XR HAND GENERAL 3V PA/LAT/OBL BILATERAL RADEX HAND MINIMUM 3 VIEWS Stefan Washington APRN.VINEYARDIST [address] [place] [address] Xr Imaging Referral ID Status Reason Start Date Expiration Date V isits Requested Visits Authorized [id number] Closed Auto-Generate d Referral 03/13/2022 04/12/2023 1 1 [facility] for referral (narrative)* Outpatient Procedure (Routine) - Authorized Specialty Diagnoses / Procedures [facility] Diagnoses Bilateral upper abdominal pain Tobacco use Procedures EGD DIAGNOSTIC ESOPHAGOGASTRODUODENOSC OPY TRANSORAL DIAGNOSTIC Jerri Sands PA-C [address] [place] [address] [facility] [place] [address] [place] [address] Referral ID Status Reason Start Date Expiration Date Visits Requested Visits Authorized [id number] Authorized Auto-Generat ed Referral 01/21/2022 01/14/2023 1 1 * Outpatient Procedure (Routine) - Authorized Specialty Diagnoses / Procedures Referred By Contac t Referred To Contact [facility] Diagnoses Screening for colon cancer Procedures COLONOSCOPY SCREENING COLONOSCOPY FLX DX W/COLLJ SPEC WHEN PFRMD Jerri Sands PA-C [address] [place] [address] [facility] [place] [address] [place] [address] Referral ID Status Reason Start Date Expiration Date Visits Requested Visits Authorized [id number] Authorized Auto-Generat ed Referral 01/21/2022 01/14/2023 1 1 [facility] for referral (narrative)* Diagnostic Procedure Only (Routine) - Pending Review Specialty Diagnoses / Procedures Referred By Mary jones Referred To Contact BR IMAGING Diagnoses Encounter for screening mammogram for breast cancer Procedures NAREN SCREENING SCREENING MAMMOGRAPHY BI 2-VIEW BREAST INC CAD Gabriel Alcantara DO [address] [place] [address] [facility] Imaging [address] [place] [phone] Referral ID Status Reason Start Date Expiration Date Visits Requested Visits Authorized [id number] Pending Review Auto-Generat ed Referral 08/27/2022 09/26/2023 1 1 [facility] for referral (narrative)* Diagnostic Procedure Only (Routine) - Pending Review Specialty Diagnoses / Procedures Referred By Mary jones Referred To Contact XR IMAGING Diagnoses Pain in left foot Procedures XR FOOT GENERAL 3V AP/LAT/OBL LEFT RADEX FOOT COMPLETE MINIMUM 3 VIEWS Evert Rosa [address] [place] [address] Xr Imaging Referral ID Status Reason Start Date Expiration Date Visits Requested Visits Authorized [id number] Pending Review Auto-Generat ed Referral 12/18/2022 01/17/2024 1 1 [facility] for referral (narrative)* Diagnostic Procedure Only (Routine) - Pending Review Specialty Diagnoses / Procedures Referred By Contac t Referred To Contact XR IMAGING Diagnoses Pain in right foot Procedures XR FOOT GENERAL 3V AP/LAT/OBL RIGHT RADEX FOOT COMPLETE MINIMUM 3 VIEWS Evert Rosa [address] [place] [address] Xr Imaging Referral ID Status Reason Start Date Expiration Date Visits Requested Visits Authorized [id number] Pending Review Auto-Generat ed Referral 01/28/2023 02/27/2024 1 1 [facility] for referral (narrative)* Diagnostic Procedure Only (Routine) - Pending Review Specialty Diagnoses / Procedures Referred By Navidac t Referred To Contact BR IMAGING Diagnoses Encounter for screening mammogram for breast cancer Procedures NAREN SCREENING SCREENING MAMMOGRAPHY BI 2-VIEW BREAST INC CAD Gabriel Alcantara DO [address] [place] [address] [facility] [address] [place] [address] Referral ID Status Reason Start Date Expiration Date Visits Requested Visits Authorized [id number] Pending Review Auto-Generat ed Referral 07/29/2023 08/27/2024 1 1 [facility] for referral (narrative)* Diagnostic Procedure Only (Routine) - Closed Specialty Diagnoses / Procedures Referred By Contac t Referred To Contact XR IMAGING Diagnoses Numbness and tingling in both hands Procedures XR HAND GENERAL 3V PA/LAT/OBL BILATERAL RADEX HAND MINIMUM 3 VIEWS Stefan Washington, MIRTHA.VINEYARDIST [address] [place] [address] [place] [id number] Referral ID Status Reason Start Date Expiration Date V isits Requested Visits Authorized [id number] Closed Auto-Generate d Referral 03/13/2022 04/12/2023 1 1 [facility] for referral (narrative)* Diagnostic Procedure Only (Routine) - New Request Specialty Diagnoses / Procedures Referred By Mary t Referred To Contact BR IMAGING Diagnoses Encounter for screening mammogram for breast cancer Procedures NAREN SCREENING W ZAIRA SCREENING DIGITAL BREAST TOMOSYNTHESIS BI SCREENING MAMMOGRAPHY BI 2-VIEW BREAST INC CAD Gabriel Alcantara, DO [address] [place] [address] Br Imaging [address] [place] [address] Referral ID Status Reason Start Date Expiration Date Visits Requested Visits Authorized [id number] New Request Auto-Generat ed Referral 08/05/2025 1 1 [facility] for visit Narrative* Diagnostic Procedure Only (Routine) - Closed Specialty Diagnoses / Procedures Referred By Mary jones Referred To Contact US IMAGING Diagnoses Alkaline phosphatase elevation Procedures US ABD RT UPPER QUADRANT US ABDOMINAL REAL TIME W/IMAGE LIMITED Gabriel Alcantara, DO [address] [place] [address] Us Imaging Referral ID Status Reason Start Date Expiration Date V isits Requested Visits Authorized [id number] Closed Auto-Generate d Referral 11/27/2021 12/27/2022 1 1 [facility] for visit Narrative* Diagnostic Procedure Only (Routine) - Closed Specialty Diagnoses / Procedures Referred By Mary t Referred To Contact XR IMAGING Diagnoses Pain in left foot Procedures XR FOOT GENERAL 3V AP/LAT/OBL LEFT RADEX FOOT COMPLETE MINIMUM 3 VIEWS Evert Rosa [address] [place] [address] [place] [id number] Referral ID Status Reason Start Date Expiration Date V isits Requested Visits Authorized [id number] Closed Auto-Generate d Referral 12/18/2022 01/17/2024 1 1 [facility] for visit Narrative* Diagnostic Procedure Only (Routine) - Closed Specialty Diagnoses / Procedures Referred By Mary t Referred To Contact XR IMAGING Diagnoses Numbness and tingling in both hands Procedures XR HAND GENERAL 3V PA/LAT/OBL BILATERAL RADEX HAND MINIMUM 3 VIEWS Stefan Washington APRN.VINEYARDIST [address] [place] [address] [place] [id number] Referral ID Status Reason Start Date Expiration Date V isits Requested Visits Authorized [id number] Closed Auto-Generate d Referral 03/13/2022 04/12/2023 1 1 [facility] Summary Purpose Family History No Family History Records Found Relationship Condition Age at Onset Recorded Date/T toyin mother Anxiety and depression Unknown brother Acquired immunodeficiency syndrome Unknow n Advance Directives No Advanced Directives Records FoundDocuments on File Type Date Recorded Patient Filleter Expl anation Advance Directive(s) Advance Directive(s) 04/26/2020 6:38 AM Documents on File Type Date Recorded Patient Filleter Expl anation Advance Directive(s) Advance Directive(s) 04/26/2020 6:38 AM Advance Directive Response Recorded Date/ Time Living Will No December 19, 2021 4:25pm Power of Telecom Billing Analyst No December 19 4:25pm Advance Directive Response Recorded Date/ Time Living Will No February 27, 2022 2 :23pm Power of Telecom Billing Analyst No February 27, 2022 2:23pm Advance Directive Response Recorded Date/ Time Living Will No November 28, 2022 8:20pm Power of Telecom Billing Analyst No November 28 8:20pm Medications Administered Section Inactive Administered Medications - up to 3 most recent administrations Medication Order MAR Action Action Date Dose Rate Site azithromycin 1,000 mg tab(s) (ZITHROMAX) 1,000 mg, ORAL, ONCE, 1 dose, On Thu11/11/21 at 1030, Please document the antimicrobial indication: Empiric Given 11/11/2021 10:01 AM EDT 1,000 mg cefTRIAXone 500 mg intramuscular injection (ROCEPHIN) 500 mg, INTRAMUSCULAR, ONCE, 1 dose, On Thu11/11/21 at 1000, Please document the antimicrobial indication: Empiric Given 11/11/2021 10:01 AM EDT 500 mg Buttocks, Right Chief Complaint and Reason for Visit Chief Complaint fall abd pain DIZZY Chief Complaint fall abd pain DIZZY sob Chief Complaint abd pain DIZZY sob RIGHT ANKLE INJURY Chief Complaint abd pain DIZZY sob RIGHT ANKLE INJURY CERVIAL STRAIN Chief Complaint N/V, SHAKINESS Reason for Referral Specialty Diagnoses / Procedures Referred By Mary t Referred To Contact MR IMAGING Diagnoses Fatty (change of) liver, not elsewhere classified Abnormal liver ultrasound Elevated LFTs Procedures MRI LIVER WO/W IVCON MRI ABDOMEN W/O & W/CONTRAST MATERIAL Stefan Washington APRN.VINEYARDIST [address] [place] [address] Mr Imaging Referral ID Status Reason Start Date Expiration Date Visits Requested Visits Authorized [id number] Authorized Auto-Generat ed Referral 12/05/2021 02/03/2022 1 1 Specialty Diagnoses / Procedures Referred By Contac t Referred To Contact Diagnoses COPD with chronic bronchitis (HCC) Gabriel Alcantara, DO [address] [place] [address] Referral ID Status Reason Start Date Expiration Date Visits Re quested Visits Authorized [id number] Closed 1 1 Specialty Diagnoses / Procedures Referred By Contac t Referred To Contact CT IMAGING Diagnoses SOB (shortness of breath) Abnormal diffusion capacity determined by pulmonary function test Procedures CT CHEST WO IVCON DIAGNOSTIC COMPUTED TOMOGRAPHY THORAX W/O Lizbeth Mcclain MD [address] [place] [address] Ct Imaging Referral ID Status Reason Start Date Expiration Date Visits Requested Visits Authorized [id number] Additional Clinical Info Needed Auto-Generat ed Referral 02/13/2022 03/15/2023 1 1 Referral ID Status Reason Start Date Expiration Date V isits Requested Visits Authorized [id number] Denied Auto-Generat ed Referral Patient Cleared - Admin/Chairm an/Director advise to proceed 02/13/2022 04/17/2022 1 0 Specialty Diagnoses / Procedures Referred By Contac t Referred To Contact CT IMAGING Diagnoses Lung nodules Procedures CT CHEST WO IVCON DIAGNOSTIC COMPUTED TOMOGRAPHY THORAX W/O Lizbeth Mcclain MD [address] [facility] [place] [address] Ct Imaging Referral ID Status Reason Start Date Expiration Date Visits Requested Visits Authorized [id number] Pending Review Auto-Generat ed Referral 03/25/2023 04/24/2023 1 1 Specialty Diagnoses / Procedures Referred By Contac t Referred To Contact Diagnoses COPD with chronic bronchitis (HCC) Miranda Larsen, CORPORATE CONSULTANT.VINEYARDIST [address] [place] [address] Referral ID Status Reason Start Date Expiration Date V isits Requested Visits Authorized [id number] Pending Review 1 1 Specialty Diagnoses / Procedures Referred By Contac t Referred To Contact CT IMAGING Diagnoses Subacute cough SOB (shortness of breath) Procedures CT CHEST WO IVCON DIAGNOSTIC COMPUTED TOMOGRAPHY THORAX W/O CNTRST Gabriel Alcantara, DO [address] [place] [address] Ct Imaging Referral ID Status Reason Start Date Expiration Date Visits Requested Visits Authorized [id number] Waiting for Response Auto-Generat ed Referral 02/17/2023 03/18/2024 1 1 Specialty Diagnoses / Procedures Referred By Contac t Referred To Contact CT IMAGING Diagnoses Subacute cough SOB (shortness of breath) Procedures CT CHEST WO IVCON DIAGNOSTIC COMPUTED TOMOGRAPHY THORAX W/O CNTRST Gabriel Alcantara, DO [address] [place] [address] [place] [id number] Referral ID Status Reason Start Date Expiration Date V isits Requested Visits Authorized [id number] Closed Auto-Generat ed Referral Patient Cleared - Admin/Chairm an/Director advise to proceed or did not respond 02/17/2023 04/18/2024 1 1 Specialty Diagnoses / Procedures Referred By Contac t Referred To Contact Diagnoses COPD with chronic bronchitis (HCC) Miranda Delarosa, CORPORATE CONSULTANT.VINEYARDIST [address] [place] [address] Referral ID Status Reason Start Date Expiration Date Visits Re quested Visits Authorized [id number] Closed 1 1 Referral ID Status Reason Start Date Expiration Date V isits Requested Visits Authorized [id number] Pending Review 1 1 Specialty Diagnoses / Procedures Referred By Contac t Referred To Contact Diagnoses COPD with chronic bronchitis (HCC) Acute cough Stefan Washington, CORPORATE CONSULTANT.VINEYARDIST [address] [place] [address] Referral ID Status Reason Start Date Expiration Date Visits Re quested Visits Authorized [id number] Closed 1 1 Specialty Diagnoses / Procedures Referred By Contac t Referred To Contact Diagnoses Prurigo nodularis Stefan Washington, MIRTHA.VINEYARDIST [address] [place] [address] Referral ID Status Reason Start Date Expiration Date Visits Re quested Visits Authorized [id number] Denied 1 1 Additional Source Comments INFORMATION SOURCE (unrecogn ized section and content) DATE CREATED AUTHOR 05/02/2020 [facility] DATE CREATED AUTHOR AUTHOR'S ORGANIZ ATION 09/23/2023 [facility] DATE CREATED AUTHOR AUTHOR'S ORGANIZ ATION 06/10/2024 [facility] DATE CREATED AUTHOR AUTHOR'S ORGANIZ ATION 04/08/2025 [facility] Source Comments (unrecognize d section and content) In the event this informatio n is protected by the Federal Confidentiality of Alcohol and Drug Abuse Patient Records regulations: The Federal rules restrict any use of the information to criminally investigate or prosecute any alcohol or drug abuse patient.[facility] the event this information is protected by the Federal Confidentiality of Alcohol and Drug Abuse Patient Records regulations: The Federal rules restrict any use of the information to criminally investigate or prosecute any alcohol or drug abuse patient.[facility] the event this information is protected by the Federal Confidentiality of Alcohol and Drug Abuse Patient Records regulations: The Federal rules restrict any use of the information to criminally investigate or prosecute any alcohol or drug abuse patient.[facility] the event this information is protected by the Federal Confidentiality of Alcohol and Drug Abuse Patient Records regulations: The Federal rules restrict any use of the information to criminally investigate or prosecute any alcohol or drug abuse patient.[facility] the event this information is protected by the Federal Confidentiality of Alcohol and Drug Abuse Patient Records regulations: The Federal rules restrict any use of the information to criminally investigate or prosecute any alcohol or drug abuse patient.[facility] the event this information is protected by the Federal Confidentiality of Alcohol and Drug Abuse Patient Records regulations: The Federal rules restrict any use of the information to criminally investigate or prosecute any alcohol or drug abuse patient.[facility] the event this information is protected by the Federal Confidentiality of Alcohol and Drug Abuse Patient Records regulations: The Federal rules restrict any use of the information to criminally investigate or prosecute any alcohol or drug abuse patient.[facility] the event this information is protected by the Federal Confidentiality of Alcohol and Drug Abuse Patient Records regulations: The Federal rules restrict any use of the information to criminally investigate or prosecute any alcohol or drug abuse patient.[facility] the event this information is protected by the Federal Confidentiality of Alcohol and Drug Abuse Patient Records regulations: The Federal rules restrict any use of the information to criminally investigate or prosecute any alcohol or drug abuse patient.[facility] the event this information is protected by the Federal Confidentiality of Alcohol and Drug Abuse Patient Records regulations: The Federal rules restrict any use of the information to criminally investigate or prosecute any alcohol or drug abuse patient.[facility] the event this information is protected by the Federal Confidentiality of Alcohol and Drug Abuse Patient Records regulations: The Federal rules restrict any use of the information to criminally investigate or prosecute any alcohol or drug abuse patient.[facility] the event this information is protected by the Federal Confidentiality of Alcohol and Drug Abuse Patient Records regulations: The Federal rules restrict any use of the information to criminally investigate or prosecute any alcohol or drug abuse patient.[facility] the event this information is protected by the Federal Confidentiality of Alcohol and Drug Abuse Patient Records regulations: The Federal rules restrict any use of the information to criminally investigate or prosecute any alcohol or drug abuse patient.[facility] the event this information is protected by the Federal Confidentiality of Alcohol and Drug Abuse Patient Records regulations: The Federal rules restrict any use of the information to criminally investigate or prosecute any alcohol or drug abuse patient.[facility] the event this information is protected by the Federal Confidentiality of Alcohol and Drug Abuse Patient Records regulations: The Federal rules restrict any use of the information to criminally investigate or prosecute any alcohol or drug abuse patient.[facility] the event this information is protected by the Federal Confidentiality of Alcohol and Drug Abuse Patient Records regulations: The Federal rules restrict any use of the information to criminally investigate or prosecute any alcohol or drug abuse patient.[facility]In the event this information is protected by the Federal Confidentiality of Alcohol and Drug Abuse Patient Records regulations: The Federal rules restrict any use of the information to criminally investigate or prosecute any alcohol or drug abuse patient.[facility]In the event this information is protected by the Federal Confidentiality of Alcohol and Drug Abuse Patient Records regulations: The Federal rules restrict any use of the information to criminally investigate or prosecute any alcohol or drug abuse patient.[facility]In the event this information is protected by the Federal Confidentiality of Alcohol and Drug Abuse Patient Records regulations: The Federal rules restrict any use of the information to criminally investigate or prosecute any alcohol or drug abuse patient.[facility]In the event this information is protected by the Federal Confidentiality of Alcohol and Drug Abuse Patient Records regulations: The Federal rules restrict any use of the information to criminally investigate or prosecute any alcohol or drug abuse patient.[facility]In the event this information is protected by the Federal Confidentiality of Alcohol and Drug Abuse Patient Records regulations: The Federal rules restrict any use of the information to criminally investigate or prosecute any alcohol or drug abuse patient.[facility]In the event this information is protected by the Federal Confidentiality of Alcohol and Drug Abuse Patient Records regulations: The Federal rules restrict any use of the information to criminally investigate or prosecute any alcohol or drug abuse patient.[facility]In the event this information is protected by the Federal Confidentiality of Alcohol and Drug Abuse Patient Records regulations: The Federal rules restrict any use of the information to criminally investigate or prosecute any alcohol or drug abuse patient.[facility]In the event this information is protected by the Federal Confidentiality of Alcohol and Drug Abuse Patient Records regulations: The Federal rules restrict any use of the information to criminally investigate or prosecute any alcohol or drug abuse patient.[facility]In the event this information is protected by the Federal Confidentiality of Alcohol and Drug Abuse Patient Records regulations: The Federal rules restrict any use of the information to criminally investigate or prosecute any alcohol or drug abuse patient.[facility]In the event this information is protected by the Federal Confidentiality of Alcohol and Drug Abuse Patient Records regulations: The Federal rules restrict any use of the information to criminally investigate or prosecute any alcohol or drug abuse patient.[facility]In the event this information is protected by the Federal Confidentiality of Alcohol and Drug Abuse Patient Records regulations: The Federal rules restrict any use of the information to criminally investigate or prosecute any alcohol or drug abuse patient.[facility]In the event this information is protected by the Federal Confidentiality of Alcohol and Drug Abuse Patient Records regulations: The Federal rules restrict any use of the information to criminally investigate or prosecute any alcohol or drug abuse patient.[facility]In the event this information is protected by the Federal Confidentiality of Alcohol and Drug Abuse Patient Records regulations: The Federal rules restrict any use of the information to criminally investigate or prosecute any alcohol or drug abuse patient.[facility]In the event this information is protected by the Federal Confidentiality of Alcohol and Drug Abuse Patient Records regulations: The Federal rules restrict any use of the information to criminally investigate or prosecute any alcohol or drug abuse patient.[facility]In the event this information is protected by the Federal Confidentiality of Alcohol and Drug Abuse Patient Records regulations: The Federal rules restrict any use of the information to criminally investigate or prosecute any alcohol or drug abuse patient.[facility]In the event this information is protected by the Federal Confidentiality of Alcohol and Drug Abuse Patient Records regulations: The Federal rules restrict any use of the information to criminally investigate or prosecute any alcohol or drug abuse patient.[facility]In the event this information is protected by the Federal Confidentiality of Alcohol and Drug Abuse Patient Records regulations: The Federal rules restrict any use of the information to criminally investigate or prosecute any alcohol or drug abuse patient.[facility]In the event this information is protected by the Federal Confidentiality of Alcohol and Drug Abuse Patient Records regulations: The Federal rules restrict any use of the information to criminally investigate or prosecute any alcohol or drug abuse patient.[facility]In the event this information is protected by the Federal Confidentiality of Alcohol and Drug Abuse Patient Records regulations: The Federal rules restrict any use of the information to criminally investigate or prosecute any alcohol or drug abuse patient.[facility]In the event this information is protected by the Federal Confidentiality of Alcohol and Drug Abuse Patient Records regulations: The Federal rules restrict any use of the information to criminally investigate or prosecute any alcohol or drug abuse patient.[facility]In the event this information is protected by the Federal Confidentiality of Alcohol and Drug Abuse Patient Records regulations: The Federal rules restrict any use of the information to criminally investigate or prosecute any alcohol or drug abuse patient.[facility]In the event this information is protected by the Federal Confidentiality of Alcohol and Drug Abuse Patient Records regulations: The Federal rules restrict any use of the information to criminally investigate or prosecute any alcohol or drug abuse patient.[facility]In the event this information is protected by the Federal Confidentiality of Alcohol and Drug Abuse Patient Records regulations: The Federal rules restrict any use of the information to criminally investigate or prosecute any alcohol or drug abuse patient.[facility]In the event this information is protected by the Federal Confidentiality of Alcohol and Drug Abuse Patient Records regulations: The Federal rules restrict any use of the information to criminally investigate or prosecute any alcohol or drug abuse patient.[facility]In the event this information is protected by the Federal Confidentiality of Alcohol and Drug Abuse Patient Records regulations: The Federal rules restrict any use of the information to criminally investigate or prosecute any alcohol or drug abuse patient.[facility]In the event this information is protected by the Federal Confidentiality of Alcohol and Drug Abuse Patient Records regulations: The Federal rules restrict any use of the information to criminally investigate or prosecute any alcohol or drug abuse patient.[facility]In the event this information is protected by the Federal Confidentiality of Alcohol and Drug Abuse Patient Records regulations: The Federal rules restrict any use of the information to criminally investigate or prosecute any alcohol or drug abuse patient.[facility]In the event this information is protected by the Federal Confidentiality of Alcohol and Drug Abuse Patient Records regulations: The Federal rules restrict any use of the information to criminally investigate or prosecute any alcohol or drug abuse patient.[facility]In the event this information is protected by the Federal Confidentiality of Alcohol and Drug Abuse Patient Records regulations: The Federal rules restrict any use of the information to criminally investigate or prosecute any alcohol or drug abuse patient.[facility]In the event this information is protected by the Federal Confidentiality of Alcohol and Drug Abuse Patient Records regulations: The Federal rules restrict any use of the information to criminally investigate or prosecute any alcohol or drug abuse patient.[facility]In the event this information is protected by the Federal Confidentiality of Alcohol and Drug Abuse Patient Records regulations: The Federal rules restrict any use of the information to criminally investigate or prosecute any alcohol or drug abuse patient.[facility]In the event this information is protected by the Federal Confidentiality of Alcohol and Drug Abuse Patient Records regulations: The Federal rules restrict any use of the information to criminally investigate or prosecute any alcohol or drug abuse patient.[facility]In the event this information is protected by the Federal Confidentiality of Alcohol and Drug Abuse Patient Records regulations: The Federal rules restrict any use of the information to criminally investigate or prosecute any alcohol or drug abuse patient.[facility]In the event this information is protected by the Federal Confidentiality of Alcohol and Drug Abuse Patient Records regulations: The Federal rules restrict any use of the information to criminally investigate or prosecute any alcohol or drug abuse patient.[facility]In the event this information is protected by the Federal Confidentiality of Alcohol and Drug Abuse Patient Records regulations: The Federal rules restrict any use of the information to criminally investigate or prosecute any alcohol or drug abuse patient.[facility]In the event this information is protected by the Federal Confidentiality of Alcohol and Drug Abuse Patient Records regulations: The Federal rules restrict any use of the information to criminally investigate or prosecute any alcohol or drug abuse patient.[facility]In the event this information is protected by the Federal Confidentiality of Alcohol and Drug Abuse Patient Records regulations: The Federal rules restrict any use of the information to criminally investigate or prosecute any alcohol or drug abuse patient.[facility]In the event this information is protected by the Federal Confidentiality of Alcohol and Drug Abuse Patient Records regulations: The Federal rules restrict any use of the information to criminally investigate or prosecute any alcohol or drug abuse patient.[facility]In the event this information is protected by the Federal Confidentiality of Alcohol and Drug Abuse Patient Records regulations: The Federal rules restrict any use of the information to criminally investigate or prosecute any alcohol or drug abuse patient.[facility]In the event this information is protected by the Federal Confidentiality of Alcohol and Drug Abuse Patient Records regulations: The Federal rules restrict any use of the information to criminally investigate or prosecute any alcohol or drug abuse patient.[facility]In the event this information is protected by the Federal Confidentiality of Alcohol and Drug Abuse Patient Records regulations: The Federal rules restrict any use of the information to criminally investigate or prosecute any alcohol or drug abuse patient.[facility] the event this information is protected by the Federal Confidentiality of Alcohol and Drug Abuse Patient Records regulations: The Federal rules restrict any use of the information to criminally investigate or prosecute any alcohol or drug abuse patient.[facility]In the event this information is protected by the Federal Confidentiality of Alcohol and Drug Abuse Patient Records regulations: The Federal rules restrict any use of the information to criminally investigate or prosecute any alcohol or drug abuse patient.[facility]In the event this information is protected by the Federal Confidentiality of Alcohol and Drug Abuse Patient Records regulations: The Federal rules restrict any use of the information to criminally investigate or prosecute any alcohol or drug abuse patient.[facility] the event this information is protected by the Federal Confidentiality of Alcohol and Drug Abuse Patient Records regulations: The Federal rules restrict any use of the information to criminally investigate or prosecute any alcohol or drug abuse patient.[facility]In the event this information is protected by the Federal Confidentiality of Alcohol and Drug Abuse Patient Records regulations: The Federal rules restrict any use of the information to criminally investigate or prosecute any alcohol or drug abuse patient.[facility]In the event this information is protected by the Federal Confidentiality of Alcohol and Drug Abuse Patient Records regulations: The Federal rules restrict any use of the information to criminally investigate or prosecute any alcohol or drug abuse patient.[facility]In the event this information is protected by the Federal Confidentiality of Alcohol and Drug Abuse Patient Records regulations: The Federal rules restrict any use of the information to criminally investigate or prosecute any alcohol or drug abuse patient.[facility]In the event this information is protected by the Federal Confidentiality of Alcohol and Drug Abuse Patient Records regulations: The Federal rules restrict any use of the information to criminally investigate or prosecute any alcohol or drug abuse patient.[facility]In the event this information is protected by the Federal Confidentiality of Alcohol and Drug Abuse Patient Records regulations: The Federal rules restrict any use of the information to criminally investigate or prosecute any alcohol or drug abuse patient.[facility]In the event this information is protected by the Federal Confidentiality of Alcohol and Drug Abuse Patient Records regulations: The Federal rules restrict any use of the information to criminally investigate or prosecute any alcohol or drug abuse patient.[facility]In the event this information is protected by the Federal Confidentiality of Alcohol and Drug Abuse Patient Records regulations: The Federal rules restrict any use of the information to criminally investigate or prosecute any alcohol or drug abuse patient.[facility]In the event this information is protected by the Federal Confidentiality of Alcohol and Drug Abuse Patient Records regulations: The Federal rules restrict any use of the information to criminally investigate or prosecute any alcohol or drug abuse patient.[facility]In the event this information is protected by the Federal Confidentiality of Alcohol and Drug Abuse Patient Records regulations: The Federal rules restrict any use of the information to criminally investigate or prosecute any alcohol or drug abuse patient.[facility]In the event this information is protected by the Federal Confidentiality of Alcohol and Drug Abuse Patient Records regulations: The Federal rules restrict any use of the information to criminally investigate or prosecute any alcohol or drug abuse patient.[facility]In the event this information is protected by the Federal Confidentiality of Alcohol and Drug Abuse Patient Records regulations: The Federal rules restrict any use of the information to criminally investigate or prosecute any alcohol or drug abuse patient.[facility]In the event this information is protected by the Federal Confidentiality of Alcohol and Drug Abuse Patient Records regulations: The Federal rules restrict any use of the information to criminally investigate or prosecute any alcohol or drug abuse patient.[facility]In the event this information is protected by the Federal Confidentiality of Alcohol and Drug Abuse Patient Records regulations: The Federal rules restrict any use of the information to criminally investigate or prosecute any alcohol or drug abuse patient.[facility]In the event this information is protected by the Federal Confidentiality of Alcohol and Drug Abuse Patient Records regulations: The Federal rules restrict any use of the information to criminally investigate or prosecute any alcohol or drug abuse patient.[facility]In the event this information is protected by the Federal Confidentiality of Alcohol and Drug Abuse Patient Records regulations: The Federal rules restrict any use of the information to criminally investigate or prosecute any alcohol or drug abuse patient.[facility]In the event this information is protected by the Federal Confidentiality of Alcohol and Drug Abuse Patient Records regulations: The Federal rules restrict any use of the information to criminally investigate or prosecute any alcohol or drug abuse patient.[facility]In the event this information is protected by the Federal Confidentiality of Alcohol and Drug Abuse Patient Records regulations: The Federal rules restrict any use of the information to criminally investigate or prosecute any alcohol or drug abuse patient.[facility]In the event this information is protected by the Federal Confidentiality of Alcohol and Drug Abuse Patient Records regulations: The Federal rules restrict any use of the information to criminally investigate or prosecute any alcohol or drug abuse patient.[facility]In the event this information is protected by the Federal Confidentiality of Alcohol and Drug Abuse Patient Records regulations: The Federal rules restrict any use of the information to criminally investigate or prosecute any alcohol or drug abuse patient.[facility]In the event this information is protected by the Federal Confidentiality of Alcohol and Drug Abuse Patient Records regulations: The Federal rules restrict any use of the information to criminally investigate or prosecute any alcohol or drug abuse patient.[facility]In the event this information is protected by the Federal Confidentiality of Alcohol and Drug Abuse Patient Records regulations: The Federal rules restrict any use of the information to criminally investigate or prosecute any alcohol or drug abuse patient.[facility]In the event this information is protected by the Federal Confidentiality of Alcohol and Drug Abuse Patient Records regulations: The Federal rules restrict any use of the information to criminally investigate or prosecute any alcohol or drug abuse patient.[facility]In the event this information is protected by the Federal Confidentiality of Alcohol and Drug Abuse Patient Records regulations: The Federal rules restrict any use of the information to criminally investigate or prosecute any alcohol or drug abuse patient.[facility]In the event this information is protected by the Federal Confidentiality of Alcohol and Drug Abuse Patient Records regulations: The Federal rules restrict any use of the information to criminally investigate or prosecute any alcohol or drug abuse patient.[facility]In the event this information is protected by the Federal Confidentiality of Alcohol and Drug Abuse Patient Records regulations: The Federal rules restrict any use of the information to criminally investigate or prosecute any alcohol or drug abuse patient.[facility]In the event this information is protected by the Federal Confidentiality of Alcohol and Drug Abuse Patient Records regulations: The Federal rules restrict any use of the information to criminally investigate or prosecute any alcohol or drug abuse patient.[facility]In the event this information is protected by the Federal Confidentiality of Alcohol and Drug Abuse Patient Records regulations: The Federal rules restrict any use of the information to criminally investigate or prosecute any alcohol or drug abuse patient.[facility]In the event this information is protected by the Federal Confidentiality of Alcohol and Drug Abuse Patient Records regulations: The Federal rules restrict any use of the information to criminally investigate or prosecute any alcohol or drug abuse patient.[facility]In the event this information is protected by the Federal Confidentiality of Alcohol and Drug Abuse Patient Records regulations: The Federal rules restrict any use of the information to criminally investigate or prosecute any alcohol or drug abuse patient.[facility]In the event this information is protected by the Federal Confidentiality of Alcohol and Drug Abuse Patient Records regulations: The Federal rules restrict any use of the information to criminally investigate or prosecute any alcohol or drug abuse patient.[facility]In the event this information is protected by the Federal Confidentiality of Alcohol and Drug Abuse Patient Records regulations: The Federal rules restrict any use of the information to criminally investigate or prosecute any alcohol or drug abuse patient.[facility]In the event this information is protected by the Federal Confidentiality of Alcohol and Drug Abuse Patient Records regulations: The Federal rules restrict any use of the information to criminally investigate or prosecute any alcohol or drug abuse patient.[facility]In the event this information is protected by the Federal Confidentiality of Alcohol and Drug Abuse Patient Records regulations: The Federal rules restrict any use of the information to criminally investigate or prosecute any alcohol or drug abuse patient.[facility]In the event this information is protected by the Federal Confidentiality of Alcohol and Drug Abuse Patient Records regulations: The Federal rules restrict any use of the information to criminally investigate or prosecute any alcohol or drug abuse patient.[facility]In the event this information is protected by the Federal Confidentiality of Alcohol and Drug Abuse Patient Records regulations: The Federal rules restrict any use of the information to criminally investigate or prosecute any alcohol or drug abuse patient.[facility]In the event this information is protected by the Federal Confidentiality of Alcohol and Drug Abuse Patient Records regulations: The Federal rules restrict any use of the information to criminally investigate or prosecute any alcohol or drug abuse patient.[facility]In the event this information is protected by the Federal Confidentiality of Alcohol and Drug Abuse Patient Records regulations: The Federal rules restrict any use of the information to criminally investigate or prosecute any alcohol or drug abuse patient.[facility]In the event this information is protected by the Federal Confidentiality of Alcohol and Drug Abuse Patient Records regulations: The Federal rules restrict any use of the information to criminally investigate or prosecute any alcohol or drug abuse patient.[facility]In the event this information is protected by the Federal Confidentiality of Alcohol and Drug Abuse Patient Records regulations: The Federal rules restrict any use of the information to criminally investigate or prosecute any alcohol or drug abuse patient.[facility]In the event this information is protected by the Federal Confidentiality of Alcohol and Drug Abuse Patient Records regulations: The Federal rules restrict any use of the information to criminally investigate or prosecute any alcohol or drug abuse patient.[facility]In the event this information is protected by the Federal Confidentiality of Alcohol and Drug Abuse Patient Records regulations: The Federal rules restrict any use of the information to criminally investigate or prosecute any alcohol or drug abuse patient.[facility]In the event this information is protected by the Federal Confidentiality of Alcohol and Drug Abuse Patient Records regulations: The Federal rules restrict any use of the information to criminally investigate or prosecute any alcohol or drug abuse patient.[facility]In the event this information is protected by the Federal Confidentiality of Alcohol and Drug Abuse Patient Records regulations: The Federal rules restrict any use of the information to criminally investigate or prosecute any alcohol or drug abuse patient.[facility] HealthIn the event this information is protected by the Federal Confidentiality of Alcohol and Drug Abuse Patient Records regulations: The Federal rules restrict any use of the information to criminally investigate or prosecute any alcohol or drug abuse patient.[facility] HealthIn the event this information is protected by the Federal Confidentiality of Alcohol and Drug Abuse Patient Records regulations: The Federal rules restrict any use of the information to criminally investigate or prosecute any alcohol or drug abuse patient.[facility] HealthIn the event this information is protected by the Federal Confidentiality of Alcohol and Drug Abuse Patient Records regulations: The Federal rules restrict any use of the information to criminally investigate or prosecute any alcohol or drug abuse patient.[facility] the event this information is protected by the Federal Confidentiality of Alcohol and Drug Abuse Patient Records regulations: The Federal rules restrict any use of the information to criminally investigate or prosecute any alcohol or drug abuse patient.[facility] HealthIn the event this information is protected by the Federal Confidentiality of Alcohol and Drug Abuse Patient Records regulations: The Federal rules restrict any use of the information to criminally investigate or prosecute any alcohol or drug abuse patient.[facility] HealthIn the event this information is protected by the Federal Confidentiality of Alcohol and Drug Abuse Patient Records regulations: The Federal rules restrict any use of the information to criminally investigate or prosecute any alcohol or drug abuse patient.[facility] ClinicIn the event this information is protected by the Federal Confidentiality of Alcohol and Drug Abuse Patient Records regulations: The Federal rules restrict any use of the information to criminally investigate or prosecute any alcohol or drug abuse patient.[facility] HealthIn the event this information is protected by the Federal Confidentiality of Alcohol and Drug Abuse Patient Records regulations: The Federal rules restrict any use of the information to criminally investigate or prosecute any alcohol or drug abuse patient.[facility] HealthIn the event this information is protected by the Federal Confidentiality of Alcohol and Drug Abuse Patient Records regulations: The Federal rules restrict any use of the information to criminally investigate or prosecute any alcohol or drug abuse patient.[facility] HealthIn the event this information is protected by the Federal Confidentiality of Alcohol and Drug Abuse Patient Records regulations: The Federal rules restrict any use of the information to criminally investigate or prosecute any alcohol or drug abuse patient.[facility] HealthIn the event this information is protected by the Federal Confidentiality of Alcohol and Drug Abuse Patient Records regulations: The Federal rules restrict any use of the information to criminally investigate or prosecute any alcohol or drug abuse patient.[facility] HealthIn the event this information is protected by the Federal Confidentiality of Alcohol and Drug Abuse Patient Records regulations: The Federal rules restrict any use of the information to criminally investigate or prosecute any alcohol or drug abuse patient.[facility] HealthIn the event this information is protected by the Federal Confidentiality of Alcohol and Drug Abuse Patient Records regulations: The Federal rules restrict any use of the information to criminally investigate or prosecute any alcohol or drug abuse patient.[facility] HealthIn the event this information is protected by the Federal Confidentiality of Alcohol and Drug Abuse Patient Records regulations: The Federal rules restrict any use of the information to criminally investigate or prosecute any alcohol or drug abuse patient.[facility] Reason for Visit (unrecogniz ed section and content) Reason Comments Radiology CT Specialty Diagnoses / Procedures Referred By Mary jones Referred To Contact CT IMAGING Diagnoses Subacute cough SOB (shortness of breath) Procedures CT CHEST WO IVCON DIAGNOSTIC COMPUTED TOMOGRAPHY THORAX W/O CNTRST Gabriel Alcantara, DO [address] [place] [address] [place] [address] Referral ID Status Reason Start Date Expiration Date V isits Requested Visits Authorized [id number] Closed Auto-Generat ed Referral Patient Cleared - Admin/Chairm an/Director advise to proceed or did not respond 02/17/2023 04/18/2024 1 1 Reason Comments Vaginal Problem x2 months tx for yea st infection- diflucan/ also for trich , itching, irritation , visiting from [place] Reason Comments Results [place] Reason Comments Results Reason Comments Appointment Cancelled Reason Comments Results Reason Comments Prescription Refills Reason Onset Date Comments Refill Request 01/02/2022 Reason Comments Allergies Shortness of Breath since , called s quad last night Reason Comments Spirometry Specialty Diagnoses / Procedures Referred By Mary jones Ref[facility] Diagnoses Asthma with COPD with exacerbation (HCC) Procedures LUNG VOLUMES Emanuel Templeton PA-C [address] [place] [address] [facility] [address] [place], [place] [id number] Referral ID Status Reason Start Date Expiration Date V isits Requested Visits Authorized [id number] Closed Auto-Generate d Referral 01/15/2022 08/23/2022 1 1 Reason Comments Consult colonoscopy Specialty Diagnoses / Procedures Referred By Mary jones Referred To [facility] Diagnoses Asthma with COPD with exacerbation (HCC) Procedures SPIROMETRY WITH DILATOR IF OBSTRUCTED BRNCDILAT RSPSE SPMTRY PRE&POST-BRNCDILAT ADMN Emanuel Templeton, SONIA [address] [place] [address] [facility] [address] [place] [address] Referral ID Status Reason Start Date Expiration Date V isits Requested Visits Authorized [id number] Closed Auto-Generate d Referral 01/09/2022 02/08/2023 1 1 Reason Comments Patient Question Reason Comments New Patient Asthma Reason Comments Refill Request Reason Onset Date Comments Refill Request 02/27/2022 Reason Onset Date Comments Refill Request 03/05/2022 Reason Comments Numbness Bilateral hands, res tless leg syndrome Specialty Diagnoses / Procedures Referred By Contac t Referred To Contact Radiology / RADIO CT SCAN [facility] Diagnoses Abnormal results of pulmonary function studies CT CHEST WO IVCON Abnormal diffusion capacity determined by pulmonary function test [R94.2 Procedures DIAGNOSTIC COMPUTED TOMOGRAPHY THORAX W/O CNTRST CT WO CH 400 Lizbeth Mistry MD [address] [place] [address] [facility] [address] [place] [address] Referral ID Status Reason Start Date Expiration Date Visits Re quested Visits Authorized [id number] Closed 03/21/2022 05/20/2022 1 1 Reason Comments Results Chest CT Reason Comments Patient Question 06-23-2022 Colon EGD [facility] Reason Comments Established Patient Callous Reason Comments 04-11-2022 COLON EGD [facility] Reason Onset Date Comments Refill Request 05/21/2022 Reason Onset Date Comments Refill Request 06/11/2022 Reason Onset Date Comments Refill Request 06/16/2022 Reason Onset Date Comments Refill Request 07/15/2022 Reason Comments Urinary Frequency X 2 weeks. Possible exposure to STD. Requesting drug test. Reason Onset Date Comments Refill Request 12/08/2022 Reason Comments Orders Reason Comments Left foot pain Reason Comments Patient Update Reason Comments Pain (foot) Left foot x 1 week, no injury Reason Comments Cough X3 weeks with phlegm that is yellow/green Reason Comments Yearly Exam Reason Onset Date Comments Refill Request 03/24/2023 Reason Onset Date Comments Refill Request 03/25/2023 Reason Comments Established Patient consult for inserts Reason Comments Pain Lft thumb pain start ed about 2 weeks ago. No injury noted. Reason Comments Same Day Appointment urinary frequency x 1.5weeks no burning Reason Comments Rash Reason Onset Date Comments SPP Inflammatory Conditions - Treatment Referral 08/04/2023 Dupixent Insurance Authorization 08/04/2023 PA Submi ssion Pending Reason Onset Date Comments Refill Request 09/29/2023 Reason Onset Date Comments Refill Request 10/14/2023 Reason Onset Date Comments SPP Inflammatory Conditions - Medication Refill 10/20/2023 Dupixent Reason Comments UTI Reason Comments Acute Visit UTI symptoms- freque nt urination, urgency to urinate x2 weeks; no pain with urination, no discharge Reason Onset Date Comments SPP Inflammatory Conditions - Medication Refill 11/17/2023 Dupixent Reason Onset Date Comments Refill Request 11/25/2023 Reason Onset Date Comments Refill Request 12/04/2023 Reason Onset Date Comments SPP Inflammatory Conditions - Medication Refill 12/29/2023 Dupixent Reason Onset Date Comments Refill Request 01/01/2024 Reason Onset Date Comments Refill Request 01/13/2024 Reason Comments Lab Orders Reason Onset Date Comments Refill Request 02/17/2024 Reason Onset Date Comments Refill Request 02/26/2024 Reason Onset Date Comments SPP Inflammatory Conditions - Medication Refill 03/09/2024 Dupixent - NCA 01/2024 Reason Comments medcation refills/meds no longer on Reason Onset Date Comments Erroneous encounter-disregard 03/29/2024 Reason Comments Pain (Elbow Pain) UTI Pain worse since yes day Reason Onset Date Comments Opened In Error 04/12/2024 Reason Onset Date Comments SPP Inflammatory Conditions - Discontinuation Dupixent Reason Onset Date Comments Refill Request 04/20/2024 Reason Onset Date Comments Refill Request 04/21/2024 Reason Onset Date Comments Refill Request 06/16/2024 Reason Onset Date Comments SPP Inflammatory Conditions - Medication Refill 06/23/2024 Dupixent Reason Onset Date Comments SPP Inflammatory Conditions - Medication Refill 07/14/2024 Dupixent Reason Onset Date Comments Refill Request 09/07/2024 Reason Onset Date Comments Refill Request 09/08/2024 Reason Comments F/U 6 months Reason Onset Date Comments Refill Request 11/01/2024 Reason Comments Faxed to [facility] Reason Onset Date Comments Refill Request 11/04/2024 Reason Comments UTI Urinary frequency x 1 week, hurts when urinating Reason Onset Date Comments Refill Request 11/16/2024 Reason Onset Date Comments Refill Request 11/29/2024 Reason Onset Date Comments Refill Request 12/05/2024 Reason Comments Prior Authorization Request Reason Comments Letter Reason Onset Date Comments Results 11/07/2024 Reason Onset Date Comments Refill Request 01/27/2025 Reason Onset Date Comments Refill Request 02/20/2025 Reason Comments 6 Month Exam Reason Comments Results, Lab Reason Onset Date Comments Refill Request 03/21/2025 Reason Onset Date Comments Results 03/16/2025 Reason Comments Abdominal Pain Lower x 5 days, burn ing with urination Care Teams (unrecognized sec tion and content) Inseam Leveler Relationship Specialty Start Date End Date Gabriel Alcantara, DO [address] [place] [address] PCP - General Family Practice 04/04/13 Inseam Leveler Relationship Specialty Start Date End Date Gabriel Alcantara, DO [address] [place] [address] PCP - General Family Practice 04/04/13 Inseam Leveler Relationship Specialty Start Date End Date Gabriel Alcantara, DO [address] [place] [address] PCP - General Family Practice 04/04/13 Inseam Leveler Relationship Specialty Start Date End Date Gabriel Alcantara, DO [address] [place] [address] PCP - General Family Practice 04/04/13 Inseam Leveler Relationship Specialty Start Date End Date Gabriel Alcantara, DO [address] [place] [address] PCP - General Family Practice 04/04/13 Inseam Leveler Relationship Specialty Start Date End Date Gabriel Alcantara, DO [address] [place] [address] PCP - General Family Practice 04/04/13 Inseam Leveler Relationship Specialty Start Date End Date Gabriel Alcantara, DO [address] [place] [address] PCP - General Family Practice 04/04/13 Inseam Leveler Relationship Specialty Start Date End Date Gabriel Alcantara, DO [address] [place] [address] PCP - General Family Practice 04/04/13 Inseam Leveler Relationship Specialty Start Date End Date Gabriel Alcantara, DO [address] [place] [address] PCP - General Family Practice 04/04/13 Inseam Leveler Relationship Specialty Start Date End Date Gabriel Alcantara, DO [address] [place] [address] PCP - General Family Practice 04/04/13 Inseam Leveler Relationship Specialty Start Date End Date Gabriel Alcantara, DO [address] [place] [address] PCP - General Family Practice 04/04/13 Inseam Leveler Relationship Specialty Start Date End Date Gabriel Alcantara, DO [address] [place] [address] PCP - General Family Practice 04/04/13 Inseam Leveler Relationship Specialty Start Date End Date Gabriel Alcantara, DO [address] [place] [address] PCP - General Family Practice 04/04/13 Inseam Leveler Relationship Specialty Start Date End Date Gabriel Alcantara, DO [address] [place] [address] PCP - General Family Practice 04/04/13 Inseam Leveler Relationship Specialty Start Date End Date Gabriel Alcantara, DO [address] [place] [address] PCP - General Family Practice 04/04/13 Inseam Leveler Relationship Specialty Start Date End Date Gabriel Alcantara, DO [address] [place] [address] PCP - General Family Practice 04/04/13 Inseam Leveler Relationship Specialty Start Date End Date Gabriel Alcantara, DO [address] [place] [address] PCP - General Family Practice 04/04/13 Inseam Leveler Relationship Specialty Start Date End Date Gabriel Alcantara, DO [address] [place] [address] PCP - General Family Practice 04/04/13 Inseam Leveler Relationship Specialty Start Date End Date Gabriel Alcantara, DO [address] [place] [address] PCP - General Family Practice 04/04/13 Inseam Leveler Relationship Specialty Start Date End Date Gabriel Alcantara, DO [address] [place] [address] PCP - General Family Medicine 04/04/13 Inseam Leveler Relationship Specialty Start Date End Date Gabriel Alcantara, DO [address] [place] [address] PCP - General Family Medicine 04/04/13 Inseam Leveler Relationship Specialty Start Date End Date Gabriel Alcantara, DO [address] [place] [address] PCP - General Family Medicine 04/04/13 Inseam Leveler Relationship Specialty Start Date End Date Gabriel Alcantara, DO [address] [place] [address] PCP - General Family Medicine 04/04/13 Inseam Leveler Relationship Specialty Start Date End Date Gabriel Alcantara, DO [address] [place] [address] PCP - General Family Medicine 04/04/13 Inseam Leveler Relationship Specialty Start Date End Date Doorthea Ibanez NP [address] [place] [address] PCP - General Family Practice 08/04/22 Inseam Leveler Relationship Specialty Start Date End Date Gabriel Alcantara, DO [address] [place] [address] PCP - General Family Medicine 04/04/13 Team Status: Active Member Role Status Dates Dr. Gabriel Alcantara , DO Family Provider Active Dr. Gabriel Alcantara , DO Primary Care Provider Active Team Status: Inactive Member Role Status Dates Dr. Gabriel Alcantara , DO Primary Care Provider Active Dr. Randi Rebollar MD Emergency Provider Active Inseam Leveler Relationship Specialty Start Date End Date Gabriel Alcantara DO [address] [place] [address] PCP - General Family Medicine 04/04/13 Inseam Leveler Relationship Specialty Start Date End Date Gabriel Alcantara DO [address] [place] [address] PCP - General Family Medicine 04/04/13 Inseam Leveler Relationship Specialty Start Date End Date Gabriel Alcantara DO [address] [place] [address] PCP - General Family Medicine 04/04/13 Inseam Leveler Relationship Specialty Start Date End Date Gabriel Alcantara DO [address] [place] [address] PCP - General Family Medicine 04/04/13 Inseam Leveler Relationship Specialty Start Date End Date Gabriel Alcantara DO [address] [place] [address] PCP - General Family Medicine 04/04/13 Inseam Leveler Relationship Specialty Start Date End Date Gabriel Alcantara DO [address] [place] [address] PCP - General Family Medicine 04/04/13 Inseam Leveler Relationship Specialty Start Date End Date Gabriel Alcantara DO [address] [facility] [place] [address] PCP - General Family Medicine 04/04/13 Inseam Leveler Relationship Specialty Start Date End Date Gabriel Alcantara DO [address] [facility] [place] [address] PCP - General Family Medicine 04/04/13 Inseam Leveler Relationship Specialty Start Date End Date Gabriel Alcantara DO [address] [facility] [place] [address] PCP - General Family Medicine 04/04/13 Inseam Leveler Relationship Specialty Start Date End Date Gabriel Alcantara DO [address] [place] [address] PCP - General Family Medicine 04/04/13 Inseam Leveler Relationship Specialty Start Date End Date Gabriel Alcantara DO [address] [facility] [place] [address] PCP - General Family Medicine 04/04/13 Inseam Leveler Relationship Specialty Start Date End Date Gabriel Alcantara DO [address] [place] [address] PCP - General Family Medicine 04/04/13 Inseam Leveler Relationship Specialty Start Date End Date Gabriel Alcantara DO [address] [place] [address] PCP - General Family Medicine 04/04/13 Inseam Leveler Relationship Specialty Start Date End Date Gabriel Alcantara DO [address] [facility] [place] [address] PCP - General Family Medicine 04/04/13 Inseam Leveler Relationship Specialty Start Date End Date Gabriel Alcantara DO [address] [facility] [place] [address] PCP - General Family Medicine 04/04/13 Inseam Leveler Relationship Specialty Start Date End Date Gabriel Alcantara DO [address] [place] [address] PCP - General Family Medicine 04/04/13 Inseam Leveler Relationship Specialty Start Date End Date Gabriel Alcantara DO [address] [place] [address] PCP - General Family Medicine 04/04/13 Inseam Leveler Relationship Specialty Start Date End Date Gabriel Alcantara DO [address] [place] [address] PCP - General Family Medicine 04/04/13 Inseam Leveler Relationship Specialty Start Date End Date Gabriel Alcantara DO [address] [facility] [place] [address] PCP - General Family Medicine 04/04/13 Inseam Leveler Relationship Specialty Start Date End Date Gabriel Alcantara DO [address] [place] [address] PCP - General Family Medicine 04/04/13 Inseam Leveler Relationship Specialty Start Date End Date Gabriel Alcantara DO [address] [facility] [place] [address] PCP - General Family Medicine 04/04/13 Inseam Leveler Relationship Specialty Start Date End Date Gabriel Alcantara DO [address] [place] [address] PCP - General Family Medicine 04/04/13 Inseam Leveler Relationship Specialty Start Date End Date Gabriel Alcantara DO [address] [facility] [place] [address] PCP - General Family Medicine 04/04/13 Inseam Leveler Relationship Specialty Start Date End Date Gabirel Alcantara DO [address] [facility] [place] [address] PCP - General Family Medicine 04/04/13 Inseam Leveler Relationship Specialty Start Date End Date Gabriel Alcantara DO [address] [place] [address] PCP - General Family Medicine 04/04/13 Inseam Leveler Relationship Specialty Start Date End Date Gabriel Alcantara DO [address] [place] [address] PCP - General Family Medicine 04/04/13 Inseam Leveler Relationship Specialty Start Date End Date Gabriel Alcantara DO [address] [place] [address] PCP - General Family Medicine 04/04/13 Inseam Leveler Relationship Specialty Start Date End Date Gabriel Alcantara DO [address] [place] [place] [address] PCP - General Family Medicine 04/04/13 Inseam Leveler Relationship Specialty Start Date End Date Gabriel Alcantara DO [address] [facility] [place] [place] [address] PCP - General Family Medicine 04/04/13 Inseam Leveler Relationship Specialty Start Date End Date Gabriel Alcantara DO [address] [place] [address] PCP - General Family Medicine 04/04/13 Inseam Leveler Relationship Specialty Start Date End Date Gabriel Alcantara DO [address] [place] [address] PCP - General Family Medicine 04/04/13 Inseam Leveler Relationship Specialty Start Date End Date Gabriel Alcantara DO [address] [place] [address] PCP - General Family Medicine 04/04/13 Inseam Leveler Relationship Specialty Start Date End Date Gabriel Alcantara DO [address] [place] [address] PCP - General Family Medicine 04/04/13 Miranda Delarosa, CORPORATE CONSULTANT.VINEYARDIST [address] [place] [address] Street And Building Decorator Family Medicine 07/31/24 Stefan Washington, CORPORATE CONSULTANT.VINEYARDIST [address] [place] [address] [address] And Building Decorator [facility] 07/31/24 Inseam Leveler Relationship Specialty Start Date End Date Gabriel Alcantara DO [address] [place] [address] PCP - General Family Medicine 04/04/13 Miranda Delarosa, CORPORATE CONSULTANT.VINEYARDIST [address] [place] [address] [address] And Building Decorator Family Medicine 07/31/24 Stefan Washington, CORPORATE CONSULTANT.VINEYARDIST [address] [place] [address] Street And Building Decorator [facility] 07/31/24 Inseam Leveler Relationship Specialty Start Date End Date Gabriel Alcantara DO [address] [place] [address] PCP - General Family Medicine 04/04/13 Miranda Delarosa, CORPORATE CONSULTANT.VINEYARDIST [address] [place] [address] Street And Building Decorator [facility] 07/31/24 FelixStefan, CORPORATE CONSULTANT.VINEYARDIST [address] [place] [address] [address] [facility] 07/[facility]/24 Inseam Leveler Relationship Specialty Start Date End Date Gabriel Alcantara DO [address] [place] [address] PCP - General Family Medicine 04/04/13 Miranda Delarosa, CORPORATE CONSULTANT.VINEYARDIST [address] [place] [address] [address] [facility] 07/31/24 FelixStefan, CORPORATE CONSULTANT.VINEYARDIST [address] [place] [address] [facility] 07/31/24 Inseam Leveler Relationship Specialty Start Date End Date Gabriel Alcantara DO [address] [place] [address] PCP - General Family Medicine 04/04/13 Miranda Delarosa, CORPORATE CONSULTANT.VINEYARDIST [address] [place] [address] [address] [facility] 07/31/24 Stefan Washington, CORPORATE CONSULTANT.VINEYARDIST [address] [facility] [place] [address] [facility] 07/31/24 Inseam Leveler Relationship Specialty Start Date End Date Gabriel Alcantara DO [address] [facility] [place] [address] PCP - General Family Medicine 04/04/13 Miranda Delarosa, CORPORATE CONSULTANT.VINEYARDIST [address] [place] [address] [facility] 07/31/24 FelixtSefan, CORPORATE CONSULTANT.VINEYARDIST [address] [facility] [place] [address] [facility] 07/31/24 Inseam Leveler Relationship Specialty Start Date End Date Gabriel Alcantara DO [address] [facility] [place] [address] PCP - General Family Medicine 04/04/13 Miranda Delarosa, CORPORATE CONSULTANT.VINEYARDIST [address] [facility] [place] [address] [facility] 07/31/24 FelixStefan, CORPORATE CONSULTANT.VINEYARDIST [address] [place] [address] [facility] 07/31/24 Inseam Leveler Relationship Specialty Start Date End Date Gabriel Alcantara DO [address] [facility] [place] [address] PCP - General Family Medicine 04/04/13 [facility], CORPORATE CONSULTANT.VINEYARDIST [address] [facility] [place] [address] [address] And [facility] 07/31/24 Inseam Leveler Relationship Specialty Start Date End Date Gabriel Alcantara DO [address] [facility] [place] [address] PCP - General Family Medicine 04/04/13 [facility], CORPORATE CONSULTANT.VINEYARDIST [address] [facility] [place] [address] [address] [facility]24 Inseam Leveler Relationship Specialty Start Date End Date Gabriel Alcantara DO [address] [facility] [place] [place] [address] PCP - General Family Medicine 04/04/13 [facility], CORPORATE CONSULTANT.VINEYARDIST [address] [facility] [place] [address] [address] [facility] 07/31/24 Inseam Leveler Relationship Specialty Start Date End Date Gabriel Alcantara DO [address] [facility] [place] [address] PCP - General Family Medicine 04/04/13 [facility], CORPORATE CONSULTANT.VINEYARDIST [address] [facility] [place] [address] [facility] 07/31/24 Inseam Leveler Relationship Specialty Start Date End Date Gabriel Alcantara DO [address] [place] [address] PCP - General Family Medicine 04/04/13 Miranda Delarosa, CORPORATE CONSULTANT.VINEYARDIST [address] [place] [address] [address] [facility] 07/31/24 11/11/24 Stefan Washington, CORPORATE CONSULTANT.VINEYARDIST [address] [place] [address] [address] [facility] 07/31/24 Inseam Leveler Relationship Specialty Start Date End Date Gabriel Alcantara DO [address] [place] [address] PCP - General Family Medicine 04/04/13 Stefan Washington, CORPORATE CONSULTANT.VINEYARDIST [address] [place] [address] [facility] 07/31/24 Georgie Vazquez, CORPORATE CONSULTANT.VINEYARDIST [address] [place] [address] [facility] 02/06/25 Inseam Leveler Relationship Specialty Start Date End Date Gabriel Alcantara DO [address] [place] [address] PCP - General Family Medicine 04/04/13 Stefan Washington, CORPORATE CONSULTANT.VINEYARDIST [address] [place] [address] [facility] 07/31/24 Georgie Vazquez, CORPORATE CONSULTANT.VINEYARDIST [address] [place] [address] [facility] 02/06/25 Inseam Leveler Relationship Specialty Start Date End Date Gabriel Alcantara DO [address] [facility] [place] [address] PCP - General Family Medicine 04/04/13 Stefan Washington, CORPORATE CONSULTANT.VINEYARDIST [address] [facility] [place] [address] [address] And Building Decorator [facility] 07/31/24 Georgie Vazquez, CORPORATE CONSULTANT.VINEYARDIST [address] [place] [address] [address] And Building Decorator [facility] 02/06/25 Inseam Leveler Relationship Specialty Start Date End Date Gabriel Alcantara DO [address] [facility] [place] [address] PCP - General Family Medicine 04/04/13 FelixStefan, CORPORATE CONSULTANT.VINEYARDIST [address] [facility] [place] [address] [address] And Building Dec[facility]ator [facility] 07/31/24 Georgie Vazquez, CORPORATE CONSULTANT.VINEYARDIST [address] [place] [address] [address] And Building Decorator [facility] 02/06/25 Inseam Leveler Relationship Specialty Start Date End Date Gabriel Alcantara DO [address] [facility] [place] [address] PCP - General Family Medicine 04/04/13 Stefan Washington, CORPORATE CONSULTANT.VINEYARDIST [address] [facility] [place] [address] [address] And Building Dec[facility] 07/31/24 Georgie Vazquez, CORPORATE CONSULTANT.VINEYARDIST [address] [place] [address] [address] And [facility] Dec[facility] 02/06/25 Goals (unrecognized section and content) Goals may be documented in a n alternate sectionGoals may be documented in an alternate sectionGoals may be documented in an alternate sectionGoals may be documented in an alternate sectionGoals may be documented in an alternate section FOR RECORDS PERTAINING TO PATIENTS WHO ARE OR HAVE BEEN ENROLLED IN A CHEMICAL DEPENDENCY/SUBSTANCEABUSE PROGRAM, SOME INFORMATION MAY BE OMITTED. This clinical summary was aggregated from multiple sources. Caution should be exercised in using it in the provision of clinical care. This summary normalizes information from multiple sources, and as a consequence, information in this document may materially change the coding, format and clinical context of patient data. In addition, data may be omitted in some cases. CLINICAL DECISIONS SHOULD BE BASED ON THE PRIMARY CLINICAL RECORDS. [facility] [employer] [facility]. provides no warranty or guarantee of the accuracy or completeness of information in this document.
[2025-04-13] MEDS: Lidocaine 1% (20 ml mdv) 20 ML Vial 10 ML INFILT (22:51)
--- NOTE | 2025-04-13 23:07 | EX.ED.GENINJ ---
HPI History of Present Illness Chief Complaint: Bite Narrative Narrative: Patient is a 55-year-old female presenting to the emergency department for a dog bite. Patient has a past medical history as below. Patient reports that she was on her way home from her girlfriend's house when she saw a stray dog ran out from between 2 houses. She states that she stood in place and the dog snapped her and then ran away. Reports that then the dog counts up and bit and scratched her face. Denies any eye pain. Denies visual changes. She states that she has had rabies vaccines in the past. Reports her tetanus vaccine was over 10 years ago. Denies any other injuries. [facility] Medical History Loss of hearing Wears glasses Complete edentulism, class III Depression Anxiety Bipolar disorder Schizophrenia Alcohol use Marijuana use Bite from insect Thyroid disease Arthritis Easy bruising Back pain Injury of head and neck Syncope Diarrhea Gastric reflux Smoker Asthma Shortness of breath on exertion Leg cramps History of irregular heartbeat High cholesterol Hearing problem Frequent headaches COPD (chronic obstructive pulmonary disease) Home Medications ?Medication ?Instructions ?Recorded ?Last Taken ?Type levothyroxine 50 mcg tablet 125 mcg PO DAILY 07/01/16 Unknown History atorvastatin 40 mg tablet 40 mg PO DAILY 02/10/17 Unknown History venlafaxine 75 mg tablet 75 mg PO BID 02/10/17 Unknown History ciclesonide 160 mcg/actuation 1 puff inhalation DAILY 02/09/20 Unknown History aerosol inhaler (Alvesco) oxybutynin chloride 10 mg 10 mg PO DAILY 02/09/20 Unknown History tablet,extended release 24 hr cyclobenzaprine 10 mg tablet 10 mg PO TID PRN Muscle Spasm #20 06/05/20 Unknown Rx tabs quetiapine 50 mg tablet (Seroquel) 50 mg PO QHS 06/05/20 Unknown History budesonide-formoterol HFA 160 1 puff inhalation Q12H 07/02/21 Unknown History mcg-4.5 mcg/actuation aerosol inhaler (Symbicort) lansoprazole 15 mg capsule,delayed 15 mg PO DAILY 07/02/21 Unknown History release (Prevacid 24Hr) cholecalciferol (vitamin D3) 25 25 mcg PO DAILY 11/04/21 Unknown History mcg (1,000 unit) chewable tablet (Vitamin D3) metronidazole 500 mg tablet tablet PO 12/12/22 Unknown History meloxicam 15 mg tablet 15 mg PO DAILY #30 tabs 01/30/23 Unknown Rx albuterol sulfate 2.5 mg/3 mL 2.5 mg Q4H PRN PRN wheezing 04/13/25 Unknown History (0.083 %) solution for nebulization albuterol sulfate 90 mcg/actuation inhalation 04/13/25 Unknown History aerosol inhaler Allergy/AdvReac Type Severity Reaction Status Date / Time Penicillins Allergy Unknown Verified 04/13/25 21:35 adhesive tape AdvReac Rash Verified 04/13/25 21:35 bee venom protein (honey bee) AdvReac RED RAISED Verified 04/13/25 21:35 SKIN Family History Mother Anxiety and depression Brother AIDS (acquired immune deficiency syndrome) Surgical History Hx of colonoscopy Hx of breast biopsy Hx laparoscopic cholecystectomy History of bilateral breast reduction surgery Social History Smoking Status: Current every day smoker tobacco type: cigarettes alcohol intake: never substance use type: does not use additional social history: DOES TAKE ASPIRIN DOES TAKE IBUPROFEN ROS ROS ED ROS Narrative See HPI EXAM Physical Exam Narrative Exam Narrative: Vital signs: Reviewed General: Alert and oriented x 3. No acute distress HEENT: Head is normocephalic. V shaped 1 cm by 1 cm laceration below the left eyebrow. Small half cm laceration to the left sided nasal bridge and a similar sized laceration tot the right yarsani. No FB seen on irrigation. Sinuses nontender, pupils equal round and reactive. EOMI. Normal conjunctiva. nares are patent. Oropharynx and throat exams normal. Neck: Supple without lymphadenopathy nontender Cardiovascular: Regular rate and rhythm, no murmurs. No rubs or gallops. Normal S1 and S2 Respiratory: Clear to auscultation bilaterally. No wheezes, rales, rhonchi Abdominal: Soft and nontender. Normal bowel sounds. No guarding or rebound. Nonsurgical abdomen Extremities: No tenderness. No bruising. Normal range of motion. Normal sensation. Skin: No rash or redness. Neurological: Cranial nerves II through XII are grossly intact. Normal strength and sensation. Normal cerebellar function The rest of the physical exam is unremarkable Const Vital Signs: 04/13/25 21:35 04/13/25 21:47 Temperature 98.1 F 98.1 F Temperature Source Temporal Oral Pulse Rate 93 93 Respiratory Rate 18 18 Blood Pressure 136/81 H 138/81 H Blood Pressure Mean 99 100 Pulse Ox 99 99 Oxygen Delivery Method Room Air Room Air PROC Procedures Lacerations eyebrow: Length: 1 in Depth: Skin Shape: Flap Prep: Sterile Conditions Laceration repair: Irrigated and Lidocaine Irrigated (ml): 500 Number of Sutures/Ac: 2 Suture Information: Simple and 6-0 Comment: 2 simple interrupted sutures to the V-shaped laceration below the left eyebrow. It is a very superficial laceration, does not involve any of the subcutaneous fat. There is no foreign body noted. It was loosely approximated due to it being an animal bite/scratch MDM MDM MDM Narrative Medical decision making narrative: Patient is a 55-year-old female presenting to emergency department for a animal bite/scratch. Patient was seen and examined. Vitals are stable. Patient resting bed comfortably no acute distress. Wounds were irrigated copiously. Although this was a animal bite/scratch and ideally the wound should be kept open, and the wound below her left eyebrow was gaping. It was repaired, please see procedure note. Tetanus vaccine was updated. Given the patient has received rabies vaccines before, there is no indication for rabies immunoglobulin. She was given her rabies vaccine here and instructed to return for her day 3 dose as well. She was given wound care instructions including watching for signs of infection including redness, drainage or warmth. Instructed to return to her primary care doctor in 5 to 7 days for suture removal. Your evaluation in the Emergency Department did not reveal any acute reason for admission. However, I want to emphasize that you may be early in the course of a disease process or illness even if it is not present. For this reason you should follow-up within 24 hours for reevaluation with either your primary care physician or if necessary back here in the Emergency Department. You should return to the Emergency Department immediately if your symptoms worsen or new symptoms develop. Clinical impression Facial laceration Animal bite/scratch History & Record Review Discussion w/independent historian: Patient Discharge Plan Triage Chief Complaint: Bite ED Provider: Guillermina Fitzgerald Dx/Rx/DC Orders Clinical Impression: Animal bite, Facial laceration Instructions: Wound Care Dc, ED Dog Bite, ED Laceration, All Closures Prescriptions: No Action oxybutynin chloride 10 mg tablet extended release 24hr 10 mg PO DAILY Alvesco 160 mcg/actuation HFA aerosol inhaler 1 puff INHALATION DAILY metronidazole 500 mg tablet PO levothyroxine 50 MCG tablet 125 mcg PO DAILY atorvastatin 40 MG tablet 40 mg PO DAILY venlafaxine 75 MG tablet 75 mg PO BID quetiapine [Seroquel] 50 MG tablet 50 mg PO QHS cyclobenzaprine 10 MG tablet 10 mg PO TID PRN (Reason: Muscle Spasm) Qty: 20 0RF lansoprazole [Prevacid 24Hr] 15 mg Capsule,Delayed Release(Dr/Ec) 15 mg PO DAILY budesonide-formoterol [Symbicort] 160-4.5 mcg/actuation Hfa Aerosol Inhaler 1 puff INHALATION Q12H cholecalciferol (vitamin D3) [Vitamin D3] 25 mcg (1,000 unit) Tablet,Chewable 25 mcg PO DAILY albuterol sulfate 2.5 mg /3 mL (0.083 %) solution for nebulization 2.5 mg Q4H PRN PRN (Reason: wheezing) albuterol sulfate 90 mcg/actuation HFA aerosol inhaler inhalation meloxicam 15 mg tablet 15 mg PO DAILY Qty: 30 0RF Primary Care Provider: Gabriel Alcantara Referrals: Gabriel Alcantara DO [Primary Care Provider] - 5-7 Days (For suture removal and wound check) Activity Restrictions/Additional Instructions: You need to return in 3 days for a rabies vaccine. Keep the wound clean and dry. Return with any redness, drainage, warmth or swelling of the wounds. You need to have the sutures removed in 5 to 7 days. Your evaluation in the Emergency Department did not reveal any acute reason for admission. However, I want to emphasize that you may be early in the course of a disease process or illness even if it is not present. For this reason you should follow-up within 24 hours for reevaluation with either your primary care physician or if necessary back here in the Emergency Department. You should return to the Emergency Department immediately if your symptoms worsen or new symptoms develop. Print Language: Chilean Disposition Disposition: Home, Self Care
[2025-04-13 23:15] VITALS: BP 130/80; PULSE 77; RESP 16; TEMP 36.1; O2SAT 97
== END 2025-04-13 23:17 | disposition home or self-care (01) ==
PROVIDERS: Emergency Provider Student in an Organized Health Care Education/Training Program; PCP Student in an Organized Health Care Education/Training Program; Visit Provider Student in an Organized Health Care Education/Training Program
DX: S01.81XA Laceration without foreign body of other part of head, initial encounter (principal); J44.9 Chronic obstructive pulmonary disease, unspecified; E78.00 Pure hypercholesterolemia, unspecified; K21.9 Gastro-esophageal reflux disease without esophagitis; F17.210 Nicotine dependence, cigarettes, uncomplicated; S01.112A Laceration without foreign body of left eyelid and periocular area, initial encounter; S01.21XA Laceration without foreign body of nose, initial encounter; W54.0XXA Bitten by dog, initial encounter; Z23 Encounter for immunization
CPT/HCPCS: 12011; 90375; 90471; 90675; 90715; 96372; 99282

== ENCOUNTER 2025-05-11 17:41 | Emergency (ER) | payer MEDICAID, SELFPAY ==
[2025-05-11 17:44] VITALS: BP 111/71; PULSE 73; RESP 18; TEMP 36.6; O2SAT 99; BMI 28.4
[2025-05-11 18:22] LABS: Hematocrit 43.0 % (37-47); Hemoglobin 14.3 g/dL (12.0-15.0); Immature Granulocytes Count 0.030 X10^3/uL (0.0-0.0); Mean Corp Hgb Conc 33.3 g/dL (32-36); Mean Corpuscular Volume 84.8 fL (81-99); Mean Platelet Vol. 11.9 fl (6.2-12.0); NRBC Flagged by Analyzer 0 % (0-5); Platelet Count 233 K/mm3 (150-450); RBC Distribution Width CV 13.8 % (11.6-14.6); RBC Distribution Width SD 42.7 fl (35.1-43.9); Red Blood Count 5.07 M/mm3 (4.2-5.4); White Blood Count 9.5 K/mm3 (4.4-11.0)
--- NOTE | 2025-05-11 18:29 | ED.RN ---
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
--- NOTE | 2025-05-11 18:36 | ED.RN ---
1834:PATIENT AMA PAPERWORK PLACED AT BEDSIDE. PATIENT INFORMED SHE IS WAITING ON THE PROVIDER. BLANKET PROVIDED PER PATIENT REQUEST. PATIENT BEGAN TO EXIT THE ROOM. STATING, A PEN WOULD HELP. I NEED TO GO. PT. EDUCATED ON AMA PAPERWORK. 1834: ELOPEMENT FROM THE DEPARTMENT
--- NOTE | 2025-05-11 18:40 | EX.ED.DYSGE1 ---
HPI History of Present Illness Chief Complaint: General Illness Detail of Chief Complaint: Patient presents because of not feeling right. Informant: patient Onset/Context/Timing Onset: Today Timing: Continuous and Waxes and wanes Quality: I do not feel right. She also reports nausea. Location: Cannot specify Current Severity: Mild Maximum Severity: Moderate Worsened by: Nothing Relieved by: Nothing Associated Symptoms Associated Symptoms: Nausea Narrative Narrative: Patient is a 55-year-old woman. She has a history of tobacco use, problems with her knees who presents with not feeling right. She reports nausea. She had this in the past. She states she was treated with antiemetic. She denies fever, chills night sweats. She denies headache, visual, ocular auditory symptoms. She denies trouble with speech or swallowing. She denies upper respiratory tract infectious symptoms. She does have a cough. The cough is productive of green sputum. This is normal for her. She smokes 1 pack/day. She denies chest pressure, tightness or heaviness. She denies abdominal pain, diarrhea or constipation. Denies black or maroon stool. She denies dysuria, frequency, urgency or hematuria. She denies myalgias arthralgias. She denies rash. Prior similar symptoms: Yes Recent Illness/[facility]ization: [facility] Medical History Loss of hearing Wears glasses Complete edentulism, class III Depression Anxiety Bipolar disorder Schizophrenia Alcohol use Marijuana use Bite from insect Thyroid disease Arthritis Easy bruising Back pain Injury of head and neck Syncope Diarrhea Gastric reflux Smoker Asthma Shortness of breath on exertion Leg cramps History of irregular heartbeat High cholesterol Hearing problem Frequent headaches COPD (chronic obstructive pulmonary disease) Home Medications ?Medication ?Instructions ?Recorded ?Last Taken ?Type atorvastatin 40 mg tablet 40 mg PO DAILY 02/10/17 Unknown History venlafaxine 75 mg tablet 75 mg PO BID 02/10/17 Unknown History ciclesonide 160 mcg/actuation 1 puff inhalation DAILY 02/09/20 Unknown History aerosol inhaler (Alvesco) oxybutynin chloride 10 mg 10 mg PO DAILY 02/09/20 Unknown History tablet,extended release 24 hr cyclobenzaprine 10 mg tablet 10 mg PO TID PRN Muscle Spasm #20 06/05/20 Unknown Rx tabs quetiapine 50 mg tablet (Seroquel) 50 mg PO QHS 06/05/20 Unknown History budesonide-formoterol HFA 160 1 puff inhalation Q12H 07/02/21 Unknown History mcg-4.5 mcg/actuation aerosol inhaler (Symbicort) lansoprazole 15 mg capsule,delayed 15 mg PO DAILY 07/02/21 Unknown History release (Prevacid 24Hr) metronidazole 500 mg tablet tablet PO 12/12/22 Unknown History meloxicam 15 mg tablet 15 mg PO DAILY #30 tabs 01/30/23 Unknown Rx albuterol sulfate 2.5 mg/3 mL 2.5 mg continuous nebulization Q4H 04/13/25 Unknown History (0.083 %) solution for nebulization PRN PRN wheezing albuterol sulfate 90 mcg/actuation 2 puff inhalation Q4H PRN 04/13/25 Unknown History aerosol inhaler shortness of breath or wheezing cholecalciferol (vitamin D3) 125 125 mcg PO DAILY 05/11/25 Unknown History mcg (5,000 unit) capsule levothyroxine 125 mcg tablet 125 mcg PO DAILY 05/11/25 Unknown History Allergy/AdvReac Type Severity Reaction Status Date / Time Penicillins Allergy Unknown Verified 05/11/25 17:58 bee venom protein (honey bee) AdvReac Mild RED RAISED Verified 05/11/25 17:58 SKIN adhesive tape AdvReac Rash Verified 05/11/25 17:58 Family History Mother Anxiety and depression Brother AIDS (acquired immune deficiency syndrome) Surgical History Hx of colonoscopy Hx of breast biopsy Hx laparoscopic cholecystectomy History of bilateral breast reduction surgery Social History Smoking Status: Current every day smoker tobacco type: cigarettes alcohol intake: never substance use type: does not use additional social history: DOES TAKE ASPIRIN DOES TAKE IBUPROFEN ROS ROS ED Constitutional Constitutional ED: Denies chills, fever(s), subjective, sweats or weight loss Eyes Eyes: Denies blurry vision or change in vision ENT ENT ED: Denies ear pain, rhinorrhea or sore throat Cardiovascular Cardiovascular: Denies chest pain, orthopnea, palpitations, paroxysmal nocturnal dyspnea or racing heartbeat Respiratory/Chest Respiratory/Chest: Reports cough, dyspnea and sputum; Denies dyspnea on exertion, orthopnea or paroxysmal nocturnal dyspnea Gastrointestinal Gastrointestinal: Denies abdominal pain, constipation, diarrhea, melena, nausea or vomiting Genitourinary Genitourinary ED: Denies dysuria, hematuria or urinary frequency Musculoskeletal Musculoskeletal: Denies arthralgias or myalgias Integumentary Denies rash Neurologic Neurologic: Denies headache(s), paresthesias or weakness Endocrine Endocrinology: Denies cold intolerance or heat intolerance Hematologic/Lymphatic Hematologic/Lymphatic: Reports systems reviewed and no addt'l complaints, except as documented EXAM Physical Exam Const Vital Signs: 05/11/25 17:44 05/11/25 17:56 Temperature 97.9 F Temperature Source Oral Pulse Rate 73 Respiratory Rate 18 Respiratory Effort Normal Respiratory Pattern Normal Blood Pressure 111/71 Blood Pressure Mean 84 Pulse Ox 99 Oxygen Delivery Method Room Air Positive well nourished and well developed General Appearance ED: well developed and NAD; Negative for cyanotic, diaphoretic or pallor HEENT Reports moist mucous membranes HEENT Narrative: Patient is a dentulous. Posterior pharynx erythema exudate. Uvula midline. No deviation with protrusion. Eyes PERRL and EOMs intact bilaterally General Eye ED: Negative for pale conjunctiva or scleral icterus Neck no lymphadenopathy, supple and no JVD Resp normal respiratory effort and clear to auscultation bilaterally Cardio regular rate, regular rhythm, S1 normal heart sound, S2 normal heart sound and no murmurs GI normal to inspection, nondistended, normoactive bowel sounds, non-tender, non-distended and no masses; Negative for hepatosplenomegaly Back/Spine no CVA tenderness Extremity normal to inspection General Extremety ED: Negative for edema or tenderness General Extremity: Negative for edema Neuro CN's II-XII intact bilaterally and no sensory deficits noted Sensorium / Orientation: alert Motor Exam: strength 5/5 throughout Psych mental status grossly normal Skin no rashes or lesions noted, no wounds and skin turgor normal General Skin Exam: elasticity normal; Negative for jaundice or pallor MDM MDM MDM Narrative Medical decision making narrative: Patient with very vague nonspecific symptoms. Will treat with Zofran ODT. Will obtain CBC to assess white count differential and BMP to assess renal function electrolytes. History & Record Review Additional record(s) reviewed:: Prior outpatient record and Prior ED visit (Patient was seen on April 13 for animal bite in the emergency department. She was seen at urgent orthopedic visit November for osteoarthritis both knees. She was seen in ED November 2022 for nausea and vomiting.) Lab Data Attestation: I reviewed the patient's lab results. Lab results narrative: CBC is unremarkable. Labs: Laboratory Results - last 24 hr 05/11/25 18:15 WBC 9.5 RBC 5.07 Hgb 14.3 Hct 43.0 MCV 84.8 MCH 28.2 MCHC 33.3 RDW Std Deviation 42.7 RDW Coeff of Luis 13.8 Plt Count 233 MPV 11.9 Immature Gran % (Auto) 0.300 Neut % (Auto) 63.1 Lymph % (Auto) 29.3 [place] % (Auto) 5.9 Eos % (Auto) 0.8 Baso % (Auto) 0.6 Absolute Neuts (auto) 6.0 Absolute Lymphs (auto) 2.77 Nucleated RBC % 0 Treatment and Re-Evaluation :: I was informed the patient is requesting to leave. There is a note by nurse that AMA papers are at bedside. When I went in to speak to the patient she had left. Discharge Plan Triage Chief Complaint: General Illness ED Provider: Camilo Carcamo Dx/Rx/DC Orders Clinical Impression: Generalized weakness, Nausea Prescriptions: No Action oxybutynin chloride 10 mg tablet extended release 24hr 10 mg PO DAILY Alvesco 160 mcg/actuation HFA aerosol inhaler 1 puff INHALATION DAILY metronidazole 500 mg tablet PO atorvastatin 40 MG tablet 40 mg PO DAILY venlafaxine 75 MG tablet 75 mg PO BID quetiapine [Seroquel] 50 MG tablet 50 mg PO QHS cyclobenzaprine 10 MG tablet 10 mg PO TID PRN (Reason: Muscle Spasm) Qty: 20 0RF lansoprazole [Prevacid 24Hr] 15 mg Capsule,Delayed Release(Dr/Ec) 15 mg PO DAILY budesonide-formoterol [Symbicort] 160-4.5 mcg/actuation Hfa Aerosol Inhaler 1 puff INHALATION Q12H albuterol sulfate 2.5 mg /3 mL (0.083 %) solution for nebulization 2.5 mg continuous nebulization Q4H PRN PRN (Reason: wheezing) albuterol sulfate 90 mcg/actuation HFA aerosol inhaler 2 puff inhalation Q4H PRN (Reason: shortness of breath or wheezing) levothyroxine 125 mcg tablet 125 mcg PO DAILY cholecalciferol (vitamin D3) 125 mcg (5,000 unit) capsule 125 mcg PO DAILY meloxicam 15 mg tablet 15 mg PO DAILY Qty: 30 0RF Primary Care Provider: Gabriel Alcantara Referrals: Gabriel Alcantara, DO [Primary Care Provider, Medical] - 3-5 Days if not improving Print Language: Scottish Disposition Disposition: Home, Self Care Discharge Date/Time: 05/11/25 18:35
[2025-05-11 18:44] LABS: Anion Gap 13 (5-15); BUN 13 mg/dL (4-19); BUN/Creat Ratio 11.1 RATIO (10-20); Calcium,Total 10.4 mg/dL (7.6-11.0); Carbon Dioxide 24.0 mmol/L (21.0-32.0); Chloride 102 mmol/L (98-108); Estimated Creatinine Clearance 47.21 ml/min (50-250); Glucose 147 mg/dL (70-99); Potassium 4.2 mmol/L (3.3-5.1)
== END 2025-05-11 18:35 | disposition home or self-care (01) ==
LOC: ED 18:14
PROVIDERS: Emergency Provider Emergency Medicine; PCP Student in an Organized Health Care Education/Training Program; Visit Provider Emergency Medicine
DX: R53.1 Weakness (principal); J44.9 Chronic obstructive pulmonary disease, unspecified; R11.0 Nausea; E78.00 Pure hypercholesterolemia, unspecified; F17.210 Nicotine dependence, cigarettes, uncomplicated; Z79.890 Hormone replacement therapy; K21.9 Gastro-esophageal reflux disease without esophagitis; E07.9 Disorder of thyroid, unspecified
CPT/HCPCS: 80048; 85025; 99283

== ENCOUNTER 2025-05-18 13:40 | Emergency (ER) | payer MEDICAID, SELFPAY ==
[2025-05-18 13:41] VITALS: BP 156/49; PULSE 87; RESP 16; TEMP 36.8; O2SAT 99; BMI 28.8
[2025-05-18 14:49] LABS: Hematocrit 39.8 % (37-47); Hemoglobin 13.9 g/dL (12.0-15.0); Immature Granulocytes Count 0.040 X10^3/uL (0.0-0.0); Mean Corp Hgb Conc 34.9 g/dL (32-36); Mean Corpuscular Volume 83.8 fL (81-99); Mean Platelet Vol. 13.5 fl (6.2-12.0); NRBC Flagged by Analyzer 0 % (0-5); Platelet Count 195 K/mm3 (150-450); RBC Distribution Width CV 13.2 % (11.6-14.6); RBC Distribution Width SD 40.7 fl (35.1-43.9); Red Blood Count 4.75 M/mm3 (4.2-5.4); White Blood Count 12.9 K/mm3 (4.4-11.0)
[2025-05-18 15:02] LABS: Internal QC Validated? YES +Cl - CLEAR BKGD; Record Kit Lot#, Serum Preg. 0000964736
[2025-05-18 15:07] LABS: Barbiturate Urine NEGATIVE (< 200 ng/mL); Benzodiazepine Urine NEGATIVE (< 200 ng/mL); PCP Urine NEGATIVE (< 25 ng/mL); THC Urine PRESUMPTIVE POSITIVE (< 50 ng/mL)
[2025-05-18 15:10] LABS: Pregnancy, Serum, hCG Quali. POSITIVE Negative
[2025-05-18 15:18] LABS: Alcohol, Blood (Medical)-Serum < 10.1 mg/dL (<=10.0); Anion Gap 14 (5-15); BUN 10 mg/dL (4-19); BUN/Creat Ratio 11.2 RATIO (10-20); Calcium,Total 9.5 mg/dL (7.6-11.0); Carbon Dioxide 19.7 mmol/L (21.0-32.0); Chloride 98 mmol/L (98-108); Estimated Creatinine Clearance 58.68 ml/min (50-250); Glucose 103 mg/dL (70-99); Potassium 3.5 mmol/L (3.3-5.1)
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
[2025-05-18 15:40] VITALS: BP 135/119; PULSE 103; O2SAT 95
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
[2025-05-18 15:57] LABS: hCG Titer Quant., Serum 5 mIU/mL (<9 non-preg)
[2025-05-18] MEDS: Ziprasidone IM 20 MG/ML VIAL IM (16:41)
[2025-05-18 17:00] VITALS: BP 149/61; PULSE 96; RESP 16; O2SAT 99
--- NOTE | 2025-05-18 17:13 | CM.ED ---
Social Work SW called [facility] to see if they had open beds, no beds available. [facility] contacted, beds available. Referral sent. Plan: Inpatient psychiatric hospitalization pending acceptance. MONIKA Blackwell, CLINICAL ENGINEERING DIRECTOR
[2025-05-18 17:19] VITALS: BP 149/91; PULSE 96; RESP 16; O2SAT 99
--- NOTE | 2025-05-18 18:05 | CM.ED ---
Social Work Patient has been accepted at [facility]. Admitting is Dr. Ivory. Patient will be going to [address] [place] [address], N [phone] Option 1. Patient, patients boyfriend and patients sister aware of accepting facility and transport time. No further needs at this time. Monet Steinberg, TODDLER NANNY, TEASEL GIG OPERATOR
--- NOTE | 2025-05-18 18:38 | ED.RN ---
Attempted to call report to [facility] twice. First attempt the phone was hung up by receiving facility and second atempt no answer.
[2025-05-18 23:00] VITALS: BP 138/89; PULSE 96; RESP 16; TEMP 36.6; O2SAT 99
== END 2025-05-18 23:10 ==
LOC: ED 13:59
PROVIDERS: Emergency Provider Emergency Medicine; PCP Student in an Organized Health Care Education/Training Program; Visit Provider Emergency Medicine
DX: S71.151D Open bite, right thigh, subsequent encounter (principal); J44.9 Chronic obstructive pulmonary disease, unspecified; S71.152D Open bite, left thigh, subsequent encounter; E78.00 Pure hypercholesterolemia, unspecified; E03.9 Hypothyroidism, unspecified; K21.9 Gastro-esophageal reflux disease without esophagitis; F17.210 Nicotine dependence, cigarettes, uncomplicated; Z91.148 Patient's other noncompliance with medication regimen for other reason; W54.0XXD Bitten by dog, subsequent encounter
CPT/HCPCS: 80048; 80307; 82077; 84443; 84702; 84703; 85025; 96372; 99283; J3486

== ENCOUNTER 2025-06-05 15:17 | Emergency (ER) | payer MEDICAID, SELFPAY ==
[2025-06-05 15:18] VITALS: BP 128/69; PULSE 67; RESP 19; TEMP 36.6; O2SAT 100; BMI 29.3
--- NOTE | 2025-06-05 15:30 | CM.ED ---
Social work SW made aware of patient's presentation to [facility] ED. SW spoke to Johnson at Crisis in person who stated needing to know where patient went last time patient was at [facility] due to patient's family not wanting patient to go back there. This information was faxed to Crisis about 1530. Crisis handling assessment due to patient being sent by [facility]'s psychiatrist (Zeb). SW to help/follow as needed. Ghislaine Ellis, BRUSH MAKER MACHINE, [employer]
--- NOTE | 2025-06-05 15:30 | EX.ED.VIS.PS ---
HPI HPI - Psych History of Present Illness Chief Complaint: Mental Health Informant: patient and family (Sister) Onset/Context/Timing Onset: Weeks (2) Context: Gradual Onset Timing: Continuous Worsened by: - (Nothing) Relieved by: Nothing Associated Symptoms Associated Symptoms - Psych: Positive for Flight of Ideas, Increased activity and Agitated; Negative for Depressed, Suicidal Thoughts, Paranoia, Visual Hallucinations or Auditory Hallucinations Narrative Narrative: Patient presents with agitation and manic behavior that became worse today. Family states it has gotten worse over the past 2 weeks. Family states patient has become very agitated and manic. Patient states she yelled at her psychiatrist who pink slip trip to the emergency department. Patient denies any suicidal or homicidal ideations. Family states that the patient has been wandering off and has gone for a couple days at a time. Family states the patient is not caring for herself. [facility] Medical History (Updated 06/05/25 @ 19:[address] Bhanu Vallejo, DO) Loss of hearing Wears glasses Complete edentulism, class III Depression Anxiety Bipolar disorder Schizophrenia Alcohol use Marijuana use Bite from insect Thyroid disease Arthritis Easy bruising Back pain Injury of head and neck Syncope Diarrhea Gastric reflux Smoker Asthma Shortness of breath on exertion Leg cramps History of irregular heartbeat High cholesterol Hearing problem Frequent headaches COPD (chronic obstructive pulmonary disease) Home Medications ?Medication ?Instructions ?Recorded ?Last Taken ?Type atorvastatin 40 mg tablet 40 mg PO DAILY 02/10/17 Unknown History venlafaxine 75 mg tablet 75 mg PO BID 02/10/17 Unknown History ciclesonide 160 mcg/actuation 1 puff inhalation DAILY 02/09/20 Unknown History aerosol inhaler (Alvesco) oxybutynin chloride 10 mg 10 mg PO DAILY 02/09/20 Unknown History tablet,extended release 24 hr cyclobenzaprine 10 mg tablet 10 mg PO TID PRN Muscle Spasm #20 06/05/20 Unknown Rx tabs quetiapine 50 mg tablet (Seroquel) 50 mg PO QHS 06/05/20 Unknown History budesonide-formoterol HFA 160 1 puff inhalation Q12H 07/02/21 Unknown History mcg-4.5 mcg/actuation aerosol inhaler (Symbicort) lansoprazole 15 mg capsule,delayed 15 mg PO DAILY 07/02/21 Unknown History release (Prevacid 24Hr) metronidazole 500 mg tablet tablet PO 12/12/22 Unknown History meloxicam 15 mg tablet 15 mg PO DAILY #30 tabs 01/30/23 Unknown Rx albuterol sulfate 2.5 mg/3 mL 2.5 mg continuous nebulization Q4H 04/13/25 Unknown History (0.083 %) solution for nebulization PRN PRN wheezing albuterol sulfate 90 mcg/actuation 2 puff inhalation Q4H PRN 04/13/25 Unknown History aerosol inhaler shortness of breath or wheezing cholecalciferol (vitamin D3) 125 125 mcg PO DAILY 05/11/25 Unknown History mcg (5,000 unit) capsule levothyroxine 125 mcg tablet 125 mcg PO DAILY 05/11/25 Unknown History Allergy/AdvReac Type Severity Reaction Status Date / Time Penicillins Allergy Unknown Verified 05/18/25 13:45 bee venom protein (honey bee) AdvReac Mild RED RAISED Verified 05/18/25 13:45 SKIN adhesive tape AdvReac Rash Verified 05/18/25 13:45 Family History Mother Anxiety and depression Brother AIDS (acquired immune deficiency syndrome) Surgical History Hx of colonoscopy Hx of breast biopsy Hx laparoscopic cholecystectomy History of bilateral breast reduction surgery Social History (Updated 06/05/25 @ 15:[address] Bhanu Vallejo, DO) Smoking Status: Current every day smoker tobacco type: cigarettes alcohol intake: current alcohol intake frequency: holidays/special occasions only substance use type: marijuana additional social history: DOES TAKE ASPIRIN DOES TAKE IBUPROFEN ROS ROS ED Constitutional Constitutional ED: Denies chills or fever(s) Eyes Eyes: Denies blurry vision or change in vision ENT ENT ED: Denies rhinorrhea or sore throat Cardiovascular Cardiovascular: Denies chest pain or palpitations Respiratory/Chest Respiratory/Chest: Denies cough or dyspnea Gastrointestinal Gastrointestinal: Denies nausea or vomiting Genitourinary Genitourinary ED: Denies dysuria or hematuria Musculoskeletal Musculoskeletal: Denies back pain or neck pain Integumentary Denies abscess or rash Neurologic Neurologic: Denies headache(s) or weakness Allergic/Immunologic Allergic/Immunologic ED: Denies mouth swelling or urticaria EXAM Physical Exam Const Vital Signs: 06/05/25 15:18 Temperature 97.8 F Temperature Source Temporal Pulse Rate 67 Respiratory Rate 19 H Blood Pressure 128/69 H Blood Pressure Mean 88 Pulse Ox 100 Oxygen Delivery Method Room Air Positive well nourished and well developed General Appearance ED: well developed and NAD HEENT Reports moist mucous membranes Neck supple and no JVD Resp normal respiratory effort and clear to auscultation bilaterally Cardio Rate: regular rate Rhythm: regular rhythm GI non-tender and non-distended Palpation: soft Extremity normal to inspection General Extremety ED: Negative for edema or tenderness General Extremity: Negative for edema Neuro oriented x3, CN's II-XII intact bilaterally and no sensory deficits noted [place] Coma Scale: document GCS findings Spontaneous Obeys Commands Oriented 15 Sensorium / Orientation: alert Motor Exam: strength 5/5 throughout Skin Rashes: no rashes MDM MDM MDM Narrative Medical decision making narrative: Medical screening labs will be obtained. CBC will be obtained to assess for leukocytosis and anemia. Basic metabolic profile will be obtained to assess for electrolyte abnormality and renal function. Urinalysis will be obtained to assess for urinary tract infection and hematuria. Serum alcohol level will be obtained to assess for alcohol intoxication. Urine drug screen will be obtained to assess for substance abuse. History & Record Review Additional record(s) reviewed:: Prior outpatient record, Prior ED visit and Prior labs Lab Data Attestation: I reviewed the patient's lab results. Lab results narrative: CBC was reviewed and was within normal limits. Basic metabolic profile was reviewed and was essentially within normal limits. Serum hCG was reviewed and was negative. Urinalysis was reviewed. Leukocyte esterase was 100. There are 10-25 white blood cells and 1+ bacteria. The remainder is within normal limits. Urine drug screen was reviewed and was positive for cannabinoids. Serum alcohol level was reviewed and was less than 10.1. Labs: Laboratory Results - last 24 hr 06/05/25 06/05/25 06/05/25 16:09 16:19 16:40 WBC 9.1 RBC 4.55 Hgb 12.6 Hct 39.5 MCV 86.8 MCH 27.7 MCHC 31.9 L RDW Std Deviation 44.2 H RDW Coeff of Luis 14.0 Plt Count 267 MPV 10.9 Immature Gran % (Auto) 0.400 Neut % (Auto) 60.3 Lymph % (Auto) 32.9 [place] % (Auto) 5.2 Eos % (Auto) 1.0 Baso % (Auto) 0.2 Absolute Neuts (auto) 5.5 Absolute Lymphs (auto) 3.00 Nucleated RBC % 0 Sodium 141 Potassium 3.7 Chloride 105 Carbon Dioxide 23.6 Anion Gap 12 BUN 13 Creatinine 0.89 Estim Creat Clear Calc 61.93 Est GFR (MDRD) Non-Af 77 BUN/Creatinine Ratio 14.2 Glucose 129 H Calcium 9.7 Serum , Qual NEGATIVE Urine Color Yellow Urine Clarity Clear Urine pH 6.0 Ur Specific [place] 1.015 Urine Protein 15 H Urine Glucose (UA) Normal Urine Ketones Negative Urine Occult Blood 50 H Urine Nitrite Negative Urine Bilirubin Negative Urine Urobilinogen Normal Ur Leukocyte Esterase 100 H Urine RBC 0-5 SEEN Urine WBC 10-25 SEEN Ur Squamous Epith Cells 0-5 SEEN Urine Bacteria 1+ Urine Mucus 0 SEEN Urine Opiates Screen NEGATIVE U Buprenorphine Qual NEGATIVE Ur Oxycodone Screen NEGATIVE Urine Methadone Screen NEGATIVE Urine Fentanyl Screen NEGATIVE Ur Barbiturates Screen NEGATIVE Ur Phencyclidine Scrn NEGATIVE Ur Amphetamines Screen NEGATIVE U Benzodiazepines Scrn NEGATIVE Urine Cocaine Screen NEGATIVE U Cannabinoids Screen PRESUMPTIVE POSITIVE Ethyl Alcohol < 10.1 Treatment and Re-Evaluation Narrative: Patient was given a dose of Bactrim here for urinary tract infection. Patient is not septic. Patient is medically cleared for psychiatric placement. Crisis counselor was in to evaluate the patient and recommended admission to inpatient psychiatric facility. [place] slip was placed on the chart. Patient will be transferred to a psychiatric facility after crisis makes arrangements. Discharge Plan Triage Chief Complaint: Mental Health ED Provider: Bhanu Vallejo Dx/Rx/DC Orders Clinical Impression: Schizophrenia, Bipolar disorder, Urinary tract infection Prescriptions: No Action oxybutynin chloride 10 mg tablet extended release 24hr 10 mg PO DAILY Alvesco 160 mcg/actuation HFA aerosol inhaler 1 puff INHALATION DAILY metronidazole 500 mg tablet PO atorvastatin 40 MG tablet 40 mg PO DAILY venlafaxine 75 MG tablet 75 mg PO BID quetiapine [Seroquel] 50 MG tablet 50 mg PO QHS cyclobenzaprine 10 MG tablet 10 mg PO TID PRN (Reason: Muscle Spasm) Qty: 20 0RF lansoprazole [Prevacid 24Hr] 15 mg Capsule,Delayed Release(Dr/Ec) 15 mg PO DAILY budesonide-formoterol [Symbicort] 160-4.5 mcg/actuation Hfa Aerosol Inhaler 1 puff INHALATION Q12H albuterol sulfate 2.5 mg /3 mL (0.083 %) solution for nebulization 2.5 mg continuous nebulization Q4H PRN PRN (Reason: wheezing) albuterol sulfate 90 mcg/actuation HFA aerosol inhaler 2 puff inhalation Q4H PRN (Reason: shortness of breath or wheezing) levothyroxine 125 mcg tablet 125 mcg PO DAILY cholecalciferol (vitamin D3) 125 mcg (5,000 unit) capsule 125 mcg PO DAILY meloxicam 15 mg tablet 15 mg PO DAILY Qty: 30 0RF Primary Care Provider: Gabriel Alcantara Referrals: Gabriel Alcantara DO [Primary Care Provider, Medical] Print Language: Azeri Disposition Disposition: Psychiatric Hospital or Unit
[2025-06-05 16:16] LABS: Mucous, Urine 0 SEEN /hpf (<or=2+)
[2025-06-05 16:31] LABS: Hematocrit 39.5 % (37-47); Hemoglobin 12.6 g/dL (12.0-15.0); Immature Granulocytes Count 0.040 X10^3/uL (0.0-0.0); Mean Corp Hgb Conc 31.9 g/dL (32-36); Mean Corpuscular Volume 86.8 fL (81-99); Mean Platelet Vol. 10.9 fl (6.2-12.0); NRBC Flagged by Analyzer 0 % (0-5); Platelet Count 267 K/mm3 (150-450); RBC Distribution Width CV 14.0 % (11.6-14.6); RBC Distribution Width SD 44.2 fl (35.1-43.9); Red Blood Count 4.55 M/mm3 (4.2-5.4); White Blood Count 9.1 K/mm3 (4.4-11.0)
[2025-06-05 16:33] LABS: Color, Urine Yellow (Yellow); Glucose, Dipstick Normal (Normal); Ketone-Dipstick Negative (Negative); Leukocyte Esterase-Dipstick 100 /ul (Negative); Nitrite-Dipstick Negative (Negative); Occult Blood-Urine 50 /ul (Negative); Protein-Dipstick 15 mg/dl (Negative); Specific Gravity, Urine 1.015 (1.002-1.030); Urine Bilirubin Dipstick Negative (Negative)
[2025-06-05 16:44] LABS: Barbiturate Urine NEGATIVE (< 200 ng/mL); Benzodiazepine Urine NEGATIVE (< 200 ng/mL); PCP Urine NEGATIVE (< 25 ng/mL); THC Urine PRESUMPTIVE POSITIVE (< 50 ng/mL)
[2025-06-05 17:11] LABS: Internal QC Validated? YES +Cl - CLEAR BKGD; Pregnancy, Serum, hCG Quali. NEGATIVE Negative; Record Kit Lot#, Serum Preg. 980607
[2025-06-05 17:20] LABS: Alcohol, Blood (Medical)-Serum < 10.1 mg/dL (<=10.0); Anion Gap 12 (5-15); BUN 13 mg/dL (4-19); BUN/Creat Ratio 14.2 RATIO (10-20); Calcium,Total 9.7 mg/dL (7.6-11.0); Carbon Dioxide 23.6 mmol/L (21.0-32.0); Chloride 105 mmol/L (98-108); Estimated Creatinine Clearance 61.93 ml/min (50-250); Glucose 129 mg/dL (70-99); Potassium 3.7 mmol/L (3.3-5.1)
[2025-06-05 18:04] LABS: Red Blood Cells-Urine 0-5 SEEN /hpf (0-5); Squamous Epithelial Cells - UA 0-5 SEEN /hpf (5-10)
[2025-06-05] MEDS: Smz/Tmp Ds Tablet 1 TABLET PO (19:49)
[2025-06-05] MEDS: Ziprasidone IM 20 MG/ML VIAL IM (20:37)
--- NOTE | 2025-06-05 20:51 | CM.ED ---
Social work SW called Crisis (ph: [phone]) and spoke with Johnson. Johnson stated after patient is medically cleared, patient will be referred to [facility] per request from [facility]'s psychiatrist (Zeb). This information was passed on to traveling repair accountant Jany and Hayes Eve. No further needs identified at this time for SAUL. Ghislaine Ellis, G[employer] WELL PU[employer]ER, GEOTHERMAL POWERPLANT MECHANIC HELPER
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
[2025-06-05 21:44] VITALS: BP 126/62; PULSE 68; RESP 18; TEMP 36.6; O2SAT 99
== END 2025-06-05 22:43 ==
PROVIDERS: Emergency Provider Emergency Medicine; PCP Student in an Organized Health Care Education/Training Program; Visit Provider Emergency Medicine
DX: F20.9 Schizophrenia, unspecified (principal); F31.9 Bipolar disorder, unspecified; J44.9 Chronic obstructive pulmonary disease, unspecified; N39.0 Urinary tract infection, site not specified; E78.00 Pure hypercholesterolemia, unspecified; R45.1 Restlessness and agitation; K21.9 Gastro-esophageal reflux disease without esophagitis; F17.210 Nicotine dependence, cigarettes, uncomplicated
CPT/HCPCS: 36415; 80048; 80307; 81001; 82077; 84703; 85025; 87086; 87088; 96372; 99283; J3486

== ENCOUNTER 2025-06-20 11:46 | Emergency (ER) | payer MEDICAID, SELFPAY ==
[2025-06-20 11:46] VITALS: BP 128/64; PULSE 87; RESP 18; TEMP 36.8; O2SAT 99; BMI 28.8
--- NOTE | 2025-06-20 12:02 | ED.VIS.GI ---
HPI HPI - GI History of Present Illness Chief Complaint: Constipation Detail of Chief Complaint: Constipation and abdominal pain Informant: patient Narrative Narrative: Patient presents with constipation and abdominal pain. Patient states that she has not had a good bowel movement in about 3 to 4 days. She states that she just got out of a psychiatric facility where they changed her medications around about a week ago. Patient complains of diffuse abdominal pain and cramping. She took laxatives yesterday but only had very small hard ball of stool this morning. She said no fever. No vomiting. Patient states she chronically has GI problems [facility] Medical History (Updated 06/20/25 @ 13:[address] Krystal Arroyo, DO) Loss of hearing Wears glasses Complete edentulism, class III Depression Anxiety Bipolar disorder Schizophrenia Alcohol use Marijuana use Bite from insect Thyroid disease Arthritis Easy bruising Back pain Injury of head and neck Syncope Diarrhea Gastric reflux Smoker Asthma Shortness of breath on exertion Leg cramps History of irregular heartbeat High cholesterol Hearing problem Frequent headaches COPD (chronic obstructive pulmonary disease) Home Medications ?Medication ?Instructions ?Recorded ?Last Taken ?Type atorvastatin 40 mg tablet 40 mg PO DAILY 02/10/17 Unknown History ciclesonide 160 mcg/actuation 1 puff inhalation DAILY 02/09/20 Unknown History aerosol inhaler (Alvesco) oxybutynin chloride 10 mg 5 mg PO BID 02/09/20 Unknown History tablet,extended release 24 hr quetiapine 50 mg tablet (Seroquel) 400 mg PO QHS 06/05/20 Unknown History budesonide-formoterol HFA 160 1 puff inhalation Q12H 07/02/21 Unknown History mcg-4.5 mcg/actuation aerosol inhaler (Symbicort) cholecalciferol (vitamin D3) 125 125 mcg PO DAILY 05/11/25 Unknown History mcg (5,000 unit) capsule levothyroxine 125 mcg tablet 125 mcg PO DAILY 05/11/25 Unknown History trazodone 50 mg tablet 50 mg PO QHS PRN PRN sleep 06/05/25 Unknown History Allergy/AdvReac Type Severity Reaction Status Date / Time Penicillins Allergy Unknown Verified 06/20/25 11:47 bee venom protein (honey bee) AdvReac Mild RED RAISED Verified 06/20/25 11:47 SKIN adhesive tape AdvReac Rash Verified 06/20/25 11:47 Family History Mother Anxiety and depression Brother AIDS (acquired immune deficiency syndrome) Surgical History Hx of colonoscopy Hx of breast biopsy Hx laparoscopic cholecystectomy History of bilateral breast reduction surgery Social History Smoking Status: Current every day smoker tobacco type: cigarettes alcohol intake: current alcohol intake frequency: holidays/special occasions only substance use type: marijuana additional social history: DOES TAKE ASPIRIN DOES TAKE IBUPROFEN ROS ROS ED Review of Systems ROS Unobtainable: other Constitutional Constitutional ED: Reports lethargy; Denies chills, fever(s), sweats or weight loss Eyes Eyes: Denies blurry vision, change in vision or diplopia ENT ENT ED: Denies rhinorrhea or sore throat Cardiovascular Cardiovascular: Denies chest pain, orthopnea or racing heartbeat Respiratory/Chest Respiratory/Chest: Denies cough, dyspnea, dyspnea on exertion, orthopnea or sputum Gastrointestinal Gastrointestinal: Reports abdominal pain and constipation; Denies diarrhea, nausea or vomiting Genitourinary Genitourinary ED: Denies dysuria, hematuria or urinary frequency Musculoskeletal Musculoskeletal: Denies arthralgias, back pain, myalgias or neck pain Integumentary Denies abscess, Abrasions or rash Neurologic Neurologic: Denies headache(s) or weakness Psychiatric Psychiatric: Denies anxiety, depression or suicidal thoughts Endocrine Endocrinology: Denies polydipsia, polyphagia or polyuria Hematologic/Lymphatic Hematologic/Lymphatic: Denies easy bleeding, easy bruising or lymphadenopathy Allergic/Immunologic Allergic/Immunologic ED: Denies mouth swelling, tongue swelling or urticaria EXAM Physical Exam Const Vital Signs: 06/20/25 11:46 Temperature 98.3 F Temperature Source Oral Pulse Rate 87 Respiratory Rate 18 Blood Pressure 128/64 H Blood Pressure Mean 85 Pulse Ox 99 Oxygen Delivery Method Room Air Positive well nourished and well developed General Appearance ED: well developed and NAD HEENT Reports TM's clear and moist mucous membranes normocephalic and atraumatic; Negative for trauma or tenderness Tympanic Membrane ED: Yes TM's clear Eyes PERRL and EOMs intact bilaterally General Eye ED: Negative for pale conjunctiva or scleral icterus Neck no lymphadenopathy, supple and no JVD General: Negative for tenderness Chest Wall inspection of chest normal and palpation of chest normal Chest: Negative for tenderness Resp normal respiratory effort and clear to auscultation bilaterally Effort and Inspection: Negative for respiratory distress or pain with movement Auscultation: Negative for rhonchi, wheezes or diminished lung sounds Cardio regular rate, regular rhythm, S1 normal heart sound, S2 normal heart sound and no murmurs Peripheral Pulses: pulses 2+ throughout GI normal to inspection, nondistended, normoactive bowel sounds, soft to palpation, non-distended and no masses GI Narrative: Tenderness to palpation over left lower quadrant with some guarding. There is no rebound, rigidity, or peritoneal signs. No mass palpated. Rectal exam performed-small amount of hard stool in the rectal vault, no impaction, no fissures or hemorrhoids noted. Stool was brown and not grossly bloody Back/Spine no CVA tenderness and no thoracic nor lumbar tenderness Extremity normal to inspection General Extremety ED: Negative for edema General Extremity: Negative for edema Neuro oriented x3, CN's II-XII intact bilaterally, no sensory deficits noted and gait normal Sensorium / Orientation: awake, alert, oriented to person, oriented to place and oriented to time Motor Exam: strength 5/5 throughout and strength abnormal Psych mental status grossly normal Skin no rashes or lesions noted and no wounds MDM MDM MDM Narrative Medical decision making narrative: Patient presents to the emergency department with 3 to 4-day history of constipation. She complains of some abdominal discomfort. She has not had a fever or vomiting. Clinically looks well. She has had bowel issues in the past. She has not impacted on rectal exam. IV line established. CBC with differential obtained showed a white count of 10.9 with hemoglobin 13 and platelet count of 239. Chemistries unremarkable. Lactate less than 1. CT scan of the abdomen pelvis showed moderate amount of stool throughout the colon without evidence of obstruction or perforation or other acute process. I discussed results with patient. I offered her soapsuds enemas versus magnesium citrate at home and patient does not want to do the soapsuds enemas and would prefer to go home with the magnesium citrate. Recommend she follow-up with her primary care physician within next 3 to 5 days. Also advised on MiraLAX daily however she states she was on that for over a year and it did nothing for her. Patient advised to return if worsening abdominal pain, fever, vomiting, or condition should worsen anyway. Lab Data Attestation: I reviewed the patient's lab results. Labs: Laboratory Results - last 24 hr 06/20/25 12:13 WBC 10.9 RBC 4.61 Hgb 13.1 Hct 40.0 MCV 86.8 MCH 28.4 MCHC 32.8 RDW Std Deviation 43.5 RDW Coeff of Luis 13.8 Plt Count 239 MPV 11.5 Immature Gran % (Auto) 0.700 Neut % (Auto) 68.5 Lymph % (Auto) 23.2 [place] % (Auto) 5.5 Eos % (Auto) 1.7 Baso % (Auto) 0.4 Absolute Neuts (auto) 7.5 Absolute Lymphs (auto) 2.53 Nucleated RBC % 0 Sodium 140 Potassium 4.1 Chloride 104 Carbon Dioxide 14.5 L Anion Gap 22 H BUN 13 Creatinine 0.84 Estim Creat Clear Calc 64.98 Est GFR (MDRD) Non-Af 83 BUN/Creatinine Ratio 15.9 Glucose 82 Lactic Acid < 1.0 Calcium 8.4 Radiography Diagnostic Testing: Clinical Impression(s) from Imaging Studies Abdomen/Pelvis CT 06/20/25 12:58 IMPRESSION: Moderate amount of fecal material is seen throughout the colon. Status post cholecystectomy. Reading Location: [id number] Discharge Plan Triage Chief Complaint: Constipation ED Provider: Krystal Arroyo Dx/Rx/DC Orders Clinical Impression: Constipation Instructions: ED Constipation (Adult) Prescriptions: No Action oxybutynin chloride 10 mg tablet extended release 24hr 5 mg PO BID Alvesco 160 mcg/actuation HFA aerosol inhaler 1 puff INHALATION DAILY atorvastatin 40 MG tablet 40 mg PO DAILY quetiapine [Seroquel] 50 MG tablet 400 mg PO QHS budesonide-formoterol [Symbicort] 160-4.5 mcg/actuation Hfa Aerosol Inhaler 1 puff INHALATION Q12H levothyroxine 125 mcg tablet 125 mcg PO DAILY cholecalciferol (vitamin D3) 125 mcg (5,000 unit) capsule 125 mcg PO DAILY trazodone 50 mg tablet 50 mg PO QHS PRN PRN (Reason: sleep) Primary Care Provider: Gabriel Alcantara Referrals: Gabriel Alcantara, DO [Primary Care Provider, Medical] - 3-5 Days Print Language: Greenlandic Disposition Disposition: Home, Self Care
--- NOTE | 2025-06-20 12:03 | ED.RN ---
this RN bedside while Dr. Nuñez performed rectal exam
[2025-06-20] MEDS: 0.9% Normal Saline (1000mL) 1,000 ML 125 ML IV (12:17)
[2025-06-20 12:29] LABS: Hematocrit 40.0 % (37-47); Hemoglobin 13.1 g/dL (12.0-15.0); Immature Granulocytes Count 0.080 X10^3/uL (0.0-0.0); Mean Corp Hgb Conc 32.8 g/dL (32-36); Mean Corpuscular Volume 86.8 fL (81-99); Mean Platelet Vol. 11.5 fl (6.2-12.0); NRBC Flagged by Analyzer 0 % (0-5); Platelet Count 239 K/mm3 (150-450); RBC Distribution Width CV 13.8 % (11.6-14.6); RBC Distribution Width SD 43.5 fl (35.1-43.9); Red Blood Count 4.61 M/mm3 (4.2-5.4); White Blood Count 10.9 K/mm3 (4.4-11.0)
[2025-06-20 12:52] LABS: Anion Gap 22 (5-15); BUN 13 mg/dL (4-19); BUN/Creat Ratio 15.9 RATIO (10-20); Calcium,Total 8.4 mg/dL (7.6-11.0); Carbon Dioxide 14.5 mmol/L (21.0-32.0); Chloride 104 mmol/L (98-108); Estimated Creatinine Clearance 64.98 ml/min (50-250); Glucose 82 mg/dL (70-99); Potassium 4.1 mmol/L (3.3-5.1)
--- NOTE | 2025-06-20 12:58 | CT_ITS ---
PROCEDURE: ABDOMEN/PELVIS WITHOUT CONT 06/20/2025 REASON FOR EXAM: ABDOMINAL PAIN, CONSTIPATION TECHNIQUE: Procedure Code: CTABDPEL Modality: CT Procedure: ABDOMEN/PELVIS WITHOUT CONT Noncontrast technique limits evaluation of the abdominal and pelvic viscera. Coronal and Sagittal reconstruction series were provided. One or more dose reduction techniques were used (e.g., Automated exposure control, adjustment of the mA and/or kV according to patient size, use of iterative reconstruction technique). RADIATION DOSE SUMMARY: CTDlvol: 7.21 mGy DLP: 372.82 mGycm COMPARISON: None FINDINGS: Lung bases: Mild degree of dependent bibasilar atelectasis. No coronary artery calcification. Liver: Normal size. No obvious mass. Gallbladder: Surgically absent. Spleen: Normal size. Pancreas: Normal size. No surrounding inflammation. Adrenals: Unremarkable Kidneys: No urolithiasis. No hydronephrosis. Bladder: Distended urinary bladder. Reproductive Organs: Unremarkable Bowel: Moderate amount of fecal material is seen throughout the colon. Appendix: Unremarkable Lymph nodes: Unremarkable. Vasculature: Mild diffuse atherosclerotic calcifications are noted. Peritoneum / Retroperitoneum: Unremarkable Bones: Unremarkable CT/Abdomen/Pelvis without Cont IMPRESSION: Moderate amount of fecal material is seen throughout the colon. Status post cholecystectomy. Reading Location: [id number]
--- NOTE | 2025-06-20 13:31 | ED.RN ---
this RN to bedside d/t pt stenocaptioner light requesting food. Pt states I have been here three hours and i want something to eat. this RN educates pt that the CT scan has not been read yet so for her safety we need to hold off on eating anything. Pt states well if it isn't read in an hour, I am leaving here. Be prepared.
[2025-06-20 13:44] VITALS: PULSE 98; RESP 16; O2SAT 100
[2025-06-20] MEDS: Magnesium Citrate 300 ML PO (13:45)
== END 2025-06-20 13:47 | disposition home or self-care (01) ==
PROVIDERS: Emergency Provider Emergency Medicine; PCP Student in an Organized Health Care Education/Training Program; Visit Provider Emergency Medicine
DX: K59.00 Constipation, unspecified (principal); J44.9 Chronic obstructive pulmonary disease, unspecified; E78.00 Pure hypercholesterolemia, unspecified; R10.9 Unspecified abdominal pain; F17.210 Nicotine dependence, cigarettes, uncomplicated
CPT/HCPCS: 74176; 80048; 83605; 85025; 96360; 99283; A4216